=== PATIENT | male | born 1955 | race Caucasian/White ===

== ENCOUNTER 2017-08-11 15:19 | Emergency (ER) | payer MEDICARE, OTHER ==
[~2017-08-11] VITALS: Ht 188 cm; Wt 125.0 kg
[~2017-08-11 15:19] MED LIST: BISA10SU8 PR; CLIN150 PO; CLON.1 PO; FERR324T4 PO; FLEEENE3 PR; FURO1TAB93 PO; HYDRA50 PO; ISOS60TA PO; LANTUS2P SQ; LANTUSP SQ; LISI10 PO; MAGN1SOL2 PO; MAGN30S PO; MELA3TAB PO; METO25 PO; NEPHTAB3 PO; NIFE90 PO; NOVOLOGP2 SQ; PERC5TAB12 PO; PHEN100 PO; PREG300 PO; SPIR25 PO; ZOLP10TA3 PO; [UNRECOGNIZED DRUG - CODE] PO
[2017-08-11 15:22] VITALS: BP 186/89; PULSE 112; RESP 20; O2SAT 97
[2017-08-11] MEDS ORDERED: SODIUM CHLORIDE 0.9% FLUSH 10 ML FLUSH IVF PRN (15:30)
[2017-08-11] MEDS ORDERED: ASPIRIN 81 MG CHEW TAB PO ONE (15:30)
[2017-08-11 15:42] VITALS: O2SAT 100
--- NOTE | 2017-08-11 15:42 | PD ---
HPI Chief Complaint: Chest Pain Time Seen by Provider: 15:24 Travel History International Travel<30 days: No Contact w/Intl Traveler<30days: No Traveled to known affect area: No History of Present Illness HPI Patient is a 62-year-old male presents emergency department with chest pain a bandlike presentation over his inferior most chest and superiormost abdomen on and off for the past week. Patient was just released from [facility] approximately 6 days ago after having a stress test. 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 Denies any shortness of breath nausea vomiting or diarrhea. He is a dialysis patient has been compliant with his dialysis and is due for dialysis tomorrow morning. States the pain is cramping , location as above, contacts as above, duration as above PFSH Past Medical History Anemia: Yes Arthritis: Yes Autoimmune Disease: No Blood Disorders: No Anxiety: Yes Depression: Yes Heart Rhythm Problems: No Cancer: No Cardiovascular Problems: Yes High Cholesterol: No Chemotherapy: No Chest Pain: No Congestive Heart Failure: No Diabetes: Yes Patient Takes Glucophage: No Dialysis: Yes (tues, th, sat) Diminished Hearing: No Endocrine: Yes Gastrointestinal Disorders: Yes GERD: Yes Genitourinary: No Hepatitis: Yes Hiatal Hernia: No Hypertension: Yes Immune Disorder: No Kidney Stones: Yes Musculoskeletal: Yes Neurologic: Yes ("ALTERED MENTAL STATUS"/ACUTE ENCEPHALOPATHY) Psychiatric: No Reproductive: No Respiratory: No Myocardial Infarction: No Radiation Therapy: No Renal Failure: Yes (STAGE 3 KIDNEY FAILURE) Thyroid Disease: No Ulcer: No Tetanus Vaccination: < 5 Years Influenza Vaccination: Yes Past Surgical History Abdominal Surgery: No AICD: No Appendectomy: No Arteriovenous Shunt: No Body Medical Devices: vas cath right chest Cardiac Surgery: No Cholecystectomy: Yes Ear Surgery: No Endocrine Surgery: No Eye Surgery: No Genitourinary Surgery: No Gynecologic Surgery: No Insulin Pump: No Joint Replacement: Yes (LEFT KNEE AND HIP) Neurologic Surgery: No Oral Surgery: No Pacemaker: No Thoracic Surgery: No Other Surgery: Yes Social History Alcohol Use: No Tobacco Use: No ( ) Substance Use: Yes (pt admits to meth) Allergies-Medications (Allergen,Severity, Reaction): Coded Allergies: *MDRO Multi-Drug Resistant Organism (Verified Allergy, Unknown, 01/14/15) 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 Reported Meds & Prescriptions Reported Meds & Active Scripts Active Reported Santyl Topical (Collagenase) 250 Unit/Gm Oint 1 Applic TOPICAL DAILY Catapres (Clonidine) 0.2 Mg Tab 0.2 Mg PO TID PRN Plavix (Clopidogrel Bisulfate) 75 Mg Tab 75 Mg PO DAILY Gabapentin 300 Mg Cap 300 Mg PO BID Dilantin (Phenytoin Extended) 100 Mg Cap 100 Mg PO TID Calcium Acetate (Phosphate Binder) 667 Mg Cap 1,334 Mg PO TID WITH MEALS Lasix (Furosemide) 40 Mg Tab 40 Mg PO DAILY Lipitor (Atorvastatin Calcium) 20 Mg Tab 20 Mg PO HS Metoprolol Succinate ER 24 HR (Metoprolol Succinate) 50 Mg Tab 50 Mg PO DAILY Lantus Inj (Insulin Glargine) 100 Unit/Ml Inj 34 Units SQ DAILY Review of Systems Except as stated in HPI: all other systems reviewed are Neg Physical Exam Narrative GENERAL: Well-developed morbidly obese male in no obvious distress. SKIN: Focused skin assessment warm/dry. HEAD: Atraumatic. Normocephalic. EYES: Pupils equal and round. No scleral icterus. No injection or drainage. ENT: No nasal bleeding or discharge. Mucous membranes pink and moist. NECK: Trachea midline. No JVD. CARDIOVASCULAR: Regular rate and rhythm. No murmur appreciated. 2+ bilateral equal pulses in all 4 extremities per RESPIRATORY: No accessory muscle use. Clear to auscultation. Breath sounds equal bilaterally. GASTROINTESTINAL: Abdomen soft, non-tender, nondistended. Hepatic and splenic margins not palpable. MUSCULOSKELETAL: No obvious deformities. No clubbing. No cyanosis. No edema. NEUROLOGICAL: Awake and alert. No obvious cranial nerve deficits. Motor grossly within normal limits. Normal speech. PSYCHIATRIC: Appropriate mood and affect; insight and judgment normal. Data Data Last Documented VS Vital Signs Date Time Temp Pulse Resp B/P (MAP) Pulse Ox O2 Delivery O2 Flow Rate FiO2 08/11/17 17:55 75 16 137/55 (82) 97 Nasal Cannula 2.00 Orders Orders Ckmb (Isoenzyme) Profile (08/11/17 15:29) Complete Blood Count With Diff (08/11/17 15:29) Comprehensive Metabolic Panel (08/11/17 15:29) Magnesium (Mg) (08/11/17 15:29) Prothrombin Time / Inr (Pt) (08/11/17 15:29) Act Partial Throm Time (Ptt) (08/11/17 15:29) Troponin I (08/11/17 15:29) Chest, Single Ap (08/11/17 15:29) Ecg Monitoring (08/11/17 15:29) Iv Access Insert/Monitor (08/11/17 15:29) Oximetry (08/11/17 15:29) Oxygen Administration (08/11/17 15:29) Aspirin Chew (Aspirin Chew) (08/11/17 15:30) Sodium Chloride 0.9% Flush (Ns Flush) (08/11/17 15:30) Nitroglycerin Sl (Nitrostat Sl) (08/11/17 16:15) Morphine Inj (Morphine Inj) (08/11/17 17:00) Us Abdomen Gallbladder (08/11/17 ) Electrocardiogram (08/11/17 15:28) Acetamin-Hydrocod 325-5 Mg ([place] 5-325 (08/11/17 19:15) Ed Discharge Order (08/11/17 19:13) Labs Laboratory Tests Test 08/11/17 15:35 White Blood Count 7.2 TH/MM3 Red Blood Count 3.23 MIL/MM3 Hemoglobin 10.1 GM/DL Hematocrit 30.2 % Mean Corpuscular Volume 93.7 FL Mean Corpuscular Hemoglobin 31.2 PG Mean Corpuscular Hemoglobin Concent 33.3 % Red Cell Distribution Width 15.6 % Platelet Count 176 TH/MM3 Mean Platelet Volume 7.8 FL Neutrophils (%) (Auto) 79.6 % Lymphocytes (%) (Auto) 11.1 % Monocytes (%) (Auto) 6.7 % Eosinophils (%) (Auto) 2.1 % Basophils (%) (Auto) 0.5 % Neutrophils # (Auto) 5.7 TH/MM3 Lymphocytes # (Auto) 0.8 TH/MM3 Monocytes # (Auto) 0.5 TH/MM3 Eosinophils # (Auto) 0.2 TH/MM3 Basophils # (Auto) 0.0 TH/MM3 CBC Comment DIFF FINAL Differential Comment Prothrombin Time 11.0 SEC Prothromb Time International Ratio 1.1 RATIO Activated Partial Thromboplast Time 26.9 SEC Blood Urea Nitrogen 41 MG/DL Creatinine 3.40 MG/DL Random Glucose 268 MG/DL Total Protein 7.3 GM/DL Albumin 3.5 GM/DL Calcium Level 8.0 MG/DL Magnesium Level 2.1 MG/DL Alkaline Phosphatase 180 U/L Aspartate Amino Transf (AST/SGOT) 60 U/L Alanine Aminotransferase (ALT/SGPT) 80 U/L Total Bilirubin 0.4 MG/DL Sodium Level 139 MEQ/L Potassium Level 4.3 MEQ/L Chloride Level 104 MEQ/L Carbon Dioxide Level 26.6 MEQ/L Anion Gap 8 MEQ/L Estimat Glomerular Filtration Rate 18 ML/MIN Total Creatine Kinase 62 U/L Troponin I LESS THAN 0.02 NG/ML MDM Medical Decision Making Medical Screen Exam Complete: Yes Emergency Medical Condition: Yes Differential Diagnosis Chest pain, ACS seems unlikely, OH unlikely, pink otitis, gastritis, gastroenteritis Narrative Course Patient fairly atypical chest pain, workup in the emergency department negative , he called nursing staff several times stating he was in severe pain but every time I went to reassess him he was sleeping soundly and appear to be in no obvious distress. Patient discussed with Pam Medina account management assistant to Dr. Ludwig, patient discharged 08/04/17 from [facility]. Discharge summary from Dr. Presley at [facility] had spect scan, echo, mri head all of which were reassuring though the spect scan did show fixed defect. According to discharge summary patient was consulted to cardiology and was cleared for release and was instructed to follow up with Dr. Barrios. He was according to the discharge summary still having pain when he left the hospital. Very polite and pleasant gentleman I have discussed with him the above results and recommendations from Ms. Medina. Discussed that no etiology has been identified for his chest pain but I do not think that admission to the hospital repeat this workup is warranted at this time. He verbalized understanding and agreement. At this time, patient has atypical chest pain, has already had near complete workup and i think that he is stable for outpatient follow up. Pam states that she can get him to see Dr. Ludwig first thing tomorrow and can get him into see Dr. Barrios this week. Diagnosis Primary Impression: Chest pain Disposition: 01 DISCHARGE HOME Condition: Stable Wesley Webster MD Aug 11, 2017 15:42
[2017-08-11 16:04] LABS: AUTOMATED NEUTROPHIL # 5.7 TH/MM3 (1.8-7.7); BASOPHIL % 0.5 % (0.0-2.0); EOSINOPHIL # 0.2 TH/MM3 (0-0.4); EOSINOPHIL % 2.1 % (0.0-4.0); HEMATOCRIT 30.2 % (39.0-51.0); HEMOGLOBIN 10.1 GM/DL (13.0-17.0); LYMPH % 11.1 % (9.0-44.0); LYMPHOCYTE # 0.8 TH/MM3 (1.0-4.8); MEAN CELL VOLUME 93.7 FL (80.0-100.0); MEAN CORPUSCULAR HEMOGLOBIN 31.2 PG (27.0-34.0); MEAN CORPUSCULAR HGB CONC 33.3 % (32.0-36.0); MEAN PLATELET VOLUME 7.8 FL (7.0-11.0); MONO % 6.7 % (0.0-8.0); MONOCYTE # 0.5 TH/MM3 (0-0.9); NEUT % 79.6 % (16.0-70.0); PLATELET COUNT 176 TH/MM3 (150-450); RED BLOOD COUNT 3.23 MIL/MM3 (4.50-5.90); RED CELL DISTRIBUTION WIDTH 15.6 % (11.6-17.2); WHITE BLOOD COUNT 7.2 TH/MM3 (4.0-11.0)
[2017-08-11 16:12] LABS: INTERNATIONAL NORMALIZED RATIO 1.1 RATIO
[2017-08-11] MEDS ORDERED: NITROGLYCERIN 0.4 MG SL 25 TABS/BTL SL ONE (16:15)
[2017-08-11 16:30] LABS: ALBUMIN 3.5 GM/DL (3.4-5.0); ALT (GPT) 80 U/L (12-78); AST (GOT) 60 U/L (15-37); BICARBONATE 26.6 MEQ/L (21.0-32.0); BLOOD UREA NITROGEN 41 MG/DL (7-18); CHLORIDE 104 MEQ/L (98-107); GLOMERULAR FILTRATION RATE 18 ML/MIN (>89); GLUCOSE,RANDOM 268 MG/DL (74-106); MAGNESIUM 2.1 MG/DL (1.5-2.5); SODIUM (NA) 139 MEQ/L (136-145)
[2017-08-11 16:34] LABS: ALKALINE PHOSPHATASE 180 U/L (45-117); TOTAL BILIRUBIN ADULT 0.4 MG/DL (0.2-1.0); TOTAL PROTEIN 7.3 GM/DL (6.4-8.2); TROPONIN I LESS THAN 0.02 NG/ML (0.02-0.05)
--- NOTE | 2017-08-11 16:59 | RADRPT ---
EXAM DATE/TIME: 08/11/2017 16:21 [facility] COMPARISON: CHEST SINGLE AP, January 11, 2015, 10:03. INDICATIONS : Chest pain. MEDICAL HISTORY : none known SURGICAL HISTORY : none known ENCOUNTER: Initial ACUITY: 1 day PAIN SCORE: 10/10 LOCATION: Bilateral chest FINDINGS: Right internal jugular tunneled dialysis catheter has its tip in the superior vena cava. No pneumotho rax is noted. The heart is mildly prominent. Mild central pulmonary vascular congestion is noted. CONCLUSION: Mild cardiomegaly and central pulmonary vascular congestion. Wesley Harris MD on August 11, 2017 at 16:56 Board Certified Radiologist. This report was verified electronically.
[2017-08-11] MEDS ORDERED: MORPHINE SULFATE 2 MG/ML INJ IV PUSH ONE (17:00)
[2017-08-11] MEDS ORDERED: METO1TAB9 PO (17:11)
[2017-08-11] MEDS ORDERED: CALC1CAP PO (17:11)
[2017-08-11] MEDS ORDERED: PLAV75TA29 PO (17:11)
[2017-08-11] MEDS ORDERED: LIPI20TA PO (17:11)
[2017-08-11] MEDS ORDERED: LANTUS2P SQ (17:11)
[2017-08-11] MEDS ORDERED: CLON.2 PO (17:11)
[2017-08-11] MEDS ORDERED: FURO1TAB60 PO (17:11)
[2017-08-11] MEDS ORDERED: DILA100C PO (17:11)
[2017-08-11] MEDS ORDERED: COLL30T TOPICAL (17:11)
[2017-08-11] MEDS ORDERED: GABA300C5 PO (17:11)
[2017-08-11 17:55] VITALS: BP 137/55; PULSE 75; RESP 16; O2SAT 97
--- NOTE | 2017-08-11 18:44 | RADRPT ---
EXAM DATE/TIME: 08/11/2017 17:39 [facility] COMPARISON: No previous studies available for comparison. INDICATIONS : Right upper quadrant pain. MEDICAL HISTORY : Gastroesophageal reflux disease. Renal failure, chronic. Renal calculi. Hypertension. Dialysis. Arthr itis. Diabetes. Depresssion. Anxiety. Substance use. Hepatitis. Blood transfusion. Anemia. MRSA. MDRO . SURGICAL HISTORY : Cholecystectomy. Left hip replacement. Left knee replacement. Back surgery. Bilateral toe amputat ions. ENCOUNTER: Initial ACUITY: 4-6 days PAIN SCORE: 7/10 LOCATION: Right upper quadrant MEASUREMENTS: LIVER: 19.7 cm length COMMON DUCT: 7 mm RIGHT KIDNEY: 12.2 x 6.2 x 5.4 cm FINDINGS: LIVER: There is increased echogenicity throughout the liver. No dilated biliary ducts. The portal system is patent. There is no evidence of ascites. COMMON DUCT: No intraluminal mass or stone visualized. GALLBLADDER: Removed PANCREAS: Nonvisualized RIGHT KIDNEY: No evidence of hydronephrosis, stone, or mass. There is some mild increased echogenicity of the renal parenchyma suggestive of chronic medical renal disease. CONCLUSION: 1. Diffuse fatty infiltration of the liver which appears to be enlarged. 2. No biliary tract obstruction. Gideon Arnold MD on August 11, 2017 at 18:40 Board Certified Radiologist. This report was verified electronically.
[2017-08-11] MEDS ORDERED: ACETAMINOPHEN/HYDROcodone 325 MG/5 MG TAB PO ONE (19:15)
--- NOTE | 2017-08-12 21:15 | EKG ---
Date Performed: 08/11/2017 Time Performed: 15:28:13 PTAGE: 62 years EKG: SINUS TACHYCARDIA NONSPECIFIC ST & T-WAVE ABNORMALITY SINCE PRIOR TRACING THE LATERAL ST CH ANGES ARE NEW FOR ISCHEMIA. ABNORMAL RHYTHM ECG PREVIOUS TRACING : 01/11/2015 17.25 DOCTOR: Jaden Villarreal Interpretating Date/Time 08/12/2017 21:13:40
== END 2017-08-11 20:56 | disposition home or self-care (01) ==
LOC: NEPC 15:19
DX: R07.9 Chest pain, unspecified (principal); R94.31 Abnormal electrocardiogram [ECG] [EKG]; E11.9 Type 2 diabetes mellitus without complications; I10 Essential (primary) hypertension; M19.90 Unspecified osteoarthritis, unspecified site; F32.9 Major depressive disorder, single episode, unspecified; Z99.2 Dependence on renal dialysis; Z79.4 Long term (current) use of insulin
CPT/HCPCS: 71045; 76705; 80053; 82550; 83735; 84484; 85025; 85610; 85730; 93005; 96374; 99285; J2270

== ENCOUNTER 2017-08-16 16:28 | Inpatient (IN) | payer OTHER, MEDICARE ==
[~2017-08-16] VITALS: Ht 188 cm; Wt 130.0 kg
[~2017-08-16 16:28] MED LIST changes: -BISA10SU8 PR; +CALC1CAP PO; -CLIN150 PO; -CLON.1 PO; +CLON.2 PO; +COLL30T TOPICAL; +DILA100C PO; -FERR324T4 PO; -FLEEENE3 PR; +FURO1TAB60 PO; -FURO1TAB93 PO; +GABA300C5 PO; -HYDRA50 PO; -ISOS60TA PO; -LANTUSP SQ; +LIPI20TA PO; -LISI10 PO; -MAGN1SOL2 PO; -MAGN30S PO; -MELA3TAB PO; +METO1TAB9 PO; -METO25 PO; -NEPHTAB3 PO; -NIFE90 PO; -NOVOLOGP2 SQ; -PERC5TAB12 PO; -PHEN100 PO; +PLAV75TA29 PO; -PREG300 PO; -SPIR25 PO; -ZOLP10TA3 PO; -[UNRECOGNIZED DRUG - CODE] PO
--- NOTE | 2017-08-16 16:59 | PD ---
HPI Chief Complaint: Chest Pain Time Seen by Provider: 16:40 Travel History International Travel<30 days: No Contact w/Intl Traveler<30days: No Traveled to known affect area: No History of Present Illness HPI patient is a dialysis patient wed//wednesday and has been compliant. per patient he developed 1 week of edema to bilateral LE. onset of sob, along with substernal to epig region pain, orig 8/10, nonrad, onset last night and intermittent, current pain is 6/10 now.... denies any alleviating/aggravating factors. patient denies any assoc factors such as fever/prod cough/backpain/ abdpain/rash/n/v/d all:denies pmhx: hyperlip, dm, ckd with dialysis pcp is dr brandy okeefe [facility] Past Medical History Anemia: Yes Arthritis: Yes Autoimmune Disease: No Blood Disorders: No Anxiety: Yes Depression: Yes Heart Rhythm Problems: No Cancer: No Cardiovascular Problems: Yes High Cholesterol: No Chemotherapy: No Chest Pain: No Congestive Heart Failure: No Diabetes: Yes Dialysis: Yes (, wed) Diminished Hearing: No Endocrine: Yes Gastrointestinal Disorders: Yes GERD: Yes Genitourinary: No Hepatitis: Yes Hiatal Hernia: No Hypertension: Yes Immune Disorder: No Kidney Stones: Yes Musculoskeletal: Yes Neurologic: Yes ("ALTERED MENTAL STATUS"/ACUTE ENCEPHALOPATHY) Psychiatric: No Reproductive: No Respiratory: No Myocardial Infarction: No Radiation Therapy: No Renal Failure: Yes (STAGE 3 KIDNEY FAILURE) Thyroid Disease: No Ulcer: No Past Surgical History Abdominal Surgery: No AICD: No Appendectomy: No Arteriovenous Shunt: No Body Medical Devices: vas cath right chest Cardiac Surgery: No Cholecystectomy: Yes Ear Surgery: No Endocrine Surgery: No Eye Surgery: No Genitourinary Surgery: No Gynecologic Surgery: No Insulin Pump: No Joint Replacement: Yes (LEFT KNEE AND HIP) Neurologic Surgery: No Oral Surgery: No Pacemaker: No Thoracic Surgery: No Other Surgery: Yes Social History Alcohol Use: No Tobacco Use: No ( ) Substance Use: Yes (pt admits to meth) Allergies-Medications (Allergen,Severity, Reaction): Coded Allergies: *MDRO Multi-Drug Resistant Organism (Verified Allergy, Unknown, 08/16/17) 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 Reported Meds & Prescriptions Reported Meds & Active Scripts Active Reported Santyl Topical (Collagenase) 250 Unit/Gm Oint 1 Applic TOPICAL DAILY Catapres (Clonidine) 0.2 Mg Tab 0.2 Mg PO TID PRN Plavix (Clopidogrel Bisulfate) 75 Mg Tab 75 Mg PO DAILY Gabapentin 300 Mg Cap 300 Mg PO BID Dilantin (Phenytoin Extended) 100 Mg Cap 100 Mg PO TID Calcium Acetate (Phosphate Binder) 667 Mg Cap 1,334 Mg PO TID WITH MEALS Lasix (Furosemide) 40 Mg Tab 40 Mg PO DAILY Lipitor (Atorvastatin Calcium) 20 Mg Tab 20 Mg PO HS Metoprolol Succinate ER 24 HR (Metoprolol Succinate) 50 Mg Tab 50 Mg PO DAILY Lantus Inj (Insulin Glargine) 100 Unit/Ml Inj 34 Units SQ DAILY Review of Systems General / Constitutional: No: Fever Eyes: No: Visual changes HENT: No: Headaches Cardiovascular: Positive: Chest Pain or Discomfort Respiratory: Positive: Shortness of Breath Gastrointestinal: No: Abdominal Pain Genitourinary: No: Dysuria Musculoskeletal: No: Pain Skin: No Rash Neurologic: No: Weakness Psychiatric: No: Depression Endocrine: No: Polydipsia Hematologic/Lymphatic: No: Easy Bruising Physical Exam Narrative GENERAL: SKIN: Warm and dry. HEAD: Atraumatic. Normocephalic. EYES: Pupils equal and round. No scleral icterus. No injection or drainage. ENT: No nasal bleeding or discharge. Mucous membranes pink and moist. NECK: Trachea midline. No JVD. CARDIOVASCULAR: Regular rate and rhythm. patient holding fist over chest "yuan sign" present RESPIRATORY: No accessory muscle use. ronchi scattered but without wheezing. GASTROINTESTINAL: Abdomen soft, non-tender, nondistended. MUSCULOSKELETAL: Extremities without clubbing, cyanosis, or 1+ b LE edema. No obvious deformities. NEUROLOGICAL: Awake and alert. No obvious cranial nerve deficits. Motor grossly within normal limits. Five out of 5 muscle strength in the arms and legs. Normal speech. PSYCHIATRIC: Appropriate mood and affect; insight and judgment normal. Data Data Last Documented VS Vital Signs Date Time Temp Pulse Resp B/P (MAP) Pulse Ox O2 Delivery O2 Flow Rate FiO2 08/16/17 18:05 68 22 183/65 (104) 98 Nasal Cannula 2.00 08/16/17 17:05 98.3 Orders Orders Electrocardiogram (08/16/17 16:50) B-Type Natriuretic Peptide (08/16/17 16:50) Ckmb (Isoenzyme) Profile (08/16/17 16:50) Complete Blood Count With Diff (08/16/17 16:50) Comprehensive Metabolic Panel (08/16/17 16:50) Prothrombin Time / Inr (Pt) (08/16/17 16:50) Act Partial Throm Time (Ptt) (08/16/17 16:50) Troponin I (08/16/17 16:50) Lipase (08/16/17 16:50) Chest, Single Ap (08/16/17 16:50) Ecg Monitoring (08/16/17 16:50) Iv Access Insert/Monitor (08/16/17 16:50) Oximetry (08/16/17 16:50) Aspirin Chew (Aspirin Chew) (08/16/17 17:00) Nitroglycerin 2% Oint (Nitroglycerin 2% (08/16/17 17:00) Sodium Chloride 0.9% Flush (Ns Flush) (08/16/17 17:00) Morphine Inj (Morphine Inj) (08/16/17 17:00) Arterial Blood Gas (Abg) (08/16/17 17:26) Vascular Access Team Consult/P PRN (08/16/17 17:26) Vascular Poc Ultrasound (08/16/17 ) CKMB (08/16/17 17:50) CKMB% (08/16/17 17:50) Admit To Inpatient (08/16/17 ) Vital Signs (Adult) MANI.Q4H (08/16/17 18:54) Truss Maker / Telemetry MANI.Q8H (08/16/17 18:54) Inpatient Certification (08/16/17 ) Atorvastatin (Lipitor) (08/16/17 21:00) Clonidine (Catapres) (08/16/17 19:00) Gabapentin (Neurontin) (08/16/17 21:00) Metoprolol Succinate Er (Toprol Xl) (08/17/17 09:00) Admit Order (Ed Use Only) (08/16/17 18:57) Resp Oxygen Tomasz C Titrat 1-4 L (08/16/17 ) Labs Laboratory Tests Test 08/16/17 17:50 08/16/17 18:09 White Blood Count 11.5 TH/MM3 Red Blood Count 3.40 MIL/MM3 Hemoglobin 10.3 GM/DL Hematocrit 31.3 % Mean Corpuscular Volume 91.8 FL Mean Corpuscular Hemoglobin 30.1 PG Mean Corpuscular Hemoglobin Concent 32.8 % Red Cell Distribution Width 15.2 % Platelet Count 239 TH/MM3 Mean Platelet Volume 7.5 FL Neutrophils (%) (Auto) 78.1 % Lymphocytes (%) (Auto) 9.3 % Monocytes (%) (Auto) 5.8 % Eosinophils (%) (Auto) 3.3 % Basophils (%) (Auto) 3.5 % Neutrophils # (Auto) 8.9 TH/MM3 Lymphocytes # (Auto) 1.1 TH/MM3 Monocytes # (Auto) 0.7 TH/MM3 Eosinophils # (Auto) 0.4 TH/MM3 Basophils # (Auto) 0.4 TH/MM3 CBC Comment DIFF FINAL Differential Comment Prothrombin Time 11.3 SEC Prothromb Time International Ratio 1.1 RATIO Activated Partial Thromboplast Time 25.8 SEC Blood Urea Nitrogen 55 MG/DL Creatinine 4.60 MG/DL Random Glucose 253 MG/DL Total Protein 7.8 GM/DL Albumin 3.9 GM/DL Calcium Level 8.5 MG/DL Alkaline Phosphatase 156 U/L Aspartate Amino Transf (AST/SGOT) 56 U/L Alanine Aminotransferase (ALT/SGPT) 40 U/L Total Bilirubin 0.7 MG/DL Sodium Level 134 MEQ/L Potassium Level 5.1 MEQ/L Chloride Level 101 MEQ/L Carbon Dioxide Level 24.6 MEQ/L Anion Gap 8 MEQ/L Estimat Glomerular Filtration Rate 13 ML/MIN Total Creatine Kinase 125 U/L Creatine Kinase MB 2.2 NG/ML Troponin I 0.08 NG/ML B-Type Natriuretic Peptide 618 PG/ML Lipase 133 U/L Blood Gas Puncture Site RT RADIAL Blood Gas Patient Temperature 98.6 Blood Gas HCO3 23 mmol/L Blood Gas Base Excess -1.7 mmol/L Blood Gas Oxygen Saturation 89 % Arterial Blood pH 7.38 Arterial Blood Partial Pressure CO2 40 mmHG Arterial Blood Partial Pressure O2 64 mmHG Arterial Blood Oxygen Content 13.7 Vol % Arterial Blood Carboxyhemoglobin 2.2 % Arterial Blood Methemoglobin 1.0 % Blood Gas Hemoglobin 10.9 G/DL Oxygen Delivery Device RA Blood Gas Inspired Oxygen 21 % MDM Medical Decision Making Medical Screen Exam Complete: Yes Emergency Medical Condition: Yes Medical Record Reviewed: Yes Interpretation(s) SINUS rhythm, first degree av block, no stemi pattern noted however did note minimal st depression on lateral leads Differential Diagnosis pna v ptx v pulm edema v stemi v nonstemi Narrative Course CXR SHOWS PULM EDEMA, BNP 600, TROP .08, RENAL INSUFF, WILL NEED ADDITIONAL DIALYSIS Critical Care Narrative CRITICAL CARE NOTE: With evaluation of the patient, labs, EKG, receipt of radiologic studies, administration of medications, reevaluation the patient and discussion of the patient with the admitting physicians, the total critical care time was [30] minutes. Time to perform other separately billable procedures was not included in the critical care time. Diagnosis Primary Impression: PULMONARY EDEMA Additional Impression: NONSTEMI Admitting Information Admitting Physician Requests: Johnson Hilario MD Aug 16, 2017 16:59
[2017-08-16] MEDS ORDERED: NITROGLYCERIN 2% OINT 1 GM PACKET TOP ONE (17:00)
[2017-08-16] MEDS ORDERED: SODIUM CHLORIDE 0.9% FLUSH 10 ML FLUSH IVF PRN (17:00)
[2017-08-16] MEDS ORDERED: ASPIRIN 81 MG CHEW TAB PO ONE (17:00)
[2017-08-16] MEDS ORDERED: MORPHINE SULFATE 4 MG/ML INJ IV PUSH ONE (17:00)
[2017-08-16 17:05] VITALS: BP 182/90; PULSE 73; RESP 22; TEMP 98.3; O2SAT 94; O2SAT 97
--- NOTE | 2017-08-16 17:41 | RADRPT ---
EXAM DATE/TIME: 08/16/2017 17:05 [facility] COMPARISON: CHEST SINGLE AP, August 11, 2017, 16:21. INDICATIONS : Chest pain and shortness of breath, bilateral lower extremity swelling. MEDICAL HISTORY : Gastroesophageal reflux disease. Renal failure, chronic. Renal calculi. Hypertension.MRSA MDRO SURGICAL HISTORY : Cholecystectomy. Left hip replacement. Left knee replacement. Back surgery. ENCOUNTER: Initial ACUITY: 2 days PAIN SCORE: 6/10 LOCATION: Bilateral upper chest FINDINGS: A single view of the chest demonstrates increasing interstitial prominence with possible developing s mall effusions. Heart size is borderline prominent. Right IJ dialysis type catheter with the tip proj ecting over the central venous system. Degenerative spurring of the dorsal spine.. CONCLUSION: 1. Worsening interstitial prominence with possible developing small pleural effusions characteristic of some degree of vascular congestion or volume overload. 2. Stable borderline prominent heart size. 3. Stable position of right IJ dialysis type catheter. Bennett Magallanes MD on August 16, 2017 at 17:36 Board Certified Radiologist. This report was verified electronically.
[2017-08-16 18:01] LABS: AUTOMATED NEUTROPHIL # 8.9 TH/MM3 (1.8-7.7); BASOPHIL # 0.4 TH/MM3 (0-0.2); BASOPHIL % 3.5 % (0.0-2.0); EOSINOPHIL # 0.4 TH/MM3 (0-0.4); EOSINOPHIL % 3.3 % (0.0-4.0); HEMATOCRIT 31.3 % (39.0-51.0); HEMOGLOBIN 10.3 GM/DL (13.0-17.0); LYMPH % 9.3 % (9.0-44.0); LYMPHOCYTE # 1.1 TH/MM3 (1.0-4.8); MEAN CELL VOLUME 91.8 FL (80.0-100.0); MEAN CORPUSCULAR HEMOGLOBIN 30.1 PG (27.0-34.0); MEAN CORPUSCULAR HGB CONC 32.8 % (32.0-36.0); MEAN PLATELET VOLUME 7.5 FL (7.0-11.0); MONO % 5.8 % (0.0-8.0); MONOCYTE # 0.7 TH/MM3 (0-0.9); NEUT % 78.1 % (16.0-70.0); PLATELET COUNT 239 TH/MM3 (150-450); RED CELL DISTRIBUTION WIDTH 15.2 % (11.6-17.2); WHITE BLOOD COUNT 11.5 TH/MM3 (4.0-11.0)
[2017-08-16 18:05] VITALS: BP 183/65; PULSE 68; RESP 22; O2SAT 98
[2017-08-16 18:10] LABS: CHLORIDE 101 MEQ/L (98-107); SODIUM (NA) 134 MEQ/L (136-145)
[2017-08-16 18:13] LABS: ALBUMIN 3.9 GM/DL (3.4-5.0); BICARBONATE 24.6 MEQ/L (21.0-32.0); CALCIUM 8.5 MG/DL (8.5-10.1); GLUCOSE,RANDOM 253 MG/DL (74-106)
[2017-08-16 18:14] LABS: BLOOD UREA NITROGEN 55 MG/DL (7-18)
[2017-08-16 18:15] LABS: INTERNATIONAL NORMALIZED RATIO 1.1 RATIO; PROTHROMBIN TIME - PATIENT 11.3 SEC (9.8-11.6)
[2017-08-16 18:16] LABS: ALT (GPT) 40 U/L (12-78); AST (GOT) 56 U/L (15-37)
[2017-08-16 18:17] LABS: GLOMERULAR FILTRATION RATE 13 ML/MIN (>89)
[2017-08-16 18:18] LABS: TOTAL BILIRUBIN ADULT 0.7 MG/DL (0.2-1.0); TOTAL PROTEIN 7.8 GM/DL (6.4-8.2)
[2017-08-16 18:19] LABS: ALKALINE PHOSPHATASE 156 U/L (45-117)
[2017-08-16 18:21] LABS: TROPONIN I 0.08 NG/ML (0.02-0.05)
[2017-08-16] MEDS ORDERED: cloNIDine HCL 0.2 MG TAB PO PRN (19:00)
[2017-08-16 19:14] VITALS: BP 161/61; PULSE 67; RESP 18; O2SAT 100
[2017-08-16 20:18] VITALS: BP 158/52; PULSE 65; RESP 18; O2SAT 98
[2017-08-16 21:25] VITALS: BP 153/79; PULSE 64; RESP 22; TEMP 97.6; O2SAT 99
[2017-08-16] MEDS ORDERED: NITROGLYCERIN 0.4 MG SL 25 TABS/BTL SL PRN (21:30)
[2017-08-16] MEDS ORDERED: FUROSEMIDE 40 MG/4 ML VIAL IV PUSH ONE (21:30)
[2017-08-16] MEDS: ATORVASTATIN 20 MG TAB PO SCH (21:38)
[2017-08-16] MEDS: GABAPENTIN 300 MG CAP PO SCH (21:38)
[2017-08-16 23:46] VITALS: BP 144/59; PULSE 62; RESP 15; TEMP 97.7; O2SAT 98
[2017-08-17] VITALS (26 sets, daily range): BP systolic 117–189; BP diastolic 59–88; PULSE 56–89; RESP 13–30; TEMP 97.2–97.9; O2SAT 95–100
[2017-08-17] MEDS ORDERED: DEXTROSE 50% IN WATER 50 ML VIAL(D50) IV PUSH PRN (07:45)
[2017-08-17] MEDS ORDERED: GLUCAGON 1 MG/ML VIAL OTHER PRN (07:45)
[2017-08-17] MEDS ORDERED: NITROGLYCERIN 2% OINT 1 GM PACKET TOPICAL SCH (08:30)
[2017-08-17 08:32] LABS: AUTOMATED NEUTROPHIL # 7.9 TH/MM3 (1.8-7.7); BASOPHIL % 0.2 % (0.0-2.0); EOSINOPHIL # 0.4 TH/MM3 (0-0.4); EOSINOPHIL % 3.7 % (0.0-4.0); HEMOGLOBIN 9.9 GM/DL (13.0-17.0); LYMPH % 10.5 % (9.0-44.0); LYMPHOCYTE # 1.1 TH/MM3 (1.0-4.8); MEAN CELL VOLUME 93.6 FL (80.0-100.0); MEAN CORPUSCULAR HGB CONC 34.2 % (32.0-36.0); MEAN PLATELET VOLUME 7.4 FL (7.0-11.0); MONO % 6.5 % (0.0-8.0); MONOCYTE # 0.7 TH/MM3 (0-0.9); NEUT % 79.1 % (16.0-70.0); PLATELET COUNT 179 TH/MM3 (150-450); RED CELL DISTRIBUTION WIDTH 15.8 % (11.6-17.2); WHITE BLOOD COUNT 10.1 TH/MM3 (4.0-11.0)
[2017-08-17 08:39] LABS: CHLORIDE 102 MEQ/L (98-107); SODIUM (NA) 136 MEQ/L (136-145)
[2017-08-17 08:44] LABS: ALBUMIN 3.8 GM/DL (3.4-5.0); BICARBONATE 25.9 MEQ/L (21.0-32.0); BLOOD UREA NITROGEN 64 MG/DL (7-18); CALCIUM 8.5 MG/DL (8.5-10.1); GLUCOSE,RANDOM 254 MG/DL (74-106)
--- NOTE | 2017-08-17 08:45 | HHI.HP ---
[facility] Bridger Ludwig MD Admission Diagnosis PULM EDEMA, NONSTEMI Diagnoses: (1) ESRD (end stage renal disease) on dialysis (2) Fluid overload (3) Diabetes (4) Hyperlipidemia (5) Chest pain (6) Elevated troponin I level Chief Complaint: Chest pain Travel History International Travel<30 Days: No Contact w/Intl Traveler <30 Da: No Traveled to Known Affected Are: No History of Present Illness Patient is 62-year-old male with history of end-stage renal disease on hemodialysis who presented to the emergency department with complaint of chest pain that started Wednesday night. He states that it has been constant since then. It is currently 10/10. Pain is described as sharp and in the epigastric and substernal regions. The pain radiates to his back. It is associated with dyspnea. It is slightly worse with taking deep breaths or coughing. No change in the pain with eating or activity. He states that he is scheduled to see a welfare case worker in the office next week, but has not seen a welfare case worker previously. Review of Systems Constitutional: COMPLAINS OF: Chills, DENIES: Fever, Night Sweats Eyes: DENIES: Blurred vision, Vision loss Ears, nose, mouth, throat: DENIES: Hearing loss Respiratory: COMPLAINS OF: Shortness of breath, DENIES: Cough, Wheezing, Sputum production Cardiovascular: COMPLAINS OF: Chest pain, DENIES: Palpitations, Dyspnea on Exertion, Lower Extremity Edema Gastrointestinal: COMPLAINS OF: Nausea, DENIES: Abdominal pain, Constipation, Diarrhea, Vomiting Genitourinary: DENIES: Urinary frequency, Urinary incontinence, Urgency, Hematuria, Dysuria, Nocturia Musculoskeletal: DENIES: Joint pain, Muscle aches Integumentary: DENIES: Pruritus, Rash Hematologic/lymphatic: DENIES: Bruising Neurologic: DENIES: Headache Past Family Social History Past Medical History End-stage renal disease on hemodialysis Wednesday//Wednesday Hyperlipidemia Diabetes mellitus Hypertension GERD Seizure disorder Past Surgical History Vas-Cath, right chest Cholecystectomy Left knee and hip surgery Reported Medications Santyl Topical (Collagenase) 250 Unit/Gm Oint 1 Applic TOPICAL DAILY Catapres (Clonidine) 0.2 Mg Tab 0.2 Mg PO TID PRN Plavix (Clopidogrel Bisulfate) 75 Mg Tab 75 Mg PO DAILY Gabapentin 300 Mg Cap 300 Mg PO BID Dilantin (Phenytoin Extended) 100 Mg Cap 100 Mg PO TID Calcium Acetate (Phosphate Binder) 667 Mg Cap 1,334 Mg PO TID WITH MEALS Lasix (Furosemide) 40 Mg Tab 40 Mg PO DAILY Lipitor (Atorvastatin Calcium) 20 Mg Tab 20 Mg PO HS Metoprolol Succinate ER 24 HR (Metoprolol Succinate) 50 Mg Tab 50 Mg PO DAILY Lantus Inj (Insulin Glargine) 100 Unit/Ml Inj 34 Units SQ DAILY Allergies: Coded Allergies: *MDRO Multi-Drug Resistant Organism (Verified Allergy, Unknown, 08/16/17) 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 Family History Diabetes mellitus Social History Denies alcohol, tobacco, or illicit drug use. Physical Exam Vital Signs Vital Signs Date Time Temp Pulse Resp B/P (MAP) Pulse Ox O2 Delivery O2 Flow Rate FiO2 08/17/17 04:00 58 08/17/17 03:35 97.9 58 13 152/73 (99) 98 08/17/17 00:00 62 08/16/17 23:46 97.7 62 15 144/59 (87) 98 08/16/17 21:25 64 08/16/17 21:25 97.6 64 22 153/79 (103) 99 08/16/17 21:20 67 18 100 Nasal Cannula 2.00 08/16/17 20:18 65 18 158/52 (87) 98 Nasal Cannula 2.00 08/16/17 19:14 67 18 161/61 (94) 100 Nasal Cannula 2.00 08/16/17 18:05 68 22 183/65 (104) 98 Nasal Cannula 2.00 08/16/17 17:05 73 22 96 Nasal Cannula 2.00 08/16/17 17:05 98.3 73 22 182/90 (120) 94 08/16/17 17:05 97 Nasal Cannula 2.00 Physical Exam GENERAL: Well-nourished, well-developed male in no acute distress. HEENT: Normocephalic, atraumatic. Pupils equal, round and reactive. Extraocular movements intact. No scleral icterus. No injection or drainage. Oropharynx is clear. Mucous membranes are moist. CARDIOVASCULAR: Regular rate and rhythm without murmurs, gallops, or rubs. RESPIRATORY: Bibasilar crackles. Breathing is non-labored. GASTROINTESTINAL: Abdomen soft, non-tender, nondistended. EXTREMITIES: 1+ bilateral lower extremity edema. No calf tenderness. Lower extremity wounds bandaged. Erythema both lower legs. PSYCH: Alert and oriented x 3. Laboratory Laboratory Tests Test 08/16/17 17:50 08/16/17 18:09 White Blood Count 11.5 Red Blood Count 3.40 Hemoglobin 10.3 Hematocrit 31.3 Mean Corpuscular Volume 91.8 Mean Corpuscular Hemoglobin 30.1 Mean Corpuscular Hemoglobin Concent 32.8 Red Cell Distribution Width 15.2 Platelet Count 239 Mean Platelet Volume 7.5 Neutrophils (%) (Auto) 78.1 Lymphocytes (%) (Auto) 9.3 Monocytes (%) (Auto) 5.8 Eosinophils (%) (Auto) 3.3 Basophils (%) (Auto) 3.5 Neutrophils # (Auto) 8.9 Lymphocytes # (Auto) 1.1 Monocytes # (Auto) 0.7 Eosinophils # (Auto) 0.4 Basophils # (Auto) 0.4 CBC Comment DIFF FINAL Differential Comment Prothrombin Time 11.3 Prothromb Time International Ratio 1.1 Activated Partial Thromboplast Time 25.8 Blood Urea Nitrogen 55 Creatinine 4.60 Random Glucose 253 Total Protein 7.8 Albumin 3.9 Calcium Level 8.5 Alkaline Phosphatase 156 Aspartate Amino Transf (AST/SGOT) 56 Alanine Aminotransferase (ALT/SGPT) 40 Total Bilirubin 0.7 Sodium Level 134 Potassium Level 5.1 Chloride Level 101 Carbon Dioxide Level 24.6 Anion Gap 8 Estimat Glomerular Filtration Rate 13 Total Creatine Kinase 125 Creatine Kinase MB 2.2 Troponin I 0.08 B-Type Natriuretic Peptide 618 Lipase 133 Blood Gas Puncture Site RT RADIAL Blood Gas Patient Temperature 98.6 Blood Gas HCO3 23 Blood Gas Base Excess -1.7 Blood Gas Oxygen Saturation 89 Arterial Blood pH 7.38 Arterial Blood Partial Pressure CO2 40 Arterial Blood Partial Pressure O2 64 Arterial Blood Oxygen Content 13.7 Arterial Blood Carboxyhemoglobin 2.2 Arterial Blood Methemoglobin 1.0 Blood Gas Hemoglobin 10.9 Oxygen Delivery Device RA Blood Gas Inspired Oxygen 21 Result Diagram: 08/16/17174908/16/171749 Imaging Last Impressions Chest X-Ray 08/16/17 165 Signed Impressions: Service Date/Time: Wednesday, August 16, 2017 17:05 - CONCLUSION: 1. Worsening interstitial prominence with possible developing small pleural effusions characteristic of some degree of vascular congestion or volume overload. 2. Stable borderline prominent heart size. 3. Stable position of right IJ dialysis type catheter. MD Dilip Matias VTE Risk Assessment Dilip VTE Risk Assessment: Mod/High Risk (score >= 2) Caprini Risk Assessment Model Point Value = 1 Point Value = 2 Point Value = 3 Point Value = 5 Age 41-60 Minor surgery BMI > 25 kg/m2 Swollen legs Varicose veins or History of unexplained or recurrent spontaneous Oral contraceptives or hormone replacement Sepsis (< 1 month) Serious lung disease, including pneumonia (< 1 month) Abnormal pulmonary function Acute myocardial infarction Congestive heart failure (< 1 month) History of inflammatory bowel disease Medical patient at bed rest Age 61-74 Arthroscopic surgery Major open surgery (> 45 min) Laparoscopic surgery (> 45 min) Malignancy Confined to bed (> 72 hours) Immobilizing plaster cast Central venous access Age >= 75 History of VTE Family history of VTE Factor V Leiden Prothrombin [id number] Lupus anticoagulant Anticardiolipin antibodies Elevated serum homocysteine Heparin-induced thrombocytopenia Other congenital or acquired thrombophilia Stroke (< 1 month) Elective arthroplasty Hip, pelvis, or leg fracture Acute spinal cord injury (< 1 month) Prophylaxis Regimen Total Risk Factor Score Risk Level Prophylaxis Regimen 0-1 Low Early ambulation 2 Moderate Order ONE of the following: *Sequential Compression Device (SCD) *Heparin 5000 units SQ BID 3-4 Higher Order ONE of the following medications: *Heparin 5000 units SQ TID *Enoxaparin/Lovenox 40 mg SQ daily (WT < 150 kg, CrCl > 30 mL/min) *Enoxaparin/Lovenox 30 mg SQ daily (WT < 150 kg, CrCl > 10-29 mL/min) *Enoxaparin/Lovenox 30 mg SQ BID (WT < 150 kg, CrCl > 30 mL/min) AND/OR *Sequential Compression Device (SCD) 5 or more Highest Order ONE of the following medications: *Heparin 5000 units SQ TID (Preferred with Epidurals) *Enoxaparin/Lovenox 40 mg SQ daily (WT < 150 kg, CrCl > 30 mL/min) *Enoxaparin/Lovenox 30 mg SQ daily (WT < 150 kg, CrCl > 10-29 mL/min) *Enoxaparin/Lovenox 30 mg SQ BID (WT < 150 kg, CrCl > 30 mL/min) AND *Sequential Compression Device (SCD) Assessment and Plan Assessment and Plan 1. Chest pain: Patient reporting 10/10 sharp substernal/midepigastric chest pain that radiates to the back. Initial troponin is negative. Check serial cardiac enzymes and EKGs. Will consult cardiology. The patient was scheduled to establish with Dr. Villarreal next week. Monitor on telemetry. Continue Nitropaste. Morphine for pain. Continue aspirin. 2. Diabetes mellitus: Continue Levemir. Monitor Accu-Cheks and cover with sliding scale insulin. Diabetic diet. 3. End-stage renal disease on hemodialysis: Nephrology consulted. Patient has hemodialysis Wednesday//Wednesday. 4. Fluid overload: Possibly secondary to renal failure versus congestive heart failure. 2D echocardiogram ordered. Patient will need dialysis today. Continue supplemental oxygen. 5. Hypertension: Continue Toprol-XL. Clonidine as needed. 6. Seizure disorder: Continue Dilantin, gabapentin. 7. DVT prophylaxis: Heparin. Code Status Full code Walter Peterson MD Aug 17, 2017 08:45
[2017-08-17 08:47] LABS: ALT (GPT) 33 U/L (12-78); AST (GOT) 18 U/L (15-37); GLOMERULAR FILTRATION RATE 12 ML/MIN (>89)
[2017-08-17 08:49] LABS: TOTAL BILIRUBIN ADULT 0.7 MG/DL (0.2-1.0); TOTAL PROTEIN 7.7 GM/DL (6.4-8.2)
[2017-08-17 08:50] LABS: ALKALINE PHOSPHATASE 153 U/L (45-117)
[2017-08-17 08:52] LABS: TROPONIN I 0.06 NG/ML (0.02-0.05)
[2017-08-17] MEDS: COLLAGENASE OINT 30 GM TUBE TOPICAL SCH (09:00)
[2017-08-17] MEDS ORDERED: FUROSEMIDE 40 MG TAB PO SCH (09:00)
[2017-08-17] MEDS: MORPHINE SULFATE 2 MG/ML INJ IV PUSH PRN ×4 (09:31→22:39)
[2017-08-17] MEDS: CLOPIDOGREL 75 MG TAB PO SCH (09:32)
[2017-08-17] MEDS: GABAPENTIN 300 MG CAP PO SCH ×2 (09:32→21:36)
[2017-08-17] MEDS: METOPROLOL SUCCINATE 50 MG EXTENDED RELEASE TAB PO SCH (09:33)
[2017-08-17] MEDS: HEPARIN SODIUM - SQ 10,000 UNITS/ML VIAL SQ SCH ×2 (09:33→21:35)
[2017-08-17] MEDS: PANTOPRAZOLE SOD 40 MG DELAYED RELEASE TAB PO SCH (09:33)
[2017-08-17] MEDS: CALCIUM ACETATE 667 MG CAP PO SCH ×3 (09:33→18:15)
[2017-08-17] MEDS: PHENYTOIN SODIUM 100 MG CAP PO SCH ×3 (09:36→18:16)
[2017-08-17] MEDS: INSULIN ASPART SUPPLEMENTAL SCALE SQ SCH ×4 (09:58→21:35)
[2017-08-17] MEDS: INSULIN DETEMIR 100 UNITS/ML VIAL SQ SCH (09:58)
[2017-08-17 10:41] LABS: CHOLESTEROL 73 MG/DL (120-200)
[2017-08-17 10:48] LABS: CHOLESTEROL/ HDL RATIO 2.66 RATIO; HDL CHOLESTEROL 27.4 MG/DL (40.0-60.0); LDL CHOLESTEROL 30 MG/DL (0-99); TRIGLYCERIDES 79 MG/DL (42-150)
--- NOTE | 2017-08-17 10:56 | ECHRPT ---
Indication: Heart failure, unspecified CONCLUSIONS Normal left ventricular size. Wall thickness is normal. The left ventricular systolic function is hyperdynamic with an estimated ejection fraction greater t ferrell 80%. Normal wall motion. The right ventricle is mildly dilated. The right ventricular systoilc function is moderately decreased. Trace mitral valve regurgitation. There is mild tricuspid regurgitation. The estimated pulmonary arterial pressure is 63 mmHg. BP: / HR: Rhythm: Sinus MEASUREMENTS (Male / Female) Normal Values Technical Quality:Fair 2D ECHO LV Diastolic Diameter PLAX 5.4 cm 4.2 - 5.9 / 3.9 - 5.3 cm LV Systolic Diameter PLAX 4.5 cm IVS Diastolic Thickness 1.2 cm 0.6 - 1.0 / 0.6 - 0.9 cm LVPW Diastolic Thickness 1.2 cm 0.6 - 1.0 / 0.6 - 0.9 cm LV Relative Wall Thickness 0.4 LVOT Diameter 2.7 cm M-MODE Aortic Root Diameter MM 3.3 cm LA Systolic Diameter MM 5.9 cm LA Ao Ratio MM 1.8 AV Cusp Separation MM 2.4 cm DOPPLER AV Peak Velocity 111.0 cm/s AV Peak Gradient 4.9 mmHg LVOT Peak Velocity 96.7 cm/s LVOT Peak Gradient 3.7 mmHg AV Area Cont Eq pk 5.0 cm MR Peak Velocity 446.0 cm/s MR Peak Gradient 79.6 mmHg Mitral E Point Velocity 103.0 cm/s Mitral A Point Velocity 36.0 cm/s Mitral E to A Ratio 2.9 LV E' Lateral Velocity 8.0 cm/s Mitral E to LV E' Lateral Ratio 12.9 LV E' Septal Velocity 5.5 cm/s Mitral E to LV E' Septal Ratio 18.9 TR Peak Velocity 365.0 cm/s TR Peak Gradient 53.3 mmHg Right Atrial Pressure 10.0 mmHg Pulmonary Artery Systolic Pressu 63.3 mmHg Right Ventricular Systolic Press 63.3 mmHg PV Peak Velocity 88.2 cm/s PV Peak Gradient 3.1 mmHg FINDINGS LEFT VENTRICLE Normal left ventricular size. Wall thickness is normal. The left ventricular systolic function is hyperdynamic with an estimated ejection fraction greater t ferrell 80%. Normal wall motion. RIGHT VENTRICLE The right ventricle is mildly dilated. The right ventricular systoilc function is moderately decreased. LEFT ATRIUM The left atrial size is upper normal. RIGHT ATRIUM The right atrial size is normal. ATRIAL SEPTUM Normal atrial septal thickness without atrial level shunting by limited color doppler interrogation. AORTA The aortic root and proximal ascending aorta are normal in size on limited imaging. MITRAL VALVE Trace mitral valve regurgitation. AORTIC VALVE Trileaflet aortic valve. No aortic valve stenosis or regurgitation. TRICUSPID VALVE There is mild tricuspid regurgitation. The estimated pulmonary arterial pressure is 63 mmHg. PULMONARY VALVE No pulmonary valve regurgitation or stenosis. VESSELS The inferior vena cava is normal in size. PERICARDIUM No pericardial effusion. Jose Cardoso MD (Electronically Signed) Final Date:17 August 2017 10:55 Amended: 17 August 2017 11:14
--- NOTE | 2017-08-17 12:45 | MB ---
cc: YAZAN HARRIS DATE OF CONSULTATION 08/17/2017 REASON FOR CONSULTATION Abnormal troponin level, congestive heart failure, chest pain. HISTORY OF PRESENT ILLNESS The patient is a 62-year-old white male with a history of multiple medical problems including end-stage renal disease, diabetes, hepatitis C, seizure disorder, hypertension who presented to the hospital with a two-day history of increasing shortness of breath. The patient states for the past couple days he has had progressively worsening dyspnea to the point of being short of breath walking across the room. In the last several days, he has had increased pedal edema as well. In the last two days, he has had a "sharp" constant left parasternal chest pain which does increase slightly with deep inspiration. He reports compliance with his medications and a no added salt diet. He denies paroxysmal nocturnal dyspnea, palpitations, lightheadedness, syncope, near-syncope, fevers. PAST MEDICAL HISTORY 1. Hypertension 2. Diabetes complicated by neuropathy, gastroparesis, recurrent foot ulcers. 3. End-stage renal disease on dialysis since May,. 4. Hepatitis C 5. Gastroesophageal reflux disease 6. History of nephrolithiasis. 7. Pancreatitis 2006. 8. Seizure disorder 9. Transient ischemic attack in 2017. PAST SURGICAL HISTORY 1. Lumbar back surgery (diskectomy). 2. History of a number of toe amputations bilaterally. 3. Cholecystectomy 4. Left total hip arthroplasty 01/30/2005. 5. Left total knee arthroplasty 08/21/2005. MEDICATIONS His cardiac medications at home: 1. Metoprolol succinate 50 mg daily 2. Lipitor 20 mg q.h.s. 3. Furosemide 40 mg daily 4. Plavix 75 mg daily 5. Catapres 0.2 mg t.i.d. p.r.n. ALLERGIES NO KNOWN DRUG ALLERGIES. FAMILY HISTORY There is no significant family history of early myocardial infarction. SOCIAL HISTORY The patient denies alcohol or tobacco abuse. REVIEW OF SYSTEMS As in the history of present illness, otherwise negative or noncontributory. He also denies headache, abdominal pain, melena, dyspepsia, bright red blood per rectum. PHYSICAL EXAM VITAL SIGNS: Blood pressure 172/72 with a pulse of 64, respirations 20. GENERAL: He is a well-developed, well-nourished white male in no acute distress. HEENT: Jugular venous pressure is normal. Carotid pulses are 2+ bilaterally and without bruits. CHEST: Examination of the chest reveals diminished breath sounds at the bases. CARDIAC: On cardiac examination, he has a regular rhythm and rate without S3-S4 or murmur. ABDOMEN: On abdominal examination, he has a soft, nontender abdomen. Bowel sounds are present. There is no definite hepatosplenomegaly. EXTREMITIES: Examination of the extremities reveals no clubbing or cyanosis. There is 1+ pretibial edema bilaterally. Chest x-ray shows increased interstitial markings with small bilateral pleural effusions. EKG shows normal sinus rhythm, normal EKG. LABORATORY DATA Includes WBC 10.1, hemoglobin 9.9, platelets 179. Potassium 4.6, BUN 64, creatinine 5.0, troponin 0.08, CK 125, total cholesterol 73, LDL 30, HDL 27, triglycerides 79. IMPRESSION Acute systolic congestive heart failure, atypical chest pain, minimally abnormal troponin levels in this 62-year-old white male with a history of multiple medical problem multiple medical problems including diabetes, end-stage renal disease, hepatitis C, seizure disorder, status post a number of toe amputations primarily for infection. Recent symptoms and chest x-ray findings are consistent with mild congestive heart failure. The precipitating factor is not entirely clear. His echo today is suboptimal, although suggests mildly reduced left ventricular systolic function with ejection fraction estimated at 45% due to global hypokinesis. No severe valvular abnormalities are noted. His chest pain in the last two days is extremely atypical for myocardial ischemia or infarct. Despite constant chest pain for the last 48 hours, CK levels are negative for myocardial infarction. His EKG is normal. He does have a number of risk factors for coronary disease. RECOMMENDATIONS 1. Optimize his medical regimen for congestive heart failure; continue his beta carrie and add an MARIBETH inhibitor. 2. Recommend changing his furosemide to IV administration for now. 3. Check a Lexiscan nuclear stress test to evaluate his atypical chest pains. 4. Better blood pressure control; would make the clonidine a scheduled drug and not p.r.n. 5. Recommend daily aspirin. MD ANTOINE Monroe/ARSLAN /12:08 PM /12:21 PM ISSAC
[2017-08-17] MEDS: ENALAPRIL MALEATE 10 MG TAB PO SCH (13:52)
[2017-08-17] MEDS ORDERED: SODIUM CHLOR 0.9% 1000 ML INJ 1,000 ML IV PRN (14:19)
[2017-08-17] MEDS ORDERED: SODIUM CHLOR 0.9% 1000 ML INJ 1,000 ML OTHER PRN (14:19)
[2017-08-17] MEDS ORDERED: NITROGLYCERIN 0.4 MG SL 25 TABS/BTL SL PRN (14:30)
[2017-08-17] MEDS ORDERED: SODIUM CHLORIDE 0.9% FLUSH 10 ML FLUSH IV FLUSH PRN (14:30)
[2017-08-17] MEDS ORDERED: diphenhydrAMINE HCL 25 MG CAP PO PRN (14:30)
[2017-08-17] MEDS ORDERED: cloNIDine HCL 0.1 MG TAB PO PRN (14:30)
[2017-08-17] MEDS ORDERED: ACETAMINOPHEN 325 MG TAB PO PRN (14:30)
[2017-08-17] MEDS ORDERED: HEPARIN SODIUM - IV 10,000 UNITS/10 ML VIAL IV FLUSH PRN (14:30)
[2017-08-17] MEDS ORDERED: ALBUMIN 25% INJ 100 ML IV PRN (14:30)
[2017-08-17] MEDS ORDERED: ONDANSETRON HCL 4 MG/2 ML VIAL IV PUSH PRN (14:30)
[2017-08-17] MEDS ORDERED: GELATIN 12 MM/7 MM FOAM TOP PRN (14:30)
[2017-08-17] MEDS ORDERED: MANNITOL 12.5 GM/50 ML VIAL IV PRN (14:30)
--- NOTE | 2017-08-17 17:33 | MB ---
cc: FLOYD BARNETT MD DATE OF CONSULTATION 08/17/17 REASON FOR CONSULTATION End-stage renal disease on hemodialysis. HISTORY OF PRESENT ILLNESS This is a very pleasant 62-year-old male known to me from before with history of hypertension, diabetes mellitus, hyperlipidemia, gastroesophageal reflux disease, seizure disorder, end-stage renal disease on hemodialysis three times per week, history of chronic anemia who presented to the hospital with complaint of shortness of breath and chest pain. I was called to see the patient for the management of dialysis. The patient has been on hemodialysis Wednesday, and Wednesday. He had his last dialysis done on Wednesday and he was supposed to go for dialysis yesterday. In the morning, he started having retrosternal chest pain which was continuous, sharp and going towards the epigastrium associated with some shortness of breath. He did not have any nausea or vomiting. The pain was increasing when he was taking deep breaths on coughing. There is no history of fever. No abdominal pain, except the pain in the epigastrium as described, and there is no history of diarrhea. PAST MEDICAL HISTORY 1. Hypertension, 2. Diabetes mellitus, 3. Chronic anemia, 4. Hyperlipidemia, 5. Gastroesophageal reflux disease 6. Seizure disorder 7. End-stage renal disease on hemodialysis. PAST SURGICAL HISTORY 1. Cholecystectomy, 2. Left knee and hip surgery, 3. History of Perma-Cath placement and removal 4. AV fistula surgery. REVIEW OF SYSTEMS The patient denies any history of fever. No sore throat. He has generalized weakness, feeling tired, has shortness of breath more on exertion and has retrosternal chest pain. The pain is continuous and increased with taking a deep breath and coughing. There is no history of the sputum in the cough. He has mild dry cough and pain also is in the epigastric area. There is no history of diarrhea. No nausea or vomiting. The last hemodialysis was done on Wednesday. SOCIAL HISTORY The patient is single. He lives with his mother. There is no history of smoking or alcoholism. FAMILY HISTORY Noncontributory. ALLERGIES NO KNOWN DRUG ALLERGIES. MEDICATIONS Currently 1. Lasix 40 mg IV b.i.d. 2. Neurontin 300 mg b.i.d. 3. Toprol 50 mg once a day. 4. Protonix 40 mg daily. 5. Plavix 75 mg daily. 6. Levemir 34 units subcu daily. 7. Vasotec 10 mg once a day. 8. Lipitor 20 mg q.h.s. 9. Heparin 5000 units subcu 12-hour. 10. Clonidine 0.2 mg q.12 h. 11. Insulin aspart sliding scale. 12. PhosLo 1334 mg t.i.d. 13. Dilantin 100 mg t.i.d. 14. Nitroglycerin sublingual p.r.n. 15. Morphine p.r.n. PHYSICAL EXAMINATION GENERAL: The patient is awake, alert. He is not in acute distress. He is still having this chest pain, which is mainly in the retrosternal area. VITAL SIGNS: His last blood pressure is 152/73, temperature is 97.2, oxygen saturation is 99-100%. HEENT: Pupils are mid constricted. Nonicteric sclerae, conjunctivae pale. NECK: Supple. JVD is not elevated. LUNGS: The patient has bilateral good air entry with some basilar rales and scattered wheezing. HEART: S1, S2, regular rhythm. ABDOMEN: Soft, lax. There is no tenderness, is distended. He has mild tenderness in the upper sternal area, but there is no swelling or redness. EXTREMITIES: He has 1+ edema, more in the left leg. LABORATORY DATA WBC count is 10.1, hemoglobin 9.9, platelet count 179. Sodium 136, potassium 4.6, chloride 102, bicarb 25.9, BUN 64, creatinine 5.0. Calcium 8.5, AST, ALT normal. Trop I 0.06, BNP is 599. Albumin is 3.8. Total protein 7.7, cholesterol 73, LDL is 30, INR is 1.1. Phenytoin level was 0.8. IMAGING STUDIES The patient had a chest x-ray done which shows increased vascular marking and some pulmonary congestion with possibility of some pleural thickening, borderline prominent on the heart size. ASSESSMENT/PLAN 1. Chest pain and shortness of breath, rule out cardiac ischemia. 2. Congestive heart failure, fluid overload status. 3. Hypertension, uncontrolled. 4. End-stage renal disease on hemodialysis. 5. Anemia. 6. History of seizure disorder 7. Diabetes mellitus The patient has some fluid overload status in the chest x-ray and he has edema in the legs. We will try to remove more fluid with the dialysis. He needs to have fluid and salt restriction. This was discussed with the patient. The patient was seen by cardiology and the decision was to optimize his medication for his congestive heart failure. Troponin level is not increasing. The way the pain is, it is most likely musculoskeletal. He was admitted at [facility] and he had a cardia workup done there including a stress test and, as far as I recall, it was negative. Thank you for the consultation. I already arranged for dialysis. He will be dialyzing today later in the evening. MD MARIANA Fernandez/ /4:17 PM /5:06 PM
[2017-08-17] MEDS: FUROSEMIDE 40 MG/4 ML VIAL IV PUSH SCH (18:15)
--- NOTE | 2017-08-17 18:21 | EKG ---
Date Performed: 08/16/2017 Time Performed: 16:37:19 PTAGE: 62 years EKG: Sinus rhythm WITH FIRST DEGREE AV BLOCK MINIMAL ST DEPRESSION When compared to previous tracing, sinus rate is sl ower. ABNORMAL ECG PREVIOUS TRACING : 08/11/2017 15.28 DOCTOR: Jaden Villarreal Interpretating Date/Time 08/17/2017 18:20:24
--- NOTE | 2017-08-17 18:21 | EKG ---
Date Performed: 08/17/2017 Time Performed: 08:43:00 PTAGE: 62 years EKG: Sinus rhythm WITH FIRST DEGREE AV BLOCK MODERATE ST DEPRESSION PROLONGED QT INTERVAL Since previous tracing, no s ignificant change noted ABNORMAL ECG PREVIOUS TRACING : 08/16/2017 16.37 DOCTOR: Jaden Villarreal Interpretating Date/Time 08/17/2017 18:20:33
[2017-08-17] MEDS: GENTAMICIN SULFATE 20 MG/2 ML VIAL OTHER PRN (20:43)
[2017-08-17] MEDS: HEPARIN SODIUM - IV 10,000 UNITS/10 ML VIAL PRN (20:43)
[2017-08-17] MEDS: EPOETIN ALFA 10,000 UNITS/ML VIAL IV PUSH PRN (20:44)
[2017-08-17] MEDS: ATORVASTATIN 20 MG TAB PO SCH (21:36)
[2017-08-17] MEDS: cloNIDine HCL 0.2 MG TAB PO SCH (21:36)
[2017-08-18] VITALS (13 sets, daily range): BP systolic 107–135; BP diastolic 52–69; PULSE 54–62; RESP 12–30; TEMP 97.5–97.8; O2SAT 99–100
[2017-08-18] MEDS: MORPHINE SULFATE 2 MG/ML INJ IV PUSH PRN ×5 (02:24→19:57)
[2017-08-18 08:34] LABS: AUTOMATED NEUTROPHIL # 5.7 TH/MM3 (1.8-7.7); BASOPHIL % 0.6 % (0.0-2.0); EOSINOPHIL # 0.3 TH/MM3 (0-0.4); EOSINOPHIL % 3.9 % (0.0-4.0); HEMATOCRIT 26.3 % (39.0-51.0); LYMPH % 16.7 % (9.0-44.0); LYMPHOCYTE # 1.3 TH/MM3 (1.0-4.8); MEAN CELL VOLUME 92.5 FL (80.0-100.0); MEAN CORPUSCULAR HEMOGLOBIN 31.5 PG (27.0-34.0); MEAN PLATELET VOLUME 7.8 FL (7.0-11.0); MONO % 8.3 % (0.0-8.0); MONOCYTE # 0.7 TH/MM3 (0-0.9); NEUT % 70.5 % (16.0-70.0); PLATELET COUNT 131 TH/MM3 (150-450); RED BLOOD COUNT 2.85 MIL/MM3 (4.50-5.90); RED CELL DISTRIBUTION WIDTH 15.9 % (11.6-17.2)
[2017-08-18 08:40] LABS: CALCIUM 7.9 MG/DL (8.5-10.1)
[2017-08-18] MEDS: INSULIN DETEMIR 100 UNITS/ML VIAL SQ SCH (08:40)
[2017-08-18] MEDS: FUROSEMIDE 40 MG/4 ML VIAL IV PUSH SCH ×2 (08:40→18:15)
[2017-08-18] MEDS: HEPARIN SODIUM - SQ 10,000 UNITS/ML VIAL SQ SCH ×2 (08:41→21:44)
[2017-08-18] MEDS: cloNIDine HCL 0.2 MG TAB PO SCH ×2 (08:41→21:43)
[2017-08-18] MEDS: GABAPENTIN 300 MG CAP PO SCH ×2 (08:41→21:43)
[2017-08-18] MEDS: CALCIUM ACETATE 667 MG CAP PO SCH ×3 (08:41→18:15)
[2017-08-18] MEDS: METOPROLOL SUCCINATE 50 MG EXTENDED RELEASE TAB PO SCH (08:42)
[2017-08-18] MEDS: CLOPIDOGREL 75 MG TAB PO SCH (08:42)
[2017-08-18] MEDS: ENALAPRIL MALEATE 10 MG TAB PO SCH (08:42)
[2017-08-18] MEDS: PANTOPRAZOLE SOD 40 MG DELAYED RELEASE TAB PO SCH (08:42)
[2017-08-18] MEDS: PHENYTOIN SODIUM 100 MG CAP PO SCH ×3 (08:42→18:15)
[2017-08-18] MEDS: COLLAGENASE OINT 30 GM TUBE TOPICAL SCH (08:43)
[2017-08-18 08:44] LABS: CREATININE 4.8 MG/DL (0.60-1.30)
[2017-08-18] MEDS ORDERED: REGADENOSON INJ 0.4 MG/5 ML SYR IV ONE (09:11)
--- NOTE | 2017-08-18 09:28 | HHI.PR ---
Subjective Remarks Patient seen and examined today for follow-up on fluid overload, possible underlying congestive heart failure, possible non-ST elevated myocardial infarction. Patient indicates that his respiratory status has not improved despite 6 L of fluid taken off of him during dialysis yesterday. Patient not indicate any chest discomfort at this time. Vital signs are stable, afebrile. Objective Vitals Vital Signs Date Time Temp Pulse Resp B/P (MAP) Pulse Ox O2 Delivery O2 Flow Rate FiO2 08/18/17 08:20 100 Nasal Cannula 2.00 08/18/17 06:22 18 08/18/17 04:05 97.8 56 12 123/58 (79) 100 08/18/17 04:00 56 08/18/17 02:32 58 17 108/62 (77) 99 08/18/17 00:41 62 16 135/63 (87) 100 08/18/17 00:00 59 08/17/17 22:21 60 22 117/59 (78) 100 08/17/17 22:00 58 15 147/67 (93) 100 08/17/17 21:00 58 17 156/73 (100) 100 08/17/17 20:45 58 15 151/66 (94) 100 08/17/17 20:30 58 13 160/70 (100) 100 08/17/17 20:15 58 13 144/66 (92) 100 08/17/17 20:00 58 15 148/72 (97) 100 08/17/17 20:00 56 08/17/17 19:45 62 20 161/87 (111) 97 08/17/17 19:40 100 Nasal Cannula 2.00 08/17/17 19:30 58 13 160/77 (104) 100 08/17/17 19:15 58 14 148/72 (97) 100 08/17/17 19:00 56 13 159/79 (105) 100 08/17/17 17:27 100 Nasal Cannula 2.00 08/17/17 16:04 60 14 100 08/17/17 16:00 79 08/17/17 15:02 60 14 152/73 (99) 99 08/17/17 15:02 60 14 152/73 (99) 99 08/17/17 12:02 62 20 158/74 (102) 08/17/17 12:00 89 08/17/17 10:17 21 08/17/17 10:16 64 24 172/72 (105) 08/17/17 10:14 68 30 174/88 (116) 08/17/17 09:59 62 23 184/88 (120) I/O 08/17/17 08/17/17 08/17/17 08/18/17 08/18/17 08/18/17 07:00 15:00 23:00 07:00 15:00 23:00 Intake Total 400 ml 100 ml 0 ml Output Total 150 ml 320 ml 6000 ml Balance -150 ml 80 ml -5900 ml 0 ml Intake Oral 400 ml 100 ml 0 ml Output Urine Total 150 ml 320 ml Hemodialysis 6000 ml Result Diagram: 08/18/1773908/18/1740 Objective Remarks GENERAL: Well-developed, well-nourished, in no acute distress. alert and orientated HEENT: Head is normocephalic without any lesions or masses noted. Facial features are symmetric. Eyes: Extraocular muscles are intact. Conjunctivae were clear. NECK: Supple without any masses. Trachea midline no deviation. No JVD, right permacath noted CARDIAC: Regular rhythm, regular rate. S1/S2 are heard. No murmurs gallops or rubs. LUNGS: Clear to auscultation bilaterally. No wheeze, rhonchi or rales. No use of accessory muscles on inspiration or expiration. ABDOMEN: Soft, nontender. Nondistended. Bowel sounds heard in all 4 quadrants. No organomegaly or masses. Negative rebound, negative guarding EXTREMITIES: No edema, pulses are equal bilaterally. No cyanosis or clubbing. Mild erythema noted in the right lower extremity NEUROLOGY: Mood and affect appear appropriate. Cranial nerves II through XII grossly intact. Moving all extremities, speech is clear Urinary Catheter: No Vascular Central Line Catheter: No A/P Assessment and Plan Chest pain, atypical with elevated troponin I Equivocal troponin elevation which remained flat. Unlikely significant. Could be secondary to renal failure Cardiology consulted and made recommendations It has been indicated that could be musculoskeletal in nature Awaiting completion of myocardial perfusion study to rule out any underlying ischemia Maximize medical treatment: Patient is on metoprolol, Nitropaste, MARIBETH inhibitor, morphine, statin, oxygen Fluid overload, etiologies would include congestive heart failure, renal failure , outpatient noncompliance he Echocardiogram ejection fraction greater than 80%, hyperdynamic systolic function, PA peak pressure 63mmhg Patient with appropriate management with beta carrie, MARIBETH inhibitor, diuretic Monitor strict input and output Patient has 6 L of fluid taken off during dialysis yesterday Cardiology recommending maximizing medical management Nephrology indicating patient needs to year to stricter fluid intake and salt intake End-stage renal disease on hemodialysis Patient gets dialysis Wednesday//Wednesday Nephrology consulted for management Diabetes Continue Levemir Accu-Cheks with sliding scale insulin Diabetic diet Hypertension Home medications were continued Blood pressure stable this time History of seizures Dilantin continued DVT prevention subcutaneous heparin Walter Cook Aug 18, 2017 09:28
[2017-08-18 10:26] LABS: HEPATITIS A AB IGM NEGATIVE (NEGATIVE); HEPATITIS B CORE AB IGM NEGATIVE (NEGATIVE); HEPATITIS B SURFACE ANTIGEN NEGATIVE (NEGATIVE); HEPATITIS C AB IgG NEGATIVE (NEGATIVE)
[2017-08-18] MEDS: INSULIN ASPART SUPPLEMENTAL SCALE SQ SCH ×4 (11:03→21:52)
--- NOTE | 2017-08-18 12:56 | PD.CARD.PN ---
Subjective Subjective Remarks Still w/ atypical chest pain, subjective slurred speech, LE edema Objective Medications Current Medications Medications (Trade) Dose Ordered Sig/[place] Route Start Time Stop Time Status Last Admin (NS Flush) 2 ml UNSCH PRN IVF 08/16/17 17:00 (Lipitor) 20 mg HS PO 08/16/17 21:00 08/17/17 21:36 (Neurontin) 300 mg BID PO 08/16/17 21:00 08/18/17 08:41 (Toprol Xl) 50 mg DAILY PO 08/17/17 09:00 08/18/17 08:42 (Nitrostat Sl) 0.4 mg Q5M PRN SL 08/16/17 21:30 08/17/17 10:12 (D50w (Vial) Inj) 50 ml UNSCH PRN IV PUSH 08/17/17 07:45 (Glucagon Inj) 1 mg UNSCH PRN OTHER 08/17/17 07:45 (NovoLOG SUPPLEMENTAL SCALE) 1 ACHS SLIDING SCALE SQ 08/17/17 08:00 08/18/17 12:30 (Morphine Inj) 2 mg Q4H PRN IV PUSH 08/17/17 08:30 08/18/17 10:57 (Protonix) 40 mg DAILY PO 08/17/17 09:00 08/18/17 08:42 (Phoslo) 1,334 mg TID PO 08/17/17 09:00 08/18/17 12:31 (Plavix) 75 mg DAILY PO 08/17/17 09:00 08/18/17 08:42 (Santyl Oint) 1 applic DAILY TOPICAL 08/17/17 09:00 08/18/17 08:43 (Levemir Inj) 34 units DAILY SQ 08/17/17 09:00 08/18/17 08:40 (Dilantin) 100 mg TID PO 08/17/17 09:00 08/18/17 12:31 (Heparin Inj) 5,000 units Q12HR SQ 08/17/17 09:00 08/18/17 08:41 (Lasix Inj) 40 mg BID@,18 IV PUSH 08/17/17 18:00 08/18/17 08:40 (Vasotec) 10 mg DAILY PO 08/17/17 12:30 08/18/17 08:42 (Catapres) 0.2 mg Q12HR PO 08/17/17 21:00 08/18/17 08:41 Sodium Chloride 1,000 ml @ 0 mls/hr Q0M PRN OTHER 08/17/17 14:19 (Heparin Inj) 8,000 units UNSCH PRN IV FLUSH 08/17/17 14:30 Sodium Chloride 1,000 ml @ 200 mls/hr Q5H PRN IV 08/17/17 14:19 Sodium Chloride 1,000 ml @ 0 mls/hr Q0M PRN OTHER 08/17/17 14:19 (Mannitol Inj) 12.5 gm UNSCH PRN IV 08/17/17 14:30 Albumin Human 100 ml @ 60 mls/hr UNSCH PRN IV 08/17/17 14:30 (NS Flush) 5 ml UNSCH PRN IV FLUSH 08/17/17 14:30 (Heparin Inj) UNSCH PRN .XX 08/17/17 14:30 08/17/17 20:43 (Gentamicin Inj) 20 mg UNSCH PRN OTHER 08/17/17 14:30 08/17/17 20:43 (Zofran Inj) 4 mg UNSCH PRN IV PUSH 08/17/17 14:30 (Tylenol) 650 mg UNSCH PRN PO 08/17/17 14:30 (Benadryl) 25 mg UNSCH PRN PO 08/17/17 14:30 (Nitrostat Sl) 0.4 mg UNSCH PRN SL 08/17/17 14:30 (Catapres) 0.1 mg UNSCH PRN PO 08/17/17 14:30 (Epogen Inj) 6,000 units UNSCH PRN IV PUSH 08/17/17 14:30 08/17/17 20:44 (Gelfoam 12 Mm/7 Mm Top) 1 foam UNSCH PRN TOP 08/17/17 14:30 Vital Signs / I&O Vital Signs Date Time Temp Pulse Resp B/P (MAP) Pulse Ox O2 Delivery O2 Flow Rate FiO2 08/18/17 08:20 100 Nasal Cannula 2.00 08/18/17 06:22 18 08/18/17 04:05 97.8 56 12 123/58 (79) 100 08/18/17 04:00 56 08/18/17 02:32 58 17 108/62 (77) 99 08/18/17 00:41 62 16 135/63 (87) 100 08/18/17 00:00 59 08/17/17 22:21 60 22 117/59 (78) 100 08/17/17 22:00 58 15 147/67 (93) 100 08/17/17 21:00 58 17 156/73 (100) 100 08/17/17 20:45 58 15 151/66 (94) 100 08/17/17 20:30 58 13 160/70 (100) 100 08/17/17 20:15 58 13 144/66 (92) 100 08/17/17 20:00 58 15 148/72 (97) 100 08/17/17 20:00 56 08/17/17 19:45 62 20 161/87 (111) 97 08/17/17 19:40 100 Nasal Cannula 2.00 08/17/17 19:30 58 13 160/77 (104) 100 08/17/17 19:15 58 14 148/72 (97) 100 08/17/17 19:00 56 13 159/79 (105) 100 08/17/17 17:27 100 Nasal Cannula 2.00 08/17/17 16:04 60 14 100 08/17/17 16:00 79 08/17/17 15:02 60 14 152/73 (99) 99 08/17/17 15:02 60 14 152/73 (99) 99 I/O 08/17/17 08/17/17 08/17/17 08/18/17 08/18/17 08/18/17 07:00 15:00 23:00 07:00 15:00 23:00 Intake Total 400 ml 100 ml 0 ml Output Total 150 ml 320 ml 6000 ml Balance -150 ml 80 ml -5900 ml 0 ml Intake Oral 400 ml 100 ml 0 ml Output Urine Total 150 ml 320 ml Hemodialysis 6000 ml Physical Exam GENERAL: This is a well-nourished, well-developed patient, in no apparent distress. CARDIOVASCULAR: Regular rate and rhythm without murmurs, gallops, or rubs. RESPIRATORY: Clear to auscultation. Breath sounds equal bilaterally. No wheezes , rales, or rhonchi. GASTROINTESTINAL: Abdomen soft, non-tender, nondistended. Normal active bowel sounds MUSCULOSKELETAL: 1+ edema NEURO: Alert & Oriented x4 to person, place, time, situation. Moves all ext x4 Laboratory Laboratory Tests Test 08/17/17 19:00 08/18/17 07:40 Hepatitis A IgM Antibody NEGATIVE Hepatitis B Surface Antigen NEGATIVE Hepatitis B Core IgM Antibody NEGATIVE Hepatitis C Antibody NEGATIVE White Blood Count 8.0 TH/MM3 Red Blood Count 2.85 MIL/MM3 Hemoglobin 9.0 GM/DL Hematocrit 26.3 % Mean Corpuscular Volume 92.5 FL Mean Corpuscular Hemoglobin 31.5 PG Mean Corpuscular Hemoglobin Concent 34.0 % Red Cell Distribution Width 15.9 % Platelet Count 131 TH/MM3 Mean Platelet Volume 7.8 FL Neutrophils (%) (Auto) 70.5 % Lymphocytes (%) (Auto) 16.7 % Monocytes (%) (Auto) 8.3 % Eosinophils (%) (Auto) 3.9 % Basophils (%) (Auto) 0.6 % Neutrophils # (Auto) 5.7 TH/MM3 Lymphocytes # (Auto) 1.3 TH/MM3 Monocytes # (Auto) 0.7 TH/MM3 Eosinophils # (Auto) 0.3 TH/MM3 Basophils # (Auto) 0.0 TH/MM3 CBC Comment DIFF FINAL Differential Comment Blood Urea Nitrogen 61 MG/DL Creatinine 4.80 MG/DL Random Glucose 233 MG/DL Calcium Level 7.9 MG/DL Sodium Level 138 MEQ/L Potassium Level 4.3 MEQ/L Chloride Level 101 MEQ/L Carbon Dioxide Level 29.0 MEQ/L Anion Gap 8 MEQ/L Estimat Glomerular Filtration Rate 12 ML/MIN Imaging Last Impressions Chest X-Ray 08/16/17 1650 Signed Impressions: Service Date/Time: Wednesday, August 16, 2017 17:05 - CONCLUSION: 1. Worsening interstitial prominence with possible developing small pleural effusions characteristic of some degree of vascular congestion or volume overload. 2. Stable borderline prominent heart size. 3. Stable position of right IJ dialysis type catheter. Bennett Magallanes MD Assessment and Plan Problem List: (1) Fluid overload ICD Codes: E87.70 - Fluid overload, unspecified Plan: On IV lasix, also on HD (2) Back pain, chronic ICD Codes: G89.29 - Other chronic pain; M54.9 - Back pain, chronic Status: Acute (3) ESRD (end stage renal disease) on dialysis ICD Codes: N18.6 - End stage renal disease; Z99.2 - Dependence on renal dialysis (4) Elevated troponin I level ICD Codes: R74.8 - Abnormal levels of other serum enzymes Plan: nonspecific, for nuc stress (5) Atypical chest pain ICD Codes: R07.89 - Other chest pain Plan: for nuclear stress Assessment and Plan Slurred speech; will defer to medical team as to whether neurology or neuroimaging required. Jaden Villarreal MD Aug 18, 2017 12:55
--- NOTE | 2017-08-18 21:27 | HHI.NPPN ---
Subjective History of Present Illness 62-year-old male known to me from before with history of hypertension, diabetes mellitus, hyperlipidemia, gastroesophageal reflux disease, seizure disorder, end-stage renal disease on hemodialysis three times per week, history of chronic anemia who presented to the hospital with complaint of shortness of breath and chest pain. I was called to see the patient for the management of dialysis. Additional Remarks Patient seen in the afternoon, breathing is better, still has chest pain, no nausea. Objective Data Data 08/18/17 08/19/17 19:00 07:00 Intake Total 480 ml Output Total 150 ml Balance 330 ml Intake Oral 480 ml Output Urine Total 150 ml # Bowel Movements 0 Vital Signs Date Time Temp Pulse Resp B/P (MAP) Pulse Ox O2 Delivery O2 Flow Rate FiO2 08/18/17 20:31 100 Nasal Cannula 2.00 08/18/17 20:00 97.7 54 13 119/55 (76) 100 08/18/17 16:00 54 08/18/17 16:00 97.5 58 30 120/60 (80) 100 08/18/17 12:00 97.8 56 17 107/52 (70) 99 08/18/17 12:00 58 08/18/17 08:20 100 Nasal Cannula 2.00 08/18/17 08:00 56 18 127/69 (88) 100 08/18/17 08:00 54 08/18/17 06:22 18 08/18/17 04:05 97.8 56 12 123/58 (79) 100 08/18/17 04:00 56 08/18/17 02:32 58 17 108/62 (77) 99 08/18/17 00:41 62 16 135/63 (87) 100 08/18/17 00:00 59 08/17/17 22:21 60 22 117/59 (78) 100 08/17/17 22:00 58 15 147/67 (93) 100 -: 08/18/17 0740 08/18/17 0740 Physical Exam General Appearance: No Acute Distress, Comfortable Eyes Eye Exam: Pupils Equal Throat Throat Exam: Oral Mucosa [place] & Moist Pulmonary Resp Exam: Breath Sounds Equal, No Distress, Rhonchi, Decreased Bases Cardiology CV Exam: Regular, Normal Sinus Rhythm Gastrointestinal/Abdomen GI Exam: Soft, Non-Tender, Bowel Sounds Present Extremeties Extremities Exam: Moderate Edema Neurologic Neuro Exam: Alert, Awake, Oriented Psychiatric Psych Exam: Appropriate Responses Assessment/Plan Assessment Summary: Anemia of CKD, Fluid/Volume Overload, Hypertension, End Stage Renal Disease Problem List: (1) Anemia ICD Codes: D64.9 - Anemia Status: Acute (2) Anxiety ICD Codes: F41.9 - Anxiety Status: Acute (3) Diabetes ICD Codes: E11.9 - Diabetes Status: Chronic (4) Elevated troponin I level ICD Codes: R74.8 - Abnormal levels of other serum enzymes (5) Atypical chest pain ICD Codes: R07.89 - Other chest pain (6) ESRD (end stage renal disease) on dialysis ICD Codes: N18.6 - End stage renal disease; Z99.2 - Dependence on renal dialysis Plan Patient with End stage renal disease. Was admitted with SOB and chest pain. Patient is feeling better after the Dialysis. Most likely has atypical chest pain, Cardiology following. Epogen with HD. HD again in AM, he is on HD , TTS. Check Po4 level in AM. Caroline Alvarado MD Aug 18, 2017 21:27
[2017-08-18] MEDS: ATORVASTATIN 20 MG TAB PO SCH (21:43)
[2017-08-19] VITALS (10 sets, daily range): BP systolic 107–159; BP diastolic 55–71; PULSE 52–63; RESP 9–20; TEMP 97.2–98; O2SAT 94–100
[2017-08-19] MEDS: MORPHINE SULFATE 2 MG/ML INJ IV PUSH PRN ×6 (00:38→22:34)
[2017-08-19] MEDS: CLOPIDOGREL 75 MG TAB PO SCH (08:11)
[2017-08-19] MEDS: PHENYTOIN SODIUM 100 MG CAP PO SCH ×3 (08:11→17:49)
[2017-08-19] MEDS: GABAPENTIN 300 MG CAP PO SCH ×2 (08:12→21:32)
[2017-08-19] MEDS: COLLAGENASE OINT 30 GM TUBE TOPICAL SCH (08:12)
[2017-08-19] MEDS: CALCIUM ACETATE 667 MG CAP PO SCH ×3 (08:12→17:49)
[2017-08-19] MEDS: FUROSEMIDE 40 MG/4 ML VIAL IV PUSH SCH ×2 (08:12→17:49)
[2017-08-19] MEDS: HEPARIN SODIUM - SQ 10,000 UNITS/ML VIAL SQ SCH ×2 (08:12→21:31)
[2017-08-19] MEDS: PANTOPRAZOLE SOD 40 MG DELAYED RELEASE TAB PO SCH (08:12)
[2017-08-19] MEDS: ENALAPRIL MALEATE 10 MG TAB PO SCH (08:28)
[2017-08-19] MEDS: cloNIDine HCL 0.2 MG TAB PO SCH ×2 (08:28→21:31)
[2017-08-19] MEDS: METOPROLOL SUCCINATE 50 MG EXTENDED RELEASE TAB PO SCH (08:29)
[2017-08-19] MEDS: INSULIN ASPART SUPPLEMENTAL SCALE SQ SCH ×4 (08:41→22:34)
[2017-08-19] MEDS: INSULIN DETEMIR 100 UNITS/ML VIAL SQ SCH (08:41)
--- NOTE | 2017-08-19 09:14 | HHI.PR ---
Subjective Remarks Patient seen and examined today for follow-up on fluid overload, chest pain. Patient resting comfortably in bed. Denies any new complaints. Awaiting completion of stress test area patient is to have dialysis today. I discussed with the patient his fluid intake which he indicates that he drinks 5-6 bottles of water daily. I instructed him that that is too much fluid for him to be drinking on a daily basis. He should limit himself to at the most 3 bottles of water daily Objective Vitals Vital Signs Date Time Temp Pulse Resp B/P (MAP) Pulse Ox O2 Delivery O2 Flow Rate FiO2 08/19/17 08:46 25 08/19/17 08:00 54 18 120/59 (79) 08/19/17 08:00 52 08/19/17 07:14 97.2 52 13 109/55 (73) 08/19/17 07:00 52 9 08/19/17 04:36 53 08/19/17 04:00 97.6 54 16 107/55 (72) 98 08/19/17 00:00 98.0 56 16 120/59 (79) 98 08/19/17 00:00 54 08/18/17 22:00 56 08/18/17 21:40 97.8 54 25 112/56 (74) 100 08/18/17 20:31 100 Nasal Cannula 2.00 08/18/17 20:00 56 08/18/17 20:00 97.7 54 13 119/55 (76) 100 08/18/17 16:00 54 08/18/17 16:00 97.5 58 30 120/60 (80) 100 08/18/17 12:00 97.8 56 17 107/52 (70) 99 08/18/17 12:00 58 I/O 08/18/17 08/18/17 08/18/17 08/19/17 08/19/17 08/19/17 07:00 15:00 23:00 07:00 15:00 23:00 Intake Total 0 ml 480 ml 320 ml Output Total 150 ml 0 ml Balance 0 ml 330 ml 320 ml Intake Oral 0 ml 480 ml 320 ml Output Urine Total 150 ml 0 ml # Bowel Movements 0 0 Result Diagram: 08/18/1773908/18/1740 Objective Remarks GENERAL: Well-developed, well-nourished, in no acute distress. alert and orientated HEENT: Head is normocephalic without any lesions or masses noted. Facial features are symmetric. Eyes: Extraocular muscles are intact. Conjunctivae were clear. NECK: Supple without any masses. Trachea midline no deviation. No JVD, right permacath noted CARDIAC: Regular rhythm, regular rate. S1/S2 are heard. No murmurs gallops or rubs. LUNGS: Clear to auscultation bilaterally. No wheeze, rhonchi or rales. No use of accessory muscles on inspiration or expiration. ABDOMEN: Soft, nontender. Nondistended. Bowel sounds heard in all 4 quadrants. No organomegaly or masses. Negative rebound, negative guarding EXTREMITIES: No edema, pulses are equal bilaterally. No cyanosis or clubbing. Mild erythema noted in the right lower extremity NEUROLOGY: Mood and affect appear appropriate. Cranial nerves II through XII grossly intact. Moving all extremities, speech is clear Urinary Catheter: No Vascular Central Line Catheter: No A/P Assessment and Plan Chest pain, atypical with elevated troponin I Equivocal troponin elevation which remained flat. Unlikely significant. Could be secondary to renal failure Cardiology consulted and made recommendations It has been indicated that could be musculoskeletal in nature Myocardial perfusion study was performed which does indicate findings consistent with ischemia in the mid to apical inferior lateral wall, ejection fraction 42%, with high risk Maximize medical treatment: Patient is on metoprolol, Nitropaste, MARIBETH inhibitor, morphine, statin, oxygen Cardiology is transferring patient to the main to perform cardiac cath Fluid overload, etiologies would include congestive heart failure, renal failure , outpatient noncompliance he Echocardiogram ejection fraction greater than 80%, hyperdynamic systolic function, PA peak pressure 63mmhg Patient with appropriate management with beta carrie, MARIBETH inhibitor, diuretic Monitor strict input and output Patient has 6 L of fluid taken off during dialysis Cardiology recommending maximizing medical management Nephrology indicating patient needs to year to stricter fluid intake and salt intake Discussed with the patient his fluid intake should be at the most 3 bottles of water daily End-stage renal disease on hemodialysis Patient gets dialysis Wednesday//Wednesday Nephrology consulted for management Diabetes Continue Levemir Accu-Cheks with sliding scale insulin Diabetic diet Hypertension Home medications were continued Blood pressure stable this time History of seizures Dilantin continued DVT prevention subcutaneous heparin Discharge Planning Discharge home with home health care once cleared by cardiology Walter Cook Aug 19, 2017 09:14
--- NOTE | 2017-08-19 11:47 | HHI.NPPN ---
Subjective History of Present Illness 62-year-old male known to me from before with history of hypertension, diabetes mellitus, hyperlipidemia, gastroesophageal reflux disease, seizure disorder, end-stage renal disease on hemodialysis three times per week, history of chronic anemia who presented to the hospital with complaint of shortness of breath and chest pain. I was called to see the patient for the management of dialysis. Additional Remarks Patient is alert,breathing is better, still has chest pain and back pain. Objective Data Data Vital Signs Date Time Temp Pulse Resp B/P (MAP) Pulse Ox O2 Delivery O2 Flow Rate FiO2 08/19/17 08:46 25 08/19/17 08:00 96 Nasal Cannula 2.00 08/19/17 08:00 54 18 120/59 (79) 08/19/17 08:00 52 08/19/17 07:14 97.2 52 13 109/55 (73) 08/19/17 07:00 52 9 08/19/17 04:36 53 08/19/17 04:00 97.6 54 16 107/55 (72) 98 08/19/17 00:00 98.0 56 16 120/59 (79) 98 08/19/17 00:00 54 08/18/17 22:00 56 08/18/17 21:40 97.8 54 25 112/56 (74) 100 08/18/17 20:31 100 Nasal Cannula 2.00 08/18/17 20:00 56 08/18/17 20:00 97.7 54 13 119/55 (76) 100 08/18/17 16:00 54 08/18/17 16:00 97.5 58 30 120/60 (80) 100 08/18/17 12:00 97.8 56 17 107/52 (70) 99 08/18/17 12:00 58 -: 08/18/17 0740 08/18/17 0740 Physical Exam General Appearance: No Acute Distress, Comfortable Eyes Eye Exam: Pupils Equal Throat Throat Exam: Oral Mucosa [place] & Moist Pulmonary Resp Exam: Breath Sounds Equal, No Distress, Rhonchi, Decreased Bases Cardiology CV Exam: Regular, Normal Sinus Rhythm Gastrointestinal/Abdomen GI Exam: Soft, Non-Tender, Bowel Sounds Present Extremeties Extremities Exam: Moderate Edema Neurologic Neuro Exam: Alert, Awake, Oriented Psychiatric Psych Exam: Appropriate Responses Assessment/Plan Assessment Summary: Anemia of CKD, Fluid/Volume Overload, Hypertension, End Stage Renal Disease Problem List: (1) Anemia ICD Codes: D64.9 - Anemia Status: Acute (2) Anxiety ICD Codes: F41.9 - Anxiety Status: Acute (3) Diabetes ICD Codes: E11.9 - Diabetes Status: Chronic (4) Elevated troponin I level ICD Codes: R74.8 - Abnormal levels of other serum enzymes (5) Atypical chest pain ICD Codes: R07.89 - Other chest pain (6) ESRD (end stage renal disease) on dialysis ICD Codes: N18.6 - End stage renal disease; Z99.2 - Dependence on renal dialysis Plan Patient with End stage renal disease. Was admitted with SOB and chest pain. Patient is feeling better after the Dialysis. Most likely has atypical chest pain, Cardiology following. Epogen with HD. HD today, Po4 is 6.0, on Phoslo. Caroline Alvarado MD Aug 19, 2017 11:47
--- NOTE | 2017-08-19 12:07 | PD.CARD.PN ---
Subjective Subjective Remarks Still w/ continuous atypical chest pain, though he appears quite comfortable Objective Medications Current Medications Medications (Trade) Dose Ordered Sig/[place] Route Start Time Stop Time Status Last Admin (NS Flush) 2 ml UNSCH PRN IVF 08/16/17 17:00 08/19/17 00:38 (Lipitor) 20 mg HS PO 08/16/17 21:00 08/18/17 21:43 (Neurontin) 300 mg BID PO 08/16/17 21:00 08/19/17 08:12 (Toprol Xl) 50 mg DAILY PO 08/17/17 09:00 08/18/17 08:42 (Nitrostat Sl) 0.4 mg Q5M PRN SL 08/16/17 21:30 08/17/17 10:12 (D50w (Vial) Inj) 50 ml UNSCH PRN IV PUSH 08/17/17 07:45 (Glucagon Inj) 1 mg UNSCH PRN OTHER 08/17/17 07:45 (NovoLOG SUPPLEMENTAL SCALE) 1 ACHS SLIDING SCALE SQ 08/17/17 08:00 08/19/17 08:41 (Morphine Inj) 2 mg Q4H PRN IV PUSH 08/17/17 08:30 08/19/17 08:41 (Protonix) 40 mg DAILY PO 08/17/17 09:00 08/19/17 08:12 (Phoslo) 1,334 mg TID PO 08/17/17 09:00 08/19/17 08:12 (Plavix) 75 mg DAILY PO 08/17/17 09:00 08/19/17 08:11 (Santyl Oint) 1 applic DAILY TOPICAL 08/17/17 09:00 08/19/17 08:12 (Levemir Inj) 34 units DAILY SQ 08/17/17 09:00 08/19/17 08:41 (Dilantin) 100 mg TID PO 08/17/17 09:00 08/19/17 08:11 (Heparin Inj) 5,000 units Q12HR SQ 08/17/17 09:00 08/19/17 08:12 (Lasix Inj) 40 mg BID@18 IV PUSH 08/17/17 18:00 08/19/17 08:12 (Vasotec) 10 mg DAILY PO 08/17/17 12:30 08/18/17 08:42 (Catapres) 0.2 mg Q12HR PO 08/17/17 21:00 08/18/17 21:43 Sodium Chloride 1,000 ml @ 0 mls/hr Q0M PRN OTHER 08/17/17 14:19 (Heparin Inj) 8,000 units UNSCH PRN IV FLUSH 08/17/17 14:30 Sodium Chloride 1,000 ml @ 200 mls/hr Q5H PRN IV 08/17/17 14:19 Sodium Chloride 1,000 ml @ 0 mls/hr Q0M PRN OTHER 08/17/17 14:19 (Mannitol Inj) 12.5 gm UNSCH PRN IV 08/17/17 14:30 Albumin Human 100 ml @ 60 mls/hr UNSCH PRN IV 08/17/17 14:30 (NS Flush) 5 ml UNSCH PRN IV FLUSH 08/17/17 14:30 (Heparin Inj) UNSCH PRN .XX 08/17/17 14:30 08/17/17 20:43 (Gentamicin Inj) 20 mg UNSCH PRN OTHER 08/17/17 14:30 08/17/17 20:43 (Zofran Inj) 4 mg UNSCH PRN IV PUSH 08/17/17 14:30 (Tylenol) 650 mg UNSCH PRN PO 08/17/17 14:30 (Benadryl) 25 mg UNSCH PRN PO 08/17/17 14:30 (Nitrostat Sl) 0.4 mg UNSCH PRN SL 08/17/17 14:30 (Catapres) 0.1 mg UNSCH PRN PO 08/17/17 14:30 (Epogen Inj) 6,000 units UNSCH PRN IV PUSH 08/17/17 14:30 08/17/17 20:44 (Gelfoam 12 Mm/7 Mm Top) 1 foam UNSCH PRN TOP 08/17/17 14:30 Vital Signs / I&O Vital Signs Date Time Temp Pulse Resp B/P (MAP) Pulse Ox O2 Delivery O2 Flow Rate FiO2 08/19/17 08:46 25 08/19/17 08:00 96 Nasal Cannula 2.00 08/19/17 08:00 54 18 120/59 (79) 08/19/17 08:00 52 08/19/17 07:14 97.2 52 13 109/55 (73) 08/19/17 07:00 52 9 08/19/17 04:36 53 08/19/17 04:00 97.6 54 16 107/55 (72) 98 08/19/17 00:00 98.0 56 16 120/59 (79) 98 08/19/17 00:00 54 08/18/17 22:00 56 08/18/17 21:40 97.8 54 25 112/56 (74) 100 08/18/17 20:31 100 Nasal Cannula 2.00 08/18/17 20:00 56 08/18/17 20:00 97.7 54 13 119/55 (76) 100 08/18/17 16:00 54 08/18/17 16:00 97.5 58 30 120/60 (80) 100 I/O 08/18/17 08/18/17 08/18/17 08/19/17 08/19/17 08/19/17 07:00 15:00 23:00 07:00 15:00 23:00 Intake Total 0 ml 480 ml 320 ml Output Total 150 ml 0 ml Balance 0 ml 330 ml 320 ml Intake Oral 0 ml 480 ml 320 ml Output Urine Total 150 ml 0 ml # Bowel Movements 0 0 Physical Exam GENERAL: This is a well-nourished, well-developed patient, in no apparent distress. CARDIOVASCULAR: Regular rate and rhythm without murmurs, gallops, or rubs. RESPIRATORY: Clear to auscultation. Breath sounds equal bilaterally. No wheezes , rales, or rhonchi. GASTROINTESTINAL: Abdomen soft, non-tender, nondistended. Normal active bowel sounds MUSCULOSKELETAL: 1+ edema NEURO: Alert & Oriented x4 to person, place, time, situation. Moves all ext x4 Laboratory Laboratory Tests Test 08/19/17 04:25 Phosphorus Level 6.0 MG/DL Imaging Last Impressions Chest X-Ray 08/16/17 1650 Signed Impressions: Service Date/Time: Wednesday, August 16, 2017 17:05 - CONCLUSION: 1. Worsening interstitial prominence with possible developing small pleural effusions characteristic of some degree of vascular congestion or volume overload. 2. Stable borderline prominent heart size. 3. Stable position of right IJ dialysis type catheter. Bennett Magallanes MD Assessment and Plan Problem List: (1) Fluid overload ICD Codes: E87.70 - Fluid overload, unspecified Plan: On IV lasix, also on HD; will defer diuretic mgt to nephrology (2) Back pain, chronic ICD Codes: G89.29 - Other chronic pain; M54.9 - Back pain, chronic Status: Acute (3) ESRD (end stage renal disease) on dialysis ICD Codes: N18.6 - End stage renal disease; Z99.2 - Dependence on renal dialysis (4) Elevated troponin I level ICD Codes: R74.8 - Abnormal levels of other serum enzymes Plan: nonspecific (5) Atypical chest pain ICD Codes: R07.89 - Other chest pain Plan: stress results pending Jaden Villarreal MD Aug 19, 2017 12:07
--- NOTE | 2017-08-19 12:09 | RADRPT ---
EXAM DATE/TIME: 08/18/2017 09:32 [facility] COMPARISON: MYOCARDIAL PERF PHARM SPECT, GATED W/EF, January 12, 2014, 10:49. INDICATIONS : Mid chest pain radiating to the back for four days. Angina. DOSE: 30.2 mCi Tc99m Myoview at stress. 30.1 mCi Tc99m Myoview at rest. 0.4 mg Lexiscan STRESS SYMPTOMS: Shortness of breath. EJECTION FRACTION: 42% MEDICAL HISTORY : Gastroesophageal reflux disease. Renal disease, end stage. Diabetes mellitus type 2. SURGICAL HISTORY : Cholecystectomy. ENCOUNTER: Initial ACUITY: 4 - 6 days PAIN SCALE: 10/10 LOCATION: Midsternal chest TECHNIQUE: The patient underwent pharmacologic stress with infusion of prescribed dose. Continuous ECG tracing was monitored during stress. Gated SPECT imaging was performed after stress and conventional SPECT i maging was performed at rest. The examination was performed on a SPECT/CT scanner, both attenuation and non-corrected datasets were reviewed. FINDINGS: DISTRIBUTION: The maximum perfused segment at stress is in the septal wall. PERFUSION STUDY: Stress-induced perfusion defect in the mid to apical lateral inferior wall. Fixed perfusion defect in the inferior lateral wall near the base. GATED STUDY: There is decreased wall motion in the inferior wall near the base. CONCLUSION: 1. Findings consistent with ischemia in the [id number] inferior lateral wall. 2. Findings consistent with prior infarct in the inferior lateral wall near the base. 3. Global hypokinesia with focal wall motion abnormality in the inferior wall near the base and anter ior wall near the apex. EF of 42%. RISK CATEGORY: High (>3% Annual Mortality Rate) Carlos Victoria MD on August 19, 2017 at 12:00 Board Certified Radiologist. This report was verified electronically.
--- NOTE | 2017-08-19 14:30 | HHI.FF ---
Face to Face Verification Diagnosis: (1) Physical deconditioning (2) Diabetes (3) ESRD (end stage renal disease) on dialysis (4) Fluid overload Physical Therapy Order: Evaluate and Treat, Improve ambulation, Strength and gait training Home Health Nursing Order: Medical education Signs/symptoms of disease process CHF education Nursing assessment with vital signs I have seen patient Bautista Fonseca III on 08/19/17. My clinical findings support the need for the requested home health care services because: Ltd mobility - disease progression Deconditioned w/ increased weakness I certify that my clinical findings support that this patient is homebound because: Unsteady gait/balance Walter Cook Aug 19, 2017 14:30
[2017-08-19] MEDS ORDERED: MIDAZOLAM HCL 2 MG/2 ML VIAL IV PUSH SCH (15:30)
[2017-08-19] MEDS ORDERED: diphenhydrAMINE HCL 50 MG CAP PO SCH (15:30)
[2017-08-19] MEDS ORDERED: DIAZEPAM 10 MG TAB PO SCH (15:30)
[2017-08-19] MEDS: EPOETIN ALFA 10,000 UNITS/ML VIAL IV PUSH PRN (16:45)
[2017-08-19] MEDS: GENTAMICIN SULFATE 20 MG/2 ML VIAL OTHER PRN (17:00)
[2017-08-19] MEDS: HEPARIN SODIUM - IV 10,000 UNITS/10 ML VIAL PRN (17:00)
[2017-08-19] MEDS: SODIUM CHLOR 0.9% 1000 ML INJ 1,000 ML OTHER PRN (17:00)
[2017-08-19] MEDS: ATORVASTATIN 20 MG TAB PO SCH (21:32)
[2017-08-20] VITALS (10 sets, daily range): BP systolic 115–148; BP diastolic 55–77; PULSE 54–70; RESP 16–22; TEMP 96.9–98.7; O2SAT 91–99
[2017-08-20] MEDS: MORPHINE SULFATE 2 MG/ML INJ IV PUSH PRN ×4 (02:40→21:01)
[2017-08-20] MEDS: INSULIN ASPART SUPPLEMENTAL SCALE SQ SCH ×4 (08:00→21:00)
[2017-08-20] MEDS: INSULIN DETEMIR 100 UNITS/ML VIAL SQ SCH (09:00)
[2017-08-20] MEDS: FUROSEMIDE 40 MG/4 ML VIAL IV PUSH SCH ×2 (09:18→20:55)
[2017-08-20] MEDS: HEPARIN SODIUM - SQ 10,000 UNITS/ML VIAL SQ SCH ×2 (09:19→21:00)
[2017-08-20] MEDS: GABAPENTIN 300 MG CAP PO SCH ×2 (09:19→21:00)
[2017-08-20] MEDS: cloNIDine HCL 0.2 MG TAB PO SCH ×2 (09:19→21:00)
[2017-08-20] MEDS: ENALAPRIL MALEATE 10 MG TAB PO SCH (09:19)
[2017-08-20] MEDS: PHENYTOIN SODIUM 100 MG CAP PO SCH ×3 (09:19→20:55)
[2017-08-20] MEDS: CALCIUM ACETATE 667 MG CAP PO SCH ×3 (09:19→20:58)
[2017-08-20] MEDS: PANTOPRAZOLE SOD 40 MG DELAYED RELEASE TAB PO SCH (09:19)
[2017-08-20] MEDS: METOPROLOL SUCCINATE 50 MG EXTENDED RELEASE TAB PO SCH (09:19)
[2017-08-20] MEDS: CLOPIDOGREL 75 MG TAB PO SCH (09:19)
[2017-08-20] MEDS: COLLAGENASE OINT 30 GM TUBE TOPICAL SCH (09:20)
--- NOTE | 2017-08-20 11:19 | HHI.PR ---
Subjective Remarks Patient seen and examined today for follow-up on shortness of breath, fluid overload, chest pain. Patient is lying in bed comfortably. Denies drainage any active chest pain this time. I did review results of the nuclear stress test with the patient. We are still awaiting transportation to the main hospital for cardiac catheterization today. Patient did have dialysis again yesterday with another 6 L removed. Objective Vitals Vital Signs Date Time Temp Pulse Resp B/P (MAP) Pulse Ox O2 Delivery O2 Flow Rate FiO2 08/20/17 09:00 18 08/20/17 08:00 96.9 63 20 139/69 (92) 96 08/20/17 04:00 97.7 70 18 148/77 (100) 99 08/20/17 00:00 97.7 70 18 148/77 (100) 99 08/19/17 20:02 100 21 08/19/17 20:00 97.9 63 17 159/71 (100) 100 08/19/17 17:30 97.7 56 20 141/61 (87) 97 08/19/17 11:50 97.6 61 20 119/64 (82) 94 I/O 08/19/17 08/19/17 08/19/17 08/20/17 08/20/17 08/20/17 07:00 15:00 23:00 07:00 15:00 23:00 Intake Total 320 ml 120 ml Output Total 0 ml 650 ml Balance 320 ml 120 ml -650 ml Intake Oral 320 ml 120 ml Output Urine Total 0 ml 650 ml # Voids 25 # Bowel Movements 0 0 Result Diagram: 08/18/17 0740 08/18/17 0740 Objective Remarks GENERAL: Well-developed, well-nourished, in no acute distress. alert and orientated HEENT: Head is normocephalic without any lesions or masses noted. Facial features are symmetric. Eyes: Extraocular muscles are intact. Conjunctivae were clear. NECK: Supple without any masses. Trachea midline no deviation. No JVD, right permacath noted CARDIAC: Regular rhythm, regular rate. S1/S2 are heard. No murmurs gallops or rubs. LUNGS: Clear to auscultation bilaterally. No wheeze, rhonchi or rales. No use of accessory muscles on inspiration or expiration. ABDOMEN: Soft, nontender. Nondistended. Bowel sounds heard in all 4 quadrants. No organomegaly or masses. Negative rebound, negative guarding EXTREMITIES: No edema, pulses are equal bilaterally. No cyanosis or clubbing. Mild erythema noted in the right lower extremity NEUROLOGY: Mood and affect appear appropriate. Cranial nerves II through XII grossly intact. Moving all extremities, speech is clear Urinary Catheter: No Vascular Central Line Catheter: No A/P Assessment and Plan Chest pain, atypical with elevated troponin I Equivocal troponin elevation which remained flat. Unlikely significant. Could be secondary to renal failure Cardiology consulted and made recommendations It has been indicated that could be musculoskeletal in nature Myocardial perfusion study was performed which does indicate findings consistent with ischemia in the mid to apical inferior lateral wall, ejection fraction 42%, with high risk Maximize medical treatment: Patient is on metoprolol, Nitropaste, MARIBETH inhibitor, morphine, statin, oxygen Cardiology transferred the patient to the main for cardiac catheterization today Fluid overload, etiologies would include congestive heart failure, renal failure , outpatient noncompliance he Echocardiogram ejection fraction greater than 80%, hyperdynamic systolic function, PA peak pressure 63mmhg Patient with appropriate management with beta carrie, MARIBETH inhibitor, diuretic Monitor strict input and output Patient has 6 L of fluid taken off during dialysis Cardiology recommending maximizing medical management Nephrology indicating patient needs to year to stricter fluid intake and salt intake Discussed with the patient his fluid intake should be at the most 3 bottles of water daily End-stage renal disease on hemodialysis Patient gets dialysis Wednesday//Wednesday Nephrology consulted for management Diabetes Continue Levemir Accu-Cheks with sliding scale insulin Diabetic diet Hypertension Home medications were continued Blood pressure stable this time History of seizures Dilantin continued DVT prevention subcutaneous heparin Discharge Planning Discharge home with home health care once cleared by cardiology Walter Cook Aug 20, 2017 11:19
--- NOTE | 2017-08-20 15:36 | HHI.NPPN ---
Subjective History of Present Illness 62-year-old male known to me from before with history of hypertension, diabetes mellitus, hyperlipidemia, gastroesophageal reflux disease, seizure disorder, end-stage renal disease on hemodialysis three times per week, history of chronic anemia who presented to the hospital with complaint of shortness of breath and chest pain. I was called to see the patient for the management of dialysis. Additional Remarks Patient is alert,reports SOB, chest pain and back pain. Plans for heart cath today (Christa Velasquez) Review of Systems Respiratory Lungs: SOB (Christa Velasquez) Cardiovascular Cardiac: Chest Pain (Christa Velasquez) Objective Data Data Vital Signs Date Time Temp Pulse Resp B/P (MAP) Pulse Ox O2 Delivery O2 Flow Rate FiO2 08/20/17 15:12 98.0 64 22 115/59 (77) 97 08/20/17 15:01 21 08/20/17 12:29 98.0 60 18 98 08/20/17 09:00 18 08/20/17 08:00 96.9 63 20 139/69 (92) 96 08/20/17 04:00 97.7 70 18 148/77 (100) 99 08/20/17 00:00 97.7 70 18 148/77 (100) 99 08/19/17 20:02 100 21 08/19/17 20:00 97.9 63 17 159/71 (100) 100 08/19/17 17:30 97.7 56 20 141/61 (87) 97 (Christa Velasquez) -: 08/18/17 0740 08/18/17 0740 Imaging Last Impressions Myocardial Perfusion Scan Nuc Med 08/18/17 0000 Signed Impressions: Service Date/Time: Friday, August 18, 2017 09:32 - CONCLUSION: 1. Findings consistent with ischemia in the [id number] inferior lateral wall. 2. Findings consistent with prior infarct in the inferior lateral wall near the base. 3. Global hypokinesia with focal wall motion abnormality in the inferior wall near the base and anterior wall near the apex. EF of 42%%. RISK CATEGORY : High (>3%% Annual Mortality Rate) Carlos Victoria MD Chest X-Ray 08/16/17 1650 Signed Impressions: Service Date/Time: Wednesday, August 16, 2017 17:05 - CONCLUSION: 1. Worsening interstitial prominence with possible developing small pleural effusions characteristic of some degree of vascular congestion or volume overload. 2. Stable borderline prominent heart size. 3. Stable position of right IJ dialysis type catheter. Bennett Magallanes MD (Christa Velasquez) Physical Exam General Appearance: No Acute Distress, Comfortable (Christa Velasquez) Eyes Eye Exam: Pupils Equal (Christa Velasquez) Throat Throat Exam: Oral Mucosa Tobin & Moist (Christa Velasquez) Pulmonary Resp Exam: Breath Sounds Equal, No Distress, Decreased Bases (Christa Velasquez) Cardiology CV Exam: Regular, Normal Sinus Rhythm (Christa Velasquez) Gastrointestinal/Abdomen GI Exam: Soft, Non-Tender, Bowel Sounds Present (Christa Velasquez) Extremeties Extremities Exam: Moderate Edema (Christa Velasquez) Neurologic Neuro Exam: Alert, Awake, Oriented (Christa Velasquez) Psychiatric Psych Exam: Appropriate Responses (Christa Velasquez) Assessment/Plan Assessment Summary: Anemia of CKD, Fluid/Volume Overload, Hypertension, End Stage Renal Disease Problem List: (1) Anemia ICD Codes: D64.9 - Anemia Status: Acute (2) Anxiety ICD Codes: F41.9 - Anxiety Status: Acute (3) Diabetes ICD Codes: E11.9 - Diabetes Status: Chronic (4) Elevated troponin I level ICD Codes: R74.8 - Abnormal levels of other serum enzymes (5) Atypical chest pain ICD Codes: R07.89 - Other chest pain (6) ESRD (end stage renal disease) on dialysis ICD Codes: N18.6 - End stage renal disease; Z99.2 - Dependence on renal dialysis Plan Patient with End stage renal disease. Was admitted with SOB and chest pain. Stress test with ischemia noted Continues to have SOB, CP which radiates to back. Epogen with HD. HD yesterday with 6 liters removed Plans for heart cath today (Christa Velasquez) Plan Patient was seen prior to Cardiac Cath. HD will be in AM. (Caroline Alvarado MD) Christa Velasquez Aug 20, 2017 15:36 Caroline Alvarado MD Aug 20, 2017 20:42
[2017-08-20] MEDS ORDERED: MIDAZOLAM HCL 2 MG/2 ML VIAL ONE (17:13)
[2017-08-20] MEDS ORDERED: STERILE WATER FOR INJECTION 10 ML VIAL ONE (17:37)
[2017-08-20] MEDS ORDERED: BIVALIRUDIN 250 MG VIAL ONE (17:37)
[2017-08-20] MEDS ORDERED: TICAGRELOR 90 MG TAB PO ONE (18:16)
[2017-08-20] MEDS ORDERED: SODIUM CHLORIDE 0.9% FLUSH 10 ML FLUSH IV FLUSH PRN (18:45)
[2017-08-20] MEDS ORDERED: MISC INFORMATION XX ONE (18:45)
--- NOTE | 2017-08-20 18:46 | CATHPROC ---
[facility] HIS Report Study Information Study Number Admission Scheduled Start Study Start [id number] 08/16/2017 08/19/2017 Aug 20 2017 4:48PM Referring Institution Admit Source Facility Department 1 Other [facility] - Manager Flight Physician and Clinical Staff Initial MD Rizo, Ganga Professor Computer Science Starr Dumont,HAMIDA Other cathlab, cathlab Recorder Cyn Diaz,FULL STACK PYTHON DEVELOPER TECH2 Scrub Bettina Horta,RT(R) Procedures Performed Procedure Location (Site) Vessel Name Coronary Angiograms LCA Left Coronary Coronary Angiograms RCA Right Coronary Drug Eluting Inflatio LAD Mid Left Coronary Drug Eluting Inflatio OM1 Mid CIRC Drug Eluting Inflatio RCA Prox Right Coronary LV Gram-hand inj. LV LV Ventricle PTCA OM1 Mid CIRC Wire insertion Fem Art (right) Femoral Art Equipment Time Microfiche Duplicator Description Size Mfg Part Number Used/Scraped WIRE, BALANCE MIDDLEWEIGHT [id number] 17:40 [employer] 190CM Used 190CM *[id number] WIRE, BALANCE MIDDLEWEIGHT [id number] 18:11 [employer] 190CM Used 190CM *[id number] TRANSDUCER, TRUWAVE [id number] 16:57 GRAHAM FARIA * Used W/STOCKCOCK *[id number] 534-676T *[id number] 534-620T *[id number] 534-622T *[id number] [phone] *[id number] PIGTAIL ANG. 145 INFINITI 534-652S CATHETER *[id number] [phone] *[id number] 18:24 DAIG/[employer]. [employer] ANGIOSEAL, FR6 VIP FR 6 Used *[id number] 16:57 MEDLINE INDUSTRIES PACK, CCL CUSTOM * Used *[id number] 16:57 MEDLINE PACER PEN, SKIN DUAL W/ RULER * Used *[id number] 17:46 MEDTRONIC BALLOON, 2.0 X 20MM EUPHORA 20MM Used *9008935 [id number] 17:55 MEDTRONIC BALLOON, 2.5 X 20MM EUPHORA 20MM Used *[id number] 17:52 MEDTRONIC STENT, 2.5 26MM RENE 2.5 26MM Used *[id number] 18:12 MEDTRONIC STENT, 3.5 15MM RENE 3.5 15MM Used *[id number] [id number] 18:07 MEDTRONIC STENT, 3.5 18MM RENE 3.5 18MM Used *[id number] 17:48 [employer] 30 JAGRUTI INDEFLATOR Used *[id number] 16:57 Scayl MEDICAL SHEATH, FR6.5 PRELUDE 11CM FR 6.5 038ACT Used *8932901 [id number] 16:57 [employer] WIRE, 3MMJ .035 180CM 180CM Used *[id number] 16:57 NAMIC MANIFOLD, 4 PORT * Used *[id number] 16:57 NYCOMED OMNIPAQUE, 350 MG, 100ML 100ML [id number] Used [id number] 16:57 [employer]AY[employer]OR [employer],WARM AIR CCL * Used *[id number] Equipment Model, Serial, Lot Number and Expiration Data Description Model Number Serial Number Lot Number Expiration Date ANGIOSEAL, FR6 VIP [id number] 05-04-2018 [id number] STENT, 2.5 26MM RENE [id number] 03-31-2019 0X STENT, 3.5 15MM RENE [id number] 04-27-2019 STENT, 3.5 18MM RENE [id number] 01-06-2017 History: Current Medications Medication Dosage/Unit Route Frequency Last Date/Time Taken CLONIDINE PLAVIX LASIX LIPITOR History: Allergies Allergy Reaction *MDRO Multi-Drug Resistant Organism History: Risk Factors Family History of Hypertension Dyslipidemia Previous LA Previous Heart Failure Premature CAD Yes Yes No No No Prior Valve Prior PCI Prior CABG Surgery No No No Cerebrovascular Peripheral Artery Chronic Lung On Dialysis Diabetes Diabetes Therapy Disease Disease Disease No Yes No No Yes Insulin History: Symptoms/Diagnosis Selection Items Chest pain History: Stress Tests Stress or Imaging Studies Performed Yes Standard Exercise Stress Test No Stress Echo No Stress Test SPECT No Stress Test CMR Stress Test CMR Result Stress Test CMR Ischemia Risk/Extent Yes Positive Intermediate Cardiac CTA Coronary Calcium Score No No History: Other Disease Selection Items Gerd HTN Labs Hgb (g/dl) Hct (%) RBC (MIL/MM3) WBC (l/cumm) Platelets (thousands) 11.60-17.00 35.00-51.00 4.00-5.90 4.00-11.00 150.00-450.00 9.0 26.3 2.8 8 131 Glucose (mg/dl) BUN (mg/dl) Creatinine (mg/dl) BUN:Creatinine (1:x) 74.00-106.00 7.00-18.00 0.50-1.30 10.00-20.00 233 61 4.8 12.7 Na (meq/l) K (meq/l) Cl (meq/l) CO2 (mmol/L) Ca (mg/dl) 136.00-145.00 3.50-5.10 98.00-107.00 21.00-32.00 8.50-10.10 138 4.3 101 29 7.9 Troponin I (ng/ml) CPK (u/l) CPK-MB (ng/ML) 0.02-0.05 26.00-308.00 0.50-3.60 0.06 51 Not Drawn Medication Medication Total Dose (Bolus/Oral) Medication Total Dosage/Unit 1% XYLOCAINE 20 mL BRILINTA 180 mg HEPARIN 7000 units NTG (IC) 200 mcg VERSED 2 mg Medications (Bolus/Oral) Medication Time Given Dosage/Unit Administered By Reason VERSED 08/20/2017 5:21:21 PM 1 mg Starr Dumont Patient arrived on 1 mg VERSED given by Starr Dumont RN in Right Forearm via Peripheral IV. Ordere d by Ganga Rizo. 1% XYLOCAINE 08/20/2017 5:26:43 PM 20 mL Ganga Rizo Patient arrived on 20 mL 1% XYLOCAINE given by Ganga Rizo in Right Groin via Subcutaneous. Ordered by Ganga Rizo. HEPARIN 08/20/2017 5:40:10 PM 7000 units Starr Dumont Patient arrived on 7000 units HEPARIN given by Starr Dumont RN in Right Forearm via Peripheral IV. Ordered by Ganga Rizo. VERSED 08/20/2017 5:41:17 PM 1 mg Starr Dumont Patient arrived on 1 mg VERSED given by Starr Dumont, HAMIDA in Right Forearm via Peripheral IV. Ordere d by Ganga Rizo. NTG (IC) 08/20/2017 5:52:23 PM 200 mcg Ganga Rizo Patient arrived on 200 mcg NTG (IC) given by Ganga Rizo in Right Groin via Intra-coronary. Ordered by Ganga Rizo. BRILINTA 08/20/2017 6:29:30 PM 180 mg Ganga Rizo Patient arrived on 180 mg BRILINTA given by Ganga Rizo via Oral. Ordered by Ganga Rizo. Medication (Drip) Medication Time Given Dosage/Unit Concentration/Unit Diluent (ml) Solution IV Solutions 08/20/2017 4:57:47 PM 0 mL (IV) 500 NaCl .9 Patient arrived on IV Solutions given by Ganga Rizo in Right Forearm via Peripheral IV. Pump/Drip Flow = 20 ml/hr using NaCl .9. Ordered by Ganga Rizo. Initial Case Assessment Cardiovascular HR NIBP 58 193/30 Edema Present Skin color Skin None Normal Warm Dry Circulatory - Right Pulses Dorsalis Pedis Femoral 1 1 Scale (0,1,2,3,4,d) Circulatory - Left Pulses Dorsalis Pedis Femoral 1 1 Scale (0,1,2,3,4,d) Neurological State Oriented to time-place- Alert Moves all extremities person Respiration - General Respiration Rate SpO2 (%) (B/min) 12 98 Final Case Assessment Cardiovascular HR NIBP 57 180/45 Edema Present Skin color Skin None Normal Warm Dry Circulatory - Right Pulses Dorsalis Pedis Femoral 1 1 Scale (0,1,2,3,4,d) Circulatory - Left Pulses Dorsalis Pedis Femoral 1 1 Scale (0,1,2,3,4,d) Neurological State Oriented to time-place- Alert Moves all extremities person Respiration - General Respiration Rate SpO2 (%) (B/min) 15 96 Chronological Log Time Study Chronological Log 16:47:59 Patient arrived via Bed. 16:47:59 Patient Name, D.O.B, / Armband Verified By R.N. 16:48:00 Consent signed by the physician and the patient and verified by the Manager Flight staff. 16:48:01 Pre-op and post- op instructions given; patient acknowledges understanding of instructions. Verbal Stimulation=~VERBAL~ Physical Stimulation=~PHYSICAL~ Airway=~AIRWAY~ Respiration=~RESPIR ATION~ 16:48:01 TOTAL=~TOTAL~. (0=absent, 1=limited, 2=present) Vitals capture started with the following parameters, Patient=Adult, Interval=5 min, Initial Pr voikys=554 mmHg, 16:57:34 Deflation Rate=5 mmHg, Cuff placed on Left Arm 16:57:37 Patient has been NPO for More than 6Hrs. 16:57:38 Skin Breakdown- 16:57:39 Patient Warmer Placed on the Table. 16:57:40 Pura Prominences Protected 16:57:44 A # 20 IV was noted in the Forearm (right). Grade = 0 Patient arrived on IV Solutions given by Ganga Rizo in Right Forearm via Peripheral IV. Pump /Drip Flow = 20 ml/hr 16:57:47 using NaCl .9. Ordered by Ganga Rizo. 16:58:14 History and physical on the chart or being dictated. Assessment: Initial Case, HR=58 BPM, LFDO=082/30 mmhg, Edema=None, Color=Normal, Skin = Warm, D ry Right Pulses: Shabbir Ped=1, Femoral=1 16:58:16 Left Pulses: Shabbir Ped=1, Femoral=1 Neurological: State=Alert, Ox3, DE DIOS Respiration: Resp=12 B/min, SpO2=98 % 16:58:18 Reference ECG taken 16:59:07 HR=58 bpm, GUYH=536/41 mmhg, SpO2=97.0 %, Resp=11 B/min, Pain=10, Zakiya=10, Ravi=2 17:04:29 HR=57 bpm, MKFJ=505/40 mmhg, SpO2=96.0 %, Resp=14 B/min, Pain=10, Zakiya=10, Ravi=2 17:05:38 Bilateral groins prepped with 2% chlorhexidine, and draped after a 3 minute waiting time. 17:09:19 HR=56 bpm, TVOG=648/30 mmhg, SpO2=98.0 %, Resp=12 B/min, Pain=10, Zakiya=10, Ravi=2 17:10:01 Pressure channel 1 zeroed. 17:14:29 HR=56 bpm, LEYI=045/38 mmhg, SpO2=97.0 %, Resp=16 B/min, Pain=10, Zakiya=10, Ravi=2 17:18:30 HR=56 bpm, ATVC=189/43 mmhg, SpO2=98 %, Resp=17 B/min, Pain=10, Zakiya=10, Ravi=2 Patient arrived on 1 mg VERSED given by HesStarr alvares RN in Right Forearm via Peripheral IV. Ordered by Darrius, 17:21: Ganga. Time Out. Correct patient, correct procedure, correct physician, power injector not loaded with contrast with surgical 17:: team present. Time Out Concurred by MD and individual staff in procedure. 17:21:50 Case Start 17:24:06 HR=56 bpm, MGVT=512/40 mmhg, SpO2=98.0 %, Resp=16 B/min, Pain=10, Zakiya=10, Ravi=2 Patient arrived on 20 mL 1% XYLOCAINE given by Ganga Rizo in Right Groin via Subcutaneous. O rdered by Darrius, 17:26:43 Ganga. 17:26:52 Access site was Right Femoral Artery. A JL 5.0 INFINITI CATHETER FR 6 was advanced over a wire. OMNIPAQUE, 350 MG, 100ML 100ML was us ed for 17:27:19 injections. Recorded Pressure: Ao, HR=55, Condition=Condition 1 17:28:46 (Aorta) Ao 123/48/75 17:29:26 HR=55 bpm, SCHS=600/37 mmhg, SpO2=95.0 %, Resp=14 B/min, Pain=10, Zakiya=10, Ravi=2 17:29:38 The LCA was injected and visualized at various angles. OMNIPAQUE, 350 MG, 100ML 100ML used . 17:31:03 Catheter was removed A 3DRC INFINITI CATHETER FR 6 was advanced over a wire. OMNIPAQUE, 350 MG, 100ML 100ML was used for 17:31:05 injections. 17:32:47 The RCA was injected and visualized at various angles. OMNIPAQUE, 350 MG, 100ML 100ML used . 17:33:31 Catheter was removed 17:34:08 HR=56 bpm, ZRSL=612/35 mmhg, SpO2=96.0 %, Resp=11 B/min, Pain=10, Zakiya=10, Ravi=2 17:39:24 HR=56 bpm, SUSJ=379/35 mmhg, SpO2=96.0 %, Resp=15 B/min, Pain=10, Zakiya=10, Ravi=2 Patient arrived on 7000 units HEPARIN given by Starr Dumont RN in Right Forearm via Peripher al IV. Ordered by 17:40:10 Ganga Rizo. Patient arrived on 1 mg VERSED given by Starr Dumont, HAMIDA in Right Forearm via Peripheral IV. Ordered by Darrius, 17:41:17 Ganga. A XB 4.5 GUIDE CATHETER FR 6 was advanced over a wire. OMNIPAQUE, 350 MG, 100ML 100ML was used for 17:41:26 injections. 17:44:17 HR=56 bpm, PAWP=675/37 mmhg, SpO2=93 %, Resp=13 B/min, Pain=10, Zakiya=10, Ravi=2 17:44:53 A WIRE, BALANCE MIDDLEWEIGHT 190CM 190CM was inserted via Fem Art (right). 17:46:13 Interventional wire has crossed the lesion 17:46:52 Activated Clotting Time Drawn A BALLOON, 2.0 X 20MM EUPHORA 20MM was inserted over WIRE, BALANCE MIDDLEWEIGHT 190CM 190CM via the 17:47:13 OM1 Mid. A BALLOON, 2.0 X 20MM EUPHORA 20MM over a WIRE, BALANCE MIDDLEWEIGHT 190CM 190CM in the OM1 Mid was 17:48:10 inflated using a 30 JAGRUTI INDEFLATOR at 14 jagruti for 30 sec. 17:48:29 HR=55 bpm, INMX=812/41 mmhg, SpO2=92.0 %, Resp=10 B/min, Pain=10, Zakiya=10, Ravi=2 A BALLOON, 2.0 X 20MM EUPHORA 20MM over a WIRE, BALANCE MIDDLEWEIGHT 190CM 190CM in the OM1 Mid was 17:48:53 inflated using a 30 JAGRUTI INDEFLATOR at 14 jagruti for 30 sec. A BALLOON, 2.0 X 20MM EUPHORA 20MM over a WIRE, BALANCE MIDDLEWEIGHT 190CM 190CM in the OM1 Mid was 17:49:32 inflated using a 30 JAGRUTI INDEFLATOR at 14 jagruti for 19 sec. 17:51:02 Balloon Removed. Patient arrived on 200 mcg NTG (IC) given by Ganga Rizo in Right Groin via Intra-coronary. O rdered by Darrius, 17:52:23 Ganga. 17:53:08 ACT (Normal Range 90-180) = 262 A STENT, 2.5 26MM RENE 2.5 26MM was advanced through a XB 4.5 GUIDE CATHETER FR 6 over a WIRE, BALANCE 17:53:27 MIDDLEWEIGHT 190CM 190CM. 17:53:30 HR=56 bpm, XRMZ=904/39 mmhg, SpO2=94.0 %, Resp=10 B/min, Pain=10, Zakiya=10, Ravi=2 17:54:50 Stent not deployed. Stent removed and intact. A BALLOON, 2.5 X 20MM EUPHORA 20MM was inserted over WIRE, BALANCE MIDDLEWEIGHT 190CM 190CM via the 17:55:01 OM1 Mid. A BALLOON, 2.5 X 20MM EUPHORA 20MM over a WIRE, BALANCE MIDDLEWEIGHT 190CM 190CM in the OM1 Mid was 17:56:05 inflated using a 30 JAGRUTI INDEFLATOR at 14 jagruti for 20 sec. A BALLOON, 2.5 X 20MM EUPHORA 20MM over a WIRE, BALANCE MIDDLEWEIGHT 190CM 190CM in the OM1 Mid was 17:56:53 inflated using a 30 JAGRUTI INDEFLATOR at 14 jagruti for 22 sec. 17:57:50 Balloon Removed. 17:58:21 HR=57 bpm, NUSP=932/49 mmhg, SpO2=95.0 %, Resp=10 B/min, Pain=10, Zakiya=10, Ravi=2 A STENT, 2.5 26MM RENE 2.5 26MM was advanced through a XB 4.5 GUIDE CATHETER FR 6 over a WIRE, BALANCE 17:59:09 MIDDLEWEIGHT 190CM 190CM. A STENT, 2.5 26MM RENE 2.5 26MM was deployed using a 30 JAGRUTI INDEFLATOR at 16 atmospheres for 30 seconds in 18:00:20 the OM1 Mid. 18:01:24 Delivery device removed 18:03:24 HR=60 bpm, OXNO=846/51 mmhg, SpO2=95.0 %, Resp=10 B/min, Pain=10, Zakiya=10, Ravi=2 18:03:52 Wire removed 18:03:54 A WIRE, BALANCE MIDDLEWEIGHT 190CM 190CM was inserted via Fem Art (right). PLACED IN LAD 18:06:30 Interventional wire has crossed the lesion A STENT, 3.5 18MM RENE 3.5 18MM was advanced through a XB 4.5 GUIDE CATHETER FR 6 over a WIRE, BALANCE 18:07:55 MIDDLEWEIGHT 190CM 190CM. A STENT, 3.5 18MM RENE 3.5 18MM was deployed using a 30 JAGRUTI INDEFLATOR at 16 atmospheres for 18 seconds in 18:08:28 the LAD Mid. 18:09:04 HR=60 bpm, ZCKQ=595/39 mmhg, SpO2=97.0 %, Resp=10 B/min, Pain=10, Zakiya=10, Ravi=2 18:10:23 Delivery device removed 18:10:52 Wire removed 18:11:24 Catheter was removed A JR 4.0 GUIDE CATHETER FR 6 was advanced over a wire. OMNIPAQUE, 350 MG, 100ML 100ML was used for 18:11:30 injections. 18:14:17 A WIRE, BALANCE MIDDLEWEIGHT 190CM 190CM was inserted via Fem Art (right). 18:14:19 HR=62 bpm, BMGT=049/51 mmhg, SpO2=97.0 %, Resp=9 B/min, Pain=10, Zakiya=10, Ravi=2 A STENT, 3.5 15MM RENE 3.5 15MM was advanced through a JR 4.0 GUIDE CATHETER FR 6 over a WIRE, BALANCE 18:15:59 MIDDLEWEIGHT 190CM 190CM. A STENT, 3.5 15MM RENE 3.5 15MM was deployed using a 30 JAGRUTI INDEFLATOR at 18 atmospheres for 30 seconds in 18:16:48 the RCA Prox. 18:17:44 Delivery device removed 18:18:35 HR=60 bpm, WUBG=087/39 mmhg, SpO2=98.0 %, Resp=15 B/min, Pain=10, Zakiya=10, Ravi=2 18:19:14 Wire removed 18:19:23 Catheter was removed A PIGTAIL ANG. 145 INFINITI CATHETER FR 6 was advanced over a wire. OMNIPAQUE, 350 MG, 100ML 10 0ML was 18:19:34 used for injections. 18:20:47 The LV was manually injected with 10 cc's and visualized. OMNIPAQUE, 350 MG, 100ML 100ML us ed. Recorded Pressure: LV, HR=60, Condition=Condition 1 18:21:16 (Left Ventricle) LV 141/16/26 Recorded Pressure: LV, Ao, HR=60, Condition=Condition 1 18:21:27 (Left Ventricle) LV 145/18/29, (Aorta) Ao 143/55/89 18:22:00 Catheter was removed 18:22:57 An injection in the Fem Art (right) was made through the SHEATH, FR6.5 PRELUDE 11CM FR 6.5 . 18:23:32 HR=60 bpm, KMOJ=663/46 mmhg, SpO2=95.0 %, Resp=15 B/min, Pain=10, Zakiya=10, Ravi=2 18:27:34 ANGIOSEAL, FR6 VIP FR 6 placement in the Fem Art (right) 18:27:43 Case End 18:27:46 Sterile dressing applied to site 18:27:47 No case complications noted. 18:27:48 Cine recording checked. 18:29:14 HR=59 bpm, UBWN=123/39 mmhg, SpO2=97.0 %, Resp=10 B/min, Pain=10, Zakiya=10, Ravi=2 18:29:30 Patient arrived on 180 mg BRILINTA given by Ganga Rizo via Oral. Ordered by Osorio Rizo. 18:34:30 HR=57 bpm, PDHB=181/45 mmhg, SpO2=96.0 %, Resp=15 B/min, Pain=10, Zakiya=10, Ravi=2 Assessment: Final Case, HR=57 BPM, SHRW=497/45 mmhg, Edema=None, Color=Normal, Skin = Warm, Dr y Right Pulses: Shabbir Ped=1, Femoral=1 18:34:50 Left Pulses: Shabbir Ped=1, Femoral=1 Neurological: State=Alert, Ox3, DE DIOS Respiration: Resp=15 B/min, SpO2=96 % 18:36:55 Vitals capture stopped. 18:36:59 Patient moved to [facility] End Study - Contrast Media Used In Study Contrast Total Opened (mL) Total Used (mL) Total Wasted (mL) Omnipaque 150 150 0 End Study - Maximum Contrast Load Max Contrast Load (mL) 139.7 End Study - Radiation Exposure Fluoro Time (minutes) 13.7 End Study - Patient Disposition Complications Transferred To Interventional Outcome No Telemetry Bed successful
--- NOTE | 2017-08-20 19:43 | MA ---
cc: KAREN VERDE M.D. DATE: 08/20/2017. PROCEDURE PERFORMED: Left heart catheterization, left ventriculography, coronary angiography, balloon angioplasty and stenting of the major obtuse marginal branch of the left circumflex artery, direct stenting of the left anterior descending coronary artery, direct stenting of the proximal right coronary artery, right femoral angiography with Angio-Seal placement. DESCRIPTION OF THE PROCEDURE IN DETAIL: The patient was brought to cardiac catheterization laboratory in a fasting state. The right groin was prepped and draped in sterile fashion. Using 1% lidocaine for local anesthesia, a 6-Luxembourgish sheath was inserted into the right femoral artery. Next, coronary angiography was completed using a left 5 Sindi for the left coronary artery and a 3DRC for the right coronary artery. I opted to proceed with intervention after discussing the case with Dr. Cheema. the patient is felt to be very high risk for bypass and had very stentable lesions. Intravenous heparin was administered with therapeutic ACT achieved. We started with a 6-Luxembourgish XB 4.5 guiding catheter. I wired the circumflex marginal branch with a BMW wire. I predilated it with a 2.0 mm balloon. The stent would not cross. I predilated it again with 2.5 mm balloon. I then stented it with a 2.5 mm x 26 mm long Jose stent at 16 atmospheres. Outstanding angiographic result was achieved. I then directed the wire down the LAD and I direct stented the LAD with a 3.5 x 18-mm Goldsmith stent at 16 atmospheres with an excellent angiographic result. I then removed the guiding catheter. I used a JR-4 guiding catheter and wired the right coronary artery and drug stented the proximal right coronary artery with a 3.5 x 15 mm Goldsmith stent at 18 atmospheres. An outstanding angiographic result was achieved. I then prepped the right groin as sterilely as I could with new sterile gloves, new sterile towels and Chloraprep. The right groin was then sealed with an Angio-Seal device without complication. The patient tolerated the procedure well. Total contrast load was 150 cc. Total fluids is 400 cc. FINDINGS: 1. HEMODYNAMICS: Left ventricular pressure was 145/18 with an end diastolic pressure of 29. Aortic pressure was 143/55 with a mean of 89. There was no gradient during pullback from the left ventricle to the aorta. 2. LEFT VENTRICULOGRAPHY: Left ventriculography was somewhat under-opacified. SPECT apical hypokinesis and diaphragmatic hypokinesis. Estimated ejection fraction of 40%. This is different I noted than the echocardiogram. 3. CORONARY ANGIOGRAPHY: The left main coronary artery has irregularities only. The left anterior descending artery has 75% stenosis just past the first septal and first diagonal branch. The first diagonal branch has severe disease in multiple spots 70% severity. The remainder of the left anterior descending has only irregularities. The circumflex artery is totally occluded distally. The major obtuse marginal branch has a 95% long stenosis, tortuous on a curve. The right coronary artery is dominant and has a 75% ulcerated proximal stenosis and 30% mid stenosis. The right coronary artery is dominant. 4. RESULTS OF STENTING: Following stenting of all three lesions, all three lesions were reduced 0 to -10% without evidence of thrombus or dissection. CONCLUSIONS: 1. At least mildly impaired left ventricular function. 2. Severe multivessel disease. 3. Complete revascularization following stenting of the mid left anterior descending, major obtuse marginal branch and proximal right coronary artery. 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 PLAN: 1. The patient has been loaded with Brilinta. 2. The procedure was done with Heparin. 3. The patient will continue on an 81 milligram aspirin and Brilinta. MD DARRELL Torres/NICKI /6:37 PM /7:28 PM
[2017-08-20] MEDS ORDERED: HEPARIN SODIUM - IV 10,000 UNITS/10 ML VIAL ONE (20:31)
[2017-08-20] MEDS: ATORVASTATIN 20 MG TAB PO SCH (21:00)
[2017-08-20] MEDS: SODIUM CHLORIDE 0.9% FLUSH 10 ML FLUSH IV FLUSH SCH (21:00)
[2017-08-21] VITALS (16 sets, daily range): BP systolic 108–159; BP diastolic 41–68; PULSE 54–76; RESP 16–20; TEMP 98.2–98.8; O2SAT 96–100
[2017-08-21 06:44] LABS: AUTOMATED NEUTROPHIL # 4.6 TH/MM3 (1.8-7.7); BASOPHIL % 0.6 % (0.0-2.0); EOSINOPHIL # 0.2 TH/MM3 (0-0.4); HEMATOCRIT 30.1 % (39.0-51.0); HEMOGLOBIN 10.1 GM/DL (13.0-17.0); LYMPH % 13.1 % (9.0-44.0); LYMPHOCYTE # 0.8 TH/MM3 (1.0-4.8); MEAN CELL VOLUME 94.2 FL (80.0-100.0); MEAN CORPUSCULAR HEMOGLOBIN 31.7 PG (27.0-34.0); MEAN CORPUSCULAR HGB CONC 33.6 % (32.0-36.0); MEAN PLATELET VOLUME 8.3 FL (7.0-11.0); MONO % 10.8 % (0.0-8.0); MONOCYTE # 0.7 TH/MM3 (0-0.9); NEUT % 72.5 % (16.0-70.0); PLATELET COUNT 153 TH/MM3 (150-450); RED CELL DISTRIBUTION WIDTH 16.1 % (11.6-17.2); WHITE BLOOD COUNT 6.4 TH/MM3 (4.0-11.0)
[2017-08-21 07:06] LABS: BICARBONATE 28.9 MEQ/L (21.0-32.0); CALCIUM 8.7 MG/DL (8.5-10.1); CREATININE 5.19 MG/DL (0.60-1.30)
[2017-08-21] MEDS: COLLAGENASE OINT 30 GM TUBE TOPICAL SCH (09:00)
[2017-08-21] MEDS: PHENYTOIN SODIUM 100 MG CAP PO SCH ×3 (10:06→21:44)
[2017-08-21] MEDS: TICAGRELOR 90 MG TAB PO SCH ×2 (10:06→21:44)
[2017-08-21] MEDS: PANTOPRAZOLE SOD 40 MG DELAYED RELEASE TAB PO SCH (10:06)
[2017-08-21] MEDS: INSULIN DETEMIR 100 UNITS/ML VIAL SQ SCH (10:06)
[2017-08-21] MEDS: METOPROLOL SUCCINATE 50 MG EXTENDED RELEASE TAB PO SCH (10:06)
[2017-08-21] MEDS: ASPIRIN 81 MG CHEW TAB PO SCH (10:07)
[2017-08-21] MEDS: CLOPIDOGREL 75 MG TAB PO SCH (10:07)
[2017-08-21] MEDS: GABAPENTIN 300 MG CAP PO SCH ×2 (10:07→21:44)
[2017-08-21] MEDS: CALCIUM ACETATE 667 MG CAP PO SCH ×3 (10:07→21:44)
[2017-08-21] MEDS: FUROSEMIDE 40 MG/4 ML VIAL IV PUSH SCH ×2 (10:08→21:45)
[2017-08-21] MEDS: ENALAPRIL MALEATE 10 MG TAB PO SCH (10:08)
[2017-08-21] MEDS: HEPARIN SODIUM - SQ 10,000 UNITS/ML VIAL SQ SCH ×2 (10:08→21:46)
[2017-08-21] MEDS: INSULIN ASPART SUPPLEMENTAL SCALE SQ SCH ×3 (10:09→23:52)
[2017-08-21] MEDS: MORPHINE SULFATE 2 MG/ML INJ IV PUSH PRN ×4 (10:09→21:54)
[2017-08-21] MEDS: cloNIDine HCL 0.2 MG TAB PO SCH ×2 (10:14→21:44)
[2017-08-21] MEDS: SODIUM CHLORIDE 0.9% FLUSH 10 ML FLUSH IV FLUSH SCH ×2 (10:15→21:00)
[2017-08-21] MEDS ORDERED: ASPI81 PO (11:21)
[2017-08-21] MEDS ORDERED: ENAL10TA PO (11:21)
[2017-08-21] MEDS ORDERED: BRIL90TA PO (11:21)
--- NOTE | 2017-08-21 12:23 | PD.CARD.PN ---
Subjective Subjective Remarks sharp pleuritic SSCP unchanged Objective Medications Current Medications Medications (Trade) Dose Ordered Sig/[place] Route Start Time Stop Time Status Last Admin (NS Flush) 2 ml UNSCH PRN IVF 08/16/17 17:00 08/19/17 00:38 (Lipitor) 20 mg HS PO 08/16/17 21:00 08/19/17 21:32 (Neurontin) 300 mg BID PO 08/16/17 21:00 08/21/17 10:07 (Toprol Xl) 50 mg DAILY PO 08/17/17 09:00 08/21/17 10:06 (Nitrostat Sl) 0.4 mg Q5M PRN SL 08/16/17 21:30 08/17/17 10:12 (D50w (Vial) Inj) 50 ml UNSCH PRN IV PUSH 08/17/17 07:45 (Glucagon Inj) 1 mg UNSCH PRN OTHER 08/17/17 07:45 (NovoLOG SUPPLEMENTAL SCALE) 1 ACHS SLIDING SCALE SQ 08/17/17 08:00 08/21/17 10:09 (Morphine Inj) 2 mg Q4H PRN IV PUSH 08/17/17 08:30 08/21/17 10:09 (Protonix) 40 mg DAILY PO 08/17/17 09:00 08/21/17 10:06 (Phoslo) 1,334 mg TID PO 08/17/17 09:00 08/21/17 10:07 (Santyl Oint) 1 applic DAILY TOPICAL 08/17/17 09:00 08/20/17 09:20 (Levemir Inj) 34 units DAILY SQ 08/17/17 09:00 08/21/17 10:06 (Dilantin) 100 mg TID PO 08/17/17 09:00 08/21/17 10:06 (Heparin Inj) 5,000 units Q12HR SQ 08/17/17 09:00 08/21/17 10:08 (Lasix Inj) 40 mg BID@ IV PUSH 08/17/17 18:00 08/21/17 10:08 (Vasotec) 10 mg DAILY PO 08/17/17 12:30 08/21/17 10:08 (Catapres) 0.2 mg Q12HR PO 08/17/17 21:00 08/21/17 10:14 Sodium Chloride 1,000 ml @ 0 mls/hr Q0M PRN OTHER 08/17/17 14:19 (Heparin Inj) 8,000 units UNSCH PRN IV FLUSH 08/17/17 14:30 Sodium Chloride 1,000 ml @ 200 mls/hr Q5H PRN IV 08/17/17 14:19 Sodium Chloride 1,000 ml @ 0 mls/hr Q0M PRN OTHER 08/17/17 14:19 (Mannitol Inj) 12.5 gm UNSCH PRN IV 08/17/17 14:30 Albumin Human 100 ml @ 60 mls/hr UNSCH PRN IV 08/17/17 14:30 (NS Flush) 5 ml UNSCH PRN IV FLUSH 08/17/17 14:30 (Heparin Inj) UNSCH PRN .XX 08/17/17 14:30 08/17/17 20:43 (Gentamicin Inj) 20 mg UNSCH PRN OTHER 08/17/17 14:30 08/17/17 20:43 (Zofran Inj) 4 mg UNSCH PRN IV PUSH 08/17/17 14:30 (Tylenol) 650 mg UNSCH PRN PO 08/17/17 14:30 (Benadryl) 25 mg UNSCH PRN PO 08/17/17 14:30 (Nitrostat Sl) 0.4 mg UNSCH PRN SL 08/17/17 14:30 (Catapres) 0.1 mg UNSCH PRN PO 08/17/17 14:30 (Epogen Inj) 6,000 units UNSCH PRN IV PUSH 08/17/17 14:30 08/17/17 20:44 (Gelfoam 12 Mm/7 Mm Top) 1 foam UNSCH PRN TOP 08/17/17 14:30 (Benadryl) 50 mg BRAZER PRODUCTION LINE PO 08/19/17 15:30 08/23/17 15:29 (Valium) 10 mg BRAZER PRODUCTION LINE PO 08/19/17 15:30 08/23/17 15:29 08/20/17 15:16 (Versed Inj) 1 mg BRAZER PRODUCTION LINE IV PUSH 08/19/17 15:30 08/23/17 15:29 (NS Flush) 2 ml UNSCH PRN IV FLUSH 08/20/17 18:45 (NS Flush) 2 ml BID IV FLUSH 08/20/17 21:00 08/21/17 10:15 (Aspirin Chew) 81 mg DAILY PO 08/21/17 09:00 08/21/17 10:07 (Brilinta) 90 mg BID PO 08/21/17 09:00 08/21/17 10:06 Vital Signs / I&O Vital Signs Date Time Temp Pulse Resp B/P (MAP) Pulse Ox O2 Delivery O2 Flow Rate FiO2 08/21/17 08:00 98.8 64 20 136/41 (72) 100 08/21/17 03:00 98.7 55 16 152/51 (84) 100 08/21/17 02:00 56 08/21/17 01:00 54 08/21/17 00:00 56 08/20/17 23:00 54 08/20/17 23:00 98.7 55 16 137/55 (82) 99 08/20/17 22:00 54 08/20/17 21:00 54 08/20/17 20:00 62 08/20/17 20:00 98.7 57 16 144/57 (86) 91 08/20/17 19:00 58 08/20/17 15:12 98.0 64 22 115/59 (77) 97 08/20/17 15:01 21 08/20/17 12:29 98.0 60 18 98 I/O 08/20/17 08/20/17 08/20/17 08/21/17 08/21/17 08/21/17 07:00 15:00 23:00 07:00 15:00 23:00 Intake Total 240 ml Output Total 650 ml 325 ml Balance -650 ml -85 ml Intake Oral 240 ml Output Urine Total 650 ml 325 ml Physical Exam Obese, alert, NAD Chest CTA CV S1S2 RRR right groin OK Ext: no significant edema Laboratory Laboratory Tests Test 08/21/17 04:53 White Blood Count 6.4 TH/MM3 Red Blood Count 3.20 MIL/MM3 Hemoglobin 10.1 GM/DL Hematocrit 30.1 % Mean Corpuscular Volume 94.2 FL Mean Corpuscular Hemoglobin 31.7 PG Mean Corpuscular Hemoglobin Concent 33.6 % Red Cell Distribution Width 16.1 % Platelet Count 153 TH/MM3 Mean Platelet Volume 8.3 FL Neutrophils (%) (Auto) 72.5 % Lymphocytes (%) (Auto) 13.1 % Monocytes (%) (Auto) 10.8 % Eosinophils (%) (Auto) 3.0 % Basophils (%) (Auto) 0.6 % Neutrophils # (Auto) 4.6 TH/MM3 Lymphocytes # (Auto) 0.8 TH/MM3 Monocytes # (Auto) 0.7 TH/MM3 Eosinophils # (Auto) 0.2 TH/MM3 Basophils # (Auto) 0.0 TH/MM3 CBC Comment DIFF FINAL Differential Comment Blood Urea Nitrogen 64 MG/DL Creatinine 5.19 MG/DL Random Glucose 164 MG/DL Calcium Level 8.7 MG/DL Sodium Level 138 MEQ/L Potassium Level 4.7 MEQ/L Chloride Level 99 MEQ/L Carbon Dioxide Level 28.9 MEQ/L Anion Gap 10 MEQ/L Estimat Glomerular Filtration Rate 11 ML/MIN Total Creatine Kinase 40 U/L Assessment and Plan Problem List: (1) ESRD (end stage renal disease) on dialysis ICD Codes: N18.6 - End stage renal disease; Z99.2 - Dependence on renal dialysis (2) Elevated troponin I level ICD Codes: R74.8 - Abnormal levels of other serum enzymes (3) Stented coronary artery ICD Codes: Z95.5 - Presence of coronary angioplasty implant and graft (4) Pleuritic chest pain ICD Codes: R07.81 - Pleurodynia Plan: Etiology unclear. Check venous doppler. Consider chest CTA. Consider short course steroids. (5) 3-vessel coronary artery disease ICD Codes: I25.10 - Atherosclerotic heart disease of [place] coronary artery without angina pectoris Plan: s/p 3V stent. LCX occluded distally. Diagonal diseased. Everything else revascularized. Ganga Rizo MD Aug 21, 2017 12:23
--- NOTE | 2017-08-21 13:36 | EKG ---
Date Performed: 08/20/2017 Time Performed: 20:20:04 PTAGE: 62 years EKG: Sinus rhythm with first degree AV block, consider ectopic atrial rhythm Prolonged QT interval Abnormal ECG PREVIOUS TRACING : 08/17/2017 08.43 DOCTOR: Zana Reed Interpretating Date/Time 08/21/2017 13:35:34
--- NOTE | 2017-08-21 13:38 | EKG ---
Date Performed: 08/21/2017 Time Performed: 06:06:46 PTAGE: 62 years EKG: Sinus rhythm with first degree AV block, consider ectopic atrial rhythm Prolonged QT interval Abnormal ECG PREVIOUS TRACING : 08/20/2017 20.20 DOCTOR: Zana Reed Interpretating Date/Time 08/21/2017 13:36:47
--- NOTE | 2017-08-21 16:16 | HHI.NPPN ---
Subjective History of Present Illness 62-year-old male known to me from before with history of hypertension, diabetes mellitus, hyperlipidemia, gastroesophageal reflux disease, seizure disorder, end-stage renal disease on hemodialysis three times per week, history of chronic anemia who presented to the hospital with complaint of shortness of breath and chest pain. I was called to see the patient for the management of dialysis. Additional Remarks Patient is alert, doing okay Review of Systems Respiratory Lungs: SOB Cardiovascular Cardiac: Chest Pain Objective Data Data Vital Signs Date Time Temp Pulse Resp B/P (MAP) Pulse Ox O2 Delivery O2 Flow Rate FiO2 08/21/17 14:03 98.2 66 16 147/68 (94) 100 08/21/17 08:00 98.8 64 20 136/41 (72) 100 08/21/17 03:00 98.7 55 16 152/51 (84) 100 08/21/17 02:00 56 08/21/17 01:00 54 08/21/17 00:00 56 08/20/17 23:00 54 08/20/17 23:00 98.7 55 16 137/55 (82) 99 08/20/17 22:00 54 08/20/17 21:00 54 08/20/17 20:00 62 08/20/17 20:00 98.7 57 16 144/57 (86) 91 08/20/17 19:00 58 -: 08/21/17 0453 08/21/17 0453 Physical Exam General Appearance: No Acute Distress, Comfortable Eyes Eye Exam: Pupils Equal Throat Throat Exam: Oral Mucosa [place] & Moist Pulmonary Resp Exam: Breath Sounds Equal, No Distress, Decreased Bases Cardiology CV Exam: Regular, Normal Sinus Rhythm Gastrointestinal/Abdomen GI Exam: Soft, Non-Tender, Bowel Sounds Present Extremeties Extremities Exam: Moderate Edema Neurologic Neuro Exam: Alert, Awake, Oriented Psychiatric Psych Exam: Appropriate Responses Assessment/Plan Assessment Summary: Anemia of CKD, Fluid/Volume Overload, Hypertension, End Stage Renal Disease Problem List: (1) Anemia ICD Codes: D64.9 - Anemia Status: Acute (2) Anxiety ICD Codes: F41.9 - Anxiety Status: Acute (3) Diabetes ICD Codes: E11.9 - Diabetes Status: Chronic (4) Elevated troponin I level ICD Codes: R74.8 - Abnormal levels of other serum enzymes (5) Atypical chest pain ICD Codes: R07.89 - Other chest pain (6) ESRD (end stage renal disease) on dialysis ICD Codes: N18.6 - End stage renal disease; Z99.2 - Dependence on renal dialysis Plan Patient has ESRD and going for hemodialysis today He is on Wednesday, and Wednesday schedule His heart catheterization showed multivessel disease with left anterior descending stent, obtuse marginal and proximal right coronary artery disease was treated Continue to monitor he is on anticoagulation aspirin and Brilinta 1820 pm seen at HD tolerating it well 6 L UF Adamaris Chacon MD Aug 21, 2017 16:16
--- NOTE | 2017-08-21 16:53 | HHI.PR ---
Objective Vitals Vital Signs Date Time Temp Pulse Resp B/P (MAP) Pulse Ox O2 Delivery O2 Flow Rate FiO2 08/21/17 14:03 98.2 66 16 147/68 (94) 100 08/21/17 08:00 98.8 64 20 136/41 (72) 100 08/21/17 03:00 98.7 55 16 152/51 (84) 100 08/21/17 02:00 56 08/21/17 01:00 54 08/21/17 00:00 56 08/20/17 23:00 54 08/20/17 23:00 98.7 55 16 137/55 (82) 99 08/20/17 22:00 54 08/20/17 21:00 54 08/20/17 20:00 62 08/20/17 20:00 98.7 57 16 144/57 (86) 91 08/20/17 19:00 58 I/O 08/20/17 08/20/17 08/20/17 08/21/17 08/21/17 08/21/17 07:00 15:00 23:00 07:00 15:00 23:00 Intake Total 240 ml Output Total 650 ml 325 ml Balance -650 ml -85 ml Intake Oral 240 ml Output Urine Total 650 ml 325 ml Result Diagram: 08/21/17 0453 08/21/17 0453 A/P Problem List: (1) ESRD (end stage renal disease) on dialysis ICD Code: N18.6 - End stage renal disease; Z99.2 - Dependence on renal dialysis (2) Fluid overload ICD Code: E87.70 - Fluid overload, unspecified (3) Diabetes ICD Code: E11.9 - Diabetes Status: Chronic (4) Hyperlipidemia ICD Code: E78.5 - Hyperlipidemia Status: Chronic (5) Chest pain ICD Code: R07.9 - Chest pain Status: Acute (6) Elevated troponin I level ICD Code: R74.8 - Abnormal levels of other serum enzymes Christ Delgado MD Aug 21, 2017 16:53
--- NOTE | 2017-08-21 18:17 | RADRPT ---
EXAM DATE/TIME: 08/21/2017 15:18 [facility] COMPARISON: No previous studies available for comparison. INDICATIONS : Bilateral arm pain. MEDICAL HISTORY : Hypertension. Gastroesophageal reflux disease. Renal calculi. Renal failure, stage 3. Dialysis. Arthr itis. Hepatitis. Anemia. MRSA. SURGICAL HISTORY : Left hip surgery. Left knee surgery. Back surgery. Bilateral toes amputated. ENCOUNTER: Initial ACUITY: 1 day PAIN SCORE: 0/10 LOCATION: Bilateral arms. FINDINGS: RIGHT UPPER EXTREMITY: There are abnormal intraluminal echoes within the cephalic vein in the proximal and mid aspects. This vessel demonstrates lack of normal blood flow and compression. The remaining veins of the right uppe r extremity are patent including the internal jugular vein.. LEFT UPPER EXTREMITY: There is occlusive thrombus within the distal aspect of the left basilic vein. The remaining veins of the left upper extremity are patent including the left internal jugular vein. Limited evaluation of the left fistula was performed and it demonstrates blood flow. CONCLUSION: 1. There is thrombus within the mid and proximal aspect of the right cephalic vein. 2. There is occlusive thrombus within the distal left basilic vein. Bautista Hernandez MD on August 21, 2017 at 18:13 Board Certified Radiologist. This report was verified electronically.
[2017-08-21] MEDS: HEPARIN SODIUM - IV 10,000 UNITS/10 ML VIAL PRN (19:17)
[2017-08-21] MEDS: EPOETIN ALFA 10,000 UNITS/ML VIAL IV PUSH PRN (19:17)
[2017-08-21] MEDS: SODIUM CHLOR 0.9% 1000 ML INJ 1,000 ML OTHER PRN (19:17)
[2017-08-21] MEDS: ATORVASTATIN 20 MG TAB PO SCH (21:43)
[2017-08-22] VITALS (26 sets, daily range): BP systolic 128–145; BP diastolic 56–70; PULSE 58–70; RESP 16–18; TEMP 97.5–98.6; O2SAT 96–100
[2017-08-22] MEDS: MORPHINE SULFATE 2 MG/ML INJ IV PUSH PRN ×5 (03:58→22:02)
[2017-08-22] MEDS: ENALAPRIL MALEATE 10 MG TAB PO SCH (08:10)
[2017-08-22] MEDS: cloNIDine HCL 0.2 MG TAB PO SCH ×2 (08:10→20:26)
[2017-08-22] MEDS: PHENYTOIN SODIUM 100 MG CAP PO SCH ×3 (08:10→17:20)
[2017-08-22] MEDS: GABAPENTIN 300 MG CAP PO SCH ×2 (08:10→20:26)
[2017-08-22] MEDS: TICAGRELOR 90 MG TAB PO SCH ×2 (08:11→20:26)
[2017-08-22] MEDS: METOPROLOL SUCCINATE 50 MG EXTENDED RELEASE TAB PO SCH (08:11)
[2017-08-22] MEDS: CALCIUM ACETATE 667 MG CAP PO SCH ×3 (08:11→17:20)
[2017-08-22] MEDS: PANTOPRAZOLE SOD 40 MG DELAYED RELEASE TAB PO SCH (08:11)
[2017-08-22] MEDS: ASPIRIN 81 MG CHEW TAB PO SCH (08:11)
[2017-08-22] MEDS: HEPARIN SODIUM - SQ 10,000 UNITS/ML VIAL SQ SCH ×2 (08:12→20:27)
[2017-08-22] MEDS: FUROSEMIDE 40 MG/4 ML VIAL IV PUSH SCH ×2 (08:12→17:21)
[2017-08-22] MEDS: SODIUM CHLORIDE 0.9% FLUSH 10 ML FLUSH IV FLUSH SCH ×2 (08:13→20:27)
[2017-08-22] MEDS: COLLAGENASE OINT 30 GM TUBE TOPICAL SCH (08:13)
[2017-08-22] MEDS: INSULIN ASPART SUPPLEMENTAL SCALE SQ SCH ×4 (08:13→20:44)
[2017-08-22] MEDS: INSULIN DETEMIR 100 UNITS/ML VIAL SQ SCH (08:13)
--- NOTE | 2017-08-22 11:54 | PD.CARD.PN ---
Subjective Subjective Remarks sharp pleuritic SSCP unchanged Objective Medications Current Medications Medications (Trade) Dose Ordered Sig/[place] Route Start Time Stop Time Status Last Admin (NS Flush) 2 ml UNSCH PRN IVF 08/16/17 17:00 08/19/17 00:38 (Lipitor) 20 mg HS PO 08/16/17 21:00 08/21/17 21:43 (Neurontin) 300 mg BID PO 08/16/17 21:00 08/22/17 08:10 (Toprol Xl) 50 mg DAILY PO 08/17/17 09:00 08/22/17 08:11 (Nitrostat Sl) 0.4 mg Q5M PRN SL 08/16/17 21:30 08/17/17 10:12 (D50w (Vial) Inj) 50 ml UNSCH PRN IV PUSH 08/17/17 07:45 (Glucagon Inj) 1 mg UNSCH PRN OTHER 08/17/17 07:45 (NovoLOG SUPPLEMENTAL SCALE) 1 ACHS SLIDING SCALE SQ 08/17/17 08:00 08/22/17 11:34 (Morphine Inj) 2 mg Q4H PRN IV PUSH 08/17/17 08:30 08/22/17 09:11 (Protonix) 40 mg DAILY PO 08/17/17 09:00 08/22/17 08:11 (Phoslo) 1,334 mg TID PO 08/17/17 09:00 08/22/17 11:33 (Santyl Oint) 1 applic DAILY TOPICAL 08/17/17 09:00 08/22/17 08:13 (Levemir Inj) 34 units DAILY SQ 08/17/17 09:00 08/22/17 08:13 (Dilantin) 100 mg TID PO 08/17/17 09:00 08/22/17 11:33 (Heparin Inj) 5,000 units Q12HR SQ 08/17/17 09:00 08/22/17 08:12 (Lasix Inj) 40 mg BID@ IV PUSH 08/17/17 18:00 08/22/17 08:12 (Vasotec) 10 mg DAILY PO 08/17/17 12:30 08/22/17 08:10 (Catapres) 0.2 mg Q12HR PO 08/17/17 21:00 08/22/17 08:10 Sodium Chloride 1,000 ml @ 0 mls/hr Q0M PRN OTHER 08/17/17 14:19 08/21/17 19:17 (Heparin Inj) 8,000 units UNSCH PRN IV FLUSH 08/17/17 14:30 Sodium Chloride 1,000 ml @ 200 mls/hr Q5H PRN IV 08/17/17 14:19 Sodium Chloride 1,000 ml @ 0 mls/hr Q0M PRN OTHER 08/17/17 14:19 (Mannitol Inj) 12.5 gm UNSCH PRN IV 08/17/17 14:30 Albumin Human 100 ml @ 60 mls/hr UNSCH PRN IV 08/17/17 14:30 (NS Flush) 5 ml UNSCH PRN IV FLUSH 08/17/17 14:30 (Heparin Inj) UNSCH PRN .XX 08/17/17 14:30 08/21/17 19:17 (Gentamicin Inj) 20 mg UNSCH PRN OTHER 08/17/17 14:30 08/19/17 17:00 (Zofran Inj) 4 mg UNSCH PRN IV PUSH 08/17/17 14:30 (Tylenol) 650 mg UNSCH PRN PO 08/17/17 14:30 (Benadryl) 25 mg UNSCH PRN PO 08/17/17 14:30 (Nitrostat Sl) 0.4 mg UNSCH PRN SL 08/17/17 14:30 (Catapres) 0.1 mg UNSCH PRN PO 08/17/17 14:30 (Epogen Inj) 6,000 units UNSCH PRN IV PUSH 08/17/17 14:30 08/21/17 19:17 (Gelfoam 12 Mm/7 Mm Top) 1 foam UNSCH PRN TOP 08/17/17 14:30 (Benadryl) 50 mg VENEER LAYER PO 08/19/17 15:30 08/23/17 15:29 (Valium) 10 mg VENEER LAYER PO 08/19/17 15:30 08/23/17 15:29 08/20/17 15:16 (Versed Inj) 1 mg VENEER LAYER IV PUSH 08/19/17 15:30 08/23/17 15:29 (NS Flush) 2 ml UNSCH PRN IV FLUSH 08/20/17 18:45 (NS Flush) 2 ml BID IV FLUSH 08/20/17 21:00 08/22/17 08:13 (Aspirin Chew) 81 mg DAILY PO 08/21/17 09:00 08/22/17 08:11 (Brilinta) 90 mg BID PO 08/21/17 09:00 08/22/17 08:11 Vital Signs / I&O Vital Signs Date Time Temp Pulse Resp B/P (MAP) Pulse Ox O2 Delivery O2 Flow Rate FiO2 08/22/17 09:58 20 08/22/17 09:00 66 08/22/17 08:00 66 08/22/17 08:00 98.6 67 16 130/65 (86) 98 08/22/17 07:00 66 08/22/17 06:00 64 08/22/17 05:00 66 08/22/17 04:01 70 18 129/62 (84) 97 08/22/17 04:00 66 08/22/17 03:00 66 08/22/17 02:00 66 08/22/17 01:00 66 08/22/17 00:00 68 08/21/17 23:55 98.6 70 16 159/68 (98) 96 08/21/17 23:00 68 08/21/17 22:00 76 08/21/17 21:32 21 08/21/17 21:00 64 08/21/17 20:15 67 08/21/17 20:15 67 16 108/46 (66) 96 08/21/17 14:03 98.2 66 16 147/68 (94) 100 08/21/17 14:00 62 08/21/17 13:00 74 I/O 08/21/17 08/21/17 08/21/17 08/22/17 08/22/17 08/22/17 07:00 15:00 23:00 07:00 15:00 23:00 Intake Total 240 ml 740 ml 400 ml Output Total 325 ml 6740 ml 300 ml Balance -85 ml -6000 ml 100 ml Intake Oral 240 ml 740 ml 400 ml Output Urine Total 325 ml 740 ml 300 ml Hemodialysis 6000 ml # Bowel Movements 0 Physical Exam Obese, alert, NAD Chest CTA Slight tenderness left lower chest CV S1S2 RRR right groin OK Ext: no significant edema Assessment and Plan Problem List: (1) ESRD (end stage renal disease) on dialysis ICD Codes: N18.6 - End stage renal disease; Z99.2 - Dependence on renal dialysis (2) Elevated troponin I level ICD Codes: R74.8 - Abnormal levels of other serum enzymes (3) Stented coronary artery ICD Codes: Z95.5 - Presence of coronary angioplasty implant and graft (4) Pleuritic chest pain ICD Codes: R07.81 - Pleurodynia Plan: Check Pulmonary CTA (5) 3-vessel coronary artery disease ICD Codes: I25.10 - Atherosclerotic heart disease of [place] coronary artery without angina pectoris Assessment and Plan If CTA positive add Eliquis 10 bid x 7d, then 5 bid and DC ASA. If CTA negative , consider short course of steroids. From cardiac perspective not much else to do. I will be OOT this week. Please call [facility] if cardiology questions. Ganga Rizo MD Aug 22, 2017 11:54
--- NOTE | 2017-08-22 13:38 | HHI.NPPN ---
Subjective History of Present Illness 62-year-old male known to me from before with history of hypertension, diabetes mellitus, hyperlipidemia, gastroesophageal reflux disease, seizure disorder, end-stage renal disease on hemodialysis three times per week, history of chronic anemia who presented to the hospital with complaint of shortness of breath and chest pain. I was called to see the patient for the management of dialysis. Additional Remarks Patient is alert, has CP Review of Systems Respiratory Lungs: SOB Cardiovascular Cardiac: Chest Pain Objective Data Data Vital Signs Date Time Temp Pulse Resp B/P (MAP) Pulse Ox O2 Delivery O2 Flow Rate FiO2 08/22/17 11:00 61 08/22/17 11:00 97.5 64 16 128/56 (80) 96 08/22/17 10:00 61 08/22/17 09:58 20 08/22/17 09:00 66 08/22/17 08:00 66 08/22/17 08:00 98.6 67 16 130/65 (86) 98 08/22/17 07:00 66 08/22/17 06:00 64 08/22/17 05:00 66 08/22/17 04:01 70 18 129/62 (84) 97 08/22/17 04:00 66 08/22/17 03:00 66 08/22/17 02:00 66 08/22/17 01:00 66 08/22/17 00:00 68 08/21/17 23:55 98.6 70 16 159/68 (98) 96 08/21/17 23:00 68 08/21/17 22:00 76 08/21/17 21:32 21 08/21/17 21:00 64 08/21/17 20:15 67 08/21/17 20:15 67 16 108/46 (66) 96 08/21/17 14:03 98.2 66 16 147/68 (94) 100 08/21/17 14:00 62 -: 08/21/17 0453 08/21/17 0453 Physical Exam General Appearance: No Acute Distress, Comfortable Eyes Eye Exam: Pupils Equal Throat Throat Exam: Oral Mucosa [place] & Moist Pulmonary Resp Exam: Breath Sounds Equal, No Distress, Decreased Bases Cardiology CV Exam: Regular, Normal Sinus Rhythm Gastrointestinal/Abdomen GI Exam: Soft, Non-Tender, Bowel Sounds Present Extremeties Extremities Exam: Moderate Edema Neurologic Neuro Exam: Alert, Awake, Oriented Psychiatric Psych Exam: Appropriate Responses Assessment/Plan Assessment Summary: Anemia of CKD, Fluid/Volume Overload, Hypertension, End Stage Renal Disease Problem List: (1) Anemia ICD Codes: D64.9 - Anemia Status: Acute (2) Anxiety ICD Codes: F41.9 - Anxiety Status: Acute (3) Diabetes ICD Codes: E11.9 - Diabetes Status: Chronic (4) Elevated troponin I level ICD Codes: R74.8 - Abnormal levels of other serum enzymes (5) Atypical chest pain ICD Codes: R07.89 - Other chest pain (6) ESRD (end stage renal disease) on dialysis ICD Codes: N18.6 - End stage renal disease; Z99.2 - Dependence on renal dialysis Plan Patient has ESRD on hemodialysis He is on Wednesday, and Wednesday schedule His heart catheterization showed multivessel disease with left anterior descending stent, obtuse marginal and proximal right coronary artery disease was treated Continue to monitor he is on anticoagulation aspirin and Brilinta HD tolerating yesterday 6 L UF CP CTA Chest ordered to r/o PE Need HD tomorrow left message Dr. Alvarado to follow Adamaris Chacon MD Aug 22, 2017 13:38
[2017-08-22] MEDS ORDERED: KETOROLAC TROMETHAMINE 30 MG/ML (IVP) VIAL IV PUSH ONE (14:30)
[2017-08-22] MEDS ORDERED: methylPREDNISolone SOD SUCC 125 MG/2 ML VIAL IV PUSH ONE (15:00)
[2017-08-22] MEDS ORDERED: IOHEXOL 350 MG/ML 10 ML VIAL (for RAD DIAG) IVCONTRAST ONE (15:42)
--- NOTE | 2017-08-22 15:49 | RADRPT ---
EXAM DATE/TIME: 08/22/2017 15:25 [facility] COMPARISON: No previous studies available for comparison. INDICATIONS : Substernal chest pain for one week. IV CONTRAST: 66 cc Omnipaque 350 (iohexol) IV RADIATION DOSE: 22.97 CTDIvol (mGy) ; Patient body habitus MEDICAL HISTORY : diabetes, hypertension SURGICAL HISTORY : Cholecystectomy. ENCOUNTER: Initial ACUITY: 1 week PAIN SCALE: 6/10 LOCATION: substernal chest TECHNIQUE: Volumetric scanning of the chest was performed using a pulmonary embolism protocol MIP images were re constructed. Using automated exposure control and adjustment of the mA and/or kV according to patien t size, radiation dose was kept as low as reasonably achievable to obtain optimal diagnostic quality images. DICOM format image data is available electronically for review and comparison. Follow-up recommendations for detected pulmonary nodules are based at a minimum on nodule size and pa tient risk factors according to Fleischner Society Guidelines. FINDINGS: PULMONARY ARTERIES: No filling defects are seen in the pulmonary arteries through the segmental level. LUNGS: There is no consolidation or pneumothorax . No concerning pulmonary nodule is visualized. Mild bibas ilar passive atelectasis PLEURAE: Moderate sized bilateral pleural effusions MEDIASTINUM: There is good visualization of the great vessels of the middle mediastinum. No evidence of mediastin al or hilar adenopathy/mass. MUSCULOSKELETAL: Within normal limits for patient age. MISCELLANEOUS: The visualized upper abdominal organs demonstrate no acute abnormality. CONCLUSION: Moderate-sized bilateral pleural effusions. No evidence of pulmonary embolism. Bryan Flaherty MD on August 22, 2017 at 15:47 Board Certified Radiologist. This report was verified electronically.
[2017-08-22] MEDS: ATORVASTATIN 20 MG TAB PO SCH (20:26)
--- NOTE | 2017-08-22 23:50 | HHI.PR ---
Objective Vitals Vital Signs Date Time Temp Pulse Resp B/P (MAP) Pulse Ox O2 Delivery O2 Flow Rate FiO2 08/22/17 18:15 20 08/22/17 18:00 60 08/22/17 17:00 58 08/22/17 16:00 67 08/22/17 15:00 59 08/22/17 15:00 98.0 62 18 133/60 (84) 99 08/22/17 14:00 58 08/22/17 13:00 64 08/22/17 12:00 62 08/22/17 11:00 61 08/22/17 11:00 97.5 64 16 128/56 (80) 96 08/22/17 10:00 61 08/22/17 09:00 66 08/22/17 08:00 66 08/22/17 08:00 98.6 67 16 130/65 (86) 98 08/22/17 07:00 66 08/22/17 06:00 64 08/22/17 05:00 66 08/22/17 04:01 70 18 129/62 (84) 97 08/22/17 04:00 66 08/22/17 03:00 66 08/22/17 02:00 66 08/22/17 01:00 66 08/22/17 00:00 68 08/21/17 23:55 98.6 70 16 159/68 (98) 96 I/O 08/22/17 08/22/17 08/22/17 08/23/17 08/23/17 08/23/17 07:00 15:00 23:00 07:00 15:00 23:00 Intake Total 400 ml 600 ml Output Total 300 ml 540 ml Balance 100 ml 60 ml Intake Oral 400 ml 600 ml Output Urine Total 300 ml 540 ml # Bowel Movements 0 Result Diagram: 08/21/17 0453 08/21/17 0453 A/P Problem List: (1) ESRD (end stage renal disease) on dialysis ICD Code: N18.6 - End stage renal disease; Z99.2 - Dependence on renal dialysis (2) Fluid overload ICD Code: E87.70 - Fluid overload, unspecified (3) Diabetes ICD Code: E11.9 - Diabetes Status: Chronic (4) Hyperlipidemia ICD Code: E78.5 - Hyperlipidemia Status: Chronic (5) Chest pain ICD Code: R07.9 - Chest pain Status: Acute (6) Elevated troponin I level ICD Code: R74.8 - Abnormal levels of other serum enzymes Christ Delgado MD Aug 22, 2017 23:50
[2017-08-23] VITALS (18 sets, daily range): BP systolic 127–175; BP diastolic 56–89; PULSE 61–78; RESP 16–18; TEMP 97.6–98.4; O2SAT 92–100
[2017-08-23] MEDS: MORPHINE SULFATE 2 MG/ML INJ IV PUSH PRN ×4 (03:35→17:55)
[2017-08-23] MEDS ORDERED: IOHEXOL 350 MG/ML 50 ML BTL (for Cath Lab) OTHER ONE (07:31)
[2017-08-23] MEDS ORDERED: IOHEXOL 350 MG/ML 100 ML BTL (for Cath Lab) OTHER ONE (07:31)
--- NOTE | 2017-08-23 08:09 | PD.CARD.PN ---
Subjective Subjective Remarks sharp pleuritic SSCP unchanged Objective Medications Current Medications Medications (Trade) Dose Ordered Sig/[place] Route Start Time Stop Time Status Last Admin (NS Flush) 2 ml UNSCH PRN IVF 08/16/17 17:00 08/19/17 00:38 (Lipitor) 20 mg HS PO 08/16/17 21:00 08/22/17 20:26 (Neurontin) 300 mg BID PO 08/16/17 21:00 08/22/17 20:26 (Toprol Xl) 50 mg DAILY PO 08/17/17 09:00 08/22/17 08:11 (Nitrostat Sl) 0.4 mg Q5M PRN SL 08/16/17 21:30 08/17/17 10:12 (D50w (Vial) Inj) 50 ml UNSCH PRN IV PUSH 08/17/17 07:45 (Glucagon Inj) 1 mg UNSCH PRN OTHER 08/17/17 07:45 (NovoLOG SUPPLEMENTAL SCALE) 1 ACHS SLIDING SCALE SQ 08/17/17 08:00 08/22/17 20:44 (Morphine Inj) 2 mg Q4H PRN IV PUSH 08/17/17 08:30 08/23/17 03:35 (Protonix) 40 mg DAILY PO 08/17/17 09:00 08/22/17 08:11 (Phoslo) 1,334 mg TID PO 08/17/17 09:00 08/22/17 17:20 (Santyl Oint) 1 applic DAILY TOPICAL 08/17/17 09:00 08/22/17 08:13 (Levemir Inj) 34 units DAILY SQ 08/17/17 09:00 08/22/17 08:13 (Dilantin) 100 mg TID PO 08/17/17 09:00 08/22/17 17:20 (Heparin Inj) 5,000 units Q12HR SQ 08/17/17 09:00 08/22/17 20:27 (Lasix Inj) 40 mg BID@ IV PUSH 08/17/17 18:00 08/22/17 17:21 (Vasotec) 10 mg DAILY PO 08/17/17 12:30 08/22/17 08:10 (Catapres) 0.2 mg Q12HR PO 08/17/17 21:00 08/22/17 20:26 Sodium Chloride 1,000 ml @ 0 mls/hr Q0M PRN OTHER 08/17/17 14:19 08/21/17 19:17 (Heparin Inj) 8,000 units UNSCH PRN IV FLUSH 08/17/17 14:30 Sodium Chloride 1,000 ml @ 200 mls/hr Q5H PRN IV 08/17/17 14:19 Sodium Chloride 1,000 ml @ 0 mls/hr Q0M PRN OTHER 08/17/17 14:19 (Mannitol Inj) 12.5 gm UNSCH PRN IV 08/17/17 14:30 Albumin Human 100 ml @ 60 mls/hr UNSCH PRN IV 08/17/17 14:30 (NS Flush) 5 ml UNSCH PRN IV FLUSH 08/17/17 14:30 (Heparin Inj) UNSCH PRN .XX 08/17/17 14:30 08/21/17 19:17 (Gentamicin Inj) 20 mg UNSCH PRN OTHER 08/17/17 14:30 08/19/17 17:00 (Zofran Inj) 4 mg UNSCH PRN IV PUSH 08/17/17 14:30 (Tylenol) 650 mg UNSCH PRN PO 08/17/17 14:30 (Benadryl) 25 mg UNSCH PRN PO 08/17/17 14:30 (Nitrostat Sl) 0.4 mg UNSCH PRN SL 08/17/17 14:30 (Catapres) 0.1 mg UNSCH PRN PO 08/17/17 14:30 (Epogen Inj) 6,000 units UNSCH PRN IV PUSH 08/17/17 14:30 08/21/17 19:17 (Gelfoam 12 Mm/7 Mm Top) 1 foam UNSCH PRN TOP 08/17/17 14:30 (Benadryl) 50 mg SQUEEGEER AND FORMER PO 08/19/17 15:30 08/23/17 15:29 (Valium) 10 mg SQUEEGEER AND FORMER PO 08/19/17 15:30 08/23/17 15:29 08/20/17 15:16 (Versed Inj) 1 mg SQUEEGEER AND FORMER IV PUSH 08/19/17 15:30 08/23/17 15:29 (NS Flush) 2 ml UNSCH PRN IV FLUSH 08/20/17 18:45 (NS Flush) 2 ml BID IV FLUSH 08/20/17 21:00 08/22/17 20:27 (Aspirin Chew) 81 mg DAILY PO 08/21/17 09:00 08/22/17 08:11 (Brilinta) 90 mg BID PO 08/21/17 09:00 08/22/17 20:26 Vital Signs / I&O Vital Signs Date Time Temp Pulse Resp B/P (MAP) Pulse Ox O2 Delivery O2 Flow Rate FiO2 08/23/17 05:00 74 08/23/17 04:00 98.0 78 16 172/89 (116) 98 08/23/17 04:00 77 08/23/17 03:00 76 08/23/17 02:00 74 08/23/17 01:00 68 08/23/17 00:00 69 08/23/17 00:00 98.4 68 18 175/88 (117) 100 08/22/17 23:00 64 08/22/17 22:00 60 08/22/17 21:00 61 08/22/17 20:20 98.5 63 18 145/70 (95) 100 08/22/17 20:00 62 08/22/17 19:00 60 08/22/17 18:15 20 08/22/17 18:00 60 08/22/17 17:00 58 08/22/17 16:00 67 08/22/17 15:00 59 08/22/17 15:00 98.0 62 18 133/60 (84) 99 08/22/17 14:00 58 08/22/17 13:00 64 08/22/17 12:00 62 08/22/17 11:00 61 08/22/17 11:00 97.5 64 16 128/56 (80) 96 08/22/17 10:00 61 08/22/17 09:00 66 I/O 08/22/17 08/22/17 08/22/17 08/23/17 08/23/17 08/23/17 06:59 14:59 22:59 06:59 14:59 22:59 Intake Total 400 ml 600 ml 240 ml Output Total 300 ml 540 ml 200 ml Balance 100 ml 60 ml 40 ml Intake Oral 400 ml 600 ml 240 ml Output Urine Total 300 ml 540 ml 200 ml # Bowel Movements 0 Physical Exam Obese, alert, NAD Chest CTA Slight tenderness left lower chest CV S1S2 RRR right groin OK Ext: no significant edema Imaging Last [address] Angiography 08/22/17 0000 Signed Impressions: Service Date/Time: Tuesday, August 22, 2017 15:25 - CONCLUSION: Moderate-sized bilateral pleural effusions. No evidence of pulmonary embolism. Bryan Flaherty MD Assessment and Plan Problem List: (1) ESRD (end stage renal disease) on dialysis ICD Codes: N18.6 - End stage renal disease; Z99.2 - Dependence on renal dialysis (2) Elevated troponin I level ICD Codes: R74.8 - Abnormal levels of other serum enzymes (3) Stented coronary artery ICD Codes: Z95.5 - Presence of coronary angioplasty implant and graft (4) Pleuritic chest pain ICD Codes: R07.81 - Pleurodynia Plan: Most likely musculoskeletal/ costochondritis. Unsafe to add NSAIDS due to conflict with ASA/Brilinta for his stents. Steroids OK. (5) 3-vessel coronary artery disease ICD Codes: I25.10 - Atherosclerotic heart disease of [place] coronary artery without angina pectoris (6) Pleural effusion due to congestive heart failure ICD Codes: I50.9 - Heart failure, unspecified Plan: Needs more aggressive dialysis. Assessment and Plan OK with me to DC after dialysis but dialysis team needs to take more fluid off ( see above). Cont. ASA and Brilinta. F/u with Dr. Porras. Ganga Rizo MD Aug 23, 2017 08:09
[2017-08-23] MEDS: INSULIN ASPART SUPPLEMENTAL SCALE SQ SCH ×3 (09:16→17:45)
[2017-08-23] MEDS: SODIUM CHLORIDE 0.9% FLUSH 10 ML FLUSH IV FLUSH SCH (09:16)
[2017-08-23] MEDS: PANTOPRAZOLE SOD 40 MG DELAYED RELEASE TAB PO SCH (09:17)
[2017-08-23] MEDS: ENALAPRIL MALEATE 10 MG TAB PO SCH (09:17)
[2017-08-23] MEDS: FUROSEMIDE 40 MG/4 ML VIAL IV PUSH SCH ×2 (09:17→17:55)
[2017-08-23] MEDS: METOPROLOL SUCCINATE 50 MG EXTENDED RELEASE TAB PO SCH (09:17)
[2017-08-23] MEDS: PHENYTOIN SODIUM 100 MG CAP PO SCH ×3 (09:17→17:54)
[2017-08-23] MEDS: TICAGRELOR 90 MG TAB PO SCH (09:17)
[2017-08-23] MEDS: ASPIRIN 81 MG CHEW TAB PO SCH (09:18)
[2017-08-23] MEDS: CALCIUM ACETATE 667 MG CAP PO SCH ×3 (09:18→17:54)
[2017-08-23] MEDS: GABAPENTIN 300 MG CAP PO SCH (09:18)
[2017-08-23] MEDS: HEPARIN SODIUM - SQ 10,000 UNITS/ML VIAL SQ SCH (09:18)
[2017-08-23] MEDS: cloNIDine HCL 0.2 MG TAB PO SCH (09:18)
[2017-08-23] MEDS ORDERED: PRED5PAK PO (09:18)
[2017-08-23] MEDS: COLLAGENASE OINT 30 GM TUBE TOPICAL SCH (09:19)
[2017-08-23] MEDS: INSULIN DETEMIR 100 UNITS/ML VIAL SQ SCH (09:19)
--- NOTE | 2017-08-23 14:47 | HHI.NPPN ---
Subjective History of Present Illness 62-year-old male known to me from before with history of hypertension, diabetes mellitus, hyperlipidemia, gastroesophageal reflux disease, seizure disorder, end-stage renal disease on hemodialysis three times per week, history of chronic anemia who presented to the hospital with complaint of shortness of breath and chest pain. I was called to see the patient for the management of dialysis. Additional Remarks Patient is alert, seen in AM, now has no chest pain. Review of Systems Respiratory Lungs: SOB Cardiovascular Cardiac: Chest Pain Objective Data Data Vital Signs Date Time Temp Pulse Resp B/P (MAP) Pulse Ox O2 Delivery O2 Flow Rate FiO2 08/23/17 13:42 18 08/23/17 12:45 97.6 66 18 127/65 (85) 99 08/23/17 12:00 66 08/23/17 11:00 66 08/23/17 10:00 68 08/23/17 09:47 92 21 08/23/17 09:10 98.2 72 18 141/78 (99) 99 08/23/17 09:00 71 08/23/17 08:00 68 08/23/17 07:00 65 08/23/17 05:00 74 08/23/17 04:00 98.0 78 16 172/89 (116) 98 08/23/17 04:00 77 08/23/17 03:00 76 08/23/17 02:00 74 08/23/17 01:00 68 08/23/17 00:00 69 08/23/17 00:00 98.4 68 18 175/88 (117) 100 08/22/17 23:00 64 08/22/17 22:00 60 08/22/17 21:00 61 08/22/17 20:20 98.5 63 18 145/70 (95) 100 08/22/17 20:00 62 08/22/17 19:00 60 08/22/17 18:00 60 08/22/17 17:00 58 08/22/17 16:00 67 08/22/17 15:00 59 08/22/17 15:00 98.0 62 18 133/60 (84) 99 -: 08/21/17 0453 08/21/17 0453 Physical Exam General Appearance: No Acute Distress, Comfortable Eyes Eye Exam: Pupils Equal Throat Throat Exam: Oral Mucosa [place] & Moist Pulmonary Resp Exam: Breath Sounds Equal, No Distress, Decreased Bases Cardiology CV Exam: Regular, Normal Sinus Rhythm Gastrointestinal/Abdomen GI Exam: Soft, Non-Tender, Bowel Sounds Present Extremeties Extremities Exam: Moderate Edema Neurologic Neuro Exam: Alert, Awake, Oriented Psychiatric Psych Exam: Appropriate Responses Assessment/Plan Assessment Summary: Anemia of CKD, Fluid/Volume Overload, Hypertension, End Stage Renal Disease Problem List: (1) Anemia ICD Codes: D64.9 - Anemia Status: Acute (2) Anxiety ICD Codes: F41.9 - Anxiety Status: Acute (3) Diabetes ICD Codes: E11.9 - Diabetes Status: Chronic (4) Elevated troponin I level ICD Codes: R74.8 - Abnormal levels of other serum enzymes (5) Atypical chest pain ICD Codes: R07.89 - Other chest pain (6) ESRD (end stage renal disease) on dialysis ICD Codes: N18.6 - End stage renal disease; Z99.2 - Dependence on renal dialysis Plan Patient has ESRD on hemodialysis He is on Wednesday, and Wednesday schedule His heart catheterization showed multivessel disease with left anterior descending stent, obtuse marginal and proximal right coronary artery disease was treated Continue to monitor he is on anticoagulation aspirin and Brilinta CTA was done, noted. HD today as got contrast. If D/C to get next HD on . Told to watch fluid and salt intake. Patient want to go home. Caroline Alvarado MD Aug 23, 2017 14:47
== END 2017-08-23 19:05 | disposition home health service (06) | DRG 248 ==
LOC: PHED 16:28 → PHEDA 18:59 → PHICU 21:13 → PH3A 08-19 09:34 → HCIS 08-20 12:18
PROVIDERS: ADMIT Hospitalist; ATTEND Hospitalist
PROC: 5A1D70Z Performance of Urinary Filtration, Intermittent, Less than 6 Hours Per Day (ICD-10-PCS; 2017-08-17)
PROC: 4A023N7 Measurement of Cardiac Sampling and Pressure, Left Heart, Percutaneous Approach (ICD-10-PCS; 2017-08-20)
PROC: B2151ZZ Fluoroscopy of Left Heart using Low Osmolar Contrast (ICD-10-PCS; 2017-08-20)
PROC: B2111ZZ Fluoroscopy of Multiple Coronary Arteries using Low Osmolar Contrast (ICD-10-PCS; 2017-08-20)
PROC: B41F1ZZ Fluoroscopy of Right Lower Extremity Arteries using Low Osmolar Contrast (ICD-10-PCS; 2017-08-20)
PROC: 02723FZ Dilation of Coronary Artery, Three Arteries with Three Intraluminal Devices, Percutaneous Approach (ICD-10-PCS; principal; 2017-08-20 15:00)
DX: I13.2 Hypertensive heart and chronic kidney disease with heart failure and with stage 5 chronic kidney disease, or end stage renal disease (principal); I50.21 Acute systolic (congestive) heart failure; N18.6 End stage renal disease; E11.22 Type 2 diabetes mellitus with diabetic chronic kidney disease; K31.84 Gastroparesis; E11.43 Type 2 diabetes mellitus with diabetic autonomic (poly)neuropathy; I25.82 Chronic total occlusion of coronary artery; Z96.642 Presence of left artificial hip joint; Z96.652 Presence of left artificial knee joint; D63.1 Anemia in chronic kidney disease; E78.5 Hyperlipidemia, unspecified; F41.9 Anxiety disorder, unspecified; F32.9 Major depressive disorder, single episode, unspecified; G89.29 Other chronic pain; M19.90 Unspecified osteoarthritis, unspecified site; K21.9 Gastro-esophageal reflux disease without esophagitis; G40.909 Epilepsy, unspecified, not intractable, without status epilepticus; B19.20 Unspecified viral hepatitis C without hepatic coma; M54.9 Dorsalgia, unspecified; M94.0 Chondrocostal junction syndrome [Tietze]; I25.10 Atherosclerotic heart disease of native coronary artery without angina pectoris; Z79.4 Long term (current) use of insulin; Z86.73 Personal history of transient ischemic attack (TIA), and cerebral infarction without residual deficits; Z99.2 Dependence on renal dialysis
CPT/HCPCS: 36600; 71045; 71275; 76937; 78452; 80048; 80053; 80061; 80074; 80185; 82550; 82552; 82805; 82948; 83690; 83880; 84100; 84484; 85002; 85025; 85610; 85730; 90935; 92928; 92929; 93005; 93017; 93306; 93458; 93970; 96374; 96375; A9502; C1725; C1760; C1769; C1874; C1887; C1893; G0269; J0583; J1580; J1644; J1815; J1940; J2250; J2270; J2405; J2785; J2930; J3010; J7030; Q4081; Q9967

== ENCOUNTER 2017-11-03 14:12 | Inpatient (IN) | payer OTHER, MEDICARE ==
[2017-11-03] VITALS (8 sets, daily range): BP systolic 158–218; BP diastolic 54–84; PULSE 58–65; RESP 16–20; TEMP 96.5–97.6; O2SAT 98–99
[~2017-11-03] VITALS: Ht 188 cm; Wt 127.4 kg
[~2017-11-03 14:12] MED LIST changes: +ASPI81 PO; +BRIL90TA PO; +ENAL10TA PO; -PLAV75TA29 PO; +PRED5PAK PO
[2017-11-03] MEDS ORDERED: CALCIUM GLUCONATE 10% 1 GM/10 ML VIAL SLOW IVP ONE (14:45)
[2017-11-03] MEDS ORDERED: RESP: ALBUTEROL 2.5 MG/3 ML NEB (SCH) INH ONE (14:45)
[2017-11-03] MEDS ORDERED: MORPHINE SULFATE 4 MG/ML INJ IV PUSH ONE (14:45)
[2017-11-03] MEDS ORDERED: SODIUM POLYSTYRENE SULFONATE SUSP 15 GM/60 ML CUP PO ONE ×2 (14:45→17:00)
--- NOTE | 2017-11-03 14:48 | PD ---
HPI Chief Complaint: Respiratory Symptoms Time Seen by Provider: 14:44 Travel History International Travel<30 days: No Contact w/Intl Traveler<30days: No Traveled to known affect area: No History of Present Illness HPI 62-year-old male complains of shortness of breath and chest pain. The patient is end-stage renal disease on dialysis Wednesday. He reports at the dialysis center they were unable to access his left AV fistula and he was told to return on . Overnight the patient became increasingly short of breath until today. It is continuous and moderately severe. The patient also reports left upper extremity swelling. Patient describes a pressure-like sensation about the chest. PFSH Past Medical History Anemia: Yes Arthritis: Yes Autoimmune Disease: No Blood Disorders: No Anxiety: Yes Depression: Yes Heart Rhythm Problems: No Cancer: No Cardiovascular Problems: Yes (STENTS) High Cholesterol: No Chemotherapy: No Chest Pain: No Congestive Heart Failure: No Diabetes: Yes (TYPE 2) Dialysis: Yes (, wed) Diminished Hearing: No Endocrine: Yes Gastrointestinal Disorders: Yes GERD: Yes Genitourinary: No Hepatitis: Yes Hiatal Hernia: No Hypertension: Yes Immune Disorder: No Kidney Stones: Yes Musculoskeletal: Yes Neurologic: Yes ("ALTERED MENTAL STATUS"/ACUTE ENCEPHALOPATHY) Psychiatric: No Reproductive: No Respiratory: No Myocardial Infarction: No Radiation Therapy: No Renal Failure: Yes (STAGE 3 KIDNEY FAILURE) Thyroid Disease: No Ulcer: No Past Surgical History Abdominal Surgery: No AICD: No Appendectomy: No Arteriovenous Shunt: No Body Medical Devices: vas cath right chest Cardiac Surgery: No Cholecystectomy: Yes Ear Surgery: No Endocrine Surgery: No Eye Surgery: No Genitourinary Surgery: No Gynecologic Surgery: No Insulin Pump: No Joint Replacement: Yes (LEFT KNEE AND HIP) Neurologic Surgery: No Oral Surgery: No Pacemaker: No Thoracic Surgery: No Other Surgery: Yes Social History Alcohol Use: No Tobacco Use: No ( ) Substance Use: Yes (Meth) Allergies-Medications (Allergen,Severity, Reaction): Coded Allergies: *MDRO Multi-Drug Resistant Organism (Verified Allergy, Unknown, 11/03/17) 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 Reported Meds & Prescriptions Reported Meds & Active Scripts Active Tgt Aspirin (Aspirin) 81 Mg Chw 81 Mg PO DAILY Enalapril (Enalapril Maleate) 10 Mg Tab 10 Mg PO DAILY Brilinta (Ticagrelor) 90 Mg Tab 90 Mg PO BID Reported Santyl Topical (Collagenase) 250 Unit/Gm Oint 1 Applic TOPICAL DAILY Catapres (Clonidine) 0.2 Mg Tab 0.2 Mg PO TID PRN Gabapentin 300 Mg Cap 300 Mg PO BID Dilantin (Phenytoin Extended) 100 Mg Cap 100 Mg PO TID Calcium Acetate (Phosphate Binder) 667 Mg Cap 1,334 Mg PO TID WITH MEALS Lasix (Furosemide) 40 Mg Tab 40 Mg PO DAILY Lipitor (Atorvastatin Calcium) 20 Mg Tab 20 Mg PO HS Metoprolol Succinate ER 24 HR (Metoprolol Succinate) 50 Mg Tab 50 Mg PO DAILY Lantus Inj (Insulin Glargine) 100 Unit/Ml Inj 34 Units SQ DAILY Review of Systems Except as stated in HPI: all other systems reviewed are Neg General / Constitutional: No: Fever Physical Exam Narrative GENERAL: 52-year-old male well-nourished well-developed no acute distress Vital Signs Date Time Temp Pulse Resp B/P (MAP) Pulse Ox O2 Delivery O2 Flow Rate FiO2 11/03/17 14:15 97.6 65 18 218/84 (128) 99 SKIN: Warm and dry. HEAD: Atraumatic. Normocephalic. EYES: Pupils equal and round. No scleral icterus. No injection or drainage. ENT: No nasal bleeding or discharge. Mucous membranes pink and moist. NECK: Trachea midline. No JVD. CARDIOVASCULAR: Heart rate is about 65. Regular rhythm. RESPIRATORY: Breath sounds are intact bilaterally. GASTROINTESTINAL: Abdomen soft, non-tender, nondistended. Hepatic and splenic margins not palpable. MUSCULOSKELETAL: Swelling of the LUE noted. NEUROLOGICAL: Awake and alert. No obvious cranial nerve deficits. Motor grossly within normal limits. Five out of 5 muscle strength in the arms and legs. Normal speech. PSYCHIATRIC: Appropriate mood and affect; insight and judgment normal. Data Data Last Documented VS Vital Signs Date Time Temp Pulse Resp B/P (MAP) Pulse Ox O2 Delivery O2 Flow Rate FiO2 11/03/17 14:15 97.6 65 18 218/84 (128) 99 Orders Orders Electrocardiogram (11/03/17 14:18) Electrocardiogram (11/03/17 14:44) Complete Blood Count With Diff (11/03/17 14:44) Comprehensive Metabolic Panel (11/03/17 14:44) Magnesium (Mg) (11/03/17 14:44) Potassium, Serum (K) (11/03/17 17:44) Iv Access Insert/Monitor (11/03/17 14:44) Ecg Monitoring (11/03/17 14:44) Oximetry (11/03/17 14:44) Chest, Single Ap (11/03/17 14:44) Oxygen Administration (11/03/17 14:44) Calcium Gluconate Inj (Calcium Gluconate (11/03/17 14:45) Sodium Polysty Sulfate Liq (Kayexalate L (11/03/17 14:45) Albuterol Neb (Albuterol Neb) (11/03/17 14:45) Morphine Inj (Morphine Inj) (11/03/17 14:45) MDM Medical Decision Making Medical Screen Exam Complete: Yes Emergency Medical Condition: Yes Medical Record Reviewed: Yes Differential Diagnosis hyperk, volume overload, pna Narrative Course Pt seen at 240pm by undersigned. Work up started. Calcium gluconate, Kayexylate and albuterol started. D/w oncoming provider at 3:00pm. Erickson Amaya MD November 03, 2017 14:48
--- NOTE | 2017-11-03 15:42 | PD ---
HPI Chief Complaint: Respiratory Symptoms Time Seen by Provider: 15:33 Travel History International Travel<30 days: No Contact w/Intl Traveler<30days: No Traveled to known affect area: No History of Present Illness HPI 62-year-old male complains of chest pain, shortness of breath swelling of the left arm weakness and numbness of the left arm. Patient has history of end- stage renal disease on dialysis. Patient has dialysis Wednesday and Wednesday weekly. 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 Patient states that he had left arm AV fistula done about 6 months ago. Patient also has Vas-Cath right upper chest for the past 6 months. Vas-Cath was removed 5 days ago. Patient has dialysis on a left AV fistula for the past 2 weeks. Patient states that the dialysis was done partially from the left arm yesterday because of the difficulty in access and was bleeding. Patient states that he has increasing pain swelling and numbness and weakness of left arm since then. Patient states that he started having left-sided aching pain chest pain and shortness of breath since yesterday also. Patient denies any coughing congestion fever chills. Patient has history of hypertension, diabetes, hyperlipidemia, CAD status post stent placement and seizure. Patient also has history of chronic anemia. Patient was admitted to [facility] August 2017 for chest pain. Cardiology consultation obtained and patient had a cardiac cath with multiple vessel stenting however patient continued to have chest pain. Patient is on aspirin 81 mg daily and Brilinta. PFSH Past Medical History Anemia: Yes Arthritis: Yes Autoimmune Disease: No Blood Disorders: No Anxiety: Yes Depression: Yes Heart Rhythm Problems: No Cancer: No Cardiovascular Problems: Yes (STENTS) High Cholesterol: No Chemotherapy: No Chest Pain: No Congestive Heart Failure: No Diabetes: Yes (TYPE 2) Patient Takes Glucophage: No Dialysis: Yes (, , wed) Diminished Hearing: No Endocrine: Yes Gastrointestinal Disorders: Yes GERD: Yes Genitourinary: No Hepatitis: Yes Hiatal Hernia: No Hypertension: Yes Immune Disorder: No Kidney Stones: Yes Musculoskeletal: Yes Neurologic: Yes ("ALTERED MENTAL STATUS"/ACUTE ENCEPHALOPATHY) Psychiatric: No Reproductive: No Respiratory: No Myocardial Infarction: No Radiation Therapy: No Renal Failure: Yes (STAGE 3 KIDNEY FAILURE) Thyroid Disease: No Ulcer: No Tetanus Vaccination: < 5 Years Influenza Vaccination: Yes Past Surgical History Abdominal Surgery: No AICD: No Appendectomy: No Arteriovenous Shunt: No Body Medical Devices: vas cath right chest Cardiac Surgery: No Cholecystectomy: Yes Ear Surgery: No Endocrine Surgery: No Eye Surgery: No Genitourinary Surgery: No Gynecologic Surgery: No Insulin Pump: No Joint Replacement: Yes (LEFT KNEE AND HIP) Neurologic Surgery: No Oral Surgery: No Pacemaker: No Thoracic Surgery: No Other Surgery: Yes Social History Alcohol Use: No Tobacco Use: Yes (chews every once in awhile ) Substance Use: No (HX of Meth) Allergies-Medications (Allergen,Severity, Reaction): Coded Allergies: *MDRO Multi-Drug Resistant Organism (Verified Allergy, Unknown, 11/03/17) 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 Reported Meds & Prescriptions Reported Meds & Active Scripts Active Tgt Aspirin (Aspirin) 81 Mg Chw 81 Mg PO DAILY Enalapril (Enalapril Maleate) 10 Mg Tab 10 Mg PO DAILY Brilinta (Ticagrelor) 90 Mg Tab 90 Mg PO BID Reported Santyl Topical (Collagenase) 250 Unit/Gm Oint 1 Applic TOPICAL DAILY Catapres (Clonidine) 0.2 Mg Tab 0.2 Mg PO TID PRN Gabapentin 300 Mg Cap 300 Mg PO BID Dilantin (Phenytoin Extended) 100 Mg Cap 100 Mg PO TID Calcium Acetate (Phosphate Binder) 667 Mg Cap 1,334 Mg PO TID WITH MEALS Lasix (Furosemide) 40 Mg Tab 40 Mg PO DAILY Lipitor (Atorvastatin Calcium) 20 Mg Tab 20 Mg PO HS Metoprolol Succinate ER 24 HR (Metoprolol Succinate) 50 Mg Tab 50 Mg PO DAILY Lantus Inj (Insulin Glargine) 100 Unit/Ml Inj 34 Units SQ DAILY Physical Exam Narrative GENERAL: Well-nourished, well-developed patient. SKIN: Focused skin assessment warm/dry. HEAD: Normocephalic. EYES: No scleral icterus. No injection or drainage. NECK: Supple, trachea midline. No JVD or lymphadenopathy. CARDIOVASCULAR: Regular rate and rhythm without murmurs, gallops, or rubs. RESPIRATORY: Breath sounds equal bilaterally. No accessory muscle use. Breath sounds clear after the treatment. GASTROINTESTINAL: Abdomen soft, non-tender, nondistended. MUSCULOSKELETAL: Patient has diffuse soft tissues tenderness left arm. Patient has mild thrills over the fistula area. Mild decrease in light touch sensation and mild weakness on left forearm. Good capillary refill. BACK: Nontender without obvious deformity. No CVA tenderness. Neurologic exam normal. Data Data Last Documented VS Vital Signs Date Time Temp Pulse Resp B/P (MAP) Pulse Ox O2 Delivery O2 Flow Rate FiO2 11/03/17 17:15 16 11/03/17 16:49 62 158/76 (103) 99 Room Air 11/03/17 14:15 97.6 Orders Orders Electrocardiogram (11/03/17 14:44) Complete Blood Count With Diff (11/03/17 14:44) Comprehensive Metabolic Panel (11/03/17 14:44) Magnesium (Mg) (11/03/17 14:44) Potassium, Serum (K) (11/03/17 17:44) Iv Access Insert/Monitor (11/03/17 14:44) Ecg Monitoring (11/03/17 14:44) Oximetry (11/03/17 14:44) Chest, Single Ap (11/03/17 14:44) Oxygen Administration (11/03/17 14:44) Calcium Gluconate Inj (Calcium Gluconate (11/03/17 14:45) Sodium Polysty Sulfate Liq (Kayexalate L (11/03/17 14:45) Albuterol Neb (Albuterol Neb) (11/03/17 14:45) Morphine Inj (Morphine Inj) (11/03/17 14:45) Creatine Kinase (Cpk) (11/03/17 15:22) Troponin I (11/03/17 15:22) Prothrombin Time / Inr (Pt) (11/03/17 15:22) Act Partial Throm Time (Ptt) (11/03/17 15:22) Phosphorus (Po4) (11/03/17 15:22) Us Arm Venous Doppler (11/03/17 15:22) Phenytoin (Dilantin) (11/03/17 15:39) Vascular Access Team Consult/P PRN (11/03/17 15:43) Vascular Poc Ultrasound (11/03/17 ) Acetamin-Hydrocod 325-5 Mg ([place] 5-325 (11/03/17 16:00) Sodium Bicarbonate 8.4% Inj (Sodium Bica (11/03/17 17:00) Sodium Polysty Sulfate Liq (Kayexalate L (11/03/17 17:00) Blood Flow Rate (11/03/17 16:48) Dialysate Flow Rate (11/03/17 16:48) Dialyzer (11/03/17 16:48) Concentrate (11/03/17 16:48) Acid Concentrate (11/03/17 16:48) Length Of Dialysis (11/03/17 16:48) Frequency Of Dialysis (11/03/17 16:48) Dialysis Obtain (11/03/17 16:48) Needle Size (11/03/17 16:48) Dialysis Schedule (11/03/17 16:48) Resp Oxygen Tomasz C Titrat 1-4 L (11/03/17 ) Dialysis Weight (11/03/17 16:48) ^ Obtain As Needed (11/03/17 16:48) Sodium Chlor 0.9% 1000 Ml Inj (Ns 1000 M (11/03/17 16:48) Heparin Inj (Heparin Inj) (11/03/17 17:00) Sodium Chlor 0.9% 1000 Ml Inj (Ns 1000 M (11/03/17 16:48) Sodium Chlor 0.9% 1000 Ml Inj (Ns 1000 M (11/03/17 16:48) Mannitol Inj (Mannitol Inj) (11/03/17 17:00) Albumin 25% Inj (Albumin 25% Inj) (11/03/17 17:00) Sodium Chloride 0.9% Flush (Ns Flush) (11/03/17 17:00) Heparin Inj (Heparin Inj) (11/03/17 17:00) Gentamicin Inj (Gentamicin Inj) (11/03/17 17:00) Ondansetron Inj (Zofran Inj) (11/03/17 17:00) Acetaminophen (Tylenol) (11/03/17 17:00) Diphenhydramine (Benadryl) (11/03/17 17:00) Nitroglycerin Sl (Nitrostat Sl) (11/03/17 17:00) Clonidine (Catapres) (11/03/17 17:00) Epoetin Stefano Inj (Epogen Inj) (11/03/17 17:00) Gelatin 12 Mm/7 Mm Top (Gelfoam 12 Mm/7 (11/03/17 17:00) Consult Nephrology (11/03/17 ) (Hub Use Only)Inp Phy Cons/Ref (11/03/17 ) Admit To Inpatient (11/03/17 ) Vital Signs (Adult) Q4H (11/03/17 18:24) Activity Bed Rest (11/03/17 18:24) Sodium Chloride 0.9% Flush (Ns Flush) (11/03/17 18:30) Sodium Chloride 0.9% Flush (Ns Flush) (11/03/17 21:00) Acetaminophen (Tylenol) (11/03/17 18:30) Ondansetron Inj (Zofran Inj) (11/03/17 18:30) Basic Metabolic Panel (Bmp) (11/04/17 06:00) Complete Blood Count With Diff (11/04/17 06:00) Zolpidem (Ambien) (11/03/17 18:30) Naloxone Inj (Narcan Inj) (11/03/17 18:30) Bisacodyl Supp (Dulcolax Supp) (11/03/17 18:30) Admit Order (Ed Use Only) (11/03/17 18:25) Labs Laboratory Tests Test 11/03/17 15:50 White Blood Count 11.7 TH/MM3 Red Blood Count 3.12 MIL/MM3 Hemoglobin 9.9 GM/DL Hematocrit 28.3 % Mean Corpuscular Volume 90.8 FL Mean Corpuscular Hemoglobin 31.8 PG Mean Corpuscular Hemoglobin Concent 35.1 % Red Cell Distribution Width 15.2 % Platelet Count 171 TH/MM3 Mean Platelet Volume 7.8 FL Neutrophils (%) (Auto) 75.3 % Lymphocytes (%) (Auto) 9.9 % Monocytes (%) (Auto) 7.5 % Eosinophils (%) (Auto) 3.6 % Basophils (%) (Auto) 3.7 % Neutrophils # (Auto) 8.8 TH/MM3 Lymphocytes # (Auto) 1.2 TH/MM3 Monocytes # (Auto) 0.9 TH/MM3 Eosinophils # (Auto) 0.4 TH/MM3 Basophils # (Auto) 0.4 TH/MM3 CBC Comment DIFF FINAL Differential Comment Prothrombin Time 10.5 SEC Prothromb Time International Ratio 1.0 RATIO Activated Partial Thromboplast Time 25.9 SEC Blood Urea Nitrogen 69 MG/DL Creatinine 4.80 MG/DL Random Glucose 114 MG/DL Total Protein 7.2 GM/DL Albumin 3.5 GM/DL Calcium Level 8.6 MG/DL Magnesium Level 2.2 MG/DL Alkaline Phosphatase 155 U/L Aspartate Amino Transf (AST/SGOT) 18 U/L Alanine Aminotransferase (ALT/SGPT) 30 U/L Total Bilirubin 0.7 MG/DL Sodium Level 136 MEQ/L Potassium Level 5.8 MEQ/L Chloride Level 107 MEQ/L Carbon Dioxide Level 20.5 MEQ/L Anion Gap 9 MEQ/L Estimat Glomerular Filtration Rate 12 ML/MIN Phosphorus Level 4.8 MG/DL Total Creatine Kinase 79 U/L Troponin I LESS THAN 0.02 NG/ML Phenytoin (Dilantin) Level 2.4 MCG/ML MDM Medical Decision Making Medical Screen Exam Complete: Yes Emergency Medical Condition: Yes Differential Diagnosis Differential diagnosis including electrolyte abnormality, angina, NC, PE, pneumothorax. Narrative Course 62-year-old male with shortness of breath and chest pain. Patient has history of end-stage renal disease on dialysis. Dr. Alvarado, came to see the patient in the ED and will correct the hyperkalemia and arrange for dialysis. Diagnosis Primary Impression: Chest pain Qualified Codes: R07.9 - Chest pain, unspecified Additional Impressions: Hyperkalemia End stage renal disease on dialysis Admitting Information Admitting Physician Requests: Admit Pradeep Ventura MD November 03, 2017 15:42
--- NOTE | 2017-11-03 15:50 | RADRPT ---
EXAM DATE/TIME: 11/03/2017 15:19 [facility] COMPARISON: CHEST SINGLE AP, August 16, 2017, 17:05. INDICATIONS : Chest pain, shortness of breath MEDICAL HISTORY : Gastroesophageal reflux disease. Renal failure, chronic. Renal calculi. Hypertension.MRSA MDRO SURGICAL HISTORY : Cholecystectomy. Left hip replacement. Left knee replacement. ENCOUNTER: Initial ACUITY: 1 day PAIN SCORE: 8/10 LOCATION: Bilateral chest FINDINGS: A single view of the chest demonstrates the lungs to be symmetrically aerated without evidence of mas s, infiltrate or effusion. The cardiomediastinal contours are unremarkable. Multiple old healed left -sided rib fractures. CONCLUSION: No acute pulmonary infiltrates. Gideon Arnold MD on November 03, 2017 at 15:48 Board Certified Radiologist. This report was verified electronically.
[2017-11-03 15:59] LABS: AUTOMATED NEUTROPHIL # 8.8 TH/MM3 (1.8-7.7); BASOPHIL # 0.4 TH/MM3 (0-0.2); BASOPHIL % 3.7 % (0.0-2.0); EOSINOPHIL # 0.4 TH/MM3 (0-0.4); EOSINOPHIL % 3.6 % (0.0-4.0); HEMATOCRIT 28.3 % (39.0-51.0); HEMOGLOBIN 9.9 GM/DL (13.0-17.0); LYMPH % 9.9 % (9.0-44.0); LYMPHOCYTE # 1.2 TH/MM3 (1.0-4.8); MEAN CELL VOLUME 90.8 FL (80.0-100.0); MEAN CORPUSCULAR HEMOGLOBIN 31.8 PG (27.0-34.0); MEAN CORPUSCULAR HGB CONC 35.1 % (32.0-36.0); MEAN PLATELET VOLUME 7.8 FL (7.0-11.0); MONO % 7.5 % (0.0-8.0); MONOCYTE # 0.9 TH/MM3 (0-0.9); NEUT % 75.3 % (16.0-70.0); PLATELET COUNT 171 TH/MM3 (150-450); RED BLOOD COUNT 3.12 MIL/MM3 (4.50-5.90); RED CELL DISTRIBUTION WIDTH 15.2 % (11.6-17.2); WHITE BLOOD COUNT 11.7 TH/MM3 (4.0-11.0)
[2017-11-03] MEDS ORDERED: ACETAMINOPHEN/HYDROcodone 325 MG/5 MG TAB PO ONE (16:00)
[2017-11-03 16:08] LABS: CHLORIDE 107 MEQ/L (98-107); SODIUM (NA) 136 MEQ/L (136-145)
[2017-11-03 16:12] LABS: CALCIUM 8.6 MG/DL (8.5-10.1)
[2017-11-03 16:13] LABS: ALBUMIN 3.5 GM/DL (3.4-5.0); BICARBONATE 20.5 MEQ/L (21.0-32.0); BLOOD UREA NITROGEN 69 MG/DL (7-18); GLUCOSE,RANDOM 114 MG/DL (74-106); MAGNESIUM 2.2 MG/DL (1.5-2.5)
[2017-11-03 16:15] LABS: PHOSPHORUS 4.8 MG/DL (2.5-4.9)
[2017-11-03 16:16] LABS: ALT (GPT) 30 U/L (12-78); AST (GOT) 18 U/L (15-37); GLOMERULAR FILTRATION RATE 12 ML/MIN (>89)
[2017-11-03 16:17] LABS: TOTAL BILIRUBIN ADULT 0.7 MG/DL (0.2-1.0)
[2017-11-03 16:18] LABS: TOTAL PROTEIN 7.2 GM/DL (6.4-8.2)
[2017-11-03 16:19] LABS: ALKALINE PHOSPHATASE 155 U/L (45-117); TROPONIN I LESS THAN 0.02 NG/ML (0.02-0.05)
[2017-11-03 16:22] LABS: PROTHROMBIN TIME - PATIENT 10.5 SEC (9.8-11.6)
[2017-11-03] MEDS ORDERED: SODIUM CHLOR 0.9% 1000 ML INJ 1,000 ML IV PRN (16:48)
[2017-11-03] MEDS ORDERED: SODIUM CHLOR 0.9% 1000 ML INJ 1,000 ML OTHER PRN ×2 (16:48)
[2017-11-03] MEDS ORDERED: ALBUMIN 25% INJ 100 ML IV PRN (17:00)
[2017-11-03] MEDS ORDERED: cloNIDine HCL 0.1 MG TAB PO PRN (17:00)
[2017-11-03] MEDS ORDERED: NITROGLYCERIN 0.4 MG SL 25 TABS/BTL SL PRN (17:00)
[2017-11-03] MEDS ORDERED: SODIUM BICARBONATE 8.4% INJ 50 MEQ/50 ML SYR IV PUSH ONE (17:00)
[2017-11-03] MEDS ORDERED: diphenhydrAMINE HCL 25 MG CAP PO PRN (17:00)
[2017-11-03] MEDS ORDERED: ONDANSETRON HCL 4 MG/2 ML VIAL IV PUSH PRN (17:00)
[2017-11-03] MEDS ORDERED: ACETAMINOPHEN 325 MG TAB PO PRN ×2 (17:00→18:30)
[2017-11-03] MEDS ORDERED: MANNITOL 12.5 GM/50 ML VIAL IV PRN (17:00)
[2017-11-03] MEDS ORDERED: HEPARIN SODIUM - IV 10,000 UNITS/10 ML VIAL IV FLUSH PRN (17:00)
[2017-11-03] MEDS ORDERED: SODIUM CHLORIDE 0.9% FLUSH 10 ML FLUSH IV FLUSH PRN ×2 (17:00→18:30)
[2017-11-03] MEDS ORDERED: GELATIN 12 MM/7 MM FOAM TOP PRN (17:00)
--- NOTE | 2017-11-03 17:46 | RADRPT ---
EXAM DATE/TIME: 11/03/2017 16:07 [facility] COMPARISON: US ARM BILATERAL VENOUS DOPPLER, August 21, 2017, 15:18. INDICATIONS : Left arm swelling. MEDICAL HISTORY : Gastroesophageal reflux disease. Renal failure, chronic. Renal calculi. Hypertension. Dialysis. Arthr itis. Diabetes. Depresssion. Anxiety. Substance use. Hepatitis. Blood transfusion. Anemia. MRSA. Ant icoagulant therapy, Heparin. SURGICAL HISTORY : AVF, left arm. Cholecystectomy. Left hip replacement. Left knee replacement. Back surgery. Bilateral toe amputations. ENCOUNTER: Subsequent ACUITY: 2 day PAIN SCORE: 9/10 LOCATION: Left arm. FINDINGS: Previous examination demonstrated occlusive thrombus in the basilic vein. On the current exam, occlus danial thrombus is seen in the mid to peripheral basilic vein. There is spontaneous flow documented in t he brachial, basilic, cephalic, axillary, and subclavian veins. The vessels are compressible and aug mentation response is documented. No filling defects are seen. The flow is phasic with respiration. Direction of flow in the jugular vein is caudal. CONCLUSION: 1. Carlos Victoria MD on November 03, 2017 at 17:19 Board Certified Radiologist. This report was verified electronically.
--- NOTE | 2017-11-03 18:02 | PD.CONS ---
[facility] Service Nephrology Consult Requested By Reason for Consult End stage renal disease on hemodialysis Primary Care Physician Bridger Ludwig MD History of Present Illness Patient is a 62-year-old male with history of hypertension, diabetes mellitus, hyperlipidemia, gastroesophageal reflux disease, seizure disorder, end-stage renal disease on hemodialysis three times per week, history of chronic anemia, and coronary artery disease with stent placement. . Presented to the hospital with complaint of shortness of breath, chest pain, and pain at AVF site. Nephrology was consulted for management of hemodialysis. Patients normal hemodialysis days are Wednesday, and Wednesday. He had his last dialysis done on Wednesday. He went to dialysis yesterday and was not able to get dialysis secondary to unsuccessful cannulation and hematoma formation. Perma cath was removed 5 days ago. Ultrasound done of left arm and results are pending. Patient was found to be hyperkalemic with a potassium level of 5.8, Kayexalate, sodium bicarbonate, and calcium gluconate ordered. (Christa Velasquez) Review of Systems Respiratory: COMPLAINS OF: Shortness of breath, DENIES: Cough, Sputum production Cardiovascular: COMPLAINS OF: Chest pain, Lower Extremity Edema Gastrointestinal: DENIES: Constipation, Nausea, Vomiting Genitourinary: DENIES: Urinary frequency, Urgency, Hematuria, Dysuria ( Christa Velasquez) Past Family Social History Allergies: Coded Allergies: *MDRO Multi-Drug Resistant Organism (Verified Allergy, Unknown, 11/03/17) 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 Past Medical History 1. Hypertension 2. Diabetes mellitus 3. Chronic anemia 4. Hyperlipidemia 5. Gastroesophageal reflux disease 6. Seizure disorder 7. End-stage renal disease on hemodialysis 8. Coronary artery disease Past Surgical History 1. Cholecystectomy, 2. Left knee and hip surgery, 3. History of Perma-Cath placement and removal 4. AV fistula surgery. 5. Stent placement Active Ordered Medications Current Medications Medications (Trade) Dose Ordered Sig/Madina Route Start Time Stop Time Status Last Admin Sodium Chloride 1,000 ml @ 0 mls/hr Q0M PRN OTHER 11/03/17 16:48 (Heparin Inj) 8,000 units UNSCH PRN IV FLUSH 11/03/17 17:00 Sodium Chloride 1,000 ml @ 200 mls/hr Q5H PRN IV 11/03/17 16:48 Sodium Chloride 1,000 ml @ 0 mls/hr Q0M PRN OTHER 11/03/17 16:48 (Mannitol Inj) 12.5 gm UNSCH PRN IV 11/03/17 17:00 Albumin Human 100 ml @ 60 mls/hr UNSCH PRN IV 11/03/17 17:00 (NS Flush) 5 ml UNSCH PRN IV FLUSH 11/03/17 17:00 (Heparin Inj) UNSCH PRN .XX 11/03/17 17:00 (Gentamicin Inj) 20 mg UNSCH PRN OTHER 11/03/17 17:00 (Zofran Inj) 4 mg UNSCH PRN IV PUSH 11/03/17 17:00 (Tylenol) 650 mg UNSCH PRN PO 11/03/17 17:00 (Benadryl) 25 mg UNSCH PRN PO 11/03/17 17:00 (Nitrostat Sl) 0.4 mg UNSCH PRN SL 11/03/17 17:00 (Catapres) 0.1 mg UNSCH PRN PO 11/03/17 17:00 (Epogen Inj) 6,000 units UNSCH PRN IV PUSH 11/03/17 17:00 (Gelfoam 12 Mm/7 Mm Top) 1 foam UNSCH PRN TOP 11/03/17 17:00 Social History Denies alcohol use Uses chews (Christa Velasquez) Physical Exam Vital Signs Vital Signs Date Time Temp Pulse Resp B/P (MAP) Pulse Ox O2 Delivery O2 Flow Rate FiO2 11/03/17 17:15 16 11/03/17 16:49 62 16 158/76 (103) 99 Room Air 11/03/17 16:38 99 Room Air 11/03/17 16:38 18 99 Room Air 11/03/17 15:00 18 99 Room Air 11/03/17 14:15 97.6 65 18 218/84 (128) 99 Physical Exam GENERAL: Alert and oriented SKIN: Warm and dry. Left arm with AVF swelling noted HEAD: Normocephalic. EYES: No scleral icterus. No injection or drainage. NECK: Supple, trachea midline. No JVD or lymphadenopathy. CARDIOVASCULAR: Regular rate and rhythm without murmurs, gallops, or rubs. RESPIRATORY: Breath sounds equal bilaterally. No accessory muscle use. GASTROINTESTINAL: Abdomen soft, non-tender, nondistended. MUSCULOSKELETAL: No cyanosis, or edema. BACK: Nontender without obvious deformity. No CVA tenderness. Laboratory Laboratory Tests Test 11/03/17 15:50 White Blood Count 11.7 Red Blood Count 3.12 Hemoglobin 9.9 Hematocrit 28.3 Mean Corpuscular Volume 90.8 Mean Corpuscular Hemoglobin 31.8 Mean Corpuscular Hemoglobin Concent 35.1 Red Cell Distribution Width 15.2 Platelet Count 171 Mean Platelet Volume 7.8 Neutrophils (%) (Auto) 75.3 Lymphocytes (%) (Auto) 9.9 Monocytes (%) (Auto) 7.5 Eosinophils (%) (Auto) 3.6 Basophils (%) (Auto) 3.7 Neutrophils # (Auto) 8.8 Lymphocytes # (Auto) 1.2 Monocytes # (Auto) 0.9 Eosinophils # (Auto) 0.4 Basophils # (Auto) 0.4 CBC Comment DIFF FINAL Differential Comment Prothrombin Time 10.5 Prothromb Time International Ratio 1.0 Activated Partial Thromboplast Time 25.9 Blood Urea Nitrogen 69 Creatinine 4.80 Random Glucose 114 Total Protein 7.2 Albumin 3.5 Calcium Level 8.6 Magnesium Level 2.2 Alkaline Phosphatase 155 Aspartate Amino Transf (AST/SGOT) 18 Alanine Aminotransferase (ALT/SGPT) 30 Total Bilirubin 0.7 Sodium Level 136 Potassium Level 5.8 Chloride Level 107 Carbon Dioxide Level 20.5 Anion Gap 9 Estimat Glomerular Filtration Rate 12 Phosphorus Level 4.8 Total Creatine Kinase 79 Troponin I LESS THAN 0.02 Phenytoin (Dilantin) Level 2.4 (Christa Velasquez) Result Diagram: 11/03/17 1550 11/03/17 1550 Imaging Last Impressions Chest X-Ray 11/03/17 1444 Signed Impressions: Service Date/Time: Friday, November 03, 2017 15:19 - CONCLUSION: No acute pulmonary infiltrates. Gideon Arnold MD (Christa Velasquez) Assessment and Plan Problem List: (1) ESRD (end stage renal disease) on dialysis ICD Codes: N18.6 - End stage renal disease; Z99.2 - Dependence on renal dialysis Plan: End stage renal disease dialysis on Wednesday, ,and Wednesday. Left arm AVF with hematoma present. Plan Epogen with dialysis Continue PhosLo with meals Hyperkalemia treated with Kayexalate, sodium bicarbonate, and calcium gluconate. Dialysis planned for tomorrow orders placed will use AVF fistula as long as patent. (2) Diabetes ICD Codes: E11.9 - Diabetes Status: Chronic Plan: Maintain blood sugar between 140mg/dl to 180 mg/dl (3) Hypertension ICD Codes: I10 - Essential (primary) hypertension Plan: Continue home medications (Christa Velasquez) Problem List: (1) ESRD (end stage renal disease) on dialysis ICD Codes: N18.6 - End stage renal disease; Z99.2 - Dependence on renal dialysis Plan: End stage renal disease dialysis on Wednesday, ,and Wednesday. Left arm AVF with hematoma present. Plan Epogen with dialysis Continue PhosLo with meals Hyperkalemia treated with Kayexalate, sodium bicarbonate, and calcium gluconate. Dialysis planned for tomorrow orders placed will use AVF fistula as long as patent. Patient seen and examined, agree with above. Has left arm edema and mild pain at AVF site. Develop hematoma yesterday. K is 5.8, given Kayexalate, and IV NaHco3. O2 sat. 99% on room air. HD tomorrow, to give time for arm swelling to decrease. (2) Diabetes ICD Codes: E11.9 - Diabetes Status: Chronic Plan: Maintain blood sugar between 140mg/dl to 180 mg/dl (3) Hypertension ICD Codes: I10 - Essential (primary) hypertension Plan: Continue home medications (Caroline Alvarado MD) Christa Velasquez November 03, 2017 18:02 Caroline Alvarado MD November 03, 2017 18:40
[2017-11-03] MEDS ORDERED: ONDANSETRON HCL 4 MG/2 ML VIAL IVP PRN (18:30)
[2017-11-03] MEDS ORDERED: BISACODYL 10 MG SUPP RECTAL PRN (18:30)
[2017-11-03] MEDS ORDERED: GLUCAGON 1 MG/ML VIAL OTHER PRN (18:30)
[2017-11-03] MEDS ORDERED: DEXTROSE 50% IN WATER 50 ML VIAL(D50) IV PUSH PRN (18:30)
[2017-11-03] MEDS ORDERED: cloNIDine HCL 0.2 MG TAB PO PRN (18:30)
[2017-11-03] MEDS ORDERED: NALOXONE HCL 0.4 MG/ML AMP IV PUSH PRN (18:30)
[2017-11-03] MEDS: INSULIN ASPART SUPPLEMENTAL SCALE SQ SCH (21:00)
[2017-11-03] MEDS: SODIUM CHLORIDE 0.9% FLUSH 10 ML FLUSH IV FLUSH SCH (22:09)
[2017-11-03] MEDS: ATORVASTATIN 20 MG TAB PO SCH (22:10)
[2017-11-03] MEDS: ZOLPIDEM TARTRATE 5 MG TAB PO PRN (22:20)
[2017-11-03] MEDS: TICAGRELOR 90 MG TAB PO SCH (22:29)
[2017-11-03] MEDS: MORPHINE SULFATE 4 MG/ML INJ IV PRN (23:04)
[2017-11-04] VITALS (9 sets, daily range): BP systolic 126–163; BP diastolic 53–80; PULSE 55–75; RESP 18–20; TEMP 96–97.9; O2SAT 95–99
[2017-11-04] MEDS: MORPHINE SULFATE 4 MG/ML INJ IV PRN ×5 (02:08→17:00)
[2017-11-04] MEDS: INSULIN ASPART SUPPLEMENTAL SCALE SQ SCH ×4 (07:39→21:31)
[2017-11-04] MEDS: METOPROLOL SUCCINATE 50 MG EXTENDED RELEASE TAB PO SCH (08:37)
[2017-11-04] MEDS: ENALAPRIL MALEATE 10 MG TAB PO SCH (08:38)
[2017-11-04] MEDS: INSULIN DETEMIR 100 UNITS/ML VIAL SQ SCH (08:38)
--- NOTE | 2017-11-04 08:54 | HHI.HP ---
[facility] Service [facility] Primary Care Physician Bridger Ludwig MD Admission Diagnosis Chest pain. Hyperkalemia. End-stage renal disease on dialysis. Diagnoses: Chief Complaint: Left upper arm weakness and numbness Shortness of breath Chest pain Travel History International Travel<30 Days: No Contact w/Intl Traveler <30 Da: No Traveled to Known Affected Are: No History of Present Illness This is a pleasant 62-year-old male patient with a known medical history of end- stage renal disease, CAD with cardiac stents, diabetes and hypertension who presented to the ED with complaints of left upper arm weakness and numbness as well as shortness of breath and associated chest pain. Patient states that while at rest on Wednesday night he developed a midsternal chest pressure that was characterized as tight and rated 9 out of 10 on pain scale, patient states the pain has been constant in nature worse with deep breathing. Denies any associated nausea, vomiting, diaphoresis. Does not know of any alleviating factors. Patient also noticed left upper arm swelling on Wednesday after dialysis. Supposedly dialysis was again able to access left upper arm AV fistula and subsequently patient noticed swelling. Patient did have an upper right chest Vas-Cath this was removed 5 days ago. Patient follows with Dr. Alvarado in the outpatient setting. Denies any recent illness including fever, chills, cough, abdominal pain, nausea, vomiting, diarrhea or dysuria. Patient was admitted to the hospital in August of this year for chest pain, underwent a cardiac catheterization with multiple vessel stenting. Patient is on Brilinta and aspirin. Follows with Dr. Mahoney in the outpatient setting. Patient had AV fistula done roughly 7 months ago at [facility]. Review of Systems Constitutional: DENIES: Fatigue, Fever, Chills Eyes: DENIES: Blurred vision, Diplopia Respiratory: DENIES: Sputum production, Shortness of breath Cardiovascular: COMPLAINS OF: Chest pain, DENIES: Palpitations Gastrointestinal: DENIES: Abdominal pain, Black stools, Bloody stools, Constipation, Diarrhea, Nausea, Vomiting Musculoskeletal: DENIES: Joint pain Hematologic/lymphatic: DENIES: Bruising Psychiatric: DENIES: Anxiety Except as stated in HPI: all other systems reviewed are Neg Past Family Social History Past Medical History CAD with history of cardiac stents Anxiety depression Arthritis Hypertension Type 2 diabetes End-stage renal disease on dialysis Wednesday, , Wednesday GERD Past Surgical History Left upper arm AV fistula placement 7 months ago Multiple amputation of his toes Left knee and hip replacement Cholecystectomy Reported Medications Active Tgt Aspirin (Aspirin) 81 Mg Chw 81 Mg PO DAILY Enalapril (Enalapril Maleate) 10 Mg Tab 10 Mg PO DAILY Brilinta (Ticagrelor) 90 Mg Tab 90 Mg PO BID Reported Santyl Topical (Collagenase) 250 Unit/Gm Oint 1 Applic TOPICAL DAILY Catapres (Clonidine) 0.2 Mg Tab 0.2 Mg PO TID PRN Gabapentin 300 Mg Cap 300 Mg PO BID Dilantin (Phenytoin Extended) 100 Mg Cap 100 Mg PO TID Calcium Acetate (Phosphate Binder) 667 Mg Cap 1,334 Mg PO TID WITH MEALS Lasix (Furosemide) 40 Mg Tab 40 Mg PO DAILY Lipitor (Atorvastatin Calcium) 20 Mg Tab 20 Mg PO HS Metoprolol Succinate ER 24 HR (Metoprolol Succinate) 50 Mg Tab 50 Mg PO DAILY Lantus Inj (Insulin Glargine) 100 Unit/Ml Inj 34 Units SQ DAILY Allergies: Coded Allergies: *MDRO Multi-Drug Resistant Organism (Verified Allergy, Unknown, 11/03/17) 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 Active Ordered Medications Current Medications Medications (Trade) Dose Ordered Sig/Madina Route Start Time Stop Time Status Last Admin Sodium Chloride 1,000 ml @ 0 mls/hr Q0M PRN OTHER 11/03/17 16:48 (Heparin Inj) 8,000 units UNSCH PRN IV FLUSH 11/03/17 17:00 Sodium Chloride 1,000 ml @ 200 mls/hr Q5H PRN IV 11/03/17 16:48 Sodium Chloride 1,000 ml @ 0 mls/hr Q0M PRN OTHER 11/03/17 16:48 (Mannitol Inj) 12.5 gm UNSCH PRN IV 11/03/17 17:00 Albumin Human 100 ml @ 60 mls/hr UNSCH PRN IV 11/03/17 17:00 (NS Flush) 5 ml UNSCH PRN IV FLUSH 11/03/17 17:00 (Heparin Inj) UNSCH PRN .XX 11/03/17 17:00 11/04/17 13:38 (Gentamicin Inj) 20 mg UNSCH PRN OTHER 11/03/17 17:00 11/04/17 13:39 (Zofran Inj) 4 mg UNSCH PRN IV PUSH 11/03/17 17:00 (Tylenol) 650 mg UNSCH PRN PO 11/03/17 17:00 (Benadryl) 25 mg UNSCH PRN PO 11/03/17 17:00 (Nitrostat Sl) 0.4 mg UNSCH PRN SL 11/03/17 17:00 (Catapres) 0.1 mg UNSCH PRN PO 11/03/17 17:00 (Epogen Inj) 6,000 units UNSCH PRN IV PUSH 11/03/17 17:00 11/04/17 13:38 (Gelfoam 12 Mm/7 Mm Top) 1 foam UNSCH PRN TOP 11/03/17 17:00 (NS Flush) 2 ml UNSCH PRN IV FLUSH 11/03/17 18:30 (NS Flush) 2 ml BID IV FLUSH 11/03/17 21:00 11/04/17 08:57 (Tylenol) 650 mg Q4H PRN PO 11/03/17 18:30 (Zofran Inj) 4 mg Q6H PRN IVP 11/03/17 18:30 (Ambien) 5 mg HS PRN PO 11/03/17 18:30 11/03/17 22:20 (Narcan Inj) 0.4 mg UNSCH PRN IV PUSH 11/03/17 18:30 (Dulcolax Supp) 10 mg DAILY PRN RECTAL 11/03/17 18:30 (D50w (Vial) Inj) 50 ml UNSCH PRN IV PUSH 11/03/17 18:30 (Glucagon Inj) 1 mg UNSCH PRN OTHER 11/03/17 18:30 (NovoLOG SUPPLEMENTAL SCALE) 1 ACHS SLIDING SCALE SQ 11/03/17 21:00 (Lipitor) 20 mg HS PO 11/03/17 21:00 11/03/17 22:10 (Catapres) 0.2 mg TID PRN PO 11/03/17 18:30 11/03/17 22:20 (Vasotec) 10 mg DAILY PO 11/04/17 09:00 (Lasix) 40 mg DAILY PO 11/04/17 09:00 11/04/17 09:00 (Levemir Inj) 34 units DAILY SQ 11/04/17 09:00 (Toprol Xl) 50 mg DAILY PO 11/04/17 09:00 (Dilantin) 100 mg TID PO 11/04/17 09:00 11/04/17 09:00 (Brilinta) 90 mg BID PO 11/03/17 21:00 Future Hold 11/04/17 09:01 (Morphine Inj) 2 mg Q3H PRN IV 11/03/17 23:00 11/04/17 12:07 (NS Flush) UNSCH PRN IV FLUSH 11/04/17 12:00 (Heparin Inj) UNSCH PRN IV FLUSH 11/04/17 12:00 Family History Denies any significant family medical history Social History Denies any tobacco abuse. Denies any alcohol or illicit drug use. Physical Exam Vital Signs Vital Signs Date Time Temp Pulse Resp B/P (MAP) Pulse Ox O2 Delivery O2 Flow Rate FiO2 11/04/17 08:00 96.4 56 20 144/64 (90) 99 11/04/17 04:00 96.4 55 20 134/59 (84) 98 11/04/17 00:00 97.9 56 18 150/66 (94) 95 11/03/17 23:32 58 11/03/17 22:00 96.5 63 20 184/70 (108) 99 11/03/17 21:11 60 18 178/61 (100) 99 11/03/17 19:00 62 18 98 Room Air 11/03/17 19:00 62 18 171/54 (93) 98 Room Air 11/03/17 19:00 18 11/03/17 17:15 16 11/03/17 16:49 62 16 158/76 (103) 99 Room Air 11/03/17 16:38 99 Room Air 11/03/17 16:38 18 99 Room Air 11/03/17 15:00 18 99 Room Air 11/03/17 14:15 97.6 65 18 218/84 (128) 99 Physical Exam GENERAL: Well-developed, well-nourished obese male patient in NAD. SKIN: Warm and dry. No rash. Significant left upper arm swelling and tightness. HEAD: Normocephalic. Atraumatic. EYES: Pupils equal and round. No scleral icterus. No injection or drainage. ENT: No nasal bleeding or discharge. Mucous membranes pink and moist. NECK: Supple. Trachea midline. CARDIOVASCULAR: Regular rate and rhythm. S1, S2 noted. No murmur appreciated. RESPIRATORY: No accessory muscle use. Clear to auscultation. Breath sounds equal bilaterally. GASTROINTESTINAL: Abdomen soft, non-tender, nondistended. Normoactive bowel sounds x4. MUSCULOSKELETAL: Right hand contractures as well as right elbow contractures. Extremities without clubbing, cyanosis, or edema. NEUROLOGICAL: Awake and alert. No obvious cranial nerve deficits. Motor grossly within normal limits. 5/5 muscle strength in bilateral upper and lower extremities. Normal speech. PSYCHIATRIC: Appropriate mood and affect; insight and judgment normal. Laboratory Laboratory Tests Test 11/03/17 15:50 White Blood Count 11.7 Red Blood Count 3.12 Hemoglobin 9.9 Hematocrit 28.3 Mean Corpuscular Volume 90.8 Mean Corpuscular Hemoglobin 31.8 Mean Corpuscular Hemoglobin Concent 35.1 Red Cell Distribution Width 15.2 Platelet Count 171 Mean Platelet Volume 7.8 Neutrophils (%) (Auto) 75.3 Lymphocytes (%) (Auto) 9.9 Monocytes (%) (Auto) 7.5 Eosinophils (%) (Auto) 3.6 Basophils (%) (Auto) 3.7 Neutrophils # (Auto) 8.8 Lymphocytes # (Auto) 1.2 Monocytes # (Auto) 0.9 Eosinophils # (Auto) 0.4 Basophils # (Auto) 0.4 CBC Comment DIFF FINAL Differential Comment Prothrombin Time 10.5 Prothromb Time International Ratio 1.0 Activated Partial Thromboplast Time 25.9 Blood Urea Nitrogen 69 Creatinine 4.80 Random Glucose 114 Total Protein 7.2 Albumin 3.5 Calcium Level 8.6 Magnesium Level 2.2 Alkaline Phosphatase 155 Aspartate Amino Transf (AST/SGOT) 18 Alanine Aminotransferase (ALT/SGPT) 30 Total Bilirubin 0.7 Sodium Level 136 Potassium Level 5.8 Chloride Level 107 Carbon Dioxide Level 20.5 Anion Gap 9 Estimat Glomerular Filtration Rate 12 Phosphorus Level 4.8 Total Creatine Kinase 79 Troponin I LESS THAN 0.02 Phenytoin (Dilantin) Level 2.4 Result Diagram: 11/03/17 1550 11/03/17 1550 Imaging Last Impressions Catheter Placement X-Ray 11/04/17 0000 Signed Impressions: Service Date/Time: November 11:29 - CONCLUSION: Uncomplicated 14 [place] Vas-Cath placement for hemodialysis as above. Erickson Alexander MD Upper Extremity Ultrasound 11/03/17 1522 Signed Impressions: Service Date/Time: Friday, November 03, 2017 16:07 - CONCLUSION: 1. Carlos Victoria MD Chest X-Ray 11/03/17 1444 Signed Impressions: Service Date/Time: Friday, November 03, 2017 15:19 - CONCLUSION: No acute pulmonary infiltrates. Gideon Anrold MD Septic Shock Reassessment Septic shock perfusion: reassessment completed Caprini VTE Risk Assessment Caprini VTE Risk Assessment: Mod/High Risk (score >= 2) Caprini Risk Assessment Model Point Value = 1 Point Value = 2 Point Value = 3 Point Value = 5 Age 41-60 Minor surgery BMI > 25 kg/m2 Swollen legs Varicose veins or History of unexplained or recurrent spontaneous Oral contraceptives or hormone replacement Sepsis (< 1 month) Serious lung disease, including pneumonia (< 1 month) Abnormal pulmonary function Acute myocardial infarction Congestive heart failure (< 1 month) History of inflammatory bowel disease Medical patient at bed rest Age 61-74 Arthroscopic surgery Major open surgery (> 45 min) Laparoscopic surgery (> 45 min) Malignancy Confined to bed (> 72 hours) Immobilizing plaster cast Central venous access Age >= 75 History of VTE Family history of VTE Factor V Leiden Prothrombin [id number] Lupus anticoagulant Anticardiolipin antibodies Elevated serum homocysteine Heparin-induced thrombocytopenia Other congenital or acquired thrombophilia Stroke (< 1 month) Elective arthroplasty Hip, pelvis, or leg fracture Acute spinal cord injury (< 1 month) Prophylaxis Regimen Total Risk Factor Score Risk Level Prophylaxis Regimen 0-1 Low Early ambulation 2 Moderate Order ONE of the following: *Sequential Compression Device (SCD) *Heparin 5000 units SQ BID 3-4 Higher Order ONE of the following medications: *Heparin 5000 units SQ TID *Enoxaparin/Lovenox 40 mg SQ daily (WT < 150 kg, CrCl > 30 mL/min) *Enoxaparin/Lovenox 30 mg SQ daily (WT < 150 kg, CrCl > 10-29 mL/min) *Enoxaparin/Lovenox 30 mg SQ BID (WT < 150 kg, CrCl > 30 mL/min) AND/OR *Sequential Compression Device (SCD) 5 or more Highest Order ONE of the following medications: *Heparin 5000 units SQ TID (Preferred with Epidurals) *Enoxaparin/Lovenox 40 mg SQ daily (WT < 150 kg, CrCl > 30 mL/min) *Enoxaparin/Lovenox 30 mg SQ daily (WT < 150 kg, CrCl > 10-29 mL/min) *Enoxaparin/Lovenox 30 mg SQ BID (WT < 150 kg, CrCl > 30 mL/min) AND *Sequential Compression Device (SCD) Assessment and Plan Problem List: (1) Chest pain ICD Code: R07.9 - Chest pain Status: Acute Plan: Patient underwent cardiac cath August 2017. Had stent placement at that time. On Brilinta and aspirin. Presents with chest pain. Initial troponin flat. Unable to draw any further labs due to lack of access. A Vas- Cath has been placed. EKGs are performed, reviewed showing no ST changes. Will resume home statin, beta-carrie, clonidine and Vasotec. Consult placed to cardiology, Dr. Mahoney, appreciate input recommendations. Plan for vast cath placement, Brilinta on hold, heparin started. Assist with anticoagulation recommendations. Patient now with left upper extremity occlusive thrombus in the basilic vein. (2) DVT (deep venous thrombosis) ICD Code: I82.409 - Acute embolism and thrombosis of unspecified deep veins of unspecified lower extremity Plan: Patient presented with significant left upper extremity swelling and tightness. A left upper extremity ultrasound was done showing an occlusive thrombus in the basilic vein. Occlusive thrombus is seen in the mid to peripheral basilic vein. Patient is on Brilinta and aspirin at home. Will hold Brilinta for plan for PermCath. Placed on heparin. Cardiology recommendations appreciated. (3) End stage renal disease on dialysis ICD Code: N18.6 - End stage renal disease; Z99.2 - Dependence on renal dialysis Status: Acute Plan: Consult placed to nephrology, appreciate input recommendations. Vas- Cath placed today. Dialysis today, Wednesday and Danette. Monitor BMP. (4) Hyperkalemia ICD Code: E87.5 - Hyperkalemia; Z99.2 - Dependence on renal dialysis Status: Acute Plan: Suspect secondary to end-stage renal disease. Will perform HD today. Follow labs in a.m. (5) Hypertension ICD Code: I10 - Essential (primary) hypertension Plan: Restart home medications. Follow BP trend. (6) Diabetes ICD Code: E11.9 - Diabetes Status: Chronic Plan: Accu-Chek before meals at bedtime, sliding scale, cover as needed. Follow blood sugar trends. Physician Certification 2 Midnight Certification Type: Admission for Inpatient Services Order for Inpatient Services The services are ordered in accordance with Medicare regulations or non- Medicare payer requirements, as applicable. In the case of services not specified as inpatient-only, they are appropriately provided as inpatient services in accordance with the 2-midnight benchmark. Estimated LOS (days): 3 3 days is the estimated time the patient will need to remain in the hospital, assuming treatment plan goals are met and no additional complications. Post-Hospital Plan: Not yet determined Problem Qualifiers (1) Chest pain: Qualified Codes: R07.9 - Chest pain, unspecified (2) Diabetes: Johanny Verma November 04, 2017 08:54
[2017-11-04] MEDS: SODIUM CHLORIDE 0.9% FLUSH 10 ML FLUSH IV FLUSH SCH ×2 (08:57→20:05)
[2017-11-04] MEDS: PHENYTOIN SODIUM 100 MG CAP PO SCH ×3 (09:00→17:03)
[2017-11-04] MEDS: FUROSEMIDE 40 MG TAB PO SCH (09:00)
[2017-11-04] MEDS: TICAGRELOR 90 MG TAB PO SCH ×2 (09:01→21:00)
--- NOTE | 2017-11-04 11:49 | PD.RAD ---
Post Procedure Progress Note Pre Procedure Diagnosis: (1) ESRD (end stage renal disease) on dialysis Post Procedure Diagnosis: (1) ESRD (end stage renal disease) on dialysis Procedure Date: November 04, 2017 Supervising Radiologist: Erickson Alexander Estimated blood loss: 3cc Anesthesia: Local Plan of Activity Patient to Unit: Nursing Unit Patient Condition: Fair Additional Comments: Right IJ vascath placed without difficulty. Catheter in good position OK for use See PACS Report for procedural detail/treatment Erickson Alexander MD November 04, 2017 11:49
[2017-11-04] MEDS ORDERED: HEPARIN SODIUM - IV 10,000 UNITS/10 ML VIAL IV ONE (11:50)
[2017-11-04] MEDS ORDERED: HEPARIN SODIUM - IV 2,000 UNITS/2 ML VIAL IV FLUSH PRN (12:00)
[2017-11-04] MEDS ORDERED: SODIUM CHLORIDE 0.9% FLUSH 10 ML FLUSH IV FLUSH PRN (12:00)
--- NOTE | 2017-11-04 12:10 | HHI.NPPN ---
Subjective General Problems: Anemia, Edema, Heart Disease, Hypertension Renal Failure: End Stage Renal Disease History of Present Illness 62-year-old male with history of hypertension, diabetes mellitus, hyperlipidemia , gastroesophageal reflux disease, seizure disorder, end-stage renal disease on hemodialysis three times per week, history of chronic anemia,and coronary artery disease with stent placement. . Presented to the hospital with complaint of shortness of breath, chest pain, and pain at AVF site. Nephrology was consulted for management of hemodialysis. Patients normal hemodialysis days are Wednesday, and Wednesday. Objective Data Data Vital Signs Date Time Temp Pulse Resp B/P (MAP) Pulse Ox O2 Delivery O2 Flow Rate FiO2 11/04/17 09:02 16 11/04/17 08:00 96.4 56 20 144/64 (90) 99 11/04/17 04:00 96.4 55 20 134/59 (84) 98 11/04/17 00:00 97.9 56 18 150/66 (94) 95 11/03/17 23:32 58 11/03/17 22:00 96.5 63 20 184/70 (108) 99 11/03/17 21:11 60 18 178/61 (100) 99 11/03/17 19:00 62 18 98 Room Air 11/03/17 19:00 62 18 171/54 (93) 98 Room Air 11/03/17 19:00 18 11/03/17 17:15 16 11/03/17 16:49 62 16 158/76 (103) 99 Room Air 11/03/17 16:38 99 Room Air 11/03/17 16:38 18 99 Room Air 11/03/17 15:00 18 99 Room Air 11/03/17 14:15 97.6 65 18 218/84 (128) 99 -: 11/03/17 1550 11/03/17 1550 Physical Exam General Appearance: No Acute Distress, Comfortable Eyes Eye Exam: Pupils Equal Throat Throat Exam: Oral Mucosa [place] & Moist Pulmonary Resp Exam: Breath Sounds Equal, No Distress, Rhonchi, Decreased Bases, Diminished Breath Sounds Cardiology CV Exam: Regular, Normal Sinus Rhythm Gastrointestinal/Abdomen GI Exam: Soft, Non-Tender, Bowel Sounds Present Extremeties Extremities Exam: Trace Edema Extremeties Remarks Left arm is swollen, with Bruit at AVF site. Neurologic Neuro Exam: Alert, Awake, Oriented Psychiatric Psych Exam: Appropriate Responses Assessment/Plan Problem List: (1) ESRD (end stage renal disease) on dialysis ICD Codes: N18.6 - End stage renal disease; Z99.2 - Dependence on renal dialysis Plan: End stage renal disease dialysis on Wednesday, ,and Wednesday. Left arm AVF with hematoma present. Plan Epogen with dialysis Continue PhosLo with meals Hyperkalemia treated with Kayexalate, sodium bicarbonate, and calcium gluconate. Has left arm edema and mild pain at AVF site. Develop hematoma and edema. AVF cannot be used. Got VasCath, PermCath was not done as he was on Ticagrelor. HD today, remove fluid as tolerated. (2) Diabetes ICD Codes: E11.9 - Diabetes Status: Chronic Plan: Maintain blood sugar between 140mg/dl to 180 mg/dl (3) Hypertension ICD Codes: I10 - Essential (primary) hypertension Plan: Continue home medications Problem Qualifiers (1) Diabetes: Caroline Alvarado MD November 04, 2017 12:10
--- NOTE | 2017-11-04 12:17 | RADRPT ---
EXAM DATE/TIME: 11/04/2017 11:29 [place] COMPARISON: No previous studies available for comparison. INDICATIONS : Patient with history of end-stage renal disease in need of non tunnelled dialysis catheter placement. MEDICAL HISTORY : Diabetes, HTN, HLD, GERD, CAD, Seizures, Chronic anemia, MRSA SURGICAL HISTORY : Left arm AV fistula, Cholecystectomy, Dialysis catheter placement, Coronary stent ENCOUNTER: Initial ACUITY: 1 day PAIN SCORE: 0/10 FLUORO TIME: 1.1 minutes IMAGE SERIES: 1 ACCESS: Right internal jugular vein DEVICE(S): 1.) 14 Albanian dual lumen 20 cm Schon catheter PROCEDURE : 1. Ultrasound guided venipuncture. 2. Fluoroscopic guidance. 3. Central line placement. The risks, benefits and alternatives to the procedure were explained and verbal and written consent w as obtained. The site was prepped in sterile fashion. Full sterile technique was used, including ca p, mask, sterile gloves and gown and a large sterile sheet. Hand hygiene and 2% chlorhexidine prep w as utilized per protocol for cutaneous antisepsis with appropriate dry time for site. Sterile gel an d sterile probe cover were utilized for ultrasound guidance. The skin and subcutaneous tissues were infiltrated with local anesthetic solution. A suitable site a katia the right internal jugular vein was selected with ultrasound and fluoroscopic guidance. A small incision was made. The vein was accessed under direct ultrasound visualization using the micropunct ure technique. The micropuncture set was exchanged for a 0.035 wire. The tract was dilated. The ca theter was advanced into position under direct fluoroscopic visualization. The catheter was fixed in place with suture and a sterile dressing was applied. The patient tolerated the procedure well and there were no complications. CONCLUSION: Uncomplicated 14 Albanian Vas-Cath placement for hemodialysis as above. Erickson Alexander MD on November 04, 2017 at 12:15 Board Certified Radiologist. This report was verified electronically.
[2017-11-04] MEDS: EPOETIN ALFA 10,000 UNITS/ML VIAL IV PUSH PRN (13:38)
[2017-11-04] MEDS: HEPARIN SODIUM - IV 10,000 UNITS/10 ML VIAL PRN (13:38)
[2017-11-04] MEDS: GENTAMICIN SULFATE 20 MG/2 ML VIAL OTHER PRN (13:39)
--- NOTE | 2017-11-04 14:28 | EKG ---
Date Performed: 11/03/2017 Time Performed: 14:21:48 PTAGE: 62 years EKG: Sinus rhythm WITH FIRST DEGREE AV BLOCK MINIMAL ST DEPRESSION ABNORMAL ECG Since the PREVIOUS TRACING , no significant change noted PREVIOUS TRACIN08/21/2017 06.06 DOCTOR: Jackie Cadena Interpretating Date/Time 11/04/2017 14:21:42
--- NOTE | 2017-11-04 14:28 | EKG ---
Date Performed: 11/04/2017 Time Performed: 09:20:42 PTAGE: 62 years EKG: SINUS BRADYCARDIA MODERATE ST DEPRESSION PROLONGED QT INTERVAL ABNORMAL ECG Since the PREVIOUS TRACING , no significant change noted PREVIOUS TRACIN11/03/2017 14.21 DOCTOR: Jackie Cadena Interpretating Date/Time 11/04/2017 14:21:34
[2017-11-04] MEDS: ATORVASTATIN 20 MG TAB PO SCH (21:20)
[2017-11-04] MEDS: HEPARIN SODIUM - SQ 10,000 UNITS/ML VIAL SQ SCH (21:25)
--- NOTE | 2017-11-04 23:30 | MB ---
cc: Sunil Amaya Vincent G DO DATE: 11/04/2017 REASON FOR CONSULTATION: Help with antiplatelet medications. HISTORY OF PRESENT ILLNESS: Bautista Fonseac is a 62-year-old male who sees my partner, Dr. Villarreal, in the office and presented to [facility] Emergency Room due to left arm weakness, numbness and chest pain. The patient states that 2 days ago, he started having chest pain which felt like tightness around the center of his chest. He states that it was constant and seemed to be worse with deep breathing. He has had this chest pain before, but cannot relate to what brought it on previously. He has also noticed some left upper arm swelling after dialysis. Apparently while at dialysis, he had difficulty with obtaining access. On arrival yesterday, they were unable to access his AV fistula, so apparently a Vas-Cath was placed. Originally a Permacath her was felt needed to be placed, but he would have to be off if his Brilinta for 5 days before that could be done. In seeing him, he is currently hemodynamically stable without chest pain or shortness of breath. He has had this before, but is unsure what it is related to. He normally does dialysis Wednesday, and Wednesday and his last dialysis was done Wednesday. Apparently, they attempted to do dialysis Wednesday, but they were unsuccessful with cannulating his AV fistula and a hematoma formed. He previously had a Permacath, but this was removed 5 days ago. Since he was admitted, a vas-cath had been placed. Originally they wanted to place a Permacath, but were unable to as he was on Brilinta. I was asked to see the patient due to his chest pain as well as help with what to do antiplatelet schilling for the patient. PAST MEDICAL HISTORY: 1. Coronary artery disease. 2. Anxiety/depression. 3. Arthritis. 4. Hypertension. 5. Type 2 diabetes mellitus. 6. End-stage renal disease on hemodialysis Wednesday, , Wednesday. 7. Gastroesophageal reflux disease. PAST SURGICAL HISTORY: 1. Cardiac catheterization (08/20/17). Left main mild luminal irregularities. LAD 75% stenosis past the first septal and first diagonal branch. First diagonal has multiple spots of 70% disease. Left circumflex is totally occluded distally. The major obtuse marginal has a 95% long stenosis. RCA is dominant with a 75% ulcerated proximal stenosis and a 30% mid stenosis. He underwent multivessel stenting as it was felt that the patient was too high risk for bypass. The obtuse marginal was stented with a Montgomery drug-eluting stent (2.5 x 26). The LAD was stented with an Jose drug-eluting stent (3.5 x 18). The RCA was stented with an Montgomery drug-eluting stent (3.5 x 15). 2. Left upper arm AV fistula placement 7 months ago. 3. Multiple amputations of his toes. 4. Left knee and hip replacement. 5. Cholecystectomy. ALLERGIES: NO KNOWN DRUG ALLERGIES. MEDICATIONS: 1. Brilinta 90 mg b.i.d. 2. Lipitor 20 mg every night. 3. Catapres 0.2 mg t.i.d. as needed for hypertension. 4. Toprol-XL 50 mg daily. 5. Enalapril 10 mg daily. 6. Aspirin 81 mg daily. 7. Dilantin 100 mg t.i.d. 8. Gabapentin 300 mg b.i.d. 9. Calcium acetate 1334 mg t.i.d. 10. Lasix 40 mg daily. 11. Lantus 34 units daily. FAMILY HISTORY: Denies premature coronary artery disease or sudden cardiac within the family. SOCIAL HISTORY: Denies tobacco, alcohol or drug abuse. REVIEW OF SYSTEMS: Fourteen systems were reviewed including osteopathic. Pertinent positives and negatives as above, otherwise negative. PHYSICAL EXAMINATION: VITAL SIGNS: Temperature 96.9, heart rate 67, blood pressure 128/53, respirations 18, pulse oximetry 96% on room air. GENERAL: The patient appears well in no acute distress, alert, awake and oriented x3. HEENT: Extraocular muscles intact. Mucous membranes moist. NECK: Supple. No JVD at 45 degrees. No carotid bruits heard bilaterally. Carotid upstroke is brisk in nature. HEART: Regular rate and rhythm. Positive first and second heart sounds with no known murmurs, gallops or rubs. LUNGS: Clear to auscultation bilaterally. No wheezes, rales or rhonchi. ABDOMEN: Soft, nontender, nondistended. No organomegaly noted. EXTREMITIES: Lower extremities show no clubbing or cyanosis. Left upper arm AV fistula with mild thrill. Left upper arm somewhat more swollen than the right upper arm. NEUROLOGIC: No focal deficits. SKIN: Warm, dry and intact. OSTEOPATHIC: No kyphoscoliosis, lordosis or paraspinal tender points. LABORATORY DATA: Hemoglobin 9.9, hematocrit 28.3, platelets 171. Potassium 5.8, BUN 69, creatinine 4.80. Troponin less than 0.02. CARDIOLOGY STUDIES: Electrocardiogram (11/03/2017 at 1421): Sinus rhythm with first degree AV block, nonspecific ST-T wave changes, no significant change from previous EKG. IMPRESSION: 1. Atypical chest pain. 2. Coronary artery disease with a history of multivessel coronary artery stenting (10/2017). 3. End-stage renal disease on hemodialysis Wednesday, , Wednesday with a vas-cath placed. 4. Hyperkalemia. 5. Hypertension. 6. Diabetes mellitus. RECOMMENDATIONS: 1. Mr. Fonseca attempted to have dialysis on Wednesday, but was unable to due to inability to access his AV fistula. He has since had a vas-cath placed. 2. As far as his antiplatelets go for consideration of a Permacath, as he had recent high-risk multivessel stenting in August he cannot stop his aspirin or Brilinta therapy. If Permacath needs to be placed this will have to be done while continuing his aspirin and Brilinta therapy. Overall, the risk of stopping this could lead to multivessel occlusion. 3. As far as his chest pain goes, it is very atypical. It does not appear that he has had chest pain since dialysis and it may be that he missed dialysis and was in a fluid overload state with an elevated left ventricular end diastolic pressure causing his chest pain. This can continue to be followed and, if concern, would consider repeat stress testing. 4. He will be seen as needed. If there are any questions, please do not hesitate to call. DO TISHA ShafferP/ , 10:50 PM , 11:29 PM
[2017-11-05] VITALS (9 sets, daily range): BP systolic 137–190; BP diastolic 62–74; PULSE 69–81; RESP 20; TEMP 96.9–98.8; O2SAT 20–97
[2017-11-05] MEDS: MORPHINE SULFATE 4 MG/ML INJ IV PRN ×5 (06:08→20:38)
[2017-11-05] MEDS: INSULIN ASPART SUPPLEMENTAL SCALE SQ SCH ×4 (07:49→21:00)
[2017-11-05] MEDS: SODIUM CHLORIDE 0.9% FLUSH 10 ML FLUSH IV FLUSH SCH ×2 (09:06→19:45)
[2017-11-05] MEDS: TICAGRELOR 90 MG TAB PO SCH ×2 (09:07→20:37)
[2017-11-05] MEDS: ENALAPRIL MALEATE 10 MG TAB PO SCH (09:07)
[2017-11-05] MEDS: PHENYTOIN SODIUM 100 MG CAP PO SCH ×3 (09:07→17:00)
[2017-11-05] MEDS: FUROSEMIDE 40 MG TAB PO SCH (09:07)
[2017-11-05] MEDS: METOPROLOL SUCCINATE 50 MG EXTENDED RELEASE TAB PO SCH (09:07)
[2017-11-05] MEDS: HEPARIN SODIUM - SQ 10,000 UNITS/ML VIAL SQ SCH ×2 (09:08→21:00)
[2017-11-05] MEDS: INSULIN DETEMIR 100 UNITS/ML VIAL SQ SCH (09:23)
--- NOTE | 2017-11-05 11:20 | HHI.PR ---
Subjective Remarks Follow-up end-stage renal disease, chest pain. Patient seen and examined, lying in bed with complaints of generalized weakness and pain. Patient underwent hemodialysis yesterday, tolerated well with right subclavian Vas-Cath placement. Eating well, no abdominal pain, nausea or vomiting. Spoke to Dr. Alvarado, about risk of stopping Brilinta and Aspirin if permcath placement needed. Cardiology following, ACS ruled out. Objective Vitals Vital Signs Date Time Temp Pulse Resp B/P (MAP) Pulse Ox O2 Delivery O2 Flow Rate FiO2 11/05/17 09:22 16 11/05/17 08:00 96.9 74 20 165/71 (102) 96 11/05/17 04:29 74 11/05/17 00:00 98.8 73 20 154/69 (97) 93 11/04/17 20:20 96 21 11/04/17 20:00 97.1 75 18 163/80 (107) 96 11/04/17 16:00 96.9 67 18 128/53 (78) 96 11/04/17 15:20 63 11/04/17 12:00 96.0 61 20 126/54 (78) 98 I/O 11/04/17 11/04/17 11/04/17 11/05/17 11/05/17 11/05/17 07:00 15:00 23:00 07:00 15:00 23:00 Intake Total 240 ml 480 ml 0 ml 120 ml Output Total 650 ml 4400 ml Balance -410 ml -3920 ml 0 ml 120 ml Intake Oral 240 ml 480 ml 0 ml 120 ml Output Urine Total 650 ml 400 ml Hemodialysis 4000 ml # Voids 1 2 # Bowel Movements 0 0 Result Diagram: 11/03/17 1550 11/03/17 1550 Imaging Last Impressions Catheter Placement X-Ray 11/04/17 0000 Signed Impressions: Service Date/Time: November 11:29 - CONCLUSION: Uncomplicated 14 Spanish Vas-Cath placement for hemodialysis as above. Erickson Alexander MD Upper Extremity Ultrasound 11/03/17 1522 Signed Impressions: Service Date/Time: Friday, November 03, 2017 16:07 - CONCLUSION: 1. Carlos Victoria MD Chest X-Ray 11/03/17 1444 Signed Impressions: Service Date/Time: Friday, November 03, 2017 15:19 - CONCLUSION: No acute pulmonary infiltrates. Gideon Arnold MD Objective Remarks GENERAL: Well-developed, well-nourished obese male patient in NAD. SKIN: Warm and dry. No rash. Significant left upper arm swelling and tightness. HEAD: Normocephalic. Atraumatic. EYES: Pupils equal and round. No scleral icterus. No injection or drainage. ENT: No nasal bleeding or discharge. Mucous membranes pink and moist. NECK: Supple. Trachea midline. CARDIOVASCULAR: Regular rate and rhythm. S1, S2 noted. No murmur appreciated. RESPIRATORY: No accessory muscle use. Clear to auscultation. Breath sounds equal bilaterally. GASTROINTESTINAL: Abdomen soft, non-tender, nondistended. Normoactive bowel sounds x4. MUSCULOSKELETAL: Right hand contractures as well as right elbow contractures. Extremities without clubbing, cyanosis, or edema. NEUROLOGICAL: Awake and alert. No obvious cranial nerve deficits. Motor grossly within normal limits. 5/5 muscle strength in bilateral upper and lower extremities. Normal speech. PSYCHIATRIC: Appropriate mood and affect; insight and judgment normal. A/P Problem List: (1) Chest pain ICD Code: R07.9 - Chest pain Status: Acute Plan: Patient underwent cardiac cath August 2017. Had stent placement at that time. On Brilinta and aspirin. Presents with chest pain. Troponin trend flat. A Vas-Cath has been placed. EKGs are performed, reviewed showing no ST changes. Will resume home statin, beta-carrie, clonidine and Vasotec and aspirin and Brilinta. Consult placed to cardiology, appreciate input recommendations regarding anticoagulation. Patient risk for stopping Brilinta and aspirin is significant due to recent stent placement. Nephrology updated. (2) DVT (deep venous thrombosis) ICD Code: I82.409 - Acute embolism and thrombosis of unspecified deep veins of unspecified lower extremity Plan: Patient presented with significant left upper extremity swelling and tightness. A left upper extremity ultrasound was done showing an occlusive thrombus in the basilic vein. Occlusive thrombus is seen in the mid to peripheral basilic vein. Patient is on Brilinta and aspirin at home. Continue. Cardiology following (3) End stage renal disease on dialysis ICD Code: N18.6 - End stage renal disease; Z99.2 - Dependence on renal dialysis Status: Acute Plan: Consult placed to nephrology, appreciate input recommendations. Vas- Cath placed. Dialysis today, Wednesday and Wednesday. Monitor BMP. (4) Hyperkalemia ICD Code: E87.5 - Hyperkalemia; Z99.2 - Dependence on renal dialysis Status: Acute Plan: Suspect secondary to end-stage renal disease. HD , , Wed. (5) Hypertension ICD Code: I10 - Essential (primary) hypertension Plan: Restart home medications. Follow BP trend. Clonidine available PRN. (6) Diabetes ICD Code: E11.9 - Diabetes Status: Chronic Plan: Accu-Chek before meals at bedtime, sliding scale, cover as needed. Follow blood sugar trends. Continue home Levemir. Problem Qualifiers (1) Chest pain: Qualified Codes: R07.9 - Chest pain, unspecified (2) Diabetes: Johanny Verma November 05, 2017 11:20
--- NOTE | 2017-11-05 12:20 | HHI.NPPN ---
Subjective General Problems: Anemia, Edema, Heart Disease, Hypertension Renal Failure: End Stage Renal Disease History of Present Illness 62-year-old male with history of hypertension, diabetes mellitus, hyperlipidemia , gastroesophageal reflux disease, seizure disorder, end-stage renal disease on hemodialysis three times per week, history of chronic anemia,and coronary artery disease with stent placement. . Presented to the hospital with complaint of shortness of breath, chest pain, and pain at AVF site. Nephrology was consulted for management of hemodialysis. Patients normal hemodialysis days are Wednesday, and Wednesday. Additional Remarks Patient is alert, no SOB, has mild pain in left arm. Objective Data Data 11/05/17 11/06/17 19:00 07:00 Intake Total 120 ml Balance 120 ml Intake Oral 120 ml Vital Signs Date Time Temp Pulse Resp B/P (MAP) Pulse Ox O2 Delivery O2 Flow Rate FiO2 11/05/17 09:22 16 11/05/17 08:00 96.9 74 20 165/71 (102) 96 11/05/17 04:29 74 11/05/17 00:00 98.8 73 20 154/69 (97) 93 11/04/17 20:20 96 21 11/04/17 20:00 97.1 75 18 163/80 (107) 96 11/04/17 16:00 96.9 67 18 128/53 (78) 96 11/04/17 15:20 61 -: 11/03/17 1550 11/03/17 1550 Physical Exam General Appearance: No Acute Distress, Comfortable Eyes Eye Exam: Pupils Equal Throat Throat Exam: Oral Mucosa [place] & Moist Pulmonary Resp Exam: Breath Sounds Equal, No Distress, Rhonchi, Decreased Bases, Diminished Breath Sounds Cardiology CV Exam: Regular, Normal Sinus Rhythm Gastrointestinal/Abdomen GI Exam: Soft, Non-Tender, Bowel Sounds Present Extremeties Extremities Exam: Trace Edema Extremeties Remarks Left arm is swollen, with Bruit at AVF site. Neurologic Neuro Exam: Alert, Awake, Oriented Psychiatric Psych Exam: Appropriate Responses Assessment/Plan Problem List: (1) ESRD (end stage renal disease) on dialysis ICD Codes: N18.6 - End stage renal disease; Z99.2 - Dependence on renal dialysis Plan: End stage renal disease dialysis on Wednesday, ,and Wednesday. Left arm AVF with hematoma present. Plan Epogen with dialysis Continue PhosLo with meals Hyperkalemia treated with Kayexalate, sodium bicarbonate, and calcium gluconate. Has left arm edema and mild pain at AVF site. Develop hematoma and edema. AVF cannot be used. Got VasCath, PermCath was not done as he was on Ticagrelor and ASA. HD done yesterday, I spoke to Vascular center, Dr. Zavala, he can do PermCath on Wednesday. Patient can be discharged tomorrow after HD and removal of Vascath. Also I will ask Dr. Zavala to also look into AVF and see if has central venous stenosis. (2) Diabetes ICD Codes: E11.9 - Diabetes Status: Chronic Plan: Maintain blood sugar between 140mg/dl to 180 mg/dl (3) Hypertension ICD Codes: I10 - Essential (primary) hypertension Plan: Continue home medications Problem Qualifiers (1) Diabetes: Caroline Alvarado MD November 05, 2017 12:19
[2017-11-05] MEDS: ASPIRIN 81 MG CHEW TAB PO SCH (12:22)
[2017-11-05 14:48] LABS: AUTOMATED NEUTROPHIL # 5.3 TH/MM3 (1.8-7.7); BASOPHIL % 0.5 % (0.0-2.0); EOSINOPHIL # 0.2 TH/MM3 (0-0.4); EOSINOPHIL % 2.9 % (0.0-4.0); HEMATOCRIT 27.4 % (39.0-51.0); HEMOGLOBIN 9.4 GM/DL (13.0-17.0); LYMPH % 9.6 % (9.0-44.0); LYMPHOCYTE # 0.7 TH/MM3 (1.0-4.8); MEAN CELL VOLUME 90.9 FL (80.0-100.0); MEAN CORPUSCULAR HEMOGLOBIN 31.3 PG (27.0-34.0); MEAN CORPUSCULAR HGB CONC 34.4 % (32.0-36.0); MEAN PLATELET VOLUME 8.3 FL (7.0-11.0); MONO % 9.5 % (0.0-8.0); MONOCYTE # 0.7 TH/MM3 (0-0.9); NEUT % 77.5 % (16.0-70.0); PLATELET COUNT 145 TH/MM3 (150-450); RED BLOOD COUNT 3.01 MIL/MM3 (4.50-5.90); RED CELL DISTRIBUTION WIDTH 15.8 % (11.6-17.2); WHITE BLOOD COUNT 6.9 TH/MM3 (4.0-11.0)
[2017-11-05 15:15] LABS: BLOOD UREA NITROGEN 52 MG/DL (7-18); CALCIUM 7.6 MG/DL (8.5-10.1); CHLORIDE 103 MEQ/L (98-107); GLOMERULAR FILTRATION RATE 14 ML/MIN (>89); GLUCOSE,RANDOM 219 MG/DL (74-106); SODIUM (NA) 137 MEQ/L (136-145); TROPONIN I LESS THAN 0.02 NG/ML (0.02-0.05)
[2017-11-05] MEDS: ATORVASTATIN 20 MG TAB PO SCH (20:37)
[2017-11-06] VITALS: BP 140/62; PULSE 72; RESP 20; TEMP 97.8; O2SAT 95
[2017-11-06] MEDS: ZOLPIDEM TARTRATE 5 MG TAB PO PRN (00:11)
[2017-11-06] MEDS: MORPHINE SULFATE 4 MG/ML INJ IV PRN ×3 (00:11→11:08)
[2017-11-06] MEDS: EPOETIN ALFA 10,000 UNITS/ML VIAL IV PUSH PRN (07:53)
[2017-11-06] MEDS: GENTAMICIN SULFATE 20 MG/2 ML VIAL OTHER PRN (07:53)
[2017-11-06] MEDS: HEPARIN SODIUM - IV 10,000 UNITS/10 ML VIAL PRN (07:53)
[2017-11-06] MEDS: INSULIN ASPART SUPPLEMENTAL SCALE SQ SCH ×2 (08:00→11:07)
[2017-11-06] MEDS: SODIUM CHLORIDE 0.9% FLUSH 10 ML FLUSH IV FLUSH SCH (09:00)
--- NOTE | 2017-11-06 10:11 | HHI.FF ---
Face to Face Verification Diagnosis: (1) Chest pain (2) End stage renal disease on dialysis (3) Hypertension (4) Diabetes Physical Therapy Order: Evaluate and Treat, Improve ambulation, Strength and gait training Home Health Nursing Order: Medical education Diabetic education Medication education-adverse effect Wound care and dressing changes Nursing assessment with vital signs Instructions: WOUND CARE ORDERS: PLEASE PLACE TELFA ON LEFT HEEL ULCER, PLANTAR ASPECT OF FOOT ULCER AND POSTERIOR LEFT CALF. ONCE HOME, RESUME HOME HEALTH CARE WOUND ORDERS PER NURSING. I have seen patient Bautista Fonseca, III on 11/06/17. My clinical findings support the need for the requested home health care services because: Patient has SOB Deconditioned w/ increased weakness Limited ability to care for self I certify that my clinical findings support that this patient is homebound because: Unsteady gait/balance Johanny Verma November 06, 2017 10:11
[2017-11-06] MEDS: PHENYTOIN SODIUM 100 MG CAP PO SCH ×2 (11:05→13:00)
[2017-11-06] MEDS: ENALAPRIL MALEATE 10 MG TAB PO SCH (11:05)
[2017-11-06] MEDS: METOPROLOL SUCCINATE 50 MG EXTENDED RELEASE TAB PO SCH (11:06)
[2017-11-06] MEDS: FUROSEMIDE 40 MG TAB PO SCH (11:06)
[2017-11-06] MEDS: TICAGRELOR 90 MG TAB PO SCH (11:06)
[2017-11-06] MEDS: ASPIRIN 81 MG CHEW TAB PO SCH (11:06)
[2017-11-06] MEDS: INSULIN DETEMIR 100 UNITS/ML VIAL SQ SCH (11:07)
[2017-11-06] MEDS: HEPARIN SODIUM - SQ 10,000 UNITS/ML VIAL SQ SCH (11:07)
[2017-11-06 12:00] VITALS: BP 148/59; PULSE 80; RESP 16; TEMP 98.1; O2SAT 97
[2017-11-06 12:49] VITALS: RESP 18
--- NOTE | 2017-11-06 13:31 | HHI.DS ---
Discharge Summary Admission Date November 03, 2017 at 18:27 Discharge Date: November 06, 2017 Admitting Diagnosis Chest pain. Hyperkalemia. End-stage renal disease on dialysis. (1) Chest pain ICD Code: R07.9 - Chest pain Status: Acute (2) DVT (deep venous thrombosis) ICD Code: I82.409 - Acute embolism and thrombosis of unspecified deep veins of unspecified lower extremity (3) End stage renal disease on dialysis ICD Code: N18.6 - End stage renal disease; Z99.2 - Dependence on renal dialysis Status: Acute (4) Hyperkalemia ICD Code: E87.5 - Hyperkalemia; Z99.2 - Dependence on renal dialysis Status: Acute (5) Hypertension ICD Code: I10 - Essential (primary) hypertension (6) Diabetes ICD Code: E11.9 - Diabetes Status: Chronic Procedures Vas cath placement 11/04/17. Removed on 11/06/17 prior to DC. Please see below. Brief History - From Admission This is a pleasant 62-year-old male patient with a known medical history of end- stage renal disease, CAD with cardiac stents, diabetes and hypertension who presented to the ED with complaints of left upper arm weakness and numbness as well as shortness of breath and associated chest pain. Patient states that while at rest on Wednesday night he developed a midsternal chest pressure that was characterized as tight and rated 9 out of 10 on pain scale, patient states the pain has been constant in nature worse with deep breathing. Denies any associated nausea, vomiting, diaphoresis. Does not know of any alleviating factors. Patient also noticed left upper arm swelling on Wednesday after dialysis. Supposedly dialysis was again able to access left upper arm AV fistula and subsequently patient noticed swelling. Patient did have an upper right chest Vas-Cath this was removed 5 days ago. Patient follows with Dr. Alvarado in the outpatient setting. Denies any recent illness including fever, chills, cough, abdominal pain, nausea, vomiting, diarrhea or dysuria. Patient was admitted to the hospital in August of this year for chest pain, underwent a cardiac catheterization with multiple vessel stenting. Patient is on Brilinta and aspirin. Follows with Dr. Mahoney in the outpatient setting. Patient had AV fistula done roughly 7 months ago at [facility]. CBC/BMP: 11/05/17 1420 11/05/17 1420 Significant Findings Laboratory Tests Test 11/03/17 15:50 11/05/17 01:15 11/05/17 14:20 White Blood Count 11.7 TH/MM3 (4.0-11.0) Red Blood Count 3.12 MIL/MM3 (4.50-5.90) 3.01 MIL/MM3 (4.50-5.90) Hemoglobin 9.9 GM/DL (13.0-17.0) 9.4 GM/DL (13.0-17.0) Hematocrit 28.3 % (39.0-51.0) 27.4 % (39.0-51.0) Neutrophils (%) (Auto) 75.3 % (16.0-70.0) 77.5 % (16.0-70.0) Basophils (%) (Auto) 3.7 % (0.0-2.0) Neutrophils # (Auto) 8.8 TH/MM3 (1.8-7.7) Basophils # (Auto) 0.4 TH/MM3 (0-0.2) Blood Urea Nitrogen 69 MG/DL (7-18) 52 MG/DL (7-18) Creatinine 4.80 MG/DL (0.60-1.30) 4.40 MG/DL (0.60-1.30) Random Glucose 114 MG/DL (74-106) 219 MG/DL (74-106) Alkaline Phosphatase 155 U/L (45-117) Potassium Level 5.8 MEQ/L (3.5-5.1) Carbon Dioxide Level 20.5 MEQ/L (21.0-32.0) Estimat Glomerular Filtration Rate 12 ML/MIN (>89) 14 ML/MIN (>89) Troponin I LESS THAN 0.02 NG/ML LESS THAN 0.02 NG/ML LESS THAN 0.02 NG/ML Phenytoin (Dilantin) Level 2.4 MCG/ML (10.0-20.0) Platelet Count 145 TH/MM3 (150-450) Monocytes (%) (Auto) 9.5 % (0.0-8.0) Lymphocytes # (Auto) 0.7 TH/MM3 (1.0-4.8) Calcium Level 7.6 MG/DL (8.5-10.1) Imaging Last Impressions Catheter Placement X-Ray 11/04/17 0000 Signed Impressions: Service Date/Time: November 11:29 - CONCLUSION: Uncomplicated 14 [facility] Vas-Cath placement for hemodialysis as above. Erickson Alexander MD Upper Extremity Ultrasound 11/03/17 1522 Signed Impressions: Service Date/Time: Friday, November 03, 2017 16:07 - CONCLUSION: 1. Carlos Victoria MD Chest X-Ray 11/03/17 1444 Signed Impressions: Service Date/Time: Friday, November 03, 2017 15:19 - CONCLUSION: No acute pulmonary infiltrates. Gideon Arnold MD PE at Discharge GENERAL: Well-developed, well-nourished obese male patient in [facility]. SKIN: Warm and dry. No rash. Significant left upper arm swelling and tightness. HEAD: Normocephalic. Atraumatic. EYES: Pupils equal and round. No scleral icterus. No injection or drainage. ENT: No nasal bleeding or discharge. Mucous membranes pink and moist. NECK: Supple. Trachea midline. CARDIOVASCULAR: Regular rate and rhythm. S1, S2 noted. No murmur appreciated. RESPIRATORY: No accessory muscle use. Clear to auscultation. Breath sounds equal bilaterally. GASTROINTESTINAL: Abdomen soft, non-tender, nondistended. Normoactive bowel sounds x4. MUSCULOSKELETAL: Right hand contractures as well as right elbow contractures. Extremities without clubbing, cyanosis, or edema. NEUROLOGICAL: Awake and alert. No obvious cranial nerve deficits. Motor grossly within normal limits. 5/5 muscle strength in bilateral upper and lower extremities. Normal speech. PSYCHIATRIC: Appropriate mood and affect; insight and judgment normal. Pt update on day of discharge Follow-up end-stage renal disease, chest pain. Patient seen and examined, lying in bed during dialysis. Doing well. Much improved. Participated with PT. Recs for continued [facility] PT and nursing. Afebrile. Eating well, denies any ab pain , n/v or diarrhea. Hospital Course Patient underwent cardiac cath August 2017. Had stent placement at that time. On Brilinta and aspirin. Presents with chest pain. Troponin trend flat. A Vas-Cath has been placed. EKGs are performed, reviewed showing no ST changes. Will resume home statin, beta-carrie, clonidine and Vasotec and aspirin and Brilinta. Consult placed to cardiology, appreciate input recommendations regarding anticoagulation. Patient risk for stopping Brilinta and aspirin is significant due to recent stent placement. Patient presented with significant left upper extremity swelling and tightness. A left upper extremity ultrasound was done showing an occlusive thrombus in the basilic vein. Occlusive thrombus is seen in the mid to peripheral basilic vein. Patient is on Brilinta and aspirin at home. Vas-Cath placed. Dialysis done and today (Wednesday). Plan to follow-up in vascular clinic on Wednesday to follow with nephrology and obtain dialysis. Resume home health care PT and wound care. Pt Condition on Discharge: Stable Discharge Disposition: Disch w/ Home Health Serv Discharge Time: > 30 minutes Discharge Instructions DIET: Follow Instructions for: Heart Healthy Diet, Renal Failure Diet Speech Therapy-Diet Recommends: Regular Activities you can perform: Regular-No Restrictions Follow up Referrals: Nephrology - 2-3 Days PCP Follow-up - 1 Week Continued Medications: Aspirin (Tgt Aspirin) 81 Mg Chw 81 MG PO DAILY for ,, #30 EA Atorvastatin (Lipitor) 20 Mg Tab 20 MG PO HS for Cholesterol Management, #30 TAB 0 Refills Calcium Acetate (Phosphate Binder) (Calcium Acetate (Phosphate Binder)) 667 Mg Cap 1334 MG PO TID for Hyperphosphatemia, #180 CAP 0 Refills WITH MEALS Clonidine (Catapres) 0.2 Mg Tab 0.2 MG PO TID PRN for IF SBP > 160, #60 TAB 0 Refills Collagenase Topical (Santyl Topical) 250 Unit/Gm Oint 1 APPLIC TOPICAL DAILY for Wound Management, #15 GM 0 Refills Enalapril (Enalapril) 10 Mg Tab 10 MG PO DAILY for htn, #30 TAB Furosemide (Lasix) 40 Mg Tab 40 MG PO DAILY, #30 TAB 0 Refills Gabapentin (Gabapentin) 300 Mg Cap 300 MG PO BID, #60 CAP 0 Refills Insulin Glargine Inj (Lantus Inj) 100 Unit/Ml Inj 34 UNITS SQ DAILY Metoprolol Succinate ER 24 HR (Metoprolol Succinate ER 24 HR) 50 Mg Tab 50 MG PO DAILY, #30 TAB 0 Refills Phenytoin Extended (Dilantin) 100 Mg Cap 100 MG PO TID for Control Seizures, #90 CAP 0 Refills Ticagrelor (Brilinta) 90 Mg Tab 90 MG PO BID for anti plt, #60 TAB Johanny eVrma November 06, 2017 13:31
== END 2017-11-06 15:55 | disposition home health service (06) | DRG 314 ==
LOC: PHED 14:12 → PHEDA 18:27 → PH3A 21:18
PROVIDERS: ADMIT Hospitalist; ATTEND Hospitalist
PROC: 5A1D70Z Performance of Urinary Filtration, Intermittent, Less than 6 Hours Per Day (ICD-10-PCS; principal; 2017-11-04)
PROC: 05HM33Z Insertion of Infusion Device into Right Internal Jugular Vein, Percutaneous Approach (ICD-10-PCS; 2017-11-04)
PROC: B513ZZA Fluoroscopy of Right Jugular Veins, Guidance (ICD-10-PCS; 2017-11-04)
DX: T82.898A Other specified complication of vascular prosthetic devices, implants and grafts, initial encounter (principal); N18.6 End stage renal disease; E11.22 Type 2 diabetes mellitus with diabetic chronic kidney disease; I82.622 Acute embolism and thrombosis of deep veins of left upper extremity; I12.0 Hypertensive chronic kidney disease with stage 5 chronic kidney disease or end stage renal disease; R07.9 Chest pain, unspecified; I25.10 Atherosclerotic heart disease of native coronary artery without angina pectoris; E87.5 Hyperkalemia; F32.9 Major depressive disorder, single episode, unspecified; K21.9 Gastro-esophageal reflux disease without esophagitis; D64.9 Anemia, unspecified; G40.909 Epilepsy, unspecified, not intractable, without status epilepticus; F41.9 Anxiety disorder, unspecified; M19.90 Unspecified osteoarthritis, unspecified site; Z96.652 Presence of left artificial knee joint; Z95.5 Presence of coronary angioplasty implant and graft; Z96.642 Presence of left artificial hip joint; Z89.429 Acquired absence of other toe(s), unspecified side; Z79.82 Long term (current) use of aspirin; Z79.899 Other long term (current) drug therapy; Z99.2 Dependence on renal dialysis
CPT/HCPCS: 36556; 71045; 76937; 77001; 80048; 80053; 80185; 82550; 82948; 83735; 84100; 84484; 85025; 85610; 85730; 90935; 93005; 93971; 94664; 96374; 96375; C1752; J0610; J1580; J1644; J1815; J2270; J7613; Q4081

== ENCOUNTER 2018-02-20 19:29 | Inpatient (IN) ==
[2018-02-20] MEDS ORDERED: Sodium Chlor 0.9% Inj 500 ML IV.SIG ONE (19:43)
[2018-02-20] MEDS ORDERED: DOPamine Inj 800 MG in Sodium Chlor 0.9% Inj 500 ML IV.CONT PRN (20:02)
[2018-02-20 20:12] LABS: ABG Base Excess -1.5 mmol/L (-2-2); ABG PCO2 40 mmHg (38-42); ABG PO2 73 mmHg (61-120)
--- NOTE | 2018-02-20 20:13 | ED ---
HPI General Chief Complaint: Chest Pain Stated Complaint: Cardiac Time Seen by Provider: 02/20/18 20:04 Source: patient and EMS Mode of arrival: EMS Limitations: no limitations History of Present Illness HPI narrative: 62-year-old male with known coronary vessel disease cardiac catheterization with stent placement as recently as August 2017 and known chronic renal failure with AV fistula graft left upper extremity and hemodialysis Tuesdays and Saturdays presents to the emergency department by EMS transport from home due to 10/10 left-sided chest pain all day. Prior to arrival to EMS mother noted that patient appeared pale clammy and weak upon EMS arrival patient was pale clammy hypotensive and markedly bradycardic with a reported heart rate of 30 and a systolic blood pressure of 60 mmHg. Patient was immediately placed on monitor and found to be in a narrow complex bradycardic rhythm that appeared junctional in nature patient reportedly received atropine without response pacemaker placement without response and was placed on dopamine infusion up to 10 mics with good blood pressure response and good heart rate response. Patient was given a 500 cc bolus of normal saline as well and did not receive any aspirin or nitroglycerin in route to the hospital. Upon arrival to the emergency department GCS is 15 patient rates pain 10/10 in intensity and states it has not changed all day. No report of shortness of breath nausea or vomiting or referred pain. Patient also has history of seizure disorder. Patient also has history of hypertension and diabetes. Patient does take Brilinta and aspirin daily. Patient was hospitalized November 2017 with hyperkalemia and chest pain but no evidence of an [place] at that time. Patient was treated for non-ST elevation [place] August 2017. Patient's promotions specialist is Dr. Mahoney. Patient has been seen in the past by Dr. Rizo. complaint: chest pain Complete Quality Measures for STEMI Alert Patients STEMI Alert: Yes Onset (ago): hour(s) Time: 20:02 Duration: constant Onset: during rest Pain location: left chest Severity: severe Severity scale (1-10): 10 Quality: aching Pain radiation: none Relieving factors: nothing Exacerbating factors: nothing Context: other (none) Associated symptoms: nausea, diaphoresis and other (weakness) Treatments prior to arrival chest pain: oxygen and other (pacemaker; atropine; dopamine; IV fluids) Related Data Home Medications Medication Instructions Recorded Confirmed aspirin 81 mg PO DAILY 02/20/18 02/20/18 enalapril maleate 5 mg PO DAILY 02/20/18 02/20/18 gabapentin 300 mg PO BID 02/20/18 02/20/18 lisinopril 10 mg PO DAILY 02/20/18 02/20/18 metoclopramide HCl 5 mg PO TID 02/20/18 02/20/18 metoprolol tartrate 50 mg PO BID 02/20/18 02/20/18 phenytoin sodium extended 200 mg PO BID 02/20/18 02/20/18 [Phenytek] ticagrelor [Brilinta] 60 mg PO BID 02/20/18 02/20/18 Allergies Allergy/AdvReac Type Severity Reaction Status Date / Time *MDRO Multi-Drug Resistant AdvReac Intermediate Abdominal Uncoded 02/20/18 19:35 Organism Pain Review of Systems ROS: all other systems reviewed are negative PMFSH History History Provided By: Patient (mi, cad, crf, dm, hhtn, sz; cath stent x 3 ) Social History Social History Substance History: No History of Abuse Second Hand Smoke Exposure: No Smoking Status: Never smoker How Often Do You Have a Drink Containing Alcohol: Never Recent Travel in [place] within the Last 8 Weeks: No Recent Out of Country Travel within the Last 8 Weeks: No Immunization History Tetanus Immunization: >5 Years Hx Influenza Vaccine This Season: Yes Exam Narrative Exam Narrative: GENERAL: Well-nourished, well-developed patient. GCS 15; no acute respiratory distress SKIN: Focused skin assessment warm/dry. [place] and dry HEAD: Normocephalic. EYES: No scleral icterus. No injection or drainage. NECK: Supple, trachea midline. No JVD or lymphadenopathy. CARDIOVASCULAR: Regular rate and rhythm without murmurs, gallops, or rubs. RESPIRATORY: Breath sounds equal bilaterally. No accessory muscle use. GASTROINTESTINAL: Abdomen soft, non-tender, nondistended. MUSCULOSKELETAL: No cyanosis, or edema. Left upper extremity AV fistula with positive thrill BACK: Nontender without obvious deformity. No CVA tenderness. Course Reevaluation(s) Reevaluation #1: @ 20:32 Dr Rizo ath the bedside Consultations Consultation #1: 19:54stat call placed to patient's promotions specialist DR Mcgill ---discussed with Dr Rizo Time: 19:54 Initial Documented Vital Signs Temperature 98.3 F 02/20/18 19:35 Pulse Rate 109 H 02/20/18 19:35 Respiratory Rate 16 02/20/18 19:35 Blood Pressure 221/95 H 02/20/18 19:35 Last Documented Vital Signs Temperature 98.2 F 02/21/18 03:00 Pulse Rate 61 02/21/18 03:00 Respiratory Rate 18 02/21/18 03:00 Blood Pressure 123/45 L 02/21/18 03:00 Pulse Oximetry 97 02/21/18 03:00 Critical Care Time Critical Care Time: Yes Total Critical Care Time: 30 Attestation: Aggregate critical care time was 30 minutes. Time to perform other separately billable procedures was not included in the critical care time. My time did not include minutes spent treating any other patients simultaneously or on activities that did not directly contribute to the patient's treatment. The services I provided to this patient were to treat and/or prevent clinically significant deterioration that could result in: Cardiogenic shock, cardiac arrest, I provided critical care services requiring my management, as noted below: Chart data review, documentation time, medication orders and management, vital sign assessments/reviewing monitor data, ordering and reviewing lab tests, ordering and interpreting/reviewing x-rays and diagnostic studies, care of the patient and discussion of the patient with the admitting physicians. Medical Decision Making MDM Narrative Medical decision making narrative: 62-year-old male with known cardiac disease and cardiac stents hypertension diabetes and regular failure presents after 1 day of 10/10 chest pain left-sided nonradiating became markedly weak with hypotension pallor bradycardia and diaphoresis just prior to arrival to the emergency department that responded to dopamine infusion but was refractory to atropine fluid and pacemaker. Patient here is found to be in a junctional tachycardia with rate of 110 ST elevation 1 mm in lead III but no sequential ST elevation but ST segment depression subendocardial he anterolaterally. Patient does not appear to have peaked T waves i-STAT has been ordered to evaluate for potassium is no wide complexes noted and was not noted on EMS EKG either. Patient is given aspirin 162 mg by mouth and in view of stable blood pressure a one-time sublingual nitroglycerin for complaint of 10/10 chest pain. Stat call placed to Dr. Mahoney service and patient discussed with Dr. Rizo covering for Dr. Mahoney EKG imaging was sent to Dr. Rizo to review with patient information protected. Dr. Rizo has called back and request patient to be sent to the [employer] as a STEMI alert. STEMI alert called at 20:02 I-STAT resulted potassium is 5.5 unlikely the source of patient's marked bradycardia concerning for acute coronary occlusive injury. Patient is being continued on dopamine infusion for maintenance of blood pressure and heart rate with good palpable pulses and patient. Medical Screen Exam Complete: Yes Emergency Medical Condition: Yes Differential Diagnosis Differential Diagnosis: Arrhythmia hyperkalemia ACS myocardial infarction Medical Records Medical records reviewed: Yes I reviewed the patient's medical records. Lab Data Lab results narrative: I-STAT remarkable for potassium of 5.5 sodium of 135 BUN and creatinine 46/5.8 respectively glucose is 224 hemoglobin 11.6% Result diagrams: 02/20/18 19:55 02/20/18 22:55 Lab Results 02/20/18 02/20/18 02/20/18 Range/Units 19:50 19:55 19:55 WBC (4.0-11.0) th/mm3 RBC (4.50-5.90) mil/mm3 Hgb (13.0-17.0) gm/dL POC Hgb (Calc) 11.6 L (13.0-17.0) g/dL Hct (39.0-51.0) % POC Hct 34.0 L (39-51.0) % MCV (80.0-100.0) fL MCH (27.0-34.0) pg MCHC (32.0-36.0) % RDW (11.6-17.2) % Plt Count (150-450) th/mm3 MPV (7.0-11.0) fL Neut % (Auto) (16.0-70.0) % Lymph % (Auto) (9.0-44.0) % [place] % (Auto) (0.0-8.0) % Eos % (Auto) (0.0-4.0) % Baso % (Auto) (0.0-2.0) % Neut # (Auto) (1.8-7.7) th/mm3 Lymph # (Auto) (1.0-4.8) th/mm3 [place] # (Auto) (0.0-0.9) th/mm3 Eos # (Auto) (0.0-0.4) th/mm3 Baso # (Auto) (0.0-0.2) th/mm3 WBC Differential Differential Comment PT (9.8-11.6) sec INR Ratio APTT (24.3-30.1) sec Puncture Site Right brachial Patient Temperature 98.6 O2 Saturation 92 (90-100) % ABG pH 7.38 (7.380-7.420) ABG pCO2 40 (38-42) mmHg ABG pO2 73 (61-120) mmHg ABG HCO3 23 (22-26) mmol/L ABG O2 Content 13.9 (12.0-20.0) Vol % ABG Base Excess -1.5 (-2-2) mmol/L ABG Methemoglobin 1.2 (0-2) % Hemoglobin 10.8 L (12.0-16.0) G/DL Carboxyhemoglobin 1.6 (0-4) % O2 Delivery Device Nasal cannula Liter Flow 2.00 L/M Inspired O2 21 % Critical Value No POC Sodium 135 L (137-144) mmol/L Sodium (136-145) meq/L POC Potassium 5.5 H (3.6-5.0) mmol/L Potassium (3.5-5.1) meq/L POC Chloride 100 L (102-111) mmol/L Chloride (98-107) meq/L Carbon Dioxide (21.0-32.0) meq/L Anion Gap (5-15) meq/L POC BUN 46 H (5-21) mg/dL BUN (7-18) mg/dL Creatinine (0.60-1.30) mg/dL POC Creatinine 5.8 H (0.6-1.3) mg/dL Estimated GFR (>89) mL/min POC Glucose 224 H (68-110) mg/dL Random Glucose (74-106) mg/dL Calcium (8.5-10.1) mg/dL Magnesium (1.5-2.5) mg/dL Total Creatine Kinase (39-308) U/L Troponin I (0.02-0.05) ng/mL B-Natriuretic Peptide 190 H (0-100) pg/mL 02/20/18 02/20/18 02/20/18 Range/Units 19:55 19:55 19:55 WBC 8.6 (4.0-11.0) th/mm3 RBC 3.60 L (4.50-5.90) mil/mm3 Hgb 12.0 L (13.0-17.0) gm/dL POC Hgb (Calc) (13.0-17.0) g/dL Hct 35.9 L (39.0-51.0) % POC Hct (39-51.0) % MCV 99.7 (80.0-100.0) fL MCH 33.4 (27.0-34.0) pg MCHC 33.5 (32.0-36.0) % RDW 14.9 (11.6-17.2) % Plt Count 120 L (150-450) th/mm3 MPV 8.4 (7.0-11.0) fL Neut % (Auto) 73.8 H (16.0-70.0) % Lymph % (Auto) 13.2 (9.0-44.0) % [place] % (Auto) 8.6 H (0.0-8.0) % Eos % (Auto) 3.5 (0.0-4.0) % Baso % (Auto) 0.9 (0.0-2.0) % Neut # (Auto) 6.3 (1.8-7.7) th/mm3 Lymph # (Auto) 1.1 (1.0-4.8) th/mm3 [place] # (Auto) 0.7 (0.0-0.9) th/mm3 Eos # (Auto) 0.3 (0.0-0.4) th/mm3 Baso # (Auto) 0.1 (0.0-0.2) th/mm3 WBC Differential . Differential Comment Auto diff final PT 10.0 (9.8-11.6) sec INR 1.0 Ratio APTT 27.2 (24.3-30.1) sec Puncture Site Patient Temperature O2 Saturation (90-100) % ABG pH (7.380-7.420) ABG pCO2 (38-42) mmHg ABG pO2 (61-120) mmHg ABG HCO3 (22-26) mmol/L ABG O2 Content (12.0-20.0) Vol % ABG Base Excess (-2-2) mmol/L ABG Methemoglobin (0-2) % Hemoglobin (12.0-16.0) G/DL Carboxyhemoglobin (0-4) % O2 Delivery Device Liter Flow L/M Inspired O2 % Critical Value POC Sodium (137-144) mmol/L Sodium 135 L (136-145) meq/L POC Potassium (3.6-5.0) mmol/L Potassium 5.5 H (3.5-5.1) meq/L POC Chloride (102-111) mmol/L Chloride 100 (98-107) meq/L Carbon Dioxide 22.5 (21.0-32.0) meq/L Anion Gap 13 (5-15) meq/L POC BUN (5-21) mg/dL BUN 47 H (7-18) mg/dL Creatinine 5.77 H (0.60-1.30) mg/dL POC Creatinine (0.6-1.3) mg/dL Estimated GFR 10 L (>89) mL/min POC Glucose (68-110) mg/dL Random Glucose 215 H (74-106) mg/dL Calcium 8.4 L (8.5-10.1) mg/dL Magnesium 2.3 (1.5-2.5) mg/dL Total Creatine Kinase 90 (39-308) U/L Troponin I Less than 0.02 L (0.02-0.05) ng/mL B-Natriuretic Peptide (0-100) pg/mL 02/20/18 02/20/18 02/20/18 Range/Units 22:55 23:04 23:06 WBC (4.0-11.0) th/mm3 RBC (4.50-5.90) mil/mm3 Hgb (13.0-17.0) gm/dL POC Hgb (Calc) (13.0-17.0) g/dL Hct (39.0-51.0) % POC Hct (39-51.0) % MCV (80.0-100.0) fL MCH (27.0-34.0) pg MCHC (32.0-36.0) % RDW (11.6-17.2) % Plt Count (150-450) th/mm3 MPV (7.0-11.0) fL Neut % (Auto) (16.0-70.0) % Lymph % (Auto) (9.0-44.0) % [place] % (Auto) (0.0-8.0) % Eos % (Auto) (0.0-4.0) % Baso % (Auto) (0.0-2.0) % Neut # (Auto) (1.8-7.7) th/mm3 Lymph # (Auto) (1.0-4.8) th/mm3 [place] # (Auto) (0.0-0.9) th/mm3 Eos # (Auto) (0.0-0.4) th/mm3 Baso # (Auto) (0.0-0.2) th/mm3 WBC Differential Differential Comment PT (9.8-11.6) sec INR Ratio APTT (24.3-30.1) sec Puncture Site Patient Temperature O2 Saturation (90-100) % ABG pH (7.380-7.420) ABG pCO2 (38-42) mmHg ABG pO2 (61-120) mmHg ABG HCO3 (22-26) mmol/L ABG O2 Content (12.0-20.0) Vol % ABG Base Excess (-2-2) mmol/L ABG Methemoglobin (0-2) % Hemoglobin (12.0-16.0) G/DL Carboxyhemoglobin (0-4) % O2 Delivery Device Liter Flow L/M Inspired O2 % Critical Value POC Sodium (137-144) mmol/L Sodium (136-145) meq/L POC Potassium (3.6-5.0) mmol/L Potassium 4.9 (3.5-5.1) meq/L POC Chloride (102-111) mmol/L Chloride (98-107) meq/L Carbon Dioxide (21.0-32.0) meq/L Anion Gap (5-15) meq/L POC BUN (5-21) mg/dL BUN (7-18) mg/dL Creatinine (0.60-1.30) mg/dL POC Creatinine (0.6-1.3) mg/dL Estimated GFR (>89) mL/min POC Glucose 411 H 203 H (68-110) mg/dL Random Glucose (74-106) mg/dL Calcium 9.6 D (8.5-10.1) mg/dL Magnesium 2.2 (1.5-2.5) mg/dL Total Creatine Kinase (39-308) U/L Troponin I 0.66 H* (0.02-0.05) ng/mL B-Natriuretic Peptide (0-100) pg/mL Imaging Data Radiologist's impression: Chest X-Ray 02/20/18 19:41 CONCLUSION: Engorged and indistinct central bronchopulmonary markings suggests pulmonary venous hypertension and/or pulmonary edema. Cardiomegaly. ECG Data EKG Prior to Arrival: Yes Attestation: I personally reviewed and interpreted this ECG as follows: Prior ECG tracings: available for review Interpretation: EKG: Junctional tachycardia with isolated lead III ST elevation 1 mm and subendocardial anterolateral changes noted no peak T waves. Discharge Plan Discharge Disposition Patient Disposition: 30 Still Patient Discharge Condition Condition: Fair Discharge Details Diagnosis: ST elevation (STEMI) myocardial infarction, Unstable angina pectoris Physicians Team ED Provider: Lynda Elmore Primary Care Provider: UNKNOWN, Attending Provider: Zaina Jacobson Other Providers: Lorne Pradhan ; Eduar Sandhu ; Ganga Rizo Discharge Interventions Interventions: ED Discharge Assessment Last Done: 02/20/18 20:56 Vital Signs Last Done: 02/20/18 19:42 Status ED Status: Left Department Discharge Information Discharge Date/Time: 02/20/18 20:58
[2018-02-20 20:19] LABS: Activated Partial Thrombo Time 27.2 sec (24.3-30.1)
--- NOTE | 2018-02-20 20:19 | XR ---
EXAM DATE: 02/20/2018 8:07 PM EDT AGE/SEX: 62 years / Male INDICATIONS: Chest pain. Stemi alert. CLINICAL DATA: This is the patient's initial encounter. Patient reports that signs and symptoms have been present for 1 day and indicates a pain score of Nonresponsive. MEDICAL/SURGICAL HISTORY: . diabetes, hypertension . Cholecystectomy COMPARISON: [facility], CHEST SINGLE AP, 11/03/2017. . FINDINGS: There is indistinctness and fullness of the central bronchopulmonary markings bilaterally suggesting pulmonary venous hypertension. The heart is enlarged. Both hemidiaphragms are well delineated. Healed fractures of the lateral fifth through seventh ribs. CONCLUSION: Engorged and indistinct central bronchopulmonary markings suggests pulmonary venous hypertension and/ or pulmonary edema. Cardiomegaly. Electronically signed by: Les Kimball MD 02/20/2018 8:18 PM EDT
[2018-02-20] MEDS ORDERED: Nitroglycerin Drip Premix 50 MG/250 ML BOTTLE IV.CONT PRN ×2 (20:22→20:33)
[2018-02-20] MEDS ORDERED: Heparin 10,000 UNITS/10 ML Vial (for IV use) IV.PUSH STA (20:29)
[2018-02-20 20:36] LABS: Anion Gap 13 meq/L (5-15); Blood Urea Nitrogen 47 mg/dL (7-18); Calcium 8.4 mg/dL (8.5-10.1); Carbon Dioxide 22.5 meq/L (21.0-32.0); Chloride 100 meq/L (98-107); Glomerular Filtration Rate 10 mL/min (>89); Glucose,Random 215 mg/dL (74-106); Magnesium 2.3 mg/dL (1.5-2.5); Potassium 5.5 meq/L (3.5-5.1); Sodium 135 meq/L (136-145)
[2018-02-20] MEDS ORDERED: Heparin/NS PF Inj 500 ML ONE (20:38)
[2018-02-20 20:42] LABS: Creatine Kinase 90 U/L (39-308)
[2018-02-20 21:16] LABS: Baso # (Auto) 0.1 th/mm3 (0.0-0.2); Baso % (Auto) 0.9 % (0.0-2.0); Eos # (Auto) 0.3 th/mm3 (0.0-0.4); Eos % (Auto) 3.5 % (0.0-4.0); Hematocrit 35.9 % (39.0-51.0); Lymph # (Auto) 1.1 th/mm3 (1.0-4.8); Lymph % (Auto) 13.2 % (9.0-44.0); Mean Corpuscular HGB Conc 33.5 % (32.0-36.0); Mean Corpuscular Hemoglobin 33.4 pg (27.0-34.0); Mean Corpuscular Volume 99.7 fL (80.0-100.0); Mean Platelet Volume 8.4 fL (7.0-11.0); Mono # (Auto) 0.7 th/mm3 (0.0-0.9); Mono % (Auto) 8.6 % (0.0-8.0); Neut # (Auto) 6.3 th/mm3 (1.8-7.7); Neut % (Auto) 73.8 % (16.0-70.0); Platelet Count 120 th/mm3 (150-450); Red Cell Distribution Width 14.9 % (11.6-17.2); White Blood Count 8.6 th/mm3 (4.0-11.0)
[2018-02-20] MEDS ORDERED: Heparin 10,000 UNITS/10 ML Vial (for IV use) IV.PUSH SCH (21:21)
[2018-02-20] MEDS ORDERED: Morphine Inj 4 MG/ML Vial IV.PUSH PRN (22:05)
[2018-02-20] MEDS ORDERED: Misc Info for Pharmacy OTHER STA (22:05)
[2018-02-20] MEDS ORDERED: Acetaminophen 325 MG Tablet PO PRN (22:05)
--- NOTE | 2018-02-20 22:05 | CATHPROC ---
[facility] HIS Report Study Information Study Number Admission Scheduled Start Study Start [id number] Feb 20 2018 8:35PM 02/20/2018 Feb 20 2018 8:44PM [place] Service Cardiac Catheterization Admit Source Facility Department Emergency department [facility] Apprentice Physician and Clinical Staff Initial Ganga Mason Pants Presser Margarita Claudio,HAMIDA/ELOINA Pants Presser Starr Dumont RN Recorder Bettina Horta,RT(R) Scrub [place], María,PROJECT COACH TECH2 Procedures Performed Procedure Location (Site) Vessel Name Coronary Angiograms LCA Left Coronary Coronary Angiograms RCA Right Coronary Drug Eluting Inflatio OM1 Prox CIRC L Heart Cath PTCA OM1 Prox CIRC Wire insertion Fem Art (right) Femoral Art Equipment Time Wood Ski Maker Description Size Mfg Part Number Used/Scraped WIRE, BALANCE MIDDLEWEIGHT [id number] 21:14 [employer] 190CM Used 190CM *[id number] TRANSDUCER, TRUWAVE [id number] 20:46 GRAHAM FARIA * Used W/STOCKCOCK *[id number] *[id number] *[id number] *[id number] 20:46 Spinal Simplicity BLANKET,WARM AIR CCL * Used *[id number] 20:46 Spinal Simplicity PACK, CCL CUSTOM * Used *[id number] 20:46 [email or web address] PACER PEN, SKIN DUAL W/ RULER * Used *[id number] 21:20 [employer] BALLOON, 2.5 X 12MM EUPHORA 12MM Used *[id number] 21:25 [employer] STENT, 2.75 15MM RENE 2.75 15MM Used *[id number] 21:23 [email or web address] MEDICAL 30 JAGRUTI INDEFLATOR Used *[id number] 20:46 [email or web address] MEDICAL SHEATH, FR6.5 PRELUDE 11CM FR 6.5 038ACT Used *[id number] 20:46 [employer] WIRE, 3MMJ .035 180CM 180CM Used *[id number] 20:46 NAMIC MANIFOLD, 4 PORT * Used *[id number] 20:46 [employer]ED OMNIPAQUE, 350 MG, 150ML 150ML [id number] Used Equipment Model, Serial, Lot Number and Expiration Data Description Model Number Serial Number Lot Number Expiration Date STENT, 2.75 15MM RENE [id number] 06-22-2019 History: Current Medications Medication Dosage/Unit Route Frequency Last Date/Time Taken CLONIDINE LASIX LIPITOR LISINOPRIL ASA BRILINTA History: Allergies Allergy Reaction *MDRO Multi-Drug Resistant Organism History: Risk Factors Family History of Hypertension Dyslipidemia Previous [place] Previous Heart Failure Premature CAD Yes Yes No No No Prior Valve Prior PCI Prior PCIDate Prior CABG Surgery No Yes 08/20/2017 No Cerebrovascular Peripheral Artery Chronic Lung On Dialysis Diabetes Diabetes Therapy Disease Disease Disease No Yes No No Yes Insulin History: Symptoms/Diagnosis Selection Items Chest pain History: Stress Tests Stress or Imaging Studies Performed Yes Standard Exercise Stress Test No Stress Echo No Stress Test SPECT No Stress Test CMR No Cardiac CTA Coronary Calcium Score No No History: Other Disease Selection Items Gerd HTN Labs Hgb (g/dl) Hct (%) 11.60-17.00 35.00-51.00 12.0 35.9 Glucose (mg/dl) BUN (mg/dl) Creatinine (mg/dl) BUN:Creatinine (1:x) 74.00-106.00 7.00-18.00 0.50-1.30 10.00-20.00 215 46 5.7 8.1 Na (meq/l) K (meq/l) 136.00-145.00 3.50-5.10 135 5.5 INR (PTT:PT) 0.90-1.10 1 Troponin I (ng/ml) CPK (u/l) CPK-MB (ng/ML) 0.02-0.05 26.00-308.00 0.50-3.60 0.02 90 Not Drawn Medication Medication Total Dose (Bolus/Oral) Medication Total Dosage/Unit 1% XYLOCAINE 20 mL BRILINTA 180 mg HEPARIN 2000 units VERSED 2 mg Medications (Bolus/Oral) Medication Time Given Dosage/Unit Administered By Reason 1% XYLOCAINE 02/20/2018 9:01:12 PM 20 mL Ganga Rizo 20 mL 1% XYLOCAINE given in lab by Ganga Rizo in Right Groin via Subcutaneous. VERSED 02/20/2018 9:01:23 PM 1 mg Starr Dumont 1 mg VERSED given in lab by Starr Dumont, RN in Right Forearm via Peripheral IV. Ordered by Ganga Rizo. VERSED 02/20/2018 9:13:19 PM 1 mg Starr Dumont 1 mg VERSED given in lab by Starr Dumont RN in Right Forearm via Peripheral IV. Ordered by Ganga iRzo. HEPARIN 02/20/2018 9:21:11 PM 2000 units Starr Dumont 2000 units HEPARIN given in lab by Starr Dumont RN in Right Forearm via Peripheral IV. Ordered by Ganga Rizo. BRILINTA 02/20/2018 10:02:06 PM 180 mg Starr Dumont 180 mg BRILINTA given in lab by Starr Dumont RN via Oral. Ordered by Ganga Rizo. Medication (Drip) Medication Time Given Dosage/Unit Concentration/Unit Diluent (ml) Solution DOPAMINE DRIP 02/20/2018 9:34:04 PM 3 mcg/kg/min 800 g 500 STOPPED 3 mcg/kg/min DOPAMINE DRIP STOPPED given in lab by Starr Dumont RN in Right Forearm via Peripheral IV. Pump/Drip Flow = 0.01 ml/hr using [Solution Name] with a concentration of 800 g in 500 ml. Ordered by Ganga Rizo. DOPAMINE HCL 02/20/2018 8:53:27 PM 6 mcg/kg/min 800 mg 500 D5W Patient arrived on 6 mcg/kg/min DOPAMINE HCL in Right Forearm via Peripheral IV. Pump/Drip Flow = 28. 64 ml/hr using D5W with a concentration of 800 mg in 500 ml. IV Solutions 02/20/2018 8:53:27 PM 50 mL (IV) NaCl .9 IV Solutions given in lab by Starr Dumont RN in Right Forearm via Peripheral IV. Pump/Drip Flow us ing NaCl .9. NITROGLYCERIN DRIP 02/20/2018 8:53:26 PM 5 mcg/min 50 mg 250 D5W Patient arrived on 5 mcg/min NITROGLYCERIN DRIP in Right Forearm via Peripheral IV. Pump/Drip Flow = 1.5 ml/hr using D5W with a concentration of 50 mg in 250 ml. NITROGLYCERN DRIP 02/20/2018 9:46:39 PM 5 mcg/min g 0 STOPPED 5 mcg/min NITROGLYCERN DRIP STOPPED given in lab by Starr Dumont RN in Right Forearm via Periphera l IV. Pump/Drip Flow = 0 ml/hr using [Solution Name]. Ordered by Ganga Rizo. Initial Case Assessment Cardiovascular Chest Pain 10 Edema Present Skin color Mild Normal Circulatory - Right Pulses Dorsalis Pedis Femoral 1 1 Scale (0,1,2,3,4,d) Circulatory - Left Pulses Dorsalis Pedis Femoral 1 1 Scale (0,1,2,3,4,d) Neurological State Oriented to time-place- Alert Moves all extremities person Chronological Log Time Study Chronological Log 20:38:11 ED notified screedman/laborer staff ready for pt 20:40:57 MD arrived. 20:46:35 Patient arrived via Bed. 20:46:37 Patient Name, D.O.B, / Armband Verified By R.N. 20:47:21 7000 UNITS HERPARIN GIVEN IN ED 20:52:45 Presedation assessment performed by [place] Apprentice RN. 20:53:18 Patient has been NPO for More than 6Hrs. 20:53:19 Skin Breakdown- bilateral groin open skin abrasions 20:53:20 Patient Warmer Placed on the Table. 20:53:21 Disposable Defibrillator Pads Placed On Patient. 20:53:22 Pura Prominences Protected 20:53:23 A # 20 IV was noted in the Forearm (right). Grade = 0 Patient arrived on 5 mcg/min NITROGLYCERIN DRIP in Right Forearm via Peripheral IV. Pump/Drip Flow = 1.5 ml/hr 20:53:26 using D5W with a concentration of 50 mg in 250 ml. 20:53:27 IV Solutions given in lab by Starr Dumont, HAMIDA in Right Forearm via Peripheral IV. Pump/D rip Flow using NaCl .9. Patient arrived on 6 mcg/kg/min DOPAMINE HCL in Right Forearm via Peripheral IV. Pump/Drip Boni w = 28.64 ml/hr 20:53:27 using D5W with a concentration of 800 mg in 500 ml. 20:53:28 History and physical on the chart or being dictated. Assessment: Initial Case, Chest Pain=10, Edema=Mild, Color=Normal Right Pulses: Shabbir Ped=1, Femoral=1 20:53:29 Left Pulses: Shabbir Ped=1, Femoral=1 Neurological: State=Alert, Ox3, DE DIOS Vitals capture started with the following parameters, Patient=Adult, Interval=5 min, Initial P mfqbkjz=753 mmHg, 20:54:08 Deflation Rate=5 mmHg, Cuff placed on Left Leg 20:54:53 SB=562 bpm, QRCZ=941/58 mmhg, SpO2=97.0 % 20:56:48 Bilateral groins prepped with 2% chlorhexidine, and draped after a 3 minute waiting time. 20:57:46 Reference ECG taken Time Out. Correct patient, correct procedure, correct physician, labs, allergies, and equipment verified with screedman/laborer 20:59:40 team present. Fire risk assesment completed (see hard stop sheet for coding). Time Out Conc urred by MD and individual staff in procedure. 20:59:56 HR=95 bpm, XMLJ=676/50 mmhg, SpO2=97.0 % 21:00:47 Case Start 21:01:12 20 mL 1% XYLOCAINE given in lab by Ganga Rizo in Right Groin via Subcutaneous. 21:01:23 1 mg VERSED given in lab by Starr Dumont RN in Right Forearm via Peripheral IV. Ordered by Ganga Rizo. 21:02:13 Pressure channel 1 zeroed. 21:03:24 Access site was Right Femoral Artery. 21:03:40 A SHEATH, FR6.5 PRELUDE 11CM FR 6.5 was advanced into the Fem Art (right) using the Percuta neous technique. 21:05:27 JO=554 bpm, HHLF=322/59 mmhg, SpO2=97.0 % A 3DRC INFINITI CATHETER FR 5 was advanced over a wire. OMNIPAQUE, 350 MG, 150ML 150ML was used for 21:05:44 injections. 21:07:32 The RCA was injected and visualized at various angles. OMNIPAQUE, 350 MG, 150ML 150ML used . Recorded Pressure: Ao, AY=761, Condition=Condition 1 21:07:33 (Aorta) Ao 173/77/122 21:08:24 Catheter was removed A JL 5.0 INFINITI CATHETER FR 6 was advanced over a wire. OMNIPAQUE, 350 MG, 150ML 150ML was us ed for :08:46 injections. 21:09:56 SH=192 bpm, XKSA=912/60 mmhg, SpO2=98.0 % 21:10:48 The LCA was injected and visualized at various angles. OMNIPAQUE, 350 MG, 150ML 150ML used . 21:13:19 1 mg VERSED given in lab by Starr Dumont, HAMIDA in Right Forearm via Peripheral IV. Ordered by Ganga Rizo. ::57 Catheter was removed Dopamine reduced to 3 mcg/kg/min DOPAMINE HCL in Right Forearm via Peripheral IV. Pump/Drip Boni w = 14.32 ml/hr 21:14:29 using D5W with a concentration of 800 mg in 500 ml. ::57 NH=559 bpm, WREZ=138/56 mmhg, SpO2=98.0 % A XB 4.5 GUIDE CATHETER FR 6 was advanced over a wire. OMNIPAQUE, 350 MG, 150ML 150ML was used for :15:16 injections. 21:18:17 Activated Clotting Time Drawn 21:18:48 A WIRE, BALANCE MIDDLEWEIGHT 190CM 190CM was inserted via Fem Art (right). 21:18:57 ACT (Normal Range 90-180) = 248 21:19:58 HR=98 bpm, RMRB=862/48 mmhg, SpO2=97.0 % 21:20:44 Interventional wire has crossed the lesion 21:21:11 2000 units HEPARIN given in lab by Starr Dumont, HAMIDA in Right Forearm via Peripheral IV. O rdered by Ganga Rizo. A BALLOON, 2.5 X 12MM EUPHORA 12MM was inserted over WIRE, BALANCE MIDDLEWEIGHT 190CM 190CM via the 21:22:00 Fem Art (right). A BALLOON, 2.5 X 12MM EUPHORA 12MM over a WIRE, BALANCE MIDDLEWEIGHT 190CM 190CM in the OM1 Pro x was 21:22:43 inflated using a 30 JAGRUTI INDEFLATOR at 8 jagruti for 24 sec. 21:24:25 Balloon Removed. 21:24:55 HR=96 bpm, ECOY=313/49 mmhg, SpO2=98.0 % A STENT, 2.75 15MM RENE 2.75 15MM was advanced through a XB 4.5 GUIDE CATHETER FR 6 over a WIRE , BALANCE :26:30 MIDDLEWEIGHT 190CM 190CM. A STENT, 2.75 15MM RENE 2.75 15MM was deployed using a 30 JAGRUTI INDEFLATOR at 10 atmospheres for 40 seconds 21::47 in the OM1 Prox. :29:12 Re-inflated the stent balloon in the OM1 Prox to 14 JAGRUTI for 14 seconds. 21:29:54 HR=94 bpm, NIBP=93/37 mmhg, SpO2=99.0 % 21:31:12 Delivery device removed 3 mcg/kg/min DOPAMINE DRIP STOPPED given in lab by Starr Dumont RN in Right Forearm via Winifred pheral IV. 21:34:04 Pump/Drip Flow = 0.01 ml/hr using [Solution Name] with a concentration of 800 g in 500 ml. Ordered by Ganga Rizo. 21:35:18 HR=93 bpm, TWZP=281/49 mmhg, BzT2=867.0 % 21:36:02 Catheter was removed 21:36:03 Wire removed 21:36:19 An injection in the Fem Art (right) was made through the SHEATH, FR6.5 PRELUDE 11CM FR 6.5. 21:37:51 Case End (Physician broke scrub) 21:39:56 HR=85 bpm, BPDV=511/36 mmhg, SpO2=99.0 % 21:44:51 HR=81 bpm, MEIS=166/31 mmhg, SpO2=99.0 % 5 mcg/min NITROGLYCERN DRIP STOPPED given in lab by Starr Dumont RN in Right Forearm via Per ipheral IV. 21:46:39 Pump/Drip Flow = 0 ml/hr using [Solution Name]. Ordered by Ganga Rizo. 21:48:08 In the Fem Art (right) the SHEATH, FR6.5 PRELUDE 11CM FR 6.[address] by Ganga Rizo. 21:48:11 Sterile dressing applied to site 21:48:13 No case complications noted. 21:48:16 Cine recording checked. 21:48:19 Bedside Report will be given. 21:48:20 Implantable Device card placed in patient's chart. 21:48:21 Report called to floor. 21:48:24 A Left Heart Cath was performed. 21:49:48 HR=78 bpm, YPXW=916/31 mmhg, ZcS2=305.0 % 21:54:49 HR=77 bpm, KOIV=077/32 mmhg, SpO2=99.0 % 22:01:56 Vitals capture stopped. 22:02:06 180 mg BRILINTA given in lab by Starr Dumont RN via Oral. Ordered by Ganga Rizo. 22:05:25 [facility] - Contrast Media Used In Study Contrast Total Opened (mL) Total Used (mL) Total Wasted (mL) Omnipaque 150 100 50 End Study - Maximum Contrast Load Max Contrast Load (mL) 111.6 End Study - Radiation Exposure Fluoro Time (minutes) 8.7 End Study - Patient Disposition Complications Transferred To Interventional Outcome No Critical Care Bed successful
[2018-02-20] MEDS ORDERED: Morphine Sulfate Inj 8 MG/ML Vial ONE (22:07)
--- NOTE | 2018-02-20 22:23 | MH ---
cc: Ganga Rizo MD DATE OF ADMISSION: 02/20/2018 ADMISSION DIAGNOSES: 1. Unstable angina. 2. Bradycardia. 3. End-stage renal disease, on dialysis. 4. Hypertension. 5. Diabetes. CHIEF COMPLAINT: Chest pain. HISTORY OF PRESENT ILLNESS: Bautista Fonseca is a 62-year-old man with known coronary artery disease. He had 3-vessel disease when I catheterized him on 08/20/2017. He had 3-vessel stenting of the LAD, circumflex marginal and right coronary artery. The distal circumflex artery was occluded at that time. The patient says he has had chest pain all day today then this evening, he had near syncope. He was found to have severe hypertension and bradycardia. He did not respond to atropine but responded to dopamine. He was brought in having 10/10 chest pain and he was in sinus rhythm with the dopamine. He was brought emergently to the dental laboratory manager and underwent stenting of the obtuse marginal branch. At the time of this dictation, his circumflex has been stented. PAST MEDICAL HISTORY: Includes seizure disorder, gastroesophageal reflux disease, anxiety, depression, hepatitis C, pancreatitis, previous MRSA, previous stroke, diabetes, end-stage renal disease, on dialysis, hypertension, hyperlipidemia, previous loop recorder, history of medication compliance issues. MEDICATIONS: Include aspirin, Brilinta 90 b.i.d., clonidine 0.2 t.i.d., Lasix 20 mg, metoprolol succinate 50 b.i.d. He is also on a bunch of noncardiac medications. Please see medication reconciliation sheet. PAST SURGICAL HISTORY: Includes his stent procedures. He has had multiple toes amputated, cholecystectomy, left knee and hip surgery, lumbar surgery. He underwent a peripheral arterial procedure from the right groin by Dr. Hdz less than a week ago. REVIEW OF SYSTEMS: Negative for any bleeding. Remaining review of systems negative. PHYSICAL EXAMINATION: GENERAL: Obese white male in mild distress. VITAL SIGNS: Charted. HEENT: Unremarkable. NECK: Supple. CHEST: Clear to auscultation. CARDIOVASCULAR: S1, S2. Regular rate and rhythm. Soft systolic murmur. ABDOMEN: Soft. EXTREMITIES: Diminished pedal pulses. Right groin has a strong pulse. Left groin has a weak pulse. There is about a 1 cm open wound from the previous vascular procedure he had done, but no obvious sign of infection. DIAGNOSTIC DATA: EKG shows sinus rhythm with subtle inferior changes. EVAC showed bradycardia. LABORATORY DATA: Charted. Potassium is 5.5. IMPRESSION: Acute coronary syndrome, bradycardia, mild hyperkalemia. PLAN: The patient underwent a repeat catheterization and was found to have restenosis in the proximal portion of the obtuse marginal branch. This was stented with an excellent angiographic result. There was diffuse disease distal to the stent but stable. The patient will continue on aspirin and Brilinta. Dopamine has been turned off. He is being admitted to the ICU for overnight observation. Sheath will be pulled manually. Procedure was done with heparin. MD DARRELL Torres/dorothy , 09:59 PM , 10:07 PM
[2018-02-20] MEDS ORDERED: Atropine Inj 1 MG/ML Vial IV.PUSH SCH (22:45)
[2018-02-20] MEDS ORDERED: Calcium Chloride Inj 1 GM/10 ML Syringe IV.PUSH SCH (22:45)
[2018-02-20] MEDS ORDERED: Calcium Chloride Inj 1 GM/10 ML Syringe ONE (22:49)
[2018-02-20] MEDS ORDERED: Sodium Bicarbonate 8.4% Inj 50 MEQ/50 ML Syringe ONE (22:49)
[2018-02-20] MEDS ORDERED: Atropine Inj 1 MG/10 ML Syringe ONE (22:49)
[2018-02-20] MEDS ORDERED: DOPamine 800 MG/500 ML Premix 800 MG/500 ML PLAST..BAG IV.CONT PRN (23:05)
--- NOTE | 2018-02-20 23:12 | MA ---
cc: Ganga Rizo MD DATE: 02/20/2018 PROCEDURE PERFORMED: Coronary angiography, balloon angioplasty and stenting of the proximal portion of the obtuse marginal branch of the left circumflex coronary artery. DESCRIPTION OF PROCEDURE: The patient was brought to the cardiac catheterization lab under emergency conditions. Using 1% lidocaine for local anesthesia, I accessed the right femoral artery. My access point was slightly superomedially to the previous access wound from the procedure down last week. Access was obtained with 1 stick. Next, coronary angiography was completed using a 3DRC and a left 5 Sindi. The stents in the LAD and right coronary artery looked fine. The stent in the obtuse marginal branch was severely restenosed proximally. I decided to go after this using XB 45 guiding catheter. I wired it with a BMW wire. I predilated it with a 2.5 mm balloon and then stented it with a 2.75 x 15 mm Resolute On-X stent at 10 atmospheres and then I withdrew the balloon more proximally and reinflated it to 14 atmospheres. Angiography now demonstrated complete resolution of the stenosis that was in the very proximal portion of this branch. Note that bradycardia was reproduced during balloon inflation, suggesting that this may have been the cause of his bradycardia. Dopamine and nitroglycerin were turned off at the end of the procedure. He still had chest pain. This is somewhat difficult to interpret in this complex gentleman. The films were carefully studied and I did not think any further revascularization was needed. The procedure was done with heparin. At the end of procedure, I obtained an angiogram via the sheath. The sheath was somewhat close to the femoral artery bifurcation. Plus, I was worried about sterility due to the open wound that was present from the procedure Dr. Hdz did within the past week, so I opted to have the sheath pulled manually later. FINDINGS: 1. HEMODYNAMICS: Aortic pressure was 173/77 with a mean of 122. 2. CORONARY ANGIOGRAPHY: The left main coronary artery is large and normal. It bifurcates into the LAD and circumflex vessels. The LAD has a widely patent stent just past the diagonal branch. There are 20% irregularities distally. The major diagonal branch has about to 60% to 70% proximal and mid disease, stable from the previous procedure. Circumflex artery has an eccentric 35% proximal stenosis. The major obtuse marginal branch has proximal restenosis on a curve at about 90% severity. The rest of the marginal branch is somewhat diffusely diseased. There is an atrial branch given off just past the obtuse marginal branch and the distal circumflex artery is totally occluded with faint collaterals. The right coronary artery is dominant. The proximal stent from August is widely patent. There is an area about 30% mid disease, which is stable from his procedure in August. 3. RESULTS OF STENTING: Following stenting of the proximal obtuse marginal branch, 0% residual stenosis had been achieved with normal MAYNOR 3 flow. PLAN: The patient will continue on aspirin and Brilinta. He is being admitted to the ICU. I am going to leave him beta blockers because of the bradycardia. He will need to undergo dialysis to help bring the potassium down. We will consult nephrology. I anticipate a hospital stay of a couple of days. MD DARRELL Torres/dorothy , 10:02 PM , 10:10 PM
[2018-02-21 00:01] LABS: Calcium 9.6 mg/dL (8.5-10.1); Magnesium 2.2 mg/dL (1.5-2.5); Potassium 4.9 meq/L (3.5-5.1)
[2018-02-21 00:12] LABS: Troponin I 0.66 ng/mL (0.02-0.05)
[2018-02-21 07:53] LABS: Calcium 8.1 mg/dL (8.5-10.1); Carbon Dioxide 26.7 meq/L (21.0-32.0); Potassium 5.4 meq/L (3.5-5.1)
--- NOTE | 2018-02-21 07:59 | P.CON ---
History of Present Illness Service: [facility] Hospitalist service Consult date: 02/21/18 Requesting Physician: Ganga Rizo Reason for Consult: Medical management Primary Care Provider: Dr. Bridger Ludwig Chief Complaint: Chest pain History of Present Illness: Patient is a very pleasant 62-year-old male with history of CAD status post cardiac cath and stent placement August 2017, end-stage renal disease on hemodialysis Saturdays, seizure disorder, hypertension, history of previous CVA baseline is still ambulatory with a walker still independent with ADLs who was admitted in February 20 presenting with chest pain with a near syncopal episode. Patient states that this happened at home while in the chair. [facility] was called and patient was brought in here and noted to be bradycardic. On initial evaluation was hypertensive, with hyperkalemia. Troponin from 0.2 up to 0.66. K level 5.5 Patient received calcium gluconate bicarb. Patient underwent cardiac cath and obtuse marginal branch was stented. Patient was noted to be also bradycardic. Postprocedure was started on dopamine drip. Patient currently seen in CVICU, postprocedure was noted to be hypotensive with a heart rate 60s-currently on dopamine drip at 5 mcg/kg/min. Patient appears comfortable with no complaints of chest pains or shortness of breath. Initial twelve-lead EKG shows sinus rhythm with mild ST elevation in lead III and aVF. Repeat 12-lead EKG shows this morning shows sinus rhythm with same mild ST elevation in 3 aVF with some septal ST depression in V4 to V6. Patient states diabetes type 2 insulin requiring patient. Patient has no hypoglycemic awareness. Has not had any hypoglycemic episodes. History of seizure disorder last seizure disorder episode was about 10 years ago. [facility] - History History Provided By: Patient (mi, cad, crf, dm, hhtn, sz; cath stent x 3) - Medical / Surgical Hx Neg / Unobtainable Medical Problems Denied: Yes - Medical History Medical History: Medical History (Last Reviewed 02/21/18 @ 07:58 by Zaina Jacobson MD) Neuropathy (Acute) AV fistula (Acute) Diabetes End stage renal disease History of amputation of great toe of both feet Seizure - Surgical History Surgical History: Surgical History (Last Updated 02/21/18 @ 07:58 by Zaina Jacobson MD) Knee joint replacement status (Acute) H/O heart artery stent History of cholecystectomy - Tobacco History Second Hand Smoke Exposure: No Smoking Status: Never smoker - Alcohol History How Often Do You Have a Drink Containing Alcohol: Never - Substance Use History Substance History: No History of Abuse - Travel History Recent Travel in the [place] Within the Last 8 Weeks: No Recent Travel Out of the Country Within the Last 8 Weeks: No - Immunization History Tetanus Immunization: >5 Years Hx Influenza Vaccine This Season: Yes Medications and Allergies Active Medications: Active Medications Acetaminophen (Tylenol) 325 mg PO Q4H PRN PRN Reason: PAIN SCALE 1 TO 2 Amlodipine Besylate (Norvasc) 5 mg PO DAILY SKIP Aspirin (Aspirin Chew) 81 mg PO DAILY SKIP Dopamine HCl/Dextrose (Dopamine 800 Mg/500 Ml Premix) 800 mg in 500 mls @ 47.627 mls/hr IV.CONT TITRATE PRN; Protocol PRN Reason: Per Protocol Last Admin: 02/21/18 04:09 Dose: 4 mcg/kg/min, 19.05 mls/hr Morphine Sulfate (Morphine Inj) 3 mg IV.PUSH Q30M PRN PRN Reason: BREAKTHROUGH PAIN Oxycodone/Acetaminophen (Percocet 10/325 Mg) 1 tab PO Q4H PRN PRN Reason: PAIN SCALE 6 TO 10 Sodium Chloride (Ns Flush) 2 ml IV.FLUSH UNSCH PRN PRN Reason: FLUSH AFTER USING IV ACCESS Last Admin: 02/20/18 20:01 Dose: 2 ml Sodium Chloride (Ns Flush) 2 ml IV.FLUSH BID SKIP Sodium Chloride (Ns Flush) 2 ml IV.FLUSH PRN PRN PRN Reason: FLUSH AFTER USING IV ACCESS Terbutaline Sulfate (Brethine Inj) 1 mg SQ ONCE PRN PRN Reason: Extravasation Ticagrelor (Brilinta) 90 mg PO BID SKIP Allergies Allergy/AdvReac Type Severity Reaction Status Date / Time *MDRO Multi-Drug Resistant AdvReac Intermediate Abdominal Uncoded 02/20/18 19:35 Organism Pain Home Medications Medication Instructions Recorded Confirmed Type aspirin 81 mg PO DAILY 02/20/18 02/20/18 History enalapril maleate 5 mg PO DAILY 02/20/18 02/20/18 History gabapentin 300 mg PO BID 02/20/18 02/20/18 History lisinopril 10 mg PO DAILY 02/20/18 02/20/18 History metoclopramide HCl 5 mg PO TID 02/20/18 02/20/18 History metoprolol tartrate 50 mg PO BID 02/20/18 02/20/18 History phenytoin sodium extended 200 mg PO BID 02/20/18 02/20/18 History [Phenytek] ticagrelor [Brilinta] 60 mg PO BID 02/20/18 02/20/18 History Physical Exam Vital signs: Vital Signs 02/20/18 19:35 02/20/18 19:40 02/20/18 19:42 Temperature 98.3 F 98.2 F Pulse Rate 109 H 101 H Respiratory Rate 16 16 Blood Pressure 221/95 H 221/95 H Blood Pressure [Right Arm] 109/55 L Pulse Oximetry 02/20/18 19:51 02/20/18 19:56 02/20/18 19:57 Temperature Pulse Rate 76 75 Respiratory Rate 16 Blood Pressure 167/74 H Blood Pressure [Right Arm] Pulse Oximetry 97 97 02/20/18 20:23 02/20/18 22:20 02/20/18 22:30 Temperature 98.0 F Pulse Rate 106 H 68 Respiratory Rate 16 16 Blood Pressure 217/97 H 114/39 L Blood Pressure [Right Arm] Pulse Oximetry 2 L 95 99 02/20/18 22:45 02/20/18 23:00 02/20/18 23:30 Temperature Pulse Rate 35 L 113 H 100 H Respiratory Rate Blood Pressure 78/25 L 228/71 H 189/96 H Blood Pressure [Right Arm] Pulse Oximetry 99 02/21/18 00:00 02/21/18 00:31 02/21/18 00:32 Temperature Pulse Rate 67 Respiratory Rate Blood Pressure 97/36 L 139/50 L 135/45 L Blood Pressure [Right Arm] Pulse Oximetry 02/21/18 03:00 02/21/18 07:15 02/21/18 07:18 Temperature 98.2 F Pulse Rate 61 65 64 Respiratory Rate 18 Blood Pressure 120/39 L 134/41 L 130/42 L Blood Pressure [Right Arm] Pulse Oximetry 97 02/21/18 07:21 02/21/18 07:24 02/21/18 07:28 Temperature Pulse Rate 61 62 62 Respiratory Rate Blood Pressure 130/37 L 135/38 L 125/39 L Blood Pressure [Right Arm] Pulse Oximetry 02/21/18 07:37 Temperature Pulse Rate Respiratory Rate Blood Pressure Blood Pressure [Right Arm] Pulse Oximetry 98 Intake & Output 02/20/18 02/21/18 02/21/18 18:59 06:59 18:59 Output Total 0 / 0 Balance 0 / 0 Weight 130 kg Output: Urine 0 / 0 Narrative: Awake alert not in acute distress Anicteric Neck supple no nuchal rigidity Chest lungs no rales no wheezes Regular rhythm Abdomen is soft good bowel sounds Right groin cardiac cath sheath just pulled no bleeding Lower extremity no edema Left foot amputated second to fourth toe with left heel ulcer stage II with mild erythema Right foot post amputation of all toes except the fourth toe Moves all extremities spontaneously Assessment and Plan - Plan 62-year-old male presenting with chest pain Acute coronary syndrome status post emergent cardiac cath with stenting of left OM History of hypertension Hypotension, bradycardia-on presentation Patient continued on aspirin Brilinta amlodipine 5 mg daily- with hold parameters -As outpatient was on clonidine 0.2 mg 3 times daily, Lopressor 50 twice daily. - DC -No beta-carrie/clonidine because of bradycardia -Continue on dopamine drip and wean off hopefully after dialysis initiated -Cardiology following -Echo ordered - check lipid panel, baseline liver function tets - start statin- Lipitor 20 mg hs End-stage renal disease on hemodialysis hyperkalemia -on presentation. -Received calcium gluconate and bicarb. -Nephrology consulted for hemodialysis arrangement -Hold MARIBETH inhibitors for now History of seizure disorder last seizure episode was 10 years ago Diabetic neuropathy -Continue on phenytoin, gabapentin. Diabetes type 2 insulin requiring. - Per patient he is on Lantus 34 units every morning - We will check a hemoglobin A1c -Sliding scale regular insulin for now. Left heel wound - We will consult wound care team -
[2018-02-21] MEDS ORDERED: Dextrose 50% in Water 50 ML Vial IV.PUSH PRN (08:12)
[2018-02-21] MEDS: Gabapentin 300 MG Capsule PO SCH ×2 (08:46→20:38)
[2018-02-21] MEDS: Phenytoin Sodium 100 MG Capsule PO SCH ×2 (08:47→20:38)
[2018-02-21] MEDS: amLODIPine 5 MG Tablet PO SCH (10:13)
[2018-02-21 10:14] LABS: Albumin 3.4 g/dL (3.4-5.0)
[2018-02-21 10:15] LABS: Total Protein 6.9 g/dL (6.4-8.2)
[2018-02-21] MEDS ORDERED: Albumin Human 25% Inj 100 ML IV.SIG PRN (10:37)
[2018-02-21] MEDS ORDERED: Sod Chloride 0.9% Inj 1,000 ML IV.CONT PRN (10:37)
[2018-02-21] MEDS ORDERED: Acetaminophen 325 MG Tablet PO PRN (10:37)
[2018-02-21] MEDS ORDERED: Sod Chloride 0.9% Inj 1,000 ML OTHER PRN ×2 (10:37)
[2018-02-21] MEDS ORDERED: Heparin 10,000 UNITS/10 ML Vial (for IV use) OTHER PRN ×2 (10:37)
[2018-02-21] MEDS ORDERED: Gelatin 12 MM/7 MM Topical Foam TOPICAL PRN (10:37)
--- NOTE | 2018-02-21 10:37 | P.CONNP ---
<Christa Velasquez - Last Filed: 02/21/18 15:07> History of Present Illness Service: Nephrology Consult date: 02/21/18 Requesting Physician: Ganga Rizo Reason for Consult: End stage renal disease on hemodialysis Primary Care Provider: UNKNOWN Chief Complaint: Chest pain History of Present Illness: Patient is a 62-year-old male with past medical history of seizure disorder, gastroesophageal reflux disease, anxiety, depression, pancreatitis, previous MRSA, previous stroke, diabetes, hypertension, hyperlipidemia, and end stage renal disease renal failure with AV fistula graft left upper extremity and hemodialysis Tuesdays and Saturdays. Presented to emergency department with chest pain has known coronary artery disease and had 3-vessel diseased catheterized him on 08/20/2017. Diagnosed with non ST DE and s/p stent. Chest pain free now. Nephrology is consulted for management of end stage renal disease. Last hemodialysis was done on Wednesday. Regular scheduled days are Wednesday, , and Wednesday. Review of Systems Cardiovascular: Denies chest pain, Denies shortness of breath Respiratory: Denies chest congestion, Denies cough, Denies wheezing Gastrointestinal: Denies abdominal pain, Denies loose stools, Denies nausea, Denies vomiting PMFSH - History History Provided By: Patient (mi, cad, crf, dm, hhtn, sz; cath stent x 3) - Medical / Surgical Hx Neg / Unobtainable Medical Problems Denied: Yes - Medical History Medical History: Medical History (Last Reviewed 02/21/18 @ 07:58 by Zaina Jacobson MD) Neuropathy (Acute) AV fistula (Acute) Diabetes End stage renal disease History of amputation of great toe of both feet Seizure - Surgical History Surgical History: Surgical History (Last Updated 02/21/18 @ 07:58 by Zaina Jacobson MD) Knee joint replacement status (Acute) H/O heart artery stent History of cholecystectomy - Tobacco History Second Hand Smoke Exposure: No Smoking Status: Never smoker - Alcohol History How Often Do You Have a Drink Containing Alcohol: Never - Substance Use History Substance History: No History of Abuse - Travel History Recent Travel in the [place] Within the Last 8 Weeks: No Recent Travel Out of the Country Within the Last 8 Weeks: No - Immunization History Tetanus Immunization: >5 Years Hx Influenza Vaccine This Season: Yes Medications and Allergies Allergies Allergy/AdvReac Type Severity Reaction Status Date / Time *MDRO Multi-Drug Resistant AdvReac Intermediate Abdominal Uncoded 03/15/18 13:05 Organism Pain Home Medications Medication Instructions Recorded Confirmed Type aspirin 81 mg PO DAILY 02/20/18 03/15/18 History enalapril maleate 5 mg PO DAILY 02/20/18 03/15/18 History gabapentin 300 mg PO BID 02/20/18 03/15/18 History lisinopril 10 mg PO DAILY 02/20/18 03/15/18 History metoclopramide HCl 5 mg PO TID 02/20/18 03/15/18 History phenytoin sodium extended 200 mg PO BID 02/20/18 03/15/18 History [Phenytek] insulin detemir U-100 [Levemir 34 units SUB-Q DAILY 03/15/18 03/15/18 History U-100 Insulin] Active Medications: Active Medications Acetaminophen (Tylenol) 325 mg PO Q4H PRN PRN Reason: PAIN SCALE 1 TO 2 Amlodipine Besylate (Norvasc) 5 mg PO DAILY [facility] Last Admin: 02/21/18 10:13 Dose: Not Given Aspirin (Aspirin Chew) 81 mg PO DAILY [facility] Last Admin: 02/21/18 08:46 Dose: 81 mg Atorvastatin Calcium (Lipitor) 20 mg PO HS [facility] Dextrose (D50w Vial) 50 ml IV.PUSH UNSCH PRN PRN Reason: PER HYPOGLYCEMIA PROTOCOL Gabapentin (Neurontin) 300 mg PO BID [facility] Last Admin: 02/21/18 08:46 Dose: 300 mg Glucagon (Glucagon Inj) 1 mg OTHER PRN PRN PRN Reason: for Hypoglycemia Protocol Dopamine HCl/Dextrose (Dopamine 800 Mg/500 Ml Premix) 800 mg in 500 mls @ 47.627 mls/hr IV.CONT TITRATE PRN; Protocol PRN Reason: Per Protocol Last Admin: 02/21/18 04:09 Dose: 4 mcg/kg/min, 19.05 mls/hr Insulin Aspart (Novolog Insulin Correctional Sugar Inj) 0 unit SQ ACHS AND 3AM SKIP; Protocol Morphine Sulfate (Morphine Inj) 3 mg IV.PUSH Q30M PRN PRN Reason: BREAKTHROUGH PAIN Oxycodone/Acetaminophen (Percocet 10/325 Mg) 1 tab PO Q4H PRN PRN Reason: PAIN SCALE 6 TO 10 Phenytoin Sodium (Dilantin) 200 mg PO BID [facility] Last Admin: 02/21/18 08:47 Dose: 200 mg Sodium Chloride (Ns Flush) 2 ml IV.FLUSH UNSCH PRN PRN Reason: FLUSH AFTER USING IV ACCESS Last Admin: 02/20/18 20:01 Dose: 2 ml Sodium Chloride (Ns Flush) 2 ml IV.FLUSH BID [facility] Last Admin: 02/21/18 08:47 Dose: 2 ml Sodium Chloride (Ns Flush) 2 ml IV.FLUSH PRN PRN PRN Reason: FLUSH AFTER USING IV ACCESS Terbutaline Sulfate (Brethine Inj) 1 mg SQ ONCE PRN PRN Reason: Extravasation Ticagrelor (Brilinta) 90 mg PO BID [facility] Last Admin: 02/21/18 08:46 Dose: 90 mg Exam Vital signs: Vital Signs 02/20/18 19:35 02/20/18 19:40 02/20/18 19:42 Temperature 98.3 F 98.2 F Pulse Rate 109 H 101 H Respiratory Rate 16 16 Blood Pressure 221/95 H 221/95 H Blood Pressure [Right Arm] 109/55 L Pulse Oximetry 02/20/18 19:51 02/20/18 19:56 02/20/18 19:57 Temperature Pulse Rate 76 75 Respiratory Rate 16 Blood Pressure 167/74 H Blood Pressure [Right Arm] Pulse Oximetry 97 97 02/20/18 20:23 02/20/18 22:20 02/20/18 22:30 Temperature 98.0 F Pulse Rate 106 H 68 Respiratory Rate 16 16 Blood Pressure 217/97 H 114/39 L Blood Pressure [Right Arm] Pulse Oximetry 2 L 95 99 02/20/18 22:45 02/20/18 23:00 02/20/18 23:30 Temperature Pulse Rate 35 L 113 H 100 H Respiratory Rate Blood Pressure 78/25 L 228/71 H 189/96 H Blood Pressure [Right Arm] Pulse Oximetry 99 02/21/18 00:00 02/21/18 00:31 02/21/18 00:32 Temperature Pulse Rate 67 Respiratory Rate Blood Pressure 97/36 L 139/50 L 135/45 L Blood Pressure [Right Arm] Pulse Oximetry 02/21/18 03:00 02/21/18 07:00 02/21/18 07:15 Temperature 98.2 F 99 F Pulse Rate 61 62 65 Respiratory Rate 18 18 Blood Pressure 120/39 L 125/39 L 134/41 L Blood Pressure [Right Arm] Pulse Oximetry 97 97 02/21/18 07:18 02/21/18 07:21 02/21/18 07:24 Temperature Pulse Rate 64 61 62 Respiratory Rate Blood Pressure 130/42 L 130/37 L 135/38 L Blood Pressure [Right Arm] Pulse Oximetry 02/21/18 07:28 02/21/18 07:36 02/21/18 07:37 Temperature Pulse Rate 62 Respiratory Rate Blood Pressure 125/39 L 125/35 L Blood Pressure [Right Arm] Pulse Oximetry 98 02/21/18 07:45 02/21/18 08:00 02/21/18 08:15 Temperature Pulse Rate Respiratory Rate Blood Pressure 129/37 L 141/42 H 120/37 L Blood Pressure [Right Arm] Pulse Oximetry 02/21/18 08:30 02/21/18 08:45 02/21/18 09:00 Temperature Pulse Rate Respiratory Rate Blood Pressure 128/41 L 116/41 L 120/37 L Blood Pressure [Right Arm] Pulse Oximetry Intake & Output 02/20/18 02/21/18 02/21/18 18:59 06:59 18:59 Output Total 0 / 0 Balance 0 / 0 Weight 130 kg Output: Urine 0 / 0 Narrative: GENERAL: Well-nourished, well-developed patient. SKIN: Focused skin assessment warm/dry. [place] and dry. Drg on left foot HEAD: Normocephalic. EYES: No scleral icterus. No injection or drainage. NECK: Supple, trachea midline. No JVD or lymphadenopathy. CARDIOVASCULAR: Regular rate and rhythm without murmurs, gallops, or rubs. RESPIRATORY: Breath sounds equal bilaterally. No accessory muscle use. GASTROINTESTINAL: Abdomen soft, non-tender, nondistended. MUSCULOSKELETAL: No cyanosis, or edema. Left upper extremity AV fistula with positive thrill BACK: Nontender without obvious deformity. No CVA tenderness. Results - Lab Results 02/20/18 19:55 02/21/18 06:26 Most recent lab results ABG pH 7.38 (7.380-7.420) 02/20/18 19:50 ABG pCO2 40 mmHg (38-42) 02/20/18 19:50 ABG pO2 73 mmHg (61-120) 02/20/18 19:50 ABG HCO3 23 mmol/L (22-26) 02/20/18 19:50 Calcium 8.1 mg/dL (8.5-10.1) L D 02/21/18 06:26 Magnesium 2.2 mg/dL (1.5-2.5) 02/20/18 22:55 Assessment and Plan - Assessment (1) ESRD (end stage renal disease) Code(s): N18.6 - End stage renal disease Status: Acute Plan: End stage renal days with regular scheduled dialysis on Wednesday, , and Wednesday Last hemodialysis on Wednesday. Plan Avoid Gadolinium. Renal diet Monitor labs including phosphorus intermittently. Hyperkalemia with potassium level of 5.4 bedside hemodialysis planned for today Will repeat hemodialysis tomorrow to put back on scheduled days (2) Non-STEMI (non-ST elevated myocardial infarction) Code(s): I21.4 - Non-ST elevation (NSTEMI) myocardial infarction Status: Acute Plan: S/p cardiac cath with stent placement 02/20 (3) Bradycardia Code(s): R00.1 - Bradycardia, unspecified Status: Acute Plan: Possible Pacemaker tomorrow <Janina Rich - Last Filed: 04/28/18 17:19> History of Present Illness Primary Care Provider: UNKNOWN [facility] - Medical History Medical History: Medical History (Last Reviewed 02/21/18 @ 07:58 by Zaina Jacobson MD) Neuropathy (Acute) AV fistula (Acute) Diabetes End stage renal disease History of amputation of great toe of both feet Seizure - Surgical History Surgical History: Surgical History (Last Updated 02/21/18 @ 07:58 by Zaina Jacobson MD) Knee joint replacement status (Acute) H/O heart artery stent History of cholecystectomy Results - Lab Results 02/21/18 14:15 02/22/18 04:06 Most recent lab results ABG pH 7.38 (7.380-7.420) 02/20/18 19:50 ABG pCO2 40 mmHg (38-42) 02/20/18 19:50 ABG pO2 73 mmHg (61-120) 02/20/18 19:50 ABG HCO3 23 mmol/L (22-26) 02/20/18 19:50 Calcium 8.0 mg/dL (8.5-10.1) L 02/22/18 04:06 Phosphorus 4.8 mg/dL (2.5-4.9) 02/22/18 04:06 Magnesium 2.2 mg/dL (1.5-2.5) 02/20/18 22:55 Assessment and Plan - Assessment (1) ESRD (end stage renal disease) Code(s): N18.6 - End stage renal disease Status: Acute (2) Non-STEMI (non-ST elevated myocardial infarction) Code(s): I21.4 - Non-ST elevation (NSTEMI) myocardial infarction Status: Acute (3) Bradycardia Code(s): R00.1 - Bradycardia, unspecified Status: Acute (4) Anemia Code(s): D64.9 - Anemia, unspecified Status: Acute - Attending Attestation Pt seen with AGR[employer] ESTATE AGENT, agree with the A[employer] ESTATE AGENT assessment and plan
[2018-02-21] MEDS: Insulin NovoLOG Aspart Correctional Sugar Inj SQ SCH ×4 (11:15→20:38)
--- NOTE | 2018-02-21 11:45 | ECHRPT ---
Indication: CHEST PAIN CONCLUSIONS The left ventricular systolic function is low normal with an estimated ejection fraction in the rang e of 50- 55%. Normal left ventricular size. Mild concentric left ventricular hypertrophy. No regional wall motion abnormalities are present. There is mild tricuspid valve regurgitation. The estimated pulmonary arterial pressure is 53 mmHg. BP: / HR: Rhythm: Sinus Technical Quality:Fair FINDINGS LEFT VENTRICLE The left ventricular systolic function is low normal with an estimated ejection fraction in the rang e of 50- 55%. Normal left ventricular size. Mild concentric left ventricular hypertrophy. No regional wall motion abnormalities are present. RIGHT VENTRICLE Normal right ventricular size and systolic function. LEFT ATRIUM The left atrial size is normal. RIGHT ATRIUM The right atrial size is normal. ATRIAL SEPTUM Normal atrial septal thickness without atrial level shunting by limited color doppler interrogation. AORTA The aortic root and proximal ascending aorta are normal in size on limited imaging. MITRAL VALVE Structurally normal mitral valve. No mitral valve stenosis or regurgitation. AORTIC VALVE Trileaflet aortic valve. No aortic valve stenosis or regurgitation. TRICUSPID VALVE Structurally normal tricuspid valve. There is mild tricuspid valve regurgitation. The estimated pulmonary arterial pressure is 53 mmHg. PULMONARY VALVE The pulmonary valve is not well visualized. VESSELS The inferior vena cava is normal in size. PERICARDIUM No pericardial effusion. Henrry Gamez MD, FACC (Electronically Signed) Final Date:21 February 2018 11:42
--- NOTE | 2018-02-21 12:19 | P.PNCA ---
Subjective Interval history: No chest pain. No complaints Physical Exam Vital signs: Vital Signs 02/20/18 19:35 02/20/18 19:40 02/20/18 19:42 Temperature 98.3 F 98.2 F Pulse Rate 109 H 101 H Respiratory Rate 16 16 Blood Pressure 221/95 H 221/95 H Blood Pressure [Right Arm] 109/55 L Pulse Oximetry 02/20/18 19:51 02/20/18 19:56 02/20/18 19:57 Temperature Pulse Rate 76 75 Respiratory Rate 16 Blood Pressure 167/74 H Blood Pressure [Right Arm] Pulse Oximetry 97 97 02/20/18 20:23 02/20/18 22:20 02/20/18 22:30 Temperature 98.0 F Pulse Rate 106 H 68 Respiratory Rate 16 16 Blood Pressure 217/97 H 114/39 L Blood Pressure [Right Arm] Pulse Oximetry 2 L 95 99 02/20/18 22:45 02/20/18 23:00 02/20/18 23:30 Temperature Pulse Rate 35 L 113 H 100 H Respiratory Rate Blood Pressure 78/25 L 228/71 H 189/96 H Blood Pressure [Right Arm] Pulse Oximetry 99 02/21/18 00:00 02/21/18 00:31 02/21/18 00:32 Temperature Pulse Rate 67 Respiratory Rate Blood Pressure 97/36 L 139/50 L 135/45 L Blood Pressure [Right Arm] Pulse Oximetry 02/21/18 03:00 02/21/18 07:00 02/21/18 07:15 Temperature 98.2 F 99 F Pulse Rate 61 62 65 Respiratory Rate 18 18 Blood Pressure 120/39 L 125/39 L 134/41 L Blood Pressure [Right Arm] Pulse Oximetry 97 97 02/21/18 07:18 02/21/18 07:21 02/21/18 07:24 Temperature Pulse Rate 64 61 62 Respiratory Rate Blood Pressure 130/42 L 130/37 L 135/38 L Blood Pressure [Right Arm] Pulse Oximetry 02/21/18 07:28 02/21/18 07:36 02/21/18 07:37 Temperature Pulse Rate 62 Respiratory Rate Blood Pressure 125/39 L 125/35 L Blood Pressure [Right Arm] Pulse Oximetry 98 02/21/18 07:45 02/21/18 08:00 02/21/18 08:15 Temperature Pulse Rate Respiratory Rate Blood Pressure 129/37 L 141/42 H 120/37 L Blood Pressure [Right Arm] Pulse Oximetry 02/21/18 08:30 02/21/18 08:45 02/21/18 09:00 Temperature Pulse Rate Respiratory Rate Blood Pressure 128/41 L 116/41 L 120/37 L Blood Pressure [Right Arm] Pulse Oximetry Intake & Output 02/20/18 02/21/18 02/21/18 18:59 06:59 18:59 Output Total 0 / 0 Balance 0 / 0 Weight 130 kg Output: Urine 0 / 0 Narrative: Awake Chest clear anteriorly CV S1 S2 RRR, no S3 Abd soft Sheath pulled from RFA. He has a 1cm open superficial wound from Dr. Luigi Hdz's puncture - I wasn't sure if slightly infected so I chose not to use a closure on my separate puncture site no edema. Tel junctional. K+ 5.4 - hoping he will be dialyzed today. If remain dopamine dependent off beta carrie and with with normalization of K+ I plan PPM tomorrow Assessment and Plan - Assessment (1) Non-STEMI (non-ST elevated myocardial infarction) Code(s): I21.4 - Non-ST elevation (NSTEMI) myocardial infarction Status: Acute (2) CAD (coronary artery disease) Code(s): I25.10 - Atherosclerotic heart disease of [place] coronary artery without angina pectoris Status: Acute (3) Junctional bradycardia Code(s): R00.1 - Bradycardia, unspecified Status: Acute (4) ESRD (end stage renal disease) Code(s): N18.6 - End stage renal disease Status: Acute (5) Bradycardia Code(s): R00.1 - Bradycardia, unspecified Status: Acute (6) Stented coronary artery Code(s): Z95.5 - Presence of coronary angioplasty implant and graft Status: Acute - Plan Cont ASA and Brilinta for OM stent. Possible pacer tomorrow.
[2018-02-21] MEDS: oxyCODONE/Acetaminophen 10/325 Tablet PO PRN ×3 (13:44→23:34)
[2018-02-21] MEDS ORDERED: Iohexol 350 MG/ML 100 ML Vial (for Cath Lab) IVCONTRAST ONE (13:48)
[2018-02-21 15:21] LABS: Hematocrit 31.1 % (39.0-51.0); Hemoglobin 10.5 gm/dL (13.0-17.0); Mean Corpuscular HGB Conc 33.6 % (32.0-36.0); Mean Corpuscular Hemoglobin 33.6 pg (27.0-34.0); Mean Platelet Volume 7.7 fL (7.0-11.0); Platelet Count 162 th/mm3 (150-450); Red Blood Count 3.12 mil/mm3 (4.50-5.90); Red Cell Distribution Width 14.4 % (11.6-17.2); White Blood Count 11.8 th/mm3 (4.0-11.0)
[2018-02-21 17:01] LABS: Hemoglobin A1c 7.1 % (4.3-6.0)
--- NOTE | 2018-02-21 18:58 | P.PNWCN ---
Wound Care Nurse Consult Description: Received wound management consult of L heel from Doctor Jacobson Communicated with: HAMIDA Dunlap and Doctor Jacobson Recommendation: Please cleanse wounds to L plantar surface of foot and L heel with normal saline or wound cleanser and pat dry. Apply optifoam basic over wounds to L heel and L plantar foot. Secure dressing with rolled gauze and tape. Change dressing every 3 days or PRN if saturated or dislodged. Wound/Pressure Injury - Wound Left Heel Wound Staging: Stage III Wound Assessment: Ongoing Wound Type: Pressure Injury Is This a Chronic Wound: Yes Requested from Provider a Wound Care Consult: Yes (Wound care saw patient today) Length: 3 (~3cm) Width: 2 (~2cm) Depth: 0.1 (~0.1) Wound Bed Appearance: [place], Red Wound Bed Appearance: Wound bed presents with ~40% red non-granulation tissue and ~60% pink tissue Surrounding Tissue Appearance: [place] Surrounding Tissue Temperature: Warm Drainage Description: Serosanguinous Drainage Amount: Minimal Drainage Odor: No Odor Dressing Status: Changed Cleansing Solution: Saline Primary Dressing: ABD pad Cover Dressing: Gauze Roll/Wrap Tape Type: Paper Wound Dressing Change Date: 02/21/18 Wound Margin Description: well defined Left plantar foot Wound Assessment: Ongoing Wound Type: Traumatic Amputation (Diabetic foot ulcer) Is This a Chronic Wound: Yes Requested from Provider a Wound Care Consult: Yes (Wound care saw patient today) Length: 2 (~2cm) Width: 2 (~2cm) Depth: 0.1 (~0.1cm) Wound Bed Appearance: Red Wound Bed Appearance: Wound bed presents with ~100% red nongranular tissue Surrounding Tissue Appearance: [place] Surrounding Tissue Temperature: Warm Drainage Amount: Minimal Drainage Odor: No Odor Dressing Status: Changed Cleansing Solution: Saline Primary Dressing: telfa Cover Dressing: Gauze Roll/Wrap Tape Type: Paper Wound Dressing Change Date: 02/21/18 Wound Margin Description: Wound margins are well defined - Additional Information Patient seen on for evaluation of wound to L heel. Isabel is laying in bed upon food writer's arrival. Patient has a history of diabetes and has had wounds on his L foot for a while. Patient has a history of L toe amputations with only the L great toe and L fifth toe still remaining. Patient sees a oncology nurse navigator outpatient and has home care changing dressings are L foot every other day. Patient is unable to remember dressings used on his foot or home healthcare name. Dressing on L foot is dislodged.Removed the dressing of rolled gauze, xeroform, and ABD pads in place to reveal wound to L heel. Wound is deeper than partial thickness skin loss and appears pressure related. Wound is a stage 3, descriptions and measurements are noted above. L plantar surface of the foot presents with diabetic foot ulcer. Wound presents with a round shape and even well defined wound margins. Wound measurements and descriptions are also noted above. Cleansed open wounds to L foot with normal saline and patted dry. Applied abd pad to L heel and telfa to L plantar foot wound and secured dressings with rolled gauze and tape. RN to apply dressings as recommended when supplies arrive.
[2018-02-21 19:12] LABS: Hepatitits B Surface Antigen Nonreactive (Nonreactive)
[2018-02-21 19:44] LABS: Hepatitis A IgM Antibody Nonreactive (Nonreactive)
[2018-02-21] MEDS ORDERED: Chlorhexidine Gluconate 2% 1 Pack (2 Cloths) TOPICAL SCH (21:30)
[2018-02-21] MEDS ORDERED: Mupirocin 2% Nasal Oint Topical Syringe EACH NARE SCH (21:30)
[2018-02-21] MEDS ORDERED: ceFAZolin 2 GM Premix Inj 2 GM/100 ML BAG IV.SIG SCH (22:00)
[2018-02-21] MEDS ORDERED: Vancomycin Inj 1,000 MG in Sodium Chlor 0.9% Inj 250 ML IV.SIG SCH (22:00)
[2018-02-22] MEDS: Insulin NovoLOG Aspart Correctional Sugar Inj SQ SCH ×5 (04:00→20:54)
[2018-02-22 04:53] LABS: Albumin 3.3 g/dL (3.4-5.0); Carbon Dioxide 26.6 meq/L (21.0-32.0); Phosphorus 4.8 mg/dL (2.5-4.9); Potassium 4.8 meq/L (3.5-5.1)
[2018-02-22 04:55] LABS: Chol/HDL Ratio 3.07 Ratio; HDL Cholesterol 28.9 mg/dL (40.0-60.0)
[2018-02-22] MEDS ORDERED: Sugammadex Inj 200 MG/2 ML Vial IV.PUSH ONE (07:21)
[2018-02-22] MEDS ORDERED: Ketamine Inj 500 MG/10 ML Vial ONE (07:21)
[2018-02-22] MEDS ORDERED: Famotidine PF Inj 20 MG/2 ML Vial ONE (07:21)
--- NOTE | 2018-02-22 08:07 | P.PN ---
Subjective Interval history: seen in PACU post PM placement= tolerated procedure well telemetry in SR no complains BPs good off dopamine drip Physical Exam Vital signs: Vital Signs 02/21/18 08:15 02/21/18 08:30 02/21/18 08:45 Temperature Pulse Rate Respiratory Rate Blood Pressure 120/37 L 128/41 L 116/41 L Pulse Oximetry 02/21/18 09:00 02/21/18 09:30 02/21/18 10:00 Temperature Pulse Rate Respiratory Rate Blood Pressure 120/37 L 123/37 L 113/36 L Pulse Oximetry 97 02/21/18 10:30 02/21/18 11:00 02/21/18 15:00 Temperature 99 F 99 F Pulse Rate 77 77 Respiratory Rate 18 18 Blood Pressure 117/39 L 120/34 L 120/34 L Pulse Oximetry 97 96 02/21/18 16:00 02/21/18 19:00 02/21/18 21:45 Temperature 98.3 F Pulse Rate 73 Respiratory Rate 18 18 Blood Pressure 159/52 H Pulse Oximetry 95 96 02/21/18 23:00 02/22/18 03:00 02/22/18 07:00 Temperature 98.0 F 98.0 F Pulse Rate 64 65 65 Respiratory Rate 16 16 Blood Pressure 150/43 H 122/51 L 148/50 H Pulse Oximetry 97 97 Intake & Output 02/21/18 02/22/18 02/22/18 18:59 06:59 18:59 Intake Total 480 / 480 700 / 700 Output Total 25 / 25 350 / 350 Balance 455 / 455 350 / 350 Weight 128 kg Intake: Oral 480 / 480 700 / 700 Output: Urine 25 / 25 350 / 350 Other: Date of Last Bowel Movement 02/20/18 Narrative: Awake alert not in acute distress Anicteric Neck supple no nuchal rigidity, post procedure dressings in place Chest lungs no rales no wheezes Regular rhythm Abdomen is soft good bowel sounds Right groin cardiac cath sheath just pulled no bleeding Lower extremity no edema Left foot amputated second to fourth toe with left heel ulcer stage II with mild erythema Right foot post amputation of all toes except the fourth toe Moves all extremities spontaneously Results - Labs CBC & Chem 7: 02/21/18 14:15 02/22/18 04:06 Laboratory Results - last 24 hr 02/21/18 02/21/18 02/21/18 06:26 06:26 09:30 WBC RBC Hgb Hct MCV MCH MCHC RDW Plt Count MPV Sodium Potassium Chloride Carbon Dioxide Anion Gap BUN Creatinine Estimated GFR POC Glucose 154 H Random Glucose Hemoglobin A1c Calcium Phosphorus Total Bilirubin 0.5 Direct Bilirubin 0.1 Indirect Bilirubin 0.4 AST 31 ALT 29 Alkaline Phosphatase 130 H Total Creatine Kinase 127 Total Protein 6.9 Albumin 3.4 Triglycerides Cholesterol LDL Cholesterol, Calc HDL Cholesterol Cholesterol/HDL Ratio Hepatitis A IgM Ab Hep Bs Antigen Hep B Core IgM Ab Hep C IgG Ab 02/21/18 02/21/18 02/21/18 12:52 14:15 14:15 WBC 11.8 H RBC 3.12 L Hgb 10.5 L Hct 31.1 L MCV 100.0 MCH 33.6 MCHC 33.6 RDW 14.4 Plt Count 162 D MPV 7.7 Sodium Potassium Chloride Carbon Dioxide Anion Gap BUN Creatinine Estimated GFR POC Glucose 189 H Random Glucose Hemoglobin A1c 7.1 H Calcium Phosphorus Total Bilirubin Direct Bilirubin Indirect Bilirubin AST ALT Alkaline Phosphatase Total Creatine Kinase Total Protein Albumin Triglycerides Cholesterol LDL Cholesterol, Calc HDL Cholesterol Cholesterol/HDL Ratio Hepatitis A IgM Ab Hep Bs Antigen Hep B Core IgM Ab Hep C IgG Ab 02/21/18 02/21/18 02/21/18 14:15 17:08 20:35 WBC RBC Hgb Hct MCV MCH MCHC RDW Plt Count MPV Sodium Potassium Chloride Carbon Dioxide Anion Gap BUN Creatinine Estimated GFR POC Glucose 158 H 224 H Random Glucose Hemoglobin A1c Calcium Phosphorus Total Bilirubin Direct Bilirubin Indirect Bilirubin AST ALT Alkaline Phosphatase Total Creatine Kinase Total Protein Albumin Triglycerides Cholesterol LDL Cholesterol, Calc HDL Cholesterol Cholesterol/HDL Ratio Hepatitis A IgM Ab Nonreactive Hep Bs Antigen Nonreactive Hep B Core IgM Ab Nonreactive Hep C IgG Ab Nonreactive 02/22/18 02/22/18 02/22/18 03:58 04:06 07:54 WBC RBC Hgb Hct MCV MCH MCHC RDW Plt Count MPV Sodium 136 Potassium 4.8 Chloride 101 Carbon Dioxide 26.6 Anion Gap 8 BUN 47 H Creatinine 5.74 H Estimated GFR 10 L POC Glucose 156 H 159 H Random Glucose 144 H Hemoglobin A1c Calcium 8.0 L Phosphorus 4.8 Total Bilirubin Direct Bilirubin Indirect Bilirubin AST ALT Alkaline Phosphatase Total Creatine Kinase Total Protein Albumin 3.3 L Triglycerides 168 H Cholesterol 89 L LDL Cholesterol, Calc 27 HDL Cholesterol 28.9 L Cholesterol/HDL Ratio 3.07 Hepatitis A IgM Ab Hep Bs Antigen Hep B Core IgM Ab Hep C IgG Ab Assessment and Plan - Plan 62-year-old male presenting with chest pain Acute coronary syndrome status post emergent cardiac cath with stenting of left OM History of hypertension Hypotension, bradycardia-on presentation S/P PM placement- today 02/22 Patient continued on aspirin Brilinta -As outpatient was on clonidine 0.2 mg 3 times daily, Lopressor 50 twice daily. - DC -No beta-carrie/clonidine because of bradycardia - On amlodipine 5 mg dialy - OFF dopamine drip - after PM was placed- good BPs -Cardiology following - start statin- Lipitor 20 mg hs End-stage renal disease on hemodialysis - for hemodailysis today hyperkalemia -improved on presentation. -Received calcium gluconate and bicarb. -Nephrology ff -Hold MARIBETH inhibitors for now History of seizure disorder last seizure episode was 10 years ago Diabetic neuropathy -Continue on phenytoin, gabapentin. Diabetes type 2 insulin requiring. - Per patient he is on Lantus 34 units every morning - We will check a hemoglobin A1c-7.1 - blood sugars- 160-170s - continue on Sliding scale regular insulin for now. Left heel wound - wound care team ff - cleanse wounds to L plantar surface of foot and L heel with normal saline or wound cleanser and pat dry. Apply optifoam basic over wounds to L heel and L plantar foot. Secure dressing with rolled gauze and tape. Change dressing every 3 days or PRN if saturated or dislodged. -
--- NOTE | 2018-02-22 10:38 | CATHPROC ---
[employer] HIS Report Study Information Study Number Admission Scheduled Start Study Start [id number] 02/20/2018 02/22/2018 Feb 22 2018 6:56AM Referring Institution Admit Source Facility Department 1 Other [facility] Physician and Clinical Staff Initial Ganga Mason Arborist Climber Maya Petersen,RT(R) TECH2 Arborist Climber Cyn Diaz,PROSTHETIC TECHNICIAN TECH2 Other Anesthesia, NOTE SPECIALIST Recorder Miryam Bacon,HAMIDA Scrub Sheila Maldonado RCIS Procedures Performed Procedure Location (Site) Vessel Name Lead Insertion Venogram Subclav. Vein (Rt) Subclavian Vein Equipment Time Mixer Lever Operator Description Size Mfg Part Number Used/Scraped INTRODUCER SET, [id number] 08:49 [employer] FR 5 Used MICROPUNCTURE *[id number] INTRODUCER SET, [id number] 08:49 [employer] FR 5 Used MICROPUNCTURE *[id number] 07:01 Contrib BLANKET,WARM AIR CCL * Used *[id number] 07:01 Contrib SUTURE, STRIP PLUS 1/2" * Used *[id number] 07:01 MEDLINE PACER ADHESIVE, MASTISOL 2/3CC 2/3CC 0523-48 Used 07:01 MEDLINE PACER BHATT, LIMB * 2530 *[id number] Used [id number] 07:01 MEDLINE PACER PACK, PACER CUSTOM * Used *[id number] 07:01 MEDLINE PACER PEN, SKIN DUAL W/ RULER * Used *[id number] 08:02 [employer] PACER SAFE SHEATH, FR7, 13CM FR 7 [id number] Used 08:02 [employer] MEDICAL PACER SAFE SHEATH, FR7, 13CM FR 7 [id number] Used 08:04 Needle Sponge Count 2 22 Used 08:03 Needle Sponge Count 30 1 Used 08:03 Needle Sponge Count 5 5 Used 09:42 Needle Sponge Count 6 6 Used 08:39 [employer] OMNIPAQUE, 300 MG, 50ML 50ML [id number] Used [id number] *[id number] SUTURE, 2-0 VICRYL [SH] ([id number]) SUTURE, 3-0 VICRYL [SH] ([id number]) SUTURE, 4-0 MONOCRYL [PS2] ([id number]) [facility] PAD, ELECTROSURGICAL 07:01 * [id number] *[id number] Used SURGICAL GROUNDING ORANGE LEAD, CAPSURE FIX NOVUS, 4076-45CM 09:10 [employer] 45CM Used 45CM *[id number] LEAD, CAPSURE FIX NOVUS, 4076-52CM 08:57 [employer] 52CM Used 52CM *[id number] 09:15 [employer] PACEMAKER, HUI XT DR MOSLEY-DDDR [id number] Used [id number] 07:01 [facility] ADRIENNE. / * Used *32909 Equipment Model, Serial, Lot Number and Expiration Data Description Model Number Serial Number Lot Number Expiration Date LEAD, CAPSURE FIX NOVUS, 45CM 4076 [id number] 01-19-2020 LEAD, CAPSURE FIX NOVUS, 52CM 4076 [id number] 01-19-2020 PACEMAKER, HUI XT [id number] 07-18-2019 History: Allergies Allergy Reaction *MDRO Multi-Drug Resistant Abdominal Pain Organism History: Risk Factors Hypertension Dyslipidemia Yes Yes Cerebrovascular Diabetes Disease Labs Hgb (g/dl) Hct (%) RBC (MIL/MM3) WBC (l/cumm) Platelets (thousands) 11.60-17.00 35.00-51.00 4.00-5.90 4.00-11.00 150.00-450.00 10.0 31 3.1 11.8 162 Glucose (mg/dl) BUN (mg/dl) Creatinine (mg/dl) BUN:Creatinine (1:x) 74.00-106.00 7.00-18.00 0.50-1.30 10.00-20.00 144 47 5.7 8.2 Na (meq/l) K (meq/l) 136.00-145.00 3.50-5.10 136 4.8 INR (PTT:PT) 0.90-1.10 1 Medication Medication Total Dose (Bolus/Oral) Medication Total Dosage/Unit 2% XYLOCAINE 150 mL Medications (Bolus/Oral) Medication Time Given Dosage/Unit Administered By Reason 2% XYLOCAINE 02/22/2018 8:37:59 AM 50 mL Anesthesia, NOTE SPECIALIST 50 mL 2% XYLOCAINE given in lab by Anesthesia, NOTE SPECIALIST in Right upper chest via Subcutaneous. Ordered by Ganga Rizo. 2% XYLOCAINE 02/22/2018 8:42:39 AM 50 mL Ganga Rizo 50 mL 2% XYLOCAINE given in lab by Anesthesia, NOTE SPECIALIST in Right upper via Subcutaneous. Ordered by Ganga Medrano. 2% XYLOCAINE 02/22/2018 10:13:00 AM 50 mL Ganga Rizo 50 mL 2% XYLOCAINE given in lab by Ganga Rizo in Left chest via Subcutaneous. Medication (Drip) Medication Time Given Dosage/Unit Concentration/Unit Diluent (ml) Solution ANCEF 02/22/2018 8:33:08 AM 2 g 2 g ANCEF given in lab by Anesthesia, NOTE SPECIALIST via Peripheral IV. Ordered by Ganga Rizo. Reason: As pe r physicians verbal order. DOPAMINE HCL 02/22/2018 7:25:57 AM 3 mcg/kg/min 800 mg 500 D5W Patient arrived on 3 mcg/kg/min DOPAMINE HCL in Right Forearm via Peripheral IV. Pump/Drip Flow = 14. 4 ml/hr using D5W with a concentration of 800 mg in 500 ml. VANCOMYCIN DRIP 02/22/2018 8:15:34 AM 1 g 1 g VANCOMYCIN DRIP given in lab by Anesthesia, NOTE SPECIALIST via Peripheral IV. Ordered by Ganga Rizo. Belinda son: As per physicians verbal order. Chronological Log Time Study Chronological Log 7:25:43 Patient arrived via Bed. 7:25:44 Patient Name, D.O.B, / Armband Verified By R.N. 7:25:45 Consent signed by the physician and the patient and verified by the [facility] staff. 7:25:48 Pre-op and post- op instructions given; patient acknowledges understanding of instructions. 7:25:50 Disposable Defibrillator Pads Placed On Patient. 7:25:55 Verbal Stimulation=2 Physical Stimulation=2 Airway=2 Respiration=2 TOTAL=8. (0=absent, 1=li mited, 2=present) Patient arrived on 3 mcg/kg/min DOPAMINE HCL in Right Forearm via Peripheral IV. Pump/Drip Boni w = 14.4 ml/hr using 7:25:57 D5W with a concentration of 800 mg in 500 ml. 7:26:02 Patient Warmer Placed on the Table. 7:26:38 Pura Prominences Protected 7:38:33 MD arrived. 7:40:41 Anesthesia at bedside. Assumes care of patient. 7:54:16 BGM 156 7:57:55 Patient has been NPO for More than 6Hrs. 7:58:01 Skin Breakdown- Multiple. See nurses notes in main chart 7:58:43 A # 20 IV was noted in the Forearm (right). Grade = 0 Dopamine infusing 7:58:44 A # 20 IV was noted in the Wrist (right). Grade = 0 site leaks anesthesia not using this si te. 7:58:46 History and physical on the chart. 7:58:54 Table restraints applied according to hospital policy 7:58:57 2% CHLORHEXIDINE GLUCONATE WASH AND NASAL SWIPE DONE PRIOR TO PROCEDURE. 7:58:59 Bovie ground pad applied to: right thigh 7:59:18 Upper Chest Prepped Times Two. 8:00:13 Anesthesia trying to get 2nd iv site. 1 g VANCOMYCIN DRIP given in lab by Anesthesia, NOTE SPECIALIST via Peripheral IV. Ordered by Osorio Rizo. Reason: As per 8:15:34 physicians verbal order. 8:21:41 A # 22 IV was noted in the Forearm (right). Grade = 0 initiated by SANA covarrubias good blood retur n. 8:24:07 Reference ECG taken 2 g ANCEF given in lab by Anesthesia, NOTE SPECIALIST via Peripheral IV. Ordered by Ganga Rizo. Reason: As per physicians 8:33:08 verbal order. Time Out. Correct patient, procedure, procedure equipment, site and side verified with physicia n present. Time 8:37:22 concurred by MD, individual staff and NOTE SPECIALIST. Time Out #2 - Consents verified, patient in correct position, all results are labled and displa yed, safety precautions 8:37:23 taken, antibiotics administered. Time out concurred by MD, individual staff and NOTE SPECIALIST in procedu re 8:37:56 Case Start 50 mL 2% XYLOCAINE given in lab by Anesthesia, NOTE SPECIALIST in Right upper chest via Subcutaneous. Orde red by Darrius, 8:37:59 Ganga. 8:38:57 The Subclav. Vein (Rt) was manually injected with 10 cc's of contrast. OMNIPAQUE, 300 MG, 50 ML 50ML used. 8:42:39 50 mL 2% XYLOCAINE given in lab by Anesthesia, NOTE SPECIALIST in Right upper via Subcutaneous. Ordered by Ganga Rizo. 8:44:00 Surgical Incision Made. 8:45:58 Vascular access was obtained in the Subclav. Vein (Rt). 8:46:08 Wire inserted 8:46:13 Vascular access was obtained in the Subclav. Vein (Lft. 8:46:20 Wire inserted A INTRODUCER SET, MICROPUNCTURE FR 5 was advanced into the Subclav. Vein (Rt) using the Modifie d Seldinger 8:54:56 technique. A INTRODUCER SET, MICROPUNCTURE FR 5 was advanced into the Subclav. Vein (Rt) using the Modifie d Seldinger 8:55:15 technique. 8:55:24 A pocket was created at the R Upper Chest. A SAFE SHEATH, FR7, 13CM FR 7 was exchanged in the Subclav. Vein (Rt). This was necessary in or mike for catheter 8:56:00 support. A SAFE SHEATH, FR7, 13CM FR 7 was exchanged in the Subclav. Vein (Rt). This was necessary in or mike for catheter 8:56:25 support. 8:58:00 A LEAD, CAPSURE FIX NOVUS, 52CM 52CM was inserted and positioned in the RV. 9:02:36 Lead placement verified under fluoroscopy 9:07:48 The RV lead impedance and threshold being tested. 9:09:32 The RV lead was sutured to the fascia. 9:09:42 A LEAD, CAPSURE FIX NOVUS, 45CM 45CM was inserted and positioned in the RA. 9:10:12 Lead placement verified under fluoroscopy 9:12:51 The Atrial lead impedance and threshold is being tested. 9:15:46 The Atrial lead was sutured to the fascia. 9:22:56 A PACEMAKER, HUI XT DR QAE-DDDR was connected and placed in the pocket. 9:25:12 Pocket flushed with antibiotic solution Second Sponge And Instrument Count Done by Ganga Rizo. 9:41:23 Hypo's: 6, Sponges: 40, Bovie/scratch: 2 Sutures: 5~, Blades: 2, Instruments: ~INSTRU~, Syveck Patches: ~SYVECK PATCH~ 9:52:38 Implant Procedure was performed. 9:52:43 A PPM Implant . (Dual) 9:55:57 PACU called. Spoke to Maya 9:57:01 Bedside Report will be given. 10:00:20 The pocket was closed. The Final Sponge And Instrument Count Done by Ganga Rizo. 10:03:24 Hypo's: 6, Sponges: 40 sponges, Bovie/scratch: 2 Sutures: 5, Blades: 2, Instruments: 27, Syveck Patches: 0 10:03:59 Steri-strips and a sterile dressing applied to site. 10:08:43 Left Upper Chest Reprepped Times Two. 10:13:00 50 mL 2% XYLOCAINE given in lab by Ganga Rizo in Left chest via Subcutaneous. 10:15:36 Incision made to loop site. Loop recorder removed. 10:15:36 Loop Recorder Removed. 10:23:45 The loop removal surgical incision was closed. 10:29:20 Case End (Physician broke scrub) 10:31:03 Steri-strips and a sterile dressing applied to site. The Final Sponge And Instrument Count Done by Sheila Maldonado RCIS. 10:31:06 Hypo's: 6, Sponges: 40, Bovie/scratch: 2 Sutures: 6, Blades: 2, Instruments: 27, Syveck Patches: ~SYVECK PATCH~ 10:33:02 Bedside Report will be given. 10:33:03 Implant Procedure was performed. 10:33:11 A PPM Implant . (Dual) 10:34:10 LMA REMOVED 10:36:10 PACU called. 10:36:24 Sterile dressing applied to site 10:36:26 No case complications noted. 10:36:28 Cine recording checked. 10:38:05 Implantable Device card placed in patient's chart. 10:38:57 A sling was placed on the affected arm. 10:39:10 [facility] Study - Contrast Media Used In Study Contrast Total Opened (mL) Total Used (mL) Total Wasted (mL) Omnipaque 0 0 0 End Study - Maximum Contrast Load Max Contrast Load (mL) 112.3 End Study - Radiation Exposure Fluoro Time (minutes) 8.8 End Study - Patient Disposition Complications Transferred To Telemetry Bed
[2018-02-22] MEDS ORDERED: fentaNYL Citrate Inj 100 MCG/2 ML Ampul ONE (11:08)
--- NOTE | 2018-02-22 11:24 | MP ---
cc: Ganga Rizo MD DATE OF OPERATION: 02/22/2018 ADDENDUM: The pacemaker is a Medtronic model Cherelle XT TR MRI, model W1DRO1, serial number [id number]. It is programmed AAIR at a rate of 60-130. The atrial lead is a Medtronic 4076, length 45 cm, serial number [id number], with a P-wave of 1.2 millivolts, a threshold of 1.3 volts, impedance of 644 ohms. Ventricular lead is a Medtronic 4076, length 52 cm, serial number [id number], with an R-wave of 9.9 millivolts and a threshold of 0.8 volts. The loop recorder that was removed was a LINQ, model [id number] that was implanted 04/22/2017. MD DARRELL Torres/bs , 10:36 AM , 10:42 AM
[2018-02-22] MEDS: amLODIPine 5 MG Tablet PO SCH (11:41)
[2018-02-22] MEDS: Phenytoin Sodium 100 MG Capsule PO SCH ×2 (11:42→20:43)
[2018-02-22] MEDS: Gabapentin 300 MG Capsule PO SCH ×2 (11:42→20:43)
--- NOTE | 2018-02-22 11:42 | XR ---
EXAM DATE: 02/22/2018 11:34 AM EDT AGE/SEX: 62 years / Male INDICATIONS: Post pacemaker. Evaluate for pneumothorax. CLINICAL DATA: This is the patient's initial encounter. Patient reports that signs and symptoms have been present for 1 day and indicates a pain score of 3/10. MEDICAL/SURGICAL HISTORY: . Diabetes. Hypertension. Cholecystectomy . COMPARISON: [facility] [place], CHEST 1V SINGLE AP, 02/20/2018. . FINDINGS: A pacing implement is present with control pack over the right upper chest. There is no evidence of p neumothorax or other complication of placement. There is slight atelectasis in the left lung base. Misty ngs otherwise clear. Cardiac contours are satisfactory for technique and projection. CONCLUSION: Satisfactory pacer placement. No pneumothorax. Electronically signed by: Bautista Calloway MD 02/22/2018 11:40 AM EDT
[2018-02-22] MEDS ORDERED: Lidocaine PF 1% Inj 5 ML Syringe INFILTRATN ONE (12:00)
[2018-02-22] MEDS ORDERED: Phenylephrine/NS 1000 MCG/10ML Syringe IV.PUSH ONE (12:00)
--- NOTE | 2018-02-22 12:32 | MP ---
cc: Ganga Rizo MD DATE OF OPERATION: 02/22/2018 PREOPERATIVE DIAGNOSIS: Symptomatic bradycardia. POSTOPERATIVE DIAGNOSIS: Symptomatic bradycardia. PROCEDURE PERFORMED: Insertion of dual-chamber rate-responsive pacemaker via the right subclavian approach, removal of insertable loop recorder from the left chest. DESCRIPTION OF PROCEDURE: The patient was brought to the cardiac catheterization lab in the fasting state after informed consent was obtained for the above procedures. He received 1 gram of vancomycin and 2 grams of Ancef for preoperative antibiotics. The upper chest was prepped and draped in sterile fashion. Using 1% lidocaine for local anesthesia, an incision was made parallel to and below the right clavicle. I chose a spot lateral to the previous vascath entry to minimize the risk of infection. Using blunt and sharp dissection a pocket was fashioned above the pectoralis muscle. Contrast administration lit up the subclavian vein. I easily punctured it with a micropuncture set and placed 2 guidewires into the SVC. Over the first guidewire, a 7-Luxembourger peel-away sheath was introduced; using appropriate stylets the ventricular lead was inserted and screwed into the right ventricle near the apex. Good sensing and pacing thresholds were achieved. Over the second guidewire, a 7-Luxembourger peel-away sheath was introduced and through this, the atrial lead was screwed into the right atrial appendage with good sensing and pacing thresholds. Both leads were then secured to underlying fascia using three 2-0 silk sutures for each Silastic cuff. The leads were then connected to the pacemaker generator, which was positioned in the floor of the pocket with leads coiled behind it. The wound was irrigated with antibiotic solution and then closed in layers using interrupted 2-0 Vicryl sutures for the deep fascial layers, interrupted 3-0 Vicryl sutures for the subcutaneous layers, followed by running 4-0 Monocryl stitch and then Steri-Strips and a 4 x 4 dressing. The upper chest was then reprepped and using a 1% lidocaine a very small incision was placed over the end of the loop recorder and the loop recorder was then removed from its pocket. I then closed that wound with 4-0 Vicryl in a running subcuticular stitch. There were no complications. ESTIMATED BLOOD LOSS: Total blood loss for the procedure was about 200 mL. The patient's blood pressure was somewhat low at the end of the case, this may be from the anesthesia. Low-dose dopamine is on board currently. Hopefully that can be weaned off. MD DARRELL Torres/josephine/aliyah , 10:31 AM , 10:38 AM
[2018-02-22] MEDS: oxyCODONE/Acetaminophen 10/325 Tablet PO PRN ×2 (15:47→20:43)
--- NOTE | 2018-02-22 15:54 | P.PNNP ---
Subjective Interval history: S/p pacemaker placement today. Hemodialysis completes. Reports increased at pacemaker site. Denies any shortness of breath. <Christa Velasquez - Last Filed: 02/22/18 15:47> Physical Exam Vital signs: Vital Signs 02/21/18 16:00 02/21/18 19:00 02/21/18 21:45 Temperature 98.3 F Pulse Rate 73 Respiratory Rate 18 18 Blood Pressure 159/52 H Pulse Oximetry 95 96 02/21/18 23:00 02/22/18 03:00 02/22/18 07:00 Temperature 98.0 F 98.0 F Pulse Rate 64 65 65 Respiratory Rate 16 16 Blood Pressure 150/43 H 122/51 L 148/50 H Pulse Oximetry 97 97 02/22/18 10:58 02/22/18 11:00 02/22/18 11:15 Temperature 98.0 F Pulse Rate 73 75 73 Respiratory Rate 20 18 18 Blood Pressure 114/51 L 104/46 L 116/46 L Pulse Oximetry 100 99 02/22/18 11:30 02/22/18 11:45 02/22/18 15:23 Temperature 97.6 F Pulse Rate 72 70 81 Respiratory Rate 18 15 20 Blood Pressure 126/55 L 109/45 L 114/48 L Pulse Oximetry 96 99 99 Intake & Output 02/21/18 02/22/18 02/22/18 18:59 06:59 18:59 Intake Total 480 / 480 700 / 700 Output Total 2525 / 2525 350 / 350 1500 / 1500 Balance -2045 / -2045 350 / 350 -1500 / -1500 Weight 128 kg Intake: Oral 480 / 480 700 / 700 Output: Urine 25 / 25 350 / 350 Hemodialysis Amount 2500 / 2500 1500 / 1500 Other: Date of Last Bowel Movement 02/20/18 02/21/18 Narrative: GENERAL: Well-nourished, well-developed patient. SKIN: warm and dry. NECK: Supple, trachea midline. No JVD or lymphadenopathy. CARDIOVASCULAR: Regular rate and rhythm without murmurs, gallops, or rubs. Pacemaker left chest wall with dressing on. RESPIRATORY: Breath sounds equal bilaterally. No accessory muscle use. GASTROINTESTINAL: Abdomen soft, non-tender, nondistended. MUSCULOSKELETAL: No cyanosis, or edema. Left upper extremity AV fistula with positive thrill BACK: Nontender without obvious deformity. No CVA tenderness. <Christa Velasquez - Last Filed: 02/22/18 15:47> Vital signs: Vital Signs 02/22/18 15:23 02/22/18 16:00 02/22/18 17:00 Temperature 97.6 F Pulse Rate 81 78 81 Respiratory Rate 20 Blood Pressure 114/48 L Pulse Oximetry 99 02/22/18 18:00 02/22/18 19:00 02/22/18 20:00 Temperature 97.3 F L Pulse Rate 81 75 76 Respiratory Rate 18 Blood Pressure 156/64 H Pulse Oximetry 100 02/22/18 21:00 02/22/18 22:00 02/22/18 23:00 Temperature Pulse Rate 74 70 67 Respiratory Rate Blood Pressure Pulse Oximetry 02/23/18 00:00 02/23/18 00:03 02/23/18 00:06 Temperature 97.8 F Pulse Rate 69 68 Respiratory Rate 16 18 Blood Pressure 143/51 H Pulse Oximetry 99 99 02/23/18 01:41 02/23/18 03:00 02/23/18 04:00 Temperature Pulse Rate 69 68 65 Respiratory Rate Blood Pressure Pulse Oximetry 02/23/18 04:01 02/23/18 04:02 02/23/18 04:10 Temperature 98.1 F Pulse Rate 68 Respiratory Rate 18 16 Blood Pressure 143/51 H Pulse Oximetry 96 98 02/23/18 05:00 02/23/18 06:00 02/23/18 07:00 Temperature 97.7 F Pulse Rate 67 69 69 Respiratory Rate 16 Blood Pressure 135/34 L Pulse Oximetry 02/23/18 11:46 Temperature Pulse Rate Respiratory Rate Blood Pressure Pulse Oximetry 97 Intake & Output 02/22/18 02/23/18 02/23/18 18:59 06:59 18:59 Intake Total 480 / 480 330 / 330 Output Total 1500 / 1500 150 / 150 Balance -1020 / -1020 180 / 180 Weight 132 kg Intake: Oral 480 / 480 330 / 330 Output: Urine 150 / 150 Hemodialysis Amount 1500 / 1500 Other: Date of Last Bowel Movement 02/21/18 # Bowel Movements 0 <Janina Rich - Last Filed: 02/23/18 11:54> Assessment and Plan - Assessment (1) ESRD (end stage renal disease) Code(s): N18.6 - End stage renal disease Status: Acute Plan: End stage renal days with regular scheduled dialysis on Wednesday, , and Wednesday Plan Avoid Gadolinium. Renal diet Monitor labs including phosphorus intermittently. Hemodialysis today tolerated well with removal of 1.5 liters (2) Non-STEMI (non-ST elevated myocardial infarction) Code(s): I21.4 - Non-ST elevation (NSTEMI) myocardial infarction Status: Acute Plan: S/p cardiac cath with stent placement 02/20 S/p Pacemaker placement 02/22 (3) Bradycardia Code(s): R00.1 - Bradycardia, unspecified Status: Acute Plan: S/P pacemaker (4) Anemia Code(s): D64.9 - Anemia, unspecified Status: Acute Plan: HGB 10.5 Continue Epogen with dialysis <Christa Velasquez - Last Filed: 02/22/18 15:47> - Attending Attestation Patient seen and examined; agree with the plan and recommendations of the reaming machine operator for plastic <Janina Rich - Last Filed: 02/23/18 11:54>
--- NOTE | 2018-02-22 16:21 | ECG ---
Date Performed: 02/20/2018 Time Performed: 19:34:45 PTAGE: 62 years EKG: PROBABLE SINUS TACHYCARDIA WITH FIRST DEGREE AV BLOCK SUBTLE INFERIOR ST ELEVATION, PARTICU LARLY LEAD III BUT ALSO IN LEAD AVF WITH PRECORDIAL ST DEPRESSION. CONSIDER ACUTE INFERIOR [place] Clinica l correlation is required BORDERLINE RIGHT AXIS DEVIATION NONSPECIFIC ST & T-WAVE ABNORMALITY ABNORMA L RHYTHM ECG NO PREVIOUS TRACING DOCTOR: Jaden Villarreal Interpretating Date/Time 02/22/2018 16:20:47
--- NOTE | 2018-02-22 16:23 | ECG ---
Date Performed: 02/20/2018 Time Performed: 22:30:54 PTAGE: 62 years EKG: Sinus rhythm with 1st degree A-V block Lateral ST-T changes are nonspecific Compared to previous tracing, sinus r ate is slower. Minimal inferior ST elevation still appreciated. Previously seen reciprocal changes jenkins ve improved Abnormal ECG PREVIOUS TRACING : 02/20/2018 19.34 DOCTOR: Jaden Villarreal Interpretating Date/Time 02/22/2018 16:21:35
--- NOTE | 2018-02-22 16:24 | ECG ---
Date Performed: 02/21/2018 Time Performed: 05:35:22 PTAGE: 62 years EKG: Probable accelerated junctional rhythm. Lateral ST-T changes are nonspecific Compared to pr evious tracing, P waves are no longer appreciated consistently. Previously seen inferior ST elevation s have resolved. Abnormal ECG PREVIOUS TRACING : 02/20/2018 22.30 DOCTOR: Jaden Villarreal Interpretating Date/Time 02/22/2018 16:22:12
[2018-02-23] MEDS: oxyCODONE/Acetaminophen 10/325 Tablet PO PRN ×3 (03:40→16:31)
[2018-02-23] MEDS: Insulin NovoLOG Aspart Correctional Sugar Inj SQ SCH ×4 (03:40→17:22)
--- NOTE | 2018-02-23 08:34 | P.PNNP ---
Subjective Interval history: No acute events overnight. Denies any shortness of breath. Reports pain a pacemaker site and that he did not sleep last night. <Christa Velasquez - Last Filed: 02/23/18 08:32> Physical Exam Vital signs: Vital Signs 02/22/18 10:58 02/22/18 11:00 02/22/18 11:15 Temperature 98.0 F Pulse Rate 73 75 73 Respiratory Rate 20 18 18 Blood Pressure 114/51 L 104/46 L 116/46 L Pulse Oximetry 100 99 02/22/18 11:30 02/22/18 11:45 02/22/18 15:23 Temperature 97.6 F Pulse Rate 72 70 81 Respiratory Rate 18 15 20 Blood Pressure 126/55 L 109/45 L 114/48 L Pulse Oximetry 96 99 99 02/22/18 16:00 02/22/18 17:00 02/22/18 18:00 Temperature Pulse Rate 78 81 81 Respiratory Rate Blood Pressure Pulse Oximetry 02/22/18 19:00 02/22/18 20:00 02/22/18 21:00 Temperature 97.3 F L Pulse Rate 75 76 74 Respiratory Rate 18 Blood Pressure 156/64 H Pulse Oximetry 100 02/22/18 22:00 02/22/18 23:00 02/23/18 00:00 Temperature Pulse Rate 70 67 69 Respiratory Rate 16 Blood Pressure Pulse Oximetry 02/23/18 00:03 02/23/18 00:06 02/23/18 01:41 Temperature 97.8 F Pulse Rate 68 69 Respiratory Rate 18 Blood Pressure 143/51 H Pulse Oximetry 99 99 02/23/18 03:00 02/23/18 04:00 02/23/18 04:01 Temperature Pulse Rate 68 65 Respiratory Rate Blood Pressure Pulse Oximetry 96 02/23/18 04:02 02/23/18 04:10 02/23/18 05:00 Temperature 98.1 F Pulse Rate 68 67 Respiratory Rate 18 16 Blood Pressure 143/51 H Pulse Oximetry 98 02/23/18 06:00 Temperature Pulse Rate 69 Respiratory Rate Blood Pressure Pulse Oximetry Intake & Output 02/22/18 02/23/18 02/23/18 18:59 06:59 18:59 Intake Total 480 / 480 330 / 330 Output Total 1500 / 1500 150 / 150 Balance -1020 / -1020 180 / 180 Weight 132 kg Intake: Oral 480 / 480 330 / 330 Output: Urine 150 / 150 Hemodialysis Amount 1500 / 1500 Other: Date of Last Bowel Movement 02/21/18 # Bowel Movements 0 Narrative: GENERAL: Well-nourished, well-developed patient. SKIN: warm and dry. NECK: Supple, trachea midline. No JVD or lymphadenopathy. CARDIOVASCULAR: Regular rate and rhythm without murmurs, gallops, or rubs. Pacemaker left chest wall with dressing on. RESPIRATORY: Breath sounds equal bilaterally. No accessory muscle use. GASTROINTESTINAL: Abdomen soft, non-tender, nondistended. MUSCULOSKELETAL: No cyanosis, or edema. Left upper extremity AV fistula with positive thrill BACK: Nontender without obvious deformity. No CVA tenderness. <Christa Velasquez - Last Filed: 02/23/18 08:32> Vital signs: Vital Signs 02/22/18 15:23 02/22/18 16:00 02/22/18 17:00 Temperature 97.6 F Pulse Rate 81 78 81 Respiratory Rate 20 Blood Pressure 114/48 L Pulse Oximetry 99 02/22/18 18:00 02/22/18 19:00 02/22/18 20:00 Temperature 97.3 F L Pulse Rate 81 75 76 Respiratory Rate 18 Blood Pressure 156/64 H Pulse Oximetry 100 02/22/18 21:00 02/22/18 22:00 02/22/18 23:00 Temperature Pulse Rate 74 70 67 Respiratory Rate Blood Pressure Pulse Oximetry 02/23/18 00:00 02/23/18 00:03 02/23/18 00:06 Temperature 97.8 F Pulse Rate 69 68 Respiratory Rate 16 18 Blood Pressure 143/51 H Pulse Oximetry 99 99 02/23/18 01:41 02/23/18 03:00 02/23/18 04:00 Temperature Pulse Rate 69 68 65 Respiratory Rate Blood Pressure Pulse Oximetry 02/23/18 04:01 02/23/18 04:02 02/23/18 04:10 Temperature 98.1 F Pulse Rate 68 Respiratory Rate 18 16 Blood Pressure 143/51 H Pulse Oximetry 96 98 02/23/18 05:00 02/23/18 06:00 02/23/18 07:00 Temperature 97.7 F Pulse Rate 67 69 69 Respiratory Rate 16 Blood Pressure 135/34 L Pulse Oximetry 02/23/18 11:46 Temperature Pulse Rate Respiratory Rate Blood Pressure Pulse Oximetry 97 Intake & Output 02/22/18 02/23/18 02/23/18 18:59 06:59 18:59 Intake Total 480 / 480 330 / 330 Output Total 1500 / 1500 150 / 150 Balance -1020 / -1020 180 / 180 Weight 132 kg Intake: Oral 480 / 480 330 / 330 Output: Urine 150 / 150 Hemodialysis Amount 1500 / 1500 Other: Date of Last Bowel Movement 02/21/18 # Bowel Movements 0 <Janina Rich - Last Filed: 02/23/18 11:55> Assessment and Plan - Assessment (1) ESRD (end stage renal disease) Code(s): N18.6 - End stage renal disease Status: Acute Plan: End stage renal days with regular scheduled dialysis on Wednesday, , and Wednesday Plan Avoid Gadolinium. Renal diet Monitor labs including phosphorus intermittently. Hemodialysis yesterday with removal of 1.5 liters Hemodialysis tomorrow (2) Non-STEMI (non-ST elevated myocardial infarction) Code(s): I21.4 - Non-ST elevation (NSTEMI) myocardial infarction Status: Acute Plan: S/p cardiac cath with stent placement 02/20 S/p Pacemaker placement 02/22 (3) Bradycardia Code(s): R00.1 - Bradycardia, unspecified Status: Acute Plan: S/P pacemaker (4) Anemia Code(s): D64.9 - Anemia, unspecified Status: Acute Plan: HGB stable Continue Epogen with dialysis <Christa Velasquez - Last Filed: 02/23/18 08:32> - Attending Attestation Patient seen and examined; agree with the plan and recommendations of the remelt furnace expediter <Janina Rich S - Last Filed: 02/23/18 11:55>
[2018-02-23] MEDS: Phenytoin Sodium 100 MG Capsule PO SCH ×2 (10:09→21:18)
[2018-02-23] MEDS: amLODIPine 5 MG Tablet PO SCH (10:09)
[2018-02-23] MEDS: Gabapentin 300 MG Capsule PO SCH (10:09)
--- NOTE | 2018-02-23 16:51 | P.PNIM ---
Subjective Interval history: Patient reports he is feeling okay. No new issues today. Physical Exam Vital signs: Vital Signs 02/22/18 17:00 02/22/18 18:00 02/22/18 19:00 Temperature 97.3 F L Pulse Rate 81 81 75 Respiratory Rate 18 Blood Pressure 156/64 H Pulse Oximetry 100 02/22/18 20:00 02/22/18 21:00 02/22/18 22:00 Temperature Pulse Rate 76 74 70 Respiratory Rate Blood Pressure Pulse Oximetry 02/22/18 23:00 02/23/18 00:00 02/23/18 00:03 Temperature Pulse Rate 67 69 Respiratory Rate 16 Blood Pressure Pulse Oximetry 99 02/23/18 00:06 02/23/18 01:41 02/23/18 03:00 Temperature 97.8 F Pulse Rate 68 69 68 Respiratory Rate 18 Blood Pressure 143/51 H Pulse Oximetry 99 02/23/18 04:00 02/23/18 04:01 02/23/18 04:02 Temperature 98.1 F Pulse Rate 65 68 Respiratory Rate 18 Blood Pressure 143/51 H Pulse Oximetry 96 98 02/23/18 04:10 02/23/18 05:00 02/23/18 06:00 Temperature Pulse Rate 67 69 Respiratory Rate 16 Blood Pressure Pulse Oximetry 02/23/18 07:00 02/23/18 08:00 02/23/18 09:00 Temperature 97.7 F Pulse Rate 64 66 66 Respiratory Rate 16 Blood Pressure 135/34 L Pulse Oximetry 02/23/18 10:00 02/23/18 11:00 02/23/18 11:46 Temperature Pulse Rate 74 73 Respiratory Rate Blood Pressure Pulse Oximetry 97 02/23/18 12:00 02/23/18 13:00 02/23/18 14:00 Temperature Pulse Rate 68 70 72 Respiratory Rate Blood Pressure Pulse Oximetry Intake & Output 02/22/18 02/23/18 02/23/18 18:59 06:59 18:59 Intake Total 480 / 480 330 / 330 Output Total 1500 / 1500 150 / 150 Balance -1020 / -1020 180 / 180 Weight 132 kg Intake: Oral 480 / 480 330 / 330 Output: Urine 150 / 150 Hemodialysis Amount 1500 / 1500 Other: Date of Last Bowel Movement 02/21/18 # Bowel Movements 0 Narrative: GENERAL: Well-nourished, well-developed patient. SKIN: warm and dry. NECK: Supple, trachea midline. No JVD or lymphadenopathy. CARDIOVASCULAR: Regular rate and rhythm without murmurs, gallops, or rubs. Left chest dressing is clean and intact. RESPIRATORY: Breath sounds equal bilaterally. No accessory muscle use. GASTROINTESTINAL: Abdomen soft, non-tender, nondistended. MUSCULOSKELETAL: No cyanosis, or edema. BACK: Nontender without obvious deformity. No CVA tenderness. Results - Labs CBC & Chem 7: 02/21/18 14:15 02/22/18 04:06 Laboratory Results - last 24 hr 02/22/18 02/22/18 02/23/18 17:08 20:41 03:30 POC Glucose 206 H 293 H 196 H 02/23/18 02/23/18 02/23/18 08:32 12:25 16:35 POC Glucose 187 H 223 H 261 H Assessment and Plan - Plan 62-year-old male presenting with chest pain Acute coronary syndrome status post emergent cardiac cath with stenting of left OM History of hypertension Hypotension, bradycardia-on presentation S/P PM placement- today 02/22 Patient continued on aspirin Brilinta -As outpatient was on clonidine 0.2 mg 3 times daily, Lopressor 50 twice daily. - DCed -No beta-carrie/clonidine because of bradycardia - On amlodipine 5 mg dialy - OFF dopamine drip - after PM was placed- good BPs -Cardiology following - start statin- Lipitor 20 mg hs End-stage renal disease on hemodialysis -nephrology following hyperkalemia -improved on presentation. -Received calcium gluconate and bicarb. History of seizure disorder last seizure episode was 10 years ago Diabetic neuropathy -Continue on phenytoin, gabapentin. Diabetes type 2 insulin requiring. - Per patient he is on Lantus 34 units every morning - continue on Sliding scale regular insulin for now. Left heel wound - wound care team ff - cleanse wounds to L plantar surface. Need outpatient follow up with Podiatry. Discharge Planning: Can DC once cleared by Cardiology
--- NOTE | 2018-02-23 18:12 | P.DS ---
Date of admission: 02/20/18 20:35 Primary care physician: UNKNOWN Brief History from admission: 62 Y/O male who presented with chest pain. Found to be severely hypertensive and bradycardic. Patient was emergently taken for heart cath and stent placement. DS: Diagnosis - Discharge Diagnosis (1) Non-STEMI (non-ST elevated myocardial infarction) Status: Acute (2) Bradycardia Status: Acute (3) CAD (coronary artery disease) Status: Acute (4) ESRD (end stage renal disease) Status: Acute (5) Junctional bradycardia Status: Acute (6) Neuropathy Status: Acute DS: Medications - Discharge Medications Prescriptions: amlodipine [Norvasc] 5 mg PO DAILY #30 tab atorvastatin 20 mg PO HS #30 tab ticagrelor [Brilinta] 90 mg PO BID #60 tab DS: Summary Hospital Course: 62-year-old male presenting with chest pain. Treatment course detailed below: Acute coronary syndrome status post emergent cardiac cath with stenting of left OM History of hypertension Hypotension, bradycardia-on presentation Patient continued on aspirin, Brilinta S/P PM placement- 02/22 - On amlodipine 5 mg daily. Lipitor 20 mg hs - S/P dopamine drip - after PM was placed- good BPs -Cardiology followed the patient - MARIBETH-I held due to kidney disease End-stage renal disease on hemodialysis -nephrology followed the patient hyperkalemia -resolved -Received calcium gluconate and bicarb. History of seizure disorder last seizure episode was 10 years ago Diabetic neuropathy -Continue on phenytoin, gabapentin. Diabetes type 2 insulin requiring. - Continue home dose insulin on discharge Left heel wound - wound care team followed the patient - cleanse wounds to L plantar surface. Recommend outpatient follow up with Podiatry. - Time Spent with Patient Total time spent providing and/or coordinating discharge services: Less than 30 minutes - Quality: VTE Deep Vein Thrombosis/Pulmonary Embolism Present on Admission: No Exam Vital signs: Vital Signs 02/22/18 19:00 02/22/18 20:00 02/22/18 21:00 Temperature 97.3 F L Pulse Rate 75 76 74 Respiratory Rate 18 Blood Pressure 156/64 H Pulse Oximetry 100 02/22/18 22:00 02/22/18 23:00 02/23/18 00:00 Temperature Pulse Rate 70 67 69 Respiratory Rate 16 Blood Pressure Pulse Oximetry 02/23/18 00:03 02/23/18 00:06 02/23/18 01:41 Temperature 97.8 F Pulse Rate 68 69 Respiratory Rate 18 Blood Pressure 143/51 H Pulse Oximetry 99 99 02/23/18 03:00 02/23/18 04:00 02/23/18 04:01 Temperature Pulse Rate 68 65 Respiratory Rate Blood Pressure Pulse Oximetry 96 02/23/18 04:02 02/23/18 04:10 02/23/18 05:00 Temperature 98.1 F Pulse Rate 68 67 Respiratory Rate 18 16 Blood Pressure 143/51 H Pulse Oximetry 98 02/23/18 06:00 02/23/18 07:00 02/23/18 08:00 Temperature 97.7 F Pulse Rate 69 64 66 Respiratory Rate 16 Blood Pressure 135/34 L Pulse Oximetry 02/23/18 09:00 02/23/18 10:00 02/23/18 11:00 Temperature Pulse Rate 66 74 73 Respiratory Rate Blood Pressure Pulse Oximetry 02/23/18 11:46 02/23/18 12:00 02/23/18 13:00 Temperature Pulse Rate 68 70 Respiratory Rate Blood Pressure Pulse Oximetry 97 02/23/18 14:00 Temperature Pulse Rate 72 Respiratory Rate Blood Pressure Pulse Oximetry Intake & Output 02/22/18 02/23/18 02/23/18 18:59 06:59 18:59 Intake Total 480 / 480 330 / 330 960 / 960 Output Total 1500 / 1500 150 / 150 0 / 0 Balance -1020 / -1020 180 / 180 960 / 960 Weight 132 kg Intake: Oral 480 / 480 330 / 330 960 / 960 Output: Urine 150 / 150 0 / 0 Hemodialysis Amount 1500 / 1500 Other: Date of Last Bowel Movement 02/21/18 # Bowel Movements 0 Narrative: GENERAL: This is a well-nourished, well-developed patient, in no apparent distress. CARDIOVASCULAR: Regular rate and rhythm without murmurs, gallops, or rubs. RESPIRATORY: Clear to auscultation. Breath sounds equal bilaterally. No wheezes , rales, or rhonchi. GASTROINTESTINAL: Abdomen soft, non-tender, nondistended. Normal active bowel sounds MUSCULOSKELETAL: Extremities without clubbing, cyanosis, or edema. NEURO: Alert & Oriented x4 to person, place, time, situation. Moves all ext x4 Results Procedures completed during hospitalization: Heart cath with stent placement. Pacemaker placement Labs on day of discharge: Labs from last 24 hours 02/23/18 02/23/18 02/23/18 16:35 12:25 08:32 POC Glucose 261 H 223 H 187 H 02/23/18 02/22/18 03:30 20:41 POC Glucose 196 H 293 H - Impressions ITS Impressions Chest X-Ray 02/22/18 00:00 CONCLUSION: Satisfactory pacer placement. No pneumothorax. Discharge Plan - Discharge Disposition Patient Disposition: 01 Discharge Home - Discharge Condition Condition: Fair - Discharge Order Discharge Orders: Discharge Order (Routine); Ordered 02/23/18 Ordered By: Judith Verma - Physicians Team Primary Care Provider: UNKNOWN, Attending Provider: Judith Verma Other Providers: Humana,Humana ; Ganga Rizo MD ; Eduar Sandhu MD
--- NOTE | 2018-02-23 18:20 | P.PNCA ---
Subjective Interval history: Follow up for Dr. Rizo Mild pain at pacemaker site, no other complaints Physical Exam Vital signs: Vital Signs 02/22/18 19:00 02/22/18 20:00 02/22/18 21:00 Temperature 97.3 F L Pulse Rate 75 76 74 Respiratory Rate 18 Blood Pressure 156/64 H Pulse Oximetry 100 02/22/18 22:00 02/22/18 23:00 02/23/18 00:00 Temperature Pulse Rate 70 67 69 Respiratory Rate 16 Blood Pressure Pulse Oximetry 02/23/18 00:03 02/23/18 00:06 02/23/18 01:41 Temperature 97.8 F Pulse Rate 68 69 Respiratory Rate 18 Blood Pressure 143/51 H Pulse Oximetry 99 99 02/23/18 03:00 02/23/18 04:00 02/23/18 04:01 Temperature Pulse Rate 68 65 Respiratory Rate Blood Pressure Pulse Oximetry 96 02/23/18 04:02 02/23/18 04:10 02/23/18 05:00 Temperature 98.1 F Pulse Rate 68 67 Respiratory Rate 18 16 Blood Pressure 143/51 H Pulse Oximetry 98 02/23/18 06:00 02/23/18 07:00 02/23/18 08:00 Temperature 97.7 F Pulse Rate 69 64 66 Respiratory Rate 16 Blood Pressure 135/34 L Pulse Oximetry 02/23/18 09:00 02/23/18 10:00 02/23/18 11:00 Temperature Pulse Rate 66 74 73 Respiratory Rate Blood Pressure Pulse Oximetry 02/23/18 11:46 02/23/18 12:00 02/23/18 13:00 Temperature Pulse Rate 68 70 Respiratory Rate Blood Pressure Pulse Oximetry 97 02/23/18 14:00 Temperature Pulse Rate 72 Respiratory Rate Blood Pressure Pulse Oximetry Intake & Output 02/22/18 02/23/18 02/23/18 18:59 06:59 18:59 Intake Total 480 / 480 330 / 330 960 / 960 Output Total 1500 / 1500 150 / 150 0 / 0 Balance -1020 / -1020 180 / 180 960 / 960 Weight 132 kg Intake: Oral 480 / 480 330 / 330 960 / 960 Output: Urine 150 / 150 0 / 0 Hemodialysis Amount 1500 / 1500 Other: Date of Last Bowel Movement 02/21/18 # Bowel Movements 0 Narrative: GENERAL: Well-nourished, well-developed patient. SKIN: warm and dry. NECK: Supple, trachea midline. No JVD or lymphadenopathy. CARDIOVASCULAR: Regular rate and rhythm without murmurs, gallops, or rubs. PPM site clean/dry. Loop recorder removal site clean/dry. RESPIRATORY: Breath sounds equal bilaterally. No accessory muscle use. GASTROINTESTINAL: Abdomen soft, non-tender, nondistended. MUSCULOSKELETAL: No cyanosis, or edema. BACK: Nontender without obvious deformity. No CVA tenderness. Assessment and Plan - Assessment (1) Non-STEMI (non-ST elevated myocardial infarction) Code(s): I21.4 - Non-ST elevation (NSTEMI) myocardial infarction Status: Acute (2) CAD (coronary artery disease) Code(s): I25.10 - Atherosclerotic heart disease of [place] coronary artery without angina pectoris Status: Acute (3) Junctional bradycardia Code(s): R00.1 - Bradycardia, unspecified Status: Acute (4) ESRD (end stage renal disease) Code(s): N18.6 - End stage renal disease Status: Acute (5) Bradycardia Code(s): R00.1 - Bradycardia, unspecified Status: Acute (6) Stented coronary artery Code(s): Z95.5 - Presence of coronary angioplasty implant and graft Status: Acute - Plan 1) [place]/NSTEMI s/p DEVIN to OM 2) Significant bradycardia requiring PPM placement 3) PPM site with no problems Will need wound check in 1 week 4) ASA/Brilinta/Statin BB held to keep from 100% RV pacing MARIBETH-I held due to kidney disease Can be reevaluated by nephrology outpatient 5) Cardiovascularly stable for discharge today Follow up with Dr. Rizo
== END 2018-02-23 21:40 | disposition home or self-care (01) ==
LOC: NEPC 19:29 → NEDA 20:35 → HCVI 22:24 → HCIS 02-22 07:30
PROVIDERS: ADMIT Family Medicine; ATTEND Family Medicine
PROC: [UNRECOGNIZED PROCEDURE] (2018-02-22 07:30)

== ENCOUNTER 2018-05-21 00:15 | Inpatient (IN) ==
[2018-05-21] MEDS ORDERED: Morphine Inj 4 MG/ML Vial IV.PUSH ONE ×2 (00:28→01:35)
--- NOTE | 2018-05-21 00:55 | XR ---
EXAM DATE: 05/21/2018 12:52 AM EST AGE/SEX: 63 years / Male INDICATIONS: Chest pain. CLINICAL DATA: This is the patient's initial encounter. Patient reports that signs and symptoms have been present for 1 day and indicates a pain score of 9/10. MEDICAL/SURGICAL HISTORY: Diabetes mellitus type II. Hypertension. Cholecystectomy. Total kne e replacement, left. Multiple toe amputations, bilaterally. Left hip replacement. COMPARISON: [facility] [place] 1[place] SING[place] AP, 02/22/2018. . FINDINGS: A single AP view of the chest demonstrates the lungs to be symmetrically aerated without evidence of mass, infiltrate or effusion. The cardiomediastinal contours are unremarkable. Osseous structures a re intact. The right hemidiaphragm is elevated. Bipolar right subclavian pacer. Numerous healed left -sided rib fractures CONCLUSION: Small lung volumes with an elevated right hemidiaphragm. Right subclavian bipolar pacer Electronically signed by: Bryan Flaherty MD 05/21/2018 12:54 AM EST
[2018-05-21 01:27] LABS: Baso % (Auto) 0.5 % (0.0-2.0); Eos # (Auto) 0.1 th/mm3 (0.0-0.4); Eos % (Auto) 2.1 % (0.0-4.0); Hematocrit 26.7 % (39.0-51.0); Hemoglobin 9.2 gm/dL (13.0-17.0); Lymph # (Auto) 0.6 th/mm3 (1.0-4.8); Lymph % (Auto) 8.8 % (9.0-44.0); Mean Corpuscular HGB Conc 34.6 % (32.0-36.0); Mean Corpuscular Hemoglobin 33.7 pg (27.0-34.0); Mean Corpuscular Volume 97.4 fL (80.0-100.0); Mean Platelet Volume 7.8 fL (7.0-11.0); Mono # (Auto) 0.8 th/mm3 (0.0-0.9); Mono % (Auto) 11.9 % (0.0-8.0); Neut # (Auto) 5.1 th/mm3 (1.8-7.7); Neut % (Auto) 76.7 % (16.0-70.0); Platelet Count 154 th/mm3 (150-450); Red Blood Count 2.74 mil/mm3 (4.50-5.90); Red Cell Distribution Width 14.6 % (11.6-17.2); White Blood Count 6.7 th/mm3 (4.0-11.0)
[2018-05-21 01:49] LABS: Alanine Aminotransferase 37 U/L (12-78); Anion Gap 8 meq/L (5-15); Aspartate Aminotransferase 28 U/L (15-37); Blood Urea Nitrogen 44 mg/dL (7-18); Calcium 7.8 mg/dL (8.5-10.1); Carbon Dioxide 25.5 meq/L (21.0-32.0); Chloride 101 meq/L (98-107); Glomerular Filtration Rate 13 mL/min (>89); Glucose,Random 124 mg/dL (74-106); Lipase 176 U/L (73-393); Potassium 5.4 meq/L (3.5-5.1); Sodium 134 meq/L (136-145)
[2018-05-21 01:53] LABS: Alkaline Phosphatase 160 U/L (45-117); Total Protein 7.5 g/dL (6.4-8.2)
--- NOTE | 2018-05-21 02:23 | ED ---
HPI General Chief complaint: Chest Pain Stated complaint: Medical,Evac Time Seen by Provider: 05/21/18 00:28 Source: patient Mode of arrival: ambulatory Limitations: no limitations History of Present Illness HPI narrative: This is a 63-year-old male with a history of end-stage renal disease, diabetes, and coronary artery disease having last had a stent placed in February of this year who presents to the emergency department with chest discomfort that is been intermittent over the past several days and constant over the past hour and a half in the center of his chest, feeling like someone is stabbing him, radiating to the left arm associated with some nausea. He says this feels similar to when he has had heart attacks in the past. He follows with Dr. Mahoney. He reports that they have been having trouble getting fluid off of him in dialysis and his weight has been increasing. He denies any new or asymmetric leg swelling. He received aspirin with EMS and nitroglycerin which did not improve his symptoms. Related Data Home Medications Medication Instructions Recorded Confirmed aspirin 81 mg PO DAILY 02/20/18 05/21/18 enalapril maleate 5 mg PO DAILY 02/20/18 05/21/18 gabapentin 300 mg PO BID 02/20/18 05/21/18 lisinopril 10 mg PO DAILY 02/20/18 05/21/18 metoclopramide HCl 5 mg PO TID 02/20/18 05/21/18 phenytoin sodium extended 200 mg PO BID 02/20/18 05/21/18 [Phenytek] insulin detemir U-100 [Levemir 34 units SUB-Q DAILY 03/15/18 05/21/18 U-100 Insulin] Previous Rx's Medication Instructions Recorded amlodipine [Norvasc] 5 mg PO DAILY #30 tab 02/23/18 atorvastatin 20 mg PO HS #30 tab 02/23/18 ticagrelor [Brilinta] 90 mg PO BID #60 tab 02/23/18 methocarbamol [Robaxin] 500 mg PO QID #12 tab 03/15/18 Allergies Allergy/AdvReac Type Severity Reaction Status Date / Time *MDRO Multi-Drug Resistant AdvReac Intermediate Abdominal Uncoded 05/21/18 00:22 Organism Pain Review of Systems ROS: all other systems reviewed are negative [facility] Medical History Medical History Neuropathy (Acute) AV fistula (Acute) Coronary artery disease (Acute) Diabetes (Acute) End stage renal disease (Acute) History of amputation of great toe of both feet (Acute) Seizure (Acute) Surgical History Surgical History Knee joint replacement status (Acute) History of cholecystectomy (Acute) Social History Social History Substance History: No History of Abuse Second Hand Smoke Exposure: No Smoking Status: Never smoker How Often Do You Have a Drink Containing Alcohol: Never Recent Travel in [facility] within the Last 8 Weeks: No Recent Out of Country Travel within the Last 8 Weeks: No Immunization History Tetanus Immunization: <5 Years Exam Narrative Exam Narrative: GENERAL:Chronically ill appearing, no acute distress SKIN: 2 cm ulceration on the base of the left foot, skin break down on the anterior foot, ulcerations of left 2nd and third toes with clear discharge HEAD: Atraumatic. Normocephalic. EYES: Pupils equal and round. No injection or drainage. ENT: Moist mucous membranes NECK: Trachea midline. CARDIOVASCULAR: Regular rate and rhythm. No murmur appreciated. 2+ bilateral lower extremity edema RESPIRATORY: Clear to auscultation. Breath sounds equal bilaterally. GASTROINTESTINAL: Abdomen soft, non-tender, nondistended. MUSCULOSKELETAL: No obvious deformities. NEUROLOGICAL: Awake and alert. No obvious cranial nerve deficits. Moving all extremities. PSYCHIATRIC: Appropriate mood and affect; insight and judgment normal. Course Initial Documented Vital Signs Temperature 98.6 F 05/21/18 00:18 Pulse Rate 82 05/21/18 00:18 Respiratory Rate 16 05/21/18 00:18 Blood Pressure 130/59 L 05/21/18 00:18 Pulse Oximetry 96 05/21/18 00:18 Last Documented Vital Signs Temperature 98.6 F 05/21/18 00:18 Pulse Rate 77 05/21/18 02:00 Respiratory Rate 21 05/21/18 02:00 Blood Pressure 136/63 05/21/18 02:00 Pulse Oximetry 99 05/21/18 02:00 Medical Decision Making MDM Narrative Medical decision making narrative: This is a 63-year-old male who presents to the emergency department with a discrete episode of chest pain that started this evening. The patient has a significant history of coronary artery disease and had a stent placed most recently in February of this year. EKG demonstrates some mild ST elevation in lead III alone with some ST depression in the lateral leads. This is similar to his EKG from February though lateral ST depressions is improved. Vital signs are reassuring with no hypoxia to suggest pulmonary embolism. Labs demonstrate a normal troponin. I think patient requires observation for serial cardiac enzymes and evaluation by cardiology. I do not suspect pulmonary embolism at this time given his clinical symptoms and appearance. He also requires dialysis tomorrow and has some poorly healing wounds on his feet so he was admitted to the hospitalist service. Medical Screen Exam Complete: Yes Emergency Medical Condition: Yes Differential Diagnosis Differential Diagnosis: Angina, nSTEMI, STEMI, pulmonary embolism, congestive heart failure, volume overload Medical Records Medical records reviewed: Yes I reviewed the patient's medical records. Patient had a stent performed in February of this year Lab Data Lab results reviewed: Yes I reviewed the patient's lab results. Result diagrams: 05/21/18 01:05 05/21/18 01:05 Lab Results 05/21/18 05/21/18 05/21/18 Range/Units 01:05 01:05 01:05 WBC 6.7 (4.0-11.0) th/mm3 RBC 2.74 L (4.50-5.90) mil/mm3 Hgb 9.2 L (13.0-17.0) gm/dL Hct 26.7 L (39.0-51.0) % MCV 97.4 (80.0-100.0) fL MCH 33.7 (27.0-34.0) pg MCHC 34.6 (32.0-36.0) % RDW 14.6 (11.6-17.2) % Plt Count 154 (150-450) th/mm3 MPV 7.8 (7.0-11.0) fL Neut % (Auto) 76.7 H (16.0-70.0) % Lymph % (Auto) 8.8 L (9.0-44.0) % [place] % (Auto) 11.9 H (0.0-8.0) % Eos % (Auto) 2.1 (0.0-4.0) % Baso % (Auto) 0.5 (0.0-2.0) % Neut # (Auto) 5.1 (1.8-7.7) th/mm3 Lymph # (Auto) 0.6 L (1.0-4.8) th/mm3 [place] # (Auto) 0.8 (0.0-0.9) th/mm3 Eos # (Auto) 0.1 (0.0-0.4) th/mm3 Baso # (Auto) 0.0 (0.0-0.2) th/mm3 WBC Differential . Differential Comment Auto diff final Sodium 134 L (136-145) meq/L Potassium 5.4 H (3.5-5.1) meq/L Chloride 101 (98-107) meq/L Carbon Dioxide 25.5 (21.0-32.0) meq/L Anion Gap 8 (5-15) meq/L BUN 44 H (7-18) mg/dL Creatinine 4.50 H (0.60-1.30) mg/dL Estimated GFR 13 L (>89) mL/min Random Glucose 124 H (74-106) mg/dL Calcium 7.8 L (8.5-10.1) mg/dL Total Bilirubin 0.4 (0.2-1.0) mg/dL AST 28 (15-37) U/L ALT 37 (12-78) U/L Alkaline Phosphatase 160 H (45-117) U/L Troponin I Less than 0.02 L (0.02-0.05) ng/mL B-Natriuretic Peptide 254 H (0-100) pg/mL Total Protein 7.5 (6.4-8.2) g/dL Albumin 3.0 L (3.4-5.0) g/dL Lipase 176 (73-393) U/L Imaging Data Radiologist's impression: Chest X-Ray 05/21/18 00:28 CONCLUSION: Small lung volumes with an elevated right hemidiaphragm. Right subclavian bipolar pacer ECG Data EKG Prior to Arrival: Yes Attestation: I personally reviewed and interpreted this ECG as follows: Prior ECG tracings: available for review Interpretation: Normal sinus rhythm, mild ST elevation in lead III isolated, ST depression in the lateral leads improved from EKG in February, QTC is 427 Discharge Plan Discharge Disposition Patient Disposition: 30 Still Patient Discharge Condition Condition: Stable Discharge Details Diagnosis: Chest pain Physicians Team ED Provider: Tika Moreno Primary Care Provider: Primary Care Physici,No Rxs /Orders / Referrals /Forms Prescriptions: No Action enalapril maleate 5 mg Tablet 5 mg PO DAILY RF: 0 phenytoin sodium extended [Phenytek] 200 mg Capsule 200 mg PO BID RF: 0 lisinopril 10 mg Tablet 10 mg PO DAILY RF: 0 gabapentin 300 mg Capsule 300 mg PO BID RF: 0 aspirin 81 mg Tablet,Chewable 81 mg PO DAILY RF: 0 metoclopramide HCl 10 mg Tablet 5 mg PO TID RF: 0 atorvastatin 20 mg Tablet 20 mg PO HS Qty: 30 RF: 0 amlodipine [Norvasc] 5 mg Tablet 5 mg PO DAILY Qty: 30 RF: 0 ticagrelor [Brilinta] 90 mg Tablet 90 mg PO BID Qty: 60 RF: 0 insulin detemir U-100 [Levemir U-100 Insulin] 100 unit/mL Solution 34 units Sub-Q DAILY RF: 0 methocarbamol [Robaxin] 500 mg tablet 500 mg PO QID Qty: 12 RF: 0 Discharge Instructions Patient Printed Instructions: Chest Pain (ED) Discharge Interventions Interventions: Vital Signs Last Done: 05/21/18 01:00 Status ED Status: With Doctor
[2018-05-21] MEDS ORDERED: Bisacodyl 10 MG Supp RECTAL PRN (02:32)
[2018-05-21] MEDS ORDERED: Acetaminophen 325 MG Tablet PO PRN ×2 (02:32→10:10)
[2018-05-21] MEDS ORDERED: Dextrose 50% in Water 50 ML Vial IV.PUSH PRN (02:32)
[2018-05-21] MEDS: Morphine Sulfate Inj 2 MG/ML Vial IV.PUSH PRN ×2 (03:12→06:54)
--- NOTE | 2018-05-21 03:19 | P.HPIM ---
History of Present Illness Primary Care Physician: No Primary Care Physician History of Present Illness: This is a 63-year-old male with a PMH of HTN, Hyperlipidemia, ESRD on HD T// and CAD s/p Stent who was brought to the ER by EMS for c/o chest pain. Recent admit 02/20-02/23/18 for NSTEMI w/ hypotension and bradycardia, taken emergently to Cath s/p Stent to Left OM and d/c'd on ASA/Brilinta, also underwent Pacemaker Placement 02/22/18 and following w/ Dr. Villarreal. Per patient, had sudden onset of stabbing chest pain earlier tonight, pain is severe, 04/13, w/ radiation to LUE, associated w/ SOB and diaphoresis. S/p ASA and NTG by EMS w/ no improvement. On arrival, BP 137/61, HR 80, O2 sat 99% on 2L NC, Afebrile. CBC essentially unremarkable. Chemistry at baseline. Troponin negative. BNP 254. CXR with elevated right hemidiaphragm, right subclavian bipolar pacer. - Diagnosis (1) Chest pain (2) ESRD (end stage renal disease) on dialysis (3) DM (diabetes mellitus) Review of Systems PAST FAMILY HISTORY: Reviewed. No h/o DM or CAD All other systems reviewed negative except as stated in HPI PMFSH - History History Provided By: Patient - Medical History Medical History: Medical History (Last Updated 05/21/18 @ 02:25 by Tika Moreno MD) Neuropathy (Acute) AV fistula (Acute) Coronary artery disease Diabetes End stage renal disease History of amputation of great toe of both feet Seizure - Surgical History Surgical History: Surgical History (Last Updated 05/21/18 @ 02:23 by Tika Moreno MD) Knee joint replacement status (Acute) History of cholecystectomy - Tobacco History Second Hand Smoke Exposure: No Smoking Status: Never smoker - Alcohol History How Often Do You Have a Drink Containing Alcohol: Never - Substance Use History Substance History: No History of Abuse - Travel History Recent Travel in the [place] Within the Last 8 Weeks: No Recent Travel Out of the Country Within the Last 8 Weeks: No - Immunization History Tetanus Immunization: <5 Years Medications and Allergies Active Medications: Active Medications Acetaminophen (Tylenol) 650 mg PO Q4H PRN PRN Reason: Temp > 100.4 Hydrocodone Bitart/Acetaminophen ([place] 5/325) 1 tab PO Q4H PRN PRN Reason: PAIN SCALE 3 TO 5 Al Hydroxide/Mg Hydroxide (Milk Of Magnesia Liq) 30 ml PO Q12H PRN PRN Reason: Mild Constipation Amlodipine Besylate (Norvasc) 5 mg PO DAILY [facility] Aspirin (Aspirin Chew) 81 mg PO DAILY [facility] Atorvastatin Calcium (Lipitor) 20 mg PO HS [facility] Bisacodyl (Dulcolax Supp) 10 mg RECTAL DAILY PRN PRN Reason: SEVERE CONSITIPATION Dextrose (D50w Vial) 50 ml IV.PUSH UNSCH PRN PRN Reason: PER HYPOGLYCEMIA PROTOCOL Enalapril Maleate (Vasotec) 5 mg PO DAILY [facility] Gabapentin (Neurontin) 300 mg PO BID [facility] Glucagon (Glucagon Inj) 1 mg OTHER PRN PRN PRN Reason: for Hypoglycemia Protocol Insulin Aspart (Novolog Insulin [employer] Sugar Inj) 0 unit SQ ACHS SKIP; Protocol Lactulose (Lactulose Liq) 30 ml PO DAILY PRN PRN Reason: SEVERE CONSITIPATION Methocarbamol (Robaxin) 500 mg PO QID [facility] Morphine Sulfate (Morphine Inj) 2 mg IV.PUSH Q3H PRN PRN Reason: PAIN 6-10 Ondansetron HCl (Zofran Inj) 4 mg IV.PUSH Q6H PRN PRN Reason: NAUSEA OR VOMITING Phenytoin Sodium (Dilantin) 200 mg PO BID [facility] Senna/Docusate Sodium (Winifred-Colace) 1 tab PO BID [facility] Sennosides (Senokot) 17.2 mg PO Q12H PRN PRN Reason: Moderate Constipation Sodium Chloride (Ns Flush) 2 ml IV.FLUSH BID [facility] Sodium Chloride (Ns Flush) 2 ml IV.FLUSH PRN PRN PRN Reason: FLUSH AFTER USING IV ACCESS Ticagrelor (Brilinta) 90 mg PO BID [facility] Allergies Allergy/AdvReac Type Severity Reaction Status Date / Time *MDRO Multi-Drug Resistant AdvReac Intermediate Abdominal Uncoded 05/21/18 00:22 Organism Pain Home Medications Medication Instructions Recorded Confirmed Type aspirin 81 mg PO DAILY 02/20/18 05/21/18 History enalapril maleate 5 mg PO DAILY 02/20/18 05/21/18 History gabapentin 300 mg PO BID 02/20/18 05/21/18 History lisinopril 10 mg PO DAILY 02/20/18 05/21/18 History metoclopramide HCl 5 mg PO TID 02/20/18 05/21/18 History phenytoin sodium extended 200 mg PO BID 02/20/18 05/21/18 History [Phenytek] insulin detemir U-100 [Levemir 34 units SUB-Q DAILY 03/15/18 05/21/18 History U-100 Insulin] Exam Vital signs: Vital Signs 05/21/18 00:18 05/21/18 00:28 05/21/18 00:33 Temperature 98.6 F Pulse Rate 82 81 Respiratory Rate 16 Blood Pressure 130/59 L Pulse Oximetry 96 96 05/21/18 01:00 05/21/18 01:35 05/21/18 02:00 Temperature Pulse Rate 80 77 Respiratory Rate 24 17 21 Blood Pressure 137/61 136/63 Pulse Oximetry 99 99 Intake & Output 05/20/18 05/20/18 05/21/18 06:59 18:59 06:59 Weight 129.727 kg Narrative: PE: GENERAL: Middle-aged white male in no acute distress. SKIN: Focused skin assessment warm and dry. HEENT: PERRLA, EOMI. No scleral icterus or conjunctival pallor. No lid lag or facial droop. CARDIOVASCULAR: Regular rate and rhythm. No obvious murmurs to auscultation. No chest tenderness to palpation. RESPIRATORY: No obvious rhonchi or wheezing. Clear to auscultation. Breath sounds equal bilaterally. GASTROINTESTINAL: Abdomen soft, non-tender, nondistended. BS normal. MUSCULOSKELETAL: Extremities without clubbing, cyanosis. 2+ edema. No obvious deformities. Chronic left foot ulcerations. NEUROLOGICAL: Awake, alert and oriented x4. No focal neurologic deficits. Moving both upper and lower extremities spontaneously. PSYCHIATRIC: Appropriate mood and affect. Insight and judgment normal. Results - Labs CBC & Chem 7: 05/21/18 01:05 05/21/18 01:05 Labs: Short CBC 05/21/18 Range/Units 01:05 WBC 6.7 (4.0-11.0) th/mm3 Hgb 9.2 L (13.0-17.0) gm/dL Hct 26.7 L (39.0-51.0) % Plt Count 154 (150-450) th/mm3 [facility] 05/21/18 01:05 Sodium 134 L Potassium 5.4 H Chloride 101 Carbon Dioxide 25.5 BUN 44 H Creatinine 4.50 H Calcium 7.8 L Cardiac Enzymes 05/21/18 Range/Units 01:05 Troponin I Less than 0.02 L (0.02-0.05) ng/mL Liver Function 05/21/18 Range/Units 01:05 Total Bilirubin 0.4 (0.2-1.0) mg/dL AST 28 (15-37) U/L ALT 37 (12-78) U/L Alkaline Phosphatase 160 H (45-117) U/L Albumin 3.0 L (3.4-5.0) g/dL - Imaging Impressions Chest X-Ray 05/21/18 00:28 CONCLUSION: Small lung volumes with an elevated right hemidiaphragm. Right subclavian bipolar pacer Caprini VTE Risk Assessment Caprini VTE Risk Assessment: No/Low Risk (score <= 1) Caprini Risk Assessment Model: Point Value = 1 Point Value = 2 Point Value = 3 Point Value = 5 Age 41-60 Minor surgery BMI > 25 kg/m2 Swollen legs Varicose veins or History of unexplained or recurrent spontaneous Oral contraceptives or hormone replacement Sepsis (< 1 month) Serious lung disease, including pneumonia (< 1 month) Abnormal pulmonary function Acute myocardial infarction Congestive heart failure (< 1 month) History of inflammatory bowel disease Medical patient at bed rest Age 61-74 Arthroscopic surgery Major open surgery (> 45 min) Laparoscopic surgery (> 45 min) Malignancy Confined to bed (> 72 hours) Immobilizing plaster cast Central venous access Age >= 75 History of VTE Family history of VTE Factor V Leiden Prothrombin [id number] Lupus anticoagulant Anticardiolipin antibodies Elevated serum homocysteine Heparin-induced thrombocytopenia Other congenital or acquired thrombophilia Stroke (< 1 month) Elective arthroplasty Hip, pelvis, or leg fracture Acute spinal cord injury (< 1 month) Prophylaxis Regimen: Total Risk Factor Score Risk Level Prophylaxis Regimen 0-1 Low Early ambulation 2 Moderate Order ONE of the following: *Sequential Compression Device (SCD) *Heparin 5000 units SQ BID 3-4 Higher Order ONE of the following medications: *Heparin 5000 units SQ TID *Enoxaparin/Lovenox 40 mg SQ daily (WT < 150 kg, CrCl > 30 mL/min) *Enoxaparin/Lovenox 30 mg SQ daily (WT < 150 kg, CrCl > 10-29 mL/min) *Enoxaparin/Lovenox 30 mg SQ BID (WT < 150 kg, CrCl > 30 mL/min) AND/OR *Sequential Compression Device (SCD) 5 or more Highest Order ONE of the following medications: *Heparin 5000 units SQ TID (Preferred with Epidurals) *Enoxaparin/Lovenox 40 mg SQ daily (WT < 150 kg, CrCl > 30 mL/min) *Enoxaparin/Lovenox 30 mg SQ daily (WT < 150 kg, CrCl > 10-29 mL/min) *Enoxaparin/Lovenox 30 mg SQ BID (WT < 150 kg, CrCl > 30 mL/min) AND *Sequential Compression Device (SCD) Assessment and Plan - Assessment (1) Chest pain Code(s): R07.9 - Chest pain, unspecified Status: Acute (2) ESRD (end stage renal disease) on dialysis Code(s): N18.6 - End stage renal disease; Z99.2 - Dependence on renal dialysis Status: Acute (3) DM (diabetes mellitus) Code(s): E11.9 - Type 2 diabetes mellitus without complications Status: Acute - Plan A/P: 1. Chest Pain: h/o NSTEMI w/ emergent Cath 02/20 s/p Stent to Left OM, on ASA/ Brilinta, initial trop negative, EKG w/ no acute findings. Admit to Observation , Telemetry, check serial cardiac enzymes to eval for ischemia, CXR w/ no acute findings, images reviewed. Follows w/ Dr. Villarreal, will consult for further eval/intervention. Morphine prn, no improvement after NTG. Resume home ASA, Brilinta and Statin. 2. ESRD on HD: //, follows w/ Dr. Alvarado, will consult to resume HD as scheduled. 3. DM: Sliding scale w/ Accu-Checks 4. DVT Prophylaxis: SCD/Teds 5. Social work for d/c planning as needed 6. Case discussed w/ ER physician at length, labs/records/imaging reviewed by me (1) Chest pain Qualifiers: Chest pain type: other chest pain Qualified Code(s): R07.89 - Other chest pain; R07.8 - Other chest pain
[2018-05-21] MEDS: Senna/Docusate Sodium 8.6/50 MG Tablet PO SCH ×2 (08:42→21:28)
[2018-05-21] MEDS: Gabapentin 300 MG Capsule PO SCH ×2 (08:43→21:28)
[2018-05-21] MEDS: Phenytoin Sodium 100 MG Capsule PO SCH ×2 (08:43→21:28)
[2018-05-21] MEDS: Sodium Chloride 0.9% 2 ML Flush BID IV.FLUSH SCH ×2 (08:43→21:27)
[2018-05-21] MEDS: amLODIPine 5 MG Tablet PO SCH (08:43)
[2018-05-21] MEDS: Methocarbamol 500 MG Tablet PO SCH ×4 (08:43→21:28)
[2018-05-21] MEDS: Insulin NovoLOG Aspart Correctional Sugar Inj SQ SCH ×4 (08:56→21:27)
[2018-05-21] MEDS ORDERED: Lisinopril 10 MG Tablet PO SCH (09:00)
--- NOTE | 2018-05-21 09:20 | P.PN ---
Subjective Interval history: Follow-up chest pain. Called earlier by RN stating patient was having chest pain. Patient is not a good historian, appears to be delirious with a temperature of over 101. He is oriented to person. States he had chest pain earlier but not now. Denies neck pain, shortness of breath, cough, UTI symptoms and diarrhea. EKG sinus rhythm without ST elevation. Discussed with cardiology and nephrology Physical Exam Vital signs: Vital Signs 05/21/18 00:18 05/21/18 00:28 05/21/18 00:33 Temperature 98.6 F Pulse Rate 82 81 Respiratory Rate 16 Blood Pressure 130/59 L Pulse Oximetry 96 96 05/21/18 01:00 05/21/18 01:35 05/21/18 02:00 Temperature Pulse Rate 80 77 Respiratory Rate 24 17 21 Blood Pressure 137/61 136/63 Pulse Oximetry 99 99 05/21/18 04:00 05/21/18 07:36 05/21/18 07:54 Temperature 98.4 F 101.8 F H Pulse Rate 88 87 98 H Respiratory Rate 18 20 Blood Pressure 175/78 H 167/79 H Pulse Oximetry 99 98 05/21/18 08:22 Temperature Pulse Rate Respiratory Rate Blood Pressure Pulse Oximetry 98 Intake & Output 05/20/18 05/21/18 05/21/18 18:59 06:59 18:59 Intake Total 120 / 120 Balance 120 / 120 Weight 129.727 kg Intake: Oral 120 / 120 Other: # Voids 0 Narrative: GENERAL: Middle-aged white male in no acute distress. SKIN: Focused skin assessment warm and dry. Slight erythema over AV fistula CARDIOVASCULAR: Regular rate and rhythm. No obvious murmurs to auscultation. No chest tenderness to palpation. RESPIRATORY: No obvious rhonchi or wheezing. Clear to auscultation. Breath sounds equal bilaterally. GASTROINTESTINAL: Abdomen soft, slightly tender epigastric, nondistended. BS normal. MUSCULOSKELETAL: Extremities without clubbing, cyanosis. 2+ edema. No obvious deformities. Superficial wounds anterior leg, anterior left foot, left proximal plantar and left heel, right second and third toes. Amputated left second third and fourth toes and right fourth and fifth. Partially amputated right first toe NEUROLOGICAL: Lethargic oriented to person following simple commands. No focal neurologic deficits. Moving both upper and lower extremities spontaneously. PSYCHIATRIC: Appropriate mood and affect. Insight and judgment normal. Results - Labs CBC & Chem 7: 05/21/18 01:05 05/21/18 01:05 Laboratory Results - last 24 hr 05/21/18 05/21/18 05/21/18 01:05 01:05 01:05 WBC 6.7 RBC 2.74 L Hgb 9.2 L Hct 26.7 L MCV 97.4 MCH 33.7 MCHC 34.6 RDW 14.6 Plt Count 154 MPV 7.8 Neut % (Auto) 76.7 H Lymph % (Auto) 8.8 L [place] % (Auto) 11.9 H Eos % (Auto) 2.1 Baso % (Auto) 0.5 Neut # (Auto) 5.1 Lymph # (Auto) 0.6 L [place] # (Auto) 0.8 Eos # (Auto) 0.1 Baso # (Auto) 0.0 WBC Differential . Differential Comment Auto diff final Sodium 134 L Potassium 5.4 H Chloride 101 Carbon Dioxide 25.5 Anion Gap 8 BUN 44 H Creatinine 4.50 H Estimated GFR 13 L POC Glucose Random Glucose 124 H Calcium 7.8 L Total Bilirubin 0.4 AST 28 ALT 37 Alkaline Phosphatase 160 H Troponin I Less than 0.02 L B-Natriuretic Peptide 254 H Total Protein 7.5 Albumin 3.0 L Lipase 176 05/21/18 08:37 WBC RBC Hgb Hct MCV MCH MCHC RDW Plt Count MPV Neut % (Auto) Lymph % (Auto) [place] % (Auto) Eos % (Auto) Baso % (Auto) Neut # (Auto) Lymph # (Auto) [place] # (Auto) Eos # (Auto) Baso # (Auto) WBC Differential Differential Comment Sodium Potassium Chloride Carbon Dioxide Anion Gap BUN Creatinine Estimated GFR POC Glucose 166 H Random Glucose Calcium Total Bilirubin AST ALT Alkaline Phosphatase Troponin I B-Natriuretic Peptide Total Protein Albumin Lipase - Imaging Impressions Chest X-Ray 05/21/18 00:28 CONCLUSION: Small lung volumes with an elevated right hemidiaphragm. Right subclavian bipolar pacer Assessment and Plan - Assessment (1) Chest pain Code(s): R07.9 - Chest pain, unspecified Status: Acute (2) ESRD (end stage renal disease) on dialysis Code(s): N18.6 - End stage renal disease; Z99.2 - Dependence on renal dialysis Status: Acute (3) DM (diabetes mellitus) Code(s): E11.9 - Type 2 diabetes mellitus without complications Status: Acute - Plan 1. Chest Pain: h/o NSTEMI w/ emergent Cath 02/20 s/p Stent to Left OM, on ASA/ Brilinta, initial trop negative, EKG w/ no acute findings. Continue to trend cardiac enzymes, telemetry, antiplatelets and add beta-carrie and Nitropaste. He is also on statin. Further management per Dr. Villarreal. Follow-up CTA 2. Sepsis likely from cellulitis over AV fistula. Stat blood culture, UA and start IV vancomycin and Zosyn 3. ESRD on HD: //, follows w/ Dr. Alvarado, will consult to resume HD as scheduled. 4. DM: Sliding scale w/ Accu-Checks 5. DVT Prophylaxis: SCD/Teds Discharge Planning: Consult case management (1) Chest pain Qualifiers: Chest pain type: other chest pain Qualified Code(s): R07.89 - Other chest pain; R07.8 - Other chest pain
[2018-05-21] MEDS ORDERED: Vancomycin Consult Pharmacy OTHER ONE (09:33)
[2018-05-21] MEDS ORDERED: Sod Chloride 0.9% Inj 1,000 ML IV.CONT PRN (10:10)
[2018-05-21] MEDS ORDERED: Gelatin 12 MM/7 MM Topical Foam TOPICAL PRN (10:10)
[2018-05-21] MEDS ORDERED: Albumin Human 25% Inj 100 ML IV.SIG PRN (10:10)
[2018-05-21] MEDS ORDERED: Sod Chloride 0.9% Inj 1,000 ML OTHER PRN ×2 (10:10)
[2018-05-21] MEDS ORDERED: Heparin 10,000 UNITS/10 ML Vial (for IV use) OTHER PRN ×2 (10:10)
--- NOTE | 2018-05-21 10:11 | P.CONNP ---
<Christa Velasquez - Last Filed: 05/21/18 10:16> History of Present Illness Service: Nephrology Consult date: 05/21/18 Reason for Consult: End Stage Renal Disease on Hemodialysis Primary Care Provider: No Primary Care Physician Chief Complaint: Chest Pain History of Present Illness: Patient is a 62-year-old male with past medical history of seizure disorder, gastroesophageal reflux disease, anxiety, depression, pancreatitis, previous MRSA, previous stroke, diabetes, hypertension, hyperlipidemia, and end stage renal disease renal failure with AV fistula graft left upper extremity and hemodialysis Tuesdays and Saturdays. Presented to emergency department with chest pain. Nephrology is consulted for management of end stage renal disease. Last hemodialysis was done on . Regular scheduled days are Wednesday, , and Wednesday. Denies any shortness of breath, chest pain, nausea, or vomiting. Reports some abdominal discomfort. Noted to be febrile. PMFSH - History History Provided By: Patient - Medical History Medical History: Medical History (Last Updated 05/21/18 @ 02:25 by Tika Moreno MD) Neuropathy (Acute) AV fistula (Acute) Coronary artery disease Diabetes End stage renal disease History of amputation of great toe of both feet Seizure - Surgical History Surgical History: Surgical History (Last Updated 05/21/18 @ 02:23 by Tika Moreno MD) Knee joint replacement status (Acute) History of cholecystectomy - Tobacco History Second Hand Smoke Exposure: Yes Tobacco Use In Past 30 Days: No Smoking Status: Never smoker - Alcohol History How Often Do You Have a Drink Containing Alcohol: Never - Substance Use History Substance History: No History of Abuse - Travel History Recent Travel in the [place] Within the Last 8 Weeks: No Recent Travel Out of the Country Within the Last 8 Weeks: No - Immunization History Tetanus Immunization: <5 Years Medications and Allergies Allergies Allergy/AdvReac Type Severity Reaction Status Date / Time *MDRO Multi-Drug Resistant AdvReac Intermediate Abdominal Uncoded 05/21/18 00:22 Organism Pain Home Medications Medication Instructions Recorded Confirmed Type aspirin 81 mg PO DAILY 02/20/18 05/21/18 History enalapril maleate 5 mg PO DAILY 02/20/18 05/21/18 History gabapentin 300 mg PO BID 02/20/18 05/21/18 History lisinopril 10 mg PO DAILY 02/20/18 05/21/18 History metoclopramide HCl 5 mg PO TID 02/20/18 05/21/18 History phenytoin sodium extended 200 mg PO BID 02/20/18 05/21/18 History [Phenytek] insulin detemir U-100 [Levemir 34 units SUB-Q DAILY 03/15/18 05/21/18 History U-100 Insulin] Active Medications: Active Medications Acetaminophen (Tylenol) 650 mg PO Q4H PRN PRN Reason: Temp > 100.4 Last Admin: 05/21/18 08:42 Dose: 650 mg Hydrocodone Bitart/Acetaminophen ([place] 5/325) 1 tab PO Q4H PRN PRN Reason: PAIN SCALE 3 TO 5 Amlodipine Besylate (Norvasc) 5 mg PO DAILY [facility] Last Admin: 05/21/18 08:43 Dose: 5 mg Aspirin (Aspirin Chew) 81 mg PO DAILY [facility] Last Admin: 05/21/18 08:43 Dose: 81 mg Atorvastatin Calcium (Lipitor) 20 mg PO HS [facility] Bisacodyl (Dulcolax Supp) 10 mg RECTAL DAILY PRN PRN Reason: SEVERE CONSITIPATION Dextrose (D50w Vial) 50 ml IV.PUSH UNSCH PRN PRN Reason: PER HYPOGLYCEMIA PROTOCOL Gabapentin (Neurontin) 300 mg PO BID [facility] Last Admin: 05/21/18 08:43 Dose: 300 mg Glucagon (Glucagon Inj) 1 mg OTHER PRN PRN PRN Reason: for Hypoglycemia Protocol Piperacillin/Tazobactam/Dextrose (Zosyn 3.375 Gm Premix) 50 mls @ 100 mls/hr IV.SIG Q6H [facility] Insulin Aspart (Novolog Insulin Correctional Sugar Inj) 0 unit SQ ACHS [facility]; Protocol Last Admin: 05/21/18 08:56 Dose: Not Given Lactulose (Lactulose Liq) 30 ml PO DAILY PRN PRN Reason: SEVERE CONSITIPATION Methocarbamol (Robaxin) 500 mg PO QID [facility] Last Admin: 05/21/18 08:43 Dose: 500 mg Metoprolol Tartrate (Lopressor) 25 mg PO BID [facility] Morphine Sulfate (Morphine Inj) 2 mg IV.PUSH Q3H PRN PRN Reason: PAIN 6-10 Last Admin: 05/21/18 06:54 Dose: 2 mg Nitroglycerin (Nitro-Bid 2% Oint) 1 inch TOPICAL Q6HR [facility] Last Admin: 05/21/18 08:54 Dose: 1 inch Ondansetron HCl (Zofran Inj) 4 mg IV.PUSH Q6H PRN PRN Reason: NAUSEA OR VOMITING Pharmacy Profile Note (Vancomycin Consult Pharmacy) 1 each OTHER UNSCH ONE Stop: 05/21/18 09:34 Phenytoin Sodium (Dilantin) 200 mg PO BID [facility] Last Admin: 05/21/18 08:43 Dose: 200 mg Senna/Docusate Sodium (Winifred-Colace) 1 tab PO BID [facility] Last Admin: 05/21/18 08:42 Dose: 1 tab Sennosides (Senokot) 17.2 mg PO Q12H PRN PRN Reason: Moderate Constipation Sodium Chloride (Ns Flush) 2 ml IV.FLUSH BID [facility] Last Admin: 05/21/18 08:43 Dose: 2 ml Sodium Chloride (Ns Flush) 2 ml IV.FLUSH PRN PRN PRN Reason: FLUSH AFTER USING IV ACCESS Ticagrelor (Brilinta) 90 mg PO BID [facility] Last Admin: 05/21/18 08:43 Dose: 90 mg Exam Vital signs: Vital Signs 05/21/18 00:18 05/21/18 00:28 05/21/18 00:33 Temperature 98.6 F Pulse Rate 82 81 Respiratory Rate 16 Blood Pressure 130/59 L Pulse Oximetry 96 96 05/21/18 01:00 05/21/18 01:35 05/21/18 02:00 Temperature Pulse Rate 80 77 Respiratory Rate 24 17 21 Blood Pressure 137/61 136/63 Pulse Oximetry 99 99 05/21/18 04:00 05/21/18 07:36 05/21/18 07:54 Temperature 98.4 F 101.8 F H Pulse Rate 88 87 98 H Respiratory Rate 18 20 Blood Pressure 175/78 H 167/79 H Pulse Oximetry 99 98 05/21/18 08:22 Temperature Pulse Rate Respiratory Rate Blood Pressure Pulse Oximetry 98 Intake & Output 05/20/18 05/21/18 05/21/18 18:59 06:59 18:59 Intake Total 120 / 120 Balance 120 / 120 Weight 129.727 kg Intake: Oral 120 / 120 Other: # Voids 0 Narrative: GENERAL: Awake and alert. Flat affect. SKIN: Warm and dry. NECK: Supple, trachea midline. No JVD. CARDIOVASCULAR: Regular rate and rhythm without murmurs, gallops, or rubs. Left arm AVF with positive thrill and bruit. Some erythema noted. RESPIRATORY: Breath sounds equal bilaterally. No accessory muscle use. GASTROINTESTINAL: Abdomen soft, Positive bowel sounds. Reports some abdominal pain wit palpation. MUSCULOSKELETAL: No cyanosis, or edema. Bilateral lower extremity redness. Multiple toe amputations. Wound on bottom of left foot, chronic. BACK: Nontender without obvious deformity. No CVA tenderness. Results - Lab Results 05/21/18 01:05 05/21/18 01:05 Most recent lab results Calcium 7.8 mg/dL (8.5-10.1) L 05/21/18 01:05 Assessment and Plan - Assessment (1) ESRD (end stage renal disease) on dialysis Code(s): N18.6 - End stage renal disease; Z99.2 - Dependence on renal dialysis Status: Acute Plan: End stage renal disease. Last hemodialysis was done on , regular scheduled days are Wednesday, , and Wednesday. Left arm AVF with positive thrill and bruit. Some erythema noted. Blood cultures have been ordered. Avoid IVF administration and gadolinium. Hemodialysis planned for today, will remove fluid as tolerated. (2) Chest pain Code(s): R07.9 - Chest pain, unspecified Status: Acute Plan: Trending troponin Cardiology consulted. (3) DM (diabetes mellitus) Code(s): E11.9 - Type 2 diabetes mellitus without complications Status: Acute Plan: Recommend to maintain blood sugars between 140 mg/dl to 180 mg/dl while hospitalized. (4) Anemia Code(s): D64.9 - Anemia, unspecified Status: Acute Plan: Epogen ordered with dialysis. (5) Sepsis Code(s): A41.9 - Sepsis, unspecified organism Status: Acute Plan: Blood cultures and UA ordered Antibiotics, renal dose as appropriate Will change Vancomycin to with dialysis. <Moni Alvarado - Last Filed: 05/22/18 11:33> History of Present Illness Primary Care Provider: No Primary Care Physician [facility] - Medical History Medical History: Medical History (Last Updated 05/21/18 @ 02:25 by Tika Moreno MD) Neuropathy (Acute) AV fistula (Acute) Coronary artery disease Diabetes End stage renal disease History of amputation of great toe of both feet Seizure - Surgical History Surgical History: Surgical History (Last Updated 05/21/18 @ 02:23 by Tika Moreno MD) Knee joint replacement status (Acute) History of cholecystectomy Medications and Allergies Active Medications: Active Medications Acetaminophen (Tylenol) 650 mg PO Q4H PRN PRN Reason: Temp > 100.4 Last Admin: 05/21/18 08:42 Dose: 650 mg Acetaminophen (Tylenol) 650 mg PO UNSCH PRN PRN Reason: SEE LABEL COMMENTS Hydrocodone Bitart/Acetaminophen ([place] 5/325) 1 tab PO Q4H PRN PRN Reason: PAIN SCALE 3 TO 5 Last Admin: 05/22/18 05:05 Dose: 1 tab Amlodipine Besylate (Norvasc) 5 mg PO DAILY [facility] Last Admin: 05/22/18 08:17 Dose: 5 mg Aspirin (Aspirin Chew) 81 mg PO DAILY [facility] Last Admin: 05/22/18 08:17 Dose: 81 mg Atorvastatin Calcium (Lipitor) 20 mg PO HS [facility] Last Admin: 05/21/18 21:28 Dose: 20 mg Bisacodyl (Dulcolax Supp) 10 mg RECTAL DAILY PRN PRN Reason: SEVERE CONSITIPATION Chlorhexidine Gluconate (Chlorhexidine 2% Cloth) 3 pack TOPICAL DAILY@0400 [facility] Stop: 05/27/18 03:59 Last Admin: 05/22/18 04:00 Dose: 3 pack Chlorhexidine Gluconate (Chlorhexidine 2% Cloth) 3 pack TOPICAL DAILY@0400 PRN PRN Reason: Extra cloth needed Stop: 05/27/18 03:59 Clonidine HCl (Catapres) 0.1 mg PO UNSCH PRN PRN Reason: SEE LABEL COMMENTS Dextrose (D50w Vial) 50 ml IV.PUSH UNSCH PRN PRN Reason: PER HYPOGLYCEMIA PROTOCOL Diphenhydramine HCl (Benadryl) 25 mg PO UNSCH PRN PRN Reason: SEE LABEL COMMENTS Epoetin Stefano (Epogen Inj) 6,000 unit IV.PUSH UNSCH PRN PRN Reason: SEE LABEL COMMENTS Last Admin: 05/21/18 20:35 Dose: 6,000 unit Gabapentin (Neurontin) 300 mg PO BID [facility] Last Admin: 05/22/18 08:17 Dose: 300 mg Gelatin (Gelfoam 12 Mm/7 Mm Topical) 1 foam TOPICAL PRN PRN PRN Reason: help stop bleeding from site Gentamicin Sulfate (Gentamicin Inj) 20 mg OTHER WITH DIALYSIS PRN PRN Reason: Dwell Gentamycin Lock Glucagon (Glucagon Inj) 1 mg OTHER PRN PRN PRN Reason: for Hypoglycemia Protocol Heparin Sodium (Porcine) (Heparin Inj) 8,000 units OTHER WITH DIALYSIS PRN PRN Reason: for machine prime Heparin Sodium (Porcine) (Heparin Inj) 1,000 units OTHER WITH DIALYSIS PRN PRN Reason: Dwell Heparin to Fill Catheter Hydralazine HCl (Apresoline Inj) 20 mg IV.PUSH Q4H PRN PRN Reason: SBP> OR = 180, DBP> OR = 100 Last Admin: 05/22/18 00:41 Dose: 20 mg Piperacillin/Tazobactam/Dextrose (Zosyn 2.25 Gm Premix) 50 mls @ 100 mls/hr IV.SIG Q12H [facility] Last Infusion: 05/22/18 00:00 Dose: Infused Albumin Human (Flexbumin 25% Inj) 100 mls @ 60 mls/hr IV.SIG WITH DIALYSIS PRN PRN Reason: hypotension / volume replace Sodium Chloride (Ns Inj) 1,000 mls @ 0 mls/hr OTHER .Q0M PRN PRN Reason: for prime and rinse back Sodium Chloride (Ns Inj) 1,000 mls @ 200 mls/hr OTHER .Q5H PRN PRN Reason: for dialyzer flush PRN Sodium Chloride (Ns Inj) 1,000 mls @ 0 mls/hr IV.CONT .Q0M PRN PRN Reason: hypotension / volume replace Acetaminophen (Ofirmev Inj) 1,000 mg in 100 mls @ 300 mls/hr IV.SIG Q6H PRN PRN Reason: FEVER Last Infusion: 05/21/18 17:00 Dose: Infused Insulin Aspart (Novolog Insulin Correctional Sugar Inj) 0 unit SQ ACHS [facility]; Protocol Last Admin: 05/22/18 08:18 Dose: Not Given Labetalol HCl (Trandate Inj) 10 mg IV.PUSH Q4H PRN PRN Reason: SBP>180, DBP>100, HR>65 Lactulose (Lactulose Liq) 30 ml PO DAILY PRN PRN Reason: SEVERE CONSITIPATION Mannitol (Mannitol Inj) 12.5 gm IV.PUSH UNSCH PRN PRN Reason: hypotension / volume replace Methocarbamol (Robaxin) 500 mg PO QID [facility] Last Admin: 05/22/18 08:19 Dose: Not Given Metoprolol Tartrate (Lopressor) 25 mg PO BID [facility] Last Admin: 05/22/18 08:18 Dose: 25 mg Morphine Sulfate (Morphine Inj) 2 mg IV.PUSH Q3H PRN PRN Reason: PAIN 6-10 Last Admin: 05/22/18 10:19 Dose: 2 mg Nitroglycerin (Nitro-Bid 2% Oint) 1 inch TOPICAL Q6HR [facility] Last Admin: 05/22/18 06:04 Dose: 1 inch Nitroglycerin (Nitrostat Sl) 0.4 mg SL Q5M PRN PRN Reason: CHEST PAIN Ondansetron HCl (Zofran Inj) 4 mg IV.PUSH Q6H PRN PRN Reason: NAUSEA OR VOMITING Ondansetron HCl (Zofran Inj) 4 mg IV.PUSH UNSCH PRN PRN Reason: NAUSEA OR VOMITING Pharmacy Profile Note (Vancomycin Consult Pharmacy) 1 each OTHER UNSCH PRN PRN Reason: PHARMACY TO DOSE Phenytoin Sodium (Dilantin) 200 mg PO BID [facility] Last Admin: 05/22/18 08:18 Dose: 200 mg Senna/Docusate Sodium (Winifred-Colace) 1 tab PO BID [facility] Last Admin: 05/22/18 08:18 Dose: 1 tab Sennosides (Senokot) 17.2 mg PO Q12H PRN PRN Reason: Moderate Constipation Sodium Chloride (Ns Flush) 2 ml IV.FLUSH BID [facility] Last Admin: 05/22/18 08:18 Dose: 2 ml Sodium Chloride (Ns Flush) 2 ml IV.FLUSH PRN PRN PRN Reason: FLUSH AFTER USING IV ACCESS Sodium Chloride (Ns Flush) 5 ml IV.FLUSH PRN PRN PRN Reason: flush each lumen during HD Ticagrelor (Brilinta) 90 mg PO BID [facility] Last Admin: 05/22/18 08:17 Dose: 90 mg Exam Vital signs: Vital Signs 05/21/18 12:00 05/21/18 15:05 05/21/18 15:17 Temperature 100.8 F H 102.5 F H Pulse Rate 90 140 H Respiratory Rate 19 30 H Blood Pressure 162/80 H 200/80 H Pulse Oximetry 98 98 11/17/18 16:00 05/21/18 17:22 05/21/18 17:30 Temperature 104.4 F H Pulse Rate 104 H 78 75 Respiratory Rate 37 H 26 H 26 H Blood Pressure 211/82 H 152/59 H Pulse Oximetry 98 100 100 05/21/18 17:45 05/21/18 18:00 05/21/18 18:15 Temperature Pulse Rate 68 64 62 Respiratory Rate 25 H 22 23 Blood Pressure 132/56 L 102/51 L 116/55 L Pulse Oximetry 100 100 100 05/21/18 18:30 05/21/18 18:45 05/21/18 19:00 Temperature Pulse Rate 60 59 L 67 Respiratory Rate 21 28 H 18 Blood Pressure 112/53 L 108/52 L 111/54 L Pulse Oximetry 100 100 100 05/21/18 19:15 05/21/18 19:30 05/21/18 19:45 Temperature Pulse Rate 70 78 92 H Respiratory Rate 16 19 24 Blood Pressure 111/56 L 152/100 H 131/61 Pulse Oximetry 100 85 L 100 05/21/18 20:00 05/21/18 20:05 05/21/18 20:15 Temperature Pulse Rate 89 90 Respiratory Rate 17 18 Blood Pressure 129/60 145/64 H Pulse Oximetry 100 100 100 05/21/18 20:30 05/21/18 20:45 05/21/18 21:00 Temperature Pulse Rate 88 91 H 89 Respiratory Rate 17 18 18 Blood Pressure 123/50 L 140/65 154/65 H Pulse Oximetry 100 100 100 05/21/18 21:15 05/21/18 21:30 05/21/18 21:45 Temperature Pulse Rate 91 H 86 89 Respiratory Rate 19 15 17 Blood Pressure 169/69 H 146/61 H 144/65 H Pulse Oximetry 100 100 100 05/21/18 22:00 05/21/18 22:30 05/21/18 22:45 Temperature Pulse Rate 86 86 89 Respiratory Rate 16 20 20 Blood Pressure 172/68 H 143/63 H 164/67 H Pulse Oximetry 100 100 100 05/21/18 22:52 05/21/18 23:00 05/21/18 23:15 Temperature 100.5 F H Pulse Rate 92 H 91 H 89 Respiratory Rate 24 19 Blood Pressure 148/65 H 162/67 H Pulse Oximetry 100 100 05/21/18 23:30 05/21/18 23:45 05/22/18 00:00 Temperature 100.9 F H Pulse Rate 88 88 82 Respiratory Rate 21 22 22 Blood Pressure 161/67 H 160/69 H 161/68 H Pulse Oximetry 100 100 100 05/22/18 00:15 05/22/18 00:31 05/22/18 00:45 Temperature 100.1 F H Pulse Rate 83 80 76 Respiratory Rate 22 18 17 Blood Pressure 161/65 H 203/77 H 212/81 H Pulse Oximetry 100 100 100 05/22/18 00:55 05/22/18 01:00 05/22/18 01:15 Temperature Pulse Rate 78 80 90 Respiratory Rate 17 23 25 H Blood Pressure 167/71 H 149/64 H 147/66 H Pulse Oximetry 100 100 99 05/22/18 01:31 05/22/18 01:55 05/22/18 02:00 Temperature Pulse Rate 90 80 80 Respiratory Rate 22 17 17 Blood Pressure 169/70 H 170/70 H 172/66 H Pulse Oximetry 99 100 100 05/22/18 02:15 05/22/18 02:30 05/22/18 02:45 Temperature Pulse Rate 80 78 83 Respiratory Rate 18 14 23 Blood Pressure 171/73 H 156/68 H 170/70 H Pulse Oximetry 100 100 99 05/22/18 03:00 05/22/18 03:15 05/22/18 03:30 Temperature Pulse Rate 79 79 78 Respiratory Rate 16 15 15 Blood Pressure 177/72 H 179/77 H 174/74 H Pulse Oximetry 100 100 100 05/22/18 03:45 05/22/18 04:00 05/22/18 04:11 Temperature 97.6 F Pulse Rate 77 79 79 Respiratory Rate 14 19 23 Blood Pressure 182/72 H 174/70 H 150/67 H Pulse Oximetry 100 100 05/22/18 04:35 05/22/18 04:45 05/22/18 05:00 Temperature Pulse Rate 78 79 79 Respiratory Rate 18 17 20 Blood Pressure 184/74 H 179/76 H 173/67 H Pulse Oximetry 100 100 100 05/22/18 05:15 05/22/18 05:30 05/22/18 05:45 Temperature Pulse Rate 75 75 74 Respiratory Rate 11 L 13 13 Blood Pressure 178/72 H 177/66 H 162/69 H Pulse Oximetry 100 100 100 05/22/18 06:00 05/22/18 06:15 05/22/18 06:30 Temperature Pulse Rate 74 72 74 Respiratory Rate 14 14 13 Blood Pressure 136/63 132/60 140/63 Pulse Oximetry 100 100 100 05/22/18 06:45 05/22/18 06:55 05/22/18 07:00 Temperature Pulse Rate 75 74 75 Respiratory Rate 20 14 Blood Pressure 146/61 H 145/61 H Pulse Oximetry 100 100 05/22/18 07:15 05/22/18 07:30 05/22/18 07:45 Temperature Pulse Rate 76 75 76 Respiratory Rate 15 16 24 Blood Pressure 156/65 H 153/67 H 148/64 H Pulse Oximetry 99 100 99 05/22/18 08:00 05/22/18 08:15 05/22/18 08:30 Temperature 97.5 F L Pulse Rate 76 77 75 Respiratory Rate 21 14 15 Blood Pressure 145/60 H 153/63 H 143/63 H Pulse Oximetry 99 99 99 05/22/18 08:45 05/22/18 09:00 05/22/18 09:15 Temperature Pulse Rate 75 76 73 Respiratory Rate 13 8 L 13 Blood Pressure 144/60 H 142/61 H 135/63 Pulse Oximetry 100 100 99 05/22/18 09:30 05/22/18 09:45 05/22/18 09:56 Temperature Pulse Rate 67 65 64 Respiratory Rate 10 L 20 15 Blood Pressure 134/60 129/60 125/57 L Pulse Oximetry 100 99 99 05/22/18 10:00 Temperature Pulse Rate 64 Respiratory Rate 13 Blood Pressure 123/56 L Pulse Oximetry 100 Intake & Output 05/21/18 05/22/18 05/22/18 18:59 06:59 18:59 Intake Total 905 / 905 50 / 50 Output Total 3500 / 3500 Balance 905 / 905 -3450 / -3450 Weight 132.5 kg Intake: IV 785 / 785 50 / 50 Ofirmev Inj 1,000 mg In 100 ml 100 / 100 @ 300 mls/hr IV.SIG Q6H PRN Rx# :[id number] Calcium Gluconate Inj 1 GM In 110 / 110 D5W Inj 100 ML @ 110 mls/hr IV. SIG ONCE ONE Rx#:[id number] Zosyn 2.25 GM Premix 50 ML @ 50 / 50 50 / 50 100 mls/hr IV.SIG Q12H SKIP Rx#: [id number] Vancomycin Inj 2,500 MG In NS 525 / 525 Inj 500 ML @ 250 mls/hr IV.SIG WITH DIALYSIS ONE Rx#:[id number] Oral 120 / 120 0 / 0 Output: Hemodialysis Amount 3500 / 3500 Other: # Voids 0 Date of Last Bowel Movement 05/20/18 05/20/18 05/20/18 # Incontinent Bowel Movements 0 Results - Lab Results 05/22/18 05:09 05/22/18 05:09 Most recent lab results ABG pH 7.44 (7.380-7.420) H 05/21/18 15:40 ABG pCO2 28 mmHg (38-42) L 05/21/18 15:40 ABG pO2 68 mmHG (61-120) 05/21/18 15:40 ABG HCO3 19 mmol/L (22-26) L 05/21/18 15:40 Calcium 7.6 mg/dL (8.5-10.1) L 05/22/18 05:09 Phosphorus 5.0 mg/dL (2.5-4.9) H D 05/22/18 05:09 Magnesium 2.0 mg/dL (1.5-2.5) 05/22/18 05:09 Assessment and Plan - Assessment (1) ESRD (end stage renal disease) on dialysis Code(s): N18.6 - End stage renal disease; Z99.2 - Dependence on renal dialysis Status: Acute Plan: Patient seen and examined, agree with above. Patient with end stage renal disease on HD TTS. Now admitted with SOB and confusion. Going for CTA. Blood cultures done and started antibiotics. Possible sepsis. HD will be done after the CTA. (2) Chest pain Code(s): R07.9 - Chest pain, unspecified Status: Acute (3) DM (diabetes mellitus) Code(s): E11.9 - Type 2 diabetes mellitus without complications Status: Chronic (4) Anemia Code(s): D64.9 - Anemia, unspecified Status: Acute (5) Sepsis Code(s): A41.9 - Sepsis, unspecified organism Status: Acute
--- NOTE | 2018-05-21 10:39 | MB ---
cc: Jaden Villarreal MD DATE: 05/21/2018 REASON FOR CONSULTATION: Chest pain. HISTORY OF PRESENT ILLNESS: The patient is a 63-year-old gentleman who has a history of coronary artery disease with a relatively recent stent to the left obtuse marginal [place] of this year. He also has a history of end-stage renal disease, who apparently complained of sharp, stabbing chest pain 04/13. The patient is currently quite altered and is unable to provide any significant history. He will admit to pain, but seems to be pain all over. Everywhere I touch him, he does admit to pain. He is visibly having rigors and his last temperature was over 101. Again, he is basically unable to provide any history at this time, so history is obtained from the chart. PAST MEDICAL HISTORY: Hypertension, hyperlipidemia, coronary artery disease, presumptive seizure disorder (on Dilantin). CURRENT MEDICATIONS: 1. Norvasc 5 mg daily. 2. Lipitor 20 mg at bedtime. 3. Vasotec 5 mg daily. 4. Lactulose. 5. Dilantin. ALLERGIES: NO KNOWN DRUG ALLERGIES. PHYSICAL EXAMINATION: VITAL SIGNS: Temperature 101.8, pulse 98, respiratory rate 20, BP 167/79, saturating 98 on 2 liters. GENERAL: Obtunded gentleman who basically can give no history. NECK: No JVD. LUNGS: Clear to auscultation bilaterally. CARDIOVASCULAR: Regular rate and rhythm. No significant murmurs appreciated. ABDOMEN: His abdomen has some tenderness to deep palpation both in the left and right lower quadrants. EXTREMITIES: No edema. LABORATORY DATA: White count 6.7, hematocrit 26.7, platelets 154, sodium 134, potassium 5.4, chloride of 101, bicarbonate 25.5, BUN 44, creatinine 4.5. Troponin is negative. BNP is 254. EKG showed sinus rhythm without any acute ST or T-wave changes. IMPRESSION: Questionable chest pain. The patient's history is extremely difficult. There are reports in the chart he complained of chest pain. I do not get that. From currently at best I can get some vague total body pain. He has visible rigors and his temperature is over 101. PLAN: I have asked the medical team to workup his fever and he will require blood cultures and swab to rule out flu. He may require further imaging. I initially put in for a CT scan to exclude pulmonary embolus, though this seems less likely now that he has a fever and is rigoring. I will defer to the primary medical team whether to continue this test or order alternate imaging. If troponins continue to be negative with this very vague presentation of a normal EKG, I would not immediately jumped to a cardiac etiology of his current presentation. Thank you again for the opportunity to participate in this patient's care. MD LILI Cottrell/sandi , 09:14 AM , 09:21 AM
[2018-05-21] MEDS ORDERED: Vancomycin Consult Pharmacy OTHER PRN (10:41)
[2018-05-21] MEDS ORDERED: Vancomycin Inj 1,000 MG in Sodium Chlor 0.9% Inj 250 ML IV.SIG SCH (11:00)
[2018-05-21 11:13] LABS: Amorphous Sediment,Urine Rare /hpf; Bacteria,Urine Rare /hpf; Bilirubin,Urine Negative (Negative); Clarity,Urine Hazy (Clear); Color,Urine Yellow (Yellw/Straw); Glucose,Urine (UA) 50 mg/dL (Negative); Leukocyte Esterase,Urine Negative (Negative); Mucus,Urine Few /lpf (Occasional); Nitrite,Urine Negative (Negative); Specific Gravity,Urine 1.016 (1.002-1.035)
[2018-05-21] MEDS: Metoprolol Tartrate 25 MG Tablet PO SCH ×2 (12:17→21:28)
--- NOTE | 2018-05-21 13:50 | CT ---
EXAM DATE: 05/21/2018 1:42 PM EST AGE/SEX: 63 years / Male INDICATIONS: Chest pain. CLINICAL DATA: This is the patient's initial encounter. Patient reports that signs and symptoms have been present for 1 day and indicates a pain score of 7/10. MEDICAL/SURGICAL HISTORY: Cardiovascular disease. Diabetes. Renal disease, end stage. Cholecystec paige. RADIATION DOSE: 10.99 CTDI (mGy) COMPARISON: [facility] [place], CT PULMONARY ANGIOGRAM, 08/22/2017. . TECHNIQUE: Volumetric scanning was performed using a multi-row detector CT scanner during bolus infu helen of 75 ml Omnipaque 350 (iohexol) nonionic water-soluble contrast as a single exam dose. The alexander a was post processed with a variety of visualization algorithms including full volume maximum intensi ty projection and sliding thin slab reformation. Using automated exposure control and adjustment of t he mA and/or kV according to patient size, radiation dose was kept as low as reasonably achievable to obtain optimal diagnostic quality images. DICOM format image data is available electronically for r eview and comparison. FINDINGS: Pulmonary Arteries: No filling defects are seen in the pulmonary arteries out to the subsegmental ve ssels. The left and right pulmonary arteries are normal in diameter. Lung: Minimal scattered ground-glass densities are noted consistent with minimal pulmonary vascular congestion versus atelectatic changes. Effusion: Tiny bilateral pleural effusions are noted. Mediastinum: No evidence of mediastinal or hilar adenopathy. Coronary artery calcifications are note d. Other: The axilla is unremarkable. Splenomegaly is noted. Pneumobilia is noted. 13 mm right thyroid lobe nodule is noted. Degenerative changes are noted throughout the thoracic spine. CONCLUSION: 1. No evidence of pulmonary embolism. 2. Minimal scattered ground-glass densities are noted consistent with minimal pulmonary vascular con gestion versus atelectatic changes. 3. Coronary artery calcifications. 4. Tiny bilateral pleural effusions. 5. Splenomegaly. 6. Pneumobilia. 7. 13 mm right thyroid lobe nodule. 8. Degenerative changes throughout the thoracic spine. Electronically signed by: Wesley Harris MD 05/21/2018 1:49 PM EST
[2018-05-21] MEDS ORDERED: Vancomycin Inj 2,500 MG in Sodium Chlor 0.9% Inj 500 ML IV.SIG ONE (14:00)
[2018-05-21] MEDS: Piperacil/Tazo 2.25 GM Premix 50 ML IV.SIG SCH ×2 (14:03→23:50)
--- NOTE | 2018-05-21 14:16 | ECG ---
Date Performed: 05/21/2018 Time Performed: 00:18:06 PTAGE: 63 years EKG: Minor Nonspecific ST wave changes Borderline first degree AV block INTERPRETATION BASED ON A DEFAULT AGE OF 40 YEARS PREVIOUS TRACING : 05/21/2018 00.16 Compared to previous tracing, previous tracing showed accelerated junctional rhythm while this tracing shows sinus with borderline first degree AV block. DOCTOR: Crow Villar Interpretating Date/Time 05/21/2018 14:15:14
--- NOTE | 2018-05-21 14:20 | ECG ---
Date Performed: 05/21/2018 Time Performed: 09:21:37 PTAGE: 63 years EKG: Minore Nonspecific ST -wave change Vertical QRS axis INTERPRETATION BASED ON A DEFAULT AGE OF 40 YEARS PREVIOUS TRACING : 05/21/2018 00.18 Compared to previous tracing, MD interval is shorter. Otherwise no signiafcant serial change DOCTOR: Crow Villar Interpretating Date/Time 05/21/2018 14:19:13
[2018-05-21] MEDS ORDERED: Labetalol HCl Inj 100 MG/20 ML Vial IV.PUSH STA (15:10)
[2018-05-21] MEDS ORDERED: Metoprolol Inj 5 MG/5 ML Vial ONE (15:29)
[2018-05-21] MEDS ORDERED: Calcium Gluconate Inj 1 GM in Dextrose 5% in Water Inj 100 ML IV.SIG ONE ×2 (15:47)
[2018-05-21 15:50] LABS: ABG Base Excess -4.7 mmol/L (-2-2); ABG PCO2 28 mmHg (38-42); ABG PO2 68 mmHG (61-120)
[2018-05-21] MEDS ORDERED: Labetalol HCl Inj 100 MG/20 ML Vial IV.PUSH PRN (15:53)
[2018-05-21 16:00] LABS: Baso % (Auto) 0.4 % (0.0-2.0); Eos % (Auto) 0.1 % (0.0-4.0); Hematocrit 29.4 % (39.0-51.0); Lymph # (Auto) 0.1 th/mm3 (1.0-4.8); Lymph % (Auto) 1.7 % (9.0-44.0); Mean Corpuscular HGB Conc 33.9 % (32.0-36.0); Mean Corpuscular Hemoglobin 33.4 pg (27.0-34.0); Mean Corpuscular Volume 98.5 fL (80.0-100.0); Mean Platelet Volume 7.4 fL (7.0-11.0); Mono # (Auto) 0.6 th/mm3 (0.0-0.9); Mono % (Auto) 6.7 % (0.0-8.0); Neut # (Auto) 7.6 th/mm3 (1.8-7.7); Neut % (Auto) 91.1 % (16.0-70.0); Platelet Count 140 th/mm3 (150-450); Red Blood Count 2.98 mil/mm3 (4.50-5.90); Red Cell Distribution Width 14.7 % (11.6-17.2); White Blood Count 8.3 th/mm3 (4.0-11.0)
--- NOTE | 2018-05-21 16:00 | P.CONCC ---
History of Present Illness Service: [facility] Consult date: 05/21/18 Requesting Physician: James Gonzalez Reason for Consult: Sepsis Primary Care Provider: No Primary Care Physician Chief Complaint: Chest Pain History of Present Illness: 63yM transferred to [facility] from [facility] service for sepsis. The patient presented to the ED via EMS yesterday for chest pain which he described as intermittent "discomfort", radiating to his left arm, similar to anginal-type pain he had in the past. The patient was admitted to [facility] service overnight for further evaluation of his chest pain, has had negative trop x 3, but again reported chest pain this morning around 8 AM. He had a CTA chest which was negative for PE. Throughout the course of the day, he has been noted to be confused, febrile to 103F, and developed redness and warmth to his left arm overlying the AVF. He is scheduled for HD today. On arrival to [facility], the patient was sleepy but arousable to loud voice/ tactile stimuli, is unable to provide any meaningful contribution to HPI during my exam. The patient was last admitted in February for chest pain and underwent PCI with stent to proximal obtuse marginal (maintained on chronic Brillinta/ aspirin) as well as dual chamber right-sided PPM for symptomatic bradycardia. Research Rn Spec is Dr. Rizo. He additionally has a PMH of ESRD on HD , last dialyzed 2 days ago, receives HD via LUE AV fistula. Review of Systems unobtainable due to mental status PMFSH - History History Provided By: Patient - Medical History Medical History: Medical History (Last Reviewed 05/21/18 @ 16:12 by Mariah Villanueva DO) Neuropathy (Acute) AV fistula (Chronic) Coronary artery disease Diabetes End stage renal disease History of amputation of great toe of both feet Seizure - Surgical History Surgical History: Surgical History (Last Reviewed 05/21/18 @ 16:12 by Mariah Villanueva DO) Knee joint replacement status (Acute) History of cholecystectomy - Tobacco History Second Hand Smoke Exposure: Yes Tobacco Use In Past 30 Days: No Smoking Status: Never smoker - Alcohol History How Often Do You Have a Drink Containing Alcohol: Never - Substance Use History Substance History: No History of Abuse - Travel History Recent Travel in the [place] Within the Last 8 Weeks: No Recent Travel Out of the Country Within the Last 8 Weeks: No - Immunization History Tetanus Immunization: <5 Years Medications and Allergies Active Medications: Active Medications Acetaminophen (Tylenol) 650 mg PO Q4H PRN PRN Reason: Temp > 100.4 Last Admin: 05/21/18 08:42 Dose: 650 mg Acetaminophen (Tylenol) 650 mg PO UNSCH PRN PRN Reason: SEE LABEL COMMENTS Hydrocodone Bitart/Acetaminophen (Coram 5/325) 1 tab PO Q4H PRN PRN Reason: PAIN SCALE 3 TO 5 Amlodipine Besylate (Norvasc) 5 mg PO DAILY [facility] Last Admin: 05/21/18 08:43 Dose: 5 mg Aspirin (Aspirin Chew) 81 mg PO DAILY [facility] Last Admin: 05/21/18 08:43 Dose: 81 mg Atorvastatin Calcium (Lipitor) 20 mg PO [facility] Bisacodyl (Dulcolax Supp) 10 mg RECTAL DAILY PRN PRN Reason: SEVERE CONSITIPATION Chlorhexidine Gluconate (Chlorhexidine 2% Cloth) 3 pack TOPICAL DAILY@0400 SKIP Stop: 05/27/18 03:59 Chlorhexidine Gluconate (Chlorhexidine 2% Cloth) 3 pack TOPICAL DAILY@0400 PRN PRN Reason: Extra cloth needed Stop: 05/27/18 03:59 Clonidine HCl (Catapres) 0.1 mg PO UNSCH PRN PRN Reason: SEE LABEL COMMENTS Dextrose (D50w Vial) 50 ml IV.PUSH UNSCH PRN PRN Reason: PER HYPOGLYCEMIA PROTOCOL Diphenhydramine HCl (Benadryl) 25 mg PO UNSCH PRN PRN Reason: SEE LABEL COMMENTS Epoetin Stefano (Epogen Inj) 6,000 unit IV.PUSH UNSCH PRN PRN Reason: SEE LABEL COMMENTS Gabapentin (Neurontin) 300 mg PO BID [facility] Last Admin: 05/21/18 08:43 Dose: 300 mg Gelatin (Gelfoam 12 Mm/7 Mm Topical) 1 foam TOPICAL PRN PRN PRN Reason: help stop bleeding from site Gentamicin Sulfate (Gentamicin Inj) 20 mg OTHER WITH DIALYSIS PRN PRN Reason: Dwell Gentamycin Lock Glucagon (Glucagon Inj) 1 mg OTHER PRN PRN PRN Reason: for Hypoglycemia Protocol Heparin Sodium (Porcine) (Heparin Inj) 8,000 units OTHER WITH DIALYSIS PRN PRN Reason: for machine prime Heparin Sodium (Porcine) (Heparin Inj) 1,000 units OTHER WITH DIALYSIS PRN PRN Reason: Dwell Heparin to Fill Catheter Hydralazine HCl (Apresoline Inj) 20 mg IV.PUSH Q4H PRN PRN Reason: SBP> OR = 180, DBP> OR = 100 Piperacillin/Tazobactam/Dextrose (Zosyn 2.25 Gm Premix) 50 mls @ 100 mls/hr IV.SIG Q12H [facility] Last Admin: 05/21/18 14:03 Dose: 100 mls/hr Albumin Human (Flexbumin 25% Inj) 100 mls @ 60 mls/hr IV.SIG WITH DIALYSIS PRN PRN Reason: hypotension / volume replace Sodium Chloride (Ns Inj) 1,000 mls @ 0 mls/hr OTHER .Q0M PRN PRN Reason: for prime and rinse back Sodium Chloride (Ns Inj) 1,000 mls @ 200 mls/hr OTHER .Q5H PRN PRN Reason: for dialyzer flush PRN Sodium Chloride (Ns Inj) 1,000 mls @ 0 mls/hr IV.CONT .Q0M PRN PRN Reason: hypotension / volume replace Vancomycin HCl 2,500 mg/ (Sodium Chloride) 525 mls @ 250 mls/hr IV.SIG WITH DIALYSIS ONE Stop: 05/21/18 16:05 Acetaminophen (Ofirmev Inj) 1,000 mg in 100 mls @ 300 mls/hr IV.SIG Q6H PRN PRN Reason: FEVER Calcium Gluconate 1 gm/ (Dextrose) 110 mls @ 110 mls/hr IV.SIG ONCE ONE Stop: 05/21/18 16:46 Insulin Aspart (Novolog Insulin Correctional Sugar Inj) 0 unit SQ ACHS [facility]; Protocol Last Admin: 05/21/18 12:09 Dose: Not Given Labetalol HCl (Trandate Inj) 10 mg IV.PUSH Q4H PRN PRN Reason: SBP>180, DBP>100, HR>65 Lactulose (Lactulose Liq) 30 ml PO DAILY PRN PRN Reason: SEVERE CONSITIPATION Mannitol (Mannitol Inj) 12.5 gm IV.PUSH UNSCH PRN PRN Reason: hypotension / volume replace Methocarbamol (Robaxin) 500 mg PO QID [facility] Last Admin: 05/21/18 14:26 Dose: Not Given Metoprolol Tartrate (Lopressor) 25 mg PO BID [facility] Last Admin: 05/21/18 12:17 Dose: 25 mg Morphine Sulfate (Morphine Inj) 2 mg IV.PUSH Q3H PRN PRN Reason: PAIN 6-10 Last Admin: 05/21/18 06:54 Dose: 2 mg Nitroglycerin (Nitro-Bid 2% Oint) 1 inch TOPICAL Q6HR [facility] Last Admin: 05/21/18 14:17 Dose: 1 inch Nitroglycerin (Nitrostat Sl) 0.4 mg SL Q5M PRN PRN Reason: CHEST PAIN Ondansetron HCl (Zofran Inj) 4 mg IV.PUSH Q6H PRN PRN Reason: NAUSEA OR VOMITING Ondansetron HCl (Zofran Inj) 4 mg IV.PUSH UNSCH PRN PRN Reason: NAUSEA OR VOMITING Pharmacy Profile Note (Vancomycin Consult Pharmacy) 1 each OTHER UNSCH PRN PRN Reason: PHARMACY TO DOSE Phenytoin Sodium (Dilantin) 200 mg PO BID [facility] Last Admin: 05/21/18 08:43 Dose: 200 mg Senna/Docusate Sodium (Winifred-Colace) 1 tab PO BID [facility] Last Admin: 05/21/18 08:42 Dose: 1 tab Sennosides (Senokot) 17.2 mg PO Q12H PRN PRN Reason: Moderate Constipation Sodium Chloride (Ns Flush) 2 ml IV.FLUSH BID [facility] Last Admin: 05/21/18 08:43 Dose: 2 ml Sodium Chloride (Ns Flush) 2 ml IV.FLUSH PRN PRN PRN Reason: FLUSH AFTER USING IV ACCESS Sodium Chloride (Ns Flush) 5 ml IV.FLUSH PRN PRN PRN Reason: flush each lumen during HD Ticagrelor (Brilinta) 90 mg PO BID [facility] Last Admin: 05/21/18 08:43 Dose: 90 mg Allergies Allergy/AdvReac Type Severity Reaction Status Date / Time *MDRO Multi-Drug Resistant AdvReac Intermediate Abdominal Uncoded 05/21/18 00:22 Organism Pain Home Medications Medication Instructions Recorded Confirmed Type aspirin 81 mg PO DAILY 02/20/18 05/21/18 History enalapril maleate 5 mg PO DAILY 02/20/18 05/21/18 History gabapentin 300 mg PO BID 02/20/18 05/21/18 History lisinopril 10 mg PO DAILY 02/20/18 05/21/18 History metoclopramide HCl 5 mg PO TID 02/20/18 05/21/18 History phenytoin sodium extended 200 mg PO BID 02/20/18 05/21/18 History [Phenytek] insulin detemir U-100 [Levemir 34 units SUB-Q DAILY 03/15/18 05/21/18 History U-100 Insulin] Physical Exam Vital signs: Vital Signs 05/21/18 00:18 05/21/18 00:28 05/21/18 00:33 Temperature 98.6 F Pulse Rate 82 81 Respiratory Rate 16 Blood Pressure 130/59 L Pulse Oximetry 96 96 05/21/18 01:00 05/21/18 01:35 05/21/18 02:00 Temperature Pulse Rate 80 77 Respiratory Rate 24 17 21 Blood Pressure 137/61 136/63 Pulse Oximetry 99 99 05/21/18 04:00 05/21/18 07:36 05/21/18 07:54 Temperature 98.4 F 101.8 F H Pulse Rate 88 87 98 H Respiratory Rate 18 20 Blood Pressure 175/78 H 167/79 H Pulse Oximetry 99 98 05/21/18 08:22 05/21/18 12:00 05/21/18 15:05 Temperature 100.8 F H Pulse Rate 90 Respiratory Rate 19 Blood Pressure 162/80 H Pulse Oximetry 98 98 98 05/21/18 15:17 Temperature 102.5 F H Pulse Rate 140 H Respiratory Rate 30 H Blood Pressure 200/80 H Pulse Oximetry Intake & Output 05/20/18 05/21/18 05/21/18 18:59 06:59 18:59 Intake Total 120 / 120 Balance 120 / 120 Weight 129.727 kg Intake: Oral 120 / 120 Other: # Voids 0 Narrative: GEN: Chronically ill-appearing, sleepy but arousable, appears uncomfortable HEENT: NCAT, PERRL NECK: Trachea midline CARDIO: Rapid, irregular PULM: Diminished breath sounds at bases bilaterally ABD/GI: Obese, soft, non-tender in all quadrants EXT/MSK: AVF in LUE with palpable bruit, (+) thrill, surrounding erythema and warmth, blanchable, no blisters or crepitus, minimal tenderness. Multiple previous toe amputations. Multiple scaling crusting chronic-appearing sores to bilateral lower legs. Trace peripheral edema. SKIN: As noted above NEURO: Sleepy but arousable to loud voice/ tactile stimulation. Can tell me his name but does not answer other questions. Follows some commands. Protecting airway. GCS 13 ([id number]) PSYCH: No agitation Septic Shock Reassessment Septic shock perfusion: reassessment completed Assessment and Plan - Problem List (1) Hyperkalemia Code(s): E87.5 - Hyperkalemia Status: Acute (2) Encephalopathy acute Code(s): G93.40 - Encephalopathy, unspecified Status: Acute (3) DM (diabetes mellitus) Code(s): E11.9 - Type 2 diabetes mellitus without complications Status: Chronic (4) Chest pain Code(s): R07.9 - Chest pain, unspecified Status: Acute (5) Sepsis Code(s): A41.9 - Sepsis, unspecified organism Status: Acute (6) CAD (coronary artery disease) Code(s): I25.10 - Atherosclerotic heart disease of [place] coronary artery without angina pectoris Status: Chronic (7) AV fistula Code(s): I77.0 - Arteriovenous fistula, acquired Status: Chronic - Assessment and Plan Plan: 63yM with history of ESRD on HD, CAD s/p recent stents, bradycardia s/p AICD, now with sepsis and concern for cellulitis/ AVF infection NEURO: -Frequent neuro checks -CTH when stable for transport -Delirium precautions CARDIO: -Trop negative x 3 -Patient arrived to [facility] in A fib with RVR, HR slowed to 90s after 1 dose of cardizem -CTA chest showed no PE -BP control- continue home meds but hold MARIBETH-I -Continue Brilinta and ASA, continue statin RESP: -Protecting airway, supplemental O2 PRN -ABG on 2L NC- 7.44/28/68/19/-4.7 F/E/N: -Renal/ cardiac/ diabetic diet if mental status improves, otherwise NPO -Patient found to have severe hyperkalemia, treated medically (calcium, bicarb, insulin/ glucose, kayexelate) and case discussed with Dr. Alvarado. Patient to receive HD HERBER ID: -Concern for possible AVF infection vs cellulitis adjacent to AVF; will obtain duplex to assess for vegetation/ abscess -Patient on renally dosed vanco/ zosyn, hutton-cultures sent and pending -No pneumonia seen on CXR or CT scan, no UTI noted on UA -Flu swab pending -Lower suspicion for STRIP WINDER infection but will reassess mental status after dialysis/ fever control -Lactic acid 1.6 PROPHY: -SCDs, Brilinta -No indication for PPI at this point but will start tomorrow if still not eating / encephalopathic OVERALL: This patient has altered mental status, hyperkalemia, and sepsis. He is at high risk for decompensation and requires ICU level of care. Counseling/ Coordination of Care: This patient is critically ill with impairment of one or more vital organ systems with a high probability of imminent or life-threatening deterioration. High-complexity medical decision making was required to support vital organ function and/ or prevent deterioration in the patient's condition. Total critical care time spent is 60 minutes giving full attention to this patient. This includes examining the patient, gathering history from someone other than the patient (i.e. chart review), discussing the patient's care with other providers, ordering and interpreting radiologic studies, ordering and interpreting laboratory values, managing life-threatening hyperkalemia, and documentation. Amount of time is separate from teaching, counseling the patient and/or family, and exclusive of procedures. Code Status: Full Discussed Condition With: Dr. Alvarado (nephrology)
[2018-05-21] MEDS: hydrALAZINE HCl Inj 20 MG/ML Vial IV.PUSH PRN (16:04)
[2018-05-21 16:13] LABS: Albumin 3.1 g/dL (3.4-5.0); Anion Gap 11 meq/L (5-15); Aspartate Aminotransferase 53 U/L (15-37); Blood Urea Nitrogen 54 mg/dL (7-18); Calcium 7.6 mg/dL (8.5-10.1); Chloride 98 meq/L (98-107); Glomerular Filtration Rate 11 mL/min (>89); Glucose,Random 195 mg/dL (74-106); Magnesium 1.9 mg/dL (1.5-2.5); Sodium 130 meq/L (136-145)
[2018-05-21 16:16] LABS: Potassium 7.2 meq/L (3.5-5.1)
[2018-05-21 16:23] LABS: Alanine Aminotransferase 44 U/L (12-78); Alkaline Phosphatase 174 U/L (45-117); Phosphorus 3.5 mg/dL (2.5-4.9); Total Protein 7.8 g/dL (6.4-8.2)
[2018-05-21] MEDS ORDERED: Sodium Polystyrene Sulfonate Powder 15 GM Bottle NG/OG ONE (16:45)
[2018-05-21] MEDS: Sodium Polystyrene Sulfonate/Sorbitol Liq 15 GM/60 ML UDC NG/OG ONE ×2 (17:13→17:14)
--- NOTE | 2018-05-21 17:46 | US ---
EXAM DATE: 05/21/2018 5:37 PM EST AGE/SEX: 63 years / Male INDICATIONS: Left arm swelling. CLINICAL DATA: This is the patient's subsequent encounter. Patient reports that signs and symptoms h ave been present for 1 day and indicates a pain score of Nonresponsive. MEDICAL/SURGICAL HISTORY: Diabetes. Seizures. End stage renal disease. Neuropathy. AV fistula. CAD. Cholecystectomy. Bilateral knee joint replacements. COMPARISON: [facility], US ARM LEFT VENOUS DOPPLER, 11/03/2017. . FINDINGS: The vessels are compressible and augmentation response is documented. No filling defects a re seen. The flow is phasic with respiration. The basilic vein is not well visualized due to the kevin ent's body habitus and position. The A-V graft is patent and demonstrates flow. Small amount of fluid surrounds the region of the distal graft. Other: None. CONCLUSION: 1. No evidence of deep venous thrombosis. 2. A-V graft is patent and demonstrates flow. The amount of fluid surrounds the region of the distal graft Electronically signed by: Wesley Harris MD 05/21/2018 5:44 PM EST
[2018-05-21 19:34] LABS: Hepatitits B Surface Antigen Nonreactive (Nonreactive)
[2018-05-21 19:53] LABS: Hepatitis A IgM Antibody Nonreactive (Nonreactive)
[2018-05-22] MEDS: Morphine Sulfate Inj 2 MG/ML Vial IV.PUSH PRN ×5 (00:40→21:27)
[2018-05-22] MEDS: hydrALAZINE HCl Inj 20 MG/ML Vial IV.PUSH PRN (00:41)
[2018-05-22] MEDS ORDERED: Chlorhexidine Gluconate 2% 1 Pack (2 Cloths) TOPICAL PRN (04:00)
[2018-05-22] MEDS: Chlorhexidine Gluconate 2% 1 Pack (2 Cloths) TOPICAL SCH (04:00)
[2018-05-22 05:59] LABS: Baso % (Auto) 0.1 % (0.0-2.0); Hematocrit 29.4 % (39.0-51.0); Lymph # (Auto) 0.1 th/mm3 (1.0-4.8); Mean Corpuscular HGB Conc 34.1 % (32.0-36.0); Mean Corpuscular Hemoglobin 33.2 pg (27.0-34.0); Mean Corpuscular Volume 97.3 fL (80.0-100.0); Mono # (Auto) 0.6 th/mm3 (0.0-0.9); Mono % (Auto) 8.9 % (0.0-8.0); Neut # (Auto) 6.5 th/mm3 (1.8-7.7); Platelet Count 134 th/mm3 (150-450); Red Blood Count 3.02 mil/mm3 (4.50-5.90); Red Cell Distribution Width 14.7 % (11.6-17.2); White Blood Count 7.3 th/mm3 (4.0-11.0)
[2018-05-22 06:17] LABS: Alanine Aminotransferase 82 U/L (12-78); Albumin 2.9 g/dL (3.4-5.0); Alkaline Phosphatase 159 U/L (45-117); Anion Gap 11 meq/L (5-15); Aspartate Aminotransferase 153 U/L (15-37); Blood Urea Nitrogen 45 mg/dL (7-18); Calcium 7.6 mg/dL (8.5-10.1); Chloride 97 meq/L (98-107); Glomerular Filtration Rate 14 mL/min (>89); Glucose,Random 157 mg/dL (74-106); Potassium 4.5 meq/L (3.5-5.1); Sodium 135 meq/L (136-145); Total Protein 7.5 g/dL (6.4-8.2)
--- NOTE | 2018-05-22 07:06 | P.PNCC ---
Subjective Subjective Remarks/Hospital Course: 63yM transferred to [facility] from [facility] service for sepsis. The patient presented to the ED via EMS yesterday for chest pain which he described as intermittent "discomfort", radiating to his left arm, similar to anginal-type pain he had in the past. The patient was admitted to [facility] service overnight for further evaluation of his chest pain, has had negative trop x 3, but again reported chest pain this morning around 8 AM. He had a CTA chest which was negative for PE. Throughout the course of the day, he has been noted to be confused, febrile to 103F, and developed redness and warmth to his left arm overlying the AVF. He is scheduled for HD today. On arrival to [facility], the patient was sleepy but arousable to loud voice/ tactile stimuli, is unable to provide any meaningful contribution to HPI during my exam. The patient was last admitted in February for chest pain and underwent PCI with stent to proximal obtuse marginal (maintained on chronic Brillinta/ aspirin) as well as dual chamber right-sided PPM for symptomatic bradycardia. Product Development Specialist is Dr. Rizo. He additionally has a PMH of ESRD on HD , last dialyzed 2 days ago, receives HD via LUE AV graft. 05/22: Patient dialyzed yesterday evening for potassium of 7.2, 3500 cc removed. Fever curve improved overnight. US duplex of LUE shows small fluid collections around distal end of graft. Aerobic and anaerobic blood cultures positive x 2 for GPCs in pairs and clusters. Mental status is much improved this morning as compared to yesterday. Objective Vital Signs / I&O: Vital Signs 05/21/18 07:36 05/21/18 07:54 05/21/18 08:22 Temperature 101.8 F H Pulse Rate 87 98 H Respiratory Rate 20 Blood Pressure 167/79 H Pulse Oximetry 98 98 05/21/18 12:00 05/21/18 15:05 05/21/18 15:17 Temperature 100.8 F H 102.5 F H Pulse Rate 90 140 H Respiratory Rate 19 30 H Blood Pressure 162/80 H 200/80 H Pulse Oximetry 98 98 05/21/18 16:00 05/21/18 17:22 05/21/18 17:30 Temperature 104.4 F H Pulse Rate 104 H 78 75 Respiratory Rate 37 H 26 H 26 H Blood Pressure 211/82 H 152/59 H Pulse Oximetry 98 100 100 05/21/18 17:45 05/21/18 18:00 05/21/18 18:15 Temperature Pulse Rate 68 64 62 Respiratory Rate 25 H 22 23 Blood Pressure 132/56 L 102/51 L 116/55 L Pulse Oximetry 100 100 100 05/21/18 18:30 05/21/18 18:45 05/21/18 19:00 Temperature Pulse Rate 60 59 L 67 Respiratory Rate 21 28 H 18 Blood Pressure 112/53 L 108/52 L 111/54 L Pulse Oximetry 100 100 100 05/21/18 19:15 05/21/18 19:30 05/21/18 19:45 Temperature Pulse Rate 70 78 92 H Respiratory Rate 16 19 24 Blood Pressure 111/56 L 152/100 H 131/61 Pulse Oximetry 100 85 L 100 05/21/18 20:00 05/21/18 20:05 05/21/18 20:15 Temperature Pulse Rate 89 90 Respiratory Rate 17 18 Blood Pressure 129/60 145/64 H Pulse Oximetry 100 100 100 05/21/18 20:30 05/21/18 20:45 05/21/18 21:00 Temperature Pulse Rate 88 91 H 89 Respiratory Rate 17 18 18 Blood Pressure 123/50 L 140/65 154/65 H Pulse Oximetry 100 100 100 05/21/18 21:15 05/21/18 21:30 05/21/18 21:45 Temperature Pulse Rate 91 H 86 89 Respiratory Rate 19 15 17 Blood Pressure 169/69 H 146/61 H 144/65 H Pulse Oximetry 100 100 100 05/21/18 22:00 05/21/18 22:30 05/21/18 22:45 Temperature Pulse Rate 86 86 89 Respiratory Rate 16 20 20 Blood Pressure 172/68 H 143/63 H 164/67 H Pulse Oximetry 100 100 100 05/21/18 22:52 05/21/18 23:00 05/21/18 23:15 Temperature 100.5 F H Pulse Rate 92 H 91 H 89 Respiratory Rate 24 19 Blood Pressure 148/65 H 162/67 H Pulse Oximetry 100 100 05/21/18 23:30 05/21/18 23:45 05/22/18 00:00 Temperature 100.9 F H Pulse Rate 88 88 82 Respiratory Rate 21 22 22 Blood Pressure 161/67 H 160/69 H 161/68 H Pulse Oximetry 100 100 100 05/22/18 00:15 05/22/18 00:31 05/22/18 00:45 Temperature 100.1 F H Pulse Rate 83 80 76 Respiratory Rate 22 18 17 Blood Pressure 161/65 H 203/77 H 212/81 H Pulse Oximetry 100 100 100 05/22/18 00:55 05/22/18 01:00 05/22/18 01:15 Temperature Pulse Rate 78 80 90 Respiratory Rate 17 23 25 H Blood Pressure 167/71 H 149/64 H 147/66 H Pulse Oximetry 100 100 99 05/22/18 01:31 05/22/18 01:55 05/22/18 02:00 Temperature Pulse Rate 90 80 80 Respiratory Rate 22 17 17 Blood Pressure 169/70 H 170/70 H 172/66 H Pulse Oximetry 99 100 100 05/22/18 02:15 05/22/18 02:30 05/22/18 02:45 Temperature Pulse Rate 80 78 83 Respiratory Rate 18 14 23 Blood Pressure 171/73 H 156/68 H 170/70 H Pulse Oximetry 100 100 99 05/22/18 03:00 05/22/18 03:15 05/22/18 03:30 Temperature Pulse Rate 79 79 78 Respiratory Rate 16 15 15 Blood Pressure 177/72 H 179/77 H 174/74 H Pulse Oximetry 100 100 100 05/22/18 03:45 05/22/18 04:00 05/22/18 04:11 Temperature 97.6 F Pulse Rate 77 79 79 Respiratory Rate 14 19 23 Blood Pressure 182/72 H 174/70 H 150/67 H Pulse Oximetry 100 100 05/22/18 04:35 05/22/18 04:45 05/22/18 05:00 Temperature Pulse Rate 78 79 79 Respiratory Rate 18 17 20 Blood Pressure 184/74 H 179/76 H 173/67 H Pulse Oximetry 100 100 100 05/22/18 05:15 05/22/18 05:30 05/22/18 05:45 Temperature Pulse Rate 75 75 74 Respiratory Rate 11 L 13 13 Blood Pressure 178/72 H 177/66 H 162/69 H Pulse Oximetry 100 100 100 05/22/18 06:00 05/22/18 06:55 Temperature Pulse Rate 74 74 Respiratory Rate 14 Blood Pressure 136/63 Pulse Oximetry 100 Intake & Output 05/21/18 05/22/18 05/22/18 18:59 06:59 18:59 Intake Total 905 / 905 50 / 50 Output Total 3500 / 3500 Balance 905 / 905 -3450 / -3450 Weight 132.5 kg Intake: IV 785 / 785 50 / 50 Ofirmev Inj 1,000 mg In 100 ml 100 / 100 @ 300 mls/hr IV.SIG Q6H PRN Rx# :[id number] Calcium Gluconate Inj 1 GM In 110 / 110 D5W Inj 100 ML @ 110 mls/hr IV. SIG ONCE ONE Rx#:[id number] Zosyn 2.25 GM Premix 50 ML @ 50 / 50 50 / 50 100 mls/hr IV.SIG Q12H SKIP Rx#: [id number] Vancomycin Inj 2,500 MG In NS 525 / 525 Inj 500 ML @ 250 mls/hr IV.SIG WITH DIALYSIS ONE Rx#:[id number] Oral 120 / 120 0 / 0 Output: Hemodialysis Amount 3500 / 3500 Other: # Voids 0 Date of Last Bowel Movement 05/20/18 05/20/18 # Incontinent Bowel Movements 0 Result Diagrams: 05/22/18 05:09 05/22/18 05:09 Objective Remarks: GEN: Awake and alert, no disutress HEENT: NCAT, PERRL, NGT in place NECK: Trachea midline CARDIO: Regular rate and rhythm in 70s PULM: Clear to auscultation bilaterally ABD/GI: Obese, soft, non-tender in all quadrants EXT/MSK: AVF in LUE with palpable bruit, (+) thrill,no surrounding erythema or warmth today, no blisters or crepitus, non-tender. Multiple previous toe amputations. Multiple scaling crusting chronic-appearing sores to bilateral lower legs. Trace peripheral edema. SKIN: As noted above NEURO: AA&Ox3, answers all questions appropriately, moves all extremities, no neuro deficits PSYCH: Calm, appropriate affect Assessment and Plan - Problem List (1) Hyperkalemia Code(s): E87.5 - Hyperkalemia Status: Acute (2) Encephalopathy acute Code(s): G93.40 - Encephalopathy, unspecified Status: Acute (3) DM (diabetes mellitus) Code(s): E11.9 - Type 2 diabetes mellitus without complications Status: Chronic (4) Chest pain Code(s): R07.9 - Chest pain, unspecified Status: Acute (5) Sepsis Code(s): A41.9 - Sepsis, unspecified organism Status: Acute (6) CAD (coronary artery disease) Code(s): I25.10 - Atherosclerotic heart disease of [place] coronary artery without angina pectoris Status: Chronic (7) AV fistula Code(s): I77.0 - Arteriovenous fistula, acquired Status: Chronic (8) Gram-positive bacteremia Code(s): R78.81 - Bacteremia Status: Acute - Assessment and Plan Plan: 63yM with history of ESRD on HD, CAD s/p recent stents, bradycardia s/p AICD, now with sepsis and concern for cellulitis/ AVG infection NEURO: -Mental status at baseline, no deficits -Delirium precautions CARDIO: -Trop 0.11 yesterday evening, drawn following HD, otherwise hemodynamically stable -CTA chest showed no PE -BP control- continue home meds but hold MARIBETH-I -Continue Brilinta and ASA, continue statin RESP: -Incentive spirometer F/E/N: -Renal/ cardiac/ diabetic diet -D/C NGT -Resume normal HD schedule ID: -Concern for possible AVG infection vs cellulitis adjacent to AVG; duplex US shows small fluid collection at distal end of AVG, vascular consult appreciated * Dr. Maynard recommends podiatry consult as well -Patient on renally dosed vanco/ zosyn, hutton-cultures sent and pending -No pneumonia seen on CXR or CT scan, no UTI noted on UA -Flu swab pending -Gram positive cocci in 4/4 blood cultures, resend cultures today, will consult ID -Fever curve improved overnight PROPHY: -SCDs, Brilinta -No indication for PPI OVERALL: This patient has sepsis and bacteremia, resolving AMS, multiple comorbidities. He remains at high risk for decompensation and requires ICU level of care. Level 2 follow up To help prompt me to consider important information that might be impacting today's encounter and assessment, information from prior notes written by myself or my colleagues may have been "brought forward" into today's note. My signature on this note, however, is an attestation that I personally performed the exam, history, and/or decision-making noted today, and, unless otherwise indicated, the interactions with patient, family, and staff as well as the review of records all occurred today. I also attest that the listed assessment and stated plan reflect my best clinical judgment today based on the combination of historical information, prior notes, and today's exam/ interactions. Code Status: Full
[2018-05-22] MEDS: amLODIPine 5 MG Tablet PO SCH (08:17)
[2018-05-22] MEDS: Gabapentin 300 MG Capsule PO SCH ×2 (08:17→21:21)
[2018-05-22] MEDS: Senna/Docusate Sodium 8.6/50 MG Tablet PO SCH ×2 (08:18→21:22)
[2018-05-22] MEDS: Phenytoin Sodium 100 MG Capsule PO SCH ×2 (08:18→21:21)
[2018-05-22] MEDS: Metoprolol Tartrate 25 MG Tablet PO SCH ×2 (08:18→21:21)
[2018-05-22] MEDS: Sodium Chloride 0.9% 2 ML Flush BID IV.FLUSH SCH ×2 (08:18→21:22)
[2018-05-22] MEDS: Insulin NovoLOG Aspart Correctional Sugar Inj SQ SCH ×4 (08:18→21:00)
[2018-05-22] MEDS: Methocarbamol 500 MG Tablet PO SCH ×4 (08:19→22:59)
--- NOTE | 2018-05-22 09:50 | P.PNCA ---
Subjective Interval history: Pt had high fevers, moved to ICU, he says he feels poorly but no cardiac complaints at this time Medications and Allergies Active Medications: Active Medications Acetaminophen (Tylenol) 650 mg PO Q4H PRN PRN Reason: Temp > 100.4 Last Admin: 05/21/18 08:42 Dose: 650 mg Acetaminophen (Tylenol) 650 mg PO UNSCH PRN PRN Reason: SEE LABEL COMMENTS Hydrocodone Bitart/Acetaminophen ([place] 5/325) 1 tab PO Q4H PRN PRN Reason: PAIN SCALE 3 TO 5 Last Admin: 05/22/18 05:05 Dose: 1 tab Amlodipine Besylate (Norvasc) 5 mg PO DAILY [facility] Last Admin: 05/22/18 08:17 Dose: 5 mg Aspirin (Aspirin Chew) 81 mg PO DAILY [facility] Last Admin: 05/22/18 08:17 Dose: 81 mg Atorvastatin Calcium (Lipitor) 20 mg PO HS [facility] Last Admin: 05/21/18 21:28 Dose: 20 mg Bisacodyl (Dulcolax Supp) 10 mg RECTAL DAILY PRN PRN Reason: SEVERE CONSITIPATION Chlorhexidine Gluconate (Chlorhexidine 2% Cloth) 3 pack TOPICAL DAILY@0400 [facility] Stop: 05/27/18 03:59 Last Admin: 05/22/18 04:00 Dose: 3 pack Chlorhexidine Gluconate (Chlorhexidine 2% Cloth) 3 pack TOPICAL DAILY@0400 PRN PRN Reason: Extra cloth needed Stop: 05/27/18 03:59 Clonidine HCl (Catapres) 0.1 mg PO UNSCH PRN PRN Reason: SEE LABEL COMMENTS Dextrose (D50w Vial) 50 ml IV.PUSH UNSCH PRN PRN Reason: PER HYPOGLYCEMIA PROTOCOL Diphenhydramine HCl (Benadryl) 25 mg PO UNSCH PRN PRN Reason: SEE LABEL COMMENTS Epoetin Stefano (Epogen Inj) 6,000 unit IV.PUSH UNSCH PRN PRN Reason: SEE LABEL COMMENTS Last Admin: 05/21/18 20:35 Dose: 6,000 unit Gabapentin (Neurontin) 300 mg PO BID [facility] Last Admin: 05/22/18 08:17 Dose: 300 mg Gelatin (Gelfoam 12 Mm/7 Mm Topical) 1 foam TOPICAL PRN PRN PRN Reason: help stop bleeding from site Gentamicin Sulfate (Gentamicin Inj) 20 mg OTHER WITH DIALYSIS PRN PRN Reason: Dwell Gentamycin Lock Glucagon (Glucagon Inj) 1 mg OTHER PRN PRN PRN Reason: for Hypoglycemia Protocol Heparin Sodium (Porcine) (Heparin Inj) 8,000 units OTHER WITH DIALYSIS PRN PRN Reason: for machine prime Heparin Sodium (Porcine) (Heparin Inj) 1,000 units OTHER WITH DIALYSIS PRN PRN Reason: Dwell Heparin to Fill Catheter Hydralazine HCl (Apresoline Inj) 20 mg IV.PUSH Q4H PRN PRN Reason: SBP> OR = 180, DBP> OR = 100 Last Admin: 05/22/18 00:41 Dose: 20 mg Piperacillin/Tazobactam/Dextrose (Zosyn 2.25 Gm Premix) 50 mls @ 100 mls/hr IV.SIG Q12H SKIP Last Infusion: 05/22/18 00:00 Dose: Infused Albumin Human (Flexbumin 25% Inj) 100 mls @ 60 mls/hr IV.SIG WITH DIALYSIS PRN PRN Reason: hypotension / volume replace Sodium Chloride (Ns Inj) 1,000 mls @ 0 mls/hr OTHER .Q0M PRN PRN Reason: for prime and rinse back Sodium Chloride (Ns Inj) 1,000 mls @ 200 mls/hr OTHER .Q5H PRN PRN Reason: for dialyzer flush PRN Sodium Chloride (Ns Inj) 1,000 mls @ 0 mls/hr IV.CONT .Q0M PRN PRN Reason: hypotension / volume replace Acetaminophen (Ofirmev Inj) 1,000 mg in 100 mls @ 300 mls/hr IV.SIG Q6H PRN PRN Reason: FEVER Last Infusion: 05/21/18 17:00 Dose: Infused Insulin Aspart (Novolog Insulin [place] Sugar Inj) 0 unit SQ ACHS [facility]; Protocol Last Admin: 05/22/18 08:18 Dose: Not Given Labetalol HCl (Trandate Inj) 10 mg IV.PUSH Q4H PRN PRN Reason: SBP>180, DBP>100, HR>65 Lactulose (Lactulose Liq) 30 ml PO DAILY PRN PRN Reason: SEVERE CONSITIPATION Mannitol (Mannitol Inj) 12.5 gm IV.PUSH UNSCH PRN PRN Reason: hypotension / volume replace Methocarbamol (Robaxin) 500 mg PO QID [facility] Last Admin: 05/22/18 08:19 Dose: Not Given Metoprolol Tartrate (Lopressor) 25 mg PO BID [facility] Last Admin: 05/22/18 08:18 Dose: 25 mg Morphine Sulfate (Morphine Inj) 2 mg IV.PUSH Q3H PRN PRN Reason: PAIN 6-10 Last Admin: 05/22/18 05:04 Dose: 2 mg Nitroglycerin (Nitro-Bid 2% Oint) 1 inch TOPICAL Q6HR [facility] Last Admin: 05/22/18 06:04 Dose: 1 inch Nitroglycerin (Nitrostat Sl) 0.4 mg SL Q5M PRN PRN Reason: CHEST PAIN Ondansetron HCl (Zofran Inj) 4 mg IV.PUSH Q6H PRN PRN Reason: NAUSEA OR VOMITING Ondansetron HCl (Zofran Inj) 4 mg IV.PUSH UNSCH PRN PRN Reason: NAUSEA OR VOMITING Pharmacy Profile Note (Vancomycin Consult Pharmacy) 1 each OTHER UNSCH PRN PRN Reason: PHARMACY TO DOSE Phenytoin Sodium (Dilantin) 200 mg PO BID [facility] Last Admin: 05/22/18 08:18 Dose: 200 mg Senna/Docusate Sodium (Winifred-Colace) 1 tab PO BID [facility] Last Admin: 05/22/18 08:18 Dose: 1 tab Sennosides (Senokot) 17.2 mg PO Q12H PRN PRN Reason: Moderate Constipation Sodium Chloride (Ns Flush) 2 ml IV.FLUSH BID [facility] Last Admin: 05/22/18 08:18 Dose: 2 ml Sodium Chloride (Ns Flush) 2 ml IV.FLUSH PRN PRN PRN Reason: FLUSH AFTER USING IV ACCESS Sodium Chloride (Ns Flush) 5 ml IV.FLUSH PRN PRN PRN Reason: flush each lumen during HD Ticagrelor (Brilinta) 90 mg PO BID [facility] Last Admin: 05/22/18 08:17 Dose: 90 mg Allergies Allergy/AdvReac Type Severity Reaction Status Date / Time *MDRO Multi-Drug Resistant AdvReac Intermediate Abdominal Uncoded 05/21/18 00:22 Organism Pain Home Medications Medication Instructions Recorded Confirmed Type aspirin 81 mg PO DAILY 02/20/18 05/21/18 History enalapril maleate 5 mg PO DAILY 02/20/18 05/21/18 History gabapentin 300 mg PO BID 02/20/18 05/21/18 History lisinopril 10 mg PO DAILY 02/20/18 05/21/18 History metoclopramide HCl 5 mg PO TID 02/20/18 05/21/18 History phenytoin sodium extended 200 mg PO BID 02/20/18 05/21/18 History [Phenytek] insulin detemir U-100 [Levemir 34 units SUB-Q DAILY 03/15/18 05/21/18 History U-100 Insulin] Physical Exam Vital signs: Vital Signs 05/21/18 12:00 05/21/18 15:05 05/21/18 15:17 Temperature 100.8 F H 102.5 F H Pulse Rate 90 140 H Respiratory Rate 19 30 H Blood Pressure 162/80 H 200/80 H Pulse Oximetry 98 98 05/21/18 16:00 05/21/18 17:22 05/21/18 17:30 Temperature 104.4 F H Pulse Rate 104 H 78 75 Respiratory Rate 37 H 26 H 26 H Blood Pressure 211/82 H 152/59 H Pulse Oximetry 98 100 100 05/21/18 17:45 05/21/18 18:00 05/21/18 18:15 Temperature Pulse Rate 68 64 62 Respiratory Rate 25 H 22 23 Blood Pressure 132/56 L 102/51 L 116/55 L Pulse Oximetry 100 100 100 05/21/18 18:30 05/21/18 18:45 05/21/18 19:00 Temperature Pulse Rate 60 59 L 67 Respiratory Rate 21 28 H 18 Blood Pressure 112/53 L 108/52 L 111/54 L Pulse Oximetry 100 100 100 05/21/18 19:15 05/21/18 19:30 05/21/18 19:45 Temperature Pulse Rate 70 78 92 H Respiratory Rate 16 19 24 Blood Pressure 111/56 L 152/100 H 131/61 Pulse Oximetry 100 85 L 100 05/21/18 20:00 05/21/18 20:05 05/21/18 20:15 Temperature Pulse Rate 89 90 Respiratory Rate 17 18 Blood Pressure 129/60 145/64 H Pulse Oximetry 100 100 100 05/21/18 20:30 05/21/18 20:45 05/21/18 21:00 Temperature Pulse Rate 88 91 H 89 Respiratory Rate 17 18 18 Blood Pressure 123/50 L 140/65 154/65 H Pulse Oximetry 100 100 100 05/21/18 21:15 05/21/18 21:30 05/21/18 21:45 Temperature Pulse Rate 91 H 86 89 Respiratory Rate 19 15 17 Blood Pressure 169/69 H 146/61 H 144/65 H Pulse Oximetry 100 100 100 05/21/18 22:00 05/21/18 22:30 05/21/18 22:45 Temperature Pulse Rate 86 86 89 Respiratory Rate 16 20 20 Blood Pressure 172/68 H 143/63 H 164/67 H Pulse Oximetry 100 100 100 05/21/18 22:52 05/21/18 23:00 05/21/18 23:15 Temperature 100.5 F H Pulse Rate 92 H 91 H 89 Respiratory Rate 24 19 Blood Pressure 148/65 H 162/67 H Pulse Oximetry 100 100 05/21/18 23:30 05/21/18 23:45 05/22/18 00:00 Temperature 100.9 F H Pulse Rate 88 88 82 Respiratory Rate 21 22 22 Blood Pressure 161/67 H 160/69 H 161/68 H Pulse Oximetry 100 100 100 05/22/18 00:15 05/22/18 00:31 05/22/18 00:45 Temperature 100.1 F H Pulse Rate 83 80 76 Respiratory Rate 22 18 17 Blood Pressure 161/65 H 203/77 H 212/81 H Pulse Oximetry 100 100 100 05/22/18 00:55 05/22/18 01:00 05/22/18 01:15 Temperature Pulse Rate 78 80 90 Respiratory Rate 17 23 25 H Blood Pressure 167/71 H 149/64 H 147/66 H Pulse Oximetry 100 100 99 05/22/18 01:31 05/22/18 01:55 05/22/18 02:00 Temperature Pulse Rate 90 80 80 Respiratory Rate 22 17 17 Blood Pressure 169/70 H 170/70 H 172/66 H Pulse Oximetry 99 100 100 05/22/18 02:15 05/22/18 02:30 05/22/18 02:45 Temperature Pulse Rate 80 78 83 Respiratory Rate 18 14 23 Blood Pressure 171/73 H 156/68 H 170/70 H Pulse Oximetry 100 100 99 05/22/18 03:00 05/22/18 03:15 05/22/18 03:30 Temperature Pulse Rate 79 79 78 Respiratory Rate 16 15 15 Blood Pressure 177/72 H 179/77 H 174/74 H Pulse Oximetry 100 100 100 05/22/18 03:45 05/22/18 04:00 05/22/18 04:11 Temperature 97.6 F Pulse Rate 77 79 79 Respiratory Rate 14 19 23 Blood Pressure 182/72 H 174/70 H 150/67 H Pulse Oximetry 100 100 05/22/18 04:35 05/22/18 04:45 05/22/18 05:00 Temperature Pulse Rate 78 79 79 Respiratory Rate 18 17 20 Blood Pressure 184/74 H 179/76 H 173/67 H Pulse Oximetry 100 100 100 05/22/18 05:15 05/22/18 05:30 05/22/18 05:45 Temperature Pulse Rate 75 75 74 Respiratory Rate 11 L 13 13 Blood Pressure 178/72 H 177/66 H 162/69 H Pulse Oximetry 100 100 100 05/22/18 06:00 05/22/18 06:15 05/22/18 06:30 Temperature Pulse Rate 74 72 74 Respiratory Rate 14 14 13 Blood Pressure 136/63 132/60 140/63 Pulse Oximetry 100 100 100 05/22/18 06:45 05/22/18 06:55 05/22/18 07:00 Temperature Pulse Rate 75 74 75 Respiratory Rate 20 14 Blood Pressure 146/61 H 145/61 H Pulse Oximetry 100 100 05/22/18 07:15 05/22/18 07:30 05/22/18 07:45 Temperature Pulse Rate 76 75 76 Respiratory Rate 15 16 24 Blood Pressure 156/65 H 153/67 H 148/64 H Pulse Oximetry 99 100 99 05/22/18 08:00 05/22/18 08:15 05/22/18 08:30 Temperature 97.5 F L Pulse Rate 76 77 75 Respiratory Rate 21 14 15 Blood Pressure 145/60 H 153/63 H 143/63 H Pulse Oximetry 99 99 99 05/22/18 08:45 05/22/18 09:00 05/22/18 09:15 Temperature Pulse Rate 75 76 73 Respiratory Rate 13 8 L 13 Blood Pressure 144/60 H 142/61 H 135/63 Pulse Oximetry 100 100 99 Intake & Output 05/21/18 05/22/18 05/22/18 18:59 06:59 18:59 Intake Total 905 / 905 50 / 50 Output Total 3500 / 3500 Balance 905 / 905 -3450 / -3450 Weight 132.5 kg Intake: IV 785 / 785 50 / 50 Ofirmev Inj 1,000 mg In 100 ml 100 / 100 @ 300 mls/hr IV.SIG Q6H PRN Rx# :[id number] Calcium Gluconate Inj 1 GM In 110 / 110 D5W Inj 100 ML @ 110 mls/hr IV. SIG ONCE ONE Rx#:[id number] Zosyn 2.25 GM Premix 50 ML @ 50 / 50 50 / 50 100 mls/hr IV.SIG Q12H SKIP Rx#: [id number] Vancomycin Inj 2,500 MG In NS 525 / 525 Inj 500 ML @ 250 mls/hr IV.SIG WITH DIALYSIS ONE Rx#:[id number] Oral 120 / 120 0 / 0 Output: Hemodialysis Amount 3500 / 3500 Other: # Voids 0 Date of Last Bowel Movement 05/20/18 05/20/18 05/20/18 # Incontinent Bowel Movements 0 - Constitutional no acute distress - Routine HEENT Exam Head: Present: normocephalic Eye: Present: EOMI ENT: Present: mucous membranes moist - Routine Neck Exam Present: supple. Absent: JVD - Routine Respiratory Exam Present: CTA bilaterally - Routine Cardiovascular Exam Present: RRR - Routine Extremities Exam Absent: edema Results 05/22/18 05:09 05/22/18 05:09 Cardiac Enzymes 05/21/18 05/21/18 05/21/18 Range/Units 01:05 01:05 09:50 AST 28 (15-37) U/L Troponin I Less than 0.02 L Less than 0.02 L (0.02-0.05) ng/mL B-Natriuretic Peptide 254 H (0-100) pg/mL 05/21/18 05/21/18 05/21/18 Range/Units 14:51 15:41 20:44 AST 53 H (15-37) U/L Troponin I Less than 0.02 L 0.11 H (0.02-0.05) ng/mL B-Natriuretic Peptide (0-100) pg/mL 05/22/18 Range/Units 05:09 AST 153 H (15-37) U/L Troponin I (0.02-0.05) ng/mL B-Natriuretic Peptide (0-100) pg/mL Coagulation 05/21/18 Range/Units 01:05 B-Natriuretic Peptide 254 H (0-100) pg/mL CBC 05/21/18 05/21/18 05/22/18 Range/Units 01:05 15:41 05:09 WBC 6.7 8.3 7.3 (4.0-11.0) th/mm3 RBC 2.74 L 2.98 L 3.02 L (4.50-5.90) mil/mm3 Hgb 9.2 L 10.0 L 10.0 L (13.0-17.0) gm/dL Hct 26.7 L 29.4 L 29.4 L (39.0-51.0) % Plt Count 154 140 L 134 L (150-450) th/mm3 Neut # (Auto) 5.1 7.6 6.5 (1.8-7.7) th/mm3 Lymph # (Auto) 0.6 L 0.1 L 0.1 L (1.0-4.8) th/mm3 [place] # (Auto) 0.8 0.6 0.6 (0.0-0.9) th/mm3 Eos # (Auto) 0.1 0.0 0.0 (0.0-0.4) th/mm3 Baso # (Auto) 0.0 0.0 0.0 (0.0-0.2) th/mm3 Comprehensive Metabolic Panel 05/21/18 05/21/18 05/22/18 Range/Units 01:05 15:41 05:09 Sodium 134 L 130 L 135 L (136-145) meq/L Potassium 5.4 H 7.2 H* D 4.5 D (3.5-5.1) meq/L Chloride 101 98 97 L (98-107) meq/L Carbon Dioxide 25.5 21.0 27.0 (21.0-32.0) meq/L BUN 44 H 54 H 45 H (7-18) mg/dL Creatinine 4.50 H 5.15 H 4.38 H (0.60-1.30) mg/dL Calcium 7.8 L 7.6 L 7.6 L (8.5-10.1) mg/dL AST 28 53 H 153 H (15-37) U/L ALT 37 44 82 H (12-78) U/L Alkaline Phosphatase 160 H 174 H 159 H (45-117) U/L Total Protein 7.5 7.8 7.5 (6.4-8.2) g/dL Albumin 3.0 L 3.1 L 2.9 L (3.4-5.0) g/dL Intake and Output 05/21/18 05/22/18 05/22/18 22:59 06:59 14:59 Intake Total 735 / 735 50 / 50 Output Total 3500 / 3500 Balance -2765 / -2765 50 / 50 Intake: IV 735 / 735 50 / 50 Ofirmev Inj 1,000 mg In 100 ml 100 / 100 @ 300 mls/hr IV.SIG Q6H PRN Rx# :[id number] Calcium Gluconate Inj 1 GM In 110 / 110 D5W Inj 100 ML @ 110 mls/hr IV. SIG ONCE ONE Rx#:[id number] Zosyn 2.25 GM Premix 50 ML @ 50 / 50 100 mls/hr IV.SIG Q12H SKIP Rx#: [id number] Vancomycin Inj 2,500 MG In NS 525 / 525 Inj 500 ML @ 250 mls/hr IV.SIG WITH DIALYSIS ONE Rx#:[id number] Oral 0 / 0 Output: Hemodialysis Amount 3500 / 3500 Other: # Voids 0 Date of Last Bowel Movement 05/20/18 05/20/18 05/20/18 # Incontinent Bowel Movements 0 Weight 132.5 kg - Imaging and Cardiology Imaging: Impressions Chest CTA 05/21/18 00:00 CONCLUSION: 1. No evidence of pulmonary embolism. 2. Minimal scattered ground-glass densities are noted consistent with minimal pulmonary vascular congestion versus atelectatic changes. 3. Coronary artery calcifications. 4. Tiny bilateral pleural effusions. 5. Splenomegaly. 6. Pneumobilia. 7. 13 mm right thyroid lobe nodule. 8. Degenerative changes throughout the thoracic spine. Chest X-Ray 05/21/18 00:28 CONCLUSION: Small lung volumes with an elevated right hemidiaphragm. Right subclavian bipolar pacer Venous Doppler Study 05/21/18 15:48 CONCLUSION: 1. No evidence of deep venous thrombosis. 2. A-V graft is patent and demonstrates flow. The amount of fluid surrounds the region of the distal graft Assessment and Plan - Assessment (1) Fever Code(s): R50.9 - Fever, unspecified Status: Acute Plan: flu pending, thus far no source - Plan chest pain; vague part of essentially total body pain, worse abdm; trop increased slightly in ESRD so very nonspecific; given fevers and no clear cardiac sx would continue medical mgt for now (1) Fever Qualifiers: Fever type: unspecified Qualified Code(s): R50.9 - Fever, unspecified
--- NOTE | 2018-05-22 10:12 | P.CONVS ---
History of Present Illness Service: Vascular surgery Consult date: 05/22/18 Requesting Physician: Mariah Villanueva Reason for Consult: possible infected access Primary Care Provider: No Primary Care Physician Chief Complaint: Chest Pain History of Present Illness: 63 yo male who said he got dizzy and was admitted, initial to medical service but then transferred to ICU for sepsis. He is markedly febrile and blood cultures from yesterday show GPC. Has a L UE AVG placed 6m ago by outside vascular surgeon. The patient notes that his HD center has difficulty finding it but otherwise no hand troubles. No drainage from access. By review of the EMR, the access site was cellulitic on arrival. A duplex shows some fluid around distal AVG. Of note, he says he walks. Review of Systems Constitutional: Reports fever(s) Cardiovascular: Reports chest pain, Reports lightheadedness Gastrointestinal: Denies abdominal pain Musculoskeletal: Reports joint pain PMFSH - History History Provided By: Patient - Medical History Medical History: Medical History (Last Reviewed 05/22/18 @ 10:07 by Wesley Maynard MD) Neuropathy (Acute) AV fistula (Chronic) Coronary artery disease Diabetes End stage renal disease History of amputation of great toe of both feet Seizure - Surgical History Surgical History: Surgical History (Last Reviewed 05/22/18 @ 10:08 by Wesley Maynard MD) Knee joint replacement status (Acute) History of cholecystectomy - Tobacco History Second Hand Smoke Exposure: Yes Tobacco Use In Past 30 Days: No Smoking Status: Never smoker - Alcohol History How Often Do You Have a Drink Containing Alcohol: Never - Substance Use History Substance History: No History of Abuse - Travel History Recent Travel in the [place] Within the Last 8 Weeks: No Recent Travel Out of the Country Within the Last 8 Weeks: No - Immunization History Tetanus Immunization: <5 Years Medications and Allergies Active Medications: Active Medications Acetaminophen (Tylenol) 650 mg PO Q4H PRN PRN Reason: Temp > 100.4 Last Admin: 05/21/18 08:42 Dose: 650 mg Acetaminophen (Tylenol) 650 mg PO UNSCH PRN PRN Reason: SEE LABEL COMMENTS Hydrocodone Bitart/Acetaminophen ([place] 5/325) 1 tab PO Q4H PRN PRN Reason: PAIN SCALE 3 TO 5 Last Admin: 05/22/18 05:05 Dose: 1 tab Amlodipine Besylate (Norvasc) 5 mg PO DAILY SKIP Last Admin: 05/22/18 08:17 Dose: 5 mg Aspirin (Aspirin Chew) 81 mg PO DAILY [facility] Last Admin: 05/22/18 08:17 Dose: 81 mg Atorvastatin Calcium (Lipitor) 20 mg PO HS [facility] Last Admin: 05/21/18 21:28 Dose: 20 mg Bisacodyl (Dulcolax Supp) 10 mg RECTAL DAILY PRN PRN Reason: SEVERE CONSITIPATION Chlorhexidine Gluconate (Chlorhexidine 2% Cloth) 3 pack TOPICAL DAILY@0400 [facility] Stop: 05/27/18 03:59 Last Admin: 05/22/18 04:00 Dose: 3 pack Chlorhexidine Gluconate (Chlorhexidine 2% Cloth) 3 pack TOPICAL DAILY@0400 PRN PRN Reason: Extra cloth needed Stop: 05/27/18 03:59 Clonidine HCl (Catapres) 0.1 mg PO UNSCH PRN PRN Reason: SEE LABEL COMMENTS Dextrose (D50w Vial) 50 ml IV.PUSH UNSCH PRN PRN Reason: PER HYPOGLYCEMIA PROTOCOL Diphenhydramine HCl (Benadryl) 25 mg PO UNSCH PRN PRN Reason: SEE LABEL COMMENTS Epoetin Stefano (Epogen Inj) 6,000 unit IV.PUSH UNSCH PRN PRN Reason: SEE LABEL COMMENTS Last Admin: 05/21/18 20:35 Dose: 6,000 unit Gabapentin (Neurontin) 300 mg PO BID [facility] Last Admin: 05/22/18 08:17 Dose: 300 mg Gelatin (Gelfoam 12 Mm/7 Mm Topical) 1 foam TOPICAL PRN PRN PRN Reason: help stop bleeding from site Gentamicin Sulfate (Gentamicin Inj) 20 mg OTHER WITH DIALYSIS PRN PRN Reason: Dwell Gentamycin Lock Glucagon (Glucagon Inj) 1 mg OTHER PRN PRN PRN Reason: for Hypoglycemia Protocol Heparin Sodium (Porcine) (Heparin Inj) 8,000 units OTHER WITH DIALYSIS PRN PRN Reason: for machine prime Heparin Sodium (Porcine) (Heparin Inj) 1,000 units OTHER WITH DIALYSIS PRN PRN Reason: Dwell Heparin to Fill Catheter Hydralazine HCl (Apresoline Inj) 20 mg IV.PUSH Q4H PRN PRN Reason: SBP> OR = 180, DBP> OR = 100 Last Admin: 05/22/18 00:41 Dose: 20 mg Piperacillin/Tazobactam/Dextrose (Zosyn 2.25 Gm Premix) 50 mls @ 100 mls/hr IV.SIG Q12H [facility] Last Infusion: 05/22/18 00:00 Dose: Infused Albumin Human (Flexbumin 25% Inj) 100 mls @ 60 mls/hr IV.SIG WITH DIALYSIS PRN PRN Reason: hypotension / volume replace Sodium Chloride (Ns Inj) 1,000 mls @ 0 mls/hr OTHER .Q0M PRN PRN Reason: for prime and rinse back Sodium Chloride (Ns Inj) 1,000 mls @ 200 mls/hr OTHER .Q5H PRN PRN Reason: for dialyzer flush PRN Sodium Chloride (Ns Inj) 1,000 mls @ 0 mls/hr IV.CONT .Q0M PRN PRN Reason: hypotension / volume replace Acetaminophen (Ofirmev Inj) 1,000 mg in 100 mls @ 300 mls/hr IV.SIG Q6H PRN PRN Reason: FEVER Last Infusion: 05/21/18 17:00 Dose: Infused Insulin Aspart (Novolog Insulin Correctional Sugar Inj) 0 unit SQ ACHS [facility]; Protocol Last Admin: 05/22/18 08:18 Dose: Not Given Labetalol HCl (Trandate Inj) 10 mg IV.PUSH Q4H PRN PRN Reason: SBP>180, DBP>100, HR>65 Lactulose (Lactulose Liq) 30 ml PO DAILY PRN PRN Reason: SEVERE CONSITIPATION Mannitol (Mannitol Inj) 12.5 gm IV.PUSH UNSCH PRN PRN Reason: hypotension / volume replace Methocarbamol (Robaxin) 500 mg PO QID [facility] Last Admin: 05/22/18 08:19 Dose: Not Given Metoprolol Tartrate (Lopressor) 25 mg PO BID [facility] Last Admin: 05/22/18 08:18 Dose: 25 mg Morphine Sulfate (Morphine Inj) 2 mg IV.PUSH Q3H PRN PRN Reason: PAIN 6-10 Last Admin: 05/22/18 05:04 Dose: 2 mg Nitroglycerin (Nitro-Bid 2% Oint) 1 inch TOPICAL Q6HR [facility] Last Admin: 05/22/18 06:04 Dose: 1 inch Nitroglycerin (Nitrostat Sl) 0.4 mg SL Q5M PRN PRN Reason: CHEST PAIN Ondansetron HCl (Zofran Inj) 4 mg IV.PUSH Q6H PRN PRN Reason: NAUSEA OR VOMITING Ondansetron HCl (Zofran Inj) 4 mg IV.PUSH UNSCH PRN PRN Reason: NAUSEA OR VOMITING Pharmacy Profile Note (Vancomycin Consult Pharmacy) 1 each OTHER UNSCH PRN PRN Reason: PHARMACY TO DOSE Phenytoin Sodium (Dilantin) 200 mg PO BID [facility] Last Admin: 05/22/18 08:18 Dose: 200 mg Senna/Docusate Sodium (Winifred-Colace) 1 tab PO BID [facility] Last Admin: 05/22/18 08:18 Dose: 1 tab Sennosides (Senokot) 17.2 mg PO Q12H PRN PRN Reason: Moderate Constipation Sodium Chloride (Ns Flush) 2 ml IV.FLUSH BID [facility] Last Admin: 05/22/18 08:18 Dose: 2 ml Sodium Chloride (Ns Flush) 2 ml IV.FLUSH PRN PRN PRN Reason: FLUSH AFTER USING IV ACCESS Sodium Chloride (Ns Flush) 5 ml IV.FLUSH PRN PRN PRN Reason: flush each lumen during HD Ticagrelor (Brilinta) 90 mg PO BID [facility] Last Admin: 05/22/18 08:17 Dose: 90 mg Allergies Allergy/AdvReac Type Severity Reaction Status Date / Time *MDRO Multi-Drug Resistant AdvReac Intermediate Abdominal Uncoded 05/21/18 00:22 Organism Pain Home Medications Medication Instructions Recorded Confirmed Type aspirin 81 mg PO DAILY 02/20/18 05/21/18 History enalapril maleate 5 mg PO DAILY 02/20/18 05/21/18 History gabapentin 300 mg PO BID 02/20/18 05/21/18 History lisinopril 10 mg PO DAILY 02/20/18 05/21/18 History metoclopramide HCl 5 mg PO TID 02/20/18 05/21/18 History phenytoin sodium extended 200 mg PO BID 02/20/18 05/21/18 History [Phenytek] insulin detemir U-100 [Levemir 34 units SUB-Q DAILY 03/15/18 05/21/18 History U-100 Insulin] Physical Exam Vital Signs / I&O: Vital Signs 05/21/18 12:00 05/21/18 15:05 11/17/18 15:17 Temperature 100.8 F H 102.5 F H Pulse Rate 90 140 H Respiratory Rate 19 30 H Blood Pressure 162/80 H 200/80 H Pulse Oximetry 98 98 05/21/18 16:00 05/21/18 17:22 05/21/18 17:30 Temperature 104.4 F H Pulse Rate 104 H 78 75 Respiratory Rate 37 H 26 H 26 H Blood Pressure 211/82 H 152/59 H Pulse Oximetry 98 100 100 05/21/18 17:45 05/21/18 18:00 05/21/18 18:15 Temperature Pulse Rate 68 64 62 Respiratory Rate 25 H 22 23 Blood Pressure 132/56 L 102/51 L 116/55 L Pulse Oximetry 100 100 100 05/21/18 18:30 05/21/18 18:45 05/21/18 19:00 Temperature Pulse Rate 60 59 L 67 Respiratory Rate 21 28 H 18 Blood Pressure 112/53 L 108/52 L 111/54 L Pulse Oximetry 100 100 100 05/21/18 19:15 05/21/18 19:30 05/21/18 19:45 Temperature Pulse Rate 70 78 92 H Respiratory Rate 16 19 24 Blood Pressure 111/56 L 152/100 H 131/61 Pulse Oximetry 100 85 L 100 05/21/18 20:00 05/21/18 20:05 05/21/18 20:15 Temperature Pulse Rate 89 90 Respiratory Rate 17 18 Blood Pressure 129/60 145/64 H Pulse Oximetry 100 100 100 05/21/18 20:30 05/21/18 20:45 05/21/18 21:00 Temperature Pulse Rate 88 91 H 89 Respiratory Rate 17 18 18 Blood Pressure 123/50 L 140/65 154/65 H Pulse Oximetry 100 100 100 05/21/18 21:15 05/21/18 21:30 05/21/18 21:45 Temperature Pulse Rate 91 H 86 89 Respiratory Rate 19 15 17 Blood Pressure 169/69 H 146/61 H 144/65 H Pulse Oximetry 100 100 100 05/21/18 22:00 05/21/18 22:30 05/21/18 22:45 Temperature Pulse Rate 86 86 89 Respiratory Rate 16 20 20 Blood Pressure 172/68 H 143/63 H 164/67 H Pulse Oximetry 100 100 100 05/21/18 22:52 05/21/18 23:00 05/21/18 23:15 Temperature 100.5 F H Pulse Rate 92 H 91 H 89 Respiratory Rate 24 19 Blood Pressure 148/65 H 162/67 H Pulse Oximetry 100 100 05/21/18 23:30 05/21/18 23:45 05/22/18 00:00 Temperature 100.9 F H Pulse Rate 88 88 82 Respiratory Rate 21 22 22 Blood Pressure 161/67 H 160/69 H 161/68 H Pulse Oximetry 100 100 100 05/22/18 00:15 05/22/18 00:31 05/22/18 00:45 Temperature 100.1 F H Pulse Rate 83 80 76 Respiratory Rate 22 18 17 Blood Pressure 161/65 H 203/77 H 212/81 H Pulse Oximetry 100 100 100 05/22/18 00:55 05/22/18 01:00 05/22/18 01:15 Temperature Pulse Rate 78 80 90 Respiratory Rate 17 23 25 H Blood Pressure 167/71 H 149/64 H 147/66 H Pulse Oximetry 100 100 99 05/22/18 01:31 05/22/18 01:55 05/22/18 02:00 Temperature Pulse Rate 90 80 80 Respiratory Rate 22 17 17 Blood Pressure 169/70 H 170/70 H 172/66 H Pulse Oximetry 99 100 100 05/22/18 02:15 05/22/18 02:30 05/22/18 02:45 Temperature Pulse Rate 80 78 83 Respiratory Rate 18 14 23 Blood Pressure 171/73 H 156/68 H 170/70 H Pulse Oximetry 100 100 99 05/22/18 03:00 05/22/18 03:15 05/22/18 03:30 Temperature Pulse Rate 79 79 78 Respiratory Rate 16 15 15 Blood Pressure 177/72 H 179/77 H 174/74 H Pulse Oximetry 100 100 100 05/22/18 03:45 05/22/18 04:00 05/22/18 04:11 Temperature 97.6 F Pulse Rate 77 79 79 Respiratory Rate 14 19 23 Blood Pressure 182/72 H 174/70 H 150/67 H Pulse Oximetry 100 100 05/22/18 04:35 05/22/18 04:45 05/22/18 05:00 Temperature Pulse Rate 78 79 79 Respiratory Rate 18 17 20 Blood Pressure 184/74 H 179/76 H 173/67 H Pulse Oximetry 100 100 100 05/22/18 05:15 05/22/18 05:30 05/22/18 05:45 Temperature Pulse Rate 75 75 74 Respiratory Rate 11 L 13 13 Blood Pressure 178/72 H 177/66 H 162/69 H Pulse Oximetry 100 100 100 05/22/18 06:00 05/22/18 06:15 05/22/18 06:30 Temperature Pulse Rate 74 72 74 Respiratory Rate 14 14 13 Blood Pressure 136/63 132/60 140/63 Pulse Oximetry 100 100 100 05/22/18 06:45 05/22/18 06:55 05/22/18 07:00 Temperature Pulse Rate 75 74 75 Respiratory Rate 20 14 Blood Pressure 146/61 H 145/61 H Pulse Oximetry 100 100 05/22/18 07:15 05/22/18 07:30 05/22/18 07:45 Temperature Pulse Rate 76 75 76 Respiratory Rate 15 16 24 Blood Pressure 156/65 H 153/67 H 148/64 H Pulse Oximetry 99 100 99 05/22/18 08:00 05/22/18 08:15 05/22/18 08:30 Temperature 97.5 F L Pulse Rate 76 77 75 Respiratory Rate 21 14 15 Blood Pressure 145/60 H 153/63 H 143/63 H Pulse Oximetry 99 99 99 05/22/18 08:45 05/22/18 09:00 05/22/18 09:15 Temperature Pulse Rate 75 76 73 Respiratory Rate 13 8 L 13 Blood Pressure 144/60 H 142/61 H 135/63 Pulse Oximetry 100 100 99 05/22/18 10:00 Temperature Pulse Rate 64 Respiratory Rate Blood Pressure Pulse Oximetry Intake & Output 05/21/18 05/22/18 05/22/18 18:59 06:59 18:59 Intake Total 905 / 905 50 / 50 Output Total 3500 / 3500 Balance 905 / 905 -3450 / -3450 Weight 132.5 kg Intake: IV 785 / 785 50 / 50 Ofirmev Inj 1,000 mg In 100 ml 100 / 100 @ 300 mls/hr IV.SIG Q6H PRN Rx# :[id number] Calcium Gluconate Inj 1 GM In 110 / 110 D5W Inj 100 ML @ 110 mls/hr IV. SIG ONCE ONE Rx#:[id number] Zosyn 2.25 GM Premix 50 ML @ 50 / 50 50 / 50 100 mls/hr IV.SIG Q12H SKIP Rx#: [id number] Vancomycin Inj 2,500 MG In NS 525 / 525 Inj 500 ML @ 250 mls/hr IV.SIG WITH DIALYSIS ONE Rx#:[id number] Oral 120 / 120 0 / 0 Output: Hemodialysis Amount 3500 / 3500 Other: # Voids 0 Date of Last Bowel Movement 05/20/18 05/20/18 05/20/18 # Incontinent Bowel Movements 0 Neuro: somewhat blunted affect but no acute distress HEENT: Anicteric Neck: no JVD Heart: reg rate, rhythm Lungs: clear B Vascular: L UE without erythema. + thrill. nonpalpable pedal pulses and multiple toe ulcerations. Also has heel wound LEFT heel Laboratory Results - last 24 hr 05/21/18 05/21/18 05/21/18 09:50 09:50 09:51 WBC RBC Hgb Hct MCV MCH MCHC RDW Plt Count MPV Neut % (Auto) Lymph % (Auto) [place] % (Auto) Eos % (Auto) Baso % (Auto) Neut # (Auto) Lymph # (Auto) [place] # (Auto) Eos # (Auto) Baso # (Auto) WBC Differential Differential Comment Puncture Site Patient Temperature O2 Saturation ABG pH ABG pCO2 ABG pO2 ABG HCO3 ABG O2 Content ABG Base Excess ABG Methemoglobin [place] Test Hemoglobin Carboxyhemoglobin O2 Delivery Device Liter Flow Critical Value Sodium Potassium Chloride Carbon Dioxide Anion Gap BUN Creatinine Estimated GFR POC Glucose Random Glucose Lactic Acid Calcium Phosphorus Magnesium Total Bilirubin AST ALT Alkaline Phosphatase Ammonia Troponin I Less than 0.02 L Total Protein Albumin Lipase 99 TSH Urine Color Yellow Urine Clarity Hazy H Urine pH 5.0 Ur Specific [place] 1.016 Urine Protein 500 or greater Urine Glucose (UA) 50 Urine Ketones Negative Urine Occult Blood Small H Urine Nitrate Negative Urine Bilirubin Negative Urine Urobilinogen Less than 2 Ur Leukocyte Esterase Negative Urine RBC 2 Urine WBC 2 Amorphous Sediment Rare H Urine Bacteria Rare H Urine Mucus Few H Micro UA Comment Cath-culture ind Ur Microscopic Review Not Reportable Urine Culture Comments Cath-cult indicated Nasal Screen MRSA (PCR) Hepatitis A IgM Ab Hep Bs Antigen Hep B Core IgM Ab Hep C IgG Ab 05/21/18 05/21/18 05/21/18 12:07 14:51 15:21 WBC RBC Hgb Hct MCV MCH MCHC RDW Plt Count MPV Neut % (Auto) Lymph % (Auto) [place] % (Auto) Eos % (Auto) Baso % (Auto) Neut # (Auto) Lymph # (Auto) [place] # (Auto) Eos # (Auto) Baso # (Auto) WBC Differential Differential Comment Puncture Site Patient Temperature O2 Saturation ABG pH ABG pCO2 ABG pO2 ABG HCO3 ABG O2 Content ABG Base Excess ABG Methemoglobin [place] Test Hemoglobin Carboxyhemoglobin O2 Delivery Device Liter Flow Critical Value Sodium Potassium Chloride Carbon Dioxide Anion Gap BUN Creatinine Estimated GFR POC Glucose 133 H 206 H Random Glucose Lactic Acid Calcium Phosphorus Magnesium Total Bilirubin AST ALT Alkaline Phosphatase Ammonia Troponin I Less than 0.02 L Total Protein Albumin Lipase TSH Urine Color Urine Clarity Urine pH Ur Specific [place] Urine Protein Urine Glucose (UA) Urine Ketones Urine Occult Blood Urine Nitrate Urine Bilirubin Urine Urobilinogen Ur Leukocyte Esterase Urine RBC Urine WBC Amorphous Sediment Urine Bacteria Urine Mucus Micro UA Comment Ur Microscopic Review Urine Culture Comments Nasal Screen MRSA (PCR) Hepatitis A IgM Ab Hep Bs Antigen Hep B Core IgM Ab Hep C IgG Ab 05/21/18 05/21/18 05/21/18 15:40 15:41 15:41 WBC RBC Hgb Hct MCV MCH MCHC RDW Plt Count MPV Neut % (Auto) Lymph % (Auto) [place] % (Auto) Eos % (Auto) Baso % (Auto) Neut # (Auto) Lymph # (Auto) [place] # (Auto) Eos # (Auto) Baso # (Auto) WBC Differential Differential Comment Puncture Site Right radial Patient Temperature 98.6 O2 Saturation 91 ABG pH 7.44 H ABG pCO2 28 L ABG pO2 68 ABG HCO3 19 L ABG O2 Content 13.0 ABG Base Excess -4.7 L ABG Methemoglobin 1.3 [place] Test Present Hemoglobin 10.1 L Carboxyhemoglobin 0.3 O2 Delivery Device Nasal cannula Liter Flow 2.00 Critical Value No Sodium Potassium Chloride Carbon Dioxide Anion Gap BUN Creatinine Estimated GFR POC Glucose Random Glucose Lactic Acid Calcium Phosphorus Magnesium Total Bilirubin AST ALT Alkaline Phosphatase Ammonia 28 Troponin I Total Protein Albumin Lipase TSH Urine Color Urine Clarity Urine pH Ur Specific [place] Urine Protein Urine Glucose (UA) Urine Ketones Urine Occult Blood Urine Nitrate Urine Bilirubin Urine Urobilinogen Ur Leukocyte Esterase Urine RBC Urine WBC Amorphous Sediment Urine Bacteria Urine Mucus Micro UA Comment Ur Microscopic Review Urine Culture Comments Nasal Screen MRSA (PCR) Hepatitis A IgM Ab Nonreactive Hep Bs Antigen Nonreactive Hep B Core IgM Ab Nonreactive Hep C IgG Ab Nonreactive 05/21/18 05/21/18 05/21/18 15:41 15:41 15:41 WBC 8.3 RBC 2.98 L Hgb 10.0 L Hct 29.4 L MCV 98.5 MCH 33.4 MCHC 33.9 RDW 14.7 Plt Count 140 L MPV 7.4 Neut % (Auto) 91.1 H Lymph % (Auto) 1.7 L [place] % (Auto) 6.7 Eos % (Auto) 0.1 Baso % (Auto) 0.4 Neut # (Auto) 7.6 Lymph # (Auto) 0.1 L [place] # (Auto) 0.6 Eos # (Auto) 0.0 Baso # (Auto) 0.0 WBC Differential . Differential Comment Auto diff final Puncture Site Patient Temperature O2 Saturation ABG pH ABG pCO2 ABG pO2 ABG HCO3 ABG O2 Content ABG Base Excess ABG Methemoglobin [place] Test Hemoglobin Carboxyhemoglobin O2 Delivery Device Liter Flow Critical Value Sodium 130 L Potassium 7.2 H* D Chloride 98 Carbon Dioxide 21.0 Anion Gap 11 BUN 54 H Creatinine 5.15 H Estimated GFR 11 L POC Glucose Random Glucose 195 H Lactic Acid 1.6 Calcium 7.6 L Phosphorus 3.5 Magnesium 1.9 Total Bilirubin 0.7 AST 53 H ALT 44 Alkaline Phosphatase 174 H Ammonia Troponin I Total Protein 7.8 Albumin 3.1 L Lipase TSH 2.040 Urine Color Urine Clarity Urine pH Ur Specific [place] Urine Protein Urine Glucose (UA) Urine Ketones Urine Occult Blood Urine Nitrate Urine Bilirubin Urine Urobilinogen Ur Leukocyte Esterase Urine RBC Urine WBC Amorphous Sediment Urine Bacteria Urine Mucus Micro UA Comment Ur Microscopic Review Urine Culture Comments Nasal Screen MRSA (PCR) Hepatitis A IgM Ab Hep Bs Antigen Hep B Core IgM Ab Hep C IgG Ab 05/21/18 05/21/18 05/21/18 15:41 19:53 20:44 WBC RBC Hgb Hct MCV MCH MCHC RDW Plt Count MPV Neut % (Auto) Lymph % (Auto) [place] % (Auto) Eos % (Auto) Baso % (Auto) Neut # (Auto) Lymph # (Auto) [place] # (Auto) Eos # (Auto) Baso # (Auto) WBC Differential Differential Comment Puncture Site Patient Temperature O2 Saturation ABG pH ABG pCO2 ABG pO2 ABG HCO3 ABG O2 Content ABG Base Excess ABG Methemoglobin [place] Test Hemoglobin Carboxyhemoglobin O2 Delivery Device Liter Flow Critical Value Sodium Potassium Chloride Carbon Dioxide Anion Gap BUN Creatinine Estimated GFR POC Glucose 255 H Random Glucose Lactic Acid Calcium Phosphorus Magnesium Total Bilirubin AST ALT Alkaline Phosphatase Ammonia Troponin I 0.11 H Total Protein Albumin Lipase TSH Urine Color Urine Clarity Urine pH Ur Specific [place] Urine Protein Urine Glucose (UA) Urine Ketones Urine Occult Blood Urine Nitrate Urine Bilirubin Urine Urobilinogen Ur Leukocyte Esterase Urine RBC Urine WBC Amorphous Sediment Urine Bacteria Urine Mucus Micro UA Comment Ur Microscopic Review Urine Culture Comments Nasal Screen MRSA (PCR) Mrsa detected Hepatitis A IgM Ab Hep Bs Antigen Hep B Core IgM Ab Hep C IgG Ab 05/21/18 05/22/18 05/22/18 23:37 05:09 05:09 WBC 7.3 RBC 3.02 L Hgb 10.0 L Hct 29.4 L MCV 97.3 MCH 33.2 MCHC 34.1 RDW 14.7 Plt Count 134 L MPV 8.0 Neut % (Auto) 89.0 H Lymph % (Auto) 2.0 L [place] % (Auto) 8.9 H Eos % (Auto) 0.0 Baso % (Auto) 0.1 Neut # (Auto) 6.5 Lymph # (Auto) 0.1 L [place] # (Auto) 0.6 Eos # (Auto) 0.0 Baso # (Auto) 0.0 WBC Differential . Differential Comment Auto diff final Puncture Site Patient Temperature O2 Saturation ABG pH ABG pCO2 ABG pO2 ABG HCO3 ABG O2 Content ABG Base Excess ABG Methemoglobin [place] Test Hemoglobin Carboxyhemoglobin O2 Delivery Device Liter Flow Critical Value Sodium 135 L Potassium 4.5 D Chloride 97 L Carbon Dioxide 27.0 Anion Gap 11 BUN 45 H Creatinine 4.38 H Estimated GFR 14 L POC Glucose 186 H Random Glucose 157 H Lactic Acid Calcium 7.6 L Phosphorus 5.0 H D Magnesium 2.0 Total Bilirubin 0.8 AST 153 H ALT 82 H Alkaline Phosphatase 159 H Ammonia Troponin I Total Protein 7.5 Albumin 2.9 L Lipase TSH Urine Color Urine Clarity Urine pH Ur Specific [place] Urine Protein Urine Glucose (UA) Urine Ketones Urine Occult Blood Urine Nitrate Urine Bilirubin Urine Urobilinogen Ur Leukocyte Esterase Urine RBC Urine WBC Amorphous Sediment Urine Bacteria Urine Mucus Micro UA Comment Ur Microscopic Review Urine Culture Comments Nasal Screen MRSA (PCR) Hepatitis A IgM Ab Hep Bs Antigen Hep B Core IgM Ab Hep C IgG Ab 05/22/18 08:14 WBC RBC Hgb Hct MCV MCH MCHC RDW Plt Count MPV Neut % (Auto) Lymph % (Auto) [place] % (Auto) Eos % (Auto) Baso % (Auto) Neut # (Auto) Lymph # (Auto) [place] # (Auto) Eos # (Auto) Baso # (Auto) WBC Differential Differential Comment Puncture Site Patient Temperature O2 Saturation ABG pH ABG pCO2 ABG pO2 ABG HCO3 ABG O2 Content ABG Base Excess ABG Methemoglobin [place] Test Hemoglobin Carboxyhemoglobin O2 Delivery Device Liter Flow Critical Value Sodium Potassium Chloride Carbon Dioxide Anion Gap BUN Creatinine Estimated GFR POC Glucose 190 H Random Glucose Lactic Acid Calcium Phosphorus Magnesium Total Bilirubin AST ALT Alkaline Phosphatase Ammonia Troponin I Total Protein Albumin Lipase TSH Urine Color Urine Clarity Urine pH Ur Specific [place] Urine Protein Urine Glucose (UA) Urine Ketones Urine Occult Blood Urine Nitrate Urine Bilirubin Urine Urobilinogen Ur Leukocyte Esterase Urine RBC Urine WBC Amorphous Sediment Urine Bacteria Urine Mucus Micro UA Comment Ur Microscopic Review Urine Culture Comments Nasal Screen MRSA (PCR) Hepatitis A IgM Ab Hep Bs Antigen Hep B Core IgM Ab Hep C IgG Ab Microbiology 05/21/18 09:56 Aerobic Blood Culture - Preliminary Blood - Peripheral gram positive cocci Anaerobic Blood Culture - Preliminary gram positive cocci 05/21/18 09:56 Aerobic Blood Culture - Preliminary Blood - Peripheral gram positive cocci Anaerobic Blood Culture - Preliminary gram positive cocci Impressions Chest CTA 05/21/18 00:00 CONCLUSION: 1. No evidence of pulmonary embolism. 2. Minimal scattered ground-glass densities are noted consistent with minimal pulmonary vascular congestion versus atelectatic changes. 3. Coronary artery calcifications. 4. Tiny bilateral pleural effusions. 5. Splenomegaly. 6. Pneumobilia. 7. 13 mm right thyroid lobe nodule. 8. Degenerative changes throughout the thoracic spine. Chest X-Ray 05/21/18 00:28 CONCLUSION: Small lung volumes with an elevated right hemidiaphragm. Right subclavian bipolar pacer Venous Doppler Study 05/21/18 15:48 CONCLUSION: 1. No evidence of deep venous thrombosis. 2. A-V graft is patent and demonstrates flow. The amount of fluid surrounds the region of the distal graft Assessment and Plan - Assessment (1) Fever Code(s): R50.9 - Fever, unspecified Status: Acute - Plan 63 yo male with fever and now bacteremia. Has L UE AVG. Clinically, it looks ok and I am underwhelmed by the small fluid on the duplex. However given the bacteremia, this may need to be excised. He also has cellulitis around B toe and heel ulcers and I don't feel pedal pulses 1. ABIs - ordered 2. Rec podiatry consult 3. Broad antibiotics as you are doing 4. B UE vein survey for possible autogenous access if AVG needs excision 5. I'd like to talk with family to get a better sense of his functional status at home 6. Will follow Wesley Maynard MD FACS FSVS RPVI [employer] [facility] - Heart and Vascular Surgery at [facility] [phone] (1) Fever Qualifiers: Fever type: unspecified Qualified Code(s): R50.9 - Fever, unspecified
--- NOTE | 2018-05-22 11:39 | P.PNNP ---
Subjective Interval history: Patient is more alert, now with NGT, no SOB, not in distress. Physical Exam Vital signs: Vital Signs 05/21/18 12:00 05/21/18 15:05 05/21/18 15:17 Temperature 100.8 F H 102.5 F H Pulse Rate 90 140 H Respiratory Rate 19 30 H Blood Pressure 162/80 H 200/80 H Pulse Oximetry 98 98 05/21/18 16:00 05/21/18 17:22 05/21/18 17:30 Temperature 104.4 F H Pulse Rate 104 H 78 75 Respiratory Rate 37 H 26 H 26 H Blood Pressure 211/82 H 152/59 H Pulse Oximetry 98 100 100 05/21/18 17:45 05/21/18 18:00 05/21/18 18:15 Temperature Pulse Rate 68 64 62 Respiratory Rate 25 H 22 23 Blood Pressure 132/56 L 102/51 L 116/55 L Pulse Oximetry 100 100 100 05/21/18 18:30 05/21/18 18:45 05/21/18 19:00 Temperature Pulse Rate 60 59 L 67 Respiratory Rate 21 28 H 18 Blood Pressure 112/53 L 108/52 L 111/54 L Pulse Oximetry 100 100 100 05/21/18 19:15 18 19:30 05/21/18 19:45 Temperature Pulse Rate 70 78 92 H Respiratory Rate 16 19 24 Blood Pressure 111/56 L 152/100 H 131/61 Pulse Oximetry 100 85 L 100 05/21/18 20:00 05/21/18 20:05 05/21/18 20:15 Temperature Pulse Rate 89 90 Respiratory Rate 17 18 Blood Pressure 129/60 145/64 H Pulse Oximetry 100 100 100 05/21/18 20:30 05/21/18 20:45 05/21/18 21:00 Temperature Pulse Rate 88 91 H 89 Respiratory Rate 17 18 18 Blood Pressure 123/50 L 140/65 154/65 H Pulse Oximetry 100 100 100 05/21/18 21:15 05/21/18 21:30 05/21/18 21:45 Temperature Pulse Rate 91 H 86 89 Respiratory Rate 19 15 17 Blood Pressure 169/69 H 146/61 H 144/65 H Pulse Oximetry 100 100 100 05/21/18 22:00 05/21/18 22:30 05/21/18 22:45 Temperature Pulse Rate 86 86 89 Respiratory Rate 16 20 20 Blood Pressure 172/68 H 143/63 H 164/67 H Pulse Oximetry 100 100 100 05/21/18 22:52 05/21/18 23:00 05/21/18 23:15 Temperature 100.5 F H Pulse Rate 92 H 91 H 89 Respiratory Rate 24 19 Blood Pressure 148/65 H 162/67 H Pulse Oximetry 100 100 05/21/18 23:30 05/21/18 23:45 05/22/18 00:00 Temperature 100.9 F H Pulse Rate 88 88 82 Respiratory Rate 21 22 22 Blood Pressure 161/67 H 160/69 H 161/68 H Pulse Oximetry 100 100 100 05/22/18 00:15 05/22/18 00:31 05/22/18 00:45 Temperature 100.1 F H Pulse Rate 83 80 76 Respiratory Rate 22 18 17 Blood Pressure 161/65 H 203/77 H 212/81 H Pulse Oximetry 100 100 100 05/22/18 00:55 05/22/18 01:00 05/22/18 01:15 Temperature Pulse Rate 78 80 90 Respiratory Rate 17 23 25 H Blood Pressure 167/71 H 149/64 H 147/66 H Pulse Oximetry 100 100 99 05/22/18 01:31 05/22/18 01:55 05/22/18 02:00 Temperature Pulse Rate 90 80 80 Respiratory Rate 22 17 17 Blood Pressure 169/70 H 170/70 H 172/66 H Pulse Oximetry 99 100 100 05/22/18 02:15 05/22/18 02:30 05/22/18 02:45 Temperature Pulse Rate 80 78 83 Respiratory Rate 18 14 23 Blood Pressure 171/73 H 156/68 H 170/70 H Pulse Oximetry 100 100 99 05/22/18 03:00 05/22/18 03:15 05/22/18 03:30 Temperature Pulse Rate 79 79 78 Respiratory Rate 16 15 15 Blood Pressure 177/72 H 179/77 H 174/74 H Pulse Oximetry 100 100 100 05/22/18 03:45 05/22/18 04:00 05/22/18 04:11 Temperature 97.6 F Pulse Rate 77 79 79 Respiratory Rate 14 19 23 Blood Pressure 182/72 H 174/70 H 150/67 H Pulse Oximetry 100 100 05/22/18 04:35 05/22/18 04:45 05/22/18 05:00 Temperature Pulse Rate 78 79 79 Respiratory Rate 18 17 20 Blood Pressure 184/74 H 179/76 H 173/67 H Pulse Oximetry 100 100 100 05/22/18 05:15 05/22/18 05:30 05/22/18 05:45 Temperature Pulse Rate 75 75 74 Respiratory Rate 11 L 13 13 Blood Pressure 178/72 H 177/66 H 162/69 H Pulse Oximetry 100 100 100 05/22/18 06:00 05/22/18 06:15 05/22/18 06:30 Temperature Pulse Rate 74 72 74 Respiratory Rate 14 14 13 Blood Pressure 136/63 132/60 140/63 Pulse Oximetry 100 100 100 05/22/18 06:45 05/22/18 06:55 05/22/18 07:00 Temperature Pulse Rate 75 74 75 Respiratory Rate 20 14 Blood Pressure 146/61 H 145/61 H Pulse Oximetry 100 100 05/22/18 07:15 05/22/18 07:30 05/22/18 07:45 Temperature Pulse Rate 76 75 76 Respiratory Rate 15 16 24 Blood Pressure 156/65 H 153/67 H 148/64 H Pulse Oximetry 99 100 99 05/22/18 08:00 05/22/18 08:15 05/22/18 08:30 Temperature 97.5 F L Pulse Rate 76 77 75 Respiratory Rate 21 14 15 Blood Pressure 145/60 H 153/63 H 143/63 H Pulse Oximetry 99 99 99 05/22/18 08:45 05/22/18 09:00 05/22/18 09:15 Temperature Pulse Rate 75 76 73 Respiratory Rate 13 8 L 13 Blood Pressure 144/60 H 142/61 H 135/63 Pulse Oximetry 100 100 99 05/22/18 09:30 05/22/18 09:45 05/22/18 09:56 Temperature Pulse Rate 67 65 64 Respiratory Rate 10 L 20 15 Blood Pressure 134/60 129/60 125/57 L Pulse Oximetry 100 99 99 05/22/18 10:00 Temperature Pulse Rate 64 Respiratory Rate 13 Blood Pressure 123/56 L Pulse Oximetry 100 Intake & Output 05/21/18 05/22/18 05/22/18 18:59 06:59 18:59 Intake Total 905 / 905 50 / 50 Output Total 3500 / 3500 Balance 905 / 905 -3450 / -3450 Weight 132.5 kg Intake: IV 785 / 785 50 / 50 Ofirmev Inj 1,000 mg In 100 ml 100 / 100 @ 300 mls/hr IV.SIG Q6H PRN Rx# :[id number] Calcium Gluconate Inj 1 GM In 110 / 110 D5W Inj 100 ML @ 110 mls/hr IV. SIG ONCE ONE Rx#:[id number] Zosyn 2.25 GM Premix 50 ML @ 50 / 50 50 / 50 100 mls/hr IV.SIG Q12H SKIP Rx#: [id number] Vancomycin Inj 2,500 MG In NS 525 / 525 Inj 500 ML @ 250 mls/hr IV.SIG WITH DIALYSIS ONE Rx#:[id number] Oral 120 / 120 0 / 0 Output: Hemodialysis Amount 3500 / 3500 Other: # Voids 0 Date of Last Bowel Movement 05/20/18 05/20/18 05/20/18 # Incontinent Bowel Movements 0 Narrative: GEN: Chronically ill-appearing, awake now, not in distress. HEENT: NCAT, PERRL NECK: Trachea midline CARDIO: Rapid, irregular PULM: Diminished breath sounds at bases bilaterally ABD/GI: Obese, soft, non-tender in all quadrants EXT/MSK: AVF in LUE with palpable bruit, (+) thrill, surrounding erythema and warmth, blanchable, no blisters or crepitus, minimal tenderness. Multiple previous toe amputations. Multiple scaling crusting chronic-appearing sores to bilateral lower legs. Trace peripheral edema. SKIN: As noted above NEURO: Alert, oriented times 2, not in distress. PSYCH: No agitation Assessment and Plan - Assessment (1) ESRD (end stage renal disease) on dialysis Code(s): N18.6 - End stage renal disease; Z99.2 - Dependence on renal dialysis Status: Acute Plan: Patient with end stage renal disease on HD TTS. Now admitted with SOB and confusion. Chest CTA was negative for PE. Blood cultures done and started antibiotics. Has sepsis, blood culture growing Gram Positive. On Zosyn and Vanco. with HD. Follow the sensitivity. HD was done yesterday, has very high K. Now K is better, continue HD TTS and as needed. (2) Chest pain Code(s): R07.9 - Chest pain, unspecified Status: Acute Plan: Trending troponin Cardiology consulted. (3) DM (diabetes mellitus) Code(s): E11.9 - Type 2 diabetes mellitus without complications Status: Chronic Plan: Recommend to maintain blood sugars between 140 mg/dl to 180 mg/dl while hospitalized. (4) Anemia Code(s): D64.9 - Anemia, unspecified Status: Acute Plan: Epogen ordered with dialysis. (5) Sepsis Code(s): A41.9 - Sepsis, unspecified organism Status: Acute Plan: Blood cultures and UA ordered Antibiotics, renal dose as appropriate Will change Vancomycin to with dialysis.
--- NOTE | 2018-05-22 12:41 | ECHRPT ---
EXAM DATE: 05/22/2018 12:20 PM EST AGE/SEX: 63 years / Male INDICATIONS: toe ulcerations, claudication CLINICAL DATA: This is the patient's initial encounter. Patient reports that signs and symptoms have been present for 3 weeks and indicates a pain score of 1/10. MEDICAL/SURGICAL HISTORY: . AV fistula, coronary artery disease, diabetes, ESRD, amputation of great toe R, neuropathy, seizure . cholecystectomy, knee joint replacement, toe amputations COMPARISON: No prior exams available for comparison. TECHNIQUE: Four-cuff ankle and brachial pressures were obtained. Pulse cuff waveform tracings of the ankles were recorded, and ankle-brachial indices were calculated. PRESSURES (mmHg): Brachial (arm) : RIGHT: 131, LEFT: no bp Ankle : RIGHT: 73, LEFT: >230 CNO CAN : RIGHT: 0.56, LEFT: CNO TBI : RIGHT: N/A, LEFT: 0.37 FINDINGS: Pulsed-Cuff Waveform: There are good upstroke and a dicrotic downstroke of the tracings. Other: None. CONCLUSION: 1. There is significant decrease in the ankle-brachial index on the right suggesting severe peripher al vascular disease. The left ankle-brachial index could not be obtained, but the toe brachial index on the left is significantly decreased suggesting severe peripheral vascular disease on the left also . Electronically signed by: Wesley Harris MD 05/22/2018 12:39 PM EST
[2018-05-22] MEDS: Piperacil/Tazo 2.25 GM Premix 50 ML IV.SIG SCH (12:53)
--- NOTE | 2018-05-22 14:37 | CT ---
EXAM DATE: 05/22/2018 2:34 PM EST AGE/SEX: 63 years / Male INDICATIONS: Altered mental status. CLINICAL DATA: This is the patient's initial encounter. Patient reports that signs and symptoms have been present for 1 day and indicates a pain score of Nonresponsive. MEDICAL/SURGICAL HISTORY: Non-responsive. Non-responsive. RADIATION DOSE: 49.90 CTDI (mGy) [place] [facility] [place] [facility] [place]. . TECHNIQUE: CT of the head without contrast. Using automated exposure control and adjustment of the mA and/or kV according to patient size, radiation dose was kept as low as reasonably achievable to ob tain optimal diagnostic quality images. DICOM format image data is available electronically for revi ew and comparison. FINDINGS: Cerebrum: The ventricles are normal for age. No evidence of midline shift, mass lesion, hemorrhage or acute infarction. No extraaxial fluid collections are seen. Posterior Fossa: The cerebellum and brainstem are intact. The 4th ventricle is midline. The cerebe llopontine angle is unremarkable. Extracranial: The visualized portion of the orbits is intact. Skull: The calvaria is intact. No evidence of skull fracture. CONCLUSION: 1. Negative CT Head non contrast. . Electronically signed by: Wesley Harris MD 05/22/2018 2:36 PM EST
--- NOTE | 2018-05-22 14:58 | P.CONID ---
History of Present Illness Service: Infectious disease Consult date: 05/22/18 Requesting Physician: Mariah Villanueva Reason for Consult: Evaluate patient with bacteremia Primary Care Provider: No Primary Care Physician Chief Complaint: Chest Pain History of Present Illness: Patient seen and examined. Records reviewed. Patient is a 63-year-old male, brought into the hospital complaining of chest pain. Patient has known coronary artery disease. He had prior stenting of his coronaries I believe back in August of this year. In February he was readmitted and had an [place], and at that time he had bradycardia and he underwent placement of a pacemaker. Patient on this admission started having fevers and he was encephalopathic. There was some notation that he had some redness on his left upper extremity where he has his AV graft. Patient stated he had the AV graft put in about 6 months ago and the dialysis unit started using it about 4 months ago. Patient was also noted to have multiple wounds in the right foot as well as in the left foot. He stated he was hospitalized at [facility] last April and had surgery on his toes. He could not really tell me which of the toes he had surgery on. I spoke with microbiology in [facility], and there was a toe culture that grew Morganella morganii acne. It was resistant to ampicillin, Unasyn, cefazolin, and intermediate to gentamicin. Patient was apparently given some oral antibiotic but he could not remember what it was. He was last seen by his forestry engineer about a week ago and as far as he knows there was no problem with it. Patient states that he ambulates without any problem at home. Blood cultures done on this admission is now reported as growing possible MRSA. He had imaging study of the AV graft and there is a small fluid close to the AV graft. Patient currently is awake and alert and oriented. He is not short of breath, and currently no chest pain. Patient states he has neuropathy and does not really feel any pain in both feet. Infectious disease consultation has been requested to assist with evaluation and treatment of patient with positive blood culture. Review of Systems Constitutional: Reports chills, Reports fever(s), Denies headache(s) Eyes: Denies discharge, Denies dry eyes Ears, Nose, Mouth, and Throat: Denies difficulty swallowing, Denies ear pain, Denies nasal discharge, Denies neck pain, Denies sore throat Cardiovascular: Reports chest pain, Denies shortness of breath Respiratory: Denies chest congestion, Denies cough, Denies shortness of breath Gastrointestinal: Denies abdominal pain, Denies loose stools, Denies nausea, Denies pain with swallowing, Denies vomiting Genitourinary: Denies difficulty urinating, Denies painful urination Skin/Breast: Reports wounds Neurologic: Reports tingling/numbness/burning sensations Psychiatric: Reports confusion PMFSH - History History Provided By: Patient - Medical History Medical History: Medical History (Last Reviewed 05/22/18 @ 10:07 by Wesley Maynard MD) Neuropathy (Acute) AV fistula (Chronic) Coronary artery disease Diabetes End stage renal disease History of amputation of great toe of both feet Seizure - Surgical History Surgical History: Surgical History (Last Reviewed 05/22/18 @ 10:08 by Wesley Maynard MD) Knee joint replacement status (Acute) History of cholecystectomy - Tobacco History Second Hand Smoke Exposure: Yes Tobacco Use In Past 30 Days: No Smoking Status: Never smoker - Alcohol History How Often Do You Have a Drink Containing Alcohol: Never - Substance Use History Substance History: No History of Abuse - Travel History Recent Travel in the [place] Within the Last 8 Weeks: No Recent Travel Out of the Country Within the Last 8 Weeks: No - Immunization History Tetanus Immunization: <5 Years Medications and Allergies Active Medications: Active Medications Acetaminophen (Tylenol) 650 mg PO Q4H PRN PRN Reason: Temp > 100.4 Last Admin: 05/21/18 08:42 Dose: 650 mg Acetaminophen (Tylenol) 650 mg PO UNSCH PRN PRN Reason: SEE LABEL COMMENTS Hydrocodone Bitart/Acetaminophen ([place]illan 5/325) 1 tab PO Q4H PRN PRN Reason: PAIN SCALE 3 TO 5 Last Admin: 05/22/18 05:05 Dose: 1 tab Amlodipine Besylate (Norvasc) 5 mg PO DAILY [facility] Last Admin: 05/22/18 08:17 Dose: 5 mg Aspirin (Aspirin Chew) 81 mg PO DAILY [facility] Last Admin: 05/22/18 08:17 Dose: 81 mg Atorvastatin Calcium (Lipitor) 20 mg PO HS [facility] Last Admin: 05/21/18 21:28 Dose: 20 mg Bisacodyl (Dulcolax Supp) 10 mg RECTAL DAILY PRN PRN Reason: SEVERE CONSITIPATION Chlorhexidine Gluconate (Chlorhexidine 2% Cloth) 3 pack TOPICAL DAILY@0400 [facility] Stop: 05/27/18 03:59 Last Admin: 05/22/18 04:00 Dose: 3 pack Chlorhexidine Gluconate (Chlorhexidine 2% Cloth) 3 pack TOPICAL DAILY@0400 PRN PRN Reason: Extra cloth needed Stop: 05/27/18 03:59 Clonidine HCl (Catapres) 0.1 mg PO UNSCH PRN PRN Reason: SEE LABEL COMMENTS Dextrose (D50w Vial) 50 ml IV.PUSH UNSCH PRN PRN Reason: PER HYPOGLYCEMIA PROTOCOL Diphenhydramine HCl (Benadryl) 25 mg PO UNSCH PRN PRN Reason: SEE LABEL COMMENTS Epoetin Stefano (Epogen Inj) 6,000 unit IV.PUSH UNSCH PRN PRN Reason: SEE LABEL COMMENTS Last Admin: 05/21/18 20:35 Dose: 6,000 unit Gabapentin (Neurontin) 300 mg PO BID [facility] Last Admin: 05/22/18 08:17 Dose: 300 mg Gelatin (Gelfoam 12 Mm/7 Mm Topical) 1 foam TOPICAL PRN PRN PRN Reason: help stop bleeding from site Gentamicin Sulfate (Gentamicin Inj) 20 mg OTHER WITH DIALYSIS PRN PRN Reason: Dwell Gentamycin Lock Glucagon (Glucagon Inj) 1 mg OTHER PRN PRN PRN Reason: for Hypoglycemia Protocol Heparin Sodium (Porcine) (Heparin Inj) 8,000 units OTHER WITH DIALYSIS PRN PRN Reason: for machine prime Heparin Sodium (Porcine) (Heparin Inj) 1,000 units OTHER WITH DIALYSIS PRN PRN Reason: Dwell Heparin to Fill Catheter Hydralazine HCl (Apresoline Inj) 20 mg IV.PUSH Q4H PRN PRN Reason: SBP> OR = 180, DBP> OR = 100 Last Admin: 05/22/18 00:41 Dose: 20 mg Piperacillin/Tazobactam/Dextrose (Zosyn 2.25 Gm Premix) 50 mls @ 100 mls/hr IV.SIG Q12H [facility] Last Admin: 05/22/18 12:53 Dose: 100 mls/hr Albumin Human (Flexbumin 25% Inj) 100 mls @ 60 mls/hr IV.SIG WITH DIALYSIS PRN PRN Reason: hypotension / volume replace Sodium Chloride (Ns Inj) 1,000 mls @ 0 mls/hr OTHER .Q0M PRN PRN Reason: for prime and rinse back Sodium Chloride (Ns Inj) 1,000 mls @ 200 mls/hr OTHER .Q5H PRN PRN Reason: for dialyzer flush PRN Sodium Chloride (Ns Inj) 1,000 mls @ 0 mls/hr IV.CONT .Q0M PRN PRN Reason: hypotension / volume replace Acetaminophen (Ofirmev Inj) 1,000 mg in 100 mls @ 300 mls/hr IV.SIG Q6H PRN PRN Reason: FEVER Last Infusion: 05/21/18 17:00 Dose: Infused Vancomycin HCl 1,000 mg/ (Sodium Chloride) 250 mls @ 250 mls/hr IV.SIG WITH DIALYSIS SKIP Insulin Aspart (Novolog Insulin Correctional Sugar Inj) 0 unit SQ ACHS [facility]; Protocol Last Admin: 05/22/18 12:53 Dose: 3 unit Labetalol HCl (Trandate Inj) 10 mg IV.PUSH Q4H PRN PRN Reason: SBP>180, DBP>100, HR>65 Lactulose (Lactulose Liq) 30 ml PO DAILY PRN PRN Reason: SEVERE CONSITIPATION Mannitol (Mannitol Inj) 12.5 gm IV.PUSH UNSCH PRN PRN Reason: hypotension / volume replace Methocarbamol (Robaxin) 500 mg PO QID [facility] Last Admin: 05/22/18 12:53 Dose: 500 mg Metoprolol Tartrate (Lopressor) 25 mg PO BID [facility] Last Admin: 05/22/18 08:18 Dose: 25 mg Morphine Sulfate (Morphine Inj) 2 mg IV.PUSH Q3H PRN PRN Reason: PAIN 6-10 Last Admin: 05/22/18 10:19 Dose: 2 mg Nitroglycerin (Nitro-Bid 2% Oint) 1 inch TOPICAL Q6HR [facility] Last Admin: 05/22/18 12:53 Dose: 1 inch Nitroglycerin (Nitrostat Sl) 0.4 mg SL Q5M PRN PRN Reason: CHEST PAIN Ondansetron HCl (Zofran Inj) 4 mg IV.PUSH Q6H PRN PRN Reason: NAUSEA OR VOMITING Ondansetron HCl (Zofran Inj) 4 mg IV.PUSH UNSCH PRN PRN Reason: NAUSEA OR VOMITING Pharmacy Profile Note (Vancomycin Consult Pharmacy) 1 each OTHER UNSCH PRN PRN Reason: PHARMACY TO DOSE Phenytoin Sodium (Dilantin) 200 mg PO BID [facility] Last Admin: 05/22/18 08:18 Dose: 200 mg Senna/Docusate Sodium (Winifred-Colace) 1 tab PO BID [facility] Last Admin: 05/22/18 08:18 Dose: 1 tab Sennosides (Senokot) 17.2 mg PO Q12H PRN PRN Reason: Moderate Constipation Sodium Chloride (Ns Flush) 2 ml IV.FLUSH BID [facility] Last Admin: 05/22/18 08:18 Dose: 2 ml Sodium Chloride (Ns Flush) 2 ml IV.FLUSH PRN PRN PRN Reason: FLUSH AFTER USING IV ACCESS Sodium Chloride (Ns Flush) 5 ml IV.FLUSH PRN PRN PRN Reason: flush each lumen during HD Ticagrelor (Brilinta) 90 mg PO BID [facility] Last Admin: 05/22/18 08:17 Dose: 90 mg Allergies Allergy/AdvReac Type Severity Reaction Status Date / Time *MDRO Multi-Drug Resistant AdvReac Intermediate Abdominal Uncoded 05/21/18 00:22 Organism Pain Home Medications Medication Instructions Recorded Confirmed Type aspirin 81 mg PO DAILY 02/20/18 05/21/18 History enalapril maleate 5 mg PO DAILY 02/20/18 05/21/18 History gabapentin 300 mg PO BID 02/20/18 05/21/18 History lisinopril 10 mg PO DAILY 02/20/18 05/21/18 History metoclopramide HCl 5 mg PO TID 02/20/18 05/21/18 History phenytoin sodium extended 200 mg PO BID 02/20/18 05/21/18 History [Phenytek] insulin detemir U-100 [Levemir 34 units SUB-Q DAILY 03/15/18 05/21/18 History U-100 Insulin] Exam Vital signs: Vital Signs 05/21/18 15:05 05/21/18 15:17 05/21/18 16:00 Temperature 102.5 F H 104.4 F H Pulse Rate 140 H 104 H Respiratory Rate 30 H 37 H Blood Pressure 200/80 H 211/82 H Pulse Oximetry 98 98 05/21/18 17:22 05/21/18 17:30 05/21/18 17:45 Temperature Pulse Rate 78 75 68 Respiratory Rate 26 H 26 H 25 H Blood Pressure 152/59 H 132/56 L Pulse Oximetry 100 100 100 05/21/18 18:00 05/21/18 18:15 05/21/18 18:30 Temperature Pulse Rate 64 62 60 Respiratory Rate 22 23 21 Blood Pressure 102/51 L 116/55 L 112/53 L Pulse Oximetry 100 100 100 05/21/18 18:45 05/21/18 19:00 05/21/18 19:15 Temperature Pulse Rate 59 L 67 70 Respiratory Rate 28 H 18 16 Blood Pressure 108/52 L 111/54 L 111/56 L Pulse Oximetry 100 100 100 05/21/18 19:30 05/21/18 19:45 05/21/18 20:00 Temperature Pulse Rate 78 92 H 89 Respiratory Rate 19 24 17 Blood Pressure 152/100 H 131/61 129/60 Pulse Oximetry 85 L 100 100 05/21/18 20:05 05/21/18 20:15 05/21/18 20:30 Temperature Pulse Rate 90 88 Respiratory Rate 18 17 Blood Pressure 145/64 H 123/50 L Pulse Oximetry 100 100 100 05/21/18 20:45 05/21/18 21:00 05/21/18 21:15 Temperature Pulse Rate 91 H 89 91 H Respiratory Rate 18 18 19 Blood Pressure 140/65 154/65 H 169/69 H Pulse Oximetry 100 100 100 05/21/18 21:30 05/21/18 21:45 05/21/18 22:00 Temperature Pulse Rate 86 89 86 Respiratory Rate 15 17 16 Blood Pressure 146/61 H 144/65 H 172/68 H Pulse Oximetry 100 100 100 05/21/18 22:30 05/21/18 22:45 05/21/18 22:52 Temperature Pulse Rate 86 89 92 H Respiratory Rate 20 20 Blood Pressure 143/63 H 164/67 H Pulse Oximetry 100 100 05/21/18 23:00 05/21/18 23:15 05/21/18 23:30 Temperature 100.5 F H Pulse Rate 91 H 89 88 Respiratory Rate 24 19 21 Blood Pressure 148/65 H 162/67 H 161/67 H Pulse Oximetry 100 100 100 05/21/18 23:45 05/22/18 00:00 05/22/18 00:15 Temperature 100.9 F H Pulse Rate 88 82 83 Respiratory Rate 22 22 22 Blood Pressure 160/69 H 161/68 H 161/65 H Pulse Oximetry 100 100 100 05/22/18 00:31 05/22/18 00:45 05/22/18 00:55 Temperature 100.1 F H Pulse Rate 80 76 78 Respiratory Rate 18 17 17 Blood Pressure 203/77 H 212/81 H 167/71 H Pulse Oximetry 100 100 100 05/22/18 01:00 05/22/18 01:15 05/22/18 01:31 Temperature Pulse Rate 80 90 90 Respiratory Rate 23 25 H 22 Blood Pressure 149/64 H 147/66 H 169/70 H Pulse Oximetry 100 99 99 05/22/18 01:55 05/22/18 02:00 05/22/18 02:15 Temperature Pulse Rate 80 80 80 Respiratory Rate 17 17 18 Blood Pressure 170/70 H 172/66 H 171/73 H Pulse Oximetry 100 100 100 05/22/18 02:30 05/22/18 02:45 05/22/18 03:00 Temperature Pulse Rate 78 83 79 Respiratory Rate 14 23 16 Blood Pressure 156/68 H 170/70 H 177/72 H Pulse Oximetry 100 99 100 05/22/18 03:15 05/22/18 03:30 05/22/18 03:45 Temperature Pulse Rate 79 78 77 Respiratory Rate 15 15 14 Blood Pressure 179/77 H 174/74 H 182/72 H Pulse Oximetry 100 100 100 05/22/18 04:00 05/22/18 04:11 05/22/18 04:35 Temperature 97.6 F Pulse Rate 79 79 78 Respiratory Rate 19 23 18 Blood Pressure 174/70 H 150/67 H 184/74 H Pulse Oximetry 100 100 05/22/18 04:45 05/22/18 05:00 05/22/18 05:15 Temperature Pulse Rate 79 79 75 Respiratory Rate 17 20 11 L Blood Pressure 179/76 H 173/67 H 178/72 H Pulse Oximetry 100 100 100 05/22/18 05:30 05/22/18 05:45 05/22/18 06:00 Temperature Pulse Rate 75 74 74 Respiratory Rate 13 13 14 Blood Pressure 177/66 H 162/69 H 136/63 Pulse Oximetry 100 100 100 05/22/18 06:15 05/22/18 06:30 05/22/18 06:45 Temperature Pulse Rate 72 74 75 Respiratory Rate 14 13 20 Blood Pressure 132/60 140/63 146/61 H Pulse Oximetry 100 100 100 05/22/18 06:55 05/22/18 07:00 05/22/18 07:15 Temperature Pulse Rate 74 75 76 Respiratory Rate 14 15 Blood Pressure 145/61 H 156/65 H Pulse Oximetry 100 99 05/22/18 07:30 05/22/18 07:45 05/22/18 08:00 Temperature 97.5 F L Pulse Rate 75 76 76 Respiratory Rate 16 24 21 Blood Pressure 153/67 H 148/64 H 145/60 H Pulse Oximetry 100 99 99 05/22/18 08:15 05/22/18 08:30 05/22/18 08:45 Temperature Pulse Rate 77 75 75 Respiratory Rate 14 15 13 Blood Pressure 153/63 H 143/63 H 144/60 H Pulse Oximetry 99 99 100 05/22/18 09:00 05/22/18 09:15 05/22/18 09:30 Temperature Pulse Rate 76 73 67 Respiratory Rate 8 L 13 10 L Blood Pressure 142/61 H 135/63 134/60 Pulse Oximetry 100 99 100 05/22/18 09:45 05/22/18 09:56 05/22/18 10:00 Temperature Pulse Rate 65 64 64 Respiratory Rate 20 15 13 Blood Pressure 129/60 125/57 L 123/56 L Pulse Oximetry 99 99 100 05/22/18 10:30 05/22/18 11:00 05/22/18 11:37 Temperature Pulse Rate 62 64 69 Respiratory Rate 14 0 L 15 Blood Pressure 118/56 L 118/53 L Pulse Oximetry 100 98 98 05/22/18 12:00 05/22/18 12:01 05/22/18 12:30 Temperature 98.6 F Pulse Rate 70 70 69 Respiratory Rate 12 14 11 L Blood Pressure 131/55 L 131/55 L 127/57 L Pulse Oximetry 99 99 99 05/22/18 13:00 05/22/18 13:30 05/22/18 14:00 Temperature Pulse Rate 75 68 63 Respiratory Rate 12 21 25 H Blood Pressure 124/59 L 125/61 116/54 L Pulse Oximetry 100 96 100 Intake & Output 05/21/18 05/22/18 05/22/18 18:59 06:59 18:59 Intake Total 905 / 905 50 / 50 Output Total 3500 / 3500 Balance 905 / 905 -3450 / -3450 Weight 132.5 kg Intake: IV 785 / 785 50 / 50 Ofirmev Inj 1,000 mg In 100 ml 100 / 100 @ 300 mls/hr IV.SIG Q6H PRN Rx# :[id number] Calcium Gluconate Inj 1 GM In 110 / 110 D5W Inj 100 ML @ 110 mls/hr IV. SIG ONCE ONE Rx#:[id number] Zosyn 2.25 GM Premix 50 ML @ 50 / 50 50 / 50 100 mls/hr IV.SIG Q12H SKIP Rx#: [id number] Vancomycin Inj 2,500 MG In NS 525 / 525 Inj 500 ML @ 250 mls/hr IV.SIG WITH DIALYSIS ONE Rx#:[id number] Oral 120 / 120 0 / 0 Output: Hemodialysis Amount 3500 / 3500 Other: # Voids 0 Date of Last Bowel Movement 05/20/18 05/20/18 05/20/18 # Incontinent Bowel Movements 0 Narrative: Physical examination GENERAL: Patient is an obese, well-developed male, awake and alert, not in respiratory distress. Oriented to time, place and person SKIN: Cool and dry. No generalized rash, no ecchymoses and no evidence of embolic lesions. Has multiple dry wounds in both LE HEAD: Atraumatic. Normocephalic. No temporal wasting, or tenderness. EYES: [place] conjunctiva. No petechia or hemorrhage. Pupils equal, round and reactive to light. Extraocular movements full and intact. No scleral icterus. No injection or drainage. EARS, NOSE AND THROAT: Nose without bleeding or purulent nasal discharge. No sinus tenderness. Mucous membranes pink and moist. No oral lesions noted. No exudate. No oral thrush. NECK: Trachea midline. Supple and not tender, no meningeal signs CARDIOVASCULAR: Regular rate and rhythm. No murmurs, rubs or gallops heard. Pacer in R upper chest has well healed incision, not red, not swollen, not tender RESPIRATORY: Clear to auscultation. Breath sounds equal bilaterally. No rales , wheezing or rhonchi ABDOMEN: Soft, globular, non-tender, nondistended. Bowel sounds present and normoactive. No guarding. No rebound. EXTREMITIES: No clubbing, cyanosis. Skin tight in both LE. Has multiple dry wounds on both legs, no evidence of infection. L foot - S/P amp 2-4 toes, there is a dry ulcer plantar aspect over 2nd and 3rd MT, and there is a wet L heel ulcer. R foot he has dry wounds over the remaining 2nd and 3rd toes, ? partial amputation. it also looks like he had ray resection of 5th MT and there is a dry scab or ulcer present, some mild erythema on dorsum of that R foot. Healed partial amp of his R big toe. No calf tenderness. Tight skin on both feet, cool, no pulses appreciated. He has AVG in LUE and does not look infected on exam NEUROLOGICAL: Awake and alert. Cranial nerves grossly intact. Motor grossly within normal limits. PSYCHIATRIC: Normal affect, calm and cooperative. LINE: No evidence of infection Results - Labs CBC & Chem 7: 05/22/18 05:09 05/22/18 05:09 Labs: Laboratory Results - last 24 hr 05/21/18 05/21/18 05/21/18 14:51 15:21 15:40 WBC RBC Hgb Hct MCV MCH MCHC RDW Plt Count MPV Neut % (Auto) Lymph % (Auto) [place] % (Auto) Eos % (Auto) Baso % (Auto) Neut # (Auto) Lymph # (Auto) [place] # (Auto) Eos # (Auto) Baso # (Auto) WBC Differential Differential Comment Puncture Site Right radial Patient Temperature 98.6 O2 Saturation 91 ABG pH 7.44 H ABG pCO2 28 L ABG pO2 68 ABG HCO3 19 L ABG O2 Content 13.0 ABG Base Excess -4.7 L ABG Methemoglobin 1.3 Juancarlos Test Present Hemoglobin 10.1 L Carboxyhemoglobin 0.3 O2 Delivery Device Nasal cannula Liter Flow 2.00 Critical Value No Sodium Potassium Chloride Carbon Dioxide Anion Gap BUN Creatinine Estimated GFR POC Glucose 206 H Random Glucose Lactic Acid Calcium Phosphorus Magnesium Total Bilirubin AST ALT Alkaline Phosphatase Ammonia Troponin I Less than 0.02 L Total Protein Albumin TSH Nasal Screen MRSA (PCR) Hepatitis A IgM Ab Hep Bs Antigen Hep B Core IgM Ab Hep C IgG Ab 05/21/18 05/21/18 05/21/18 15:41 15:41 15:41 WBC 8.3 RBC 2.98 L Hgb 10.0 L Hct 29.4 L MCV 98.5 MCH 33.4 MCHC 33.9 RDW 14.7 Plt Count 140 L MPV 7.4 Neut % (Auto) 91.1 H Lymph % (Auto) 1.7 L [place] % (Auto) 6.7 Eos % (Auto) 0.1 Baso % (Auto) 0.4 Neut # (Auto) 7.6 Lymph # (Auto) 0.1 L [place] # (Auto) 0.6 Eos # (Auto) 0.0 Baso # (Auto) 0.0 WBC Differential . Differential Comment Auto diff final Puncture Site Patient Temperature O2 Saturation ABG pH ABG pCO2 ABG pO2 ABG HCO3 ABG O2 Content ABG Base Excess ABG Methemoglobin Juancarlos Test Hemoglobin Carboxyhemoglobin O2 Delivery Device Liter Flow Critical Value Sodium Potassium Chloride Carbon Dioxide Anion Gap BUN Creatinine Estimated GFR POC Glucose Random Glucose Lactic Acid Calcium Phosphorus Magnesium Total Bilirubin AST ALT Alkaline Phosphatase Ammonia 28 Troponin I Total Protein Albumin TSH Nasal Screen MRSA (PCR) Hepatitis A IgM Ab Nonreactive Hep Bs Antigen Nonreactive Hep B Core IgM Ab Nonreactive Hep C IgG Ab Nonreactive 05/21/18 05/21/18 05/21/18 15:41 15:41 15:41 WBC RBC Hgb Hct MCV MCH MCHC RDW Plt Count MPV Neut % (Auto) Lymph % (Auto) [place] % (Auto) Eos % (Auto) Baso % (Auto) Neut # (Auto) Lymph # (Auto) [place] # (Auto) Eos # (Auto) Baso # (Auto) WBC Differential Differential Comment Puncture Site Patient Temperature O2 Saturation ABG pH ABG pCO2 ABG pO2 ABG HCO3 ABG O2 Content ABG Base Excess ABG Methemoglobin Juancarlos Test Hemoglobin Carboxyhemoglobin O2 Delivery Device Liter Flow Critical Value Sodium 130 L Potassium 7.2 H* D Chloride 98 Carbon Dioxide 21.0 Anion Gap 11 BUN 54 H Creatinine 5.15 H Estimated GFR 11 L POC Glucose Random Glucose 195 H Lactic Acid 1.6 Calcium 7.6 L Phosphorus 3.5 Magnesium 1.9 Total Bilirubin 0.7 AST 53 H ALT 44 Alkaline Phosphatase 174 H Ammonia Troponin I Total Protein 7.8 Albumin 3.1 L TSH 2.040 Nasal Screen MRSA (PCR) Mrsa detected Hepatitis A IgM Ab Hep Bs Antigen Hep B Core IgM Ab Hep C IgG Ab 05/21/18 05/21/18 05/21/18 19:53 20:44 23:37 WBC RBC Hgb Hct MCV MCH MCHC RDW Plt Count MPV Neut % (Auto) Lymph % (Auto) [place] % (Auto) Eos % (Auto) Baso % (Auto) Neut # (Auto) Lymph # (Auto) [place] # (Auto) Eos # (Auto) Baso # (Auto) WBC Differential Differential Comment Puncture Site Patient Temperature O2 Saturation ABG pH ABG pCO2 ABG pO2 ABG HCO3 ABG O2 Content ABG Base Excess ABG Methemoglobin Juancarlos Test Hemoglobin Carboxyhemoglobin O2 Delivery Device Liter Flow Critical Value Sodium Potassium Chloride Carbon Dioxide Anion Gap BUN Creatinine Estimated GFR POC Glucose 255 H 186 H Random Glucose Lactic Acid Calcium Phosphorus Magnesium Total Bilirubin AST ALT Alkaline Phosphatase Ammonia Troponin I 0.11 H Total Protein Albumin TSH Nasal Screen MRSA (PCR) Hepatitis A IgM Ab Hep Bs Antigen Hep B Core IgM Ab Hep C IgG Ab 05/22/18 05/22/18 05/22/18 05:09 05:09 08:14 WBC 7.3 RBC 3.02 L Hgb 10.0 L Hct 29.4 L MCV 97.3 MCH 33.2 MCHC 34.1 RDW 14.7 Plt Count 134 L MPV 8.0 Neut % (Auto) 89.0 H Lymph % (Auto) 2.0 L [place] % (Auto) 8.9 H Eos % (Auto) 0.0 Baso % (Auto) 0.1 Neut # (Auto) 6.5 Lymph # (Auto) 0.1 L [place] # (Auto) 0.6 Eos # (Auto) 0.0 Baso # (Auto) 0.0 WBC Differential . Differential Comment Auto diff final Puncture Site Patient Temperature O2 Saturation ABG pH ABG pCO2 ABG pO2 ABG HCO3 ABG O2 Content ABG Base Excess ABG Methemoglobin Juancarlos Test Hemoglobin Carboxyhemoglobin O2 Delivery Device Liter Flow Critical Value Sodium 135 L Potassium 4.5 D Chloride 97 L Carbon Dioxide 27.0 Anion Gap 11 BUN 45 H Creatinine 4.38 H Estimated GFR 14 L POC Glucose 190 H Random Glucose 157 H Lactic Acid Calcium 7.6 L Phosphorus 5.0 H D Magnesium 2.0 Total Bilirubin 0.8 AST 153 H ALT 82 H Alkaline Phosphatase 159 H Ammonia Troponin I Total Protein 7.5 Albumin 2.9 L TSH Nasal Screen MRSA (PCR) Hepatitis A IgM Ab Hep Bs Antigen Hep B Core IgM Ab Hep C IgG Ab 05/22/18 12:52 WBC RBC Hgb Hct MCV MCH MCHC RDW Plt Count MPV Neut % (Auto) Lymph % (Auto) [place] % (Auto) Eos % (Auto) Baso % (Auto) Neut # (Auto) Lymph # (Auto) [place] # (Auto) Eos # (Auto) Baso # (Auto) WBC Differential Differential Comment Puncture Site Patient Temperature O2 Saturation ABG pH ABG pCO2 ABG pO2 ABG HCO3 ABG O2 Content ABG Base Excess ABG Methemoglobin Juancarlos Test Hemoglobin Carboxyhemoglobin O2 Delivery Device Liter Flow Critical Value Sodium Potassium Chloride Carbon Dioxide Anion Gap BUN Creatinine Estimated GFR POC Glucose 200 H Random Glucose Lactic Acid Calcium Phosphorus Magnesium Total Bilirubin AST ALT Alkaline Phosphatase Ammonia Troponin I Total Protein Albumin TSH Nasal Screen MRSA (PCR) Hepatitis A IgM Ab Hep Bs Antigen Hep B Core IgM Ab Hep C IgG Ab - Imaging Impressions Venous Doppler Study 05/21/18 15:48 CONCLUSION: 1. No evidence of deep venous thrombosis. 2. A-V graft is patent and demonstrates flow. The amount of fluid surrounds the region of the distal graft Extremity Arterial Study 05/22/18 00:00 CONCLUSION: 1. There is significant decrease in the ankle-brachial index on the right suggesting severe peripheral vascular disease. The left ankle-brachial index could not be obtained, but the toe brachial index on the left is significantly decreased suggesting severe peripheral vascular disease on the left also. Head CT 05/22/18 00:00 CONCLUSION: 1. Negative CT Head non contrast. . Assessment and Plan - Plan Impression MRSA sepsis, source? - has pacer recently placed, site looks ok - has LUE AVG, looks ok; not sure significance of fluid seen on doppler, ?early infection; per report had redness on admission - has multiple wounds both feet - ?endocarditis ESRD on HD Encephalopathy due to sepsis, better Prob with PVD Recommendation IV Vancomycin - gets with HD - check level in AM Repeat BC to document clearing Continue GNR coverage for the feet ulcers - get records from [facility] - podiatry evaluation PVD work-up Follow temps Echo Follow C/S May need ANANT Monitor progress I will follow along with you Thank you for this consultation
--- NOTE | 2018-05-22 15:25 | ECG ---
Date Performed: 05/21/2018 Time Performed: 15:11:00 PTAGE: 63 years EKG: Underlying Rhythm appears to be Atrial fibrillation With rapid ventricular response There i s wide complex tachycardia which has extreme right axis deviation with Right bundle branch block kennedy jake. This is most likely supraventricular due to the irregularity of the rate. Diffuse Nonspecific ST -T wave changes PREVIOUS TRACING :05/21/2018 @0921 Compared to previous tracing, there is a rhythm change from Sinus rhythm to probable atrial fibrillation and a wide QRS complex with right bundle. Right axis deviation is ne w. Clinical correlation is recommended DOCTOR: Crow Villar Interpretating Date/Time 05/22/2018 15:24:17
--- NOTE | 2018-05-22 15:27 | ECG ---
Date Performed: 05/21/2018 Time Performed: 15:37:06 PTAGE: 63 years EKG: Atrial fibrillation wit controlled ventricular response Intraventricular conduction disturb ance Nonspecific T-wave change Abnormal ECG PREVIOUS TRACING :05/21/2018 215.11 Compared to previous tracing,QRS complexes not as wide and the rate has slowed. ST-T changes somewhat improved. Clinical correlation is recommended DOCTOR: Crow Villar Interpretating Date/Time 05/22/2018 15:26:31
--- NOTE | 2018-05-22 18:40 | US ---
EXAM DATE: 05/22/2018 6:36 PM EST AGE/SEX: 63 years / Male INDICATIONS: Preop surgery. CLINICAL DATA: This is the patient's initial encounter. Patient reports that signs and symptoms have been present for 1 day and indicates a pain score of 0/10. MEDICAL/SURGICAL HISTORY: Diabetes. Renal disease, end stage. Coronary artery disease. Neuropa thy. Seizures. Cholecystectomy. AV fistula. Amputation of toe. Knee replacement. COMPARISON: No prior exams available for comparison. TECHNIQUE: Venous ultrasound of both lower extremities was performed from the inguinal ligament to t he proximal calf. Real-time, color Doppler and spectral tracing, compression and augmentation techni ques were used. FINDINGS: Right Leg: Normal compression of the deep venous system from the inguinal region to the proximal alejandrina f. No echogenic clot is seen. Normal response of the venous system to augmentation and respiration. Left Leg: Normal compression of the deep venous system from the inguinal region to the proximal calf . No echogenic clot is seen. Normal response of the venous system to augmentation and respiration. Other: None. CONCLUSION: 1. The study is negative for bilateral lower extremity deep venous thrombosis. Electronically signed by: Les Kimball MD 05/22/2018 6:39 PM EST
--- NOTE | 2018-05-22 18:42 | US ---
EXAM DATE: 05/22/2018 6:38 PM EST AGE/SEX: 63 years / Male INDICATIONS: Preop surgery. CLINICAL DATA: This is the patient's initial encounter. Patient reports that signs and symptoms have been present for 1 day and indicates a pain score of 0/10. MEDICAL/SURGICAL HISTORY: Diabetes. Renal disease, end stage. Coronary artery disease. Neuropa thy. Seizures. Cholecystectomy. AV fistula. Amputation of toe. Knee replacement. COMPARISON: [facility] – [place], [place] VENOUS DOPPLER LEG BI, 05/22/2018. . MEASUREMENTS: RIGHT THIGH: Proximal:__5 mm Mid:__ 3 mm Distal:__3 mm LEFT THIGH: Proximal:__8 mm Mid:__3 mm Distal:__3 mm RIGHT CALF: Proximal:__2 mm Mid:__Non-visualized Distal:__Non-visualized LEFT CALF: Proximal:__3 mm Mid:__3 mm Distal:__3 mm FINDINGS: The venous system of the lower extremities are patent by color Doppler imaging. Measurements of the leg veins (in mm) are listed above. CONCLUSION: 1. Saphenous vein mapping/measurements as described above. Electronically signed by: Wesley Harris MD 05/22/2018 6:41 PM EST
[2018-05-23] MEDS: Piperacil/Tazo 2.25 GM Premix 50 ML IV.SIG SCH ×3 (00:58→23:26)
[2018-05-23] MEDS: Morphine Sulfate Inj 2 MG/ML Vial IV.PUSH PRN ×5 (01:00→20:37)
[2018-05-23] MEDS: Chlorhexidine Gluconate 2% 1 Pack (2 Cloths) TOPICAL SCH (07:17)
--- NOTE | 2018-05-23 08:12 | P.PN ---
Subjective Interval history: Pt feels about the same, no specific sx but generally feeling poor Physical Exam Vital signs: Vital Signs 05/22/18 08:15 05/22/18 08:30 05/22/18 08:45 Temperature Pulse Rate 77 75 75 Respiratory Rate 14 15 13 Blood Pressure 153/63 H 143/63 H 144/60 H Pulse Oximetry 99 99 100 05/22/18 09:00 05/22/18 09:15 05/22/18 09:30 Temperature Pulse Rate 76 73 67 Respiratory Rate 8 L 13 10 L Blood Pressure 142/61 H 135/63 134/60 Pulse Oximetry 100 99 100 05/22/18 09:45 05/22/18 09:56 05/22/18 10:00 Temperature Pulse Rate 65 64 64 Respiratory Rate 20 15 13 Blood Pressure 129/60 125/57 L 123/56 L Pulse Oximetry 99 99 100 05/22/18 10:30 05/22/18 11:00 05/22/18 11:37 Temperature Pulse Rate 62 64 69 Respiratory Rate 14 0 L 15 Blood Pressure 118/56 L 118/53 L Pulse Oximetry 100 98 98 05/22/18 12:00 05/22/18 12:01 05/22/18 12:30 Temperature 98.6 F Pulse Rate 70 70 69 Respiratory Rate 12 14 11 L Blood Pressure 131/55 L 131/55 L 127/57 L Pulse Oximetry 99 99 99 05/22/18 13:00 05/22/18 13:30 05/22/18 14:00 Temperature Pulse Rate 75 68 63 Respiratory Rate 12 21 25 H Blood Pressure 124/59 L 125/61 116/54 L Pulse Oximetry 100 96 100 05/22/18 14:30 05/22/18 15:00 05/22/18 15:30 Temperature Pulse Rate 66 64 69 Respiratory Rate 23 12 11 L Blood Pressure 111/53 L 121/58 L 127/60 Pulse Oximetry 100 100 100 05/22/18 16:00 05/22/18 16:30 05/22/18 17:00 Temperature 98.4 F Pulse Rate 68 69 74 Respiratory Rate 12 15 12 Blood Pressure 133/62 127/58 L 125/60 Pulse Oximetry 100 100 100 05/22/18 17:30 05/22/18 18:00 05/22/18 18:30 Temperature Pulse Rate 72 65 85 Respiratory Rate 12 13 16 Blood Pressure 125/60 117/56 L 128/61 Pulse Oximetry 100 100 100 05/22/18 19:00 05/22/18 19:30 05/22/18 20:00 Temperature Pulse Rate 81 78 79 Respiratory Rate 21 23 21 Blood Pressure 142/63 H 140/65 142/61 H Pulse Oximetry 100 100 100 05/22/18 20:30 05/22/18 21:00 05/22/18 21:30 Temperature Pulse Rate 79 80 80 Respiratory Rate 16 14 14 Blood Pressure 142/63 H 152/69 H 142/64 H Pulse Oximetry 100 97 96 05/22/18 22:00 05/22/18 22:30 05/22/18 23:00 Temperature Pulse Rate 79 79 71 Respiratory Rate 15 24 23 Blood Pressure 137/59 L 133/59 L 127/58 L Pulse Oximetry 100 100 99 05/22/18 23:30 05/23/18 00:00 05/23/18 00:30 Temperature Pulse Rate 75 77 77 Respiratory Rate 25 H 24 14 Blood Pressure 121/56 L 122/56 L 123/59 L Pulse Oximetry 99 99 99 05/23/18 01:00 05/23/18 01:30 05/23/18 02:00 Temperature Pulse Rate 79 78 77 Respiratory Rate 15 14 12 Blood Pressure 122/59 L 132/62 135/60 Pulse Oximetry 99 100 100 05/23/18 02:30 05/23/18 03:00 05/23/18 03:30 Temperature Pulse Rate 75 75 75 Respiratory Rate 14 16 10 L Blood Pressure 129/58 L 120/56 L 119/55 L Pulse Oximetry 100 100 100 05/23/18 04:00 05/23/18 04:30 05/23/18 05:00 Temperature Pulse Rate 75 77 75 Respiratory Rate 9 L 13 13 Blood Pressure 122/56 L 139/62 125/56 L Pulse Oximetry 98 100 99 05/23/18 05:30 05/23/18 06:00 05/23/18 06:15 Temperature Pulse Rate 75 76 79 Respiratory Rate 15 13 19 Blood Pressure 112/54 L 124/52 L 117/56 L Pulse Oximetry 99 05/23/18 06:30 05/23/18 07:00 Temperature Pulse Rate 78 78 Respiratory Rate 17 11 L Blood Pressure 132/56 L 119/53 L Pulse Oximetry Intake & Output 05/22/18 05/23/18 05/23/18 18:59 06:59 18:59 Intake Total 50 / 50 50 / 50 Balance 50 / 50 50 / 50 Weight 134.5 kg Intake: IV 50 / 50 50 / 50 Zosyn 2.25 GM Premix 50 ML @ 50 / 50 50 / 50 100 mls/hr IV.SIG Q12H [facility] Rx#: [id number] Other: Date of Last Bowel Movement 05/20/18 05/20/18 - Constitutional no acute distress - Routine HEENT Exam Head: Present: normocephalic Eye: Present: EOMI ENT: Present: mucous membranes moist - Routine Cardiovascular Exam Present: RRR. Absent: murmur - Routine Extremities Exam Absent: edema Results - Labs CBC & Chem 7: 05/22/18 05:09 05/22/18 05:09 Laboratory Results - last 24 hr 05/22/18 05/22/18 05/22/18 08:14 12:52 17:14 POC Glucose 190 H 200 H 201 H 05/22/18 22:12 POC Glucose 212 H Microbiology 05/21/18 09:56 Blood - Peripheral Aerobic Blood Culture - Preliminary S. aureus MRSA 05/21/18 09:56 Blood - Peripheral Anaerobic Blood Culture - Preliminary gram positive cocci 05/21/18 09:51 Catheterized Urine Urine Culture - Preliminary No growth in 24 hours 05/22/18 09:50 Nasal Wash Influenza Types A,B Antigen - Final Negative for FLU A and B antigen Infection due to influenza A or B cannot be ruled out since the antigen present in the sample may be below the detection limit of the test. 05/21/18 09:56 Blood - Peripheral Aerobic Blood Culture - Preliminary gram positive cocci 05/21/18 09:56 Blood - Peripheral Anaerobic Blood Culture - Preliminary gram positive cocci - Imaging Impressions Extremity Arterial Study 05/22/18 00:00 CONCLUSION: 1. There is significant decrease in the ankle-brachial index on the right suggesting severe peripheral vascular disease. The left ankle-brachial index could not be obtained, but the toe brachial index on the left is significantly decreased suggesting severe peripheral vascular disease on the left also. Head CT 05/22/18 00:00 CONCLUSION: 1. Negative CT Head non contrast. . Lower Extremity Ultrasound 05/22/18 00:00 CONCLUSION: 1. Saphenous vein mapping/measurements as described above. Venous Doppler Study 05/22/18 00:00 CONCLUSION: 1. The study is negative for bilateral lower extremity deep venous thrombosis. Assessment and Plan - Assessment (1) Fever Code(s): R50.9 - Fever, unspecified Status: Acute - Attending Attestation atypical chest pain; seems unlikely to be cardiac, minimal trop elev likely due to sepsis/CKD, medical mgt. MRSA bacteremia; appreciate ID imput, TTE ordered, if no source found could consider ANANT (1) Fever Qualifiers: Fever type: unspecified Qualified Code(s): R50.9 - Fever, unspecified
[2018-05-23] MEDS: Phenytoin Sodium 100 MG Capsule PO SCH ×2 (09:16→20:35)
[2018-05-23] MEDS: Methocarbamol 500 MG Tablet PO SCH ×4 (09:16→20:34)
[2018-05-23] MEDS: Senna/Docusate Sodium 8.6/50 MG Tablet PO SCH ×2 (09:16→20:35)
[2018-05-23] MEDS: Gabapentin 300 MG Capsule PO SCH ×2 (09:16→20:35)
[2018-05-23] MEDS: Metoprolol Tartrate 25 MG Tablet PO SCH ×2 (09:16→20:34)
[2018-05-23] MEDS: amLODIPine 5 MG Tablet PO SCH (09:17)
[2018-05-23] MEDS: Sodium Chloride 0.9% 2 ML Flush BID IV.FLUSH SCH ×2 (09:18→20:54)
--- NOTE | 2018-05-23 09:47 | P.PNNP ---
Subjective Interval history: Low grade temperature last night. Reports that he does not feel well. Denies shortness of breath, nausea, or vomiting. <Christa Velasquez - Last Filed: 05/23/18 14:24> Physical Exam Vital signs: Vital Signs 05/22/18 09:56 05/22/18 10:00 05/22/18 10:30 Temperature Pulse Rate 64 64 62 Respiratory Rate 15 13 14 Blood Pressure 125/57 L 123/56 L 118/56 L Pulse Oximetry 99 100 100 05/22/18 11:00 05/22/18 11:37 05/22/18 12:00 Temperature 98.6 F Pulse Rate 64 69 70 Respiratory Rate 0 L 15 12 Blood Pressure 118/53 L 131/55 L Pulse Oximetry 98 98 99 05/22/18 12:01 05/22/18 12:30 05/22/18 13:00 Temperature Pulse Rate 70 69 75 Respiratory Rate 14 11 L 12 Blood Pressure 131/55 L 127/57 L 124/59 L Pulse Oximetry 99 99 100 05/22/18 13:30 05/22/18 14:00 05/22/18 14:30 Temperature Pulse Rate 68 63 66 Respiratory Rate 21 25 H 23 Blood Pressure 125/61 116/54 L 111/53 L Pulse Oximetry 96 100 100 05/22/18 15:00 05/22/18 15:30 05/22/18 16:00 Temperature 98.4 F Pulse Rate 64 69 68 Respiratory Rate 12 11 L 12 Blood Pressure 121/58 L 127/60 133/62 Pulse Oximetry 100 100 100 05/22/18 16:30 05/22/18 17:00 05/22/18 17:30 Temperature Pulse Rate 69 74 72 Respiratory Rate 15 12 12 Blood Pressure 127/58 L 125/60 125/60 Pulse Oximetry 100 100 100 05/22/18 18:00 05/22/18 18:30 05/22/18 19:00 Temperature Pulse Rate 65 85 81 Respiratory Rate 13 16 21 Blood Pressure 117/56 L 128/61 142/63 H Pulse Oximetry 100 100 100 05/22/18 19:30 05/22/18 20:00 05/22/18 20:30 Temperature Pulse Rate 78 79 79 Respiratory Rate 23 21 16 Blood Pressure 140/65 142/61 H 142/63 H Pulse Oximetry 100 100 100 05/22/18 21:00 05/22/18 21:30 05/22/18 22:00 Temperature Pulse Rate 80 80 79 Respiratory Rate 14 14 15 Blood Pressure 152/69 H 142/64 H 137/59 L Pulse Oximetry 97 96 100 05/22/18 22:30 05/22/18 23:00 05/22/18 23:30 Temperature Pulse Rate 79 71 75 Respiratory Rate 24 23 25 H Blood Pressure 133/59 L 127/58 L 121/56 L Pulse Oximetry 100 99 99 05/23/18 00:00 05/23/18 00:30 05/23/18 01:00 Temperature Pulse Rate 77 77 79 Respiratory Rate 24 14 15 Blood Pressure 122/56 L 123/59 L 122/59 L Pulse Oximetry 99 99 99 05/23/18 01:30 05/23/18 02:00 05/23/18 02:30 Temperature Pulse Rate 78 77 75 Respiratory Rate 14 12 14 Blood Pressure 132/62 135/60 129/58 L Pulse Oximetry 100 100 100 05/23/18 03:00 05/23/18 03:30 05/23/18 04:00 Temperature Pulse Rate 75 75 75 Respiratory Rate 16 10 L 9 L Blood Pressure 120/56 L 119/55 L 122/56 L Pulse Oximetry 100 100 98 05/23/18 04:30 05/23/18 05:00 05/23/18 05:30 Temperature Pulse Rate 77 75 75 Respiratory Rate 13 13 15 Blood Pressure 139/62 125/56 L 112/54 L Pulse Oximetry 100 99 99 05/23/18 06:00 05/23/18 06:15 05/23/18 06:30 Temperature Pulse Rate 76 79 78 Respiratory Rate 13 19 17 Blood Pressure 124/52 L 117/56 L 132/56 L Pulse Oximetry 05/23/18 07:00 05/23/18 08:00 Temperature Pulse Rate 78 Respiratory Rate 11 L Blood Pressure 119/53 L Pulse Oximetry 100 Intake & Output 05/22/18 05/23/18 05/23/18 18:59 06:59 18:59 Intake Total 50 / 50 50 / 50 Balance 50 / 50 50 / 50 Weight 134.5 kg Intake: IV 50 / 50 50 / 50 Zosyn 2.25 GM Premix 50 ML @ 50 / 50 50 / 50 100 mls/hr IV.SIG Q12H [facility] Rx#: [id number] Other: Date of Last Bowel Movement 05/20/18 05/20/18 Narrative: GEN: Chronically ill-appearing, not in distress. CARDIO: Rapid, irregular PULM: Diminished breath sounds at bases bilaterally ABD/GI: Obese, soft, non-tender in all quadrants EXT/MSK: AVF in LUE with palpable bruit, (+) thrill, surrounding erythema and warmth, blanchable, no blisters or crepitus, minimal tenderness. Multiple previous toe amputations. Multiple scaling crusting chronic-appearing sores to bilateral lower legs. Trace peripheral edema. NEURO: Alert, oriented times 2, not in distress. <Christa Velasquez - Last Filed: 05/23/18 14:24> Vital signs: Vital Signs 05/23/18 22:00 05/23/18 23:00 05/23/18 23:30 Temperature 99 F Pulse Rate 87 81 80 Respiratory Rate 14 9 L 13 Blood Pressure 160/59 H 144/63 H 154/63 H Pulse Oximetry 97 98 98 05/24/18 00:00 05/24/18 00:30 05/24/18 01:00 Temperature 99.0 F Pulse Rate 80 79 77 Respiratory Rate 11 L 17 16 Blood Pressure 140/63 147/63 H 142/60 H Pulse Oximetry 99 99 99 05/24/18 01:30 05/24/18 02:00 05/24/18 02:30 Temperature 99.0 F Pulse Rate 88 77 77 Respiratory Rate 19 12 20 Blood Pressure 153/67 H 151/65 H 151/66 H Pulse Oximetry 98 98 98 05/24/18 03:00 05/24/18 03:30 05/24/18 04:00 Temperature 99.0 F Pulse Rate 77 77 78 Respiratory Rate 14 12 13 Blood Pressure 153/68 H 159/67 H 152/67 H Pulse Oximetry 98 98 98 05/24/18 04:30 05/24/18 05:00 05/24/18 06:00 Temperature 99.0 F Pulse Rate 78 78 78 Respiratory Rate 13 22 16 Blood Pressure 149/66 H 153/67 H 147/63 H Pulse Oximetry 98 98 92 L 05/24/18 06:30 05/24/18 07:00 05/24/18 07:30 Temperature Pulse Rate 78 77 78 Respiratory Rate 14 14 15 Blood Pressure 152/65 H 144/63 H 144/63 H Pulse Oximetry 93 L 94 L 100 05/24/18 08:00 05/24/18 08:30 05/24/18 08:45 Temperature 98.9 F Pulse Rate 75 74 77 Respiratory Rate 18 12 17 Blood Pressure 139/58 L 139/61 145/64 H Pulse Oximetry 99 100 100 05/24/18 09:00 05/24/18 09:15 05/24/18 09:30 Temperature Pulse Rate 75 75 74 Respiratory Rate 14 12 12 Blood Pressure 147/61 H 139/60 161/58 H Pulse Oximetry 100 100 100 05/24/18 09:36 05/24/18 09:46 05/24/18 10:00 Temperature Pulse Rate 75 77 Respiratory Rate 14 13 Blood Pressure 151/62 H 159/65 H Pulse Oximetry 99 100 100 05/24/18 10:15 05/24/18 10:30 05/24/18 10:45 Temperature Pulse Rate 77 75 75 Respiratory Rate 12 13 13 Blood Pressure 156/63 H 150/65 H 142/60 H Pulse Oximetry 100 100 100 05/24/18 11:00 05/24/18 11:15 05/24/18 11:30 Temperature 98.7 F Pulse Rate 78 75 74 Respiratory Rate 12 12 13 Blood Pressure 153/58 H 151/66 H 162/70 H Pulse Oximetry 100 100 99 05/24/18 12:00 05/24/18 13:00 05/24/18 14:00 Temperature Pulse Rate 77 75 77 Respiratory Rate 14 13 Blood Pressure 151/65 H 156/65 H Pulse Oximetry 99 99 05/24/18 15:28 05/24/18 15:29 05/24/18 15:30 Temperature Pulse Rate 77 76 75 Respiratory Rate 6 L 7 L Blood Pressure 157/64 H 162/67 H Pulse Oximetry 100 100 100 05/24/18 15:45 05/24/18 16:00 05/24/18 16:30 Temperature Pulse Rate 74 74 71 Respiratory Rate 13 16 10 L Blood Pressure 155/61 H 157/63 H 150/62 H Pulse Oximetry 100 98 100 05/24/18 17:00 05/24/18 17:01 05/24/18 17:30 Temperature Pulse Rate 71 72 70 Respiratory Rate 15 16 14 Blood Pressure 154/64 H 143/63 H Pulse Oximetry 99 100 100 05/24/18 18:00 05/24/18 18:01 Temperature Pulse Rate 71 72 Respiratory Rate 17 16 Blood Pressure 178/76 H Pulse Oximetry 100 99 Intake & Output 05/24/18 05/24/18 05/25/18 06:59 18:59 06:59 Intake Total 200 / 200 580 / 580 Output Total 0 / 0 3000 / 3000 Balance 200 / 200 -2420 / -2420 Weight 134 kg Intake: IV 100 / 100 480 / 480 Calcium Gluconate Inj 2 GM In 120 / 120 D5W Inj 100 ML @ 120 mls/hr IV. SIG ONCE ONE Rx#:[id number] Zosyn 2.25 GM Premix 50 ML @ 100 / 100 100 mls/hr IV.SIG Q12H [facility] Rx#: [id number] Oral 100 / 100 100 / 100 Output: Urine 0 / 0 0 / 0 Stool 0 / 0 0 / 0 Urine/Stool Mix 0 / 0 0 / 0 Hemodialysis Amount 3000 / 3000 Other: Date of Last Bowel Movement 05/20/18 05/24/18 # Bowel Movements 0 0 # Incontinent Bowel Movements 0 0 <Moni Alvarado - Last Filed: 05/24/18 21:34> Assessment and Plan - Assessment (1) ESRD (end stage renal disease) on dialysis Code(s): N18.6 - End stage renal disease; Z99.2 - Dependence on renal dialysis Status: Acute Plan: Patient with end stage renal disease on HD TTS. Epogen with dialysis. Hemodialysis planned for tomorrow. Pt w/ a Left Upper Extremity ArterioVenous Graft given the bacteremia, this may need to be excised (2) DM (diabetes mellitus) Code(s): E11.9 - Type 2 diabetes mellitus without complications Status: Chronic Plan: Recommend to maintain blood sugars between 140 mg/dl to 180 mg/dl while hospitalized. (3) Anemia Code(s): D64.9 - Anemia, unspecified Status: Acute Plan: Epogen ordered with dialysis. (4) Sepsis Code(s): A41.9 - Sepsis, unspecified organism Status: Acute Plan: Blood cultures positive for MRSA. Antibiotics per ID recommendations. <Christa Velasquez - Last Filed: 05/23/18 14:24> - Assessment (1) ESRD (end stage renal disease) on dialysis Code(s): N18.6 - End stage renal disease; Z99.2 - Dependence on renal dialysis Status: Acute Plan: Patient seen and examined, agree with above. Has MRSA Bacteremia, most likely from feet infection. Continue antibiotics. Encephalopathy is much better. HD will be in AM. (2) DM (diabetes mellitus) Code(s): E11.9 - Type 2 diabetes mellitus without complications Status: Chronic (3) Anemia Code(s): D64.9 - Anemia, unspecified Status: Acute (4) Sepsis Code(s): A41.9 - Sepsis, unspecified organism Status: Acute <Moni Alvarado - Last Filed: 05/24/18 21:34>
--- NOTE | 2018-05-23 09:52 | US ---
EXAM DATE: 05/23/2018 9:49 AM EST AGE/SEX: 63 years / Male INDICATIONS: AVF planning. CLINICAL DATA: This is the patient's subsequent encounter. Patient reports that signs and symptoms h ave been present for 1 day and indicates a pain score of 6/10. MEDICAL/SURGICAL HISTORY: . Diabetes. Seizures. End stage renal disease. Neuropathy. . AV fis aleksey. CAD. Cholecystectomy. Bilateral knee joint replacements. [place] [facility] [place]. . FINDINGS: Right Upper Extremity: The vessels are compressible and augmentation response is documented. No fill ing defects are seen. The flow is phasic with respiration. Left Upper Extremity: The vessels are compressible and augmentation response is documented. No filli ng defects are seen. The flow is phasic with respiration. Other: None. CONCLUSION: No evidence of deep venous thrombosis. Electronically signed by: Eugene Hernandez MD 05/23/2018 9:51 AM EST
--- NOTE | 2018-05-23 10:01 | P.PNCC ---
Subjective Subjective Remarks/Hospital Course: 63yM transferred to [facility] from [facility] service for sepsis. The patient presented to the ED via EMS yesterday for chest pain which he described as intermittent "discomfort", radiating to his left arm, similar to anginal-type pain he had in the past. The patient was admitted to [facility] service overnight for further evaluation of his chest pain, has had negative trop x 3, but again reported chest pain this morning around 8 AM. He had a CTA chest which was negative for PE. Throughout the course of the day, he has been noted to be confused, febrile to 103F, and developed redness and warmth to his left arm overlying the AVF. He is scheduled for HD today. On arrival to [facility], the patient was sleepy but arousable to loud voice/ tactile stimuli, is unable to provide any meaningful contribution to HPI during my exam. The patient was last admitted in February for chest pain and underwent PCI with stent to proximal obtuse marginal (maintained on chronic Brillinta/ aspirin) as well as dual chamber right-sided PPM for symptomatic bradycardia. [employer] Feeder is Dr. Rizo. He additionally has a PMH of ESRD on HD , last dialyzed 2 days ago, receives HD via LUE AV graft. 05/22: Patient dialyzed yesterday evening for potassium of 7.2, 3500 cc removed. Fever curve improved overnight. US duplex of LUE shows small fluid collections around distal end of graft. Aerobic and anaerobic blood cultures positive x 2 for GPCs in pairs and clusters. Mental status is much improved this morning as compared to yesterday. 05/23: No overnight events. Patient says "I just don't feel well". MRSA growing in blood cultures. No encephalopathy since admission. Objective Vital Signs / I&O: Vital Signs 05/22/18 10:00 05/22/18 10:30 05/22/18 11:00 Temperature Pulse Rate 64 62 64 Respiratory Rate 13 14 0 L Blood Pressure 123/56 L 118/56 L Pulse Oximetry 100 100 98 05/22/18 11:37 05/22/18 12:00 05/22/18 12:01 Temperature 98.6 F Pulse Rate 69 70 70 Respiratory Rate 15 12 14 Blood Pressure 118/53 L 131/55 L 131/55 L Pulse Oximetry 98 99 99 05/22/18 12:30 05/22/18 13:00 05/22/18 13:30 Temperature Pulse Rate 69 75 68 Respiratory Rate 11 L 12 21 Blood Pressure 127/57 L 124/59 L 125/61 Pulse Oximetry 99 100 96 05/22/18 14:00 05/22/18 14:30 05/22/18 15:00 Temperature Pulse Rate 63 66 64 Respiratory Rate 25 H 23 12 Blood Pressure 116/54 L 111/53 L 121/58 L Pulse Oximetry 100 100 100 05/22/18 15:30 05/22/18 16:00 05/22/18 16:30 Temperature 98.4 F Pulse Rate 69 68 69 Respiratory Rate 11 L 12 15 Blood Pressure 127/60 133/62 127/58 L Pulse Oximetry 100 100 100 05/22/18 17:00 05/22/18 17:30 05/22/18 18:00 Temperature Pulse Rate 74 72 65 Respiratory Rate 12 12 13 Blood Pressure 125/60 125/60 117/56 L Pulse Oximetry 100 100 100 05/22/18 18:30 05/22/18 19:00 05/22/18 19:30 Temperature Pulse Rate 85 81 78 Respiratory Rate 16 21 23 Blood Pressure 128/61 142/63 H 140/65 Pulse Oximetry 100 100 100 05/22/18 20:00 05/22/18 20:30 05/22/18 21:00 Temperature Pulse Rate 79 79 80 Respiratory Rate 21 16 14 Blood Pressure 142/61 H 142/63 H 152/69 H Pulse Oximetry 100 100 97 05/22/18 21:30 05/22/18 22:00 05/22/18 22:30 Temperature Pulse Rate 80 79 79 Respiratory Rate 14 15 24 Blood Pressure 142/64 H 137/59 L 133/59 L Pulse Oximetry 96 100 100 05/22/18 23:00 05/22/18 23:30 05/23/18 00:00 Temperature Pulse Rate 71 75 77 Respiratory Rate 23 25 H 24 Blood Pressure 127/58 L 121/56 L 122/56 L Pulse Oximetry 99 99 99 05/23/18 00:30 05/23/18 01:00 05/23/18 01:30 Temperature Pulse Rate 77 79 78 Respiratory Rate 14 15 14 Blood Pressure 123/59 L 122/59 L 132/62 Pulse Oximetry 99 99 100 05/23/18 02:00 05/23/18 02:30 05/23/18 03:00 Temperature Pulse Rate 77 75 75 Respiratory Rate 12 14 16 Blood Pressure 135/60 129/58 L 120/56 L Pulse Oximetry 100 100 100 05/23/18 03:30 05/23/18 04:00 05/23/18 04:30 Temperature Pulse Rate 75 75 77 Respiratory Rate 10 L 9 L 13 Blood Pressure 119/55 L 122/56 L 139/62 Pulse Oximetry 100 98 100 05/23/18 05:00 05/23/18 05:30 05/23/18 06:00 Temperature Pulse Rate 75 75 76 Respiratory Rate 13 15 13 Blood Pressure 125/56 L 112/54 L 124/52 L Pulse Oximetry 99 99 05/23/18 06:15 05/23/18 06:30 05/23/18 07:00 Temperature Pulse Rate 79 78 78 Respiratory Rate 19 17 11 L Blood Pressure 117/56 L 132/56 L 119/53 L Pulse Oximetry 05/23/18 07:30 05/23/18 08:00 05/23/18 08:30 Temperature Pulse Rate 79 79 79 Respiratory Rate 11 L 16 18 Blood Pressure 119/53 L 109/51 L 109/52 L Pulse Oximetry 100 05/23/18 09:00 05/23/18 09:30 Temperature Pulse Rate 78 79 Respiratory Rate 16 14 Blood Pressure 113/53 L 118/57 L Pulse Oximetry Intake & Output 05/22/18 05/23/18 05/23/18 18:59 06:59 18:59 Intake Total 50 / 50 50 / 50 Balance 50 / 50 50 / 50 Weight 134.5 kg Intake: IV 50 / 50 50 / 50 Zosyn 2.25 GM Premix 50 ML @ 50 / 50 50 / 50 100 mls/hr IV.SIG Q12H [facility] Rx#: [id number] Other: Date of Last Bowel Movement 05/20/18 05/20/18 05/20/18 Result Diagrams: 05/23/18 09:16 05/23/18 09:16 Objective Remarks: GEN: Awake and alert, no distress HEENT: NCAT, PERRL NECK: Trachea midline CARDIO: Regular rate and rhythm in 90s PULM: Clear to auscultation bilaterally ABD/GI: Obese, soft, non-tender in all quadrants EXT/MSK: AVF in LUE with palpable bruit, (+) thrill. Trace peripheral edema. SKIN: Unchanged from previous, no new rashes or lesions NEURO: AA&Ox3, answers all questions appropriately, moves all extremities, no neuro deficits PSYCH: Calm, appropriate affect Assessment and Plan - Problem List (1) Hyperkalemia Code(s): E87.5 - Hyperkalemia Status: Acute (2) Encephalopathy acute Code(s): G93.40 - Encephalopathy, unspecified Status: Acute (3) DM (diabetes mellitus) Code(s): E11.9 - Type 2 diabetes mellitus without complications Status: Chronic (4) Chest pain Code(s): R07.9 - Chest pain, unspecified Status: Acute (5) Sepsis Code(s): A41.9 - Sepsis, unspecified organism Status: Acute (6) CAD (coronary artery disease) Code(s): I25.10 - Atherosclerotic heart disease of [place] coronary artery without angina pectoris Status: Chronic (7) AV fistula Code(s): I77.0 - Arteriovenous fistula, acquired Status: Chronic (8) Gram-positive bacteremia Code(s): R78.81 - Bacteremia Status: Acute - Assessment and Plan Plan: 63yM with history of ESRD on HD, CAD s/p recent stents, bradycardia s/p AICD, now with sepsis and concern for cellulitis/ AVG infection NEURO: -Mental status at baseline, no deficits -Delirium precautions CARDIO: -BP control- continue home meds but hold MARIBETH-I -Continue Brilinta and ASA, continue statin RESP: -Incentive spirometer F/E/N: -Renal/ cardiac/ diabetic diet * Sodium 129, likely hypervolemic hyponatremia -HD tomorrow ID: -Concern for possible AVG infection vs cellulitis adjacent to AVG; duplex US shows small fluid collection at distal end of AVG, vascular recs appreciated * Dr. Maynard recommends podiatry consult as well -Patient on renally dosed vanco/ zosyn, hutton-cultures sent and pending -No pneumonia seen on CXR or CT scan, no UTI noted on UA -Flu swab pending -MRSA bacteremia, ID following, repeat cultures sent yesterday PROPHY: -SCDs, Brilinta -No indication for PPI OVERALL: This patient has sepsis and bacteremia in the setting of multiple comorbidities. He remains at high risk for decompensation and requires ICU level of care. Level 2 follow up To help prompt me to consider important information that might be impacting today's encounter and assessment, information from prior notes written by myself or my colleagues may have been "brought forward" into today's note. My signature on this note, however, is an attestation that I personally performed the exam, history, and/or decision-making noted today, and, unless otherwise indicated, the interactions with patient, family, and staff as well as the review of records all occurred today. I also attest that the listed assessment and stated plan reflect my best clinical judgment today based on the combination of historical information, prior notes, and today's exam/ interactions. Code Status: Full
[2018-05-23 10:43] LABS: Albumin 2.6 g/dL (3.4-5.0); Calcium 6.9 mg/dL (8.5-10.1); Carbon Dioxide 24.3 meq/L (21.0-32.0); Magnesium 2.2 mg/dL (1.5-2.5); Phosphorus 7.2 mg/dL (2.5-4.9); Potassium 4.4 meq/L (3.5-5.1); Total Protein 6.4 g/dL (6.4-8.2); Vancomycin,Random 15.6 Comment
[2018-05-23] MEDS: Insulin NovoLOG Aspart Correctional Sugar Inj SQ SCH ×4 (10:51→20:53)
[2018-05-23 11:02] LABS: Baso % (Auto) 0.5 % (0.0-2.0); Eos # (Auto) 0.1 th/mm3 (0.0-0.4); Eos % (Auto) 1.5 % (0.0-4.0); Hematocrit 28.8 % (39.0-51.0); Lymph # (Auto) 0.5 th/mm3 (1.0-4.8); Lymph % (Auto) 10.5 % (9.0-44.0); Mean Corpuscular HGB Conc 34.6 % (32.0-36.0); Mean Corpuscular Hemoglobin 33.2 pg (27.0-34.0); Mean Corpuscular Volume 95.9 fL (80.0-100.0); Mean Platelet Volume 9.2 fL (7.0-11.0); Mono # (Auto) 1.5 th/mm3 (0.0-0.9); Neut # (Auto) 2.8 th/mm3 (1.8-7.7); Neut % (Auto) 56.5 % (16.0-70.0); Platelet Count 111 th/mm3 (150-450)
--- NOTE | 2018-05-23 11:31 | P.PNID ---
Subjective Remarks: Patient is a 63-year-old male, brought into the hospital complaining of chest pain. Patient has known coronary artery disease. He had prior stenting of his coronaries I believe back in August of this year. In February he was readmitted and had an WI, and at that time he had bradycardia and he underwent placement of a pacemaker. Patient on this admission started having fevers and he was encephalopathic. There was some notation that he had some redness on his left upper extremity where he has his AV graft. Patient stated he had the AV graft put in about 6 months ago and the dialysis unit started using it about 4 months ago. Patient was also noted to have multiple wounds in the right foot as well as in the left foot. He stated he was hospitalized at [facility] last April and had surgery on his toes. He could not really tell me which of the toes he had surgery on. I spoke with microbiology in [facility], and there was a toe culture that grew Morganella morganii acne. It was resistant to ampicillin, Unasyn, cefazolin, and intermediate to gentamicin. Patient was apparently given some oral antibiotic but he could not remember what it was. He was last seen by his spray foam installer about a week ago and as far as he knows there was no problem with it. Patient states that he ambulates without any problem at home. Blood cultures done on this admission is now reported as growing possible MRSA. He had imaging study of the AV graft and there is a small fluid close to the AV graft. Patient currently is awake and alert and oriented. He is not short of breath, and currently no chest pain. Patient states he has neuropathy and does not really feel any pain in both feet. Infectious disease consultation has been requested to assist with evaluation and treatment of patient with positive blood culture. Notes reviewed [facility] with MRSA Feels weak Records from [facility] not available yet Antibiotics: Zosyn Vancomycin Past Medical History: Neuropathy (Acute) AV fistula (Chronic) Coronary artery disease Diabetes End stage renal disease History of amputation of great toe of both feet Seizure Knee joint replacement status (Acute) History of cholecystectomy Allergies/Adverse Reactions: Allergies *MDRO Multi-Drug Resistant Organism Adverse Reaction (Intermediate, Uncoded 00:22) Abdominal Pain 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 Objective Vital Signs 05/22/18 11:37 05/22/18 12:00 05/22/18 12:01 Temperature 98.6 F Pulse Rate 69 70 70 Respiratory Rate 15 12 14 Blood Pressure 118/53 L 131/55 L 131/55 L Pulse Oximetry 98 99 99 05/22/18 12:30 05/22/18 13:00 05/22/18 13:30 Temperature Pulse Rate 69 75 68 Respiratory Rate 11 L 12 21 Blood Pressure 127/57 L 124/59 L 125/61 Pulse Oximetry 99 100 96 05/22/18 14:00 05/22/18 14:30 05/22/18 15:00 Temperature Pulse Rate 63 66 64 Respiratory Rate 25 H 23 12 Blood Pressure 116/54 L 111/53 L 121/58 L Pulse Oximetry 100 100 100 05/22/18 15:30 05/22/18 16:00 05/22/18 16:30 Temperature 98.4 F Pulse Rate 69 68 69 Respiratory Rate 11 L 12 15 Blood Pressure 127/60 133/62 127/58 L Pulse Oximetry 100 100 100 05/22/18 17:00 05/22/18 17:30 05/22/18 18:00 Temperature Pulse Rate 74 72 65 Respiratory Rate 12 12 13 Blood Pressure 125/60 125/60 117/56 L Pulse Oximetry 100 100 100 05/22/18 18:30 05/22/18 19:00 05/22/18 19:30 Temperature Pulse Rate 85 81 78 Respiratory Rate 16 21 23 Blood Pressure 128/61 142/63 H 140/65 Pulse Oximetry 100 100 100 05/22/18 20:00 05/22/18 20:30 05/22/18 21:00 Temperature Pulse Rate 79 79 80 Respiratory Rate 21 16 14 Blood Pressure 142/61 H 142/63 H 152/69 H Pulse Oximetry 100 100 97 05/22/18 21:30 05/22/18 22:00 05/22/18 22:30 Temperature Pulse Rate 80 79 79 Respiratory Rate 14 15 24 Blood Pressure 142/64 H 137/59 L 133/59 L Pulse Oximetry 96 100 100 05/22/18 23:00 18 23:30 05/23/18 00:00 Temperature Pulse Rate 71 75 77 Respiratory Rate 23 25 H 24 Blood Pressure 127/58 L 121/56 L 122/56 L Pulse Oximetry 99 99 99 05/23/18 00:30 05/23/18 01:00 05/23/18 01:30 Temperature Pulse Rate 77 79 78 Respiratory Rate 14 15 14 Blood Pressure 123/59 L 122/59 L 132/62 Pulse Oximetry 99 99 100 05/23/18 02:00 05/23/18 02:30 05/23/18 03:00 Temperature Pulse Rate 77 75 75 Respiratory Rate 12 14 16 Blood Pressure 135/60 129/58 L 120/56 L Pulse Oximetry 100 100 100 05/23/18 03:30 05/23/18 04:00 05/23/18 04:30 Temperature Pulse Rate 75 75 77 Respiratory Rate 10 L 9 L 13 Blood Pressure 119/55 L 122/56 L 139/62 Pulse Oximetry 100 98 100 05/23/18 05:00 05/23/18 05:30 05/23/18 06:00 Temperature Pulse Rate 75 75 76 Respiratory Rate 13 15 13 Blood Pressure 125/56 L 112/54 L 124/52 L Pulse Oximetry 99 99 05/23/18 06:15 05/23/18 06:30 05/23/18 07:00 Temperature Pulse Rate 79 78 78 Respiratory Rate 19 17 11 L Blood Pressure 117/56 L 132/56 L 119/53 L Pulse Oximetry 05/23/18 07:30 05/23/18 08:00 05/23/18 08:30 Temperature Pulse Rate 79 79 79 Respiratory Rate 11 L 16 18 Blood Pressure 119/53 L 109/51 L 109/52 L Pulse Oximetry 100 05/23/18 09:00 05/23/18 09:30 05/23/18 10:51 Temperature Pulse Rate 78 79 Respiratory Rate 16 14 14 Blood Pressure 113/53 L 118/57 L Pulse Oximetry Intake & Output 05/22/18 05/23/18 05/23/18 18:59 06:59 18:59 Intake Total 50 / 50 50 / 50 Balance 50 / 50 50 / 50 Weight 134.5 kg Intake: IV 50 / 50 50 / 50 Zosyn 2.25 GM Premix 50 ML @ 50 / 50 50 / 50 100 mls/hr IV.SIG Q12H [facility] Rx#: [id number] Other: Date of Last Bowel Movement 05/20/18 05/20/18 05/20/18 05/22/18 13:28 Blood - Peripheral Aerobic Blood Culture - Preliminary No growth in 1 day 05/22/18 13:28 Blood - Peripheral Anaerobic Blood Culture - Preliminary No growth in 1 day 05/22/18 13:41 Blood - Peripheral Aerobic Blood Culture - Preliminary No growth in 1 day 05/22/18 13:41 Blood - Peripheral Anaerobic Blood Culture - Preliminary No growth in 1 day 05/21/18 09:51 Catheterized Urine Urine Culture - Final No growth in 48 hours 05/21/18 09:56 Blood - Peripheral Aerobic Blood Culture - Preliminary S. aureus MRSA 05/21/18 09:56 Blood - Peripheral Anaerobic Blood Culture - Preliminary S. aureus MRSA 05/21/18 09:56 Blood - Peripheral Aerobic Blood Culture - Preliminary S. aureus MRSA 05/21/18 09:56 Blood - Peripheral Anaerobic Blood Culture - Preliminary S. aureus MRSA 05/22/18 09:50 Nasal Wash Influenza Types A,B Antigen - Final Negative for FLU A and B antigen Infection due to influenza A or B cannot be ruled out since the antigen present in the sample may be below the detection limit of the test. Lab - Hematology Results 05/21/18 05/22/18 15:41 05:09 WBC 8.3 7.3 RBC 2.98 L 3.02 L Hgb 10.0 L 10.0 L Hct 29.4 L 29.4 L MCV 98.5 97.3 MCH 33.4 33.2 MCHC 33.9 34.1 RDW 14.7 14.7 Plt Count 140 L 134 L MPV 7.4 8.0 Neut % (Auto) 91.1 H 89.0 H Lymph % (Auto) 1.7 L 2.0 L [place] % (Auto) 6.7 8.9 H Eos % (Auto) 0.1 0.0 Baso % (Auto) 0.4 0.1 Neut # (Auto) 7.6 6.5 Lymph # (Auto) 0.1 L 0.1 L [place] # (Auto) 0.6 0.6 Eos # (Auto) 0.0 0.0 Baso # (Auto) 0.0 0.0 WBC Differential . . Differential Comment Auto diff final Auto diff final Lab - Chemistry Results 05/21/18 05/21/18 05/21/18 12:07 14:51 15:21 Sodium Potassium Chloride Carbon Dioxide Anion Gap BUN Creatinine Estimated GFR POC Glucose 133 H 206 H Random Glucose Lactic Acid Calcium Prot Corrected Calcium Phosphorus Magnesium Total Bilirubin AST ALT Alkaline Phosphatase Ammonia Troponin I Less than 0.02 L Total Protein Albumin [facility] 05/21/18 05/21/18 05/21/18 15:41 15:41 15:41 Sodium 130 L Potassium 7.2 H* D Chloride 98 Carbon Dioxide 21.0 Anion Gap 11 BUN 54 H Creatinine 5.15 H Estimated GFR 11 L POC Glucose Random Glucose 195 H Lactic Acid 1.6 Calcium 7.6 L Prot Corrected Calcium Phosphorus 3.5 Magnesium 1.9 Total Bilirubin 0.7 AST 53 H ALT 44 Alkaline Phosphatase 174 H Ammonia 28 Troponin I Total Protein 7.8 Albumin 3.1 L TSH 2.040 05/21/18 05/21/18 05/21/18 19:53 20:44 23:37 Sodium Potassium Chloride Carbon Dioxide Anion Gap BUN Creatinine Estimated GFR POC Glucose 255 H 186 H Random Glucose Lactic Acid Calcium Prot Corrected Calcium Phosphorus Magnesium Total Bilirubin AST ALT Alkaline Phosphatase Ammonia Troponin I 0.11 H Total Protein Albumin [facility] 05/22/18 05/22/18 05/22/18 05:09 08:14 12:52 Sodium 135 L Potassium 4.5 D Chloride 97 L Carbon Dioxide 27.0 Anion Gap 11 BUN 45 H Creatinine 4.38 H Estimated GFR 14 L POC Glucose 190 H 200 H Random Glucose 157 H Lactic Acid Calcium 7.6 L Prot Corrected Calcium Phosphorus 5.0 H D Magnesium 2.0 Total Bilirubin 0.8 AST 153 H ALT 82 H Alkaline Phosphatase 159 H Ammonia Troponin I Total Protein 7.5 Albumin 2.9 L [facility] 05/22/18 05/22/18 05/23/18 17:14 22:12 09:16 Sodium 129 L Potassium 4.4 Chloride 93 L Carbon Dioxide 24.3 Anion Gap 12 BUN 67 H Creatinine 6.03 H Estimated GFR 9 L POC Glucose 201 H 212 H Random Glucose 122 H Lactic Acid Calcium 6.9 L* Prot Corrected Calcium 7.3 L* Phosphorus 7.2 H D Magnesium 2.2 Total Bilirubin 0.6 AST 141 H ALT 91 H Alkaline Phosphatase 130 H Ammonia Troponin I Total Protein 6.4 D Albumin 2.6 L TSH 05/23/18 09:24 Sodium Potassium Chloride Carbon Dioxide Anion Gap BUN Creatinine Estimated GFR POC Glucose 127 H Random Glucose Lactic Acid Calcium Prot Corrected Calcium Phosphorus Magnesium Total Bilirubin AST ALT Alkaline Phosphatase Ammonia Troponin I Total Protein Albumin TSH Imaging: ITS Impressions Chest CTA 05/21/18 00:00 CONCLUSION: 1. No evidence of pulmonary embolism. 2. Minimal scattered ground-glass densities are noted consistent with minimal pulmonary vascular congestion versus atelectatic changes. 3. Coronary artery calcifications. 4. Tiny bilateral pleural effusions. 5. Splenomegaly. 6. Pneumobilia. 7. 13 mm right thyroid lobe nodule. 8. Degenerative changes throughout the thoracic spine. Chest X-Ray 05/21/18 00:28 CONCLUSION: Small lung volumes with an elevated right hemidiaphragm. Right subclavian bipolar pacer Extremity Arterial Study 05/22/18 00:00 CONCLUSION: 1. There is significant decrease in the ankle-brachial index on the right suggesting severe peripheral vascular disease. The left ankle-brachial index could not be obtained, but the toe brachial index on the left is significantly decreased suggesting severe peripheral vascular disease on the left also. Head CT 05/22/18 00:00 CONCLUSION: 1. Negative CT Head non contrast. . Lower Extremity Ultrasound 05/22/18 00:00 CONCLUSION: 1. Saphenous vein mapping/measurements as described above. Venous Doppler Study 05/23/18 00:00 CONCLUSION: No evidence of deep venous thrombosis. Physical Exam: GENERAL: Patient is an obese, well-developed male, awake and alert, not in respiratory distress. SKIN: Cool and dry. No generalized rash, no ecchymoses and no evidence of embolic lesions. Has multiple dry wounds in both LE HEAD: Atraumatic. Normocephalic. No temporal wasting, or tenderness. EYES: [place] conjunctiva. No petechia or hemorrhage. Pupils equal, round and reactive to light. Extraocular movements full and intact. No scleral icterus. No injection or drainage. EARS, NOSE AND THROAT: Nose without bleeding or purulent nasal discharge. No sinus tenderness. Mucous membranes pink and moist. No oral lesions noted. No exudate. No oral thrush. NECK: Trachea midline. Supple and not tender, no meningeal signs CARDIOVASCULAR: Regular rate and rhythm. No murmurs, rubs or gallops heard. Pacer in R upper chest has well healed incision, not red, not swollen, not tender RESPIRATORY: Clear to auscultation. Breath sounds equal bilaterally. No rales , wheezing or rhonchi ABDOMEN: Soft, globular, non-tender, nondistended. Bowel sounds present and normoactive. No guarding. No rebound. EXTREMITIES: No clubbing, cyanosis. Skin tight in both LE. Has multiple dry wounds on both legs, no evidence of infection. L foot - S/P amp 2-4 toes, there is a dry ulcer plantar aspect over 2nd and 3rd MT, and there is a wet L heel ulcer. R foot he has dry wounds over the remaining 2nd and 3rd toes, ? partial amputation. it also looks like he had ray resection of 5th MT and there is a dry scab or ulcer present, some mild erythema on dorsum of that R foot. Healed partial amp of his R big toe. No calf tenderness. Tight skin on both feet, cool, no pulses appreciated. He has AVG in LUE and does not look infected on exam NEUROLOGICAL: Awake and alert. Cranial nerves grossly intact. Motor grossly within normal limits. PSYCHIATRIC: Normal affect, calm and cooperative. LINE: No evidence of infection Assessment and Plan - Plan Impression MRSA sepsis, source? - has pacer recently placed, site looks ok - has LUE AVG, looks ok; not sure significance of fluid seen on doppler, ?early infection; per report had redness on admission - has multiple wounds both feet - ?endocarditis ESRD on HD Encephalopathy due to sepsis, better Prob with PVD Recommendation IV Vancomycin - level is low, will give another dose today Repeat BC to document clearing Continue GNR coverage for the feet ulcers - get records from [facility] - podiatry evaluation PVD work-up Follow temps Echo Follow C/S May need ANANT Monitor progress
[2018-05-23 11:41] LABS: Eosinophils 1 % (0-4); Lymphocytes 4 % (9-44); Monocytes 27 % (0-8)
[2018-05-23] MEDS ORDERED: Vancomycin Inj 1,000 MG in Sodium Chlor 0.9% Inj 250 ML IV.SIG ONE (12:00)
--- NOTE | 2018-05-23 12:33 | P.PNVS ---
Subjective Subjective/Hospital Course: Pt w/o complaints Wounds to B LE stable L UE AVG w/ + thrill L UE w/o swelling I saw and examined the patient, agree with SEARCH AND RESCUE OFFICER A/P: date of service 05/23/18 MRSA bacteremia, unknown source ? LUE AVG infection, PE is unremarkable for graft infection continue with workup per ID, will follow Non-healing BLE wounds with decreased ACN/TBI CTA pending Casper Collins MD [id number] Objective Vital Signs / I&O: Vital Signs 05/22/18 12:30 05/22/18 13:00 05/22/18 13:30 Temperature Pulse Rate 69 75 68 Respiratory Rate 11 L 12 21 Blood Pressure 127/57 L 124/59 L 125/61 Pulse Oximetry 99 100 96 05/22/18 14:00 05/22/18 14:30 05/22/18 15:00 Temperature Pulse Rate 63 66 64 Respiratory Rate 25 H 23 12 Blood Pressure 116/54 L 111/53 L 121/58 L Pulse Oximetry 100 100 100 05/22/18 15:30 05/22/18 16:00 05/22/18 16:30 Temperature 98.4 F Pulse Rate 69 68 69 Respiratory Rate 11 L 12 15 Blood Pressure 127/60 133/62 127/58 L Pulse Oximetry 100 100 100 05/22/18 17:00 05/22/18 17:30 05/22/18 18:00 Temperature Pulse Rate 74 72 65 Respiratory Rate 12 12 13 Blood Pressure 125/60 125/60 117/56 L Pulse Oximetry 100 100 100 05/22/18 18:30 05/22/18 19:00 05/22/18 19:30 Temperature Pulse Rate 85 81 78 Respiratory Rate 16 21 23 Blood Pressure 128/61 142/63 H 140/65 Pulse Oximetry 100 100 100 05/22/18 20:00 05/22/18 20:30 05/22/18 21:00 Temperature Pulse Rate 79 79 80 Respiratory Rate 21 16 14 Blood Pressure 142/61 H 142/63 H 152/69 H Pulse Oximetry 100 100 97 05/22/18 21:30 05/22/18 22:00 05/22/18 22:30 Temperature Pulse Rate 80 79 79 Respiratory Rate 14 15 24 Blood Pressure 142/64 H 137/59 L 133/59 L Pulse Oximetry 96 100 100 05/22/18 23:00 05/22/18 23:30 05/23/18 00:00 Temperature Pulse Rate 71 75 77 Respiratory Rate 23 25 H 24 Blood Pressure 127/58 L 121/56 L 122/56 L Pulse Oximetry 99 99 99 05/23/18 00:30 05/23/18 01:00 05/23/18 01:30 Temperature Pulse Rate 77 79 78 Respiratory Rate 14 15 14 Blood Pressure 123/59 L 122/59 L 132/62 Pulse Oximetry 99 99 100 05/23/18 02:00 05/23/18 02:30 05/23/18 03:00 Temperature Pulse Rate 77 75 75 Respiratory Rate 12 14 16 Blood Pressure 135/60 129/58 L 120/56 L Pulse Oximetry 100 100 100 05/23/18 03:30 05/23/18 04:00 05/23/18 04:30 Temperature Pulse Rate 75 75 77 Respiratory Rate 10 L 9 L 13 Blood Pressure 119/55 L 122/56 L 139/62 Pulse Oximetry 100 98 100 05/23/18 05:00 05/23/18 05:30 05/23/18 06:00 Temperature Pulse Rate 75 75 76 Respiratory Rate 13 15 13 Blood Pressure 125/56 L 112/54 L 124/52 L Pulse Oximetry 99 99 05/23/18 06:15 05/23/18 06:30 05/23/18 07:00 Temperature Pulse Rate 79 78 78 Respiratory Rate 19 17 11 L Blood Pressure 117/56 L 132/56 L 119/53 L Pulse Oximetry 05/23/18 07:30 05/23/18 08:00 05/23/18 08:30 Temperature Pulse Rate 79 79 79 Respiratory Rate 11 L 16 18 Blood Pressure 119/53 L 109/51 L 109/52 L Pulse Oximetry 100 05/23/18 09:00 05/23/18 09:30 05/23/18 10:00 Temperature Pulse Rate 78 79 77 Respiratory Rate 16 14 19 Blood Pressure 113/53 L 118/57 L 120/58 L Pulse Oximetry 05/23/18 10:30 05/23/18 10:51 05/23/18 11:00 Temperature Pulse Rate 76 78 Respiratory Rate 8 L 14 15 Blood Pressure 120/56 L 116/58 L Pulse Oximetry 05/23/18 11:30 05/23/18 12:00 Temperature Pulse Rate 78 79 Respiratory Rate 9 L Blood Pressure 111/53 L Pulse Oximetry Intake & Output 05/22/18 05/23/18 05/23/18 18:59 06:59 18:59 Intake Total 50 / 50 50 / 50 Balance 50 / 50 50 / 50 Weight 134.5 kg Intake: IV 50 / 50 50 / 50 Zosyn 2.25 GM Premix 50 ML @ 50 / 50 50 / 50 100 mls/hr IV.SIG Q12H [facility] Rx#: [id number] Other: Date of Last Bowel Movement 05/20/18 05/20/18 05/20/18 Physical Exam: L UE w/o swelling Multiple bilateral toe wounds stable LE warm w/ motor intact Palpable femoral pulses noted [employer]ICER distal pulses noted Laboratory Results - last 24 hr 05/22/18 05/22/18 05/22/18 12:52 17:14 22:12 WBC RBC Hgb Hct MCV MCH MCHC RDW Plt Count MPV Prelim Diff (Auto) Neut % (Auto) Lymph % (Auto) [place] % (Auto) Eos % (Auto) Baso % (Auto) Neut # (Auto) Lymph # (Auto) [place] # (Auto) Eos # (Auto) Baso # (Auto) WBC Differential Seg Neuts % (Manual) Band Neuts % (Manual) Lymphocytes % (Manual) Monocytes % (Manual) Eosinophils % (Manual) Abs Neuts (Manual) Differential Comment Platelet Estimate Platelet Morphology Hematology Comments Sodium Potassium Chloride Carbon Dioxide Anion Gap BUN Creatinine Estimated GFR POC Glucose 200 H 201 H 212 H Random Glucose Calcium Prot Corrected Calcium Phosphorus Magnesium Total Bilirubin AST ALT Alkaline Phosphatase Total Protein Albumin Random Vancomycin 05/23/18 05/23/18 05/23/18 09:16 09:16 09:24 WBC 5.0 RBC 3.00 L Hgb 10.0 L Hct 28.8 L MCV 95.9 MCH 33.2 MCHC 34.6 RDW 15.0 Plt Count 111 L MPV 9.2 Prelim Diff (Auto) Slide review pending Neut % (Auto) 56.5 Lymph % (Auto) 10.5 [place] % (Auto) 31.0 H Eos % (Auto) 1.5 Baso % (Auto) 0.5 Neut # (Auto) 2.8 Lymph # (Auto) 0.5 L [place] # (Auto) 1.5 H Eos # (Auto) 0.1 Baso # (Auto) 0.0 WBC Differential Manual diff final Seg Neuts % (Manual) 38 Band Neuts % (Manual) 30 H Lymphocytes % (Manual) 4 L Monocytes % (Manual) 27 H Eosinophils % (Manual) 1 Abs Neuts (Manual) 3.4 Differential Comment . Platelet Estimate Low L Platelet Morphology Enlarged H Hematology Comments Sodium 129 L Potassium 4.4 Chloride 93 L Carbon Dioxide 24.3 Anion Gap 12 BUN 67 H Creatinine 6.03 H Estimated GFR 9 L POC Glucose 127 H Random Glucose 122 H Calcium 6.9 L* Prot Corrected Calcium 7.3 L* Phosphorus 7.2 H D Magnesium 2.2 Total Bilirubin 0.6 AST 141 H ALT 91 H Alkaline Phosphatase 130 H Total Protein 6.4 D Albumin 2.6 L Random Vancomycin 15.6 Microbiology 05/22/18 13:28 Aerobic Blood Culture - Preliminary Blood - Peripheral No growth in 1 day Anaerobic Blood Culture - Preliminary No growth in 1 day 05/22/18 13:41 Aerobic Blood Culture - Preliminary Blood - Peripheral No growth in 1 day Anaerobic Blood Culture - Preliminary No growth in 1 day 05/21/18 09:51 Urine Culture - Final Catheterized Urine No growth in 48 hours 05/21/18 09:56 Aerobic Blood Culture - Preliminary Blood - Peripheral S. aureus MRSA Anaerobic Blood Culture - Preliminary S. aureus MRSA 05/21/18 09:56 Aerobic Blood Culture - Preliminary Blood - Peripheral S. aureus MRSA Anaerobic Blood Culture - Preliminary S. aureus MRSA 05/22/18 09:50 Influenza Types A,B Antigen - Final Nasal Wash Negative for FLU A and B antigen Infection due to influenza A or B cannot be ruled out since the antigen present in the sample may be below the detection limit of the test. Impressions Chest CTA 05/21/18 00:00 CONCLUSION: 1. No evidence of pulmonary embolism. 2. Minimal scattered ground-glass densities are noted consistent with minimal pulmonary vascular congestion versus atelectatic changes. 3. Coronary artery calcifications. 4. Tiny bilateral pleural effusions. 5. Splenomegaly. 6. Pneumobilia. 7. 13 mm right thyroid lobe nodule. 8. Degenerative changes throughout the thoracic spine. Venous Doppler Study 05/21/18 15:48 CONCLUSION: 1. No evidence of deep venous thrombosis. 2. A-V graft is patent and demonstrates flow. The amount of fluid surrounds the region of the distal graft Extremity Arterial Study 05/22/18 00:00 CONCLUSION: 1. There is significant decrease in the ankle-brachial index on the right suggesting severe peripheral vascular disease. The left ankle-brachial index could not be obtained, but the toe brachial index on the left is significantly decreased suggesting severe peripheral vascular disease on the left also. Head CT 05/22/18 00:00 CONCLUSION: 1. Negative CT Head non contrast. . Lower Extremity Ultrasound 05/22/18 00:00 CONCLUSION: 1. Saphenous vein mapping/measurements as described above. Venous Doppler Study 05/22/18 00:00 CONCLUSION: 1. The study is negative for bilateral lower extremity deep venous thrombosis. Venous Doppler Study 05/23/18 00:00 CONCLUSION: No evidence of deep venous thrombosis. Assessment and Plan - Assessment (1) Fever Code(s): R50.9 - Fever, unspecified Status: Acute - Plan 63 yo male with fever and now bacteremia Pt w/ a Left Upper Extremity ArterioVenous Graft. Clinically, it looks ok and I am underwhelmed by the small fluid on the duplex. However given the bacteremia, this may need to be excised He also has cellulitis around B toe and heel ulcers and I don't feel pedal pulses Plan CAN reviewed- Severe arterial occlusive disease Continue Broad antibiotics CTA runoff ordered for further dx review- once resulted recommendations to follow Candace Smith SEARCH AND RESCUE OFFICER Coub/Fundology [phone] (1) Fever Qualifiers: Fever type: unspecified Qualified Code(s): R50.9 - Fever, unspecified
[2018-05-23] MEDS ORDERED: Calcium Gluconate Inj 1 GM in Dextrose 5% in Water Inj 100 ML IV.SIG ONE ×2 (14:00)
--- NOTE | 2018-05-23 21:20 | P.CONPOD ---
History of Present Illness Service: Podiatry Consult date: 05/23/18 Primary Care Provider: No Primary Care Physician Chief Complaint: Chest Pain History of Present Illness: Patient has history of multiple foot surgeries. he says he has had wounds on his feet for over a year, and has had vascular procedures in the past with Dr Hdz. He has neuropathy and feels no pain, currently. Review of Systems All other systems reviewed negative except as stated in HPI [facility] - History History Provided By: Patient - Medical History Medical History: Medical History (Last Updated 05/23/18 @ 08:48 by Oneyda Ta) Neuropathy (Acute) AV fistula (Chronic) Coronary artery disease History of MRSA infection Onset Date: ~05/21/18 Diabetes End stage renal disease History of amputation of great toe of both feet Seizure - Surgical History Surgical History: Surgical History (Last Reviewed 05/22/18 @ 10:08 by Wesley Maynard MD) Knee joint replacement status (Acute) History of cholecystectomy - Tobacco History Second Hand Smoke Exposure: Yes Tobacco Use In Past 30 Days: No Smoking Status: Never smoker - Alcohol History How Often Do You Have a Drink Containing Alcohol: Never - Substance Use History Substance History: No History of Abuse - Travel History Recent Travel in the [place] Within the Last 8 Weeks: No Recent Travel Out of the Country Within the Last 8 Weeks: No - Immunization History Tetanus Immunization: <5 Years Medications and Allergies Active Medications: Active Medications Acetaminophen (Tylenol) 650 mg PO Q4H PRN PRN Reason: Temp > 100.4 Last Admin: 05/21/18 08:42 Dose: 650 mg Acetaminophen (Tylenol) 650 mg PO UNSCH PRN PRN Reason: SEE LABEL COMMENTS Hydrocodone Bitart/Acetaminophen ([place] 5/325) 1 tab PO Q4H PRN PRN Reason: PAIN SCALE 3 TO 5 Last Admin: 05/23/18 09:17 Dose: 1 tab Amlodipine Besylate (Norvasc) 5 mg PO DAILY [facility] Last Admin: 05/23/18 09:17 Dose: 5 mg Aspirin (Aspirin Chew) 81 mg PO DAILY [facility] Last Admin: 05/23/18 09:17 Dose: 81 mg Atorvastatin Calcium (Lipitor) 20 mg PO HS [facility] Last Admin: 05/23/18 20:35 Dose: 20 mg Bisacodyl (Dulcolax Supp) 10 mg RECTAL DAILY PRN PRN Reason: SEVERE CONSITIPATION Chlorhexidine Gluconate (Chlorhexidine 2% Cloth) 3 pack TOPICAL DAILY@0400 [facility] Stop: 05/27/18 03:59 Last Admin: 05/23/18 07:17 Dose: 3 pack Chlorhexidine Gluconate (Chlorhexidine 2% Cloth) 3 pack TOPICAL DAILY@0400 PRN PRN Reason: Extra cloth needed Stop: 05/27/18 03:59 Clonidine HCl (Catapres) 0.1 mg PO UNSCH PRN PRN Reason: SEE LABEL COMMENTS Dextrose (D50w Vial) 50 ml IV.PUSH UNSCH PRN PRN Reason: PER HYPOGLYCEMIA PROTOCOL Diphenhydramine HCl (Benadryl) 25 mg PO UNSCH PRN PRN Reason: SEE LABEL COMMENTS Epoetin Stefano (Epogen Inj) 6,000 unit IV.PUSH UNSCH PRN PRN Reason: SEE LABEL COMMENTS Last Admin: 05/21/18 20:35 Dose: 6,000 unit Gabapentin (Neurontin) 300 mg PO BID [facility] Last Admin: 05/23/18 20:35 Dose: 300 mg Gelatin (Gelfoam 12 Mm/7 Mm Topical) 1 foam TOPICAL PRN PRN PRN Reason: help stop bleeding from site Gentamicin Sulfate (Gentamicin Inj) 20 mg OTHER WITH DIALYSIS PRN PRN Reason: Dwell Gentamycin Lock Glucagon (Glucagon Inj) 1 mg OTHER PRN PRN PRN Reason: for Hypoglycemia Protocol Heparin Sodium (Porcine) (Heparin Inj) 8,000 units OTHER WITH DIALYSIS PRN PRN Reason: for machine prime Heparin Sodium (Porcine) (Heparin Inj) 1,000 units OTHER WITH DIALYSIS PRN PRN Reason: Dwell Heparin to Fill Catheter Hydralazine HCl (Apresoline Inj) 20 mg IV.PUSH Q4H PRN PRN Reason: SBP> OR = 180, DBP> OR = 100 Last Admin: 05/22/18 00:41 Dose: 20 mg Piperacillin/Tazobactam/Dextrose (Zosyn 2.25 Gm Premix) 50 mls @ 100 mls/hr IV.SIG Q12H [facility] Last Admin: 05/23/18 12:49 Dose: 100 mls/hr Albumin Human (Flexbumin 25% Inj) 100 mls @ 60 mls/hr IV.SIG WITH DIALYSIS PRN PRN Reason: hypotension / volume replace Sodium Chloride (Ns Inj) 1,000 mls @ 0 mls/hr OTHER .Q0M PRN PRN Reason: for prime and rinse back Sodium Chloride (Ns Inj) 1,000 mls @ 200 mls/hr OTHER .Q5H PRN PRN Reason: for dialyzer flush PRN Sodium Chloride (Ns Inj) 1,000 mls @ 0 mls/hr IV.CONT .Q0M PRN PRN Reason: hypotension / volume replace Acetaminophen (Ofirmev Inj) 1,000 mg in 100 mls @ 300 mls/hr IV.SIG Q6H PRN PRN Reason: FEVER Last Infusion: 05/21/18 17:00 Dose: Infused Vancomycin HCl 1,000 mg/ (Sodium Chloride) 250 mls @ 250 mls/hr IV.SIG WITH DIALYSIS [facility] Insulin Aspart (Novolog Insulin Correctional Sugar Inj) 0 unit SQ ACHS [facility]; Protocol Last Admin: 05/23/18 20:53 Dose: 3 unit Labetalol HCl (Trandate Inj) 10 mg IV.PUSH Q4H PRN PRN Reason: SBP>180, DBP>100, HR>65 Lactulose (Lactulose Liq) 30 ml PO DAILY PRN PRN Reason: SEVERE CONSITIPATION Mannitol (Mannitol Inj) 12.5 gm IV.PUSH UNSCH PRN PRN Reason: hypotension / volume replace Methocarbamol (Robaxin) 500 mg PO QID [facility] Last Admin: 05/23/18 20:34 Dose: 500 mg Metoprolol Tartrate (Lopressor) 25 mg PO BID [facility] Last Admin: 05/23/18 20:34 Dose: 25 mg Morphine Sulfate (Morphine Inj) 2 mg IV.PUSH Q3H PRN PRN Reason: PAIN 6-10 Last Admin: 05/23/18 20:37 Dose: 2 mg Nitroglycerin (Nitro-Bid 2% Oint) 1 inch TOPICAL Q6HR [facility] Last Admin: 05/23/18 17:50 Dose: 1 inch Nitroglycerin (Nitrostat Sl) 0.4 mg SL Q5M PRN PRN Reason: CHEST PAIN Ondansetron HCl (Zofran Inj) 4 mg IV.PUSH Q6H PRN PRN Reason: NAUSEA OR VOMITING Ondansetron HCl (Zofran Inj) 4 mg IV.PUSH UNSCH PRN PRN Reason: NAUSEA OR VOMITING Phenytoin Sodium (Dilantin) 200 mg PO BID [facility] Last Admin: 05/23/18 20:35 Dose: 200 mg Senna/Docusate Sodium (Winifred-Colace) 1 tab PO BID [facility] Last Admin: 05/23/18 20:35 Dose: 1 tab Sennosides (Senokot) 17.2 mg PO Q12H PRN PRN Reason: Moderate Constipation Sodium Chloride (Ns Flush) 2 ml IV.FLUSH BID [facility] Last Admin: 05/23/18 20:54 Dose: 2 ml Sodium Chloride (Ns Flush) 2 ml IV.FLUSH PRN PRN PRN Reason: FLUSH AFTER USING IV ACCESS Sodium Chloride (Ns Flush) 5 ml IV.FLUSH PRN PRN PRN Reason: flush each lumen during HD Ticagrelor (Brilinta) 90 mg PO BID [facility] Last Admin: 05/23/18 20:35 Dose: 90 mg Allergies Allergy/AdvReac Type Severity Reaction Status Date / Time *MDRO Multi-Drug Resistant AdvReac Intermediate Abdominal Uncoded 05/21/18 00:22 Organism Pain Home Medications Medication Instructions Recorded Confirmed Type aspirin 81 mg PO DAILY 02/20/18 05/21/18 History enalapril maleate 5 mg PO DAILY 02/20/18 05/21/18 History gabapentin 300 mg PO BID 02/20/18 05/21/18 History lisinopril 10 mg PO DAILY 02/20/18 05/21/18 History metoclopramide HCl 5 mg PO TID 02/20/18 05/21/18 History phenytoin sodium extended 200 mg PO BID 02/20/18 05/21/18 History [Phenytek] insulin detemir U-100 [Levemir 34 units SUB-Q DAILY 03/15/18 05/21/18 History U-100 Insulin] Physical Exam Vital signs: Vital Signs 05/22/18 21:30 05/22/18 22:00 05/22/18 22:30 Temperature Pulse Rate 80 79 79 Respiratory Rate 14 15 24 Blood Pressure 142/64 H 137/59 L 133/59 L Pulse Oximetry 96 100 100 05/22/18 23:00 05/22/18 23:30 05/23/18 00:00 Temperature Pulse Rate 71 75 77 Respiratory Rate 23 25 H 24 Blood Pressure 127/58 L 121/56 L 122/56 L Pulse Oximetry 99 99 99 05/23/18 00:30 05/23/18 01:00 05/23/18 01:30 Temperature Pulse Rate 77 79 78 Respiratory Rate 14 15 14 Blood Pressure 123/59 L 122/59 L 132/62 Pulse Oximetry 99 99 100 05/23/18 02:00 05/23/18 02:30 05/23/18 03:00 Temperature Pulse Rate 77 75 75 Respiratory Rate 12 14 16 Blood Pressure 135/60 129/58 L 120/56 L Pulse Oximetry 100 100 100 05/23/18 03:30 05/23/18 04:00 05/23/18 04:30 Temperature Pulse Rate 75 75 77 Respiratory Rate 10 L 9 L 13 Blood Pressure 119/55 L 122/56 L 139/62 Pulse Oximetry 100 98 100 05/23/18 05:00 05/23/18 05:30 05/23/18 06:00 Temperature Pulse Rate 75 75 76 Respiratory Rate 13 15 13 Blood Pressure 125/56 L 112/54 L 124/52 L Pulse Oximetry 99 99 05/23/18 06:15 05/23/18 06:30 05/23/18 07:00 Temperature Pulse Rate 79 78 78 Respiratory Rate 19 17 11 L Blood Pressure 117/56 L 132/56 L 119/53 L Pulse Oximetry 05/23/18 07:30 05/23/18 08:00 05/23/18 08:30 Temperature Pulse Rate 79 79 79 Respiratory Rate 11 L 16 18 Blood Pressure 119/53 L 109/51 L 109/52 L Pulse Oximetry 100 05/23/18 09:00 05/23/18 09:30 05/23/18 10:00 Temperature Pulse Rate 78 79 77 Respiratory Rate 16 14 19 Blood Pressure 113/53 L 118/57 L 120/58 L Pulse Oximetry 05/23/18 10:30 05/23/18 10:51 05/23/18 11:00 Temperature Pulse Rate 76 78 Respiratory Rate 8 L 14 15 Blood Pressure 120/56 L 116/58 L Pulse Oximetry 05/23/18 11:30 05/23/18 12:00 05/23/18 12:30 Temperature 100.5 F H Pulse Rate 78 78 78 Respiratory Rate 9 L 14 12 Blood Pressure 111/53 L 109/51 L 112/53 L Pulse Oximetry 05/23/18 13:00 05/23/18 13:30 05/23/18 14:00 Temperature Pulse Rate 83 90 87 Respiratory Rate 16 15 11 L Blood Pressure 117/56 L 126/56 L 130/56 L Pulse Oximetry 05/23/18 14:30 05/23/18 15:00 05/23/18 15:30 Temperature Pulse Rate 87 87 87 Respiratory Rate 10 L 11 L 18 Blood Pressure 116/52 L 119/56 L 121/58 L Pulse Oximetry 05/23/18 16:00 05/23/18 16:30 05/23/18 17:00 Temperature Pulse Rate 88 89 90 Respiratory Rate 15 13 17 Blood Pressure 126/56 L 128/61 134/60 Pulse Oximetry 05/23/18 17:30 05/23/18 18:00 05/23/18 18:30 Temperature Pulse Rate 91 H 93 H 92 H Respiratory Rate 15 24 23 Blood Pressure 152/65 H 151/70 H 166/72 H Pulse Oximetry 97 05/23/18 19:50 Temperature Pulse Rate Respiratory Rate Blood Pressure Pulse Oximetry 99 Intake & Output 05/23/18 05/23/18 05/24/18 06:59 18:59 06:59 Intake Total 50 / 50 Balance 50 / 50 Weight 134.5 kg Intake: IV 50 / 50 Zosyn 2.25 GM Premix 50 ML @ 50 / 50 100 mls/hr IV.SIG Q12H [facility] Rx#: [id number] Other: Date of Last Bowel Movement 05/20/18 05/20/18 Narrative: Right foot with residual 2nd and 3rd digits with necrotic tissue to distal aspects and bone exposed to residual 2nd digit. Mild purulence from the area. No malodor. Left foot with hallux and 5th toe present, all others previously amputated. Tendon exposed with purulence to plantar 1st metatarsal head area. No malodor noted. Left heel with eschar and mild serous drainage. Nonpalpable pedal pulses, but warm skin temperature. Light touch sensation absent. Results - Labs CBC & Chem 7: 05/23/18 09:16 05/23/18 09:16 Laboratory Results - last 24 hr 05/22/18 05/23/18 05/23/18 22:12 09:16 09:16 WBC 5.0 RBC 3.00 L Hgb 10.0 L Hct 28.8 L MCV 95.9 MCH 33.2 MCHC 34.6 RDW 15.0 Plt Count 111 L MPV 9.2 Prelim Diff (Auto) Slide review pending Neut % (Auto) 56.5 Lymph % (Auto) 10.5 [place] % (Auto) 31.0 H Eos % (Auto) 1.5 Baso % (Auto) 0.5 Neut # (Auto) 2.8 Lymph # (Auto) 0.5 L [place] # (Auto) 1.5 H Eos # (Auto) 0.1 Baso # (Auto) 0.0 WBC Differential Manual diff final Seg Neuts % (Manual) 38 Band Neuts % (Manual) 30 H Lymphocytes % (Manual) 4 L Monocytes % (Manual) 27 H Eosinophils % (Manual) 1 Abs Neuts (Manual) 3.4 Differential Comment . Platelet Estimate Low L Platelet Morphology Enlarged H Hematology Comments Sodium 129 L Potassium 4.4 Chloride 93 L Carbon Dioxide 24.3 Anion Gap 12 BUN 67 H Creatinine 6.03 H Estimated GFR 9 L POC Glucose 212 H Random Glucose 122 H Calcium 6.9 L* Prot Corrected Calcium 7.3 L* Phosphorus 7.2 H D Magnesium 2.2 Total Bilirubin 0.6 AST 141 H ALT 91 H Alkaline Phosphatase 130 H Total Protein 6.4 D Albumin 2.6 L Random Vancomycin 15.6 05/23/18 05/23/18 05/23/18 09:24 12:42 17:43 WBC RBC Hgb Hct MCV MCH MCHC RDW Plt Count MPV Prelim Diff (Auto) Neut % (Auto) Lymph % (Auto) [place] % (Auto) Eos % (Auto) Baso % (Auto) Neut # (Auto) Lymph # (Auto) [place] # (Auto) Eos # (Auto) Baso # (Auto) WBC Differential Seg Neuts % (Manual) Band Neuts % (Manual) Lymphocytes % (Manual) Monocytes % (Manual) Eosinophils % (Manual) Abs Neuts (Manual) Differential Comment Platelet Estimate Platelet Morphology Hematology Comments Sodium Potassium Chloride Carbon Dioxide Anion Gap BUN Creatinine Estimated GFR POC Glucose 127 H 139 H 166 H Random Glucose Calcium Prot Corrected Calcium Phosphorus Magnesium Total Bilirubin AST ALT Alkaline Phosphatase Total Protein Albumin Random Vancomycin 05/23/18 20:25 WBC RBC Hgb Hct MCV MCH MCHC RDW Plt Count MPV Prelim Diff (Auto) Neut % (Auto) Lymph % (Auto) [place] % (Auto) Eos % (Auto) Baso % (Auto) Neut # (Auto) Lymph # (Auto) [place] # (Auto) Eos # (Auto) Baso # (Auto) WBC Differential Seg Neuts % (Manual) Band Neuts % (Manual) Lymphocytes % (Manual) Monocytes % (Manual) Eosinophils % (Manual) Abs Neuts (Manual) Differential Comment Platelet Estimate Platelet Morphology Hematology Comments Sodium Potassium Chloride Carbon Dioxide Anion Gap BUN Creatinine Estimated GFR POC Glucose 231 H Random Glucose Calcium Prot Corrected Calcium Phosphorus Magnesium Total Bilirubin AST ALT Alkaline Phosphatase Total Protein Albumin Random Vancomycin Microbiology 05/22/18 13:28 Blood - Peripheral Aerobic Blood Culture - Preliminary No growth in 1 day 05/22/18 13:28 Blood - Peripheral Anaerobic Blood Culture - Preliminary No growth in 1 day 05/22/18 13:41 Blood - Peripheral Aerobic Blood Culture - Preliminary No growth in 1 day 05/22/18 13:41 Blood - Peripheral Anaerobic Blood Culture - Preliminary No growth in 1 day 05/21/18 09:51 Catheterized Urine Urine Culture - Final No growth in 48 hours 05/21/18 09:56 Blood - Peripheral Aerobic Blood Culture - Preliminary S. aureus MRSA 05/21/18 09:56 Blood - Peripheral Anaerobic Blood Culture - Preliminary S. aureus MRSA 05/21/18 09:56 Blood - Peripheral Aerobic Blood Culture - Preliminary S. aureus MRSA 05/21/18 09:56 Blood - Peripheral Anaerobic Blood Culture - Preliminary S. aureus MRSA - Imaging Impressions Venous Doppler Study 05/23/18 00:00 CONCLUSION: No evidence of deep venous thrombosis. Assessment and Plan - Assessment (1) Osteomyelitis of right foot Code(s): M86.9 - Osteomyelitis, unspecified Status: Acute (2) Osteomyelitis of left foot Code(s): M86.9 - Osteomyelitis, unspecified Status: Acute - Plan Ordered XR bilateral feet and MRI bilateral feet. Continue with vascular workup to determine options available for foot based on results.
--- NOTE | 2018-05-23 22:45 | XR ---
EXAM DATE: 05/23/2018 10:39 PM EST AGE/SEX: 63 years / Male INDICATIONS: Ulcers of bilateral feet, hx of diabetes. CLINICAL DATA: This is the patient's initial encounter. Patient reports that signs and symptoms have been present for 2 days and indicates a pain score of 2/10. MEDICAL/SURGICAL HISTORY: . diabetes, hypertension . [place]ole[place] [facility] [place][id number] 01/11/2015. . FINDINGS: The patient is status post amputation at the second through fourth digits at the metatarsal levels. T here appears to be postoperative change at the fifth metatarsal. There is medial subluxation of the f irst phalanx at the first MTP joint. There does appear to be an ulcer seen distal to the first metata rsal head. An area of acute bony destruction is not seen. There is a calcaneal spur at the plantar ap oneurosis attachment site. There is chronic appearing calcification seen at the distal Achilles regio n. Vascular calcifications are seen. CONCLUSION: Right bony change as described above. Ulcer seen adjacent to the distal aspect of first metatarsal. Electronically signed by: Bautista Lester MD 05/23/2018 10:44 PM EST
--- NOTE | 2018-05-23 22:47 | XR ---
EXAM DATE: 05/23/2018 10:39 PM EST AGE/SEX: 63 years / Male INDICATIONS: Ulcers to bilateral feet with history of diabetes. CLINICAL DATA: This is the patient's initial encounter. Patient reports that signs and symptoms have been present for 2 days and indicates a pain score of 3/10. MEDICAL/SURGICAL HISTORY: . diabetes, hypertension . Cholecystectomy COMPARISON: No prior exams available for comparison. 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 There is some chronic hypertrophic gonzalez ge at the base of the second proximal phalanx at the second MTP joint. There is chronic hypertrophic change seen adjacent to the distal aspects of the fourth and fifth metatarsals. An area of acute bony destruction or periosteal reaction is not seen. Vascular calcifications are seen. There is a calcane al spur at the Achilles attachment site. CONCLUSION: Chronic change. Electronically signed by: Bautista Lester MD 05/23/2018 10:46 PM EST
--- NOTE | 2018-05-23 23:01 | ECHRPT ---
Indication: Sepsis Possible Endocarditis CONCLUSIONS Normal left ventricular size. Mild concentric left ventricular hypertrophy. The left ventricular systolic function is low normal with an estimated ejection fraction in the rang e of 50- 55%. Normal atrial septal thickness. There is trace tricuspid valve regurgitation. BP: 121 / 58 HR: 88 Rhythm: MEASUREMENTS (Male / Female) Normal Values Technical Quality:Technically difficult study 2D ECHO LV Diastolic Diameter PLAX 4.8 cm 4.2 - 5.9 / 3.9 - 5.3 cm LV Systolic Diameter PLAX 3.4 cm IVS Diastolic Thickness 1.2 cm 0.6 - 1.0 / 0.6 - 0.9 cm LVPW Diastolic Thickness 1.1 cm 0.6 - 1.0 / 0.6 - 0.9 cm LV Relative Wall Thickness 0.5 RV Internal Dim ED PLAX 4.0 cm LVOT Diameter 2.3 cm Aortic Root Diameter 3.4 cm LA Systolic Diameter LX 3.8 cm 3.0 - 4.0 / 2.7 - 3.8 cm M-MODE AV Cusp Separation MM 2.4 cm DOPPLER AV Peak Velocity 106.0 cm/s AV Peak Gradient 4.5 mmHg LVOT Peak Velocity 79.5 cm/s LVOT Peak Gradient 2.5 mmHg AV Area Cont Eq pk 3.1 cm Mitral E Point Velocity 68.6 cm/s Mitral A Point Velocity 81.4 cm/s Mitral E to A Ratio 0.8 LV E' Lateral Velocity 11.7 cm/s Mitral E to LV E' Lateral Ratio 5.9 LV E' Septal Velocity 6.1 cm/s Mitral E to LV E' Septal Ratio 11.2 TR Peak Velocity 285.0 cm/s TR Peak Gradient 32.5 mmHg Right Atrial Pressure 10.0 mmHg Pulmonary Artery Systolic Pressu 42.5 mmHg Right Ventricular Systolic Press 42.5 mmHg PV Peak Velocity 86.9 cm/s PV Peak Gradient 3.0 mmHg FINDINGS LEFT VENTRICLE Normal left ventricular size. Mild concentric left ventricular hypertrophy. The left ventricular systolic function is low normal with an estimated ejection fraction in the rang e of 50- 55%. RIGHT VENTRICLE Normal right ventricular size and systolic function. LEFT ATRIUM The left atrial size is normal. RIGHT ATRIUM The right atrial size is normal. ATRIAL SEPTUM Normal atrial septal thickness. AORTA The aortic root and proximal ascending aorta are normal in size on limited imaging. MITRAL VALVE Structurally normal mitral valve. AORTIC VALVE Trileaflet aortic valve. TRICUSPID VALVE There is trace tricuspid valve regurgitation. PULMONARY VALVE The pulmonary valve is not well visualized. VESSELS The inferior vena cava was not well visualized. PERICARDIUM No pericardial effusion. Henrry Gamez MD, FACC (Electronically Signed) Final Date:23 May 2018 23:00
[2018-05-24 06:08] LABS: Hematocrit 24.6 % (39.0-51.0); Hemoglobin 8.4 gm/dL (13.0-17.0); Mean Corpuscular HGB Conc 34.2 % (32.0-36.0); Mean Corpuscular Hemoglobin 32.7 pg (27.0-34.0); Mean Corpuscular Volume 95.6 fL (80.0-100.0); Mean Platelet Volume 8.7 fL (7.0-11.0); Platelet Count 106 th/mm3 (150-450); Red Blood Count 2.57 mil/mm3 (4.50-5.90); Red Cell Distribution Width 14.8 % (11.6-17.2); White Blood Count 4.5 th/mm3 (4.0-11.0)
[2018-05-24] MEDS: Chlorhexidine Gluconate 2% 1 Pack (2 Cloths) TOPICAL SCH (06:23)
[2018-05-24 06:37] LABS: Albumin 2.5 g/dL (3.4-5.0); Calcium 6.6 mg/dL (8.5-10.1); Carbon Dioxide 26.4 meq/L (21.0-32.0); Magnesium 2.1 mg/dL (1.5-2.5); Phosphorus 6.8 mg/dL (2.5-4.9); Potassium 4.1 meq/L (3.5-5.1); Total Protein 6.4 g/dL (6.4-8.2)
--- NOTE | 2018-05-24 07:11 | P.PNCC ---
Subjective Subjective Remarks/Hospital Course: 63yM [place] [facility] [place] [facility] [place] for sepsis. The patient presented to the ED via EMS yesterday for chest pain which he described as intermittent "discomfort", radiating to his left arm, similar to anginal-type pain he had in the past. The patient was admitted to [facility] service overnight for further evaluation of his chest pain, has had negative trop x 3, but again reported chest pain this morning around 8 AM. He had a CTA chest which was negative for PE. Throughout the course of the day, he has been noted to be confused, febrile to 103F, and developed redness and warmth to his left arm overlying the AVF. He is scheduled for HD today. [place] arrival [place] [facility] [place] was sleepy but arousable to loud voice/ tactile stimuli, is unable to provide any meaningful contribution to HPI during my exam. The patient was last admitted in February for chest pain and underwent PCI with stent to proximal obtuse marginal (maintained on chronic Brillinta/ aspirin) as well as dual chamber right-sided PPM for symptomatic bradycardia. Director Of Product Development is Dr. Rizo. He additionally has a PMH of ESRD on HD , last dialyzed 2 days ago, receives HD via LUE AV graft. 05/22: Patient dialyzed yesterday evening for potassium of 7.2, 3500 cc removed. Fever curve improved overnight. US duplex of LUE shows small fluid collections around distal end of graft. Aerobic and anaerobic blood cultures positive x 2 for GPCs in pairs and clusters. Mental status is much improved this morning as compared to yesterday. 05/23: No overnight events. Patient says "I just don't feel well". MRSA growing in blood cultures. No encephalopathy since admission. 05/24: Stable overnight, afebrile, scheduled for HD today. No new issues. Objective Vital Signs / I&O: Vital Signs 05/23/18 07:30 05/23/18 08:00 05/23/18 08:30 Temperature Pulse Rate 79 79 79 Respiratory Rate 11 L 16 18 Blood Pressure 119/53 L 109/51 L 109/52 L Pulse Oximetry 100 05/23/18 09:00 05/23/18 09:30 05/23/18 10:00 Temperature Pulse Rate 78 79 77 Respiratory Rate 16 14 19 Blood Pressure 113/53 L 118/57 L 120/58 L Pulse Oximetry 05/23/18 10:30 05/23/18 10:51 05/23/18 11:00 Temperature Pulse Rate 76 78 Respiratory Rate 8 L 14 15 Blood Pressure 120/56 L 116/58 L Pulse Oximetry 05/23/18 11:30 05/23/18 12:00 05/23/18 12:30 Temperature 100.5 F H Pulse Rate 78 78 78 Respiratory Rate 9 L 14 12 Blood Pressure 111/53 L 109/51 L 112/53 L Pulse Oximetry 05/23/18 13:00 05/23/18 13:30 05/23/18 14:00 Temperature Pulse Rate 83 90 87 Respiratory Rate 16 15 11 L Blood Pressure 117/56 L 126/56 L 130/56 L Pulse Oximetry 05/23/18 14:30 05/23/18 15:00 05/23/18 15:30 Temperature Pulse Rate 87 87 87 Respiratory Rate 10 L 11 L 18 Blood Pressure 116/52 L 119/56 L 121/58 L Pulse Oximetry 05/23/18 16:00 05/23/18 16:30 05/23/18 17:00 Temperature Pulse Rate 88 89 90 Respiratory Rate 15 13 17 Blood Pressure 126/56 L 128/61 134/60 Pulse Oximetry 05/23/18 17:30 05/23/18 18:00 05/23/18 18:30 Temperature Pulse Rate 91 H 93 H 92 H Respiratory Rate 15 24 23 Blood Pressure 152/65 H 151/70 H 166/72 H Pulse Oximetry 97 05/23/18 19:50 05/23/18 20:00 05/23/18 22:00 Temperature 98.5 F 99 F Pulse Rate 87 87 Respiratory Rate 13 14 Blood Pressure 168/70 H 160/59 H Pulse Oximetry 99 97 97 05/24/18 00:00 05/24/18 02:00 05/24/18 04:00 Temperature 99.0 F 99.0 F 99.0 F Pulse Rate 80 77 78 Respiratory Rate 11 L 12 13 Blood Pressure 140/63 151/65 H 152/67 H Pulse Oximetry 98 98 98 05/24/18 06:00 Temperature 99.0 F Pulse Rate 78 Respiratory Rate 15 Blood Pressure 147/63 H Pulse Oximetry 98 Intake & Output 05/23/18 05/24/18 05/24/18 18:59 06:59 18:59 Intake Total 100 / 100 Balance 100 / 100 Weight 134 kg Intake: IV 100 / 100 Zosyn 2.25 GM Premix 50 ML @ 100 / 100 100 mls/hr IV.SIG Q12H SKIP Rx#: [id number] Other: Date of Last Bowel Movement 05/20/18 05/20/18 Result Diagrams: 05/24/18 04:40 05/24/18 04:40 Objective Remarks: GEN: Awake and alert, no distress HEENT: NCAT, PERRL NECK: Trachea midline CARDIO: Regular rate and rhythm PULM: Clear to auscultation bilaterally ABD/GI: Obese, soft, non-tender in all quadrants EXT/MSK: AVF in LUE with palpable bruit, (+) thrill. Trace peripheral edema. SKIN: Unchanged from previous, no new rashes or lesions NEURO: AA&Ox3, answers all questions appropriately PSYCH: Calm, no agitation Assessment and Plan - Problem List (1) Hyperkalemia Code(s): E87.5 - Hyperkalemia Status: Acute (2) Encephalopathy acute Code(s): G93.40 - Encephalopathy, unspecified Status: Acute (3) DM (diabetes mellitus) Code(s): E11.9 - Type 2 diabetes mellitus without complications Status: Chronic (4) Chest pain Code(s): R07.9 - Chest pain, unspecified Status: Acute (5) Sepsis Code(s): A41.9 - Sepsis, unspecified organism Status: Acute (6) CAD (coronary artery disease) Code(s): I25.10 - Atherosclerotic heart disease of telida coronary artery without angina pectoris Status: Chronic (7) AV fistula Code(s): I77.0 - Arteriovenous fistula, acquired Status: Chronic (8) Gram-positive bacteremia Code(s): R78.81 - Bacteremia Status: Acute - Assessment and Plan Plan: 63yM with history of ESRD on HD, CAD s/p recent stents, bradycardia s/p AICD, now with sepsis and concern for cellulitis/ AVG infection NEURO: -Mental status at baseline, no deficits -Delirium precautions CARDIO: -BP control- continue home meds (can continue MARIBETH if OK with nephrology) -Continue Brilinta and ASA, continue statin RESP: -Incentive spirometer F/E/N: -Renal/ cardiac/ diabetic diet * Sodium 130, likely hypervolemic hyponatremia -HD today ID: -Concern for possible AVG infection vs cellulitis adjacent to AVG; duplex US shows small fluid collection at distal end of AVG, vascular recs appreciated -Podiatry following for chronic bilateral foot osteomyelitis, pending MRI -Patient on renally dosed vanco/ zosyn, hutton-cultures sent and pending -No pneumonia seen on CXR or CT scan, no UTI -Flu swab pending -MRSA bacteremia, ID following, repeat cultures negative at 1 day PROPHY: -SCDs, Brilinta -No indication for PPI OVERALL: Stable/ improving sepsis, resolved encephalopathy, acute on chronic renal disease back on regular HD schedule. Patient can be transferred to hospitalist service in AM. Level 2 follow up To help prompt me to consider important information that might be impacting today's encounter and assessment, information from prior notes written by myself or my colleagues may have been "brought forward" into today's note. My signature on this note, however, is an attestation that I personally performed the exam, history, and/or decision-making noted today, and, unless otherwise indicated, the interactions with patient, family, and staff as well as the review of records all occurred today. I also attest that the listed assessment and stated plan reflect my best clinical judgment today based on the combination of historical information, prior notes, and today's exam/ interactions. Code Status: Full
[2018-05-24] MEDS ORDERED: Calcium Gluconate Inj 2 GM in Dextrose 5% in Water Inj 100 ML IV.SIG ONE ×2 (07:15)
--- NOTE | 2018-05-24 07:16 | CT ---
EXAM DATE: 05/24/2018 12:55 AM EST AGE/SEX: 63 years / Male INDICATIONS: Peripheral vascular disease; abnormal arterial Doppler of left ankle. CLINICAL DATA: This is the patient's subsequent encounter. Patient reports that signs and symptoms h ave been present for 3 days and indicates a pain score of 0/10. MEDICAL/SURGICAL HISTORY: Diabetes. Cardiovascular disease. Renal disease, end stage. Dialysis p atient Cholecystectomy. Hip and knee replacement RADIATION DOSE: 9.66 CTDI (mGy) COMPARISON: No prior exams available for comparison. TECHNIQUE: Volumetric scanning was performed using a multi-row detector CT scanner during bolus infu helen of 100 ml Omnipaque 350 (iohexol) nonionic water-soluble contrast as a single exam dose. The data was post processed with a variety of visualization algorithms including full volume maximum inte nsity projection, multi-planar sliding thin slab reformation, curved planar reformation, and surface rendering techniques. Using automated exposure control and adjustment of the mA and/or kV according to patient size, radiation dose was kept as low as reasonably achievable to obtain optimal diagnostic quality images. DICOM format image data is available electronically for review and comparison. FINDINGS: AORTA: The abdominal aorta and inflow vessels are widely patent. The celiac, SMA, YASMINE, and renal faith delia are patent. RIGHT LOWER EXTREMITY: Diffuse calcified atheromatous plaque throughout the outflow and runoff vesse ls. No hemodynamically significant stenosis involving the outflow vessels. The heavily calcified natu re of the trifurcation vessels generates beam hardening artifact limiting their patency evaluation. T he posterior tibial artery is felt chronically occluded beginning at its origin. The patency of the a nterior tibial artery and peroneal artery cannot be confirmed. There is a dorsalis pedis contrast opa cification as well as opacification of the plantar vessels at least suggesting reconstitution if not straight line patency from the anterior tibial artery and peroneal artery. LEFT LOWER EXTREMITY: Diffuse calcified atheromatous plaque throughout the outflow and runoff vessel s. A left hip prosthesis and left knee prosthesis generates beam hardening artifact obscuring some of the vessels. This is most pronounced involving the popliteal artery. The visualized outflow vessels are patent. The trifurcation vessels are heavily calcified. This calcified nature generates beam hard ening artifact limiting their patency evaluation. 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 There is reconstitution of the plantar vessels. The anterior tibial artery and peroneal artery are difficult to ascertain whether there patent through their entirety. There are areas of contrast opacification suggesting at least reconstitution. No dorsalis pedis artery observe d. OTHER STRUCTURES: Soft tissue swelling involving the ankles bilaterally but more pronounced on the le ft. The kidneys are atrophic bilaterally. The spleen is enlarged measuring 17.6 cm. CONCLUSION: 1. Patent inflow and outflow bilaterally. 2. Heavily calcified trifurcation vessels limits their patency evaluation. On the right there is pos sible straight-line flow through the anterior tibial artery and peroneal artery. The posterior tibial artery is clearly occluded. On the left there is a similar appearance. 3. Atrophic kidneys. 4. Splenomegaly. Electronically signed by: Les Wallace MD 05/24/2018 7:15 AM EST
--- NOTE | 2018-05-24 08:00 | P.PNCA ---
Subjective Interval history: Looks well, still notes some atypical chest pain (sharp/pleuritic) Medications and Allergies Active Medications: Active Medications Acetaminophen (Tylenol) 650 mg PO Q4H PRN PRN Reason: Temp > 100.4 Last Admin: 05/21/18 08:42 Dose: 650 mg Acetaminophen (Tylenol) 650 mg PO UNSCH PRN PRN Reason: SEE LABEL COMMENTS Hydrocodone Bitart/Acetaminophen (Treece 5/325) 1 tab PO Q4H PRN PRN Reason: PAIN SCALE 3 TO 5 Last Admin: 05/23/18 09:17 Dose: 1 tab Amlodipine Besylate (Norvasc) 5 mg PO DAILY [facility] Last Admin: 05/23/18 09:17 Dose: 5 mg Aspirin (Aspirin Chew) 81 mg PO DAILY [facility] Last Admin: 05/23/18 09:17 Dose: 81 mg Atorvastatin Calcium (Lipitor) 20 mg PO HS [facility] Last Admin: 05/23/18 20:35 Dose: 20 mg Bisacodyl (Dulcolax Supp) 10 mg RECTAL DAILY PRN PRN Reason: SEVERE CONSITIPATION Chlorhexidine Gluconate (Chlorhexidine 2% Cloth) 3 pack TOPICAL DAILY@0400 [facility] Stop: 05/27/18 03:59 Last Admin: 05/24/18 06:23 Dose: 3 pack Chlorhexidine Gluconate (Chlorhexidine 2% Cloth) 3 pack TOPICAL DAILY@0400 PRN PRN Reason: Extra cloth needed Stop: 05/27/18 03:59 Clonidine HCl (Catapres) 0.1 mg PO UNSCH PRN PRN Reason: SEE LABEL COMMENTS Dextrose (D50w Vial) 50 ml IV.PUSH UNSCH PRN PRN Reason: PER HYPOGLYCEMIA PROTOCOL Diphenhydramine HCl (Benadryl) 25 mg PO UNSCH PRN PRN Reason: SEE LABEL COMMENTS Epoetin Stefano (Epogen Inj) 6,000 unit IV.PUSH UNSCH PRN PRN Reason: SEE LABEL COMMENTS Last Admin: 05/21/18 20:35 Dose: 6,000 unit Gabapentin (Neurontin) 300 mg PO BID [facility] Last Admin: 05/23/18 20:35 Dose: 300 mg Gelatin (Gelfoam 12 Mm/7 Mm Topical) 1 foam TOPICAL PRN PRN PRN Reason: help stop bleeding from site Gentamicin Sulfate (Gentamicin Inj) 20 mg OTHER WITH DIALYSIS PRN PRN Reason: Dwell Gentamycin Lock Glucagon (Glucagon Inj) 1 mg OTHER PRN PRN PRN Reason: for Hypoglycemia Protocol Heparin Sodium (Porcine) (Heparin Inj) 8,000 units OTHER WITH DIALYSIS PRN PRN Reason: for machine prime Heparin Sodium (Porcine) (Heparin Inj) 1,000 units OTHER WITH DIALYSIS PRN PRN Reason: Dwell Heparin to Fill Catheter Hydralazine HCl (Apresoline Inj) 20 mg IV.PUSH Q4H PRN PRN Reason: SBP> OR = 180, DBP> OR = 100 Last Admin: 05/22/18 00:41 Dose: 20 mg Piperacillin/Tazobactam/Dextrose (Zosyn 2.25 Gm Premix) 50 mls @ 100 mls/hr IV.SIG Q12H SKIP Last Infusion: 05/24/18 01:33 Dose: Infused Albumin Human (Flexbumin 25% Inj) 100 mls @ 60 mls/hr IV.SIG WITH DIALYSIS PRN PRN Reason: hypotension / volume replace Sodium Chloride (Ns Inj) 1,000 mls @ 0 mls/hr OTHER .Q0M PRN PRN Reason: for prime and rinse back Sodium Chloride (Ns Inj) 1,000 mls @ 200 mls/hr OTHER .Q5H PRN PRN Reason: for dialyzer flush PRN Sodium Chloride (Ns Inj) 1,000 mls @ 0 mls/hr IV.CONT .Q0M PRN PRN Reason: hypotension / volume replace Acetaminophen (Ofirmev Inj) 1,000 mg in 100 mls @ 300 mls/hr IV.SIG Q6H PRN PRN Reason: FEVER Last Infusion: 05/21/18 17:00 Dose: Infused Vancomycin HCl 1,000 mg/ (Sodium Chloride) 250 mls @ 250 mls/hr IV.SIG WITH DIALYSIS SKIP Calcium Gluconate 2 gm/ (Dextrose) 120 mls @ 120 mls/hr IV.SIG ONCE ONE Stop: 05/24/18 08:14 Insulin Aspart (Novolog Insulin Correctional Sugar Inj) 0 unit SQ ACHS SKIP; Protocol Last Admin: 05/23/18 20:53 Dose: 3 unit Labetalol HCl (Trandate Inj) 10 mg IV.PUSH Q4H PRN PRN Reason: SBP>180, DBP>100, HR>65 Lactulose (Lactulose Liq) 30 ml PO DAILY PRN PRN Reason: SEVERE CONSITIPATION Mannitol (Mannitol Inj) 12.5 gm IV.PUSH UNSCH PRN PRN Reason: hypotension / volume replace Methocarbamol (Robaxin) 500 mg PO QID [facility] Last Admin: 05/23/18 20:34 Dose: 500 mg Metoprolol Tartrate (Lopressor) 25 mg PO BID [facility] Last Admin: 05/23/18 20:34 Dose: 25 mg Morphine Sulfate (Morphine Inj) 2 mg IV.PUSH Q3H PRN PRN Reason: PAIN 6-10 Last Admin: 05/23/18 20:37 Dose: 2 mg Nitroglycerin (Nitro-Bid 2% Oint) 1 inch TOPICAL Q6HR [facility] Last Admin: 05/24/18 06:24 Dose: 1 inch Nitroglycerin (Nitrostat Sl) 0.4 mg SL Q5M PRN PRN Reason: CHEST PAIN Ondansetron HCl (Zofran Inj) 4 mg IV.PUSH Q6H PRN PRN Reason: NAUSEA OR VOMITING Ondansetron HCl (Zofran Inj) 4 mg IV.PUSH UNSCH PRN PRN Reason: NAUSEA OR VOMITING Phenytoin Sodium (Dilantin) 200 mg PO BID [facility] Last Admin: 05/23/18 20:35 Dose: 200 mg Senna/Docusate Sodium (Winifred-Colace) 1 tab PO BID [facility] Last Admin: 05/23/18 20:35 Dose: 1 tab Sennosides (Senokot) 17.2 mg PO Q12H PRN PRN Reason: Moderate Constipation Sodium Chloride (Ns Flush) 2 ml IV.FLUSH BID [facility] Last Admin: 05/23/18 20:54 Dose: 2 ml Sodium Chloride (Ns Flush) 2 ml IV.FLUSH PRN PRN PRN Reason: FLUSH AFTER USING IV ACCESS Sodium Chloride (Ns Flush) 5 ml IV.FLUSH PRN PRN PRN Reason: flush each lumen during HD Ticagrelor (Brilinta) 90 mg PO BID [facility] Last Admin: 05/23/18 20:35 Dose: 90 mg Allergies Allergy/AdvReac Type Severity Reaction Status Date / Time *MDRO Multi-Drug Resistant AdvReac Intermediate Abdominal Uncoded 05/21/18 00:22 Organism Pain Home Medications Medication Instructions Recorded Confirmed Type aspirin 81 mg PO DAILY 02/20/18 05/21/18 History enalapril maleate 5 mg PO DAILY 02/20/18 05/21/18 History gabapentin 300 mg PO BID 02/20/18 05/21/18 History lisinopril 10 mg PO DAILY 02/20/18 05/21/18 History metoclopramide HCl 5 mg PO TID 02/20/18 05/21/18 History phenytoin sodium extended 200 mg PO BID 02/20/18 05/21/18 History [Phenytek] insulin detemir U-100 [Levemir 34 units SUB-Q DAILY 03/15/18 05/21/18 History U-100 Insulin] Physical Exam Vital signs: Vital Signs 05/23/18 08:00 05/23/18 08:30 05/23/18 09:00 Temperature Pulse Rate 79 79 78 Respiratory Rate 16 18 16 Blood Pressure 109/51 L 109/52 L 113/53 L Pulse Oximetry 100 05/23/18 09:30 05/23/18 10:00 05/23/18 10:30 Temperature Pulse Rate 79 77 76 Respiratory Rate 14 19 8 L Blood Pressure 118/57 L 120/58 L 120/56 L Pulse Oximetry 05/23/18 10:51 05/23/18 11:00 05/23/18 11:30 Temperature Pulse Rate 78 78 Respiratory Rate 14 15 9 L Blood Pressure 116/58 L 111/53 L Pulse Oximetry 05/23/18 12:00 05/23/18 12:30 05/23/18 13:00 Temperature 100.5 F H Pulse Rate 78 78 83 Respiratory Rate 14 12 16 Blood Pressure 109/51 L 112/53 L 117/56 L Pulse Oximetry 05/23/18 13:30 05/23/18 14:00 05/23/18 14:30 Temperature Pulse Rate 90 87 87 Respiratory Rate 15 11 L 10 L Blood Pressure 126/56 L 130/56 L 116/52 L Pulse Oximetry 05/23/18 15:00 05/23/18 15:30 05/23/18 16:00 Temperature Pulse Rate 87 87 88 Respiratory Rate 11 L 18 15 Blood Pressure 119/56 L 121/58 L 126/56 L Pulse Oximetry 05/23/18 16:30 05/23/18 17:00 05/23/18 17:30 Temperature Pulse Rate 89 90 91 H Respiratory Rate 13 17 15 Blood Pressure 128/61 134/60 152/65 H Pulse Oximetry 05/23/18 18:00 05/23/18 18:30 05/23/18 19:50 Temperature Pulse Rate 93 H 92 H Respiratory Rate 24 23 Blood Pressure 151/70 H 166/72 H Pulse Oximetry 97 99 05/23/18 20:00 05/23/18 22:00 05/24/18 00:00 Temperature 98.5 F 99 F 99.0 F Pulse Rate 87 87 80 Respiratory Rate 13 14 11 L Blood Pressure 168/70 H 160/59 H 140/63 Pulse Oximetry 97 97 98 05/24/18 02:00 05/24/18 04:00 05/24/18 06:00 Temperature 99.0 F 99.0 F 99.0 F Pulse Rate 77 78 78 Respiratory Rate 12 13 15 Blood Pressure 151/65 H 152/67 H 147/63 H Pulse Oximetry 98 98 98 05/24/18 07:00 Temperature Pulse Rate 77 Respiratory Rate Blood Pressure Pulse Oximetry Intake & Output 05/23/18 05/24/18 05/24/18 18:59 06:59 18:59 Intake Total 200 / 200 100 / 100 Output Total 0 / 0 0 / 0 Balance 200 / 200 100 / 100 Weight 134 kg Intake: IV 100 / 100 Zosyn 2.25 GM Premix 50 ML @ 100 / 100 100 mls/hr IV.SIG Q12H [facility] Rx#: [id number] Oral 100 / 100 100 / 100 Output: Urine 0 / 0 0 / 0 Stool 0 / 0 0 / 0 Urine/Stool Mix 0 / 0 0 / 0 Other: Date of Last Bowel Movement 05/20/18 05/20/18 # Bowel Movements 0 0 # Incontinent Bowel Movements 0 0 - Constitutional no acute distress - Routine HEENT Exam Head: Present: normocephalic Eye: Present: EOMI ENT: Present: mucous membranes moist - Routine Neck Exam Present: supple - Routine Respiratory Exam Present: CTA bilaterally. Absent: accessory muscle use - Routine Cardiovascular Exam Present: RRR - Routine Abdominal Exam Present: soft - Routine Extremities Exam Absent: edema Results 05/24/18 04:40 05/24/18 04:40 Cardiac Enzymes 05/23/18 05/24/18 Range/Units 09:16 04:40 AST 141 H 89 H (15-37) U/L CBC 05/23/18 05/24/18 Range/Units 09:16 04:40 WBC 5.0 4.5 (4.0-11.0) th/mm3 RBC 3.00 L 2.57 L (4.50-5.90) mil/mm3 Hgb 10.0 L 8.4 L (13.0-17.0) gm/dL Hct 28.8 L 24.6 L (39.0-51.0) % Plt Count 111 L 106 L (150-450) th/mm3 Neut # (Auto) 2.8 (1.8-7.7) th/mm3 Lymph # (Auto) 0.5 L (1.0-4.8) th/mm3 [place] # (Auto) 1.5 H (0.0-0.9) th/mm3 Eos # (Auto) 0.1 (0.0-0.4) th/mm3 Baso # (Auto) 0.0 (0.0-0.2) th/mm3 Comprehensive Metabolic Panel 05/23/18 05/24/18 Range/Units 09:16 04:40 Sodium 129 L 130 L (136-145) meq/L Potassium 4.4 4.1 (3.5-5.1) meq/L Chloride 93 L 91 L (98-107) meq/L Carbon Dioxide 24.3 26.4 (21.0-32.0) meq/L BUN 67 H 76 H (7-18) mg/dL Creatinine 6.03 H 7.28 H (0.60-1.30) mg/dL Calcium 6.9 L* 6.6 L* (8.5-10.1) mg/dL AST 141 H 89 H (15-37) U/L ALT 91 H 69 (12-78) U/L Alkaline Phosphatase 130 H 134 H (45-117) U/L Total Protein 6.4 D 6.4 (6.4-8.2) g/dL Albumin 2.6 L 2.5 L (3.4-5.0) g/dL Intake and Output 05/23/18 05/24/18 05/24/18 22:59 06:59 14:59 Intake Total 100 / 100 100 / 100 100 / 100 Output Total 0 / 0 0 / 0 Balance 100 / 100 100 / 100 100 / 100 Intake: IV 100 / 100 Zosyn 2.25 GM Premix 50 ML @ 100 / 100 100 mls/hr IV.SIG Q12H [facility] Rx#: [id number] Oral 100 / 100 100 / 100 Output: Urine 0 / 0 0 / 0 Stool 0 / 0 0 / 0 Urine/Stool Mix 0 / 0 0 / 0 Other: Date of Last Bowel Movement 05/20/18 05/20/18 # Bowel Movements 0 0 # Incontinent Bowel Movements 0 0 Weight 134 kg - Imaging and Cardiology Imaging: Impressions Extremity Arterial Study 05/22/18 00:00 CONCLUSION: 1. There is significant decrease in the ankle-brachial index on the right suggesting severe peripheral vascular disease. The left ankle-brachial index could not be obtained, but the toe brachial index on the left is significantly decreased suggesting severe peripheral vascular disease on the left also. Head CT 05/22/18 00:00 CONCLUSION: 1. Negative CT Head non contrast. . Lower Extremity Ultrasound 05/22/18 00:00 CONCLUSION: 1. Saphenous vein mapping/measurements as described above. Venous Doppler Study 05/22/18 00:00 CONCLUSION: 1. The study is negative for bilateral lower extremity deep venous thrombosis. Aorta w/Runoff CTA 05/23/18 00:00 CONCLUSION: 1. Patent inflow and outflow bilaterally. 2. Heavily calcified trifurcation vessels limits their patency evaluation. On the right there is possible straight-line flow through the anterior tibial artery and peroneal artery. The posterior tibial artery is clearly occluded. On the left there is a similar appearance. 3. Atrophic kidneys. 4. Splenomegaly. Foot X-Ray 05/23/18 00:00 CONCLUSION: Right bony change as described above. Ulcer seen adjacent to the distal aspect of first metatarsal. Foot X-Ray 05/23/18 00:00 CONCLUSION: Chronic change. Venous Doppler Study 05/23/18 00:00 CONCLUSION: No evidence of deep venous thrombosis. Assessment and Plan - Assessment (1) Fever Code(s): R50.9 - Fever, unspecified Status: Acute Plan: MRSA bacteremia; ID on board; seems to have several potential sources, so not sure if ANANT necessary since TTE didn't show any significant valvular regurg/ or any veg; if ID requests I will perform (2) CAD (coronary artery disease) Code(s): I25.10 - Atherosclerotic heart disease of [place] coronary artery without angina pectoris Status: Chronic Plan: w/ atypical chest pain, nonspecific trop elev. in setting of ESRD, will plan on medical mgt at this point as his continuous sx seem unlikely to be cardiac at this point, but will order another trop. - Plan chest pain; vague part of essentially total body pain, worse abdm; trop increased slightly in ESRD so very nonspecific; given fevers and no clear cardiac sx would continue medical mgt for now (1) Fever Qualifiers: Fever type: unspecified Qualified Code(s): R50.9 - Fever, unspecified
[2018-05-24 08:14] LABS: Lymphocytes 11 % (9-44); Monocytes 5 % (0-8); Ovalocytes 1+; Platelet Morphology Normal (Normal)
[2018-05-24] MEDS: Insulin NovoLOG Aspart Correctional Sugar Inj SQ SCH ×4 (08:39→20:34)
[2018-05-24] MEDS: Gabapentin 300 MG Capsule PO SCH ×2 (08:40→20:17)
[2018-05-24] MEDS: Morphine Sulfate Inj 2 MG/ML Vial IV.PUSH PRN ×3 (08:40→20:18)
[2018-05-24] MEDS: Sodium Chloride 0.9% 2 ML Flush BID IV.FLUSH SCH ×2 (08:40→20:17)
[2018-05-24] MEDS: Methocarbamol 500 MG Tablet PO SCH ×4 (08:40→20:16)
--- NOTE | 2018-05-24 09:07 | US ---
EXAM DATE: 05/23/2018 11:05 AM EST AGE/SEX: 63 years / Male INDICATIONS: AVF planning. CLINICAL DATA: This is the patient's subsequent encounter. Patient reports that signs and symptoms h ave been present for 1 day and indicates a pain score of 6/10. MEDICAL/SURGICAL HISTORY: . Diabetes. Seizures. End stage renal disease. Neuropathy. . AV fist oj. CAD. Cholecystectomy. Bilateral knee joint replacements. COMPARISON: [facility] – [place] VENOUS DOPPLER ARM BI, 05/23/2018. . MEASUREMENTS: RIGHT: CEPHALIC: Origin:__4 mm Mid-Arm:__1 mm Elbow:__2 mm Forearm:__1 mm Wrist:__Non-visualized BASILIC: Origin:__3 mm Mid-Arm:__2 mm Elbow:__3 mm ARTERIES: Brachial:__4 mm Ulnar:__2 mm Radial:__1 mm VEINS: Radial:__2 mm Ulnar:__1 mm LEFT: CEPHALIC: Origin:__2 mm Mid-Arm:__3 mm Elbow:__2 mm Forearm:__2 mm Wrist:__Non-visualized BASILIC: Origin:__Non-visualized Mid-Arm:__Non-visualized Elbow:__Non-visualized ARTERIES: Brachial:__4 mm Ulnar:__1 mm Radial:__3 mm VEINS: Radial:__2 mm Ulnar:__1 mm FINDINGS: The venous system of the upper extremities are patent by color Doppler imaging. Measurements of the arm veins (in mm) are listed above. CONCLUSION: 1. Venous mapping as detailed above. Electronically signed by: Les Wallace MD 05/23/2018 11:26 AM EST
--- NOTE | 2018-05-24 09:44 | P.PNNP ---
Subjective Interval history: Seen during hemodialysis tolerating well. Reports that he still not feeling well , chest and left arm pain. <Christa Velasquez - Last Filed: 05/24/18 15:37> Physical Exam Vital signs: Vital Signs 05/23/18 10:00 05/23/18 10:30 05/23/18 10:51 Temperature Pulse Rate 77 76 Respiratory Rate 19 8 L 14 Blood Pressure 120/58 L 120/56 L Pulse Oximetry 05/23/18 11:00 05/23/18 11:30 05/23/18 12:00 Temperature 100.5 F H Pulse Rate 78 78 78 Respiratory Rate 15 9 L 14 Blood Pressure 116/58 L 111/53 L 109/51 L Pulse Oximetry 05/23/18 12:30 05/23/18 13:00 05/23/18 13:30 Temperature Pulse Rate 78 83 90 Respiratory Rate 12 16 15 Blood Pressure 112/53 L 117/56 L 126/56 L Pulse Oximetry 05/23/18 14:00 05/23/18 14:30 05/23/18 15:00 Temperature Pulse Rate 87 87 87 Respiratory Rate 11 L 10 L 11 L Blood Pressure 130/56 L 116/52 L 119/56 L Pulse Oximetry 05/23/18 15:30 05/23/18 16:00 05/23/18 16:30 Temperature Pulse Rate 87 88 89 Respiratory Rate 18 15 13 Blood Pressure 121/58 L 126/56 L 128/61 Pulse Oximetry 05/23/18 17:00 05/23/18 17:30 05/23/18 18:00 Temperature Pulse Rate 90 91 H 93 H Respiratory Rate 17 15 24 Blood Pressure 134/60 152/65 H 151/70 H Pulse Oximetry 05/23/18 18:30 05/23/18 19:00 05/23/18 19:30 Temperature Pulse Rate 92 H 86 86 Respiratory Rate 23 11 L 11 L Blood Pressure 166/72 H 156/66 H 160/65 H Pulse Oximetry 97 98 97 05/23/18 19:50 05/23/18 20:00 05/23/18 20:30 Temperature 98.5 F Pulse Rate 87 87 Respiratory Rate 13 12 Blood Pressure 167/70 H 173/72 H Pulse Oximetry 99 77 L 99 05/23/18 21:00 05/23/18 21:30 05/23/18 22:00 Temperature 99 F Pulse Rate 87 85 87 Respiratory Rate 16 14 14 Blood Pressure 169/67 H 160/59 H 160/59 H Pulse Oximetry 92 L 97 97 05/23/18 23:00 05/23/18 23:30 05/24/18 00:00 Temperature 99.0 F Pulse Rate 81 80 80 Respiratory Rate 9 L 13 11 L Blood Pressure 144/63 H 154/63 H 140/63 Pulse Oximetry 98 98 99 05/24/18 00:30 05/24/18 01:00 05/24/18 01:30 Temperature Pulse Rate 79 77 88 Respiratory Rate 17 16 19 Blood Pressure 147/63 H 142/60 H 153/67 H Pulse Oximetry 99 99 98 05/24/18 02:00 05/24/18 02:30 05/24/18 03:00 Temperature 99.0 F Pulse Rate 77 77 77 Respiratory Rate 12 20 14 Blood Pressure 151/65 H 151/66 H 153/68 H Pulse Oximetry 98 98 98 05/24/18 03:30 05/24/18 04:00 05/24/18 04:30 Temperature 99.0 F Pulse Rate 77 78 78 Respiratory Rate 12 13 13 Blood Pressure 159/67 H 152/67 H 149/66 H Pulse Oximetry 98 98 98 05/24/18 05:00 05/24/18 06:00 05/24/18 06:30 Temperature 99.0 F Pulse Rate 78 78 78 Respiratory Rate 22 16 14 Blood Pressure 153/67 H 147/63 H 152/65 H Pulse Oximetry 98 92 L 93 L 05/24/18 07:00 05/24/18 07:30 05/24/18 08:00 Temperature 98.9 F Pulse Rate 77 78 76 Respiratory Rate 14 15 18 Blood Pressure 144/63 H 144/63 H 139/58 L Pulse Oximetry 94 L 100 99 05/24/18 09:36 Temperature Pulse Rate Respiratory Rate Blood Pressure Pulse Oximetry 99 Intake & Output 05/23/18 05/24/18 05/24/18 18:59 06:59 18:59 Intake Total 200 / 200 100 / 100 Output Total 0 / 0 0 / 0 Balance 200 / 200 100 / 100 Weight 134 kg Intake: IV 100 / 100 Zosyn 2.25 GM Premix 50 ML @ 100 / 100 100 mls/hr IV.SIG Q12H [facility] Rx#: [id number] Oral 100 / 100 100 / 100 Output: Urine 0 / 0 0 / 0 Stool 0 / 0 0 / 0 Urine/Stool Mix 0 / 0 0 / 0 Other: Date of Last Bowel Movement 05/20/18 05/20/18 # Bowel Movements 0 0 # Incontinent Bowel Movements 0 0 Narrative: GEN: Chronically ill-appearing, not in distress. CARDIO: Rapid, irregular PULM: Diminished breath sounds at bases bilaterally ABD/GI: Obese, soft, non-tender in all quadrants EXT/MSK: AVF in LUE with palpable bruit, (+) thrill, surrounding erythema and warmth, blanchable, no blisters or crepitus, minimal tenderness. Multiple previous toe amputations. Multiple scaling crusting chronic-appearing sores to bilateral lower legs. Trace peripheral edema. NEURO: Alert, oriented times 2, not in distress. <Christa Velasquez - Last Filed: 05/24/18 15:37> Vital signs: Vital Signs 05/25/18 21:00 05/25/18 21:21 05/25/18 22:00 Temperature Pulse Rate 79 81 78 Respiratory Rate 15 14 17 Blood Pressure 190/79 H 193/79 H 193/78 H Pulse Oximetry 98 98 98 05/25/18 23:00 05/26/18 00:00 05/26/18 01:00 Temperature 99.0 F Pulse Rate 72 77 74 Respiratory Rate 17 17 19 Blood Pressure 162/67 H 165/67 H 167/71 H Pulse Oximetry 97 96 97 05/26/18 02:00 05/26/18 03:00 05/26/18 04:00 Temperature 98.3 F Pulse Rate 75 76 73 Respiratory Rate 14 14 12 Blood Pressure 166/70 H 165/71 H 183/77 H Pulse Oximetry 97 92 L 98 05/26/18 05:00 05/26/18 06:00 05/26/18 07:00 Temperature Pulse Rate 73 72 72 Respiratory Rate 22 12 14 Blood Pressure 173/73 H 175/72 H 180/77 H Pulse Oximetry 96 97 93 L 05/26/18 08:00 05/26/18 08:05 05/26/18 08:44 Temperature 98.7 F Pulse Rate 72 75 Respiratory Rate 12 22 Blood Pressure 186/76 H 183/74 H Pulse Oximetry 96 99 95 05/26/18 09:00 05/26/18 09:01 05/26/18 10:00 Temperature Pulse Rate 75 75 72 Respiratory Rate 28 H 17 17 Blood Pressure 190/78 H 185/78 H Pulse Oximetry 99 98 96 05/26/18 12:00 05/26/18 16:00 05/26/18 19:40 Temperature 97.8 F 97.2 F L Pulse Rate 74 67 Respiratory Rate 18 18 Blood Pressure 152/67 H 152/68 H Pulse Oximetry 97 94 L 96 Intake & Output 05/26/18 05/26/18 05/27/18 06:59 18:59 06:59 Intake Total 110 / 110 50 / 50 Output Total 40 / 40 Balance 70 / 70 50 / 50 Weight 130 kg Intake: IV 50 / 50 50 / 50 Zosyn 2.25 GM Premix 50 ML @ 50 / 50 50 / 50 100 mls/hr IV.SIG Q12H [facility] Rx#: [id number] Oral 60 / 60 Output: Urine 40 / 40 Stool 0 / 0 Urine/Stool Mix 0 / 0 Other: Date of Last Bowel Movement 05/24/18 05/24/18 # Bowel Movements 0 # Incontinent Bowel Movements 0 <Moni Alvarado - Last Filed: 05/26/18 20:51> Assessment and Plan - Assessment (1) ESRD (end stage renal disease) on dialysis Code(s): N18.6 - End stage renal disease; Z99.2 - Dependence on renal dialysis Status: Acute Plan: Patient with end stage renal disease on HD TTS. Epogen with dialysis. Hypocalcemia, replacement given, oral added Pt w/ a Left Upper Extremity ArterioVenous Graft given the bacteremia, this may need to be excised Hemodialysis today, UF of 3 liters, 2 K bath (2) DM (diabetes mellitus) Code(s): E11.9 - Type 2 diabetes mellitus without complications Status: Chronic Plan: Recommend to maintain blood sugars between 140 mg/dl to 180 mg/dl while hospitalized. (3) Anemia Code(s): D64.9 - Anemia, unspecified Status: Acute Plan: Epogen ordered with dialysis. HGB 8.4 (4) Sepsis Code(s): A41.9 - Sepsis, unspecified organism Status: Acute Plan: Blood cultures positive for MRSA. Antibiotics per ID recommendations. <Christa Velasquez - Last Filed: 05/24/18 15:37> - Assessment (1) ESRD (end stage renal disease) on dialysis Code(s): N18.6 - End stage renal disease; Z99.2 - Dependence on renal dialysis Status: Acute Plan: Patient seen and examined, agree with above. HD will be in AM again due to holiday. Angiogram noted. Follow the Hgb. (2) DM (diabetes mellitus) Code(s): E11.9 - Type 2 diabetes mellitus without complications Status: Chronic (3) Anemia Code(s): D64.9 - Anemia, unspecified Status: Acute (4) Sepsis Code(s): A41.9 - Sepsis, unspecified organism Status: Acute <Moni Alvarado - Last Filed: 05/26/18 20:51>
[2018-05-24] MEDS: Calcitriol 0.25 MCG Capsule PO SCH (12:14)
[2018-05-24] MEDS: amLODIPine 5 MG Tablet PO SCH (12:14)
[2018-05-24] MEDS: Metoprolol Tartrate 25 MG Tablet PO SCH ×2 (12:14→20:17)
[2018-05-24] MEDS: Phenytoin Sodium 100 MG Capsule PO SCH ×2 (12:15→20:16)
[2018-05-24] MEDS: Senna/Docusate Sodium 8.6/50 MG Tablet PO SCH ×2 (12:15→20:17)
--- NOTE | 2018-05-24 12:36 | P.PNVS ---
Subjective Subjective/Hospital Course: Pt w/o complaints Received any modality Objective Vital Signs / I&O: Vital Signs 05/23/18 12:30 05/23/18 13:00 05/23/18 13:30 Temperature Pulse Rate 78 83 90 Respiratory Rate 12 16 15 Blood Pressure 112/53 L 117/56 L 126/56 L Pulse Oximetry 05/23/18 14:00 05/23/18 14:30 05/23/18 15:00 Temperature Pulse Rate 87 87 87 Respiratory Rate 11 L 10 L 11 L Blood Pressure 130/56 L 116/52 L 119/56 L Pulse Oximetry 05/23/18 15:30 05/23/18 16:00 05/23/18 16:30 Temperature Pulse Rate 87 88 89 Respiratory Rate 18 15 13 Blood Pressure 121/58 L 126/56 L 128/61 Pulse Oximetry 05/23/18 17:00 05/23/18 17:30 05/23/18 18:00 Temperature Pulse Rate 90 91 H 93 H Respiratory Rate 17 15 24 Blood Pressure 134/60 152/65 H 151/70 H Pulse Oximetry 05/23/18 18:30 05/23/18 19:00 05/23/18 19:30 Temperature Pulse Rate 92 H 86 86 Respiratory Rate 23 11 L 11 L Blood Pressure 166/72 H 156/66 H 160/65 H Pulse Oximetry 97 98 97 05/23/18 19:50 05/23/18 20:00 05/23/18 20:30 Temperature 98.5 F Pulse Rate 87 87 Respiratory Rate 13 12 Blood Pressure 167/70 H 173/72 H Pulse Oximetry 99 77 L 99 05/23/18 21:00 05/23/18 21:30 05/23/18 22:00 Temperature 99 F Pulse Rate 87 85 87 Respiratory Rate 16 14 14 Blood Pressure 169/67 H 160/59 H 160/59 H Pulse Oximetry 92 L 97 97 05/23/18 23:00 05/23/18 23:30 05/24/18 00:00 Temperature 99.0 F Pulse Rate 81 80 80 Respiratory Rate 9 L 13 11 L Blood Pressure 144/63 H 154/63 H 140/63 Pulse Oximetry 98 98 99 05/24/18 00:30 05/24/18 01:00 05/24/18 01:30 Temperature Pulse Rate 79 77 88 Respiratory Rate 17 16 19 Blood Pressure 147/63 H 142/60 H 153/67 H Pulse Oximetry 99 99 98 05/24/18 02:00 05/24/18 02:30 05/24/18 03:00 Temperature 99.0 F Pulse Rate 77 77 77 Respiratory Rate 12 20 14 Blood Pressure 151/65 H 151/66 H 153/68 H Pulse Oximetry 98 98 98 05/24/18 03:30 05/24/18 04:00 05/24/18 04:30 Temperature 99.0 F Pulse Rate 77 78 78 Respiratory Rate 12 13 13 Blood Pressure 159/67 H 152/67 H 149/66 H Pulse Oximetry 98 98 98 05/24/18 05:00 05/24/18 06:00 05/24/18 06:30 Temperature 99.0 F Pulse Rate 78 78 78 Respiratory Rate 22 16 14 Blood Pressure 153/67 H 147/63 H 152/65 H Pulse Oximetry 98 92 L 93 L 05/24/18 07:00 05/24/18 07:30 05/24/18 08:00 Temperature 98.9 F Pulse Rate 77 78 75 Respiratory Rate 14 15 18 Blood Pressure 144/63 H 144/63 H 139/58 L Pulse Oximetry 94 L 100 99 05/24/18 08:30 05/24/18 08:45 05/24/18 09:00 Temperature Pulse Rate 74 77 75 Respiratory Rate 12 17 14 Blood Pressure 139/61 145/64 H 147/61 H Pulse Oximetry 100 100 100 05/24/18 09:15 05/24/18 09:30 05/24/18 09:36 Temperature Pulse Rate 75 74 Respiratory Rate 12 12 Blood Pressure 139/60 161/58 H Pulse Oximetry 100 100 99 05/24/18 09:46 05/24/18 10:00 05/24/18 10:15 Temperature Pulse Rate 75 77 77 Respiratory Rate 14 13 12 Blood Pressure 151/62 H 159/65 H 156/63 H Pulse Oximetry 100 100 100 05/24/18 10:30 Temperature Pulse Rate 75 Respiratory Rate 13 Blood Pressure 150/65 H Pulse Oximetry 100 Intake & Output 05/23/18 05/24/18 05/24/18 18:59 06:59 18:59 Intake Total 200 / 200 580 / 580 Output Total 0 / 0 3000 / 3000 Balance 200 / 200 -2420 / -2420 Weight 134 kg Intake: IV 100 / 100 480 / 480 Calcium Gluconate Inj 2 GM In 120 / 120 D5W Inj 100 ML @ 120 mls/hr IV. SIG ONCE ONE Rx#:[id number] Zosyn 2.25 GM Premix 50 ML @ 100 / 100 100 mls/hr IV.SIG Q12H [facility] Rx#: [id number] Oral 100 / 100 100 / 100 Output: Urine 0 / 0 0 / 0 Stool 0 / 0 0 / 0 Urine/Stool Mix 0 / 0 0 / 0 Hemodialysis Amount 3000 / 3000 Other: Date of Last Bowel Movement 05/20/18 05/20/18 05/20/18 # Bowel Movements 0 0 # Incontinent Bowel Movements 0 0 Physical Exam: Left heal wound with purulent discharge Left upper extremity grafts with good thrill, no signs of infection. Monophasic pedal signals bilaterally Laboratory Results - last 24 hr 05/23/18 05/23/18 05/23/18 12:42 17:43 20:25 WBC RBC Hgb Hct MCV MCH MCHC RDW Plt Count MPV Prelim Diff (Auto) WBC Differential Seg Neuts % (Manual) Band Neuts % (Manual) Lymphocytes % (Manual) Monocytes % (Manual) Abs Neuts (Manual) Differential Comment Platelet Estimate Platelet Morphology Ovalocytes Sodium Potassium Chloride Carbon Dioxide Anion Gap BUN Creatinine Estimated GFR POC Glucose 139 H 166 H 231 H Random Glucose Calcium Prot Corrected Calcium Phosphorus Magnesium Total Bilirubin AST ALT Alkaline Phosphatase Troponin I Total Protein Albumin 05/24/18 05/24/18 05/24/18 04:40 04:40 09:38 WBC 4.5 RBC 2.57 L Hgb 8.4 L Hct 24.6 L MCV 95.6 MCH 32.7 MCHC 34.2 RDW 14.8 Plt Count 106 L MPV 8.7 Prelim Diff (Auto) Manual diff required WBC Differential Manual diff final Seg Neuts % (Manual) 56 Band Neuts % (Manual) 28 H Lymphocytes % (Manual) 11 Monocytes % (Manual) 5 Abs Neuts (Manual) 3.8 Differential Comment . Platelet Estimate Low L Platelet Morphology Normal Ovalocytes 1+ H Sodium 130 L Potassium 4.1 Chloride 91 L Carbon Dioxide 26.4 Anion Gap 13 BUN 76 H Creatinine 7.28 H Estimated GFR 8 L POC Glucose Random Glucose 163 H Calcium 6.6 L* Prot Corrected Calcium 6.9 L* Phosphorus 6.8 H Magnesium 2.1 Total Bilirubin 0.7 AST 89 H ALT 69 Alkaline Phosphatase 134 H Troponin I Less than 0.02 L Total Protein 6.4 Albumin 2.5 L 05/24/18 11:52 WBC RBC Hgb Hct MCV MCH MCHC RDW Plt Count MPV Prelim Diff (Auto) WBC Differential Seg Neuts % (Manual) Band Neuts % (Manual) Lymphocytes % (Manual) Monocytes % (Manual) Abs Neuts (Manual) Differential Comment Platelet Estimate Platelet Morphology Ovalocytes Sodium Potassium Chloride Carbon Dioxide Anion Gap BUN Creatinine Estimated GFR POC Glucose 186 H Random Glucose Calcium Prot Corrected Calcium Phosphorus Magnesium Total Bilirubin AST ALT Alkaline Phosphatase Troponin I Total Protein Albumin Microbiology 05/22/18 13:28 Aerobic Blood Culture - Preliminary Blood - Peripheral No growth in 2 days Anaerobic Blood Culture - Preliminary No growth in 2 days 05/22/18 13:41 Aerobic Blood Culture - Preliminary Blood - Peripheral No growth in 2 days Anaerobic Blood Culture - Preliminary No growth in 2 days 05/21/18 09:56 Aerobic Blood Culture - Final Blood - Peripheral S. aureus MRSA Anaerobic Blood Culture - Final S. aureus MRSA 05/21/18 09:56 Aerobic Blood Culture - Final Blood - Peripheral S. aureus MRSA Anaerobic Blood Culture - Final S. aureus MRSA 05/21/18 09:51 Urine Culture - Final Catheterized Urine No growth in 48 hours Impressions Extremity Arterial Study 05/22/18 00:00 CONCLUSION: 1. There is significant decrease in the ankle-brachial index on the right suggesting severe peripheral vascular disease. The left ankle-brachial index could not be obtained, but the toe brachial index on the left is significantly decreased suggesting severe peripheral vascular disease on the left also. Head CT 05/22/18 00:00 CONCLUSION: 1. Negative CT Head non contrast. . Lower Extremity Ultrasound 05/22/18 00:00 CONCLUSION: 1. Saphenous vein mapping/measurements as described above. Venous Doppler Study 05/22/18 00:00 CONCLUSION: 1. The study is negative for bilateral lower extremity deep venous thrombosis. Aorta w/Runoff CTA 05/23/18 00:00 CONCLUSION: 1. Patent inflow and outflow bilaterally. 2. Heavily calcified trifurcation vessels limits their patency evaluation. On the right there is possible straight-line flow through the anterior tibial artery and peroneal artery. The posterior tibial artery is clearly occluded. On the left there is a similar appearance. 3. Atrophic kidneys. 4. Splenomegaly. Foot X-Ray 05/23/18 00:00 CONCLUSION: Right bony change as described above. Ulcer seen adjacent to the distal aspect of first metatarsal. Foot X-Ray 05/23/18 00:00 CONCLUSION: Chronic change. Upper Extremity Ultrasound 05/23/18 00:00 CONCLUSION: 1. Venous mapping as detailed above. Venous Doppler Study 05/23/18 00:00 CONCLUSION: No evidence of deep venous thrombosis. Assessment and Plan - Assessment (1) Fever Code(s): R50.9 - Fever, unspecified Status: Acute - Plan 63 yo male with fever and now bacteremia Pt w/ a Left Upper Extremity ArterioVenous Graft. Clinically no signs of graft infection. Left heel wound with purulent discharge. I believe that this is the source of the current infection. I discussed the case with Dr. Burgos and we recommended a below-knee amputation to the patient but he is currently refusing. He will need an extensive debridement which may require prolonged healing time. I reviewed the CT angiography, there is extensive tibial disease bilaterally. I will perform a diagnostic angiography of the left lower extremity to improve his blood supply and make adequate for wound healing. Casper Collins MD [phone] (1) Fever Qualifiers: Fever type: unspecified Qualified Code(s): R50.9 - Fever, unspecified
[2018-05-24] MEDS: Piperacil/Tazo 2.25 GM Premix 50 ML IV.SIG SCH ×2 (13:28→23:40)
[2018-05-24] MEDS ORDERED: Lidocaine PF 1% Inj 30 ML Vial ONE (14:00)
[2018-05-24] MEDS ORDERED: Heparin/NS PF Inj 1,500 ML ONE (14:37)
--- NOTE | 2018-05-24 15:14 | CATHPROC ---
[employer] HIS Report Study Information Study Number Admission Scheduled Start Study Start [id number] May 21 2018 11:11AM 05/24/2018 May 24 2018 1:30PM [place] [facility] Cardiac Catheterization Admit Source Facility Department Emergency department [facility] - Electrical Instrument Maker Physician and Clinical Staff Initial Casper Merrill Warehouse Helper Fabienne Babb RN Recorder Oumou Sheridan,RT(R) (BS) ScrGordo Vazquez,RT(R) Procedures Performed Procedure Location (Site) Vessel Name Wire insertion Fem Art (right) Femoral Art Equipment Time Youth Officer Description Size Mfg Part Number Used/Scraped PERCLOSE, PRO GLIDE CLOSER 14:59 [employer] FR 6 [id number] *[id number] Used DEVICE [id number] 13:37 [employer] WIRE, SUPERCORE 190CM Used *[id number] 14:35 [employer] WIRE, SUPERCORE 300CM 300CM Used *[id number] 13:37 ANGIO-DYNAMICS OMNI FLUSH 65CM CATHETER FR 4 Used *[id number] INTRODUCER SET, 13:37 [employer] FR 5 [id number] *[id number] Used MICROPUNCTURE STIFF [id number] 13:37 [employer] PACK, CCL CUSTOM * Used *[id number] PROBE COVER, STERILE [id number] 13:37 [employer] * Used ULTRASOUND W/ GEL *[id number] 13:37 NAMIC MANIFOLD, 4 PORT * Used *[id number] 13:37 NYCOMED OMNIPAQUE, 300 MG, 150ML 150ML [id number] Used 13:37 [employer]COMED OMNIPAQUE, 300 MG, 50ML 50ML [id number] Used [id number] 13:37 TERUMO MEDICAL SHEATH, FR5 TERUMO (10CM) FR 5 Used *[id number] 14:57 [employer]UM[employer] MEDICAL/DORIS CATHETER, FR5 ANGLED 100CM FR 5 [id number] *[id number] Used WIRE, ANGLED GLIDE .035 [id number] 13:37 TERUMO MEDICAL/DORIS 260CM Used 260CM *[id number] Equipment Model, Serial, Lot Number and Expiration Data Description Model Number Serial Number Lot Number Expiration D ate PERCLOSE, PRO GLIDE CLOSER [id number] 09-02-2019 DEVICE History: Allergies Allergy Reaction *MDRO Multi-Drug Resistant Abdominal Pain Organism History: Risk Factors Hypertension Dyslipidemia Yes Yes Cerebrovascular Diabetes Disease Medication Medication Total Dose (Bolus/Oral) Medication Total Dosage/Unit 1% XYLOCAINE 10 mL Medications (Bolus/Oral) Medication Time Given Dosage/Unit Administered By Reason 1% XYLOCAINE 05/24/2018 2:30:06 PM 10 mL Casper Collins 10 mL 1% XYLOCAINE given in lab by Casper Collins in Right Groin via Subcutaneous. Medication (Drip) Medication Time Given Dosage/Unit Concentration/Unit Diluent (ml) Solution IV Solutions 05/24/2018 1:31:55 PM 0 mL (IV) 500 NaCl .9 IV Solutions given in lab by Fabienne Babb, RN via Peripheral IV. Pump/Drip Flow = 30 ml/hr using N aCl .9. Initial Case Assessment Cardiovascular HR NIBP 79 158/42 Edema Present Skin color Skin Moderate Normal Warm Dry Circulatory - Right Pulses Femoral 2 Scale (0,1,2,3,4,d) Circulatory - Left Pulses Femoral 2 Scale (0,1,2,3,4,d) Circulatory - Lower Extremities Color Lower Right Color Lower Left Normal Normal Neurological State Oriented to time-place- Alert Moves all extremities person Respiration - General Respiration Rate SpO2 (%) O2 (lpm) (B/min) 8 100 2 Chronological Log Time Study Chronological Log 13:30:28 Patient arrived via Bed. 13:30:30 Patient Name, D.O.B, / Armband Verified By R.N. 13:30:31 Consent signed by the physician and the patient and verified by the Electrical Instrument Maker staff. 13:31:41 Pre-op and post- op instructions given; patient acknowledges understanding of instructions. 13:31:44 Presedation assessment performed by Electrical Instrument Maker RN. 13:31:47 Patient has been NPO for More than 6Hrs. 13:31:49 Skin Breakdown- Numerous scabs and necrotic areas. See nursing notes 13:31:50 Patient Warmer Placed on the Table. 13:31:52 Pura Prominences Protected 13:31:54 A # 20 IV was noted in the Antecubital (right). Grade = 0 13:31:55 IV Solutions given in lab by Fabienne Babb, RN via Peripheral IV. Pump/Drip Flow = 30 ml/ hr using NaCl .9. 13:31:56 History and physical on the chart or being dictated. Assessment: Initial Case, HR=79 BPM, TBHS=425/42 mmhg, Edema=Mod, Color=Normal, Skin = Warm, Dr y Right Pulses: Femoral=2 Left Pulses: Femoral=2 13:31:57 Lower Right Extremities: Color=Normal Lower Left Extremities: Color=Normal Neurological: State=Alert, Ox3, DE DIOS Respiration: Resp=8 B/min, LtP8=614 %, O2=2 lpm Vitals capture started with the following parameters, Patient=Adult, Interval=5 min, Initial Pr aszqjr=745 mmHg, 13:49:59 Deflation Rate=5 mmHg, Cuff placed on Left Arm 13:51:31 HR=78 bpm, YELA=637/42 mmhg, SpO2=95.0 %, Resp=17 B/min, Pain=0, Zakiya=10, Ravi=2 13:56:20 HR=77 bpm, EKHY=118/43 mmhg, EqS2=491.0 %, Resp=12 B/min, Pain=0, Zakiya=10, Ravi=2 14:00:46 HR=79 bpm, YFZE=907/39 mmhg, SpO2=85.0 %, Resp=20 B/min, Pain=0, Zakiya=10, Ravi=2 14:05:47 HR=77 bpm, HSZZ=505/37 mmhg, SpO2=96.0 %, Resp=20 B/min, Pain=0, Zakiya=10, Ravi=2 14:10:44 HR=77 bpm, BRPE=339/47 mmhg, SpO2=99.0 %, Resp=11 B/min, Pain=0, Zakiya=10, Ravi=2 14:16:26 HR=78 bpm, TEWB=116/30 mmhg, SpO2=87.0 %, Resp=14 B/min, Pain=0, Zakiya=10, Ravi=2 14:19:34 Bilateral groins prepped with 2% chlorhexidine, and draped after a 3 minute waiting time. 14:20:48 HR=75 bpm, IJIW=533/42 mmhg, SpO2=98.0 %, Resp=10 B/min, Pain=0, Zakiya=10, Ravi=2 14:26:33 HR=78 bpm, CDJO=650/40 mmhg, SpO2=97.0 %, Resp=16 B/min, Pain=0, Zakiya=10, Ravi=2 Time Out. Correct patient, correct procedure, correct physician, labs, allergies, and equipment verified with cleaning laborer 14:29:30 team present. Fire risk assesment completed (see hard stop sheet for coding). Time Out Conc urred by and individual staff in procedure. 14:29:47 Case Start 14:30:06 10 mL 1% XYLOCAINE given in lab by Casper Collins in Right Groin via Subcutaneous. 14:30:49 HR=76 bpm, IFFK=230/44 mmhg, SpO2=98.0 %, Resp=15 B/min, Pain=0, Zakiya=10, Ravi=2 14:33:25 Access site was Right Femoral Artery. A INTRODUCER SET, MICROPUNCTURE STIFF FR 5 was advanced into the Fem Art (right) using the Perc utaneous 14:33:38 technique. A SHEATH, FR5 TERUMO (10CM) FR 5 was exchanged in the Fem Art (right). This was necessary in or mike to :33:44 accomodate a larger catheter. A OMNI FLUSH 65CM CATHETER FR 4 was advanced over a wire. OMNIPAQUE, 300 MG, 150ML 150ML was us ed for 14:33:57 injections. 14:35:48 HR=75 bpm, HISI=243/42 mmhg, SpO2=98.0 %, Resp=11 B/min, Pain=0, Zakiya=10, Ravi=2 14:36:21 Through a OMNI FLUSH 65CM CATHETER FR 4, The Abd Aorta (A3) was injected with 8 cc's of con trast. 14:37:46 A WIRE, ANGLED GLIDE .035 260CM 260CM was inserted via Fem Art (right). 14:37:55 After removing the current catheter a catheter was advanced over a WIRE, ANGLED GLIDE .035 260CM 260CM. 14:40:51 HR=75 bpm, VWRF=833/38 mmhg, SpO2=97.0 %, Resp=15 B/min, Pain=0, Zakiya=10, Ravi=2 14:45:52 HR=77 bpm, ZDLQ=985/36 mmhg, SpO2=95.0 %, Resp=23 B/min, Pain=0, Zakiya=10, Ravi=2 14:47:58 Catheter was removed 14:49:51 Through a catheter, The Fem L. Com (L7) was injected with 8 cc's of contrast. Injections co ntinued down the leg 14:50:49 HR=80 bpm, MAXE=889/45 mmhg, SpO2=96.0 %, Resp=16 B/min, Pain=0, Zakiya=10, Ravi=2 14:55:54 HR=75 bpm, CVNV=726/39 mmhg, SpO2=95.0 %, Resp=16 B/min, Pain=0, Zakiya=10, Ravi=2 15:00:36 PERCLOSE, PRO GLIDE CLOSER DEVICE FR 6 placement in the Fem Art (right) 15:01:34 HR=76 bpm, VOIP=399/37 mmhg, SpO2=97.0 %, Resp=11 B/min, Pain=0, Zakiya=10, Ravi=2 15:04:19 Case End (Physician broke scrub) 15:05:52 HR=76 bpm, XIAT=802/31 mmhg, SpO2=97.0 %, Resp=20 B/min, Pain=0, Zakiya=10, Ravi=2 15:06:10 Sterile dressing applied to site 15:10:36 Vitals capture stopped. 15:13:57 Catheter(s) removed without difficulty 15:14:14 No case complications noted. 15:14:17 Bedside Report will be given. 15:14:19 Implantable Device card placed in patient's chart. 15:14:52 [facility] to [facility] End Study - Contrast Media Used In Study Contrast Total Opened (mL) Total Used (mL) Total Wasted (mL) Omnipaque 300 85 85 0 End Study - Radiation Exposure Fluoro Time (minutes) 3.9 End Study - Patient Disposition Complications Transferred To Interventional Outcome No Critical Care Bed No attempt made
--- NOTE | 2018-05-24 15:24 | P.OP ---
Preoperative Diagnosis: Bilateral lower extremity critical limb ischemia with tissue loss Postoperative Diagnosis: Bilateral lower extremity critical limb ischemia with tissue loss Date of procedure: 05/24/18 Procedure: #1 ultrasound-guided access of the right common femoral artery #2 AIF angiogram #3 left lower extremity third order angiogram #4 right lower extremity second order angiogram #5 radiological supervision interpretation #6 Perclose of the right common femoral artery Anesthesia: local Surgeon: Casper Collins MD Operation and Findings: Findings #1 the infrarenal abdominal aorta bilateral common iliac artery, bilateral external iliac artery, bilateral common femoral artery, bilateral profunda femoral artery, bilateral superficial femoral artery, bilateral popliteal arteries were noted to be patent with no evidence of significant stenosis #2 the left posterior tibial artery is noted to be occluded. There is two- vessel runoff to the left foot via the peroneal artery, left anterior tibial artery. There is severe microvascular disease involving the left foot. #3 the right posterior tibial artery was noted to be occluded. There is a single vessel runoff to the right foot via the anterior tibial artery. Significantly diseased and stenotic right dorsalis pedis artery. Severe micro- vascular disease involving the left foot. Description of the procedure The patient was taken to the operating room placed supine on the OR table. Timeout was called with all members in the OR in agreement. 1% lidocaine was injected in the right groin. Using ultrasound guidance we accessed the right common femoral artery. Typical was introduced into the abdominal aorta. 5 Montserratian sheath was placed in the right common femoral artery. A catheter was introduced into the infrarenal abdominal aorta and an AIF angiogram was performed. A catheter was introduced into the left popliteal artery in the left lower extremity since third order angiogram was performed. And a catheter was introduced into the right common femoral artery and a right lower extremity second order angiogram was performed. At this point all catheter wires and sheath were removed and I closed the right common femoral artery arteriotomy using the Perclose device. The patient tolerated the procedure well and was taken to recovery unit in stable condition. Conclusion I performed a diagnostic angiography and showed two-vessel runoff to the left foot which has significant microvascular disease. I think a left below-knee amputation will be the best option for this patient. I had this discussion with him and he is currently refusing an amputation. Limb salvage could be attempted by the podiatry team but wound healing may be compromised. The right lower extremity angiogram shows a single vessel runoff to the right foot with significantly diseased dorsalis pedis artery. I will schedule the patient for a right lower extremity angiogram and possible limb salvage at a later date after his recovery.
[2018-05-25] MEDS: Morphine Sulfate Inj 2 MG/ML Vial IV.PUSH PRN ×5 (04:20→21:18)
[2018-05-25] MEDS: Chlorhexidine Gluconate 2% 1 Pack (2 Cloths) TOPICAL SCH (04:21)
[2018-05-25] MEDS: Metoprolol Tartrate 25 MG Tablet PO SCH ×2 (08:10→21:04)
[2018-05-25] MEDS: Gabapentin 300 MG Capsule PO SCH ×2 (08:10→21:04)
[2018-05-25] MEDS: Insulin NovoLOG Aspart Correctional Sugar Inj SQ SCH ×4 (08:10→21:00)
[2018-05-25] MEDS: Phenytoin Sodium 100 MG Capsule PO SCH ×2 (08:10→21:03)
[2018-05-25] MEDS: Calcitriol 0.25 MCG Capsule PO SCH (08:10)
[2018-05-25] MEDS: amLODIPine 5 MG Tablet PO SCH (08:11)
[2018-05-25] MEDS: Senna/Docusate Sodium 8.6/50 MG Tablet PO SCH ×2 (08:11→21:03)
[2018-05-25] MEDS: Methocarbamol 500 MG Tablet PO SCH ×4 (08:11→21:03)
[2018-05-25] MEDS: Sodium Chloride 0.9% 2 ML Flush BID IV.FLUSH SCH ×2 (08:17→21:04)
--- NOTE | 2018-05-25 09:42 | P.PNID ---
Subjective Remarks: Patient is a 63-year-old male, brought into the hospital complaining of chest pain. Patient has known coronary artery disease. He had prior stenting of his coronaries I believe back in August of this year. In February he was readmitted and had an HI, and at that time he had bradycardia and he underwent placement of a pacemaker. Patient on this admission started having fevers and he was encephalopathic. There was some notation that he had some redness on his left upper extremity where he has his AV graft. Patient stated he had the AV graft put in about 6 months ago and the dialysis unit started using it about 4 months ago. Patient was also noted to have multiple wounds in the right foot as well as in the left foot. He stated he was hospitalized at [facility] last April and had surgery on his toes. He could not really tell me which of the toes he had surgery on. I spoke with microbiology in [facility], and there was a toe culture that grew Morganella morganii acne. It was resistant to ampicillin, Unasyn, cefazolin, and intermediate to gentamicin. Patient was apparently given some oral antibiotic but he could not remember what it was. He was last seen by his thread clipper about a week ago and as far as he knows there was no problem with it. Patient states that he ambulates without any problem at home. Blood cultures done on this admission is now reported as growing possible MRSA. He had imaging study of the AV graft and there is a small fluid close to the AV graft. Patient currently is awake and alert and oriented. He is not short of breath, and currently no chest pain. Patient states he has neuropathy and does not really feel any pain in both feet. Infectious disease consultation has been requested to assist with evaluation and treatment of patient with positive blood culture. 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 Objective Vital Signs 05/24/18 09:46 05/24/18 10:00 05/24/18 10:15 Temperature Pulse Rate 75 77 77 Respiratory Rate 14 13 12 Blood Pressure 151/62 H 159/65 H 156/63 H Pulse Oximetry 100 100 100 05/24/18 10:30 05/24/18 10:45 05/24/18 11:00 Temperature Pulse Rate 75 75 78 Respiratory Rate 13 13 12 Blood Pressure 150/65 H 142/60 H 153/58 H Pulse Oximetry 100 100 100 05/24/18 11:15 05/24/18 11:30 05/24/18 12:00 Temperature 98.7 F Pulse Rate 75 74 77 Respiratory Rate 12 13 14 Blood Pressure 151/66 H 162/70 H 151/65 H Pulse Oximetry 100 99 99 05/24/18 13:00 05/24/18 14:00 05/24/18 15:28 Temperature Pulse Rate 75 77 77 Respiratory Rate 13 Blood Pressure 156/65 H Pulse Oximetry 99 100 05/24/18 15:29 05/24/18 15:30 05/24/18 15:45 Temperature Pulse Rate 76 75 74 Respiratory Rate 6 L 7 L 13 Blood Pressure 157/64 H 162/67 H 155/61 H Pulse Oximetry 100 100 100 05/24/18 16:00 05/24/18 16:30 05/24/18 17:00 Temperature Pulse Rate 74 71 71 Respiratory Rate 16 10 L 15 Blood Pressure 157/63 H 150/62 H Pulse Oximetry 98 100 99 05/24/18 17:01 05/24/18 17:30 05/24/18 18:00 Temperature Pulse Rate 72 70 71 Respiratory Rate 16 14 17 Blood Pressure 154/64 H 143/63 H Pulse Oximetry 100 100 100 05/24/18 18:01 05/24/18 20:00 05/24/18 22:00 Temperature 98.6 F Pulse Rate 72 70 70 Respiratory Rate 16 13 23 Blood Pressure 178/76 H 149/65 H 153/64 H Pulse Oximetry 99 99 100 05/24/18 22:12 05/25/18 00:00 05/25/18 01:01 Temperature 99 F Pulse Rate 70 Respiratory Rate 23 Blood Pressure 158/65 H Pulse Oximetry 97 100 100 05/25/18 02:00 05/25/18 04:00 05/25/18 04:28 Temperature 98.0 F 98.7 F Pulse Rate 69 70 Respiratory Rate 12 16 Blood Pressure 157/67 H 162/69 H Pulse Oximetry 100 100 94 L 05/25/18 06:00 05/25/18 06:57 05/25/18 08:20 Temperature 98.6 F Pulse Rate 69 68 Respiratory Rate 13 Blood Pressure 145/64 H Pulse Oximetry 100 96 Intake & Output 05/24/18 05/25/18 05/25/18 18:59 06:59 18:59 Intake Total 580 / 580 50 / 50 200 / 200 Output Total 3000 / 3000 0 / 0 Balance -2420 / -2420 50 / 50 200 / 200 Weight 133 kg Intake: IV 480 / 480 50 / 50 Calcium Gluconate Inj 2 GM In 120 / 120 D5W Inj 100 ML @ 120 mls/hr IV. SIG ONCE ONE Rx#:[id number] Zosyn 2.25 GM Premix 50 ML @ 50 / 50 100 mls/hr IV.SIG Q12H [facility] Rx#: [id number] Oral 100 / 100 200 / 200 Output: Urine 0 / 0 0 / 0 Stool 0 / 0 0 / 0 Urine/Stool Mix 0 / 0 0 / 0 Hemodialysis Amount 3000 / 3000 Other: Date of Last Bowel Movement 05/24/18 05/24/18 05/24/18 # Bowel Movements 0 0 # Incontinent Bowel Movements 0 0 05/22/18 13:28 Blood - Peripheral Aerobic Blood Culture - Preliminary No growth in 2 days 05/22/18 13:28 Blood - Peripheral Anaerobic Blood Culture - Preliminary No growth in 2 days 05/22/18 13:41 Blood - Peripheral Aerobic Blood Culture - Preliminary No growth in 2 days 05/22/18 13:41 Blood - Peripheral Anaerobic Blood Culture - Preliminary No growth in 2 days 05/21/18 09:56 Blood - Peripheral Aerobic Blood Culture - Final S. aureus MRSA 05/21/18 09:56 Blood - Peripheral Anaerobic Blood Culture - Final S. aureus MRSA 05/21/18 09:56 Blood - Peripheral Aerobic Blood Culture - Final S. aureus MRSA 05/21/18 09:56 Blood - Peripheral Anaerobic Blood Culture - Final S. aureus MRSA 05/21/18 09:51 Catheterized Urine Urine Culture - Final No growth in 48 hours 05/22/18 09:50 Nasal Wash Influenza Types A,B Antigen - Final Negative for FLU A and B antigen Infection due to influenza A or B cannot be ruled out since the antigen present in the sample may be below the detection limit of the test. Lab - Hematology Results 05/23/18 05/24/18 09:16 04:40 WBC 5.0 4.5 RBC 3.00 L 2.57 L Hgb 10.0 L 8.4 L Hct 28.8 L 24.6 L MCV 95.9 95.6 MCH 33.2 32.7 MCHC 34.6 34.2 RDW 15.0 14.8 Plt Count 111 L 106 L MPV 9.2 8.7 Prelim Diff (Auto) Slide review pending Manual diff required Neut % (Auto) 56.5 Lymph % (Auto) 10.5 Gates % (Auto) 31.0 H Eos % (Auto) 1.5 Baso % (Auto) 0.5 Neut # (Auto) 2.8 Lymph # (Auto) 0.5 L Gates # (Auto) 1.5 H Eos # (Auto) 0.1 Baso # (Auto) 0.0 WBC Differential Manual diff final Manual diff final Seg Neuts % (Manual) 38 56 Band Neuts % (Manual) 30 H 28 H Lymphocytes % (Manual) 4 L 11 Monocytes % (Manual) 27 H 5 Eosinophils % (Manual) 1 Abs Neuts (Manual) 3.4 3.8 Differential Comment . . Platelet Estimate Low L Low L Platelet Morphology Enlarged H Normal Ovalocytes 1+ H Hematology Comments Lab - Chemistry Results 05/23/18 05/23/18 05/23/18 09:16 12:42 17:43 Sodium 129 L Potassium 4.4 Chloride 93 L Carbon Dioxide 24.3 Anion Gap 12 BUN 67 H Creatinine 6.03 H Estimated GFR 9 L POC Glucose 139 H 166 H Random Glucose 122 H Calcium 6.9 L* Prot Corrected Calcium 7.3 L* Phosphorus 7.2 H D Magnesium 2.2 Total Bilirubin 0.6 AST 141 H ALT 91 H Alkaline Phosphatase 130 H Troponin I Total Protein 6.4 D Albumin 2.6 L 05/23/18 05/24/18 05/24/18 20:25 04:40 09:38 Sodium 130 L Potassium 4.1 Chloride 91 L Carbon Dioxide 26.4 Anion Gap 13 BUN 76 H Creatinine 7.28 H Estimated GFR 8 L POC Glucose 231 H Random Glucose 163 H Calcium 6.6 L* Prot Corrected Calcium 6.9 L* Phosphorus 6.8 H Magnesium 2.1 Total Bilirubin 0.7 AST 89 H ALT 69 Alkaline Phosphatase 134 H Troponin I Less than 0.02 L Total Protein 6.4 Albumin 2.5 L 05/24/18 05/24/18 05/24/18 11:52 16:55 20:24 Sodium Potassium Chloride Carbon Dioxide Anion Gap BUN Creatinine Estimated GFR POC Glucose 186 H 165 H 220 H Random Glucose Calcium Prot Corrected Calcium Phosphorus Magnesium Total Bilirubin AST ALT Alkaline Phosphatase Troponin I Total Protein Albumin 05/25/18 05/25/18 06:09 08:07 Sodium Potassium Chloride Carbon Dioxide Anion Gap BUN Creatinine Estimated GFR POC Glucose 179 H 187 H Random Glucose Calcium Prot Corrected Calcium Phosphorus Magnesium Total Bilirubin AST ALT Alkaline Phosphatase Troponin I Total Protein Albumin Imaging: ITS Impressions Chest CTA 05/21/18 00:00 CONCLUSION: 1. No evidence of pulmonary embolism. 2. Minimal scattered ground-glass densities are noted consistent with minimal pulmonary vascular congestion versus atelectatic changes. 3. Coronary artery calcifications. 4. Tiny bilateral pleural effusions. 5. Splenomegaly. 6. Pneumobilia. 7. 13 mm right thyroid lobe nodule. 8. Degenerative changes throughout the thoracic spine. Chest X-Ray 05/21/18 00:28 CONCLUSION: Small lung volumes with an elevated right hemidiaphragm. Right subclavian bipolar pacer Extremity Arterial Study 05/22/18 00:00 CONCLUSION: 1. There is significant decrease in the ankle-brachial index on the right suggesting severe peripheral vascular disease. The left ankle-brachial index could not be obtained, but the toe brachial index on the left is significantly decreased suggesting severe peripheral vascular disease on the left also. Head CT 05/22/18 00:00 CONCLUSION: 1. Negative CT Head non contrast. . Lower Extremity Ultrasound 05/22/18 00:00 CONCLUSION: 1. Saphenous vein mapping/measurements as described above. Aorta w/Runoff CTA 05/23/18 00:00 CONCLUSION: 1. Patent inflow and outflow bilaterally. 2. Heavily calcified trifurcation vessels limits their patency evaluation. On the right there is possible straight-line flow through the anterior tibial artery and peroneal artery. The posterior tibial artery is clearly occluded. On the left there is a similar appearance. 3. Atrophic kidneys. 4. Splenomegaly. Foot X-Ray 05/23/18 00:00 CONCLUSION: Chronic change. Upper Extremity Ultrasound 05/23/18 00:00 CONCLUSION: 1. Venous mapping as detailed above. Venous Doppler Study 05/23/18 00:00 CONCLUSION: No evidence of deep venous thrombosis. Physical Exam: GENERAL: awake and alert, not in respiratory distress. SKIN: Cool and dry. No generalized rash, no ecchymoses and no evidence of embolic lesions. Has multiple dry wounds in both LE HEAD: Atraumatic. Normocephalic. No temporal wasting, or tenderness. EYES: [place] conjunctiva. No petechia or hemorrhage. No scleral icterus. No injection or drainage. EARS, NOSE AND THROAT: Mucous membranes pink and moist. No oral lesions noted. No exudate. No oral thrush. NECK: Trachea midline. Supple and not tender, no meningeal signs CARDIOVASCULAR: Regular rate and rhythm. No murmurs, rubs or gallops heard. Pacer in R upper chest has well healed incision, not red, not swollen, not tender RESPIRATORY: Clear to auscultation. Breath sounds equal bilaterally. No rales , wheezing or rhonchi ABDOMEN: Soft, globular, non-tender, nondistended. Bowel sounds present and normoactive. No guarding. No rebound. EXTREMITIES: No clubbing, cyanosis. Skin tight in both LE. Has multiple dry wounds on both legs, no evidence of infection. L foot - S/P amp 2-4 toes, there is a dry ulcer plantar aspect over 2nd and 3rd MT, and there is L heel ulcer, getting dryer. R foot he has dry wounds over the remaining 2nd and 3rd toes, ?partial amputation. it also looks like he had ray resection of 5th MT and there is a dry scab or ulcer present, some mild erythema on dorsum of that R foot. Healed partial amp of his R big toe. No calf tenderness. Tight skin on both feet, cool, no pulses appreciated. He has AVG in LUE and does not look infected on exam NEUROLOGICAL: Awake and alert. Cranial nerves grossly intact. Motor grossly within normal limits. PSYCHIATRIC: Normal affect, calm and cooperative. LINE: No evidence of infection Assessment and Plan - Plan Impression MRSA sepsis, source? - has pacer recently placed, site looks ok - has LUE AVG, looks ok; not sure significance of fluid seen on doppler, ?early infection; per report had redness on admission - has multiple wounds both feet; L heel possibly source; has severe microvascular disease L foot - ?endocarditis ESRD on HD Encephalopathy due to sepsis, better PVD, BLE Recommendation IV Vancomycin - level is low, will give another dose today Follow repeat BC to document clearing Continue GNR coverage for the feet ulcers - get records from [facility] - podiatry evaluation Follow temps Follow C/S Monitor progress Amputation recommended by vascular - patient currently refusing Wound care
--- NOTE | 2018-05-25 10:26 | P.PNIM ---
Subjective Interval history: Patient is lying down in bed. He currently is not distress. Discussion was had with the patient regarding recommendations from vascular surgery for amputation. He is refusing amputation at this time. Physical Exam Vital signs: Vital Signs 05/24/18 10:15 05/24/18 10:30 05/24/18 10:45 Temperature Pulse Rate 77 75 75 Respiratory Rate 12 13 13 Blood Pressure 156/63 H 150/65 H 142/60 H Pulse Oximetry 100 100 100 05/24/18 11:00 05/24/18 11:15 05/24/18 11:30 Temperature 98.7 F Pulse Rate 78 75 74 Respiratory Rate 12 12 13 Blood Pressure 153/58 H 151/66 H 162/70 H Pulse Oximetry 100 100 99 05/24/18 12:00 05/24/18 13:00 05/24/18 14:00 Temperature Pulse Rate 77 75 77 Respiratory Rate 14 13 Blood Pressure 151/65 H 156/65 H Pulse Oximetry 99 99 05/24/18 15:28 05/24/18 15:29 05/24/18 15:30 Temperature Pulse Rate 77 76 75 Respiratory Rate 6 L 7 L Blood Pressure 157/64 H 162/67 H Pulse Oximetry 100 100 100 05/24/18 15:45 05/24/18 16:00 05/24/18 16:30 Temperature Pulse Rate 74 74 71 Respiratory Rate 13 16 10 L Blood Pressure 155/61 H 157/63 H 150/62 H Pulse Oximetry 100 98 100 05/24/18 17:00 05/24/18 17:01 05/24/18 17:30 Temperature Pulse Rate 71 72 70 Respiratory Rate 15 16 14 Blood Pressure 154/64 H 143/63 H Pulse Oximetry 99 100 100 05/24/18 18:00 05/24/18 18:01 05/24/18 20:00 Temperature 98.6 F Pulse Rate 71 72 70 Respiratory Rate 17 16 13 Blood Pressure 178/76 H 149/65 H Pulse Oximetry 100 99 99 05/24/18 22:00 05/24/18 22:12 05/25/18 00:00 Temperature 99 F Pulse Rate 70 70 Respiratory Rate 23 23 Blood Pressure 153/64 H 158/65 H Pulse Oximetry 100 97 100 05/25/18 01:01 05/25/18 02:00 05/25/18 04:00 Temperature 98.0 F 98.7 F Pulse Rate 69 70 Respiratory Rate 12 16 Blood Pressure 157/67 H 162/69 H Pulse Oximetry 100 100 100 05/25/18 04:28 05/25/18 06:00 05/25/18 06:57 Temperature 98.6 F Pulse Rate 69 68 Respiratory Rate 13 Blood Pressure 145/64 H Pulse Oximetry 94 L 100 05/25/18 08:20 Temperature Pulse Rate Respiratory Rate Blood Pressure Pulse Oximetry 96 Intake & Output 05/24/18 05/25/18 05/25/18 18:59 06:59 18:59 Intake Total 580 / 580 50 / 50 200 / 200 Output Total 3000 / 3000 0 / 0 Balance -2420 / -2420 50 / 50 200 / 200 Weight 133 kg Intake: IV 480 / 480 50 / 50 Calcium Gluconate Inj 2 GM In 120 / 120 D5W Inj 100 ML @ 120 mls/hr IV. SIG ONCE ONE Rx#:[id number] Zosyn 2.25 GM Premix 50 ML @ 50 / 50 100 mls/hr IV.SIG Q12H [facility] Rx#: [id number] Oral 100 / 100 200 / 200 Output: Urine 0 / 0 0 / 0 Stool 0 / 0 0 / 0 Urine/Stool Mix 0 / 0 0 / 0 Hemodialysis Amount 3000 / 3000 Other: Date of Last Bowel Movement 05/24/18 05/24/18 05/24/18 # Bowel Movements 0 0 # Incontinent Bowel Movements 0 0 Narrative: General patient in no acute distress HEENT extraocular movements are intact, clear oropharyngeal mucosa Cardiovascular S1-S2 audible, RRR Respiratory clear to auscultation bilaterally Abdomen soft, nontender, nondistended, normal bowel sounds Extremities left upper extremity AV fistula, good thrill. Slight redness around the AV fistula site. The patient has multiple ulcerations of the right velazquez, left heel. The patient has had multiple amputations of toes in bilateral feet. Neuro patient moves all 4 of his extremities. Sensation is intact bilaterally. Results - Labs CBC & Chem 7: 05/24/18 04:40 05/24/18 04:40 Laboratory Results - last 24 hr 05/24/18 05/24/18 05/24/18 09:38 11:52 16:55 POC Glucose 186 H 165 H Troponin I Less than 0.02 L 05/24/18 05/25/18 05/25/18 20:24 06:09 08:07 POC Glucose 220 H 179 H 187 H Troponin I Microbiology 05/22/18 13:28 Blood - Peripheral Aerobic Blood Culture - Preliminary No growth in 2 days 05/22/18 13:28 Blood - Peripheral Anaerobic Blood Culture - Preliminary No growth in 2 days 05/22/18 13:41 Blood - Peripheral Aerobic Blood Culture - Preliminary No growth in 2 days 05/22/18 13:41 Blood - Peripheral Anaerobic Blood Culture - Preliminary No growth in 2 days 05/21/18 09:56 Blood - Peripheral Aerobic Blood Culture - Final S. aureus MRSA 05/21/18 09:56 Blood - Peripheral Anaerobic Blood Culture - Final S. aureus MRSA 05/21/18 09:56 Blood - Peripheral Aerobic Blood Culture - Final S. aureus MRSA 05/21/18 09:56 Blood - Peripheral Anaerobic Blood Culture - Final S. aureus MRSA Assessment and Plan - Assessment (1) Chest pain Code(s): R07.9 - Chest pain, unspecified Status: Acute (2) ESRD (end stage renal disease) on dialysis Code(s): N18.6 - End stage renal disease; Z99.2 - Dependence on renal dialysis Status: Acute (3) DM (diabetes mellitus) Code(s): E11.9 - Type 2 diabetes mellitus without complications Status: Chronic - Plan This patient is a 63-year-old male with a diagnosis of hypertension, dyslipidemia, end-stage renal disease on hemodialysis Wednesday and Wednesday, coronary artery disease status post stent in the past. 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 The patient initially was brought into the emergency department with complaints of chest pain. 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 After the patient was admitted he was found to be having fevers. He was found to have left upper extremity erythema over the AV fistula. Blood cultures were drawn and the patient was started on IV antibiotics. Blood cultures grew MRSA. 1. Sepsis secondary to MRSA bacteremia 2. Acute encephalopathy likely secondary to #1 resolved Patient has remained afebrile overnight. Labs show normal WBC count however bands present Patient with multiple ulcerations of bilateral feet and left heel. Blood cultures on 05/21/18 +2/2 MRSA Repeat blood cultures are currently negative. Infectious disease following Source may be the patient's ulcerations of his feet. Vascular surgery had ordered vascular imaging of the lower extremities and recommendation of a below- knee amputation was recommended however the patient is refusing. Follow-up with recommendations from vascular surgery. MRI of the feet pending. Continue wound care. Continue IV antibiotics for now. 2. Hypertension/dyslipidemia/coronary artery disease Continue aspirin, statin, brilinta, beta-carrie 3. Seizure disorder Continue phenytoin 4. End-stage renal disease on hemodialysis Last hemodialysis was yesterday. No signs of fluid overload. Nephrology following. Patient is thrombus cytopenic, no pharmacotherapy for DVT prophylaxis. No SCDs, patient has multiple wounds of the shins and feet bilaterally. (1) Chest pain Qualifiers: Chest pain type: other chest pain Qualified Code(s): R07.89 - Other chest pain; R07.8 - Other chest pain
[2018-05-25 10:52] LABS: Baso % (Auto) 0.4 % (0.0-2.0); Eos # (Auto) 0.2 th/mm3 (0.0-0.4); Hematocrit 23.5 % (39.0-51.0); Hemoglobin 8.2 gm/dL (13.0-17.0); Lymph # (Auto) 0.5 th/mm3 (1.0-4.8); Mean Corpuscular HGB Conc 34.8 % (32.0-36.0); Mean Corpuscular Hemoglobin 33.1 pg (27.0-34.0); Mean Corpuscular Volume 95.3 fL (80.0-100.0); Mono # (Auto) 0.7 th/mm3 (0.0-0.9); Mono % (Auto) 12.5 % (0.0-8.0); Neut # (Auto) 3.8 th/mm3 (1.8-7.7); Neut % (Auto) 73.1 % (16.0-70.0); Platelet Count 100 th/mm3 (150-450); Red Blood Count 2.46 mil/mm3 (4.50-5.90); Red Cell Distribution Width 15.1 % (11.6-17.2); White Blood Count 5.3 th/mm3 (4.0-11.0)
[2018-05-25 11:28] LABS: Albumin 2.4 g/dL (3.4-5.0); Calcium 7.1 mg/dL (8.5-10.1); Magnesium 2.2 mg/dL (1.5-2.5); Phosphorus 5.9 mg/dL (2.5-4.9); Potassium 4.4 meq/L (3.5-5.1); Total Protein 6.6 g/dL (6.4-8.2)
--- NOTE | 2018-05-25 11:36 | P.PNNP ---
Subjective Interval history: Mother at bedside. Upset because he feels like no one talked to him about possible need for amputation. Continues to report pleuritic pain. No shortness of breath. <Christa Velasquez - Last Filed: 05/25/18 11:37> Physical Exam Vital signs: Vital Signs 05/24/18 12:00 05/24/18 13:00 05/24/18 14:00 Temperature Pulse Rate 77 75 77 Respiratory Rate 14 13 Blood Pressure 151/65 H 156/65 H Pulse Oximetry 99 99 05/24/18 15:28 05/24/18 15:29 05/24/18 15:30 Temperature Pulse Rate 77 76 75 Respiratory Rate 6 L 7 L Blood Pressure 157/64 H 162/67 H Pulse Oximetry 100 100 100 05/24/18 15:45 05/24/18 16:00 05/24/18 16:30 Temperature Pulse Rate 74 74 71 Respiratory Rate 13 16 10 L Blood Pressure 155/61 H 157/63 H 150/62 H Pulse Oximetry 100 98 100 05/24/18 17:00 05/24/18 17:01 05/24/18 17:30 Temperature Pulse Rate 71 72 70 Respiratory Rate 15 16 14 Blood Pressure 154/64 H 143/63 H Pulse Oximetry 99 100 100 05/24/18 18:00 05/24/18 18:01 05/24/18 20:00 Temperature 98.6 F Pulse Rate 71 72 70 Respiratory Rate 17 16 13 Blood Pressure 178/76 H 149/65 H Pulse Oximetry 100 99 99 05/24/18 22:00 05/24/18 22:12 05/25/18 00:00 Temperature 99 F Pulse Rate 70 70 Respiratory Rate 23 23 Blood Pressure 153/64 H 158/65 H Pulse Oximetry 100 97 100 05/25/18 01:01 05/25/18 02:00 05/25/18 04:00 Temperature 98.0 F 98.7 F Pulse Rate 69 70 Respiratory Rate 12 16 Blood Pressure 157/67 H 162/69 H Pulse Oximetry 100 100 100 05/25/18 04:28 05/25/18 06:00 05/25/18 06:57 Temperature 98.6 F Pulse Rate 69 68 Respiratory Rate 13 Blood Pressure 145/64 H Pulse Oximetry 94 L 100 05/25/18 08:20 Temperature Pulse Rate Respiratory Rate Blood Pressure Pulse Oximetry 96 Intake & Output 05/24/18 05/25/18 05/25/18 18:59 06:59 18:59 Intake Total 580 / 580 50 / 50 200 / 200 Output Total 3000 / 3000 0 / 0 Balance -2420 / -2420 50 / 50 200 / 200 Weight 133 kg Intake: IV 480 / 480 50 / 50 Calcium Gluconate Inj 2 GM In 120 / 120 D5W Inj 100 ML @ 120 mls/hr IV. SIG ONCE ONE Rx#:[id number] Zosyn 2.25 GM Premix 50 ML @ 50 / 50 100 mls/hr IV.SIG Q12H [facility] Rx#: [id number] Oral 100 / 100 200 / 200 Output: Urine 0 / 0 0 / 0 Stool 0 / 0 0 / 0 Urine/Stool Mix 0 / 0 0 / 0 Hemodialysis Amount 3000 / 3000 Other: Date of Last Bowel Movement 05/24/18 05/24/18 05/24/18 # Bowel Movements 0 0 # Incontinent Bowel Movements 0 0 Narrative: GENERAL: Awake and alert. Flat affect. SKIN: Warm and dry. NECK: Supple, trachea midline. No JVD. CARDIOVASCULAR: Regular rate and rhythm without murmurs, gallops, or rubs. Left arm AVF with positive thrill and bruit. RESPIRATORY: Breath sounds equal bilaterally. No accessory muscle use. GASTROINTESTINAL: Abdomen soft, Positive bowel sounds. MUSCULOSKELETAL: No cyanosis, or edema. Bilateral lower extremity redness. Multiple toe amputations. Wound on bottom of left foot, chronic. BACK: Nontender without obvious deformity. No CVA tenderness. <Christa Velasquez - Last Filed: 05/25/18 11:37> Vital signs: Vital Signs 05/25/18 21:21 05/25/18 22:00 05/25/18 23:00 Temperature Pulse Rate 81 78 72 Respiratory Rate 14 17 17 Blood Pressure 193/79 H 193/78 H 162/67 H Pulse Oximetry 98 98 97 05/26/18 00:00 05/26/18 01:00 05/26/18 02:00 Temperature 99.0 F Pulse Rate 77 74 75 Respiratory Rate 17 19 14 Blood Pressure 165/67 H 167/71 H 166/70 H Pulse Oximetry 96 97 97 05/26/18 03:00 05/26/18 04:00 05/26/18 05:00 Temperature 98.3 F Pulse Rate 76 73 73 Respiratory Rate 14 12 22 Blood Pressure 165/71 H 183/77 H 173/73 H Pulse Oximetry 92 L 98 96 05/26/18 06:00 05/26/18 07:00 05/26/18 08:00 Temperature 98.7 F Pulse Rate 72 72 72 Respiratory Rate 12 14 12 Blood Pressure 175/72 H 180/77 H 186/76 H Pulse Oximetry 97 93 L 96 05/26/18 08:05 05/26/18 08:44 05/26/18 09:00 Temperature Pulse Rate 75 75 Respiratory Rate 22 28 H Blood Pressure 183/74 H Pulse Oximetry 99 95 99 05/26/18 09:01 05/26/18 10:00 05/26/18 12:00 Temperature 97.8 F Pulse Rate 75 72 74 Respiratory Rate 17 17 18 Blood Pressure 190/78 H 185/78 H 152/67 H Pulse Oximetry 98 96 97 05/26/18 16:00 05/26/18 19:40 Temperature 97.2 F L Pulse Rate 67 Respiratory Rate 18 Blood Pressure 152/68 H Pulse Oximetry 94 L 96 Intake & Output 05/26/18 05/26/18 05/27/18 06:59 18:59 06:59 Intake Total 110 / 110 50 / 50 Output Total 40 / 40 Balance 70 / 70 50 / 50 Weight 130 kg Intake: IV 50 / 50 50 / 50 Zosyn 2.25 GM Premix 50 ML @ 50 / 50 50 / 50 100 mls/hr IV.SIG Q12H [facility] Rx#: [id number] Oral 60 / 60 Output: Urine 40 / 40 Stool 0 / 0 Urine/Stool Mix 0 / 0 Other: Date of Last Bowel Movement 05/24/18 05/24/18 # Bowel Movements 0 # Incontinent Bowel Movements 0 <Moni Alvarado - Last Filed: 05/26/18 21:02> Assessment and Plan - Assessment (1) ESRD (end stage renal disease) on dialysis Code(s): N18.6 - End stage renal disease; Z99.2 - Dependence on renal dialysis Status: Acute Plan: Patient with end stage renal disease on HD TTS. Epogen with dialysis. Hemodialysis today, as it is holiday on , will remove fluid as tolerated. Labs pending today (2) DM (diabetes mellitus) Code(s): E11.9 - Type 2 diabetes mellitus without complications Status: Chronic Plan: Recommend to maintain blood sugars between 140 mg/dl to 180 mg/dl while hospitalized. (3) Anemia Code(s): D64.9 - Anemia, unspecified Status: Acute Plan: Epogen ordered with dialysis. HGB stable at 8.2 (4) Sepsis Code(s): A41.9 - Sepsis, unspecified organism Status: Acute Plan: Blood cultures positive for MRSA. Has MRSA Bacteremia, most likely from feet infection. Antibiotics per ID recommendations, renal dose as appropriate <Christa Velasquez - Last Filed: 05/25/18 11:37> - Assessment (1) ESRD (end stage renal disease) on dialysis Code(s): N18.6 - End stage renal disease; Z99.2 - Dependence on renal dialysis Status: Acute Plan: Patient seen and examined, agree with above. HD done today due to holiday. patient agree to get left BKA. (2) DM (diabetes mellitus) Code(s): E11.9 - Type 2 diabetes mellitus without complications Status: Chronic (3) Anemia Code(s): D64.9 - Anemia, unspecified Status: Acute (4) Sepsis Code(s): A41.9 - Sepsis, unspecified organism Status: Acute <Moni Alvarado - Last Filed: 05/26/18 21:02>
[2018-05-25] MEDS: Piperacil/Tazo 2.25 GM Premix 50 ML IV.SIG SCH ×2 (12:16→23:35)
--- NOTE | 2018-05-25 13:14 | P.PNPOD ---
Physical Exam Vital signs: Vital Signs 05/24/18 13:00 05/24/18 14:00 05/24/18 15:28 Temperature Pulse Rate 75 77 77 Respiratory Rate 13 Blood Pressure 156/65 H Pulse Oximetry 99 100 05/24/18 15:29 05/24/18 15:30 05/24/18 15:45 Temperature Pulse Rate 76 75 74 Respiratory Rate 6 L 7 L 13 Blood Pressure 157/64 H 162/67 H 155/61 H Pulse Oximetry 100 100 100 05/24/18 16:00 05/24/18 16:30 05/24/18 17:00 Temperature Pulse Rate 74 71 71 Respiratory Rate 16 10 L 15 Blood Pressure 157/63 H 150/62 H Pulse Oximetry 98 100 99 05/24/18 17:01 05/24/18 17:30 05/24/18 18:00 Temperature Pulse Rate 72 70 71 Respiratory Rate 16 14 17 Blood Pressure 154/64 H 143/63 H Pulse Oximetry 100 100 100 05/24/18 18:01 05/24/18 20:00 05/24/18 22:00 Temperature 98.6 F Pulse Rate 72 70 70 Respiratory Rate 16 13 23 Blood Pressure 178/76 H 149/65 H 153/64 H Pulse Oximetry 99 99 100 05/24/18 22:12 05/25/18 00:00 05/25/18 01:01 Temperature 99 F Pulse Rate 70 Respiratory Rate 23 Blood Pressure 158/65 H Pulse Oximetry 97 100 100 05/25/18 02:00 05/25/18 04:00 05/25/18 04:28 Temperature 98.0 F 98.7 F Pulse Rate 69 70 Respiratory Rate 12 16 Blood Pressure 157/67 H 162/69 H Pulse Oximetry 100 100 94 L 05/25/18 06:00 05/25/18 06:57 05/25/18 08:20 Temperature 98.6 F Pulse Rate 69 68 Respiratory Rate 13 Blood Pressure 145/64 H Pulse Oximetry 100 96 Intake & Output 05/24/18 05/25/18 05/25/18 18:59 06:59 18:59 Intake Total 580 / 580 50 / 50 200 / 200 Output Total 3000 / 3000 0 / 0 Balance -2420 / -2420 50 / 50 200 / 200 Weight 133 kg Intake: IV 480 / 480 50 / 50 Calcium Gluconate Inj 2 GM In 120 / 120 D5W Inj 100 ML @ 120 mls/hr IV. SIG ONCE ONE Rx#:[id number] Zosyn 2.25 GM Premix 50 ML @ 50 / 50 100 mls/hr IV.SIG Q12H [facility] Rx#: [id number] Oral 100 / 100 200 / 200 Output: Urine 0 / 0 0 / 0 Stool 0 / 0 0 / 0 Urine/Stool Mix 0 / 0 0 / 0 Hemodialysis Amount 3000 / 3000 Other: Date of Last Bowel Movement 05/24/18 05/24/18 05/24/18 # Bowel Movements 0 0 # Incontinent Bowel Movements 0 0 Medications and Allergies Active Medications: Active Medications Acetaminophen (Tylenol) 650 mg PO Q4H PRN PRN Reason: Temp > 100.4 Last Admin: 05/21/18 08:42 Dose: 650 mg Acetaminophen (Tylenol) 650 mg PO UNSCH PRN PRN Reason: SEE LABEL COMMENTS Hydrocodone Bitart/Acetaminophen ([place] 5/325) 1 tab PO Q4H PRN PRN Reason: PAIN SCALE 3 TO 5 Last Admin: 05/24/18 17:33 Dose: 1 tab Amlodipine Besylate (Norvasc) 5 mg PO DAILY [facility] Last Admin: 05/25/18 08:11 Dose: 5 mg Aspirin (Aspirin Chew) 81 mg PO DAILY [facility] Last Admin: 05/25/18 08:11 Dose: 81 mg Atorvastatin Calcium (Lipitor) 20 mg PO HS [facility] Last Admin: 05/24/18 20:34 Dose: 20 mg Bisacodyl (Dulcolax Supp) 10 mg RECTAL DAILY PRN PRN Reason: SEVERE CONSITIPATION Calcitriol (Rocaltrol) 0.25 mcg PO DAILY [facility] Last Admin: 05/25/18 08:10 Dose: 0.25 mcg Chlorhexidine Gluconate (Chlorhexidine 2% Cloth) 3 pack TOPICAL DAILY@0400 [facility] Stop: 05/27/18 03:59 Last Admin: 05/25/18 04:21 Dose: 3 pack Chlorhexidine Gluconate (Chlorhexidine 2% Cloth) 3 pack TOPICAL DAILY@0400 PRN PRN Reason: Extra cloth needed Stop: 05/27/18 03:59 Clonidine HCl (Catapres) 0.1 mg PO UNSCH PRN PRN Reason: SEE LABEL COMMENTS Dextrose (D50w Vial) 50 ml IV.PUSH UNSCH PRN PRN Reason: PER HYPOGLYCEMIA PROTOCOL Diphenhydramine HCl (Benadryl) 25 mg PO UNSCH PRN PRN Reason: SEE LABEL COMMENTS Epoetin Stefano (Epogen Inj) 6,000 unit IV.PUSH UNSCH PRN PRN Reason: SEE LABEL COMMENTS Last Admin: 05/21/18 20:35 Dose: 6,000 unit Gabapentin (Neurontin) 300 mg PO BID [facility] Last Admin: 05/25/18 08:10 Dose: 300 mg Gelatin (Gelfoam 12 Mm/7 Mm Topical) 1 foam TOPICAL PRN PRN PRN Reason: help stop bleeding from site Gentamicin Sulfate (Gentamicin Inj) 20 mg OTHER WITH DIALYSIS PRN PRN Reason: Dwell Gentamycin Lock Glucagon (Glucagon Inj) 1 mg OTHER PRN PRN PRN Reason: for Hypoglycemia Protocol Heparin Sodium (Porcine) (Heparin Inj) 8,000 units OTHER WITH DIALYSIS PRN PRN Reason: for machine prime Heparin Sodium (Porcine) (Heparin Inj) 1,000 units OTHER WITH DIALYSIS PRN PRN Reason: Dwell Heparin to Fill Catheter Hydralazine HCl (Apresoline Inj) 20 mg IV.PUSH Q4H PRN PRN Reason: SBP> OR = 180, DBP> OR = 100 Last Admin: 05/22/18 00:41 Dose: 20 mg Piperacillin/Tazobactam/Dextrose (Zosyn 2.25 Gm Premix) 50 mls @ 100 mls/hr IV.SIG Q12H [facility] Last Admin: 05/25/18 12:16 Dose: 100 mls/hr Albumin Human (Flexbumin 25% Inj) 100 mls @ 60 mls/hr IV.SIG WITH DIALYSIS PRN PRN Reason: hypotension / volume replace Sodium Chloride (Ns Inj) 1,000 mls @ 0 mls/hr OTHER .Q0M PRN PRN Reason: for prime and rinse back Sodium Chloride (Ns Inj) 1,000 mls @ 200 mls/hr OTHER .Q5H PRN PRN Reason: for dialyzer flush PRN Sodium Chloride (Ns Inj) 1,000 mls @ 0 mls/hr IV.CONT .Q0M PRN PRN Reason: hypotension / volume replace Acetaminophen (Ofirmev Inj) 1,000 mg in 100 mls @ 300 mls/hr IV.SIG Q6H PRN PRN Reason: FEVER Last Infusion: 05/21/18 17:00 Dose: Infused Vancomycin HCl 1,000 mg/ (Sodium Chloride) 250 mls @ 250 mls/hr IV.SIG WITH DIALYSIS [facility] Insulin Aspart (Novolog Insulin Correctional Sugar Inj) 0 unit SQ ACHS [facility]; Protocol Last Admin: 05/25/18 12:16 Dose: 1 unit Labetalol HCl (Trandate Inj) 10 mg IV.PUSH Q4H PRN PRN Reason: SBP>180, DBP>100, HR>65 Lactulose (Lactulose Liq) 30 ml PO DAILY PRN PRN Reason: SEVERE CONSITIPATION Mannitol (Mannitol Inj) 12.5 gm IV.PUSH UNSCH PRN PRN Reason: hypotension / volume replace Methocarbamol (Robaxin) 500 mg PO QID [facility] Last Admin: 05/25/18 12:16 Dose: 500 mg Metoprolol Tartrate (Lopressor) 25 mg PO BID [facility] Last Admin: 05/25/18 08:10 Dose: 25 mg Morphine Sulfate (Morphine Inj) 2 mg IV.PUSH Q3H PRN PRN Reason: PAIN 6-10 Last Admin: 05/25/18 12:15 Dose: 2 mg Nitroglycerin (Nitro-Bid 2% Oint) 1 inch TOPICAL Q6HR [facility] Last Admin: 05/25/18 12:16 Dose: 1 inch Nitroglycerin (Nitrostat Sl) 0.4 mg SL Q5M PRN PRN Reason: CHEST PAIN Ondansetron HCl (Zofran Inj) 4 mg IV.PUSH Q6H PRN PRN Reason: NAUSEA OR VOMITING Ondansetron HCl (Zofran Inj) 4 mg IV.PUSH UNSCH PRN PRN Reason: NAUSEA OR VOMITING Phenytoin Sodium (Dilantin) 200 mg PO BID [facility] Last Admin: 05/25/18 08:10 Dose: 200 mg Senna/Docusate Sodium (Winifred-Colace) 1 tab PO BID [facility] Last Admin: 05/25/18 08:11 Dose: 1 tab Sennosides (Senokot) 17.2 mg PO Q12H PRN PRN Reason: Moderate Constipation Sodium Chloride (Ns Flush) 2 ml IV.FLUSH BID [facility] Last Admin: 05/25/18 08:17 Dose: 2 ml Sodium Chloride (Ns Flush) 2 ml IV.FLUSH PRN PRN PRN Reason: FLUSH AFTER USING IV ACCESS Sodium Chloride (Ns Flush) 5 ml IV.FLUSH PRN PRN PRN Reason: flush each lumen during HD Ticagrelor (Brilinta) 90 mg PO BID SKIP Last Admin: 05/25/18 08:11 Dose: 90 mg Allergies Allergy/AdvReac Type Severity Reaction Status Date / Time *MDRO Multi-Drug Resistant AdvReac Intermediate Abdominal Uncoded 05/21/18 00:22 Organism Pain Home Medications Medication Instructions Recorded Confirmed Type aspirin 81 mg PO DAILY 02/20/18 05/21/18 History enalapril maleate 5 mg PO DAILY 02/20/18 05/21/18 History gabapentin 300 mg PO BID 02/20/18 05/21/18 History lisinopril 10 mg PO DAILY 02/20/18 05/21/18 History metoclopramide HCl 5 mg PO TID 02/20/18 05/21/18 History phenytoin sodium extended 200 mg PO BID 02/20/18 05/21/18 History [Phenytek] insulin detemir U-100 [Levemir 34 units SUB-Q DAILY 03/15/18 05/21/18 History U-100 Insulin] Results - Labs CBC & Chem 7: 05/25/18 10:35 05/25/18 10:35 Laboratory Results - last 24 hr 05/24/18 05/24/18 05/25/18 16:55 20:24 06:09 WBC RBC Hgb Hct MCV MCH MCHC RDW Plt Count MPV Neut % (Auto) Lymph % (Auto) Isabella % (Auto) Eos % (Auto) Baso % (Auto) Neut # (Auto) Lymph # (Auto) Isabella # (Auto) Eos # (Auto) Baso # (Auto) WBC Differential Differential Comment Sodium Potassium Chloride Carbon Dioxide Anion Gap BUN Creatinine Estimated GFR POC Glucose 165 H 220 H 179 H Random Glucose Calcium Prot Corrected Calcium Phosphorus Magnesium Total Bilirubin AST ALT Alkaline Phosphatase Total Protein Albumin 05/25/18 05/25/18 05/25/18 08:07 10:35 10:35 WBC 5.3 RBC 2.46 L Hgb 8.2 L Hct 23.5 L MCV 95.3 MCH 33.1 MCHC 34.8 RDW 15.1 Plt Count 100 L MPV 8.0 Neut % (Auto) 73.1 H Lymph % (Auto) 10.0 Isabella % (Auto) 12.5 H Eos % (Auto) 4.0 Baso % (Auto) 0.4 Neut # (Auto) 3.8 Lymph # (Auto) 0.5 L Isabella # (Auto) 0.7 Eos # (Auto) 0.2 Baso # (Auto) 0.0 WBC Differential . Differential Comment Auto diff final Sodium 133 L Potassium 4.4 Chloride 94 L Carbon Dioxide 31.0 Anion Gap 8 BUN 61 H Creatinine 7.04 H Estimated GFR 8 L POC Glucose 187 H Random Glucose 145 H Calcium 7.1 L* Prot Corrected Calcium 7.4 L* Phosphorus 5.9 H Magnesium 2.2 Total Bilirubin 0.7 AST 58 H ALT 53 Alkaline Phosphatase 139 H Total Protein 6.6 Albumin 2.4 L 05/25/18 11:55 WBC RBC Hgb Hct MCV MCH MCHC RDW Plt Count MPV Neut % (Auto) Lymph % (Auto) Isabella % (Auto) Eos % (Auto) Baso % (Auto) Neut # (Auto) Lymph # (Auto) Isabella # (Auto) Eos # (Auto) Baso # (Auto) WBC Differential Differential Comment Sodium Potassium Chloride Carbon Dioxide Anion Gap BUN Creatinine Estimated GFR POC Glucose 156 H Random Glucose Calcium Prot Corrected Calcium Phosphorus Magnesium Total Bilirubin AST ALT Alkaline Phosphatase Total Protein Albumin Microbiology 05/22/18 13:28 Blood - Peripheral Aerobic Blood Culture - Preliminary No growth in 3 days 05/22/18 13:28 Blood - Peripheral Anaerobic Blood Culture - Preliminary No growth in 3 days 05/22/18 13:41 Blood - Peripheral Aerobic Blood Culture - Preliminary No growth in 3 days 05/22/18 13:41 Blood - Peripheral Anaerobic Blood Culture - Preliminary No growth in 3 days 05/21/18 09:56 Blood - Peripheral Aerobic Blood Culture - Final S. aureus MRSA 05/21/18 09:56 Blood - Peripheral Anaerobic Blood Culture - Final S. aureus MRSA 05/21/18 09:56 Blood - Peripheral Aerobic Blood Culture - Final S. aureus MRSA 05/21/18 09:56 Blood - Peripheral Anaerobic Blood Culture - Final S. aureus MRSA - Imaging MRIs R and L still pending Assessment and Plan - Assessment (1) Osteomyelitis of right foot Code(s): M86.9 - Osteomyelitis, unspecified Status: Acute (2) Osteomyelitis of left foot Code(s): M86.9 - Osteomyelitis, unspecified Status: Acute
--- NOTE | 2018-05-25 13:37 | P.PNPOD ---
Physical Exam Vital signs: Vital Signs 05/24/18 14:00 05/24/18 15:28 05/24/18 15:29 Temperature Pulse Rate 77 77 76 Respiratory Rate 6 L Blood Pressure 157/64 H Pulse Oximetry 100 100 05/24/18 15:30 05/24/18 15:45 05/24/18 16:00 Temperature Pulse Rate 75 74 74 Respiratory Rate 7 L 13 16 Blood Pressure 162/67 H 155/61 H 157/63 H Pulse Oximetry 100 100 98 05/24/18 16:30 05/24/18 17:00 05/24/18 17:01 Temperature Pulse Rate 71 71 72 Respiratory Rate 10 L 15 16 Blood Pressure 150/62 H 154/64 H Pulse Oximetry 100 99 100 05/24/18 17:30 05/24/18 18:00 05/24/18 18:01 Temperature Pulse Rate 70 71 72 Respiratory Rate 14 17 16 Blood Pressure 143/63 H 178/76 H Pulse Oximetry 100 100 99 05/24/18 20:00 05/24/18 22:00 05/24/18 22:12 Temperature 98.6 F Pulse Rate 70 70 Respiratory Rate 13 23 Blood Pressure 149/65 H 153/64 H Pulse Oximetry 99 100 97 05/25/18 00:00 05/25/18 01:01 05/25/18 02:00 Temperature 99 F 98.0 F Pulse Rate 70 69 Respiratory Rate 23 12 Blood Pressure 158/65 H 157/67 H Pulse Oximetry 100 100 100 05/25/18 04:00 05/25/18 04:28 05/25/18 06:00 Temperature 98.7 F 98.6 F Pulse Rate 70 69 Respiratory Rate 16 13 Blood Pressure 162/69 H 145/64 H Pulse Oximetry 100 94 L 100 05/25/18 06:57 05/25/18 08:20 Temperature Pulse Rate 68 Respiratory Rate Blood Pressure Pulse Oximetry 96 Intake & Output 05/24/18 05/25/18 05/25/18 18:59 06:59 18:59 Intake Total 580 / 580 50 / 50 250 / 250 Output Total 3000 / 3000 0 / 0 Balance -2420 / -2420 50 / 50 250 / 250 Weight 133 kg Intake: IV 480 / 480 50 / 50 50 / 50 Calcium Gluconate Inj 2 GM In 120 / 120 D5W Inj 100 ML @ 120 mls/hr IV. SIG ONCE ONE Rx#:[id number] Zosyn 2.25 GM Premix 50 ML @ 50 / 50 50 / 50 100 mls/hr IV.SIG Q12H [facility] Rx#: [id number] Oral 100 / 100 200 / 200 Output: Urine 0 / 0 0 / 0 Stool 0 / 0 0 / 0 Urine/Stool Mix 0 / 0 0 / 0 Hemodialysis Amount 3000 / 3000 Other: Date of Last Bowel Movement 05/24/18 05/24/18 05/24/18 # Bowel Movements 0 0 # Incontinent Bowel Movements 0 0 Medications and Allergies Active Medications: Active Medications Acetaminophen (Tylenol) 650 mg PO Q4H PRN PRN Reason: Temp > 100.4 Last Admin: 05/21/18 08:42 Dose: 650 mg Acetaminophen (Tylenol) 650 mg PO UNSCH PRN PRN Reason: SEE LABEL COMMENTS Hydrocodone Bitart/Acetaminophen ([place] 5/325) 1 tab PO Q4H PRN PRN Reason: PAIN SCALE 3 TO 5 Last Admin: 05/24/18 17:33 Dose: 1 tab Amlodipine Besylate (Norvasc) 5 mg PO DAILY [facility] Last Admin: 05/25/18 08:11 Dose: 5 mg Aspirin (Aspirin Chew) 81 mg PO DAILY [facility] Last Admin: 05/25/18 08:11 Dose: 81 mg Atorvastatin Calcium (Lipitor) 20 mg PO HS [facility] Last Admin: 05/24/18 20:34 Dose: 20 mg Bisacodyl (Dulcolax Supp) 10 mg RECTAL DAILY PRN PRN Reason: SEVERE CONSITIPATION Calcitriol (Rocaltrol) 0.25 mcg PO DAILY [facility] Last Admin: 05/25/18 08:10 Dose: 0.25 mcg Chlorhexidine Gluconate (Chlorhexidine 2% Cloth) 3 pack TOPICAL DAILY@0400 [facility] Stop: 05/27/18 03:59 Last Admin: 05/25/18 04:21 Dose: 3 pack Chlorhexidine Gluconate (Chlorhexidine 2% Cloth) 3 pack TOPICAL DAILY@0400 PRN PRN Reason: Extra cloth needed Stop: 05/27/18 03:59 Clonidine HCl (Catapres) 0.1 mg PO UNSCH PRN PRN Reason: SEE LABEL COMMENTS Dextrose (D50w Vial) 50 ml IV.PUSH UNSCH PRN PRN Reason: PER HYPOGLYCEMIA PROTOCOL Diphenhydramine HCl (Benadryl) 25 mg PO UNSCH PRN PRN Reason: SEE LABEL COMMENTS Epoetin Stefano (Epogen Inj) 6,000 unit IV.PUSH UNSCH PRN PRN Reason: SEE LABEL COMMENTS Last Admin: 05/21/18 20:35 Dose: 6,000 unit Gabapentin (Neurontin) 300 mg PO BID [facility] Last Admin: 05/25/18 08:10 Dose: 300 mg Gelatin (Gelfoam 12 Mm/7 Mm Topical) 1 foam TOPICAL PRN PRN PRN Reason: help stop bleeding from site Gentamicin Sulfate (Gentamicin Inj) 20 mg OTHER WITH DIALYSIS PRN PRN Reason: Dwell Gentamycin Lock Glucagon (Glucagon Inj) 1 mg OTHER PRN PRN PRN Reason: for Hypoglycemia Protocol Heparin Sodium (Porcine) (Heparin Inj) 8,000 units OTHER WITH DIALYSIS PRN PRN Reason: for machine prime Heparin Sodium (Porcine) (Heparin Inj) 1,000 units OTHER WITH DIALYSIS PRN PRN Reason: Dwell Heparin to Fill Catheter Hydralazine HCl (Apresoline Inj) 20 mg IV.PUSH Q4H PRN PRN Reason: SBP> OR = 180, DBP> OR = 100 Last Admin: 05/22/18 00:41 Dose: 20 mg Piperacillin/Tazobactam/Dextrose (Zosyn 2.25 Gm Premix) 50 mls @ 100 mls/hr IV.SIG Q12H [facility] Last Infusion: 05/25/18 13:10 Dose: Infused Albumin Human (Flexbumin 25% Inj) 100 mls @ 60 mls/hr IV.SIG WITH DIALYSIS PRN PRN Reason: hypotension / volume replace Sodium Chloride (Ns Inj) 1,000 mls @ 0 mls/hr OTHER .Q0M PRN PRN Reason: for prime and rinse back Sodium Chloride (Ns Inj) 1,000 mls @ 200 mls/hr OTHER .Q5H PRN PRN Reason: for dialyzer flush PRN Sodium Chloride (Ns Inj) 1,000 mls @ 0 mls/hr IV.CONT .Q0M PRN PRN Reason: hypotension / volume replace Acetaminophen (Ofirmev Inj) 1,000 mg in 100 mls @ 300 mls/hr IV.SIG Q6H PRN PRN Reason: FEVER Last Infusion: 05/21/18 17:00 Dose: Infused Vancomycin HCl 1,000 mg/ (Sodium Chloride) 250 mls @ 250 mls/hr IV.SIG WITH DIALYSIS [facility] Insulin Aspart (Novolog Insulin Correctional Sugar Inj) 0 unit SQ ACHS [facility]; Protocol Last Admin: 05/25/18 12:16 Dose: 1 unit Labetalol HCl (Trandate Inj) 10 mg IV.PUSH Q4H PRN PRN Reason: SBP>180, DBP>100, HR>65 Lactulose (Lactulose Liq) 30 ml PO DAILY PRN PRN Reason: SEVERE CONSITIPATION Mannitol (Mannitol Inj) 12.5 gm IV.PUSH UNSCH PRN PRN Reason: hypotension / volume replace Methocarbamol (Robaxin) 500 mg PO QID [facility] Last Admin: 05/25/18 12:16 Dose: 500 mg Metoprolol Tartrate (Lopressor) 25 mg PO BID [facility] Last Admin: 05/25/18 08:10 Dose: 25 mg Morphine Sulfate (Morphine Inj) 2 mg IV.PUSH Q3H PRN PRN Reason: PAIN 6-10 Last Admin: 05/25/18 12:15 Dose: 2 mg Nitroglycerin (Nitro-Bid 2% Oint) 1 inch TOPICAL Q6HR [facility] Last Admin: 05/25/18 12:16 Dose: 1 inch Nitroglycerin (Nitrostat Sl) 0.4 mg SL Q5M PRN PRN Reason: CHEST PAIN Ondansetron HCl (Zofran Inj) 4 mg IV.PUSH Q6H PRN PRN Reason: NAUSEA OR VOMITING Ondansetron HCl (Zofran Inj) 4 mg IV.PUSH UNSCH PRN PRN Reason: NAUSEA OR VOMITING Phenytoin Sodium (Dilantin) 200 mg PO BID [facility] Last Admin: 05/25/18 08:10 Dose: 200 mg Senna/Docusate Sodium (Winifred-Colace) 1 tab PO BID [facility] Last Admin: 05/25/18 08:11 Dose: 1 tab Sennosides (Senokot) 17.2 mg PO Q12H PRN PRN Reason: Moderate Constipation Sodium Chloride (Ns Flush) 2 ml IV.FLUSH BID [facility] Last Admin: 05/25/18 08:17 Dose: 2 ml Sodium Chloride (Ns Flush) 2 ml IV.FLUSH PRN PRN PRN Reason: FLUSH AFTER USING IV ACCESS Sodium Chloride (Ns Flush) 5 ml IV.FLUSH PRN PRN PRN Reason: flush each lumen during HD Ticagrelor (Brilinta) 90 mg PO BID SKIP Last Admin: 05/25/18 08:11 Dose: 90 mg Allergies Allergy/AdvReac Type Severity Reaction Status Date / Time *MDRO Multi-Drug Resistant AdvReac Intermediate Abdominal Uncoded 05/21/18 00:22 Organism Pain Home Medications Medication Instructions Recorded Confirmed Type aspirin 81 mg PO DAILY 02/20/18 05/21/18 History enalapril maleate 5 mg PO DAILY 02/20/18 05/21/18 History gabapentin 300 mg PO BID 02/20/18 05/21/18 History lisinopril 10 mg PO DAILY 02/20/18 05/21/18 History metoclopramide HCl 5 mg PO TID 02/20/18 05/21/18 History phenytoin sodium extended 200 mg PO BID 02/20/18 05/21/18 History [Phenytek] insulin detemir U-100 [Levemir 34 units SUB-Q DAILY 03/15/18 05/21/18 History U-100 Insulin] Results - Labs CBC & Chem 7: 05/25/18 10:35 05/25/18 10:35 Laboratory Results - last 24 hr 05/24/18 05/24/18 05/25/18 16:55 20:24 06:09 WBC RBC Hgb Hct MCV MCH MCHC RDW Plt Count MPV Neut % (Auto) Lymph % (Auto) [place] % (Auto) Eos % (Auto) Baso % (Auto) Neut # (Auto) Lymph # (Auto) [place] # (Auto) Eos # (Auto) Baso # (Auto) WBC Differential Differential Comment Sodium Potassium Chloride Carbon Dioxide Anion Gap BUN Creatinine Estimated GFR POC Glucose 165 H 220 H 179 H Random Glucose Calcium Prot Corrected Calcium Phosphorus Magnesium Total Bilirubin AST ALT Alkaline Phosphatase Total Protein Albumin 05/25/18 05/25/18 05/25/18 08:07 10:35 10:35 WBC 5.3 RBC 2.46 L Hgb 8.2 L Hct 23.5 L MCV 95.3 MCH 33.1 MCHC 34.8 RDW 15.1 Plt Count 100 L MPV 8.0 Neut % (Auto) 73.1 H Lymph % (Auto) 10.0 [place] % (Auto) 12.5 H Eos % (Auto) 4.0 Baso % (Auto) 0.4 Neut # (Auto) 3.8 Lymph # (Auto) 0.[address] [place] # (Auto) 0.7 Eos # (Auto) 0.2 Baso # (Auto) 0.0 WBC Differential . Differential Comment Auto diff final Sodium 133 L Potassium 4.4 Chloride 94 L Carbon Dioxide 31.0 Anion Gap 8 BUN 61 H Creatinine 7.04 H Estimated GFR 8 L POC Glucose 187 H Random Glucose 145 H Calcium 7.1 L* Prot Corrected Calcium 7.4 L* Phosphorus 5.9 H Magnesium 2.2 Total Bilirubin 0.7 AST 58 H ALT 53 Alkaline Phosphatase 139 H Total Protein 6.6 Albumin 2.4 L 05/25/18 11:55 WBC RBC Hgb Hct MCV MCH MCHC RDW Plt Count MPV Neut % (Auto) Lymph % (Auto) [place] % (Auto) Eos % (Auto) Baso % (Auto) Neut # (Auto) Lymph # (Auto) [place] # (Auto) Eos # (Auto) Baso # (Auto) WBC Differential Differential Comment Sodium Potassium Chloride Carbon Dioxide Anion Gap BUN Creatinine Estimated GFR POC Glucose 156 H Random Glucose Calcium Prot Corrected Calcium Phosphorus Magnesium Total Bilirubin AST ALT Alkaline Phosphatase Total Protein Albumin Microbiology 05/22/18 13:28 Blood - Peripheral Aerobic Blood Culture - Preliminary No growth in 3 days 05/22/18 13:28 Blood - Peripheral Anaerobic Blood Culture - Preliminary No growth in 3 days 05/22/18 13:41 Blood - Peripheral Aerobic Blood Culture - Preliminary No growth in 3 days 05/22/18 13:41 Blood - Peripheral Anaerobic Blood Culture - Preliminary No growth in 3 days 05/21/18 09:56 Blood - Peripheral Aerobic Blood Culture - Final S. aureus MRSA 05/21/18 09:56 Blood - Peripheral Anaerobic Blood Culture - Final S. aureus MRSA 05/21/18 09:56 Blood - Peripheral Aerobic Blood Culture - Final S. aureus MRSA 05/21/18 09:56 Blood - Peripheral Anaerobic Blood Culture - Final S. aureus MRSA Assessment and Plan - Assessment (1) Osteomyelitis of right foot Code(s): M86.9 - Osteomyelitis, unspecified Status: Acute (2) Osteomyelitis of left foot Code(s): M86.9 - Osteomyelitis, unspecified Status: Acute - Plan Vascular surgery present bedside to discuss, as well. Discussed I agree with awaiting further imaging before making any decisions about treatment options. Discussed I am ok with moving forward with ordering CT scan with and without contrast to R and L foot if MRI with/without bilateral feet cannot be completed due to defibrillator. Discussed with patient that right foot, at a minimum, will likely need to have complete amputation of residual 2nd/3rd digits,due to ulceration and exposed bone. Vascular present and agrees, but that may have healing complications due to 1 vessel runoff R side. Discussed with patient I do agree with vascular recommendation for BKA left side due to decreased flow, necrotic heel, and forefoot infection combined, but again will be ok with waiting on further imaging to make decision. If patient does refuse BKA, he does realize that any limb salvage attempt at the level of the foot would have a high risk of failure to right or left lower extremities due to decreased flow. Dr Rueda will be taking over care for holiday weekend to discuss treatment options based on findings of CT vs MRI in the coming days.
--- NOTE | 2018-05-25 14:18 | P.PNVS ---
Subjective Subjective/Hospital Course: Pt w/o complaints Objective Vital Signs / I&O: Vital Signs 05/24/18 15:28 05/24/18 15:29 05/24/18 15:30 Temperature Pulse Rate 77 76 75 Respiratory Rate 6 L 7 L Blood Pressure 157/64 H 162/67 H Pulse Oximetry 100 100 100 05/24/18 15:45 05/24/18 16:00 05/24/18 16:30 Temperature Pulse Rate 74 74 71 Respiratory Rate 13 16 10 L Blood Pressure 155/61 H 157/63 H 150/62 H Pulse Oximetry 100 98 100 05/24/18 17:00 05/24/18 17:01 05/24/18 17:30 Temperature Pulse Rate 71 72 70 Respiratory Rate 15 16 14 Blood Pressure 154/64 H 143/63 H Pulse Oximetry 99 100 100 05/24/18 18:00 05/24/18 18:01 05/24/18 20:00 Temperature 98.6 F Pulse Rate 71 72 70 Respiratory Rate 17 16 13 Blood Pressure 178/76 H 149/65 H Pulse Oximetry 100 99 99 05/24/18 22:00 05/24/18 22:12 05/25/18 00:00 Temperature 99 F Pulse Rate 70 70 Respiratory Rate 23 23 Blood Pressure 153/64 H 158/65 H Pulse Oximetry 100 97 100 05/25/18 01:01 05/25/18 02:00 05/25/18 04:00 Temperature 98.0 F 98.7 F Pulse Rate 69 70 Respiratory Rate 12 16 Blood Pressure 157/67 H 162/69 H Pulse Oximetry 100 100 100 05/25/18 04:28 05/25/18 06:00 05/25/18 06:57 Temperature 98.6 F Pulse Rate 69 68 Respiratory Rate 13 Blood Pressure 145/64 H Pulse Oximetry 94 L 100 05/25/18 08:00 05/25/18 08:20 05/25/18 12:00 Temperature Pulse Rate Respiratory Rate 12 12 Blood Pressure Pulse Oximetry 96 Intake & Output 05/24/18 05/25/18 05/25/18 18:59 06:59 18:59 Intake Total 580 / 580 50 / 50 250 / 250 Output Total 3000 / 3000 0 / 0 Balance -2420 / -2420 50 / 50 250 / 250 Weight 133 kg Intake: IV 480 / 480 50 / 50 50 / 50 Calcium Gluconate Inj 2 GM In 120 / 120 D5W Inj 100 ML @ 120 mls/hr IV. SIG ONCE ONE Rx#:[id number] Zosyn 2.25 GM Premix 50 ML @ 50 / 50 50 / 50 100 mls/hr IV.SIG Q12H [facility] Rx#: [id number] Oral 100 / 100 200 / 200 Output: Urine 0 / 0 0 / 0 Stool 0 / 0 0 / 0 Urine/Stool Mix 0 / 0 0 / 0 Hemodialysis Amount 3000 / 3000 Other: Date of Last Bowel Movement 05/24/18 05/24/18 05/24/18 # Bowel Movements 0 0 # Incontinent Bowel Movements 0 0 Physical Exam: Left heel wound with purulent discharge Nonhealing right toe amputation site with exposed bone Left upper extremity AV graft without signs of infection and good thrill. Laboratory Results - last 24 hr 05/24/18 05/24/18 05/25/18 16:55 20:24 06:09 WBC RBC Hgb Hct MCV MCH MCHC RDW Plt Count MPV Neut % (Auto) Lymph % (Auto) [place] % (Auto) Eos % (Auto) Baso % (Auto) Neut # (Auto) Lymph # (Auto) [place] # (Auto) Eos # (Auto) Baso # (Auto) WBC Differential Differential Comment Sodium Potassium Chloride Carbon Dioxide Anion Gap BUN Creatinine Estimated GFR POC Glucose 165 H 220 H 179 H Random Glucose Calcium Prot Corrected Calcium Phosphorus Magnesium Total Bilirubin AST ALT Alkaline Phosphatase Total Protein Albumin 05/25/18 05/25/18 05/25/18 08:07 10:35 10:35 WBC 5.3 RBC 2.46 L Hgb 8.2 L Hct 23.5 L MCV 95.3 MCH 33.1 MCHC 34.8 RDW 15.1 Plt Count 100 L MPV 8.0 Neut % (Auto) 73.1 H Lymph % (Auto) 10.0 [place] % (Auto) 12.5 H Eos % (Auto) 4.0 Baso % (Auto) 0.4 Neut # (Auto) 3.8 Lymph # (Auto) 0.5 L [place] # (Auto) 0.7 Eos # (Auto) 0.2 Baso # (Auto) 0.0 WBC Differential . Differential Comment Auto diff final Sodium 133 L Potassium 4.4 Chloride 94 L Carbon Dioxide 31.0 Anion Gap 8 BUN 61 H Creatinine 7.04 H Estimated GFR 8 L POC Glucose 187 H Random Glucose 145 H Calcium 7.1 L* Prot Corrected Calcium 7.4 L* Phosphorus 5.9 H Magnesium 2.2 Total Bilirubin 0.7 AST 58 H ALT 53 Alkaline Phosphatase 139 H Total Protein 6.6 Albumin 2.4 L 05/25/18 11:55 WBC RBC Hgb Hct MCV MCH MCHC RDW Plt Count MPV Neut % (Auto) Lymph % (Auto) [place] % (Auto) Eos % (Auto) Baso % (Auto) Neut # (Auto) Lymph # (Auto) [place] # (Auto) Eos # (Auto) Baso # (Auto) WBC Differential Differential Comment Sodium Potassium Chloride Carbon Dioxide Anion Gap BUN Creatinine Estimated GFR POC Glucose 156 H Random Glucose Calcium Prot Corrected Calcium Phosphorus Magnesium Total Bilirubin AST ALT Alkaline Phosphatase Total Protein Albumin Microbiology 05/22/18 13:28 Aerobic Blood Culture - Preliminary Blood - Peripheral No growth in 3 days Anaerobic Blood Culture - Preliminary No growth in 3 days 05/22/18 13:41 Aerobic Blood Culture - Preliminary Blood - Peripheral No growth in 3 days Anaerobic Blood Culture - Preliminary No growth in 3 days 05/21/18 09:56 Aerobic Blood Culture - Final Blood - Peripheral S. aureus MRSA Anaerobic Blood Culture - Final S. aureus MRSA 05/21/18 09:56 Aerobic Blood Culture - Final Blood - Peripheral S. aureus MRSA Anaerobic Blood Culture - Final S. aureus MRSA Impressions Aorta w/Runoff CTA 05/23/18 00:00 CONCLUSION: 1. Patent inflow and outflow bilaterally. 2. Heavily calcified trifurcation vessels limits their patency evaluation. On the right there is possible straight-line flow through the anterior tibial artery and peroneal artery. The posterior tibial artery is clearly occluded. On the left there is a similar appearance. 3. Atrophic kidneys. 4. Splenomegaly. Foot X-Ray 05/23/18 00:00 CONCLUSION: Right bony change as described above. Ulcer seen adjacent to the distal aspect of first metatarsal. Foot X-Ray 05/23/18 00:00 CONCLUSION: Chronic change. Upper Extremity Ultrasound 05/23/18 00:00 CONCLUSION: 1. Venous mapping as detailed above. Assessment and Plan - Assessment (1) Fever Code(s): R50.9 - Fever, unspecified Status: Acute - Plan 63 yo male with fever and now bacteremia I had a long discussion at the presence of Dr. Burgos with the patient and his mother. Left lower extremity limb salvage can be attempted with the understanding of high failure risk due to severe microvascular disease. Left BKA is the patient's other option. The patient would like more time to make his final decision. Casper Collins MD [phone] (1) Fever Qualifiers: Fever type: unspecified Qualified Code(s): R50.9 - Fever, unspecified
[2018-05-25] MEDS: Vancomycin Inj 1,000 MG in Sodium Chlor 0.9% Inj 250 ML IV.SIG SCH (17:54)
[2018-05-25] MEDS: hydrALAZINE HCl Inj 20 MG/ML Vial IV.PUSH PRN (20:00)
[2018-05-26] MEDS: Morphine Sulfate Inj 2 MG/ML Vial IV.PUSH PRN ×5 (05:55→21:51)
[2018-05-26] MEDS: Chlorhexidine Gluconate 2% 1 Pack (2 Cloths) TOPICAL SCH (05:56)
[2018-05-26 08:36] LABS: Baso % (Auto) 0.4 % (0.0-2.0); Eos # (Auto) 0.3 th/mm3 (0.0-0.4); Eos % (Auto) 4.4 % (0.0-4.0); Hematocrit 24.9 % (39.0-51.0); Hemoglobin 8.5 gm/dL (13.0-17.0); Lymph # (Auto) 0.8 th/mm3 (1.0-4.8); Lymph % (Auto) 12.2 % (9.0-44.0); Mean Corpuscular HGB Conc 34.1 % (32.0-36.0); Mean Corpuscular Hemoglobin 33.2 pg (27.0-34.0); Mean Corpuscular Volume 97.4 fL (80.0-100.0); Mono # (Auto) 0.5 th/mm3 (0.0-0.9); Mono % (Auto) 8.5 % (0.0-8.0); Neut # (Auto) 4.7 th/mm3 (1.8-7.7); Neut % (Auto) 74.5 % (16.0-70.0); Platelet Count 109 th/mm3 (150-450); Red Blood Count 2.56 mil/mm3 (4.50-5.90); Red Cell Distribution Width 15.1 % (11.6-17.2); White Blood Count 6.3 th/mm3 (4.0-11.0)
[2018-05-26] MEDS: Phenytoin Sodium 100 MG Capsule PO SCH ×2 (08:46→21:41)
[2018-05-26] MEDS: Sodium Chloride 0.9% 2 ML Flush BID IV.FLUSH SCH ×2 (08:47→21:43)
[2018-05-26] MEDS: Gabapentin 300 MG Capsule PO SCH ×2 (08:47→21:41)
[2018-05-26] MEDS: Metoprolol Tartrate 25 MG Tablet PO SCH ×2 (08:47→21:40)
[2018-05-26] MEDS: Senna/Docusate Sodium 8.6/50 MG Tablet PO SCH ×2 (08:48→21:41)
[2018-05-26] MEDS: Methocarbamol 500 MG Tablet PO SCH ×4 (08:48→21:41)
--- NOTE | 2018-05-26 08:48 | P.PNIM ---
Subjective Interval history: f/u; bilateral foot infection in no acute distress. afebrile. has some pain to both feet. Physical Exam Vital signs: Vital Signs 05/25/18 10:00 05/25/18 12:00 05/25/18 14:00 Temperature 98.7 F Pulse Rate 66 66 66 Respiratory Rate 12 Blood Pressure 147/65 H Pulse Oximetry 96 05/25/18 16:00 05/25/18 18:00 05/25/18 20:00 Temperature 98 F 98 F Pulse Rate 68 74 79 Respiratory Rate 11 L 18 Blood Pressure 151/63 H 213/87 H Pulse Oximetry 97 98 05/25/18 20:26 05/25/18 22:00 05/26/18 00:00 Temperature 99.0 F Pulse Rate 79 74 Respiratory Rate 17 Blood Pressure 165/67 H Pulse Oximetry 95 96 05/26/18 02:00 05/26/18 04:00 05/26/18 06:00 Temperature 98.3 F Pulse Rate 75 72 72 Respiratory Rate 12 Blood Pressure 175/72 H Pulse Oximetry 97 05/26/18 08:05 Temperature Pulse Rate Respiratory Rate Blood Pressure Pulse Oximetry 99 Intake & Output 05/25/18 05/26/18 05/26/18 18:59 06:59 18:59 Intake Total 400 / 400 110 / 110 Output Total 4000 / 4000 40 / 40 Balance -3600 / -3600 70 / 70 Weight 130 kg Intake: IV 200 / 200 50 / 50 Zosyn 2.25 GM Premix 50 ML @ 50 / 50 50 / 50 100 mls/hr IV.SIG Q12H [facility] Rx#: [id number] Vancomycin Inj 1,000 MG In NS 150 / 150 Inj 250 ML @ 250 mls/hr IV.SIG WITH DIALYSIS SKIP Rx#:[id number] Oral 200 / 200 60 / 60 Output: Urine 0 / 0 40 / 40 Stool 0 / 0 0 / 0 Urine/Stool Mix 0 / 0 0 / 0 Hemodialysis Amount 4000 / 4000 Other: Date of Last Bowel Movement 05/24/18 05/24/18 # Bowel Movements 0 0 # Incontinent Bowel Movements 0 0 - Constitutional no acute distress - Routine Respiratory Exam Present: CTA bilaterally - Routine Cardiovascular Exam Present: RRR - Routine Abdominal Exam Present: soft - Routine Extremities Exam Comments: open wound noted on the bottom of the left foot. - Routine Neurological Exam Present: alert, oriented X3 Results - Labs CBC & Chem 7: 05/26/18 08:10 05/25/18 10:35 Laboratory Results - last 24 hr 05/25/18 05/25/18 05/25/18 10:35 10:35 11:55 WBC 5.3 RBC 2.46 L Hgb 8.2 L Hct 23.5 L MCV 95.3 MCH 33.1 MCHC 34.8 RDW 15.1 Plt Count 100 L MPV 8.0 Neut % (Auto) 73.1 H Lymph % (Auto) 10.0 [place] % (Auto) 12.5 H Eos % (Auto) 4.0 Baso % (Auto) 0.4 Neut # (Auto) 3.8 Lymph # (Auto) 0.5 L [place] # (Auto) 0.7 Eos # (Auto) 0.2 Baso # (Auto) 0.0 WBC Differential . Differential Comment Auto diff final Sodium 133 L Potassium 4.4 Chloride 94 L Carbon Dioxide 31.0 Anion Gap 8 BUN 61 H Creatinine 7.04 H Estimated GFR 8 L POC Glucose 156 H Random Glucose 145 H Calcium 7.1 L* Prot Corrected Calcium 7.4 L* Phosphorus 5.9 H Magnesium 2.2 Total Bilirubin 0.7 AST 58 H ALT 53 Alkaline Phosphatase 139 H Total Protein 6.6 Albumin 2.4 L 05/25/18 05/25/18 05/26/18 17:04 21:09 08:10 WBC 6.3 RBC 2.56 L Hgb 8.5 L Hct 24.9 L MCV 97.4 MCH 33.2 MCHC 34.1 RDW 15.1 Plt Count 109 L MPV 8.0 Neut % (Auto) 74.5 H Lymph % (Auto) 12.2 [place] % (Auto) 8.5 H Eos % (Auto) 4.4 H Baso % (Auto) 0.4 Neut # (Auto) 4.7 Lymph # (Auto) 0.8 L [place] # (Auto) 0.5 Eos # (Auto) 0.3 Baso # (Auto) 0.0 WBC Differential . Differential Comment Auto diff final Sodium Potassium Chloride Carbon Dioxide Anion Gap BUN Creatinine Estimated GFR POC Glucose 114 H 237 H Random Glucose Calcium Prot Corrected Calcium Phosphorus Magnesium Total Bilirubin AST ALT Alkaline Phosphatase Total Protein Albumin Microbiology 05/22/18 13:28 Blood - Peripheral Aerobic Blood Culture - Preliminary No growth in 3 days 05/22/18 13:28 Blood - Peripheral Anaerobic Blood Culture - Preliminary No growth in 3 days 05/22/18 13:41 Blood - Peripheral Aerobic Blood Culture - Preliminary No growth in 3 days 05/22/18 13:41 Blood - Peripheral Anaerobic Blood Culture - Preliminary No growth in 3 days Assessment and Plan - Assessment (1) Chest pain Code(s): R07.9 - Chest pain, unspecified Status: Acute (2) ESRD (end stage renal disease) on dialysis Code(s): N18.6 - End stage renal disease; Z99.2 - Dependence on renal dialysis Status: Acute (3) DM (diabetes mellitus) Code(s): E11.9 - Type 2 diabetes mellitus without complications Status: Chronic - Plan This patient is a 63-year-old male with a diagnosis of hypertension, dyslipidemia, end-stage renal disease on hemodialysis Wednesday and Wednesday, coronary artery disease status post stent in the past. 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 The patient initially was brought into the emergency department with complaints of chest pain. 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 After the patient was admitted he was found to be having fevers. He was found to have left upper extremity erythema over the AV fistula. Blood cultures were drawn and the patient was started on IV antibiotics. Blood cultures grew MRSA. -Sepsis secondary to MRSA bacteremia -bilateral feet ulceration/ infection continue with IV antibiotics per ID. CT of the feet pending. continue wound care. podiatry and vascular surgery following. - Acute encephalopathy likely resolved - Hypertension/dyslipidemia/coronary artery disease Continue aspirin, statin, brilinta, beta-carrie; will increase Amlodipine to 10 mg daily. - Seizure disorder Continue phenytoin - End-stage renal disease on hemodialysis Nephrology following. Patient is thrombocytopenic, no pharmacotherapy for DVT prophylaxis. No SCDs, patient has multiple wounds of the shins and feet bilaterally. will transfer to floor. Discharge Planning: w/u in progress- awaiting podiatry/ vascular surgery f/u and recommendations. (1) Chest pain Qualifiers: Chest pain type: other chest pain Qualified Code(s): R07.89 - Other chest pain; R07.8 - Other chest pain
[2018-05-26] MEDS: Calcitriol 0.25 MCG Capsule PO SCH (08:49)
[2018-05-26 08:58] LABS: Albumin 2.5 g/dL (3.4-5.0); Calcium 7.4 mg/dL (8.5-10.1); Carbon Dioxide 28.4 meq/L (21.0-32.0); Magnesium 2.2 mg/dL (1.5-2.5); Phosphorus 4.6 mg/dL (2.5-4.9); Potassium 4.7 meq/L (3.5-5.1); Total Protein 6.9 g/dL (6.4-8.2)
[2018-05-26] MEDS: amLODIPine 5 MG Tablet PO SCH (09:31)
[2018-05-26] MEDS: Insulin NovoLOG Aspart Correctional Sugar Inj SQ SCH ×4 (09:43→22:59)
[2018-05-26] MEDS: hydrALAZINE HCl Inj 20 MG/ML Vial IV.PUSH PRN (10:48)
--- NOTE | 2018-05-26 11:06 | P.PNVS ---
Subjective Subjective/Hospital Course: Pt w/o complaints Objective Vital Signs / I&O: Vital Signs 05/25/18 12:00 05/25/18 14:00 05/25/18 16:00 Temperature 98.7 F 98 F Pulse Rate 66 66 68 Respiratory Rate 12 11 L Blood Pressure 147/65 H 151/63 H Pulse Oximetry 96 97 05/25/18 18:00 05/25/18 20:00 05/25/18 20:26 Temperature 98 F Pulse Rate 74 79 Respiratory Rate 18 Blood Pressure 213/87 H Pulse Oximetry 98 95 05/25/18 22:00 05/26/18 00:00 05/26/18 02:00 Temperature 99.0 F Pulse Rate 79 74 75 Respiratory Rate 17 Blood Pressure 165/67 H Pulse Oximetry 96 05/26/18 04:00 05/26/18 06:00 05/26/18 07:00 Temperature 98.3 F Pulse Rate 72 72 72 Respiratory Rate 12 Blood Pressure 175/72 H Pulse Oximetry 97 05/26/18 08:05 Temperature Pulse Rate Respiratory Rate Blood Pressure Pulse Oximetry 99 Intake & Output 05/25/18 05/26/18 05/26/18 18:59 06:59 18:59 Intake Total 400 / 400 110 / 110 Output Total 4000 / 4000 40 / 40 Balance -3600 / -3600 70 / 70 Weight 130 kg Intake: IV 200 / 200 50 / 50 Zosyn 2.25 GM Premix 50 ML @ 50 / 50 50 / 50 100 mls/hr IV.SIG Q12H SKIP Rx#: [id number] Vancomycin Inj 1,000 MG In NS 150 / 150 Inj 250 ML @ 250 mls/hr IV.SIG WITH DIALYSIS SKIP Rx#:[id number] Oral 200 / 200 60 / 60 Output: Urine 0 / 0 40 / 40 Stool 0 / 0 0 / 0 Urine/Stool Mix 0 / 0 0 / 0 Hemodialysis Amount 4000 / 4000 Other: Date of Last Bowel Movement 05/24/18 05/24/18 # Bowel Movements 0 0 # Incontinent Bowel Movements 0 0 Physical Exam: Left heel ulcer with purulent discharge, left first to ulcer with purulent discharge Right nonhealing toe amputation with exposed bone Laboratory Results - last 24 hr 05/25/18 05/25/18 05/25/18 10:35 11:55 17:04 WBC RBC Hgb Hct MCV MCH MCHC RDW Plt Count MPV Neut % (Auto) Lymph % (Auto) [place] % (Auto) Eos % (Auto) Baso % (Auto) Neut # (Auto) Lymph # (Auto) [place] # (Auto) Eos # (Auto) Baso # (Auto) WBC Differential Differential Comment Sodium 133 L Potassium 4.4 Chloride 94 L Carbon Dioxide 31.0 Anion Gap 8 BUN 61 H Creatinine 7.04 H Estimated GFR 8 L POC Glucose 156 H 114 H Random Glucose 145 H Calcium 7.1 L* Prot Corrected Calcium 7.4 L* Phosphorus 5.9 H Magnesium 2.2 Total Bilirubin 0.7 AST 58 H ALT 53 Alkaline Phosphatase 139 H Total Protein 6.6 Albumin 2.4 L 05/25/18 05/26/18 05/26/18 21:09 08:10 08:10 WBC 6.3 RBC 2.56 L Hgb 8.5 L Hct 24.9 L MCV 97.4 MCH 33.2 MCHC 34.1 RDW 15.1 Plt Count 109 L MPV 8.0 Neut % (Auto) 74.5 H Lymph % (Auto) 12.2 [place] % (Auto) 8.5 H Eos % (Auto) 4.4 H Baso % (Auto) 0.4 Neut # (Auto) 4.7 Lymph # (Auto) 0.8 L [place] # (Auto) 0.5 Eos # (Auto) 0.3 Baso # (Auto) 0.0 WBC Differential . Differential Comment Auto diff final Sodium 136 Potassium 4.7 Chloride 96 L Carbon Dioxide 28.4 Anion Gap 12 BUN 47 H Creatinine 5.98 H Estimated GFR 10 L POC Glucose 237 H Random Glucose 143 H Calcium 7.4 L* Prot Corrected Calcium 7.5 L Phosphorus 4.6 D Magnesium 2.2 Total Bilirubin 0.7 AST 58 H ALT 47 Alkaline Phosphatase 149 H Total Protein 6.9 Albumin 2.5 L 05/26/18 08:33 WBC RBC Hgb Hct MCV MCH MCHC RDW Plt Count MPV Neut % (Auto) Lymph % (Auto) [place] % (Auto) Eos % (Auto) Baso % (Auto) Neut # (Auto) Lymph # (Auto) [place] # (Auto) Eos # (Auto) Baso # (Auto) WBC Differential Differential Comment Sodium Potassium Chloride Carbon Dioxide Anion Gap BUN Creatinine Estimated GFR POC Glucose 152 H Random Glucose Calcium Prot Corrected Calcium Phosphorus Magnesium Total Bilirubin AST ALT Alkaline Phosphatase Total Protein Albumin Microbiology 05/22/18 13:28 Aerobic Blood Culture - Preliminary Blood - Peripheral No growth in 4 days Anaerobic Blood Culture - Preliminary No growth in 4 days 05/22/18 13:41 Aerobic Blood Culture - Preliminary Blood - Peripheral No growth in 4 days Anaerobic Blood Culture - Preliminary No growth in 4 days Assessment and Plan - Assessment (1) Fever Code(s): R50.9 - Fever, unspecified Status: Acute - Plan 63 yo male with fever and now bacteremia Patient agrees to left below-knee amputation. Risk benefits and alternatives were explained to him. Patient scheduled for surgery in [facility] Casper Collins MD [phone] (1) Fever Qualifiers: Fever type: unspecified Qualified Code(s): R50.9 - Fever, unspecified
[2018-05-26] MEDS: Piperacil/Tazo 2.25 GM Premix 50 ML IV.SIG SCH (14:21)
--- NOTE | 2018-05-26 15:00 | P.PNPOD ---
Subjective Interval history: Patient seen at bedside this am. LLE OM RLE OM Physical Exam Vital signs: Vital Signs 05/25/18 16:00 05/25/18 17:15 05/25/18 17:30 Temperature 98 F Pulse Rate 68 71 Respiratory Rate 11 L 16 Blood Pressure 151/63 H 160/68 H 174/73 H Pulse Oximetry 97 94 L 05/25/18 17:46 05/25/18 18:00 05/25/18 18:01 Temperature Pulse Rate 93 H 74 73 Respiratory Rate 13 15 13 Blood Pressure 188/72 H 191/75 H Pulse Oximetry 98 97 97 05/25/18 19:00 05/25/18 19:01 05/25/18 19:48 Temperature Pulse Rate 75 77 79 Respiratory Rate 12 11 L 13 Blood Pressure 195/78 H 218/87 H Pulse Oximetry 95 96 98 05/25/18 20:00 05/25/18 20:13 05/25/18 20:26 Temperature 98 F Pulse Rate 79 80 Respiratory Rate 18 18 Blood Pressure 213/87 H 182/74 H Pulse Oximetry 98 99 95 05/25/18 21:00 05/25/18 21:21 05/25/18 22:00 Temperature Pulse Rate 79 81 78 Respiratory Rate 15 14 17 Blood Pressure 190/79 H 193/79 H 193/78 H Pulse Oximetry 98 98 98 05/25/18 23:00 05/26/18 00:00 05/26/18 01:00 Temperature 99.0 F Pulse Rate 72 77 74 Respiratory Rate 17 17 19 Blood Pressure 162/67 H 165/67 H 167/71 H Pulse Oximetry 97 96 97 05/26/18 02:00 05/26/18 03:00 05/26/18 04:00 Temperature 98.3 F Pulse Rate 75 76 73 Respiratory Rate 14 14 12 Blood Pressure 166/70 H 165/71 H 183/77 H Pulse Oximetry 97 92 L 98 05/26/18 05:00 05/26/18 06:00 05/26/18 07:00 Temperature Pulse Rate 73 72 72 Respiratory Rate 22 12 14 Blood Pressure 173/73 H 175/72 H 180/77 H Pulse Oximetry 96 97 93 L 05/26/18 08:00 05/26/18 08:05 05/26/18 08:44 Temperature 98.7 F Pulse Rate 72 75 Respiratory Rate 12 22 Blood Pressure 186/76 H 183/74 H Pulse Oximetry 96 99 95 05/26/18 09:00 05/26/18 09:01 05/26/18 10:00 Temperature Pulse Rate 75 75 72 Respiratory Rate 28 H 17 17 Blood Pressure 190/78 H 185/78 H Pulse Oximetry 99 98 96 05/26/18 12:00 Temperature 97.8 F Pulse Rate 74 Respiratory Rate 18 Blood Pressure 152/67 H Pulse Oximetry 97 Intake & Output 05/25/18 05/26/18 05/26/18 18:59 06:59 18:59 Intake Total 400 / 400 110 / 110 Output Total 4000 / 4000 40 / 40 Balance -3600 / -3600 70 / 70 Weight 130 kg Intake: IV 200 / 200 50 / 50 Zosyn 2.25 GM Premix 50 ML @ 50 / 50 50 / 50 100 mls/hr IV.SIG Q12H COUNTS INCLUDE 234 BEDS AT THE [facility] Rx#: [id number] Vancomycin Inj 1,000 MG In NS 150 / 150 Inj 250 ML @ 250 mls/hr IV.SIG WITH DIALYSIS COUNTS INCLUDE 234 BEDS AT THE [facility] Rx#:[id number] Oral 200 / 200 60 / 60 Output: Urine 0 / 0 40 / 40 Stool 0 / 0 0 / 0 Urine/Stool Mix 0 / 0 0 / 0 Hemodialysis Amount 4000 / 4000 Other: Date of Last Bowel Movement 05/24/18 05/24/18 05/24/18 # Bowel Movements 0 0 # Incontinent Bowel Movements 0 0 Narrative: RLE + exposed bone at the 2nd digit stump and drainage from right 3rd digit stump. LE is warm to warm. NVS diminished. Medications and Allergies Active Medications: Active Medications Acetaminophen (Tylenol) 650 mg PO Q4H PRN PRN Reason: Temp > 100.4 Last Admin: 05/21/18 08:42 Dose: 650 mg Acetaminophen (Tylenol) 650 mg PO UNSCH PRN PRN Reason: SEE LABEL COMMENTS Hydrocodone Bitart/Acetaminophen ([place] 5/325) 1 tab PO Q4H PRN PRN Reason: PAIN SCALE 3 TO 5 Last Admin: 05/24/18 17:33 Dose: 1 tab Amlodipine Besylate (Norvasc) 10 mg PO DAILY COUNTS INCLUDE 234 BEDS AT THE [facility] Last Admin: 05/26/18 09:31 Dose: 10 mg Aspirin (Aspirin Chew) 81 mg PO DAILY COUNTS INCLUDE 234 BEDS AT THE [facility] Last Admin: 05/26/18 08:45 Dose: 81 mg Atorvastatin Calcium (Lipitor) 20 mg PO HS COUNTS INCLUDE 234 BEDS AT THE [facility] Last Admin: 05/25/18 21:03 Dose: 20 mg Bisacodyl (Dulcolax Supp) 10 mg RECTAL DAILY PRN PRN Reason: SEVERE CONSITIPATION Calcitriol (Rocaltrol) 0.25 mcg PO DAILY COUNTS INCLUDE 234 BEDS AT THE [facility] Last Admin: 05/26/18 08:49 Dose: 0.25 mcg Chlorhexidine Gluconate (Chlorhexidine 2% Cloth) 3 pack TOPICAL DAILY@0400 COUNTS INCLUDE 234 BEDS AT THE [facility] Stop: 05/27/18 03:59 Last Admin: 05/26/18 05:56 Dose: 3 pack Chlorhexidine Gluconate (Chlorhexidine 2% Cloth) 3 pack TOPICAL DAILY@0400 PRN PRN Reason: Extra cloth needed Stop: 05/27/18 03:59 Clonidine HCl (Catapres) 0.1 mg PO UNSCH PRN PRN Reason: SEE LABEL COMMENTS Last Admin: 05/25/18 19:28 Dose: 0.1 mg Dextrose (D50w Vial) 50 ml IV.PUSH UNSCH PRN PRN Reason: PER HYPOGLYCEMIA PROTOCOL Diphenhydramine HCl (Benadryl) 25 mg PO UNSCH PRN PRN Reason: SEE LABEL COMMENTS Epoetin Stefano (Epogen Inj) 6,000 unit IV.PUSH UNSCH PRN PRN Reason: SEE LABEL COMMENTS Last Admin: 05/25/18 17:54 Dose: 6,000 unit Gabapentin (Neurontin) 300 mg PO BID COUNTS INCLUDE 234 BEDS AT THE [facility] Last Admin: 05/26/18 08:47 Dose: 300 mg Gelatin (Gelfoam 12 Mm/7 Mm Topical) 1 foam TOPICAL PRN PRN PRN Reason: help stop bleeding from site Gentamicin Sulfate (Gentamicin Inj) 20 mg OTHER WITH DIALYSIS PRN PRN Reason: Dwell Gentamycin Lock Glucagon (Glucagon Inj) 1 mg OTHER PRN PRN PRN Reason: for Hypoglycemia Protocol Heparin Sodium (Porcine) (Heparin Inj) 8,000 units OTHER WITH DIALYSIS PRN PRN Reason: for machine prime Heparin Sodium (Porcine) (Heparin Inj) 1,000 units OTHER WITH DIALYSIS PRN PRN Reason: Dwell Heparin to Fill Catheter Hydralazine HCl (Apresoline Inj) 20 mg IV.PUSH Q4H PRN PRN Reason: SBP> OR = 180, DBP> OR = 100 Last Admin: 05/26/18 10:48 Dose: 20 mg Piperacillin/Tazobactam/Dextrose (Zosyn 2.25 Gm Premix) 50 mls @ 100 mls/hr IV.SIG Q12H SKIP Last Admin: 05/26/18 14:21 Dose: 100 mls/hr Albumin Human (Flexbumin 25% Inj) 100 mls @ 60 mls/hr IV.SIG WITH DIALYSIS PRN PRN Reason: hypotension / volume replace Sodium Chloride (Ns Inj) 1,000 mls @ 0 mls/hr OTHER .Q0M PRN PRN Reason: for prime and rinse back Sodium Chloride (Ns Inj) 1,000 mls @ 200 mls/hr OTHER .Q5H PRN PRN Reason: for dialyzer flush PRN Sodium Chloride (Ns Inj) 1,000 mls @ 0 mls/hr IV.CONT .Q0M PRN PRN Reason: hypotension / volume replace Acetaminophen (Ofirmev Inj) 1,000 mg in 100 mls @ 300 mls/hr IV.SIG Q6H PRN PRN Reason: FEVER Last Infusion: 05/21/18 17:00 Dose: Infused Vancomycin HCl 1,000 mg/ (Sodium Chloride) 250 mls @ 250 mls/hr IV.SIG WITH DIALYSIS SKIP Last Infusion: 05/25/18 18:19 Dose: Infused Insulin Aspart (Novolog Insulin Correctional Sugar Inj) 0 unit SQ ACHS COUNTS INCLUDE 234 BEDS AT THE [facility]; Protocol Last Admin: 05/26/18 14:21 Dose: 1 unit Labetalol HCl (Trandate Inj) 10 mg IV.PUSH Q4H PRN PRN Reason: SBP>180, DBP>100, HR>65 Lactulose (Lactulose Liq) 30 ml PO DAILY PRN PRN Reason: SEVERE CONSITIPATION Mannitol (Mannitol Inj) 12.5 gm IV.PUSH UNSCH PRN PRN Reason: hypotension / volume replace Methocarbamol (Robaxin) 500 mg PO QID COUNTS INCLUDE 234 BEDS AT THE [facility] Last Admin: 05/26/18 12:50 Dose: 500 mg Metoprolol Tartrate (Lopressor) 25 mg PO BID COUNTS INCLUDE 234 BEDS AT THE [facility] Last Admin: 05/26/18 08:47 Dose: 25 mg Morphine Sulfate (Morphine Inj) 2 mg IV.PUSH Q3H PRN PRN Reason: PAIN 6-10 Last Admin: 05/26/18 14:23 Dose: 2 mg Nitroglycerin (Nitro-Bid 2% Oint) 1 inch TOPICAL Q6HR COUNTS INCLUDE 234 BEDS AT THE [facility] Last Admin: 05/26/18 12:50 Dose: 1 inch Nitroglycerin (Nitrostat Sl) 0.4 mg SL Q5M PRN PRN Reason: CHEST PAIN Ondansetron HCl (Zofran Inj) 4 mg IV.PUSH Q6H PRN PRN Reason: NAUSEA OR VOMITING Ondansetron HCl (Zofran Inj) 4 mg IV.PUSH UNSCH PRN PRN Reason: NAUSEA OR VOMITING Phenytoin Sodium (Dilantin) 200 mg PO BID COUNTS INCLUDE 234 BEDS AT THE [facility] Last Admin: 05/26/18 08:46 Dose: 200 mg Senna/Docusate Sodium (Winifred-Colace) 1 tab PO BID COUNTS INCLUDE 234 BEDS AT THE [facility] Last Admin: 05/26/18 08:48 Dose: 1 tab Sennosides (Senokot) 17.2 mg PO Q12H PRN PRN Reason: Moderate Constipation Sodium Chloride (Ns Flush) 2 ml IV.FLUSH BID COUNTS INCLUDE 234 BEDS AT [facility] Last Admin: 05/26/18 08:47 Dose: 2 ml Sodium Chloride (Ns Flush) 2 ml IV.FLUSH PRN PRN PRN Reason: FLUSH AFTER USING IV ACCESS Sodium Chloride (Ns Flush) 5 ml IV.FLUSH PRN PRN PRN Reason: flush each lumen during HD Ticagrelor (Brilinta) 90 mg PO BID COUNTS INCLUDE 234 BEDS AT THE [facility] Last Admin: 05/26/18 08:46 Dose: 90 mg Allergies Allergy/AdvReac Type Severity Reaction Status Date / Time *MDRO Multi-Drug Resistant AdvReac Intermediate Abdominal Uncoded 05/21/18 00:22 Organism Pain Home Medications Medication Instructions Recorded Confirmed Type aspirin 81 mg PO DAILY 02/20/18 05/21/18 History enalapril maleate 5 mg PO DAILY 02/20/18 05/21/18 History gabapentin 300 mg PO BID 02/20/18 05/21/18 History lisinopril 10 mg PO DAILY 02/20/18 05/21/18 History metoclopramide HCl 5 mg PO TID 02/20/18 05/21/18 History phenytoin sodium extended 200 mg PO BID 02/20/18 05/21/18 History [Phenytek] insulin detemir U-100 [Levemir 34 units SUB-Q DAILY 03/15/18 05/21/18 History U-100 Insulin] Results - Labs CBC & Chem 7: 05/26/18 08:10 11/22/18 08:10 Laboratory Results - last 24 hr 05/25/18 05/25/18 05/26/18 17:04 21:09 08:10 WBC 6.3 RBC 2.56 L Hgb 8.5 L Hct 24.9 L MCV 97.4 MCH 33.2 MCHC 34.1 RDW 15.1 Plt Count 109 L MPV 8.0 Neut % (Auto) 74.5 H Lymph % (Auto) 12.2 [place] % (Auto) 8.5 H Eos % (Auto) 4.4 H Baso % (Auto) 0.4 Neut # (Auto) 4.7 Lymph # (Auto) 0.8 L [place] # (Auto) 0.5 Eos # (Auto) 0.3 Baso # (Auto) 0.0 WBC Differential . Differential Comment Auto diff final Sodium Potassium Chloride Carbon Dioxide Anion Gap BUN Creatinine Estimated GFR POC Glucose 114 H 237 H Random Glucose Calcium Prot Corrected Calcium Phosphorus Magnesium Total Bilirubin AST ALT Alkaline Phosphatase Total Protein Albumin Blood Type Blood Type Recheck Antibody Screen 05/26/18 05/26/18 05/26/18 08:10 08:33 12:13 WBC RBC Hgb Hct MCV MCH MCHC RDW Plt Count MPV Neut % (Auto) Lymph % (Auto) [place] % (Auto) Eos % (Auto) Baso % (Auto) Neut # (Auto) Lymph # (Auto) [place] # (Auto) Eos # (Auto) Baso # (Auto) WBC Differential Differential Comment Sodium 136 Potassium 4.7 Chloride 96 L Carbon Dioxide 28.4 Anion Gap 12 BUN 47 H Creatinine 5.98 H Estimated GFR 10 L POC Glucose 152 H 195 H Random Glucose 143 H Calcium 7.4 L* Prot Corrected Calcium 7.5 L Phosphorus 4.6 D Magnesium 2.2 Total Bilirubin 0.7 AST 58 H ALT 47 Alkaline Phosphatase 149 H Total Protein 6.9 Albumin 2.5 L Blood Type Blood Type Recheck Antibody Screen 05/26/18 13:00 WBC RBC Hgb Hct MCV MCH MCHC RDW Plt Count MPV Neut % (Auto) Lymph % (Auto) [place] % (Auto) Eos % (Auto) Baso % (Auto) Neut # (Auto) Lymph # (Auto) [place] # (Auto) Eos # (Auto) Baso # (Auto) WBC Differential Differential Comment Sodium Potassium Chloride Carbon Dioxide Anion Gap BUN Creatinine Estimated GFR POC Glucose Random Glucose Calcium Prot Corrected Calcium Phosphorus Magnesium Total Bilirubin AST ALT Alkaline Phosphatase Total Protein Albumin Blood Type A Negative Blood Type Recheck Not needed Antibody Screen Negative Microbiology 05/22/18 13:28 Blood - Peripheral Aerobic Blood Culture - Preliminary No growth in 4 days 05/22/18 13:28 Blood - Peripheral Anaerobic Blood Culture - Preliminary No growth in 4 days 05/22/18 13:41 Blood - Peripheral Aerobic Blood Culture - Preliminary No growth in 4 days 05/22/18 13:41 Blood - Peripheral Anaerobic Blood Culture - Preliminary No growth in 4 days Assessment and Plan - Assessment (1) Osteomyelitis of right foot Code(s): M86.9 - Osteomyelitis, unspecified Status: Acute (2) Osteomyelitis of left foot Code(s): M86.9 - Osteomyelitis, unspecified Status: Acute - Plan LE BK per Dominick on 05/27/18 Plan for right 2nd and 3rd digit stump revision in the OR when medically stable per Team Possibly 05/28 or 05/29 and will discussed with Dr Glass.
--- NOTE | 2018-05-26 20:39 | P.PNNP ---
Subjective Interval history: Patient seen in the afternoon, alert, no SOB, eating better. Physical Exam Vital signs: Vital Signs 05/25/18 21:00 05/25/18 21:21 05/25/18 22:00 Temperature Pulse Rate 79 81 78 Respiratory Rate 15 14 17 Blood Pressure 190/79 H 193/79 H 193/78 H Pulse Oximetry 98 98 98 05/25/18 23:00 05/26/18 00:00 05/26/18 01:00 Temperature 99.0 F Pulse Rate 72 77 74 Respiratory Rate 17 17 19 Blood Pressure 162/67 H 165/67 H 167/71 H Pulse Oximetry 97 96 97 05/26/18 02:00 05/26/18 03:00 05/26/18 04:00 Temperature 98.3 F Pulse Rate 75 76 73 Respiratory Rate 14 14 12 Blood Pressure 166/70 H 165/71 H 183/77 H Pulse Oximetry 97 92 L 98 05/26/18 05:00 05/26/18 06:00 05/26/18 07:00 Temperature Pulse Rate 73 72 72 Respiratory Rate 22 12 14 Blood Pressure 173/73 H 175/72 H 180/77 H Pulse Oximetry 96 97 93 L 05/26/18 08:00 05/26/18 08:05 05/26/18 08:44 Temperature 98.7 F Pulse Rate 72 75 Respiratory Rate 12 22 Blood Pressure 186/76 H 183/74 H Pulse Oximetry 96 99 95 05/26/18 09:00 05/26/18 09:01 05/26/18 10:00 Temperature Pulse Rate 75 75 72 Respiratory Rate 28 H 17 17 Blood Pressure 190/78 H 185/78 H Pulse Oximetry 99 98 96 05/26/18 12:00 05/26/18 16:00 05/26/18 19:40 Temperature 97.8 F 97.2 F L Pulse Rate 74 67 Respiratory Rate 18 18 Blood Pressure 152/67 H 152/68 H Pulse Oximetry 97 94 L 96 Intake & Output 05/26/18 05/26/18 05/27/18 06:59 18:59 06:59 Intake Total 110 / 110 50 / 50 Output Total 40 / 40 Balance 70 / 70 50 / 50 Weight 130 kg Intake: IV 50 / 50 50 / 50 Zosyn 2.25 GM Premix 50 ML @ 50 / 50 50 / 50 100 mls/hr IV.SIG Q12H SKIP Rx#: [id number] Oral 60 / 60 Output: Urine 40 / 40 Stool 0 / 0 Urine/Stool Mix 0 / 0 Other: Date of Last Bowel Movement 05/24/18 05/24/18 # Bowel Movements 0 # Incontinent Bowel Movements 0 Narrative: GENERAL: Awake and alert. Flat affect. SKIN: Warm and dry. NECK: Supple, trachea midline. No JVD. CARDIOVASCULAR: Regular rate and rhythm without murmurs, gallops, or rubs. Left arm AVF with positive thrill and bruit. RESPIRATORY: Breath sounds equal bilaterally. No accessory muscle use. GASTROINTESTINAL: Abdomen soft, Positive bowel sounds. MUSCULOSKELETAL: No cyanosis, or edema. Bilateral lower extremity redness. Multiple toe amputations. Wound on bottom of left foot, chronic. BACK: Nontender without obvious deformity. No CVA tenderness. Assessment and Plan - Assessment (1) ESRD (end stage renal disease) on dialysis Code(s): N18.6 - End stage renal disease; Z99.2 - Dependence on renal dialysis Status: Acute Plan: Patient with end stage renal disease on HD TTS. Epogen with dialysis. Hemodialysis done yesterday, as it is holiday on . Patient will need left BKA. HD will be on Sat. (2) DM (diabetes mellitus) Code(s): E11.9 - Type 2 diabetes mellitus without complications Status: Chronic Plan: Recommend to maintain blood sugars between 140 mg/dl to 180 mg/dl while hospitalized. (3) Anemia Code(s): D64.9 - Anemia, unspecified Status: Acute Plan: Epogen ordered with dialysis. HGB stable at 8.2 (4) Sepsis Code(s): A41.9 - Sepsis, unspecified organism Status: Acute Plan: Blood cultures positive for MRSA. Has MRSA Bacteremia, most likely from feet infection. Antibiotics per ID recommendations, renal dose as appropriate
[2018-05-27] MEDS: Piperacil/Tazo 2.25 GM Premix 50 ML IV.SIG SCH ×3 (00:26→23:23)
[2018-05-27] MEDS ORDERED: Metoprolol Tartrate 25 MG Tablet PO ONE (05:42)
[2018-05-27] MEDS ORDERED: Chlorhexidine Gluconate 2% 1 Pack (2 Cloths) TOPICAL ONE (05:42)
[2018-05-27] MEDS: Morphine Sulfate Inj 2 MG/ML Vial IV.PUSH PRN ×4 (05:43→22:22)
[2018-05-27] MEDS ORDERED: Sodium Chlor 0.9% Inj 500 ML IV.SIG SCH (06:00)
[2018-05-27 07:37] LABS: Baso % (Auto) 0.4 % (0.0-2.0); Eos # (Auto) 0.3 th/mm3 (0.0-0.4); Eos % (Auto) 4.8 % (0.0-4.0); Hematocrit 25.5 % (39.0-51.0); Hemoglobin 8.9 gm/dL (13.0-17.0); Lymph # (Auto) 0.8 th/mm3 (1.0-4.8); Lymph % (Auto) 11.2 % (9.0-44.0); Mean Corpuscular Hemoglobin 33.5 pg (27.0-34.0); Mean Corpuscular Volume 95.6 fL (80.0-100.0); Mono # (Auto) 0.5 th/mm3 (0.0-0.9); Mono % (Auto) 7.6 % (0.0-8.0); Neut # (Auto) 5.2 th/mm3 (1.8-7.7); Platelet Count 125 th/mm3 (150-450); Red Blood Count 2.66 mil/mm3 (4.50-5.90); Red Cell Distribution Width 15.2 % (11.6-17.2); White Blood Count 6.9 th/mm3 (4.0-11.0)
[2018-05-27] MEDS ORDERED: Glycopyrrolate Inj 1 MG/5 ML Syringe IV.PUSH ONE (07:39)
[2018-05-27] MEDS ORDERED: Phenylephrine/NS 1000 MCG/10ML Syringe IV.PUSH ONE (07:39)
[2018-05-27] MEDS ORDERED: Lidocaine PF 1% Inj 5 ML Syringe OTHER ONE (07:39)
[2018-05-27] MEDS ORDERED: Neostigmine Inj 5 MG/5 ML Syringe IV.PUSH ONE (07:39)
[2018-05-27 07:48] LABS: Calcium 7.7 mg/dL (8.5-10.1); Carbon Dioxide 32.7 meq/L (21.0-32.0); Potassium 4.7 meq/L (3.5-5.1)
--- NOTE | 2018-05-27 10:10 | P.OP ---
Preoperative Diagnosis: Nonsalvageable left foot with osteomyelitis Postoperative Diagnosis: Nonsalvageable left foot with ostium mellitus Date of procedure: 05/27/18 Procedure: Left below-knee amputation Surgeon: Casper Collins MD Estimated blood loss (mL): 500 Tourniquet time (min): 30 Operation and Findings: Description of procedure The patient was taken to the operating room placed supine on the OR table. After general trach anesthesia the patient was prepped and draped in the standard sterile fashion. Timeout was called with all members in the OR in agreement. An incision was made just fourth finger breath below the tibial tuberosity. Dissection was taken down through the subcu tendon tissues and electrocautery. The tibia was divided. The fibula was dissected and divided. The vascular bundle was identified ligated and divided. The posterior flap was created. Amputation was completed. Hemostasis was achieved. The wound was closed approximating the fascia using 2-0 Vicryl suture in the interrupted fashion. Skin was closed using nylon suture. Sterile dressing was applied. The patient tolerated the procedure well and taken to recovery in stable condition.
[2018-05-27] MEDS ORDERED: fentaNYL Citrate Inj 100 MCG/2 ML Ampul ONE (10:24)
--- NOTE | 2018-05-27 11:14 | P.PNWCN ---
Wound Care Nurse Consult Additional information: Patient not seen today for BLE wound management. Patient is being followed by Podiatry and Vascular. Patient is in OR for L BKA. Per RN patient had wounds on LLE and RLE has missing toes, but no open wound. Please Defer to vascular or podiatry for wound care orders and any issues that arise with L stump. Wound care inpatient is signing off.
[2018-05-27] MEDS: Gabapentin 300 MG Capsule PO SCH ×2 (13:06→20:44)
[2018-05-27] MEDS: Metoprolol Tartrate 25 MG Tablet PO SCH ×2 (13:06→20:45)
[2018-05-27] MEDS: amLODIPine 5 MG Tablet PO SCH (13:06)
[2018-05-27] MEDS: Phenytoin Sodium 100 MG Capsule PO SCH ×2 (13:06→20:45)
[2018-05-27] MEDS: Insulin NovoLOG Aspart Correctional Sugar Inj SQ SCH ×4 (13:06→20:49)
[2018-05-27] MEDS: Senna/Docusate Sodium 8.6/50 MG Tablet PO SCH ×2 (13:07→20:44)
[2018-05-27] MEDS: Calcitriol 0.25 MCG Capsule PO SCH (13:07)
[2018-05-27] MEDS: Methocarbamol 500 MG Tablet PO SCH ×4 (13:07→20:45)
[2018-05-27] MEDS: Sodium Chloride 0.9% 2 ML Flush BID IV.FLUSH SCH ×2 (13:07→20:45)
[2018-05-27] MEDS ORDERED: ceFAZolin 2 GM Premix Inj 2 GM/50 ML PIGGYBACK IV.SIG ONE (13:13)
--- NOTE | 2018-05-27 13:55 | P.PNID ---
Subjective Remarks: Patient is a 63-year-old male, brought into the hospital complaining of chest pain. Patient has known coronary artery disease. He had prior stenting of his coronaries I believe back in August of this year. In February he was readmitted and had an [place], and at that time he had bradycardia and he underwent placement of a pacemaker. Patient on this admission started having fevers and he was encephalopathic. There was some notation that he had some redness on his left upper extremity where he has his AV graft. Patient stated he had the AV graft put in about 6 months ago and the dialysis unit started using it about 4 months ago. Patient was also noted to have multiple wounds in the right foot as well as in the left foot. He stated he was hospitalized at [facility] last April and had surgery on his toes. He could not really tell me which of the toes he had surgery on. I spoke with microbiology in [facility], and there was a toe culture that grew Morganella morganii acne. It was resistant to ampicillin, Unasyn, cefazolin, and intermediate to gentamicin. Patient was apparently given some oral antibiotic but he could not remember what it was. He was last seen by his family services manager about a week ago and as far as he knows there was no problem with it. Patient states that he ambulates without any problem at home. Blood cultures done on this admission is now reported as growing possible MRSA. He had imaging study of the AV graft and there is a small fluid close to the AV graft. Patient currently is awake and alert and oriented. He is not short of breath, and currently no chest pain. Patient states he has neuropathy and does not really feel any pain in both feet. Infectious disease consultation has been requested to assist with evaluation and treatment of patient with positive blood culture. Notes reviewed Had LBKA this morning Temps ok BC with MRSA Repeat BC negative so far Last HD 05/25 - got dose of vanco Next HD tomorrow 05/28, he gets TTHSA Antibiotics: Zosyn Vancomycin Past Medical History: Neuropathy (Acute) AV fistula (Chronic) Coronary artery disease Diabetes End stage renal disease History of amputation of great toe of both feet Seizure Knee joint replacement status (Acute) History of cholecystectomy Allergies/Adverse Reactions: Allergies *MDRO Multi-Drug Resistant Organism Adverse Reaction (Intermediate, Uncoded 00:22) Abdominal Pain 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 Objective Vital Signs 05/26/18 16:00 05/26/18 19:40 05/26/18 20:00 Temperature 97.2 F L 98.3 F Pulse Rate 67 75 Respiratory Rate 18 18 Blood Pressure 152/68 H 178/73 H Pulse Oximetry 94 L 96 98 05/26/18 22:58 05/27/18 00:00 05/27/18 04:00 Temperature 97.9 F 97.8 F Pulse Rate 69 69 Respiratory Rate 20 18 18 Blood Pressure 162/69 H 170/65 H Pulse Oximetry 98 98 05/27/18 10:15 05/27/18 10:30 05/27/18 10:45 Temperature 98 F Pulse Rate 65 62 61 Respiratory Rate 18 18 18 Blood Pressure 120/56 L 115/58 L 117/55 L Pulse Oximetry 96 05/27/18 11:00 05/27/18 11:25 05/27/18 12:00 Temperature 97.5 F L 97.7 F Pulse Rate 78 78 77 Respiratory Rate 18 18 18 Blood Pressure 123/59 L 127/58 L 122/58 L Pulse Oximetry 96 Intake & Output 05/26/18 05/27/18 05/27/18 18:59 06:59 18:59 Intake Total 50 / 50 960 / 960 Output Total 525 / 525 Balance 50 / 50 435 / 435 Weight 133.7 kg Intake: IV 50 / 50 100 / 100 Zosyn 2.25 GM Premix 50 ML @ 50 / 50 50 / 50 100 mls/hr IV.SIG Q12H [facility] Rx#: [id number] Ancef 2 GM Premix Inj 2 gm In 50 / 50 50 ml @ 100 mls/hr IV.SIG ONCE ONE Rx#:[id number] Oral 60 / 60 Anesthesia Amount 800 / 800 Output: Urine 25 / 25 Estimated Blood Loss 500 / 500 Other: Date of Last Bowel Movement 05/24/18 Weight On Admission 130 kg 05/22/18 13:28 Blood - Peripheral Aerobic Blood Culture - Final No growth in 5 days 05/22/18 13:28 Blood - Peripheral Anaerobic Blood Culture - Final No growth in 5 days 05/22/18 13:41 Blood - Peripheral Aerobic Blood Culture - Final No growth in 5 days 05/22/18 13:41 Blood - Peripheral Anaerobic Blood Culture - Final No growth in 5 days 05/21/18 09:56 Blood - Peripheral Aerobic Blood Culture - Final S. aureus MRSA 05/21/18 09:56 Blood - Peripheral Anaerobic Blood Culture - Final S. aureus MRSA 05/21/18 09:56 Blood - Peripheral Aerobic Blood Culture - Final S. aureus MRSA 05/21/18 09:56 Blood - Peripheral Anaerobic Blood Culture - Final S. aureus MRSA Lab - Hematology Results 05/26/18 05/27/18 08:10 07:15 WBC 6.3 6.9 RBC 2.56 L 2.66 L Hgb 8.5 L 8.9 L Hct 24.9 L 25.5 L MCV 97.4 95.6 MCH 33.2 33.5 MCHC 34.1 35.0 RDW 15.1 15.2 Plt Count 109 L 125 L MPV 8.0 8.0 Neut % (Auto) 74.5 H 76.0 H Lymph % (Auto) 12.2 11.2 [place] % (Auto) 8.5 H 7.6 Eos % (Auto) 4.4 H 4.8 H Baso % (Auto) 0.4 0.4 Neut # (Auto) 4.7 5.2 Lymph # (Auto) 0.8 L 0.8 L [place] # (Auto) 0.5 0.5 Eos # (Auto) 0.3 0.3 Baso # (Auto) 0.0 0.0 WBC Differential . . Differential Comment Auto diff final Auto diff final Lab - Chemistry Results 05/25/18 05/25/18 05/26/18 17:04 21:09 08:10 Sodium 136 Potassium 4.7 Chloride 96 L Carbon Dioxide 28.4 Anion Gap 12 BUN 47 H Creatinine 5.98 H Estimated GFR 10 L POC Glucose 114 H 237 H Random Glucose 143 H Calcium 7.4 L* Prot Corrected Calcium 7.5 L Phosphorus 4.6 D Magnesium 2.2 Total Bilirubin 0.7 AST 58 H ALT 47 Alkaline Phosphatase 149 H Total Protein 6.9 Albumin 2.5 L 05/26/18 05/26/18 05/26/18 08:33 12:13 17:14 Sodium Potassium Chloride Carbon Dioxide Anion Gap BUN Creatinine Estimated GFR POC Glucose 152 H 195 H 227 H Random Glucose Calcium Prot Corrected Calcium Phosphorus Magnesium Total Bilirubin AST ALT Alkaline Phosphatase Total Protein Albumin 05/26/18 05/27/18 05/27/18 21:40 07:15 08:12 Sodium 133 L Potassium 4.7 Chloride 94 L Carbon Dioxide 32.7 H Anion Gap 6 BUN 59 H Creatinine 6.92 H Estimated GFR 8 L POC Glucose 198 H 183 H Random Glucose 177 H Calcium 7.7 L Prot Corrected Calcium Phosphorus Magnesium Total Bilirubin AST ALT Alkaline Phosphatase Total Protein Albumin 05/27/18 05/27/18 10:18 12:59 Sodium Potassium Chloride Carbon Dioxide Anion Gap BUN Creatinine Estimated GFR POC Glucose 216 H 250 H Random Glucose Calcium Prot Corrected Calcium Phosphorus Magnesium Total Bilirubin AST ALT Alkaline Phosphatase Total Protein Albumin Imaging: ITS Impressions Chest CTA 05/21/18 00:00 CONCLUSION: 1. No evidence of pulmonary embolism. 2. Minimal scattered ground-glass densities are noted consistent with minimal pulmonary vascular congestion versus atelectatic changes. 3. Coronary artery calcifications. 4. Tiny bilateral pleural effusions. 5. Splenomegaly. 6. Pneumobilia. 7. 13 mm right thyroid lobe nodule. 8. Degenerative changes throughout the thoracic spine. Chest X-Ray 05/21/18 00:28 CONCLUSION: Small lung volumes with an elevated right hemidiaphragm. Right subclavian bipolar pacer Extremity Arterial Study 05/22/18 00:00 CONCLUSION: 1. There is significant decrease in the ankle-brachial index on the right suggesting severe peripheral vascular disease. The left ankle-brachial index could not be obtained, but the toe brachial index on the left is significantly decreased suggesting severe peripheral vascular disease on the left also. Head CT 05/22/18 00:00 CONCLUSION: 1. Negative CT Head non contrast. . Lower Extremity Ultrasound 05/22/18 00:00 CONCLUSION: 1. Saphenous vein mapping/measurements as described above. Aorta w/Runoff CTA 05/23/18 00:00 CONCLUSION: 1. Patent inflow and outflow bilaterally. 2. Heavily calcified trifurcation vessels limits their patency evaluation. On the right there is possible straight-line flow through the anterior tibial artery and peroneal artery. The posterior tibial artery is clearly occluded. On the left there is a similar appearance. 3. Atrophic kidneys. 4. Splenomegaly. Foot X-Ray 05/23/18 00:00 CONCLUSION: Chronic change. Upper Extremity Ultrasound 05/23/18 00:00 CONCLUSION: 1. Venous mapping as detailed above. Venous Doppler Study 05/23/18 00:00 CONCLUSION: No evidence of deep venous thrombosis. Physical Exam: GENERAL: awakens easily, not in respiratory distress. SKIN: Cool and dry. No generalized rash HEAD: Atraumatic. Normocephalic. No temporal wasting, or tenderness. EYES: Bruning conjunctiva. No petechia or hemorrhage. No scleral icterus. No injection or drainage. EARS, NOSE AND THROAT: Mucous membranes pink and moist. No oral lesions noted. No exudate. No oral thrush. NECK: Trachea midline. Supple and not tender, no meningeal signs CARDIOVASCULAR: Regular rate and rhythm. No murmurs, rubs or gallops heard. Pacer in R upper chest has well healed incision, not red, not swollen, not tender RESPIRATORY: Clear to auscultation. Breath sounds equal bilaterally. No rales , wheezing or rhonchi ABDOMEN: Soft, globular, non-tender, nondistended. Bowel sounds present and normoactive. No guarding. No rebound. EXTREMITIES: No clubbing, cyanosis. Skin tight in both LE. Intact dressing to LLE. He has AVG in LUE and does not look infected on exam NEUROLOGICAL: Non-focal PSYCHIATRIC: Normal affect, calm and cooperative. LINE: No evidence of infection Assessment and Plan - Plan Impression MRSA sepsis, source? - has pacer recently placed, site looks ok - has LUE AVG, looks ok; not sure significance of fluid seen on doppler, ?early infection; per report had redness on admission - has multiple wounds both feet; L heel possibly source; has severe microvascular disease L foot - ?endocarditis ESRD on HD Encephalopathy due to sepsis, better PVD, BLE Recommendation IV Vancomycin - plan total 2 weeks for his bacteremia - give IV vanco with HD, last dose Dec 1 Stop Zosyn Follow temps Follow C/S Monitor progress
--- NOTE | 2018-05-27 18:39 | P.PNIM ---
Subjective Interval history: 62yo m admitted with chest pain and fevers, MRSA bacteremia due to diabetic foot wounds for which he underwent L BKA today pt seen and examined post op, he is sedated but opens eyes and follows some commands, deneis sob, no cp, no fever noted Physical Exam Vital signs: Last Vital Signs Temp 97.9 F 05/27/18 16:00 Pulse 71 05/27/18 16:00 Resp 8 L 05/27/18 17:49 BP 124/58 L 05/27/18 16:00 Pulse Ox 97 05/27/18 16:00 Intake & Output 05/25/18 05/26/18 05/27/18 05/28/18 06:59 06:59 06:59 06:59 Intake Total 630 / 630 510 / 510 50 / 50 1730 / 1730 Output Total 3000 / 3000 4040 / 4040 525 / 525 Balance -2370 / -2370 -3530 / -3530 50 / 50 1205 / 1205 Weight 133 kg 130 kg 133.7 kg obese 63yo w m sedated pleasant nad heart s1s2 reg lungs decreased bs bl no wrr abd obese soft nondt pos bs ext Left bka, right multiple to amputations mild edema Results Labs CBC & Chem 7: 05/27/18 07:15 05/27/18 07:15 Labs: Microbiology 05/22/18 13:28 Blood - Peripheral Aerobic Blood Culture - Final No growth in 5 days 05/22/18 13:28 Blood - Peripheral Anaerobic Blood Culture - Final No growth in 5 days 05/22/18 13:41 Blood - Peripheral Aerobic Blood Culture - Final No growth in 5 days 05/22/18 13:41 Blood - Peripheral Anaerobic Blood Culture - Final No growth in 5 days Assessment and Plan (1) Chest pain: Code(s): R07.9 - Chest pain, unspecified Status: Acute (2) ESRD (end stage renal disease) on dialysis: Code(s): N18.6 - End stage renal disease; Z99.2 - Dependence on renal dialysis Status: Acute (3) DM (diabetes mellitus): Code(s): E11.9 - Type 2 diabetes mellitus without complications Status: Chronic Plan -MRSA SEPSIS - source is uncertain, multiple risk factors including recent PPM , LUE AVG, multiple diabetic foot wounds with osteomyelitis cont abx vancomycin for 2 weeks w dialysis -OSTEOMYELITIS LEFT FOOT s/p L BKA 05/27/18 -R FOOT NONHEALING TOE AMPUTATION w EXPOSED BONE - for revision of R 2nd and 3rd digit stumps in OR per podiatry when stable -ESRD on dialysis chronic w AVG cont as per nephrology -PVD s/p angiogram 05/24/18 w both R and L Posterior tibial artery occlusion and severe microvascular dz of both L and R feet, will require followup angiogram of RLE and possible limb salvage after recovery per vascular surgery., cont statin and bilinta, asa -DM II insulin dependent with diabetic peripheral neuropathy, nephropathy -HTN cont norvasc -DYSLIPIDEMIA cont statin -ATYPICAL CP w no acs, non cardiac trop elevation, cardiology following -ACUTE METABOLIC ENCEPHALOPATHY - resolving -SEIZURE DO - s table on home meds -THROMBOCYTOPENIA - chronic stable -OBESITY BMI 37 - diet activity when stable -ANEMIA w drop in HH , prob has chronic anemia due to ckd, will monitor, transfuse prn, chekc iron studies, epo per nephrology Progress Note: Quality VTE Deep Vein Thrombosis/Pulmonary Embolism Present on Admission: No _ (1) DM (diabetes mellitus) Qualifiers: Chronic kidney disease stage: Diabetes mellitus complication detail: Diabetes mellitus complication status: Diabetes mellitus nursing home insulin use : Diabetes mellitus macular edema: Diabetes mellitus type: Diabetic retinopathy severity: Laterality: Proliferative retinopathy type: (2) Chest pain Qualifiers: Chest pain type: other chest pain Ischemic chest pain type: Qualified Code( s): R07.89 - Other chest pain; R07.8 - Other chest pain
--- NOTE | 2018-05-27 19:15 | P.PNNP ---
Subjective Interval history: Patient seen in the afternoon, after the surgery, alert mild pain at surgical site, no SOB. Physical Exam Vital signs: Vital Signs 05/26/18 19:40 05/26/18 20:00 05/26/18 22:58 Temperature 98.3 F Pulse Rate 75 Respiratory Rate 18 20 Blood Pressure 178/73 H Pulse Oximetry 96 98 05/27/18 00:00 05/27/18 04:00 05/27/18 10:15 Temperature 97.9 F 97.8 F 98 F Pulse Rate 69 69 65 Respiratory Rate 18 18 18 Blood Pressure 162/69 H 170/65 H 120/56 L Pulse Oximetry 98 98 96 05/27/18 10:30 05/27/18 10:45 05/27/18 11:00 Temperature Pulse Rate 62 61 78 Respiratory Rate 18 18 18 Blood Pressure 115/58 L 117/55 L 123/59 L Pulse Oximetry 05/27/18 11:25 05/27/18 12:00 05/27/18 16:00 Temperature 97.5 F L 97.7 F 97.9 F Pulse Rate 78 77 71 Respiratory Rate 18 18 19 Blood Pressure 127/58 L 122/58 L 124/58 L Pulse Oximetry 96 97 05/27/18 17:49 Temperature Pulse Rate Respiratory Rate 8 L Blood Pressure Pulse Oximetry Intake & Output 05/27/18 05/27/18 05/28/18 06:59 18:59 06:59 Intake Total 1730 / 1730 Output Total 525 / 525 Balance 1205 / 1205 Weight 133.7 kg Intake: IV 150 / 150 Zosyn 2.25 GM Premix 50 ML @ 100 / 100 100 mls/hr IV.SIG Q12H [facility] Rx#: [id number] Ancef 2 GM Premix Inj 2 gm In 50 / 50 50 ml @ 100 mls/hr IV.SIG ONCE ONE Rx#:[id number] Oral 780 / 780 Anesthesia Amount 800 / 800 Output: Urine 25 / 25 Estimated Blood Loss 500 / 500 Other: # Voids 1 Weight On Admission 130 kg Narrative: GENERAL: Awake and alert. Flat affect. SKIN: Warm and dry. NECK: Supple, trachea midline. No JVD. CARDIOVASCULAR: Regular rate and rhythm without murmurs, gallops, or rubs. Left arm AVF with positive thrill and bruit. RESPIRATORY: Breath sounds equal bilaterally. No accessory muscle use. GASTROINTESTINAL: Abdomen soft, Positive bowel sounds. MUSCULOSKELETAL: No cyanosis, or edema. Bilateral lower extremity redness. Multiple toe amputations. Wound on bottom of left foot, chronic. BACK: Nontender without obvious deformity. No CVA tenderness. Assessment and Plan - Assessment (1) ESRD (end stage renal disease) on dialysis Code(s): N18.6 - End stage renal disease; Z99.2 - Dependence on renal dialysis Status: Acute Plan: Patient with end stage renal disease and PVD. Now has Left BKA done. BP is stable, Hgb. low, on Epogen. HD will be done in AM. (2) DM (diabetes mellitus) Code(s): E11.9 - Type 2 diabetes mellitus without complications Status: Chronic Plan: Recommend to maintain blood sugars between 140 mg/dl to 180 mg/dl while hospitalized. (3) Anemia Code(s): D64.9 - Anemia, unspecified Status: Acute Plan: Epogen ordered with dialysis. HGB stable at 8.2 (4) Sepsis Code(s): A41.9 - Sepsis, unspecified organism Status: Acute Plan: Blood cultures positive for MRSA. Has MRSA Bacteremia, most likely from feet infection. Antibiotics per ID recommendations, renal dose as appropriate
[2018-05-28] MEDS: Morphine Sulfate Inj 2 MG/ML Vial IV.PUSH PRN ×3 (07:45→14:55)
--- NOTE | 2018-05-28 10:20 | P.PNNP ---
Subjective Interval history: Patient seen at hemodialysis has AVG cellulitis lower portion has redness and swelling patient has MRSA Physical Exam Vital signs: Vital Signs 05/27/18 10:15 05/27/18 10:30 05/27/18 10:45 Temperature 98 F Pulse Rate 65 62 61 Respiratory Rate 18 18 18 Blood Pressure 120/56 L 115/58 L 117/55 L Pulse Oximetry 96 05/27/18 11:00 05/27/18 11:25 05/27/18 12:00 Temperature 97.5 F L 97.7 F Pulse Rate 78 78 77 Respiratory Rate 18 18 18 Blood Pressure 123/59 L 127/58 L 122/58 L Pulse Oximetry 96 05/27/18 16:00 05/27/18 17:49 05/27/18 20:00 Temperature 97.9 F 97.7 F Pulse Rate 71 69 Respiratory Rate 19 8 L 18 Blood Pressure 124/58 L 100/50 L Pulse Oximetry 97 100 05/27/18 21:19 05/28/18 00:00 05/28/18 04:00 Temperature 98.5 F 98.1 F Pulse Rate 66 72 Respiratory Rate 18 18 Blood Pressure 113/55 L 119/56 L Pulse Oximetry 95 99 99 05/28/18 08:00 Temperature 98.1 F Pulse Rate 72 Respiratory Rate 17 Blood Pressure 134/62 Pulse Oximetry 98 Intake & Output 05/27/18 05/28/18 05/28/18 18:59 06:59 18:59 Intake Total 1730 / 1730 50 / 50 Output Total 525 / 525 Balance 1205 / 1205 50 / 50 Weight 130.6 kg Intake: IV 150 / 150 50 / 50 Zosyn 2.25 GM Premix 50 ML @ 100 / 100 50 / 50 100 mls/hr IV.SIG Q12H [facility] Rx#: [id number] Ancef 2 GM Premix Inj 2 gm In 50 / 50 50 ml @ 100 mls/hr IV.SIG ONCE ONE Rx#:[id number] Oral 780 / 780 Anesthesia Amount 800 / 800 Output: Urine 25 / 25 Estimated Blood Loss 500 / 500 Other: # Voids 1 Narrative: GENERAL: Awake and alert. Flat affect. SKIN: Warm and dry. NECK: Supple, trachea midline. No JVD. CARDIOVASCULAR: Regular rate and rhythm without murmurs, gallops, or rubs. Left arm AVF with positive thrill and bruit. RESPIRATORY: Breath sounds equal bilaterally. No accessory muscle use. GASTROINTESTINAL: Abdomen soft, Positive bowel sounds. MUSCULOSKELETAL: Left leg BKA wound, AVG red and swollen left arm BACK: Nontender without obvious deformity. No CVA tenderness. Assessment and Plan - Assessment (1) ESRD (end stage renal disease) on dialysis Code(s): N18.6 - End stage renal disease; Z99.2 - Dependence on renal dialysis Status: Acute Plan: Patient with end stage renal disease and PVD. Now has Left BKA done. MRSA Sepsis AVG red and swollen attempted to access above it was unsuccessful dark blood need vascath insertion HD Later MRSA in graft Vascular to see for possible excision of AVG (2) DM (diabetes mellitus) Code(s): E11.9 - Type 2 diabetes mellitus without complications Status: Chronic Plan: Recommend to maintain blood sugars between 140 mg/dl to 180 mg/dl while hospitalized. (3) Anemia Code(s): D64.9 - Anemia, unspecified Status: Acute Plan: Epogen ordered with dialysis. HGB stable at 8.2 (4) Sepsis Code(s): A41.9 - Sepsis, unspecified organism Status: Acute Plan: Blood cultures positive for MRSA. Has MRSA Bacteremia, most likely from feet infection. Antibiotics per ID recommendations, renal dose as appropriate
[2018-05-28] MEDS: Insulin NovoLOG Aspart Correctional Sugar Inj SQ SCH ×4 (11:02→21:29)
[2018-05-28] MEDS: Senna/Docusate Sodium 8.6/50 MG Tablet PO SCH ×2 (11:03→21:23)
[2018-05-28] MEDS: Methocarbamol 500 MG Tablet PO SCH ×4 (11:03→21:23)
[2018-05-28] MEDS: Metoprolol Tartrate 25 MG Tablet PO SCH ×2 (11:15→21:23)
[2018-05-28] MEDS: Calcitriol 0.25 MCG Capsule PO SCH (11:15)
[2018-05-28] MEDS: Phenytoin Sodium 100 MG Capsule PO SCH ×2 (11:16→21:22)
[2018-05-28] MEDS: Gabapentin 300 MG Capsule PO SCH ×2 (11:18→21:23)
[2018-05-28] MEDS: amLODIPine 5 MG Tablet PO SCH (11:23)
[2018-05-28] MEDS: Sodium Chloride 0.9% 2 ML Flush BID IV.FLUSH SCH ×2 (11:23→21:23)
[2018-05-28] MEDS: Piperacil/Tazo 2.25 GM Premix 50 ML IV.SIG SCH (12:03)
[2018-05-28] MEDS ORDERED: *Heparin 10,000 UNITS/10 ML Vial Periprocedural ONLY ONE (12:56)
--- NOTE | 2018-05-28 14:15 | IR ---
EXAM DATE: 05/28/2018 1:59 PM EST AGE/SEX: 63 years / Male INDICATIONS: Patient with a history of end stage renal disease. CLINICAL DATA: This is the patient's initial encounter. Patient reports that signs and symptoms have been present for 2 days and indicates a pain score of 2/10. MEDICAL/SURGICAL HISTORY: Left AV fistulaCADNeuropathySeizure Cholecystectomy. Great toe amputationB ilateral knee joint replacement. COMPARISON: No prior exams available for comparison. FLUORO TIME (min): 0.5 IMAGE SERIES: 2 ACCESS SITE: Left internal jugular vein MEDICATION(S): 2500units Heparin IV DEVICE(S): 14 Romanian double lumen Vas Cath . . PROCEDURE : 1. Ultrasound guided venipuncture. 2. Fluoroscopic guidance. 3. Central line placement. The risks, benefits and alternatives to the procedure were explained and verbal and written consent w as obtained. The site was prepped in sterile fashion. Full sterile technique was used, including ca p, mask, sterile gloves and gown and a large sterile sheet. Hand hygiene and 2% chlorhexidine prep w as utilized per protocol for cutaneous antisepsis with appropriate dry time for site. Sterile gel an d sterile probe cover were utilized for ultrasound guidance. The skin and subcutaneous tissues were infiltrated with local anesthetic solution. A suitable site a katia the vein was selected with ultrasound and fluoroscopic guidance. A small incision was made. Th e vein was accessed under direct ultrasound visualization using the micropuncture technique. The jose ropuncture set was exchanged for a 0.035 wire. The tract was dilated. The catheter was advanced int o position under direct fluoroscopic visualization, and was advanced with the tip at the junction of the superior vena cava and rt atrium. The catheter was fixed in place with suture and a sterile dres sing was applied. The patient tolerated the procedure well and there were no complications. CONCLUSION: 1. 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 2. Uncomplicated line placement as above. Electronically signed by: Carlso Victoria MD 05/28/2018 2:13 PM EST
--- NOTE | 2018-05-28 14:18 | P.RAD ---
Post Procedure Progress Note - Procedure Information Procedure Date: 05/28/18 Supervising Radiologist: Carlos Victoria MD Estimated blood loss (mL): 5 Anesthesia: Local - Plan of Activity Patient to Unit: ROPU Patient Condition: Good See PACS Report for procedural detail/treatment.
--- NOTE | 2018-05-28 14:34 | P.PNVS ---
Subjective Post Op Day #: 1 Subjective/Hospital Course: Pt w/o complaints, pain controlled Objective Vital Signs / I&O: Vital Signs 05/27/18 16:00 05/27/18 17:49 05/27/18 20:00 Temperature 97.9 F 97.7 F Pulse Rate 71 69 Respiratory Rate 19 8 L 18 Blood Pressure 124/58 L 100/50 L Pulse Oximetry 97 100 05/27/18 21:19 05/28/18 00:00 05/28/18 04:00 Temperature 98.5 F 98.1 F Pulse Rate 66 72 Respiratory Rate 18 18 Blood Pressure 113/55 L 119/56 L Pulse Oximetry 95 99 99 05/28/18 08:00 05/28/18 11:17 05/28/18 12:00 Temperature 98.1 F 97.4 F L Pulse Rate 72 76 Respiratory Rate 17 18 19 Blood Pressure 134/62 126/60 Pulse Oximetry 98 97 05/28/18 12:27 Temperature Pulse Rate Respiratory Rate Blood Pressure Pulse Oximetry 95 Intake & Output 05/27/18 05/28/18 05/28/18 18:59 06:59 18:59 Intake Total 1730 / 1730 50 / 50 50 / 50 Output Total 525 / 525 Balance 1205 / 1205 50 / 50 50 / 50 Weight 130.6 kg Intake: IV 150 / 150 50 / 50 50 / 50 Zosyn 2.25 GM Premix 50 ML @ 100 / 100 50 / 50 50 / 50 100 mls/hr IV.SIG Q12H [facility] Rx#: [id number] Ancef 2 GM Premix Inj 2 gm In 50 / 50 50 ml @ 100 mls/hr IV.SIG ONCE ONE Rx#:[id number] Oral 780 / 780 Anesthesia Amount 800 / 800 Output: Urine 25 / 25 Estimated Blood Loss 500 / 500 Other: # Voids 1 Exam: Left BKA wound clean dry intact Left upper extremity with increased erythema at the graft site. No discharge Laboratory Results - last 24 hr 05/27/18 05/27/18 05/28/18 17:23 20:48 08:00 POC Glucose 186 H 177 H 195 H 05/28/18 11:32 POC Glucose 200 H Microbiology 05/22/18 13:28 Aerobic Blood Culture - Final Blood - Peripheral No growth in 5 days Anaerobic Blood Culture - Final No growth in 5 days 05/22/18 13:41 Aerobic Blood Culture - Final Blood - Peripheral No growth in 5 days Anaerobic Blood Culture - Final No growth in 5 days Assessment and Plan - Assessment (1) Fever Code(s): R50.9 - Fever, unspecified Status: Acute - Plan 63 yo male with fever and now bacteremia Status post left BKA postop day #1 Increased erythema of the left upper extremity surrounding the AV graft. I performed a bedside duplex ultrasound and there was evidence of pseudoaneurysm with surrounding fluid which is consistent with graft infection. Continue with IV antibiotics We will schedule the patient for graft explantation on Wednesday. Vas-Cath to be placed per IR. Casper Collins MD [phone] (1) Fever Qualifiers: Fever type: unspecified Qualified Code(s): R50.9 - Fever, unspecified
--- NOTE | 2018-05-28 14:54 | CT ---
EXAM DATE: 05/28/2018 2:40 PM EST AGE/SEX: 63 years / Male INDICATIONS: Right foot pain. CLINICAL DATA: This is the patient's initial encounter. Patient reports that signs and symptoms have been present for 4 - 6 days and indicates a pain score of 6/10. MEDICAL/SURGICAL HISTORY: Diabetes. Seizures. . AV fistula RADIATION DOSE: 7.29 CTDI (mGy) [place] [facility] [place]. . TECHNIQUE: Multiple contiguous axial images were acquired using a multirow detector CT scanner after the intravenous administration of 94 ml Omnipaque 350 (iohexol) nonionic water-soluble contrast as a single exam dose. Multiplanar reconstruction was performed in the sagittal and coronal planes. Us ing automated exposure control and adjustment of the mA and/or kV according to patient size, radiatio n dose was kept as low as reasonably achievable to obtain optimal diagnostic quality images. DICOM f ormat image data is available electronically for review and comparison. FINDINGS: Bones: Patient is status post transmetatarsal amputation of the fourth and fifth digits and status p ost transphalangeal amputations of the first second and third digits. There is a punctate subcutaneo us focus of air overlying the dorsal second digit amputation stump. There is very subtle potential er osive change at the amputation site in this regionh. Remaining osseous structures are intact without evidence for acute fracture or erosive change at the amputation sites. Joints: Diffuse degenerative change with subchondral cyst formation involving the cuneiforms and nolan cular. Soft Tissues: Mild diffuse soft tissue swelling overlying the forefoot amputation site. No radiopaqu e foreign bodies. Other: Diffuse vascular calcifications. CONCLUSION: 1. Status post transmetatarsal amputation of the fourth and fifth digits. 2. Status post transphalangeal amputation of the first, second and third digits. 3. Punctate subcutaneous focus of air overlying the dorsal second digit amputation stump with very s ubtle potential erosive change at the amputation site. 4. Mild diffuse soft tissue swelling overlying the forefoot amputation stump. Electronically signed by: Carlos Victoria MD 05/28/2018 2:52 PM EST
--- NOTE | 2018-05-28 17:03 | P.PNIM ---
Subjective Interval history: 62yo m admitted with chest pain and fevers, found to have MRSA bacteremia due to diabetic foot wounds for which he underwent L BKA today. He was unable to complete HD via his avf, and found to have a pseudoaneurysm cw graft infection, underwent vas cath placement for dialysis today, planned for graft explantation on wednesday pt seen and examined doing ok, states still has a lot of pain, no sob,n o cp, no nv Physical Exam Vital signs: Last Vital Signs Temp 99.2 F 05/28/18 16:30 Pulse 65 05/28/18 16:30 Resp 18 05/28/18 16:30 BP 140/61 05/28/18 16:30 Pulse Ox 96 05/28/18 16:30 Intake & Output 05/26/18 05/27/18 05/28/18 05/29/18 06:59 06:59 06:59 06:59 Intake Total 510 / 510 50 / 50 1780 / 1780 50 / 50 Output Total 4040 / 4040 525 / 525 Balance -3530 / -3530 50 / 50 1255 / 1255 50 / 50 Weight 130 kg 133.7 kg 130.6 kg wdwn 63yo m appears older than stated age, heart s1s2 regl lungs decreased bs at bases no wheeze abd obese soft nondt pos bs ext L bka, R foot toe stump wound bandaged. Results Labs CBC & Chem 7: 05/27/18 07:15 05/27/18 07:15 Imaging Imaging: Impressions Catheter Placement 05/28/18 00:00 CONCLUSION: 1. 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 2. Uncomplicated line placement as above. Foot CT 05/28/18 00:00 CONCLUSION: 1. Status post transmetatarsal amputation of the fourth and fifth digits. 2. Status post transphalangeal amputation of the first, second and third digits. 3. Punctate subcutaneous focus of air overlying the dorsal second digit amputation stump with very subtle potential erosive change at the amputation site. 4. Mild diffuse soft tissue swelling overlying the forefoot amputation stump. Assessment and Plan (1) Chest pain: Code(s): R07.9 - Chest pain, unspecified Status: Acute (2) ESRD (end stage renal disease) on dialysis: Code(s): N18.6 - End stage renal disease; Z99.2 - Dependence on renal dialysis Status: Acute (3) DM (diabetes mellitus): Code(s): E11.9 - Type 2 diabetes mellitus without complications Status: Chronic Plan -MRSA SEPSIS - source is uncertain, multiple risk factors including recent PPM , LUE AVG, multiple diabetic foot wounds with osteomyelitis cont abx vancomycin for 2 weeks w dialysis -AVF infection/ pseudoaneurysm, malfunction, for vas cath placement by IR and graft explantation on wednesday by vascular. -OSTEOMYELITIS LEFT FOOT s/p L BKA 05/27/18 - cont wound care and pt, iv abx per ID. -R FOOT NONHEALING TOE STUMP WOUND w EXPOSED BONE - for revision of R 2nd and 3rd digit stumps in OR per podiatry when stable -ESRD on dialysis chronic w AVG cont as per nephrology, infected avg management as above -PVD s/p angiogram 05/24/18 w both R and L Posterior tibial artery occlusion and severe microvascular dz of both L and R feet, will require followup angiogram of RLE and possible limb salvage after recovery per vascular surgery. , cont statin brilinta -DM II insulin dependent with diabetic peripheral neuropathy, nephropathy -HTN cont norvasc -DYSLIPIDEMIA cont statin -ATYPICAL CP w no acs, non cardiac trop elevation, cardiology following -ACUTE METABOLIC ENCEPHALOPATHY - resolving -SEIZURE DO - s table on home meds -THROMBOCYTOPENIA - improving -OBESITY BMI 37 - diet activity when stable -ANEMIA w drop in HH , prob has chronic anemia due to ckd, will monitor, transfuse prn, chekc iron studies, epo per nephrology DVT PROPHYLAXIS - scd DISPO - planning for rehab, [facility] Note: Quality VTE Deep Vein Thrombosis/Pulmonary Embolism Present on Admission: No _ (1) Chest pain Qualifiers: Chest pain type: other chest pain Ischemic chest pain type: Qualified Code( s): R07.89 - Other chest pain; R07.8 - Other chest pain (2) DM (diabetes mellitus) Qualifiers: Diabetes mellitus 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
[2018-05-29] MEDS: Piperacil/Tazo 2.25 GM Premix 50 ML IV.SIG SCH ×2 (00:29→12:39)
[2018-05-29] MEDS: Metoprolol Tartrate 25 MG Tablet PO SCH ×3 (07:11→21:29)
[2018-05-29] MEDS: Insulin NovoLOG Aspart Correctional Sugar Inj SQ SCH ×4 (07:25→21:30)
[2018-05-29] MEDS ORDERED: Phenylephrine/NS 1000 MCG/10ML Syringe IV.PUSH ONE (08:11)
[2018-05-29] MEDS ORDERED: Lidocaine PF 1% Inj 5 ML Syringe OTHER ONE (08:11)
[2018-05-29] MEDS ORDERED: Bupivacaine 0.25% Inj 50 ML MDV Vial ONE (08:25)
[2018-05-29] MEDS: amLODIPine 5 MG Tablet PO SCH (09:37)
[2018-05-29] MEDS: Phenytoin Sodium 100 MG Capsule PO SCH ×2 (09:37→21:29)
[2018-05-29] MEDS: Sodium Chloride 0.9% 2 ML Flush BID IV.FLUSH SCH ×2 (09:37→21:31)
[2018-05-29] MEDS: Gabapentin 300 MG Capsule PO SCH ×2 (09:37→21:28)
[2018-05-29] MEDS: Methocarbamol 500 MG Tablet PO SCH ×4 (09:38→21:28)
[2018-05-29] MEDS: Calcitriol 0.25 MCG Capsule PO SCH (09:38)
[2018-05-29] MEDS: Senna/Docusate Sodium 8.6/50 MG Tablet PO SCH ×2 (09:38→21:28)
[2018-05-29] MEDS ORDERED: Heparin - SQ 10,000 UNITS/ML Vial ONE (09:54)
[2018-05-29] MEDS ORDERED: SODIUM CHLOR 0.9% IV.SIG ONE (10:00)
[2018-05-29] MEDS ORDERED: DESMOPRESSIN IV.SIG ONE (10:00)
--- NOTE | 2018-05-29 10:05 | P.BOP ---
- Preoperative Diagnosis (1) Osteomyelitis of right foot (2) DM (diabetes mellitus) Date of procedure: 05/29/18 Procedure: 1) Right 2nd digit proximal phalanx amputation 2) Right 3rd digit proximal phalanx amputation 3) Right 2nd digit proximal phalanx bone biopsy 4) Right 3rd digit proximal phalanx bone biopsy Anesthesia: MAC Surgeon: Casie Rueda DPM Estimated blood loss (mL): 3 Pathology: none sent Condition: stable Disposition: other (After podiatry proceedure completed. Patient continued in the OR with Dr Collins for left arm surgery.)
[2018-05-29] MEDS ORDERED: Bisacodyl 10 MG Supp RECTAL PRN (10:06)
[2018-05-29] MEDS ORDERED: Promethazine 25 MG Supp RECTAL PRN (10:06)
[2018-05-29] MEDS ORDERED: Misc Info for Pharmacy OTHER STA (10:06)
[2018-05-29] MEDS ORDERED: fentaNYL Citrate Inj 100 MCG/2 ML Ampul ONE (10:58)
--- NOTE | 2018-05-29 12:12 | XR ---
EXAM DATE: 05/29/2018 12:07 PM EST AGE/SEX: 63 years / Male INDICATIONS: Post op. CLINICAL DATA: This is the patient's initial encounter. Patient reports that signs and symptoms have been present for 1 day and indicates a pain score of Nonresponsive. MEDICAL/SURGICAL HISTORY: . Diabetes. Seizures. AV fistula . Toe and metatarsal amputations. COMPARISON: [facility] – [place], FOOT COMPLETE RIGHT 3V, 05/23/2018. . FINDINGS: The patient is status post amputation at the mid first metatarsal region, at the proximal phalanx lev el at the second and third digits with minimal bony fragment seen at the proximal phalanges, and at t he mid metatarsal level at the fourth and fifth digits. When compared to the prior exam, the new find ing is near total removal of the remaining portions of the proximal phalanges at the second and third digits. There is hypertrophic spurring seen at the dorsal aspect of the midfoot and at the posterior calcaneus at the Achilles and plantar aponeurosis attachment sites. CONCLUSION: Status post removal of much of the remaining portions of the second and third proximal phalanges with small bony fragments still seen over these regions. Electronically signed by: Bautista Lester MD 05/29/2018 12:11 PM EST
--- NOTE | 2018-05-29 13:51 | P.OP ---
Preoperative Diagnosis: Infected left upper extremity AVG Postoperative Diagnosis: Infect left upper extremity AVG Date of procedure: 05/29/18 Procedure: Explantation of infected left upper extremity AV graft Anesthesia: GETA Surgeon: Casper Collins MD Estimated blood loss (mL): 300 Pathology: none sent (Infected left upper extremity AV graft) Operation and Findings: Findings Infected upper extremity AV graft with infected pseudoaneurysm. I excised the entire AV graft leaving a small cuff at the arterial and venous anastomosis. Cultures and tissue were obtained and sent for microbiology and pathology. Description of procedure The patient was taken to the operating room placed spine and on the OR table. After general trach anesthesia the patient was prepped and draped in the standard sterile fashion. Timeout was called with all members and they are in agreement. An incision was made directly above the AV graft. Dissection was taken down through the subcutaneous tissue electrocautery. The graft was dissected and proximal control was obtained. Similar process was followed to obtain distal control. Then the skin overlying the infected area with the pseudoaneurysm was incised. The graft was dissected circumferentially all the way to the venous and arterial anastomosis. The graft was excised cultures were sent to microbiology and pathology. The wound was irrigated using antibiotic solution. Hemostasis achieved. #19 STEVEN drain was placed into the wound and brought through the skin using a different stab wound and secured using nylon suture. The wound was closed in multiple layers and Vicryl suture followed by nylon suture. Ferriday were used to close the axillary incision. Sterile dressing was applied. The patient tolerated the procedure well and was taken to recovery unit in stable condition.
--- NOTE | 2018-05-29 15:50 | P.PNNP ---
Subjective Interval history: Patient had AV graft removal with pseudoaneurysm and appeared infected he feels okay Physical Exam Vital signs: Vital Signs 05/28/18 16:30 05/28/18 18:04 05/28/18 20:00 Temperature 99.2 F 99 F Pulse Rate 65 84 Respiratory Rate 18 18 Blood Pressure 140/61 151/57 H Pulse Oximetry 96 96 99 05/29/18 00:00 05/29/18 08:00 05/29/18 10:50 Temperature 99 F 98.7 F 98.7 F Pulse Rate 81 83 63 Respiratory Rate 18 18 17 Blood Pressure 156/67 H 130/51 L 116/58 L Pulse Oximetry 98 98 96 05/29/18 11:00 05/29/18 11:15 05/29/18 11:30 Temperature Pulse Rate 67 73 79 Respiratory Rate 22 22 22 Blood Pressure 127/60 131/63 114/54 L Pulse Oximetry 96 96 96 05/29/18 11:45 05/29/18 12:00 Temperature 98.7 F Pulse Rate 74 74 Respiratory Rate 15 18 Blood Pressure 116/58 L 117/55 L Pulse Oximetry 97 94 L Intake & Output 05/28/18 05/29/18 05/29/18 18:59 06:59 18:59 Intake Total 350 / 350 50 / 50 209.75 / 209.75 Output Total 0 / 0 3000 / 3000 165 / 165 Balance 350 / 350 -2950 / -2950 44.75 / 44.75 Weight 129.9 kg Intake: IV 50 / 50 50 / 50 59.75 / 59.75 DDAVP Inj 39 MCG In NS Inj 50 59.75 / 59.75 ML @ 119.5 mls/hr IV.SIG ONCE ONE Rx#:[id number] Zosyn 2.25 GM Premix 50 ML @ 50 / 50 50 / 50 100 mls/hr IV.SIG Q12H SKIP Rx#: [id number] Oral 300 / 300 Anesthesia Amount 150 / 150 Output: Urine 0 / 0 Hemodialysis Amount 3000 / 3000 Estimated Blood Loss 155 / 155 Wound Drainage # 1 Left Anterior Arm Bartolo Other: # Incontinent Voids 2 # Bowel Movements 0 Narrative: GENERAL: Awake and alert. Flat affect. SKIN: Warm and dry. NECK: Supple, trachea midline. No JVD. CARDIOVASCULAR: Regular rate and rhythm without murmurs, gallops, or rubs. Left arm AVF with positive thrill and bruit. RESPIRATORY: Breath sounds equal bilaterally. No accessory muscle use. GASTROINTESTINAL: Abdomen soft, Positive bowel sounds. MUSCULOSKELETAL: Left leg BKA wound, AVG removed status post surgical excision BACK: Nontender without obvious deformity. No CVA tenderness. Assessment and Plan - Assessment (1) ESRD (end stage renal disease) on dialysis Code(s): N18.6 - End stage renal disease; Z99.2 - Dependence on renal dialysis Status: Acute Plan: Patient with end stage renal disease and PVD. Now has Left BKA done. MRSA Sepsis AVG red and swollen attempted to access above it was unsuccessful dark blood vascath inserted hemodialysis was done yesterday 3 L removed MRSA in graft Vascular following had an excision of AVG Follow cultures Dr. Alvarado to follow (2) DM (diabetes mellitus) Code(s): E11.9 - Type 2 diabetes mellitus without complications Status: Chronic Plan: Recommend to maintain blood sugars between 140 mg/dl to 180 mg/dl while hospitalized. (3) Anemia Code(s): D64.9 - Anemia, unspecified Status: Acute Plan: Epogen ordered with dialysis. HGB stable at 8.2 (4) Sepsis Code(s): A41.9 - Sepsis, unspecified organism Status: Acute Plan: Blood cultures positive for MRSA. Has MRSA Bacteremia, most likely from feet infection. Antibiotics per ID recommendations, renal dose as appropriate
--- NOTE | 2018-05-29 15:52 | P.PNIM ---
Subjective Interval history: 62yo m admitted with chest pain and fevers, found to have MRSA bacteremia thought possibly due to diabetic foot wounds for which he underwent L BKA. He was unable to complete HD via his avf, and found to have a pseudoaneurysm cw graft infection, underwent vas cath placement for dialysis today, seen s/p AVG explantation and R toe stump revision. pt seen and examined doing ok, doing ok denies sob, no cp, no nv, pain fair control Physical Exam Vital signs: Last Vital Signs Temp 98.7 F 05/29/18 12:00 Pulse 74 05/29/18 12:00 Resp 18 05/29/18 12:00 BP 117/55 L 05/29/18 12:00 Pulse Ox 94 L 05/29/18 12:00 Intake & Output 05/27/18 05/28/18 05/29/18 05/30/18 06:59 06:59 06:59 06:59 Intake Total 50 / 50 1780 / 1780 400 / 400 209.75 / 209.75 Output Total 525 / 525 3000 / 3000 165 / 165 Balance 50 / 50 1255 / 1255 -2600 / -2600 44.75 / 44.75 Weight 133.7 kg 130.6 kg 129.9 kg wdwn 63yo w m aaox3 nad pleasant heart s1s2 reg lungs no wrr, vas cath left sup clav abd soft nondt pos bs ext left ue bandaged, right hand edema, LLE bka bandaged, R LE foot bandaged, no edema Results Labs CBC & Chem 7: 05/27/18 07:15 05/27/18 07:15 Imaging Imaging: Impressions Foot X-Ray 05/29/18 00:00 CONCLUSION: Status post removal of much of the remaining portions of the second and third proximal phalanges with small bony fragments still seen over these regions. Assessment and Plan (1) Chest pain: Code(s): R07.9 - Chest pain, unspecified Status: Acute (2) ESRD (end stage renal disease) on dialysis: Code(s): N18.6 - End stage renal disease; Z99.2 - Dependence on renal dialysis Status: Acute (3) DM (diabetes mellitus): Code(s): E11.9 - Type 2 diabetes mellitus without complications Status: Chronic Plan -MRSA SEPSIS - source is possible LUE AVG infection and or multiple diabetic foot wounds with osteomyelitis cont abx vancomycin for 2 weeks w dialysis, s/p avg explantation and amputations, cont abx per ID rec, await cxs. -AVF infection/ pseudoaneurysm, malfunction, s/p vas cath placement by IR and graft explantation by vascular today. -OSTEOMYELITIS LEFT FOOT s/p L BKA 05/27/18 - cont wound care and pt, iv abx per ID. 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 , cont statin brilinta -DM II insulin dependent with diabetic peripheral neuropathy, nephropathy -HTN cont norvasc -DYSLIPIDEMIA cont statin -ATYPICAL CP w no acs, non cardiac trop elevation, cardiology following -ACUTE METABOLIC ENCEPHALOPATHY - resolving -SEIZURE DO - s table on home meds -THROMBOCYTOPENIA - improving -OBESITY BMI 37 - diet activity when stable -ANEMIA w drop in HH , prob has chronic anemia due to ckd, will monitor, transfuse prn, chekc iron studies, epo per nephrology DVT PROPHYLAXIS - scd DISPO - planning for rehab, [facility] would like [facility] Note: Quality VTE Deep Vein Thrombosis/Pulmonary Embolism Present on Admission: No _ (1) Chest pain Qualifiers: Chest pain type: other chest pain Ischemic chest pain type: Qualified Code( s): R07.89 - Other chest pain; R07.8 - Other chest pain (2) DM (diabetes mellitus) Qualifiers: 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
[2018-05-29] MEDS: Morphine Sulfate Inj 2 MG/ML Vial IV.PUSH PRN ×2 (16:04→21:40)
[2018-05-29 18:10] LABS: Baso % (Auto) 0.3 % (0.0-2.0); Eos # (Auto) 0.1 th/mm3 (0.0-0.4); Eos % (Auto) 1.2 % (0.0-4.0); Hemoglobin 7.3 gm/dL (13.0-17.0); Lymph # (Auto) 0.8 th/mm3 (1.0-4.8); Lymph % (Auto) 7.1 % (9.0-44.0); Mean Corpuscular Hemoglobin 35.1 pg (27.0-34.0); Mean Corpuscular Volume 96.8 fL (80.0-100.0); Mean Platelet Volume 7.5 fL (7.0-11.0); Mono # (Auto) 1.2 th/mm3 (0.0-0.9); Mono % (Auto) 10.8 % (0.0-8.0); Neut # (Auto) 8.7 th/mm3 (1.8-7.7); Neut % (Auto) 80.6 % (16.0-70.0); Platelet Count 175 th/mm3 (150-450); Red Blood Count 2.08 mil/mm3 (4.50-5.90); Red Cell Distribution Width 15.3 % (11.6-17.2); White Blood Count 10.8 th/mm3 (4.0-11.0)
[2018-05-29 18:16] LABS: Mean Corpuscular HGB Conc 36.3 % (32.0-36.0)
[2018-05-29 18:18] LABS: Hematocrit 20.1 % (39.0-51.0)
--- NOTE | 2018-05-29 18:53 | P.PN ---
Subjective Interval history: NOT seen Physical Exam Vital signs: Vital Signs 05/28/18 20:00 05/29/18 00:00 05/29/18 08:00 Temperature 99 F 99 F 98.7 F Pulse Rate 84 81 83 Respiratory Rate 18 18 18 Blood Pressure 151/57 H 156/67 H 130/51 L Pulse Oximetry 99 98 98 05/29/18 10:50 05/29/18 11:00 05/29/18 11:15 Temperature 98.7 F Pulse Rate 63 67 73 Respiratory Rate 17 22 22 Blood Pressure 116/58 L 127/60 131/63 Pulse Oximetry 96 96 96 05/29/18 11:30 05/29/18 11:45 05/29/18 12:00 Temperature 98.7 F Pulse Rate 79 74 74 Respiratory Rate 22 15 18 Blood Pressure 114/54 L 116/58 L 117/55 L Pulse Oximetry 96 97 94 L 05/29/18 16:00 05/29/18 16:06 05/29/18 17:46 Temperature 97.5 F L Pulse Rate 68 Respiratory Rate 18 18 Blood Pressure 111/54 L Pulse Oximetry 100 100 Intake & Output 05/28/18 05/29/18 05/29/18 18:59 06:59 18:59 Intake Total 350 / 350 50 / 50 1059.75 / 1059.75 Output Total 0 / 0 3000 / 3000 165 / 165 Balance 350 / 350 -2950 / -2950 894.75 / 894.75 Weight 129.9 kg Intake: IV 50 / 50 50 / 50 109.75 / 109.75 DDAVP Inj 39 MCG In NS Inj 50 59.75 / 59.75 ML @ 119.5 mls/hr IV.SIG ONCE ONE Rx#:[id number] Zosyn 2.25 GM Premix 50 ML @ 50 / 50 50 / 50 50 / 50 100 mls/hr IV.SIG Q12H [facility] Rx#: [id number] Oral 300 / 300 800 / 800 Anesthesia Amount 150 / 150 Output: Urine 0 / 0 Hemodialysis Amount 3000 / 3000 Estimated Blood Loss 155 / 155 Wound Drainage # 1 Left Anterior Arm Bartolo Other: # Incontinent Voids 2 # Bowel Movements 0 Narrative: wdwn 63yo w m aaox3 nad pleasant heart s1s2 reg lungs no wrr, vas cath left sup clav abd soft nondt pos bs ext left ue bandaged, right hand edema, LLE bka bandaged, R LE foot bandaged, no edema Results - Labs CBC & Chem 7: 05/29/18 17:48 05/27/18 07:15 Laboratory Results - last 24 hr 05/27/18 05/28/18 05/29/18 06:52 21:28 07:10 WBC RBC Hgb Hct MCV MCH MCHC RDW Plt Count MPV Prelim Diff (Auto) Neut % (Auto) Lymph % (Auto) [place] % (Auto) Eos % (Auto) Baso % (Auto) Neut # (Auto) Lymph # (Auto) [place] # (Auto) Eos # (Auto) Baso # (Auto) Differential Comment POC Glucose 194 H 158 H MTS Gel Crossmatch See Detail 05/29/18 05/29/18 05/29/18 10:57 12:29 16:30 WBC RBC Hgb Hct MCV MCH MCHC RDW Plt Count MPV Prelim Diff (Auto) Neut % (Auto) Lymph % (Auto) [place] % (Auto) Eos % (Auto) Baso % (Auto) Neut # (Auto) Lymph # (Auto) [place] # (Auto) Eos # (Auto) Baso # (Auto) Differential Comment POC Glucose 223 H 251 H 219 H MTS Gel Crossmatch 05/29/18 17:48 WBC 10.8 RBC 2.08 L Hgb 7.3 L Hct 20.1 L* MCV 96.8 MCH 35.1 H MCHC 36.3 H RDW 15.3 Plt Count 175 D MPV 7.5 Prelim Diff (Auto) Slide review pending Neut % (Auto) 80.6 H Lymph % (Auto) 7.1 L [place] % (Auto) 10.8 H Eos % (Auto) 1.2 Baso % (Auto) 0.3 Neut # (Auto) 8.7 H Lymph # (Auto) 0.8 L [place] # (Auto) 1.2 H Eos # (Auto) 0.1 Baso # (Auto) 0.0 Differential Comment . POC Glucose MTS Gel Crossmatch - Imaging ITS Impressions Chest CTA 05/21/18 00:00 CONCLUSION: 1. No evidence of pulmonary embolism. 2. Minimal scattered ground-glass densities are noted consistent with minimal pulmonary vascular congestion versus atelectatic changes. 3. Coronary artery calcifications. 4. Tiny bilateral pleural effusions. 5. Splenomegaly. 6. Pneumobilia. 7. 13 mm right thyroid lobe nodule. 8. Degenerative changes throughout the thoracic spine. Chest X-Ray 05/21/18 00:28 CONCLUSION: Small lung volumes with an elevated right hemidiaphragm. Right subclavian bipolar pacer Extremity Arterial Study 05/22/18 00:00 CONCLUSION: 1. There is significant decrease in the ankle-brachial index on the right suggesting severe peripheral vascular disease. The left ankle-brachial index could not be obtained, but the toe brachial index on the left is significantly decreased suggesting severe peripheral vascular disease on the left also. Head CT 05/22/18 00:00 CONCLUSION: 1. Negative CT Head non contrast. . Lower Extremity Ultrasound 05/22/18 00:00 CONCLUSION: 1. Saphenous vein mapping/measurements as described above. Aorta w/Runoff CTA 05/23/18 00:00 CONCLUSION: 1. Patent inflow and outflow bilaterally. 2. Heavily calcified trifurcation vessels limits their patency evaluation. On the right there is possible straight-line flow through the anterior tibial artery and peroneal artery. The posterior tibial artery is clearly occluded. On the left there is a similar appearance. 3. Atrophic kidneys. 4. Splenomegaly. Upper Extremity Ultrasound 05/23/18 00:00 CONCLUSION: 1. Venous mapping as detailed above. Venous Doppler Study 05/23/18 00:00 CONCLUSION: No evidence of deep venous thrombosis. Catheter Placement 05/28/18 00:00 CONCLUSION: 1. 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 2. Uncomplicated line placement as above. Foot CT 05/28/18 00:00 CONCLUSION: 1. Status post transmetatarsal amputation of the fourth and fifth digits. 2. Status post transphalangeal amputation of the first, second and third digits. 3. Punctate subcutaneous focus of air overlying the dorsal second digit amputation stump with very subtle potential erosive change at the amputation site. 4. Mild diffuse soft tissue swelling overlying the forefoot amputation stump. Foot X-Ray 05/29/18 00:00 CONCLUSION: Status post removal of much of the remaining portions of the second and third proximal phalanges with small bony fragments still seen over these regions. - Procedures Left BKA Vascath AVG explantation s/p revision 05/29/18 of R 2nd and 3rd digit stumps Angiogram Assessment and Plan - Assessment (1) Chest pain Code(s): R07.9 - Chest pain, unspecified Status: Acute (2) ESRD (end stage renal disease) on dialysis Code(s): N18.6 - End stage renal disease; Z99.2 - Dependence on renal dialysis Status: Acute (3) DM (diabetes mellitus) Code(s): E11.9 - Type 2 diabetes mellitus without complications Status: Chronic - Plan -MRSA SEPSIS - source is possible LUE AVG infection and or multiple diabetic foot wounds with osteomyelitis cont abx vancomycin for 2 weeks w dialysis til 06/04, s/p avg explantation and amputations, cont abx per ID rec, await cxs. -AVF infection/ pseudoaneurysm, malfunction, s/p vas cath placement by IR and graft explantation by vascular -OSTEOMYELITIS LEFT FOOT s/p L BKA 05/27/18 - cont wound care and pt, iv abx per ID. -R FOOT NONHEALING TOE STUMP WOUNDs w EXPOSED BONE - s/p revision 05/29/18 of R 2nd and 3rd digit stumps in OR per podiatry -ESRD on dialysis chronic cont as per nephrology, infected avg management as above -PVD s/p angiogram 05/24/18 w both R and L Posterior tibial artery occlusion and severe microvascular dz of both L and R feet, will require followup angiogram of RLE and possible limb salvage after recovery per vascular surgery, cont statin brilinta -DM II insulin dependent with diabetic peripheral neuropathy, nephropathy -HTN cont norvasc -DYSLIPIDEMIA cont statin -ATYPICAL CP w no acs, non cardiac trop elevation, cardiology following -ACUTE METABOLIC ENCEPHALOPATHY - resolving -SEIZURE DO - stable on home meds -THROMBOCYTOPENIA - improving -OBESITY BMI 37 - diet activity when stable -ANEMIA w drop in HH , prob has chronic anemia due to ckd, will monitor, transfuse prn, iron studies, epo per nephrology DVT PROPHYLAXIS - scd DISPO - planning for rehab, he would like [facility] (1) Chest pain Qualifiers: Chest pain type: other chest pain Qualified Code(s): R07.89 - Other chest pain; R07.8 - Other chest pain
[2018-05-30] MEDS: Morphine Sulfate Inj 2 MG/ML Vial IV.PUSH PRN ×4 (00:42→12:13)
[2018-05-30] MEDS: Sodium Chloride 0.9% 2 ML Flush PRN IV.FLUSH ×2 (00:43→03:43)
--- NOTE | 2018-05-30 01:50 | MP ---
cc: Casie Rueda [facility] DATE OF OPERATION: 05/29/2018 PREOPERATIVE DIAGNOSIS: Right second and third digit osteomyelitis. POSTOPERATIVE DIAGNOSIS: Right second and third digit osteomyelitis. PROCEDURE PERFORMED: 1. Right second digit proximal phalanx resection. 2. Right second digit bone biopsy. 3. Right third digit proximal phalanx resection. 4. Right third digit bone biopsy ANESTHESIOLOGIST: ANESTHESIA: General. HEMOSTASIS: Right ankle tourniquet applied, but never inflated. ESTIMATED BLOOD LOSS: 3 mL. MATERIALS: 2-0 Vicryl, 3-0 nylon. INJECTABLES: Postoperatively 20 mL of 0.25% Marcaine plain. BRIEF HISTORY: The patient is a 63-year-old male who presented to the hospital with multiple comorbidities. He was seen by vascular for the left foot, which incorporated osteomyelitis, underwent a left BKA. With regards to the right foot, he had exposed right second and third digit proximal phalanx with drainage. Risks, benefits, pros and cons were discussed. The patient freely consented to surgical intervention. No guarantees were given nor implied. PROCEDURE IN DETAIL: The patient was brought to the operating room and place on the operating room table in the supine position. Today's procedure was carried out in conjunction with Dr. Casper Collins, who carried out the left arm procedure during the right foot surgical intervention. Consent was read and verbalized and identified the correct site for both procedures and both surgeons. Right ankle and foot was prepped and draped in the usual sterile aseptic manner. Attention was directed to the right second ray, where a dorsal incision was carried out through skin and soft tissue down to the level of the periosteum and bone. A rongeur was used to take a bone biopsy, passed off the field. Rongeur was also used to take a bone culture, which was passed off the field. The distal phalanx was resected and disarticulated at the MP joint and passed off the field. The incision was copiously irrigated with normal sterile saline impregnated with . Primary closed with 2-0 Vicryl and 3-0 nylon. The exact procedure was repeated on the right third digit. The patient tolerated the procedure to completion. There is a lateral wound which is open, which was debrided and primarily closed in conjunction with the procedure today. Dry sterile dressings were applied using Xeroform, 4 x 4, Kiran, ABD and a light Gamal wrap. The patient tolerated the right foot procedure to completion. He continued in the OR under Dr. Collins's procedure. The patient will be followed appropriately while in-house. Casie Rueda DPM SR/delmis/yahaira , 10:53 PM , 11:02 PM
[2018-05-30 07:23] LABS: Baso % (Auto) 0.3 % (0.0-2.0); Eos # (Auto) 0.2 th/mm3 (0.0-0.4); Eos % (Auto) 2.7 % (0.0-4.0); Lymph # (Auto) 0.7 th/mm3 (1.0-4.8); Lymph % (Auto) 9.6 % (9.0-44.0); Mean Corpuscular HGB Conc 34.4 % (32.0-36.0); Mean Corpuscular Hemoglobin 33.2 pg (27.0-34.0); Mean Corpuscular Volume 96.5 fL (80.0-100.0); Mean Platelet Volume 7.4 fL (7.0-11.0); Mono # (Auto) 0.8 th/mm3 (0.0-0.9); Mono % (Auto) 11.6 % (0.0-8.0); Neut # (Auto) 5.5 th/mm3 (1.8-7.7); Neut % (Auto) 75.8 % (16.0-70.0); Platelet Count 151 th/mm3 (150-450); Red Cell Distribution Width 15.4 % (11.6-17.2); White Blood Count 7.2 th/mm3 (4.0-11.0)
[2018-05-30 07:46] LABS: Hematocrit 17.3 % (39.0-51.0)
[2018-05-30 07:51] LABS: Albumin 2.3 g/dL (3.4-5.0); Calcium 7.2 mg/dL (8.5-10.1); Magnesium 2.4 mg/dL (1.5-2.5); Potassium 5.2 meq/L (3.5-5.1); Total Protein 6.4 g/dL (6.4-8.2)
[2018-05-30] MEDS: Sodium Chloride 0.9% 2 ML Flush BID IV.FLUSH SCH ×2 (08:19→20:25)
[2018-05-30] MEDS: Phenytoin Sodium 100 MG Capsule PO SCH ×2 (08:24→22:47)
[2018-05-30] MEDS: Calcitriol 0.25 MCG Capsule PO SCH (08:24)
[2018-05-30] MEDS: Gabapentin 300 MG Capsule PO SCH ×2 (08:24→22:46)
[2018-05-30] MEDS: Methocarbamol 500 MG Tablet PO SCH ×4 (08:24→22:49)
[2018-05-30] MEDS: Metoprolol Tartrate 25 MG Tablet PO SCH ×2 (08:26→22:48)
[2018-05-30] MEDS: amLODIPine 5 MG Tablet PO SCH (08:26)
[2018-05-30] MEDS: Senna/Docusate Sodium 8.6/50 MG Tablet PO SCH ×2 (08:26→22:48)
[2018-05-30] MEDS: Insulin NovoLOG Aspart Correctional Sugar Inj SQ SCH ×4 (08:27→22:46)
[2018-05-30 09:11] LABS: % Iron Saturation 13.4 % (20-50)
--- NOTE | 2018-05-30 12:27 | P.PNID ---
Subjective Remarks: Patient is a 63-year-old male, brought into the hospital complaining of chest pain. Patient has known coronary artery disease. He had prior stenting of his coronaries I believe back in August of this year. In February he was readmitted and had an NV, and at that time he had bradycardia and he underwent placement of a pacemaker. Patient on this admission started having fevers and he was encephalopathic. There was some notation that he had some redness on his left upper extremity where he has his AV graft. Patient stated he had the AV graft put in about 6 months ago and the dialysis unit started using it about 4 months ago. Patient was also noted to have multiple wounds in the right foot as well as in the left foot. He stated he was hospitalized at [facility] last April and had surgery on his toes. He could not really tell me which of the toes he had surgery on. I spoke with microbiology in [facility], and there was a toe culture that grew Morganella morganii acne. It was resistant to ampicillin, Unasyn, cefazolin, and intermediate to gentamicin. Patient was apparently given some oral antibiotic but he could not remember what it was. He was last seen by his cath lab about a week ago and as far as he knows there was no problem with it. Patient states that he ambulates without any problem at home. Blood cultures done on this admission is now reported as growing possible MRSA. He had imaging study of the AV graft and there is a small fluid close to the AV graft. Patient currently is awake and alert and oriented. He is not short of breath, and currently no chest pain. Patient states he has neuropathy and does not really feel any pain in both feet. Infectious disease consultation has been requested to assist with evaluation and treatment of patient with positive blood culture. Notes reviewed [facility] ok S/P [facility]KA Had surgery on his R foot Had surgery on his AVG C/S from R foot and path all pending C/S from AVG pending BC with MRSA Repeat BC negative so far Last HD 05/28 - got dose of vanco 05/29 Antibiotics: Vancomycin Past Medical History: Neuropathy (Acute) AV fistula (Chronic) Coronary artery disease Diabetes End stage renal disease History of amputation of great toe of both feet Seizure Knee joint replacement status (Acute) History of cholecystectomy Allergies/Adverse Reactions: Allergies *MDRO Multi-Drug Resistant Organism Adverse Reaction (Intermediate, Uncoded 00:22) Abdominal Pain 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 Objective Vital Signs 05/29/18 16:00 05/29/18 16:06 05/29/18 17:46 Temperature 97.5 F L Pulse Rate 68 Respiratory Rate 18 18 Blood Pressure 111/54 L Pulse Oximetry 100 100 05/29/18 20:00 05/30/18 00:00 05/30/18 04:00 Temperature 98.4 F 98.6 F 99.3 F Pulse Rate 72 78 80 Respiratory Rate 18 18 18 Blood Pressure 155/68 H 101/61 146/66 H Pulse Oximetry 100 100 97 05/30/18 08:00 05/30/18 11:07 Temperature 100.2 F H Pulse Rate 81 Respiratory Rate 18 Blood Pressure 152/60 H Pulse Oximetry 98 98 Intake & Output 05/29/18 05/30/18 05/30/18 18:59 06:59 18:59 Intake Total 1059.75 / 1059.75 320 / 320 Output Total 165 / 165 Balance 894.75 / 894.75 295 / 295 Weight 131.3 kg Intake: IV 109.75 / 109.75 DDAVP Inj 39 MCG In NS Inj 50 59.75 / 59.75 ML @ 119.5 mls/hr IV.SIG ONCE ONE Rx#:[id number] Zosyn 2.25 GM Premix 50 ML @ 50 / 50 100 mls/hr IV.SIG Q12H [facility] Rx#: [id number] Oral 800 / 800 320 / 320 Anesthesia Amount 150 / 150 Output: Estimated Blood Loss 155 / 155 Wound Drainage # 1 Left Anterior Arm Bartolo Other: # Incontinent Voids 2 05/29/18 09:12 Wound - Toe Acid Fast Bacilli Smear - Pending 05/29/18 09:12 Wound - Toe Mycobacterial Culture - Pending 05/29/18 09:12 Wound - Toe Fungal Smear - Pending 05/29/18 09:12 Wound - Toe Fungal Culture - Pending 05/29/18 09:12 Wound - Toe Gram Stain - Pending 05/29/18 09:12 Wound - Toe Wound Culture - Pending 05/29/18 09:03 Tissue - Toe Acid Fast Bacilli Smear - Pending 05/29/18 09:03 Tissue - Toe Mycobacterial Culture - Pending 05/29/18 09:03 Wound - Toe Fungal Smear - Pending 05/29/18 09:03 Wound - Toe Fungal Culture - Pending 05/29/18 09:03 Tissue - Toe Gram Stain - Pending 05/29/18 09:03 Tissue - Toe Wound Culture - Pending 05/29/18 08:59 Wound - Foot Gram Stain - Pending 05/29/18 08:59 Wound - Foot Wound Culture - Pending 05/29/18 08:59 Wound - Foot Fungal Smear - Pending 05/29/18 08:59 Wound - Foot Fungal Culture - Pending 05/29/18 08:59 Wound - Foot Acid Fast Bacilli Smear - Pending 05/29/18 08:59 Wound - Foot Mycobacterial Culture - Pending 05/29/18 09:21 Tissue - Toe Fungal Smear - Pending 05/29/18 09:21 Tissue - Toe Fungal Culture - Pending 05/29/18 09:21 Tissue - Toe Acid Fast Bacilli Smear - Pending 05/29/18 09:21 Tissue - Toe Mycobacterial Culture - Pending 05/29/18 09:21 Tissue - Toe Gram Stain - Pending 05/29/18 09:21 Tissue - Toe Wound Culture - Pending 05/29/18 09:30 Other Fungal Smear - Pending 05/29/18 09:30 Other Fungal Culture - Pending 05/29/18 09:30 Other Acid Fast Bacilli Smear - Pending 05/29/18 09:30 Other Mycobacterial Culture - Pending 05/29/18 09:30 Wound - Toe Gram Stain - Pending 05/29/18 09:30 Wound - Toe Wound Culture - Pending 05/29/18 10:30 Wound - Arm Gram Stain - Pending 05/29/18 10:30 Wound - Arm Wound Culture - Pending 05/29/18 10:30 Wound - Arm Fungal Smear - Pending 05/29/18 10:30 Wound - Arm Fungal Culture - Pending 05/29/18 10:30 Wound - Arm Acid Fast Bacilli Smear - Pending 05/29/18 10:30 Wound - Arm Mycobacterial Culture - Pending 05/29/18 10:30 Wound - Arm Acid Fast Bacilli Smear - Pending 05/29/18 10:30 Wound - Arm Mycobacterial Culture - Pending 05/29/18 10:30 Wound - Arm Fungal Smear - Pending 05/29/18 10:30 Wound - Arm Fungal Culture - Pending 05/29/18 10:30 Wound - Arm Gram Stain - Pending 05/29/18 10:30 Wound - Arm Wound Culture - Pending 05/22/18 13:28 Blood - Peripheral Aerobic Blood Culture - Final No growth in 5 days 05/22/18 13:28 Blood - Peripheral Anaerobic Blood Culture - Final No growth in 5 days 05/22/18 13:41 Blood - Peripheral Aerobic Blood Culture - Final No growth in 5 days 05/22/18 13:41 Blood - Peripheral Anaerobic Blood Culture - Final No growth in 5 days Lab - Hematology Results 05/29/18 05/30/18 17:48 07:09 WBC 10.8 7.2 RBC 2.08 L 1.80 L Hgb 7.3 L 6.0 L* Hct 20.1 L* 17.3 L* MCV 96.8 96.5 MCH 35.1 H 33.2 MCHC 36.3 H 34.4 RDW 15.3 15.4 Plt Count 175 D 151 MPV 7.5 7.4 Prelim Diff (Auto) Slide review pending Peanut Butter Maker Neut % (Auto) 80.6 H 75.8 H Lymph % (Auto) 7.1 L 9.6 [place] % (Auto) 10.8 H 11.6 H Eos % (Auto) 1.2 2.7 Baso % (Auto) 0.3 0.3 Neut # (Auto) 8.7 H 5.5 Lymph # (Auto) 0.8 L 0.7 L [place] # (Auto) 1.2 H 0.8 Eos # (Auto) 0.1 0.2 Baso # (Auto) 0.0 0.0 WBC Differential . . Diff Scan Auto diff confirmed Differential Comment . Auto diff final Lab - Chemistry Results 05/28/18 05/28/18 05/29/18 16:39 21:28 07:10 Sodium Potassium Chloride Carbon Dioxide Anion Gap BUN Creatinine Estimated GFR POC Glucose 192 H 194 H 158 H Random Glucose Calcium Prot Corrected Calcium Magnesium Iron TIBC % Saturation Ferritin Total Bilirubin AST ALT Alkaline Phosphatase Total Protein Albumin 05/29/18 05/29/18 05/29/18 10:57 12:29 16:30 Sodium Potassium Chloride Carbon Dioxide Anion Gap BUN Creatinine Estimated GFR POC Glucose 223 H 251 H 219 H Random Glucose Calcium Prot Corrected Calcium Magnesium Iron TIBC % Saturation Ferritin Total Bilirubin AST ALT Alkaline Phosphatase Total Protein Albumin 05/29/18 05/29/18 05/30/18 20:13 23:42 07:09 Sodium 133 L Potassium 5.2 H Chloride 96 L Carbon Dioxide 28.0 Anion Gap 9 BUN 61 H Creatinine 7.72 H Estimated GFR 7 L POC Glucose 266 H 245 H Random Glucose 185 H Calcium 7.2 L* Prot Corrected Calcium 7.6 L Magnesium 2.4 Iron TIBC % Saturation Ferritin Total Bilirubin 0.6 AST 76 H ALT 14 Alkaline Phosphatase 123 H Total Protein 6.4 Albumin 2.3 L 05/30/18 05/30/18 07:09 08:22 Sodium Potassium Chloride Carbon Dioxide Anion Gap BUN Creatinine Estimated GFR POC Glucose 227 H Random Glucose Calcium Prot Corrected Calcium Magnesium Iron 23 L TIBC 172 L % Saturation 13.4 L Ferritin 387 Total Bilirubin AST ALT Alkaline Phosphatase Total Protein Albumin Imaging: ITS Impressions Chest CTA 05/21/18 00:00 CONCLUSION: 1. No evidence of pulmonary embolism. 2. Minimal scattered ground-glass densities are noted consistent with minimal pulmonary vascular congestion versus atelectatic changes. 3. Coronary artery calcifications. 4. Tiny bilateral pleural effusions. 5. Splenomegaly. 6. Pneumobilia. 7. 13 mm right thyroid lobe nodule. 8. Degenerative changes throughout the thoracic spine. Chest X-Ray 05/21/18 00:28 CONCLUSION: Small lung volumes with an elevated right hemidiaphragm. Right subclavian bipolar pacer Extremity Arterial Study 05/22/18 00:00 CONCLUSION: 1. There is significant decrease in the ankle-brachial index on the right suggesting severe peripheral vascular disease. The left ankle-brachial index could not be obtained, but the toe brachial index on the left is significantly decreased suggesting severe peripheral vascular disease on the left also. Head CT 05/22/18 00:00 CONCLUSION: 1. Negative CT Head non contrast. . Lower Extremity Ultrasound 05/22/18 00:00 CONCLUSION: 1. Saphenous vein mapping/measurements as described above. Aorta w/Runoff CTA 05/23/18 00:00 CONCLUSION: 1. Patent inflow and outflow bilaterally. 2. Heavily calcified trifurcation vessels limits their patency evaluation. On the right there is possible straight-line flow through the anterior tibial artery and peroneal artery. The posterior tibial artery is clearly occluded. On the left there is a similar appearance. 3. Atrophic kidneys. 4. Splenomegaly. Upper Extremity Ultrasound 05/23/18 00:00 CONCLUSION: 1. Venous mapping as detailed above. Venous Doppler Study 05/23/18 00:00 CONCLUSION: No evidence of deep venous thrombosis. Catheter Placement 05/28/18 00:00 CONCLUSION: 1. 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 2. Uncomplicated line placement as above. Foot CT 05/28/18 00:00 CONCLUSION: 1. Status post transmetatarsal amputation of the fourth and fifth digits. 2. Status post transphalangeal amputation of the first, second and third digits. 3. Punctate subcutaneous focus of air overlying the dorsal second digit amputation stump with very subtle potential erosive change at the amputation site. 4. Mild diffuse soft tissue swelling overlying the forefoot amputation stump. Foot X-Ray 05/29/18 00:00 CONCLUSION: Status post removal of much of the remaining portions of the second and third proximal phalanges with small bony fragments still seen over these regions. Physical Exam: GENERAL: awakens easily, not in respiratory distress. SKIN: Cool and dry. No generalized rash EYES: Hersey conjunctiva. No petechia or hemorrhage. No scleral icterus. No injection or drainage. EARS, NOSE AND THROAT: Mucous membranes pink and moist. No oral lesions noted. No exudate. No oral thrush. NECK: Trachea midline. Supple and not tender, no meningeal signs CARDIOVASCULAR: Regular rate and rhythm. No murmurs, rubs or gallops heard. Pacer in R upper chest has well healed incision, not red, not swollen, not tender RESPIRATORY: Clear to auscultation. Breath sounds equal bilaterally. No rales , wheezing or rhonchi ABDOMEN: Soft, globular, non-tender, nondistended. Bowel sounds present and normoactive. No guarding. No rebound. EXTREMITIES: No clubbing, cyanosis. Intact dressing to both LE. Intact dressing to his LUE, has STEVEN drain in place NEUROLOGICAL: Non-focal PSYCHIATRIC: Normal affect, calm and cooperative. LINE: No evidence of infection Assessment and Plan - Plan Impression MRSA sepsis, source? Infected AVG, S/P surgery 05/29 Multiple ulcers toes R foot, S/P surgery 05/29 ESRD on HD Encephalopathy due to sepsis, better PVD, BLE Recommendation Continue IV vancomycin S/P surgery to R foot - C/S and path pending Follow all new C/S May need to make changes on plan of Rx once C/S and biopsy results available Follow temps Follow C/S Monitor progress
--- NOTE | 2018-05-30 12:57 | P.PNVS ---
Subjective Subjective/Hospital Course: Pt w/o complaints, pain controlled Objective Vital Signs / I&O: Vital Signs 05/29/18 16:00 05/29/18 16:06 05/29/18 17:46 Temperature 97.5 F L Pulse Rate 68 Respiratory Rate 18 18 Blood Pressure 111/54 L Pulse Oximetry 100 100 05/29/18 20:00 05/30/18 00:00 05/30/18 04:00 Temperature 98.4 F 98.6 F 99.3 F Pulse Rate 72 78 80 Respiratory Rate 18 18 18 Blood Pressure 155/68 H 101/61 146/66 H Pulse Oximetry 100 100 97 05/30/18 08:00 05/30/18 11:07 Temperature 100.2 F H Pulse Rate 81 Respiratory Rate 18 Blood Pressure 152/60 H Pulse Oximetry 98 98 Intake & Output 05/29/18 05/30/18 05/30/18 18:59 06:59 18:59 Intake Total 1059.75 / 1059.75 320 / 320 Output Total 165 / 165 Balance 894.75 / 894.75 295 / 295 Weight 131.3 kg Intake: IV 109.75 / 109.75 DDAVP Inj 39 MCG In NS Inj 50 59.75 / 59.75 ML @ 119.5 mls/hr IV.SIG ONCE ONE Rx#:[id number] Zosyn 2.25 GM Premix 50 ML @ 50 / 50 100 mls/hr IV.SIG Q12H SKIP Rx#: [id number] Oral 800 / 800 320 / 320 Anesthesia Amount 150 / 150 Output: Estimated Blood Loss 155 / 155 Wound Drainage # 1 Left Anterior Arm Bartolo Other: # Incontinent Voids 2 Exam: Left upper extremity wound is clean dry intact. STEVEN drain with bloody output Left BKA wound is clean dry intact. Laboratory Results - last 24 hr 05/29/18 05/29/18 05/29/18 16:30 17:48 20:13 WBC 10.8 RBC 2.08 L Hgb 7.3 L Hct 20.1 L* MCV 96.8 MCH 35.1 H MCHC 36.3 H RDW 15.3 Plt Count 175 D MPV 7.5 Prelim Diff (Auto) Slide review pending Neut % (Auto) 80.6 H Lymph % (Auto) 7.1 L [place] % (Auto) 10.8 H Eos % (Auto) 1.2 Baso % (Auto) 0.3 Neut # (Auto) 8.7 H Lymph # (Auto) 0.8 L [place] # (Auto) 1.2 H Eos # (Auto) 0.1 Baso # (Auto) 0.0 WBC Differential . Diff Scan Auto diff confirmed Differential Comment . Sodium Potassium Chloride Carbon Dioxide Anion Gap BUN Creatinine Estimated GFR POC Glucose 219 H 266 H Random Glucose Calcium Prot Corrected Calcium Magnesium Iron TIBC % Saturation Ferritin Total Bilirubin AST ALT Alkaline Phosphatase Total Protein Albumin Blood Type Antibody Screen MTS Gel Crossmatch 05/29/18 05/30/18 05/30/18 23:42 07:09 07:09 WBC 7.2 RBC 1.80 L Hgb 6.0 L* Hct 17.3 L* MCV 96.5 MCH 33.2 MCHC 34.4 RDW 15.4 Plt Count 151 MPV 7.4 Prelim Diff (Auto) Candy Attendant Neut % (Auto) 75.8 H Lymph % (Auto) 9.6 [place] % (Auto) 11.6 H Eos % (Auto) 2.7 Baso % (Auto) 0.3 Neut # (Auto) 5.5 Lymph # (Auto) 0.7 L [place] # (Auto) 0.8 Eos # (Auto) 0.2 Baso # (Auto) 0.0 WBC Differential . Diff Scan Differential Comment Auto diff final Sodium 133 L Potassium 5.2 H Chloride 96 L Carbon Dioxide 28.0 Anion Gap 9 BUN 61 H Creatinine 7.72 H Estimated GFR 7 L POC Glucose 245 H Random Glucose 185 H Calcium 7.2 L* Prot Corrected Calcium 7.6 L Magnesium 2.4 Iron TIBC % Saturation Ferritin Total Bilirubin 0.6 AST 76 H ALT 14 Alkaline Phosphatase 123 H Total Protein 6.4 Albumin 2.3 L Blood Type Antibody Screen MTS Gel Crossmatch 05/30/18 05/30/18 05/30/18 07:09 08:22 10:05 WBC RBC Hgb Hct MCV MCH MCHC RDW Plt Count MPV Prelim Diff (Auto) Neut % (Auto) Lymph % (Auto) [place] % (Auto) Eos % (Auto) Baso % (Auto) Neut # (Auto) Lymph # (Auto) [place] # (Auto) Eos # (Auto) Baso # (Auto) WBC Differential Diff Scan Differential Comment Sodium Potassium Chloride Carbon Dioxide Anion Gap BUN Creatinine Estimated GFR POC Glucose 227 H Random Glucose Calcium Prot Corrected Calcium Magnesium Iron 23 L TIBC 172 L % Saturation 13.4 L Ferritin 387 Total Bilirubin AST ALT Alkaline Phosphatase Total Protein Albumin Blood Type A Negative Antibody Screen Negative MTS Gel Crossmatch See Detail 05/30/18 12:07 WBC RBC Hgb Hct MCV MCH MCHC RDW Plt Count MPV Prelim Diff (Auto) Neut % (Auto) Lymph % (Auto) [place] % (Auto) Eos % (Auto) Baso % (Auto) Neut # (Auto) Lymph # (Auto) [place] # (Auto) Eos # (Auto) Baso # (Auto) WBC Differential Diff Scan Differential Comment Sodium Potassium Chloride Carbon Dioxide Anion Gap BUN Creatinine Estimated GFR POC Glucose 230 H Random Glucose Calcium Prot Corrected Calcium Magnesium Iron TIBC % Saturation Ferritin Total Bilirubin AST ALT Alkaline Phosphatase Total Protein Albumin Blood Type Antibody Screen MTS Gel Crossmatch Assessment and Plan - Assessment (1) Fever Code(s): R50.9 - Fever, unspecified Status: Acute - Plan 63 yo male with fever and now bacteremia Status post left BKA postop day #2, explantation of the left AV graft postop day 1 Hemoglobin 6, transfused 2 packed RBCs Continue with local wound care Consult PT Casper Collins MD [phone] (1) Fever Qualifiers: Fever type: unspecified Qualified Code(s): R50.9 - Fever, unspecified
--- NOTE | 2018-05-30 13:47 | P.PN ---
Subjective Interval history: Follow-up anemia hemoglobin of 6. Agrees with blood transfusion denies gross bleeding does not recall having endoscopy. States he takes aspirin and Brilinta status post cardiac stent in August of 2017. Physical Exam Vital signs: Vital Signs 05/29/18 16:00 05/29/18 16:06 05/29/18 17:46 Temperature 97.5 F L Pulse Rate 68 Respiratory Rate 18 18 Blood Pressure 111/54 L Pulse Oximetry 100 100 05/29/18 20:00 05/30/18 00:00 05/30/18 04:00 Temperature 98.4 F 98.6 F 99.3 F Pulse Rate 72 78 80 Respiratory Rate 18 18 18 Blood Pressure 155/68 H 101/61 146/66 H Pulse Oximetry 100 100 97 05/30/18 08:00 05/30/18 11:07 05/30/18 13:00 Temperature 100.2 F H 99 F Pulse Rate 81 79 Respiratory Rate 18 18 Blood Pressure 152/60 H 132/59 L Pulse Oximetry 98 98 98 05/30/18 13:16 Temperature 99 F Pulse Rate 76 Respiratory Rate 18 Blood Pressure 131/59 L Pulse Oximetry 97 Intake & Output 05/29/18 05/30/18 05/30/18 18:59 06:59 18:59 Intake Total 1059.75 / 1059.75 320 / 320 0 / 0 Output Total 165 / 165 Balance 894.75 / 894.75 295 / 295 0 / 0 Weight 131.3 kg Intake: IV 109.75 / 109.75 DDAVP Inj 39 MCG In NS Inj 50 59.75 / 59.75 ML @ 119.5 mls/hr IV.SIG ONCE ONE Rx#:[id number] Zosyn 2.25 GM Premix 50 ML @ 50 / 50 100 mls/hr IV.SIG Q12H SKIP Rx#: [id number] Oral 800 / 800 320 / 320 Anesthesia Amount 150 / 150 Intake (Blood Product) Amt 0 / 0 Rbc As-3 Leukoreduced Unit 0 / 0 [id number] Output: Estimated Blood Loss 155 / 155 Wound Drainage # 1 Left Anterior Arm Bartolo Other: # Incontinent Voids 2 Narrative: wdwn 63yo w m aaox3 nad pleasant heart s1s2 reg lungs no wrr, vas cath left sup clav abd soft nondt pos bs ext left ue bandaged, right hand edema, LLE bka bandaged, R LE foot bandaged, no edema Skin is warm no lesions Results - Labs CBC & Chem 7: 05/30/18 07:09 05/30/18 07:09 Laboratory Results - last 24 hr 05/29/18 05/29/18 05/29/18 16:30 17:48 20:13 WBC 10.8 RBC 2.08 L Hgb 7.3 L Hct 20.1 L* MCV 96.8 MCH 35.1 H MCHC 36.3 H RDW 15.3 Plt Count 175 D MPV 7.5 Prelim Diff (Auto) Slide review pending Neut % (Auto) 80.6 H Lymph % (Auto) 7.1 L [place] % (Auto) 10.8 H Eos % (Auto) 1.2 Baso % (Auto) 0.3 Neut # (Auto) 8.7 H Lymph # (Auto) 0.8 L [place] # (Auto) 1.2 H Eos # (Auto) 0.1 Baso # (Auto) 0.0 WBC Differential . Diff Scan Auto diff confirmed Differential Comment . Sodium Potassium Chloride Carbon Dioxide Anion Gap BUN Creatinine Estimated GFR POC Glucose 219 H 266 H Random Glucose Calcium Prot Corrected Calcium Magnesium Iron TIBC % Saturation Ferritin Total Bilirubin AST ALT Alkaline Phosphatase Total Protein Albumin Blood Type Antibody Screen MTS Gel Crossmatch 05/29/18 05/30/18 05/30/18 23:42 07:09 07:09 WBC 7.2 RBC 1.80 L Hgb 6.0 L* Hct 17.3 L* MCV 96.5 MCH 33.2 MCHC 34.4 RDW 15.4 Plt Count 151 MPV 7.4 Prelim Diff (Auto) [facility] Neut % (Auto) 75.8 H Lymph % (Auto) 9.6 [place] % (Auto) 11.6 H Eos % (Auto) 2.7 Baso % (Auto) 0.3 Neut # (Auto) 5.5 Lymph # (Auto) 0.7 L [place] # (Auto) 0.8 Eos # (Auto) 0.2 Baso # (Auto) 0.0 WBC Differential . Diff Scan Differential Comment Auto diff final Sodium 133 L Potassium 5.2 H Chloride 96 L Carbon Dioxide 28.0 Anion Gap 9 BUN 61 H Creatinine 7.72 H Estimated GFR 7 L POC Glucose 245 H Random Glucose 185 H Calcium 7.2 L* Prot Corrected Calcium 7.6 L Magnesium 2.4 Iron TIBC % Saturation Ferritin Total Bilirubin 0.6 AST 76 H ALT 14 Alkaline Phosphatase 123 H Total Protein 6.4 Albumin 2.3 L Blood Type Antibody Screen MTS Gel Crossmatch 05/30/18 05/30/18 05/30/18 07:09 08:22 10:05 WBC RBC Hgb Hct MCV MCH MCHC RDW Plt Count MPV Prelim Diff (Auto) Neut % (Auto) Lymph % (Auto) [place] % (Auto) Eos % (Auto) Baso % (Auto) Neut # (Auto) Lymph # (Auto) [place] # (Auto) Eos # (Auto) Baso # (Auto) WBC Differential Diff Scan Differential Comment Sodium Potassium Chloride Carbon Dioxide Anion Gap BUN Creatinine Estimated GFR POC Glucose 227 H Random Glucose Calcium Prot Corrected Calcium Magnesium Iron 23 L TIBC 172 L % Saturation 13.4 L Ferritin 387 Total Bilirubin AST ALT Alkaline Phosphatase Total Protein Albumin Blood Type A Negative Antibody Screen Negative MTS Gel Crossmatch See Detail 05/30/18 12:07 WBC RBC Hgb Hct MCV MCH MCHC RDW Plt Count MPV Prelim Diff (Auto) Neut % (Auto) Lymph % (Auto) [place] % (Auto) Eos % (Auto) Baso % (Auto) Neut # (Auto) Lymph # (Auto) [place] # (Auto) Eos # (Auto) Baso # (Auto) WBC Differential Diff Scan Differential Comment Sodium Potassium Chloride Carbon Dioxide Anion Gap BUN Creatinine Estimated GFR POC Glucose 230 H Random Glucose Calcium Prot Corrected Calcium Magnesium Iron TIBC % Saturation Ferritin Total Bilirubin AST ALT Alkaline Phosphatase Total Protein Albumin Blood Type Antibody Screen MTS Gel Crossmatch - Procedures Left BKA Vascath AVG explantation s/p revision 05/29/18 of R 2nd and 3rd digit stumps Angiogram Assessment and Plan - Assessment (1) Chest pain Code(s): R07.9 - Chest pain, unspecified Status: Acute (2) ESRD (end stage renal disease) on dialysis Code(s): N18.6 - End stage renal disease; Z99.2 - Dependence on renal dialysis Status: Acute (3) DM (diabetes mellitus) Code(s): E11.9 - Type 2 diabetes mellitus without complications Status: Chronic - Plan -MRSA SEPSIS - source is possible LUE AVG infection and or multiple diabetic foot wounds with osteomyelitis cont abx vancomycin for 2 weeks w dialysis til 06/04, s/p avg explantation and amputations, cont abx per ID rec, await cxs. -AVF infection/ pseudoaneurysm, malfunction, s/p vas cath placement by IR and graft explantation by vascular -OSTEOMYELITIS LEFT FOOT s/p L BKA 05/27/18 - cont wound care and pt, iv abx per ID. 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 Hyperglycemic restart Lantus at a lower dose -HTN cont norvasc -DYSLIPIDEMIA cont statin -ATYPICAL CP w no acs, non cardiac trop elevation, cardiology following -ACUTE METABOLIC ENCEPHALOPATHY - resolving -SEIZURE DO - stable on home meds -THROMBOCYTOPENIA - improving -OBESITY BMI 37 - diet activity when stable -ANEMIA w drop in HH , prob has chronic anemia due to ckd, will monitor, transfuse prn keep hemoglobin at least 8, epo per nephrology. Agree with 2 units packed RBC transfusion hemoglobin of 6 today. Hemoccult stools if negative may resume antiplatelets DVT PROPHYLAXIS - scd. Chemical prophylaxis if negative guaiac DISPO - planning for rehab, he would like [facility] Discharge Planning: Consult case management (1) Chest pain Qualifiers: Chest pain type: other chest pain Qualified Code(s): R07.89 - Other chest pain; R07.8 - Other chest pain
--- NOTE | 2018-05-30 16:02 | P.PNNP ---
Subjective Interval history: Resting comfortably with no complaints. HGB low today at 6.0, receiving blood transfusion. <ChaloivetteChrista díaz - Last Filed: 05/30/18 15:53> Physical Exam Vital signs: Vital Signs 05/29/18 16:00 05/29/18 16:06 05/29/18 17:46 Temperature 97.5 F L Pulse Rate 68 Respiratory Rate 18 18 Blood Pressure 111/54 L Pulse Oximetry 100 100 05/29/18 20:00 05/30/18 00:00 05/30/18 04:00 Temperature 98.4 F 98.6 F 99.3 F Pulse Rate 72 78 80 Respiratory Rate 18 18 18 Blood Pressure 155/68 H 101/61 146/66 H Pulse Oximetry 100 100 97 05/30/18 08:00 05/30/18 11:07 05/30/18 12:00 Temperature 100.2 F H 99 F Pulse Rate 81 79 Respiratory Rate 18 18 Blood Pressure 152/60 H 132/59 L Pulse Oximetry 98 98 98 05/30/18 13:00 05/30/18 13:16 05/30/18 13:17 Temperature 99 F 99 F 98.4 F Pulse Rate 79 76 77 Respiratory Rate 18 18 17 Blood Pressure 132/59 L 131/59 L 141/63 H Pulse Oximetry 98 97 Intake & Output 05/29/18 05/30/18 05/30/18 18:59 06:59 18:59 Intake Total 1059.75 / 1059.75 320 / 320 0 / 0 Output Total 165 / 165 Balance 894.75 / 894.75 295 / 295 0 / 0 Weight 131.3 kg Intake: IV 109.75 / 109.75 DDAVP Inj 39 MCG In NS Inj 50 59.75 / 59.75 ML @ 119.5 mls/hr IV.SIG ONCE ONE Rx#:[id number] Zosyn 2.25 GM Premix 50 ML @ 50 / 50 100 mls/hr IV.SIG Q12H [facility] Rx#: [id number] Oral 800 / 800 320 / 320 Anesthesia Amount 150 / 150 Intake (Blood Product) Amt 0 / 0 Rbc As-3 Leukoreduced Unit 0 / 0 [id number] Output: Estimated Blood Loss 155 / 155 Wound Drainage # 1 Left Anterior Arm Bart[place] Other: # Incontinent Voids 2 Narrative: GENERAL: Awake and alert. NAD SKIN: Warm and dry. NECK: Supple, trachea midline. No JVD. CARDIOVASCULAR: Regular rate and rhythm without murmurs, gallops, or rubs. RESPIRATORY: Breath sounds equal bilaterally. No accessory muscle use. GASTROINTESTINAL: Abdomen soft, non-tender, nondistended. MUSCULOSKELETAL: No cyanosis, or edema. Right lower extremity with MARIBETH. Left upper arm with MARIBETH wrap and STEVEN drain. Left lower extremity BKA, MARIBETH on. BACK: Nontender without obvious deformity. No CVA tenderness. <Christa Velasquez - Last Filed: 05/30/18 15:53> Vital signs: Vital Signs 05/31/18 21:00 06/01/18 00:00 06/01/18 08:00 Temperature 98.7 F 98.6 F Pulse Rate 73 70 Respiratory Rate 17 17 Blood Pressure 165/72 H 190/79 H Pulse Oximetry 98 97 100 06/01/18 11:20 06/01/18 12:00 06/01/18 16:00 Temperature 98.3 F 98.8 F Pulse Rate 73 72 Respiratory Rate 18 16 Blood Pressure 176/76 H 136/61 Pulse Oximetry 99 97 95 Intake & Output 06/01/18 06/01/18 06/02/18 06:59 18:59 06:59 Intake Total 480 / 480 960 / 960 Output Total 100 / 100 210 / 210 Balance 380 / 380 750 / 750 -10 10 Weight 133.2 kg Intake: Oral 480 / 480 960 / 960 Output: Urine 100 / 100 200 / 200 Wound Drainage # 1 Left Anterior Arm Bartolo Other: # Voids 1 <Moni Alvarado - Last Filed: 06/01/18 20:27> Assessment and Plan - Assessment (1) ESRD (end stage renal disease) on dialysis Code(s): N18.6 - End stage renal disease; Z99.2 - Dependence on renal dialysis Status: Acute Plan: Patient with end stage renal disease on HD TTS. Epogen with dialysis. Vas cath in left IJ MRSA in graft, Excision of AVG, STEVEN drain present. Plan for HD tomorrow. (2) DM (diabetes mellitus) Code(s): E11.9 - Type 2 diabetes mellitus without complications Status: Chronic Plan: Recommend to maintain blood sugars between 140 mg/dl to 180 mg/dl while hospitalized. (3) Anemia Code(s): D64.9 - Anemia, unspecified Status: Acute Plan: Epogen ordered with dialysis. HGB stable at 6.0 Being transfused with PRBC (4) Sepsis Code(s): A41.9 - Sepsis, unspecified organism Status: Acute Plan: Blood cultures positive for MRSA. Has MRSA Bacteremia, most likely from feet infection. Antibiotics per ID recommendations, renal dose as appropriate (5) Osteomyelitis of left foot Code(s): M86.9 - Osteomyelitis, unspecified Status: Acute Plan: PVD with osteomyelitis Left BKA on . <Christa Velasquez - Last Filed: 05/30/18 15:53> - Assessment (1) ESRD (end stage renal disease) on dialysis Code(s): N18.6 - End stage renal disease; Z99.2 - Dependence on renal dialysis Status: Acute Plan: Patient seen and examined, agree with above. Post Excision of AVG due to sepsis. Has Vascath for HD. (2) DM (diabetes mellitus) Code(s): E11.9 - Type 2 diabetes mellitus without complications Status: Chronic (3) Anemia Code(s): D64.9 - Anemia, unspecified Status: Acute (4) Sepsis Code(s): A41.9 - Sepsis, unspecified organism Status: Acute (5) Osteomyelitis of left foot Code(s): M86.9 - Osteomyelitis, unspecified Status: Acute <Moni Alvarado - Last Filed: 06/01/18 20:27>
--- NOTE | 2018-05-30 17:45 | P.PNPOD ---
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, Dr Rueda, 05/29/18 Physical Exam Vital signs: Vital Signs 05/29/18 17:46 05/29/18 20:00 05/30/18 00:00 Temperature 98.4 F 98.6 F Pulse Rate 72 78 Respiratory Rate 18 18 Blood Pressure 155/68 H 101/61 Pulse Oximetry 100 100 100 05/30/18 04:00 05/30/18 08:00 05/30/18 11:07 Temperature 99.3 F 100.2 F H Pulse Rate 80 81 Respiratory Rate 18 18 Blood Pressure 146/66 H 152/60 H Pulse Oximetry 97 98 98 05/30/18 12:00 05/30/18 13:00 05/30/18 13:16 Temperature 99 F 99 F 99 F Pulse Rate 79 79 76 Respiratory Rate 18 18 18 Blood Pressure 132/59 L 132/59 L 131/59 L Pulse Oximetry 98 98 97 05/30/18 13:17 05/30/18 16:00 05/30/18 16:29 Temperature 98.4 F 98.3 F Pulse Rate 77 68 67 Respiratory Rate 17 18 17 Blood Pressure 141/63 H 134/63 115/54 L Pulse Oximetry 97 99 05/30/18 16:54 05/30/18 17:35 Temperature 98.7 F 98.8 F Pulse Rate 68 70 Respiratory Rate 18 17 Blood Pressure 118/58 L 117/58 L Pulse Oximetry 100 100 Intake & Output 05/29/18 05/30/18 05/30/18 18:59 06:59 18:59 Intake Total 1059.75 / 1059.75 320 / 320 20 Output Total 165 / 165 Balance 894.75 / 894.75 295 / 295 Weight 131.3 kg Intake: IV 109.75 / 109.75 DDAVP Inj 39 MCG In NS Inj 50 59.75 / 59.75 ML @ 119.5 mls/hr IV.SIG ONCE ONE Rx#:[id number] Zosyn 2.25 GM Premix 50 ML @ 50 / 50 100 mls/hr IV.SIG Q12H SKIP Rx#: [id number] Oral 800 / 800 320 / 320 Anesthesia Amount 150 / 150 Other 20 / 20 Rbc As-3 Leukoreduced Unit [id number] Intake (Blood Product) Amt 0 / 0 Rbc As-3 Leukoreduced Unit 0 / 0 [id number] Rbc As-3 Leukoreduced Unit 0 / 0 [id number] Output: Estimated Blood Loss 155 / 155 Wound Drainage # 1 Left Anterior Arm Bartolo Other: # Incontinent Voids 2 Narrative: sutures intact right foot digit amputation sites. Medications and Allergies Active Medications: Active Medications Acetaminophen (Tylenol) 650 mg PO Q4H PRN PRN Reason: Temp > 100.4 Last Admin: 05/21/18 08:42 Dose: 650 mg Acetaminophen (Tylenol) 650 mg PO UNSCH PRN PRN Reason: SEE LABEL COMMENTS Hydrocodone Bitart/Acetaminophen (Katy 5/325) 1 tab PO Q4H PRN PRN Reason: PAIN SCALE 1 TO 10 Last Admin: 05/30/18 16:51 Dose: 1 tab Amlodipine Besylate (Norvasc) 10 mg PO DAILY ON LICENSE OF [facility] Last Admin: 05/30/18 08:26 Dose: 10 mg Aspirin (Aspirin Chew) 81 mg PO DAILY ON LICENSE OF [facility] Last Admin: 05/30/18 08:27 Dose: Not Given Atorvastatin Calcium (Lipitor) 20 mg PO [facility] Last Admin: 05/29/18 21:29 Dose: 20 mg Bisacodyl (Dulcolax Supp) 10 mg RECTAL DAILY PRN PRN Reason: SEVERE CONSITIPATION Bisacodyl (Dulcolax Supp) 10 mg RECTAL DAILY PRN PRN Reason: SEVERE CONSITIPATION Calcitriol (Rocaltrol) 0.25 mcg PO DAILY ON LICENSE OF [facility] Last Admin: 05/30/18 08:24 Dose: 0.25 mcg Clonidine HCl (Catapres) 0.1 mg PO UNSCH PRN PRN Reason: SEE LABEL COMMENTS Last Admin: 05/25/18 19:28 Dose: 0.1 mg Dextrose (D50w Vial) 50 ml IV.PUSH UNSCH PRN PRN Reason: PER HYPOGLYCEMIA PROTOCOL Diphenhydramine HCl (Benadryl) 25 mg PO UNSCH PRN PRN Reason: SEE LABEL COMMENTS Epoetin Stefano (Epogen Inj) 6,000 unit IV.PUSH UNSCH PRN PRN Reason: SEE LABEL COMMENTS Last Admin: 05/25/18 17:54 Dose: 6,000 unit Gabapentin (Neurontin) 300 mg PO BID ON LICENSE OF [facility] Last Admin: 05/30/18 08:24 Dose: 300 mg Gelatin (Gelfoam 12 Mm/7 Mm Topical) 1 foam TOPICAL PRN PRN PRN Reason: help stop bleeding from site Gentamicin Sulfate (Gentamicin Inj) 20 mg OTHER WITH DIALYSIS PRN PRN Reason: Dwell Gentamycin Lock Glucagon (Glucagon Inj) 1 mg OTHER PRN PRN PRN Reason: for Hypoglycemia Protocol Heparin Sodium (Porcine) (Heparin Inj) 8,000 units OTHER WITH DIALYSIS PRN PRN Reason: for machine prime Heparin Sodium (Porcine) (Heparin Inj) 1,000 units OTHER WITH DIALYSIS PRN PRN Reason: Dwell Heparin to Fill Catheter Albumin Human (Flexbumin 25% Inj) 100 mls @ 60 mls/hr IV.SIG WITH DIALYSIS PRN PRN Reason: hypotension / volume replace Sodium Chloride (Ns Inj) 1,000 mls @ 0 mls/hr OTHER .Q0M PRN PRN Reason: for prime and rinse back Sodium Chloride (Ns Inj) 1,000 mls @ 200 mls/hr OTHER .Q5H PRN PRN Reason: for dialyzer flush PRN Sodium Chloride (Ns Inj) 1,000 mls @ 0 mls/hr IV.CONT .Q0M PRN PRN Reason: hypotension / volume replace Vancomycin HCl 1,000 mg/ (Sodium Chloride) 250 mls @ 250 mls/hr IV.SIG WITH DIALYSIS ON LICENSE OF [facility] Last Infusion: 05/25/18 18:19 Dose: Infused Sodium Chloride (Ns Inj) 500 mls @ 30 mls/hr IV.SIG .Q10H ON LICENSE OF [facility] Last Admin: 05/27/18 13:08 Dose: Not Given Insulin Aspart (Novolog Insulin Correctional Sugar Inj) 0 unit SQ ACHS ON LICENSE OF [facility]; Protocol Last Admin: 05/30/18 16:52 Dose: 3 unit Insulin Detemir (Levemir Inj) 8 unit SQ DAILY ON LICENSE OF [facility] Lactulose (Lactulose Liq) 30 ml PO DAILY PRN PRN Reason: SEVERE CONSITIPATION Mannitol (Mannitol Inj) 12.5 gm IV.PUSH UNSCH PRN PRN Reason: hypotension / volume replace Methocarbamol (Robaxin) 500 mg PO QID ON LICENSE OF [facility] Last Admin: 05/30/18 17:07 Dose: 500 mg Metoprolol Tartrate (Lopressor) 25 mg PO BID ON LICENSE OF [facility] Last Admin: 05/30/18 08:26 Dose: 25 mg Morphine Sulfate (Morphine Inj) 2 mg IV.PUSH Q3H PRN PRN Reason: BREAKTHROUGH PAIN Last Admin: 05/30/18 12:13 Dose: 2 mg Nitroglycerin (Nitro-Bid 2% Oint) 1 inch TOPICAL Q6HR ON LICENSE OF [facility] Last Admin: 05/30/18 17:07 Dose: 1 inch Nitroglycerin (Nitrostat Sl) 0.4 mg SL Q5M PRN PRN Reason: CHEST PAIN Ondansetron HCl (Zofran Inj) 4 mg IV.PUSH Q6H PRN PRN Reason: NAUSEA OR VOMITING Ondansetron HCl (Zofran Inj) 4 mg IV.PUSH UNSCH PRN PRN Reason: NAUSEA OR VOMITING Ondansetron HCl (Zofran Odt) 4 mg PO Q6H PRN PRN Reason: NAUSEA OR VOMITING Phenytoin Sodium (Dilantin) 200 mg PO BID ON LICENSE OF [facility] Last Admin: 05/30/18 08:24 Dose: 200 mg Promethazine HCl (Phenergan Supp) 25 mg RECTAL Q6H PRN PRN Reason: NAUSEA OR VOMITING Senna/Docusate Sodium (Winifred-Colace) 1 tab PO BID ON LICENSE OF [facility] Last Admin: 05/30/18 08:26 Dose: 1 tab Sennosides (Senokot) 17.2 mg PO Q12H PRN PRN Reason: Moderate Constipation Sodium Chloride (Ns Flush) 2 ml IV.FLUSH BID ON LICENSE OF [facility] Last Admin: 05/30/18 08:19 Dose: 2 ml Sodium Chloride (Ns Flush) 2 ml IV.FLUSH PRN PRN PRN Reason: FLUSH AFTER USING IV ACCESS Last Admin: 05/30/18 03:43 Dose: 2 ml Sodium Chloride (Ns Flush) 5 ml IV.FLUSH PRN PRN PRN Reason: flush each lumen during HD Sodium Chloride (Ns Flush) 2 ml IV.FLUSH PRN PRN PRN Reason: FLUSH AFTER USING IV ACCESS Sodium Chloride (Ns Flush) 2 ml IV.FLUSH BID ON LICENSE OF [facility] Last Admin: 05/30/18 08:29 Dose: 2 ml Ticagrelor (Brilinta) 90 mg PO BID ON LICENSE OF [facility] Last Admin: 05/30/18 08:27 Dose: Not Given Allergies Allergy/AdvReac Type Severity Reaction Status Date / Time *MDRO Multi-Drug Resistant AdvReac Intermediate Abdominal Uncoded 05/21/18 00:22 Organism Pain Home Medications Medication Instructions Recorded Confirmed Type aspirin 81 mg PO DAILY 02/20/18 05/21/18 History enalapril maleate 5 mg PO DAILY 02/20/18 05/21/18 History gabapentin 300 mg PO BID 02/20/18 05/21/18 History lisinopril 10 mg PO DAILY 02/20/18 05/21/18 History metoclopramide HCl 5 mg PO TID 02/20/18 05/21/18 History phenytoin sodium extended 200 mg PO BID 02/20/18 05/21/18 History [Phenytek] insulin detemir U-100 [Levemir 34 units SUB-Q DAILY 03/15/18 05/21/18 History U-100 Insulin] Results - Labs CBC & Chem 7: 05/30/18 07:09 05/30/18 07:09 Laboratory Results - last 24 hr 05/29/18 05/29/18 05/29/18 17:48 20:13 23:42 WBC 10.8 RBC 2.08 L Hgb 7.3 L Hct 20.1 L* MCV 96.8 MCH 35.1 H MCHC 36.3 H RDW 15.3 Plt Count 175 D MPV 7.5 Prelim Diff (Auto) Slide review pending Neut % (Auto) 80.6 H Lymph % (Auto) 7.1 L Armstrong % (Auto) 10.8 H Eos % (Auto) 1.2 Baso % (Auto) 0.3 Neut # (Auto) 8.7 H Lymph # (Auto) 0.8 L Armstrong # (Auto) 1.2 H Eos # (Auto) 0.1 Baso # (Auto) 0.0 WBC Differential . Diff Scan Auto diff confirmed Differential Comment . Sodium Potassium Chloride Carbon Dioxide Anion Gap BUN Creatinine Estimated GFR POC Glucose 266 H 245 H Random Glucose Calcium Prot Corrected Calcium Magnesium Iron TIBC % Saturation Ferritin Total Bilirubin AST ALT Alkaline Phosphatase Total Protein Albumin Blood Type Antibody Screen MTS Gel Crossmatch 05/30/18 05/30/18 05/30/18 07:09 07:09 07:09 WBC 7.2 RBC 1.80 L Hgb 6.0 L* Hct 17.3 L* MCV 96.5 MCH 33.2 MCHC 34.4 RDW 15.4 Plt Count 151 MPV 7.4 Prelim Diff (Auto) Fast [employer] Att[employer] Neut % (Auto) 75.8 H Lymph % (Auto) 9.6 Armstrong % (Auto) 11.6 H Eos % (Auto) 2.7 Baso % (Auto) 0.3 Neut # (Auto) 5.5 Lymph # (Auto) 0.7 L Armstrong # (Auto) 0.8 Eos # (Auto) 0.2 Baso # (Auto) 0.0 WBC Differential . Diff Scan Differential Comment Auto diff final Sodium 133 L Potassium 5.2 H Chloride 96 L Carbon Dioxide 28.0 Anion Gap 9 BUN 61 H Creatinine 7.72 H Estimated GFR 7 L POC Glucose Random Glucose 185 H Calcium 7.2 L* Prot Corrected Calcium 7.6 L Magnesium 2.4 Iron 23 L TIBC 172 L % Saturation 13.4 L Ferritin 387 Total Bilirubin 0.6 AST 76 H ALT 14 Alkaline Phosphatase 123 H Total Protein 6.4 Albumin 2.3 L Blood Type Antibody Screen MTS Gel Crossmatch 05/30/18 05/30/18 05/30/18 08:22 10:05 12:07 WBC RBC Hgb Hct MCV MCH MCHC RDW Plt Count MPV Prelim Diff (Auto) Neut % (Auto) Lymph % (Auto) Armstrong % (Auto) Eos % (Auto) Baso % (Auto) Neut # (Auto) Lymph # (Auto) Armstrong # (Auto) Eos # (Auto) Baso # (Auto) WBC Differential Diff Scan Differential Comment Sodium Potassium Chloride Carbon Dioxide Anion Gap BUN Creatinine Estimated GFR POC Glucose 227 H 230 H Random Glucose Calcium Prot Corrected Calcium Magnesium Iron TIBC % Saturation Ferritin Total Bilirubin AST ALT Alkaline Phosphatase Total Protein Albumin Blood Type A Negative Antibody Screen Negative MTS Gel Crossmatch See Detail Microbiology 05/29/18 09:21 Tissue - Toe Acid Fast Bacilli Smear - Final No acid fast bacilli seen 05/29/18 09:30 Other Acid Fast Bacilli Smear - Final No acid fast bacilli seen 05/29/18 09:12 Wound - Toe Acid Fast Bacilli Smear - Final No acid fast bacilli seen 05/29/18 09:03 Tissue - Toe Acid Fast Bacilli Smear - Final No acid fast bacilli seen 05/29/18 08:59 Wound - Foot Acid Fast Bacilli Smear - Final No acid fast bacilli seen 05/29/18 10:30 Wound - Arm Acid Fast Bacilli Smear - Final No acid fast bacilli seen 05/29/18 10:30 Wound - Arm Acid Fast Bacilli Smear - Final No acid fast bacilli seen 05/29/18 09:21 Tissue - Toe Gram Stain - Final 05/29/18 09:21 Tissue - Toe Wound Culture - Preliminary S. aureus MRSA gram negative rods 05/29/18 09:30 Wound - Toe Gram Stain - Final 05/29/18 09:30 Wound - Toe Wound Culture - Preliminary S. aureus MRSA gram negative rods 05/29/18 09:12 Wound - Toe Gram Stain - Final 05/29/18 09:12 Wound - Toe Wound Culture - Preliminary S. aureus MRSA gram negative rods 05/29/18 09:03 Tissue - Toe Gram Stain - Final 05/29/18 09:03 Tissue - Toe Wound Culture - Preliminary S. aureus MRSA 05/29/18 08:59 Wound - Foot Gram Stain - Final 05/29/18 08:59 Wound - Foot Wound Culture - Preliminary No growth in 24 hours 05/29/18 10:30 Wound - Arm Gram Stain - Final 05/29/18 10:30 Wound - Arm Wound Culture - Preliminary S. aureus MRSA 05/29/18 10:30 Wound - Arm Gram Stain - Final 05/29/18 10:30 Wound - Arm Wound Culture - Preliminary S. aureus MRSA Assessment and Plan - Assessment (1) Osteomyelitis of right foot Code(s): M86.9 - Osteomyelitis, unspecified Status: Acute (2) Osteomyelitis of left foot Code(s): M86.9 - Osteomyelitis, unspecified Status: Acute - Plan Dressing changed Orders in for nursing 2x/week right foot dry sterile dressing change weightbearing as tolerated right foot in surgical shoe OK Follow up with Dr Rueda 1 week after discharge for further evaluation. Re-consult if new issues arise
[2018-05-31 05:24] LABS: Baso % (Auto) 0.4 % (0.0-2.0); Eos # (Auto) 0.2 th/mm3 (0.0-0.4); Eos % (Auto) 2.9 % (0.0-4.0); Hemoglobin 7.1 gm/dL (13.0-17.0); Lymph # (Auto) 0.8 th/mm3 (1.0-4.8); Lymph % (Auto) 9.6 % (9.0-44.0); Mean Corpuscular HGB Conc 35.1 % (32.0-36.0); Mean Corpuscular Hemoglobin 33.2 pg (27.0-34.0); Mean Corpuscular Volume 94.8 fL (80.0-100.0); Mean Platelet Volume 7.5 fL (7.0-11.0); Mono # (Auto) 0.9 th/mm3 (0.0-0.9); Mono % (Auto) 10.3 % (0.0-8.0); Neut # (Auto) 6.6 th/mm3 (1.8-7.7); Neut % (Auto) 76.8 % (16.0-70.0); Platelet Count 158 th/mm3 (150-450); Red Blood Count 2.13 mil/mm3 (4.50-5.90); White Blood Count 8.5 th/mm3 (4.0-11.0)
[2018-05-31 05:50] LABS: Hematocrit 20.2 % (39.0-51.0)
[2018-05-31 05:53] LABS: Calcium 7.1 mg/dL (8.5-10.1); Carbon Dioxide 26.8 meq/L (21.0-32.0); Magnesium 2.4 mg/dL (1.5-2.5); Potassium 5.3 meq/L (3.5-5.1)
[2018-05-31 06:02] LABS: Albumin 2.2 g/dL (3.4-5.0); Calcium-Albumin Corrected 8.5 mg/dL (8.5-10.1)
[2018-05-31] MEDS: Senna/Docusate Sodium 8.6/50 MG Tablet PO SCH ×2 (08:54→20:54)
[2018-05-31] MEDS: Gabapentin 300 MG Capsule PO SCH ×2 (08:54→20:53)
[2018-05-31] MEDS: Calcitriol 0.25 MCG Capsule PO SCH (08:55)
[2018-05-31] MEDS: Methocarbamol 500 MG Tablet PO SCH ×4 (08:55→20:54)
[2018-05-31] MEDS: Phenytoin Sodium 100 MG Capsule PO SCH ×2 (08:55→20:53)
[2018-05-31] MEDS: amLODIPine 5 MG Tablet PO SCH (08:55)
[2018-05-31] MEDS: Metoprolol Tartrate 25 MG Tablet PO SCH ×2 (08:55→20:54)
[2018-05-31] MEDS: Insulin Detemir Inj 1,000 UNIT/10 ML Vial SQ SCH (08:57)
[2018-05-31] MEDS: Insulin NovoLOG Aspart Correctional Sugar Inj SQ SCH ×4 (08:58→21:07)
[2018-05-31] MEDS: Sodium Chloride 0.9% 2 ML Flush BID IV.FLUSH SCH ×2 (09:00→20:54)
[2018-05-31] MEDS ORDERED: Sodium Chlor 0.9% Inj 250 ML IV.SIG SCH (10:00)
--- NOTE | 2018-05-31 11:05 | P.PNVS ---
Subjective Subjective/Hospital Course: Pt w/o complaints, pain controlled Objective Vital Signs / I&O: Vital Signs 05/30/18 11:07 05/30/18 12:00 05/30/18 13:00 Temperature 99 F 99 F Pulse Rate 79 79 Respiratory Rate 18 18 Blood Pressure 132/59 L 132/59 L Pulse Oximetry 98 98 98 05/30/18 13:16 05/30/18 13:17 05/30/18 16:00 Temperature 99 F 98.4 F 98.3 F Pulse Rate 76 77 68 Respiratory Rate 18 17 18 Blood Pressure 131/59 L 141/63 H 134/63 Pulse Oximetry 97 97 05/30/18 16:29 05/30/18 16:54 05/30/18 17:35 Temperature 98.7 F 98.8 F Pulse Rate 67 68 70 Respiratory Rate 17 18 17 Blood Pressure 115/54 L 118/58 L 117/58 L Pulse Oximetry 99 100 100 05/30/18 20:00 05/31/18 00:00 05/31/18 08:00 Temperature 98.6 F 99.1 F 99.0 F Pulse Rate 65 66 62 Respiratory Rate 16 16 18 Blood Pressure 146/65 H 164/66 H 183/74 H Pulse Oximetry 97 98 98 05/31/18 10:22 05/31/18 10:42 Temperature 99.1 F 99.1 F Pulse Rate 73 69 Respiratory Rate 20 20 Blood Pressure 135/70 139/71 Pulse Oximetry Intake & Output 05/30/18 05/31/18 05/31/18 18:59 06:59 18:59 Intake Total 400 / 400 400 / 400 Output Total 210 / 210 Balance 190 / 190 390 / 390 Weight 132.1 kg Intake: Other Rbc As-3 Leukoreduced Unit [id number] Intake (Blood Product) Amt 0 / 0 400 / 400 400 / 400 Rbc As-3 Leukoreduced Unit 0 / 0 400 / 400 [id number] Rbc As-3 Leukoreduced Unit 400 / 400 [id number] Rbc As-3 Leukoreduced Unit 0 / 0 [id number] Output: Urine 200 / 200 Wound Drainage # 1 Left Anterior Arm Bartolo Other: # Voids 3 Physical Exam: Left upper extremity wound clean dry intact STEVEN with serous and his output Left BKA wound clean dry intact Laboratory Results - last 24 hr 05/30/18 05/30/18 05/30/18 10:05 12:07 16:50 WBC RBC Hgb Hct MCV MCH MCHC RDW Plt Count MPV Prelim Diff (Auto) Neut % (Auto) Lymph % (Auto) Rankin % (Auto) Eos % (Auto) Baso % (Auto) Neut # (Auto) Lymph # (Auto) Rankin # (Auto) Eos # (Auto) Baso # (Auto) WBC Differential Diff Scan Differential Comment Sodium Potassium Chloride Carbon Dioxide Anion Gap BUN Creatinine Estimated GFR POC Glucose 230 H 244 H Random Glucose Calcium Calcium Adj for Albumin Magnesium Albumin Blood Type A Negative Antibody Screen Negative MTS Gel Crossmatch See Detail 05/30/18 05/31/18 05/31/18 22:45 04:40 04:40 WBC 8.5 RBC 2.13 L Hgb 7.1 L Hct 20.2 L* MCV 94.8 MCH 33.2 MCHC 35.1 RDW 15.0 Plt Count 158 MPV 7.5 Prelim Diff (Auto) Slide review pending Neut % (Auto) 76.8 H Lymph % (Auto) 9.6 Rankin % (Auto) 10.3 H Eos % (Auto) 2.9 Baso % (Auto) 0.4 Neut # (Auto) 6.6 Lymph # (Auto) 0.8 L Rankin # (Auto) 0.9 Eos # (Auto) 0.2 Baso # (Auto) 0.0 WBC Differential . Diff Scan Auto diff confirmed Differential Comment . Sodium 134 L Potassium 5.3 H Chloride 97 L Carbon Dioxide 26.8 Anion Gap 10 BUN 70 H Creatinine 8.33 H Estimated GFR 6 L POC Glucose 213 H Random Glucose 153 H Calcium 7.1 L* Calcium Adj for Albumin 8.5 Magnesium 2.4 Albumin 2.2 L Blood Type Antibody Screen MTS Gel Crossmatch 05/31/18 05/31/18 07:44 09:56 WBC RBC Hgb Hct MCV MCH MCHC RDW Plt Count MPV Prelim Diff (Auto) Neut % (Auto) Lymph % (Auto) Rankin % (Auto) Eos % (Auto) Baso % (Auto) Neut # (Auto) Lymph # (Auto) Rankin # (Auto) Eos # (Auto) Baso # (Auto) WBC Differential Diff Scan Differential Comment Sodium Potassium Chloride Carbon Dioxide Anion Gap BUN Creatinine Estimated GFR POC Glucose 212 H Random Glucose Calcium Calcium Adj for Albumin Magnesium Albumin Blood Type Antibody Screen MTS Gel Crossmatch See Detail Microbiology 05/29/18 09:21 Gram Stain - Final Tissue - Toe Wound Culture - Preliminary S. aureus MRSA Enterobacter cloacae Streptococcus species 05/29/18 09:30 Gram Stain - Final Wound - Toe Wound Culture - Preliminary S. aureus MRSA Enterobacter cloacae Streptococcus species 05/29/18 09:12 Gram Stain - Final Wound - Toe Wound Culture - Preliminary S. aureus MRSA Enterobacter cloacae Streptococcus species 05/29/18 08:59 Gram Stain - Final Wound - Foot Wound Culture - Final S. aureus MRSA 05/29/18 09:03 Gram Stain - Final Tissue - Toe Wound Culture - Final S. aureus MRSA 05/29/18 10:30 Gram Stain - Final Wound - Arm Wound Culture - Final S. aureus MRSA 05/29/18 10:30 Gram Stain - Final Wound - Arm Wound Culture - Final S. aureus MRSA 05/29/18 09:21 Acid Fast Bacilli Smear - Final Tissue - Toe No acid fast bacilli seen 05/29/18 09:30 Acid Fast Bacilli Smear - Final Other No acid fast bacilli seen 05/29/18 09:12 Acid Fast Bacilli Smear - Final Wound - Toe No acid fast bacilli seen 05/29/18 09:03 Acid Fast Bacilli Smear - Final Tissue - Toe No acid fast bacilli seen 05/29/18 08:59 Acid Fast Bacilli Smear - Final Wound - Foot No acid fast bacilli seen 05/29/18 10:30 Acid Fast Bacilli Smear - Final Wound - Arm No acid fast bacilli seen 05/29/18 10:30 Acid Fast Bacilli Smear - Final Wound - Arm No acid fast bacilli seen Impressions Foot X-Ray 05/29/18 00:00 CONCLUSION: Status post removal of much of the remaining portions of the second and third proximal phalanges with small bony fragments still seen over these regions. Assessment and Plan - Assessment (1) Fever Code(s): R50.9 - Fever, unspecified Status: Acute - Plan 63 yo male with fever and now bacteremia Status post left BKA postop day #3, explantation of the left AV graft postop day 2 Hemoglobin is 7, transfuse 1 PRBC Continue with local wound care Will observe right to the wounds, if poor healing I will do right lower extremity angiogram Casper Reynosocoub MS [phone] (1) Fever Qualifiers: Fever type: unspecified Qualified Code(s): R50.9 - Fever, unspecified
--- NOTE | 2018-05-31 11:24 | P.PN ---
Subjective Interval history: Follow-up anemia. Hemoglobin up to 7.1 after 2 units of packed RBC. No gross bleeding. Discussed with vascular surgery, anemia secondary to surgical blood loss. Discussed with RN, Aristeo musa. Physical Exam Vital signs: Vital Signs 05/30/18 12:00 05/30/18 13:00 05/30/18 13:16 Temperature 99 F 99 F 99 F Pulse Rate 79 79 76 Respiratory Rate 18 18 18 Blood Pressure 132/59 L 132/59 L 131/59 L Pulse Oximetry 98 98 97 05/30/18 13:17 05/30/18 16:00 05/30/18 16:29 Temperature 98.4 F 98.3 F Pulse Rate 77 68 67 Respiratory Rate 17 18 17 Blood Pressure 141/63 H 134/63 115/54 L Pulse Oximetry 97 99 05/30/18 16:54 05/30/18 17:35 05/30/18 20:00 Temperature 98.7 F 98.8 F 98.6 F Pulse Rate 68 70 65 Respiratory Rate 18 17 16 Blood Pressure 118/58 L 117/58 L 146/65 H Pulse Oximetry 100 100 97 05/31/18 00:00 05/31/18 08:00 05/31/18 10:22 Temperature 99.1 F 99.0 F 99.1 F Pulse Rate 66 62 73 Respiratory Rate 16 18 20 Blood Pressure 164/66 H 183/74 H 135/70 Pulse Oximetry 98 98 05/31/18 10:42 Temperature 99.1 F Pulse Rate 69 Respiratory Rate 20 Blood Pressure 139/71 Pulse Oximetry Intake & Output 05/30/18 05/31/18 05/31/18 18:59 06:59 18:59 Intake Total 400 / 400 400 / 400 Output Total 210 / 210 Balance 190 / 190 390 / 390 Weight 132.1 kg Intake: Other Rbc As-3 Leukoreduced Unit [id number] Intake (Blood Product) Amt 0 / 0 400 / 400 400 / 400 Rbc As-3 Leukoreduced Unit 0 / 0 400 / 400 [id number] Rbc As-3 Leukoreduced Unit 400 / 400 [id number] Rbc As-3 Leukoreduced Unit 0 / 0 [id number] Output: Urine 200 / 200 Wound Drainage # 1 Left Anterior Arm Bartolo Other: # Voids 3 Narrative: GENERAL: Awake and alert. NAD SKIN: Warm and dry. CARDIOVASCULAR: Regular rate and rhythm without murmurs, gallops, or rubs. RESPIRATORY: Breath sounds equal bilaterally. No accessory muscle use. GASTROINTESTINAL: Abdomen soft, non-tender, nondistended. MUSCULOSKELETAL: No cyanosis, or edema. Right lower extremity with MARIBETH. Left upper arm with MARIBETH wrap and STEVEN drain. Left lower extremity BKA, MARIBETH on. BACK: Nontender without obvious deformity. No CVA tenderness. Results - Labs CBC & Chem 7: 05/31/18 04:40 05/31/18 04:40 Laboratory Results - last 24 hr 05/30/18 05/30/18 05/30/18 10:05 12:07 16:50 WBC RBC Hgb Hct MCV MCH MCHC RDW Plt Count MPV Prelim Diff (Auto) Neut % (Auto) Lymph % (Auto) [place] % (Auto) Eos % (Auto) Baso % (Auto) Neut # (Auto) Lymph # (Auto) [place] # (Auto) Eos # (Auto) Baso # (Auto) WBC Differential Diff Scan Differential Comment Sodium Potassium Chloride Carbon Dioxide Anion Gap BUN Creatinine Estimated GFR POC Glucose 230 H 244 H Random Glucose Calcium Calcium Adj for Albumin Magnesium Albumin Blood Type A Negative Antibody Screen Negative MTS Gel Crossmatch See Detail 05/30/18 05/31/18 05/31/18 22:45 04:40 04:40 WBC 8.5 RBC 2.13 L Hgb 7.1 L Hct 20.2 L* MCV 94.8 MCH 33.2 MCHC 35.1 RDW 15.0 Plt Count 158 MPV 7.5 Prelim Diff (Auto) Slide review pending Neut % (Auto) 76.8 H Lymph % (Auto) 9.6 [place] % (Auto) 10.3 H Eos % (Auto) 2.9 Baso % (Auto) 0.4 Neut # (Auto) 6.6 Lymph # (Auto) 0.8 L [place] # (Auto) 0.9 Eos # (Auto) 0.2 Baso # (Auto) 0.0 WBC Differential . Diff Scan Auto diff confirmed Differential Comment . Sodium 134 L Potassium 5.3 H Chloride 97 L Carbon Dioxide 26.8 Anion Gap 10 BUN 70 H Creatinine 8.33 H Estimated GFR 6 L POC Glucose 213 H Random Glucose 153 H Calcium 7.1 L* Calcium Adj for Albumin 8.5 Magnesium 2.4 Albumin 2.2 L Blood Type Antibody Screen MTS Gel Crossmatch 05/31/18 05/31/18 07:44 09:56 WBC RBC Hgb Hct MCV MCH MCHC RDW Plt Count MPV Prelim Diff (Auto) Neut % (Auto) Lymph % (Auto) [place] % (Auto) Eos % (Auto) Baso % (Auto) Neut # (Auto) Lymph # (Auto) [place] # (Auto) Eos # (Auto) Baso # (Auto) WBC Differential Diff Scan Differential Comment Sodium Potassium Chloride Carbon Dioxide Anion Gap BUN Creatinine Estimated GFR POC Glucose 212 H Random Glucose Calcium Calcium Adj for Albumin Magnesium Albumin Blood Type Antibody Screen MTS Gel Crossmatch See Detail Microbiology 05/29/18 09:21 Tissue - Toe Gram Stain - Final 05/29/18 09:21 Tissue - Toe Wound Culture - Preliminary S. aureus MRSA Enterobacter cloacae Streptococcus species 05/29/18 09:30 Wound - Toe Gram Stain - Final 05/29/18 09:30 Wound - Toe Wound Culture - Preliminary S. aureus MRSA Enterobacter cloacae Streptococcus species 05/29/18 09:12 Wound - Toe Gram Stain - Final 05/29/18 09:12 Wound - Toe Wound Culture - Preliminary S. aureus MRSA Enterobacter cloacae Streptococcus species 05/29/18 08:59 Wound - Foot Gram Stain - Final 05/29/18 08:59 Wound - Foot Wound Culture - Final S. aureus MRSA 05/29/18 09:03 Tissue - Toe Gram Stain - Final 05/29/18 09:03 Tissue - Toe Wound Culture - Final S. aureus MRSA 05/29/18 10:30 Wound - Arm Gram Stain - Final 05/29/18 10:30 Wound - Arm Wound Culture - Final S. aureus MRSA 05/29/18 10:30 Wound - Arm Gram Stain - Final 05/29/18 10:30 Wound - Arm Wound Culture - Final S. aureus MRSA 05/29/18 09:21 Tissue - Toe Acid Fast Bacilli Smear - Final No acid fast bacilli seen 05/29/18 09:30 Other Acid Fast Bacilli Smear - Final No acid fast bacilli seen 05/29/18 09:12 Wound - Toe Acid Fast Bacilli Smear - Final No acid fast bacilli seen 05/29/18 09:03 Tissue - Toe Acid Fast Bacilli Smear - Final No acid fast bacilli seen 05/29/18 08:59 Wound - Foot Acid Fast Bacilli Smear - Final No acid fast bacilli seen 05/29/18 10:30 Wound - Arm Acid Fast Bacilli Smear - Final No acid fast bacilli seen 05/29/18 10:30 Wound - Arm Acid Fast Bacilli Smear - Final No acid fast bacilli seen - Imaging ITS Impressions Chest CTA 05/21/18 00:00 CONCLUSION: 1. No evidence of pulmonary embolism. 2. Minimal scattered ground-glass densities are noted consistent with minimal pulmonary vascular congestion versus atelectatic changes. 3. Coronary artery calcifications. 4. Tiny bilateral pleural effusions. 5. Splenomegaly. 6. Pneumobilia. 7. 13 mm right thyroid lobe nodule. 8. Degenerative changes throughout the thoracic spine. Chest X-Ray 05/21/18 00:28 CONCLUSION: Small lung volumes with an elevated right hemidiaphragm. Right subclavian bipolar pacer Extremity Arterial Study 05/22/18 00:00 CONCLUSION: 1. There is significant decrease in the ankle-brachial index on the right suggesting severe peripheral vascular disease. The left ankle-brachial index could not be obtained, but the toe brachial index on the left is significantly decreased suggesting severe peripheral vascular disease on the left also. Head CT 05/22/18 00:00 CONCLUSION: 1. Negative CT Head non contrast. . Lower Extremity Ultrasound 05/22/18 00:00 CONCLUSION: 1. Saphenous vein mapping/measurements as described above. Aorta w/Runoff CTA 05/23/18 00:00 CONCLUSION: 1. Patent inflow and outflow bilaterally. 2. Heavily calcified trifurcation vessels limits their patency evaluation. On the right there is possible straight-line flow through the anterior tibial artery and peroneal artery. The posterior tibial artery is clearly occluded. On the left there is a similar appearance. 3. Atrophic kidneys. 4. Splenomegaly. Upper Extremity Ultrasound 05/23/18 00:00 CONCLUSION: 1. Venous mapping as detailed above. Venous Doppler Study 05/23/18 00:00 CONCLUSION: No evidence of deep venous thrombosis. Catheter Placement 05/28/18 00:00 CONCLUSION: 1. 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 2. Uncomplicated line placement as above. Foot CT 05/28/18 00:00 CONCLUSION: 1. Status post transmetatarsal amputation of the fourth and fifth digits. 2. Status post transphalangeal amputation of the first, second and third digits. 3. Punctate subcutaneous focus of air overlying the dorsal second digit amputation stump with very subtle potential erosive change at the amputation site. 4. Mild diffuse soft tissue swelling overlying the forefoot amputation stump. Foot X-Ray 05/29/18 00:00 CONCLUSION: Status post removal of much of the remaining portions of the second and third proximal phalanges with small bony fragments still seen over these regions. - Procedures Left BKA Vascath AVG explantation s/p revision 05/29/18 of R 2nd and 3rd digit stumps Angiogram Assessment and Plan - Assessment (1) Chest pain Code(s): R07.9 - Chest pain, unspecified Status: Acute (2) ESRD (end stage renal disease) on dialysis Code(s): N18.6 - End stage renal disease; Z99.2 - Dependence on renal dialysis Status: Acute (3) DM (diabetes mellitus) Code(s): E11.9 - Type 2 diabetes mellitus without complications Status: Chronic - Plan -MRSA SEPSIS - source is possible LUE AVG infection and or multiple diabetic foot wounds with osteomyelitis cont abx vancomycin for 2 weeks w dialysis til 06/04, s/p avg explantation and amputations, cont abx per ID rec, await cxs especially from lower extremity so far growing MRSA and gram-negative anali. -AVF infection/ pseudoaneurysm, malfunction, s/p vas cath placement by IR and graft explantation by vascular -OSTEOMYELITIS LEFT FOOT s/p L BKA 05/27/18 - cont wound care and pt, iv abx per ID. -R FOOT NONHEALING TOE STUMP WOUNDs w EXPOSED BONE - s/p revision 05/29/18 of R 2nd and 3rd digit stumps in OR per podiatry. -ESRD on dialysis chronic cont as per nephrology, infected avg management as above -PVD s/p angiogram 05/24/18 w both R and L Posterior tibial artery occlusion and severe microvascular dz of both L and R feet, will require followup angiogram of RLE and possible limb salvage after recovery per vascular surgery, cont statin, aspirin and Brilinta -DM II insulin dependent with diabetic peripheral neuropathy, nephropathy. Hyperglycemic restart Lantus at a lower dose -HTN cont norvasc -DYSLIPIDEMIA cont statin -ATYPICAL CP w no acs, non cardiac trop elevation, cardiology following -ACUTE METABOLIC ENCEPHALOPATHY - resolving -SEIZURE DO - stable on home meds -THROMBOCYTOPENIA - improving -OBESITY BMI 37 - diet activity when stable -ANEMIA w drop in HH , prob has chronic anemia due to ckd, will monitor, transfuse prn keep hemoglobin at least 8, epo per nephrology. Transfuse another packed RBC today. Hemoccult stools DVT PROPHYLAXIS - scd. Chemical prophylaxis if negative guaiac DISPO - planning for rehab, [facility] would [facility]charge Planning: Consult case management (1) Chest pain Qualifiers: Chest pain type: other chest pain Qualified Code(s): R07.89 - Other chest pain; R07.8 - Other chest pain
[2018-05-31] MEDS: Vancomycin Inj 1,000 MG in Sodium Chlor 0.9% Inj 250 ML IV.SIG SCH (11:25)
--- NOTE | 2018-05-31 14:12 | P.PNID ---
Subjective Remarks: Patient is a 63-year-old male, brought into the hospital complaining of chest pain. Patient has known coronary artery disease. He had prior stenting of his coronaries I believe back in August of this year. In February he was readmitted and had an VT, and at that time he had bradycardia and he underwent placement of a pacemaker. Patient on this admission started having fevers and he was encephalopathic. There was some notation that he had some redness on his left upper extremity where he has his AV graft. Patient stated he had the AV graft put in about 6 months ago and the dialysis unit started using it about 4 months ago. Patient was also noted to have multiple wounds in the right foot as well as in the left foot. He stated he was hospitalized at [facility] last April and had surgery on his toes. He could not really tell me which of the toes he had surgery on. I spoke with microbiology in [facility], and there was a toe culture that grew Morganella morganii acne. It was resistant to ampicillin, Unasyn, cefazolin, and intermediate to gentamicin. Patient was apparently given some oral antibiotic but he could not remember what it was. He was last seen by his shock absorption floor layer about a week ago and as far as he knows there was no problem with it. Patient states that he ambulates without any problem at home. Blood cultures done on this admission is now reported as growing possible MRSA. He had imaging study of the AV graft and there is a small fluid close to the AV graft. Patient currently is awake and alert and oriented. He is not short of breath, and currently no chest pain. Patient states he has neuropathy and does not really feel any pain in both feet. Infectious disease consultation has been requested to assist with evaluation and treatment of patient with positive blood culture. Notes reviewed Just had HD C/O pain BLE Temps ok S/P LBKA Had surgery on his R foot 05/29 Had surgery on his AVG 05/29 C/S from R foot MRSA, Enterobacter, Strep Path pending C/S from AVG MRSA BC with MRSA Repeat BC negative so far Got Vanco dose today Antibiotics: Vancomycin Lines: MARION jennings Past Medical History: Neuropathy (Acute) AV fistula (Chronic) Coronary artery disease Diabetes End stage renal disease History of amputation of great toe of both feet Seizure Knee joint replacement status (Acute) History of cholecystectomy Allergies/Adverse Reactions: Allergies *MDRO Multi-Drug Resistant Organism Adverse Reaction (Intermediate, Uncoded 00:22) Abdominal Pain 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 Objective Vital Signs 05/30/18 16:00 05/30/18 16:29 05/30/18 16:54 Temperature 98.3 F 98.7 F Pulse Rate 68 67 68 Respiratory Rate 18 17 18 Blood Pressure 134/63 115/54 L 118/58 L Pulse Oximetry 97 99 100 05/30/18 17:35 05/30/18 20:00 05/31/18 00:00 Temperature 98.8 F 98.6 F 99.1 F Pulse Rate 70 65 66 Respiratory Rate 17 16 16 Blood Pressure 117/58 L 146/65 H 164/66 H Pulse Oximetry 100 97 98 05/31/18 08:00 05/31/18 10:22 05/31/18 10:42 Temperature 99.0 F 99.1 F 99.1 F Pulse Rate 62 73 69 Respiratory Rate 18 20 20 Blood Pressure 183/74 H 135/70 139/71 Pulse Oximetry 98 05/31/18 13:26 Temperature Pulse Rate Respiratory Rate Blood Pressure Pulse Oximetry 95 Intake & Output 05/30/18 05/31/18 05/31/18 18:59 06:59 18:59 Intake Total 400 / 400 650 / 650 Output Total 210 / 210 3310 / 3310 Balance 190 / 190 -2660 / -2660 Weight 132.1 kg Intake: IV 250 / 250 Vancomycin Inj 1,000 MG In NS 250 / 250 Inj 250 ML @ 250 mls/hr IV.SIG WITH DIAL[facility] Rx#:[id number] Other Rbc As-3 Leukoreduced Unit [id number] Intake (Blood Product) Amt 0 / 0 400 / 400 400 / 400 Rbc As-3 Leukoreduced Unit 0 / 0 400 / 400 [id number] Rbc As-3 Leukoreduced Unit 400 / 400 [id number] Rbc As-3 Leukoreduced Unit 0 / 0 [id number] Output: Urine 200 / 200 Hemodialysis Amount 3300 / 3300 Wound Drainage # 1 Left Anterior Arm Bartolo Other: # Voids 3 Date of Last Bowel Movement 05/24/18 05/29/18 09:21 Tissue - Toe Gram Stain - Final 05/29/18 09:21 Tissue - Toe Wound Culture - Preliminary S. aureus MRSA Enterobacter cloacae Streptococcus species 05/29/18 09:30 Wound - Toe Gram Stain - Final 05/29/18 09:30 Wound - Toe Wound Culture - Preliminary S. aureus MRSA Enterobacter cloacae Streptococcus species 05/29/18 09:12 Wound - Toe Gram Stain - Final 05/29/18 09:12 Wound - Toe Wound Culture - Preliminary S. aureus MRSA Enterobacter cloacae Streptococcus species 05/29/18 08:59 Wound - Foot Gram Stain - Final 05/29/18 08:59 Wound - Foot Wound Culture - Final S. aureus MRSA 05/29/18 09:03 Tissue - Toe Gram Stain - Final 05/29/18 09:03 Tissue - Toe Wound Culture - Final S. aureus MRSA 05/29/18 10:30 Wound - Arm Gram Stain - Final 05/29/18 10:30 Wound - Arm Wound Culture - Final S. aureus MRSA 05/29/18 10:30 Wound - Arm Gram Stain - Final 05/29/18 10:30 Wound - Arm Wound Culture - Final S. aureus MRSA 05/29/18 09:21 Tissue - Toe Acid Fast Bacilli Smear - Final No acid fast bacilli seen 05/29/18 09:21 Tissue - Toe Mycobacterial Culture - Pending 05/29/18 09:30 Other Acid Fast Bacilli Smear - Final No acid fast bacilli seen 05/29/18 09:30 Other Mycobacterial Culture - Pending 05/29/18 09:12 Wound - Toe Acid Fast Bacilli Smear - Final No acid fast bacilli seen 05/29/18 09:12 Wound - Toe Mycobacterial Culture - Pending 05/29/18 09:03 Tissue - Toe Acid Fast Bacilli Smear - Final No acid fast bacilli seen 05/29/18 09:03 Tissue - Toe Mycobacterial Culture - Pending 05/29/18 08:59 Wound - Foot Acid Fast Bacilli Smear - Final No acid fast bacilli seen 05/29/18 08:59 Wound - Foot Mycobacterial Culture - Pending 05/29/18 10:30 Wound - Arm Acid Fast Bacilli Smear - Final No acid fast bacilli seen 05/29/18 10:30 Wound - Arm Mycobacterial Culture - Pending 05/29/18 10:30 Wound - Arm Acid Fast Bacilli Smear - Final No acid fast bacilli seen 05/29/18 10:30 Wound - Arm Mycobacterial Culture - Pending 05/29/18 09:12 Wound - Toe Fungal Smear - Pending 05/29/18 09:12 Wound - Toe Fungal Culture - Pending 05/29/18 09:03 Wound - Toe Fungal Smear - Pending 05/29/18 09:03 Wound - Toe Fungal Culture - Pending 05/29/18 08:59 Wound - Foot Fungal Smear - Pending 05/29/18 08:59 Wound - Foot Fungal Culture - Pending 05/29/18 09:21 Tissue - Toe Fungal Smear - Pending 05/29/18 09:21 Tissue - Toe Fungal Culture - Pending 05/29/18 09:30 Other Fungal Smear - Pending 05/29/18 09:30 Other Fungal Culture - Pending 05/29/18 10:30 Wound - Arm Fungal Smear - Pending 05/29/18 10:30 Wound - Arm Fungal Culture - Pending 05/29/18 10:30 Wound - Arm Fungal Smear - Pending 05/29/18 10:30 Wound - Arm Fungal Culture - Pending Lab - Hematology Results 05/29/18 05/30/18 05/31/18 17:48 07:09 04:40 WBC 10.8 7.2 8.5 RBC 2.08 L 1.80 L 2.13 L Hgb 7.3 L 6.0 L* 7.1 L Hct 20.1 L* 17.3 L* 20.2 L* MCV 96.8 96.5 94.8 MCH 35.1 H 33.2 33.2 MCHC 36.3 H 34.4 35.1 RDW 15.3 15.4 15.0 Plt Count 175 D 151 158 MPV 7.5 7.4 7.5 Prelim Diff (Auto) Slide review pending [employer] Slide review pending Neut % (Auto) 80.6 H 75.8 H 76.8 H Lymph % (Auto) 7.1 L 9.6 9.6 [place] % (Auto) 10.8 H 11.6 H 10.3 H Eos % (Auto) 1.2 2.7 2.9 Baso % (Auto) 0.3 0.3 0.4 Neut # (Auto) 8.7 H 5.5 6.6 Lymph # (Auto) 0.8 L 0.7 L 0.8 L [place] # (Auto) 1.2 H 0.8 0.9 Eos # (Auto) 0.1 0.2 0.2 Baso # (Auto) 0.0 0.0 0.0 WBC Differential . . . Diff Scan Auto diff confirmed Auto diff confirmed Differential Comment . Auto diff final . Lab - Chemistry Results 05/29/18 05/29/18 05/29/18 16:30 20:13 23:42 Sodium Potassium Chloride Carbon Dioxide Anion Gap BUN Creatinine Estimated GFR POC Glucose 219 H 266 H 245 H Random Glucose Calcium Prot Corrected Calcium Calcium Adj for Albumin Magnesium Iron TIBC % Saturation Ferritin Total Bilirubin AST ALT Alkaline Phosphatase Total Protein Albumin 05/30/18 05/30/18 05/30/18 07:09 07:09 08:22 Sodium 133 L Potassium 5.2 H Chloride 96 L Carbon Dioxide 28.0 Anion Gap 9 BUN 61 H Creatinine 7.72 H Estimated GFR 7 L POC Glucose 227 H Random Glucose 185 H Calcium 7.2 L* Prot Corrected Calcium 7.6 L Calcium Adj for Albumin Magnesium 2.4 Iron 23 L TIBC 172 L % Saturation 13.4 L Ferritin 387 Total Bilirubin 0.6 AST 76 H ALT 14 Alkaline Phosphatase 123 H Total Protein 6.4 Albumin 2.3 L 05/30/18 05/30/18 05/30/18 12:07 16:50 22:45 Sodium Potassium Chloride Carbon Dioxide Anion Gap BUN Creatinine Estimated GFR POC Glucose 230 H 244 H 213 H Random Glucose Calcium Prot Corrected Calcium Calcium Adj for Albumin Magnesium Iron TIBC % Saturation Ferritin Total Bilirubin AST ALT Alkaline Phosphatase Total Protein Albumin 05/31/18 05/31/18 05/31/18 04:40 07:44 12:15 Sodium 134 L Potassium 5.3 H Chloride 97 L Carbon Dioxide 26.8 Anion Gap 10 BUN 70 H Creatinine 8.33 H Estimated GFR 6 L POC Glucose 212 H 130 H Random Glucose 153 H Calcium 7.1 L* Prot Corrected Calcium Calcium Adj for Albumin 8.5 Magnesium 2.4 Iron TIBC % Saturation Ferritin Total Bilirubin AST ALT Alkaline Phosphatase Total Protein Albumin 2.2 L Imaging: ITS Impressions Chest CTA 05/21/18 00:00 CONCLUSION: 1. No evidence of pulmonary embolism. 2. Minimal scattered ground-glass densities are noted consistent with minimal pulmonary vascular congestion versus atelectatic changes. 3. Coronary artery calcifications. 4. Tiny bilateral pleural effusions. 5. Splenomegaly. 6. Pneumobilia. 7. 13 mm right thyroid lobe nodule. 8. Degenerative changes throughout the thoracic spine. Chest X-Ray 05/21/18 00:28 CONCLUSION: Small lung volumes with an elevated right hemidiaphragm. Right subclavian bipolar pacer Extremity Arterial Study 05/22/18 00:00 CONCLUSION: 1. There is significant decrease in the ankle-brachial index on the right suggesting severe peripheral vascular disease. The left ankle-brachial index could not be obtained, but the toe brachial index on the left is significantly decreased suggesting severe peripheral vascular disease on the left also. Head CT 05/22/18 00:00 CONCLUSION: 1. Negative CT Head non contrast. . Lower Extremity Ultrasound 05/22/18 00:00 CONCLUSION: 1. Saphenous vein mapping/measurements as described above. Aorta w/Runoff CTA 05/23/18 00:00 CONCLUSION: 1. Patent inflow and outflow bilaterally. 2. Heavily calcified trifurcation vessels limits their patency evaluation. On the right there is possible straight-line flow through the anterior tibial artery and peroneal artery. The posterior tibial artery is clearly occluded. On the left there is a similar appearance. 3. Atrophic kidneys. 4. Splenomegaly. Upper Extremity Ultrasound 05/23/18 00:00 CONCLUSION: 1. Venous mapping as detailed above. Venous Doppler Study 05/23/18 00:00 CONCLUSION: No evidence of deep venous thrombosis. Catheter Placement 05/28/18 00:00 CONCLUSION: 1. 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 2. Uncomplicated line placement as above. Foot CT 05/28/18 00:00 CONCLUSION: 1. Status post transmetatarsal amputation of the fourth and fifth digits. 2. Status post transphalangeal amputation of the first, second and third digits. 3. Punctate subcutaneous focus of air overlying the dorsal second digit amputation stump with very subtle potential erosive change at the amputation site. 4. Mild diffuse soft tissue swelling overlying the forefoot amputation stump. Foot X-Ray 05/29/18 00:00 CONCLUSION: Status post removal of much of the remaining portions of the second and third proximal phalanges with small bony fragments still seen over these regions. Physical Exam: GENERAL: awake and alert, not in respiratory distress. SKIN: Cool and dry. No generalized rash EYES: [place] conjunctiva. No petechia or hemorrhage. No scleral icterus. No injection or drainage. EARS, NOSE AND THROAT: Mucous membranes pink and moist. No oral lesions noted. No exudate. No oral thrush. NECK: Trachea midline. Supple and not tender, no meningeal signs CARDIOVASCULAR: Regular rate and rhythm. No murmurs, rubs or gallops heard. Pacer in R upper chest has well healed incision, not red, not swollen, not tender RESPIRATORY: Clear to auscultation. Breath sounds equal bilaterally. No rales , wheezing or rhonchi ABDOMEN: Soft, globular, non-tender, nondistended. Bowel sounds present and normoactive. No guarding. No rebound. EXTREMITIES: No clubbing, cyanosis. Intact dressing to both LE. Intact dressing to his LUE, has STEVEN drain in place NEUROLOGICAL: Non-focal PSYCHIATRIC: Normal affect, calm and cooperative. LINE: No evidence of infection Assessment and Plan - Plan Impression MRSA sepsis, source? Infected AVG, S/P surgery 05/29 Multiple ulcers toes R foot, S/P surgery 05/29 ESRD on HD Encephalopathy due to sepsis, better PVD, BLE Recommendation Continue IV vancomycin Follow all new C/S Add Levaquin Will need longer course of Abx Follow temps Monitor progress
[2018-05-31] MEDS: levoFLOXacin 250 MG Tablet PO SCH (15:28)
--- NOTE | 2018-05-31 16:22 | OTSOAPIP ---
TIME SESSION COMPLETED: AM/PM TREATMENT TIME: 0 MINS. CHART REVIEWED. INTERDISCIPLINARY COMMUNICATION: PATIENT WAS NOT AVAILABLE DUE TO BEING OFF THE UNIT FOR DIALYSIS. PLAN: WILL SEE PATIENT NEXT TREATMENT DAY. Therapist: Harpreet Rogers Signature on file
[2018-05-31] MEDS: Morphine Sulfate Inj 2 MG/ML Vial IV.PUSH PRN (16:28)
--- NOTE | 2018-05-31 16:41 | P.PNNP ---
Subjective Interval history: Awake and alert, mother at bedside. Hemodialysis done today. HGB improved but continues to be low at 7.1 <Christa Velasquez - Last Filed: 05/31/18 16:31> Physical Exam Vital signs: Vital Signs 05/30/18 16:54 05/30/18 17:35 05/30/18 20:00 Temperature 98.7 F 98.8 F 98.6 F Pulse Rate 68 70 65 Respiratory Rate 18 17 16 Blood Pressure 118/58 L 117/58 L 146/65 H Pulse Oximetry 100 100 97 05/31/18 00:00 05/31/18 08:00 05/31/18 10:22 Temperature 99.1 F 99.0 F 99.1 F Pulse Rate 66 62 73 Respiratory Rate 16 18 20 Blood Pressure 164/66 H 183/74 H 135/70 Pulse Oximetry 98 98 05/31/18 10:42 05/31/18 13:26 Temperature 99.1 F Pulse Rate 69 Respiratory Rate 20 Blood Pressure 139/71 Pulse Oximetry 95 Intake & Output 05/30/18 05/31/18 05/31/18 18:59 06:59 18:59 Intake Total 400 / 400 650 / 650 Output Total 210 / 210 3310 / 3310 Balance 190 / 190 -2660 / -2660 Weight 132.1 kg Intake: IV 250 / 250 Vancomycin Inj 1,000 MG In NS 250 / 250 Inj 250 ML @ 250 mls/hr IV.SIG WITH DIALYSIS [facility] Rx#:[id number] Other Rbc As-3 Leukoreduced Unit [id number] Intake (Blood Product) Amt 0 / 0 400 / 400 400 / 400 Rbc As-3 Leukoreduced Unit 0 / 0 400 / 400 [id number] Rbc As-3 Leukoreduced Unit 400 / 400 [id number] Rbc As-3 Leukoreduced Unit 0 / 0 [id number] Output: Urine 200 / 200 Hemodialysis Amount 3300 / 3300 Wound Drainage # 1 Left Anterior Arm Bartolo Other: # Voids 3 Date of Last Bowel Movement 05/24/18 Narrative: GENERAL: Awake and alert. NAD SKIN: Warm and dry. CARDIOVASCULAR: Regular rate and rhythm without murmurs, gallops, or rubs. RESPIRATORY: Breath sounds equal bilaterally. No accessory muscle use. GASTROINTESTINAL: Abdomen soft, non-tender, nondistended. MUSCULOSKELETAL: No cyanosis, or edema. Right lower extremity with MARIBETH. Left upper arm with MARIBETH wrap and STEVEN drain. Left lower extremity BKA, MARIBETH on. BACK: Nontender without obvious deformity. No CVA tenderness. <Christa Velasquez - Last Filed: 05/31/18 16:31> Vital signs: Vital Signs 06/05/18 00:00 06/05/18 08:00 06/05/18 11:00 Temperature 98.0 F 98.0 F Pulse Rate 61 60 Respiratory Rate 17 16 16 Blood Pressure 122/58 L 122/59 L Pulse Oximetry 96 98 06/05/18 15:55 06/05/18 16:00 Temperature 98.1 F Pulse Rate 65 Respiratory Rate 16 16 Blood Pressure 87/43 L Pulse Oximetry 96 Intake & Output 06/05/18 06/05/18 06/06/18 06:59 18:59 06:59 Intake Total 1450 / 1450 Output Total 250 / 250 1999 Balance -250 / -250 -550 / -550 Weight 125.9 kg Intake: IV 250 / 250 Vancomycin Inj 1,000 MG In NS 250 / 250 Inj 250 ML @ 250 mls/hr IV.SIG WITH DIALYSIS SKIP Rx#:[id number] Oral 1200 / 1200 Output: Urine 250 / 250 Hemodialysis Amount 1999 Other: # Voids 4 Date of Last Bowel Movement 06/03/18 # Bowel Movements 1 <Moni Alvarado - Last Filed: 06/05/18 21:17> Assessment and Plan - Assessment (1) ESRD (end stage renal disease) on dialysis Code(s): N18.6 - End stage renal disease; Z99.2 - Dependence on renal dialysis Status: Acute Plan: Patient with end stage renal disease on HD TTS. Epogen with dialysis. Vas cath in left IJ MRSA in graft, Excision of AVG, STEVEN drain present. HD today with UF 3.[address] consult for interventional for permacath placement. (2) DM (diabetes mellitus) Code(s): E11.9 - Type 2 diabetes mellitus without complications Status: Chronic Plan: Recommend to maintain blood sugars between 140 mg/dl to 180 mg/dl while hospitalized. (3) Anemia Code(s): D64.9 - Anemia, unspecified Status: Acute Plan: Epogen ordered with dialysis. HGB stable at 7.1 Stool for hemocult pending. (4) Sepsis Code(s): A41.9 - Sepsis, unspecified organism Status: Acute Plan: Blood cultures positive for MRSA. Has MRSA Bacteremia, source ? AVG removed; Antibiotics per ID recommendations, renal dose as appropriate (5) Osteomyelitis of left foot Code(s): M86.9 - Osteomyelitis, unspecified Status: Acute Plan: PVD with osteomyelitis Left BKA on . <Christa Velasquez - Last Filed: 05/31/18 16:31> - Assessment (1) ESRD (end stage renal disease) on dialysis Code(s): N18.6 - End stage renal disease; Z99.2 - Dependence on renal dialysis Status: Acute Plan: Patient seen and examined, agree with above. Patient with sepsis, and post AVG excision. Will need a PermCath. (2) DM (diabetes mellitus) Code(s): E11.9 - Type 2 diabetes mellitus without complications Status: Chronic (3) Anemia Code(s): D64.9 - Anemia, unspecified Status: Acute (4) Sepsis Code(s): A41.9 - Sepsis, unspecified organism Status: Acute (5) Osteomyelitis of left foot Code(s): M86.9 - Osteomyelitis, unspecified Status: Acute <Moni Alvarado - Last Filed: 06/05/18 21:17>
[2018-06-01] MEDS: Morphine Sulfate Inj 2 MG/ML Vial IV.PUSH PRN ×4 (06:05→22:28)
[2018-06-01 06:25] LABS: Baso % (Auto) 0.5 % (0.0-2.0); Eos # (Auto) 0.2 th/mm3 (0.0-0.4); Eos % (Auto) 3.2 % (0.0-4.0); Hematocrit 25.9 % (39.0-51.0); Hemoglobin 8.8 gm/dL (13.0-17.0); Lymph # (Auto) 0.6 th/mm3 (1.0-4.8); Mean Corpuscular HGB Conc 33.8 % (32.0-36.0); Mean Corpuscular Hemoglobin 31.8 pg (27.0-34.0); Mean Platelet Volume 7.4 fL (7.0-11.0); Mono # (Auto) 0.8 th/mm3 (0.0-0.9); Mono % (Auto) 10.8 % (0.0-8.0); Neut # (Auto) 5.4 th/mm3 (1.8-7.7); Neut % (Auto) 76.5 % (16.0-70.0); Platelet Count 173 th/mm3 (150-450); Red Blood Count 2.76 mil/mm3 (4.50-5.90); Red Cell Distribution Width 15.4 % (11.6-17.2); White Blood Count 7.1 th/mm3 (4.0-11.0)
[2018-06-01 07:22] LABS: Calcium 7.8 mg/dL (8.5-10.1); Carbon Dioxide 28.6 meq/L (21.0-32.0); Magnesium 2.3 mg/dL (1.5-2.5); Potassium 4.5 meq/L (3.5-5.1)
[2018-06-01] MEDS: Insulin NovoLOG Aspart Correctional Sugar Inj SQ SCH ×4 (08:52→22:29)
[2018-06-01] MEDS: levoFLOXacin 250 MG Tablet PO SCH (08:52)
[2018-06-01] MEDS: Insulin Detemir Inj 1,000 UNIT/10 ML Vial SQ SCH (08:52)
[2018-06-01] MEDS: amLODIPine 5 MG Tablet PO SCH (08:54)
[2018-06-01] MEDS: Gabapentin 300 MG Capsule PO SCH ×2 (08:55→20:52)
[2018-06-01] MEDS: Senna/Docusate Sodium 8.6/50 MG Tablet PO SCH ×2 (08:55→20:51)
[2018-06-01] MEDS: Methocarbamol 500 MG Tablet PO SCH ×4 (08:55→20:52)
[2018-06-01] MEDS: Calcitriol 0.25 MCG Capsule PO SCH (08:55)
[2018-06-01] MEDS: Metoprolol Tartrate 25 MG Tablet PO SCH ×2 (08:55→20:52)
--- NOTE | 2018-06-01 08:55 | P.PN ---
Subjective Interval history: Follow-up anemia and MRSA bacteremia. No gross bleeding still no bowel movement guaiac ordered. Hemoglobin improved after packed RBC transfusion Physical Exam Vital signs: Vital Signs 05/31/18 10:22 05/31/18 10:42 05/31/18 13:26 Temperature 99.1 F 99.1 F Pulse Rate 73 69 Respiratory Rate 20 20 Blood Pressure 135/70 139/71 Pulse Oximetry 95 05/31/18 16:00 05/31/18 18:00 05/31/18 20:00 Temperature 97.9 F 98.3 F Pulse Rate 73 73 Respiratory Rate 18 16 Blood Pressure 170/76 H 157/75 H Pulse Oximetry 99 99 98 05/31/18 21:00 06/01/18 00:00 Temperature 98.7 F Pulse Rate 73 Respiratory Rate 17 Blood Pressure 165/72 H Pulse Oximetry 98 97 Intake & Output 05/31/18 06/01/18 06/01/18 18:59 06:59 18:59 Intake Total 650 / 650 480 / 480 Output Total 3310 / 3310 100 / 100 Balance -2660 / -2660 380 / 380 - Weight 133.2 kg Intake: IV 250 / 250 Vancomycin Inj 1,000 MG In NS 250 / 250 Inj 250 ML @ 250 mls/hr IV.SIG WITH DIALYSIS SKIP Rx#:[id number] Oral 480 / 480 Intake (Blood Product) Amt 400 / 400 Rbc As-3 Leukoreduced Unit 400 / 400 [id number] Output: Urine 100 / 100 Hemodialysis Amount 3300 / 3300 Wound Drainage # 1 Left Anterior Arm Bartolo Other: # Voids 1 Date of Last Bowel Movement 05/24/18 Narrative: GENERAL: Awake and alert. NAD SKIN: Warm and dry. CARDIOVASCULAR: Regular rate and rhythm without murmurs, gallops, or rubs. RESPIRATORY: Breath sounds equal bilaterally. No accessory muscle use. GASTROINTESTINAL: Abdomen soft, non-tender, nondistended. MUSCULOSKELETAL: No cyanosis, or edema. Right lower extremity with MARIBETH. Left upper arm with MARIBETH wrap. Left lower extremity BKA, MARIBETH on. BACK: Nontender without obvious deformity. No CVA tenderness. Results - Labs CBC & Chem 7: 06/01/18 05:06 06/01/18 05:06 Laboratory Results - last 24 hr 05/31/18 05/31/18 05/31/18 09:56 12:15 16:53 WBC RBC Hgb Hct MCV MCH MCHC RDW Plt Count MPV Neut % (Auto) Lymph % (Auto) [place] % (Auto) Eos % (Auto) Baso % (Auto) Neut # (Auto) Lymph # (Auto) Page # (Auto) Eos # (Auto) Baso # (Auto) WBC Differential Differential Comment Sodium Potassium Chloride Carbon Dioxide Anion Gap BUN Creatinine Estimated GFR POC Glucose 130 H 231 H Random Glucose Calcium Magnesium MTS Gel Crossmatch See Detail 05/31/18 06/01/18 06/01/18 21:02 05:06 05:06 WBC 7.1 RBC 2.76 L Hgb 8.8 L Hct 25.9 L MCV 94.0 MCH 31.8 MCHC 33.8 RDW 15.4 Plt Count 173 MPV 7.4 Neut % (Auto) 76.5 H Lymph % (Auto) 9.0 [place] % (Auto) 10.8 H Eos % (Auto) 3.2 Baso % (Auto) 0.5 Neut # (Auto) 5.4 Lymph # (Auto) 0.6 L [place] # (Auto) 0.8 Eos # (Auto) 0.2 Baso # (Auto) 0.0 WBC Differential . Differential Comment Auto diff final Sodium 135 L Potassium 4.5 D Chloride 98 Carbon Dioxide 28.6 Anion Gap 8 BUN 44 H Creatinine 5.60 H Estimated GFR 10 L POC Glucose 178 H Random Glucose 141 H Calcium 7.8 L Magnesium 2.3 MTS Gel Crossmatch 06/01/18 08:00 WBC RBC Hgb Hct MCV MCH MCHC RDW Plt Count MPV Neut % (Auto) Lymph % (Auto) [place] % (Auto) Eos % (Auto) Baso % (Auto) Neut # (Auto) Lymph # (Auto) [place] # (Auto) Eos # (Auto) Baso # (Auto) WBC Differential Differential Comment Sodium Potassium Chloride Carbon Dioxide Anion Gap BUN Creatinine Estimated GFR POC Glucose 187 H Random Glucose Calcium Magnesium MTS Gel Crossmatch Microbiology 05/29/18 09:21 Tissue - Toe Gram Stain - Final 05/29/18 09:21 Tissue - Toe Wound Culture - Final S. aureus MRSA Enterobacter cloacae Enterococcus faecalis 05/29/18 09:30 Wound - Toe Gram Stain - Final 05/29/18 09:30 Wound - Toe Wound Culture - Final S. aureus MRSA Enterobacter cloacae Enterococcus faecalis 05/29/18 09:12 Wound - Toe Gram Stain - Final 05/29/18 09:12 Wound - Toe Wound Culture - Final S. aureus MRSA Enterobacter cloacae Enterococcus faecalis 05/29/18 09:21 Tissue - Toe Fungal Smear - Final No fungal elements seen 05/29/18 09:30 Other Fungal Smear - Final No fungal elements seen 05/29/18 09:12 Wound - Toe Fungal Smear - Final No fungal elements seen 05/29/18 09:03 Wound - Toe Fungal Smear - Final No fungal elements seen 05/29/18 08:59 Wound - Foot Fungal Smear - Final No fungal elements seen 05/29/18 10:30 Wound - Arm Fungal Smear - Final No fungal elements seen 05/29/18 10:30 Wound - Arm Fungal Smear - Final No fungal elements seen 05/29/18 08:59 Wound - Foot Gram Stain - Final 05/29/18 08:59 Wound - Foot Wound Culture - Final S. aureus MRSA 05/29/18 09:03 Tissue - Toe Gram Stain - Final 05/29/18 09:03 Tissue - Toe Wound Culture - Final S. aureus MRSA 05/29/18 10:30 Wound - Arm Gram Stain - Final 05/29/18 10:30 Wound - Arm Wound Culture - Final S. aureus MRSA 05/29/18 10:30 Wound - Arm Gram Stain - Final 05/29/18 10:30 Wound - Arm Wound Culture - Final S. aureus MRSA - Imaging ITS Impressions Chest CTA 05/21/18 00:00 CONCLUSION: 1. No evidence of pulmonary embolism. 2. Minimal scattered ground-glass densities are noted consistent with minimal pulmonary vascular congestion versus atelectatic changes. 3. Coronary artery calcifications. 4. Tiny bilateral pleural effusions. 5. Splenomegaly. 6. Pneumobilia. 7. 13 mm right thyroid lobe nodule. 8. Degenerative changes throughout the thoracic spine. Chest X-Ray 05/21/18 00:28 CONCLUSION: Small lung volumes with an elevated right hemidiaphragm. Right subclavian bipolar pacer Extremity Arterial Study 05/22/18 00:00 CONCLUSION: 1. There is significant decrease in the ankle-brachial index on the right suggesting severe peripheral vascular disease. The left ankle-brachial index could not be obtained, but the toe brachial index on the left is significantly decreased suggesting severe peripheral vascular disease on the left also. Head CT 05/22/18 00:00 CONCLUSION: 1. Negative CT Head non contrast. . Lower Extremity Ultrasound 05/22/18 00:00 CONCLUSION: 1. Saphenous vein mapping/measurements as described above. Aorta w/Runoff CTA 05/23/18 00:00 CONCLUSION: 1. Patent inflow and outflow bilaterally. 2. Heavily calcified trifurcation vessels limits their patency evaluation. On the right there is possible straight-line flow through the anterior tibial artery and peroneal artery. The posterior tibial artery is clearly occluded. On the left there is a similar appearance. 3. Atrophic kidneys. 4. Splenomegaly. Upper Extremity Ultrasound 05/23/18 00:00 CONCLUSION: 1. Venous mapping as detailed above. Venous Doppler Study 05/23/18 00:00 CONCLUSION: No evidence of deep venous thrombosis. Catheter Placement 05/28/18 00:00 CONCLUSION: 1. 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 2. Uncomplicated line placement as above. Foot CT 05/28/18 00:00 CONCLUSION: 1. Status post transmetatarsal amputation of the fourth and fifth digits. 2. Status post transphalangeal amputation of the first, second and third digits. 3. Punctate subcutaneous focus of air overlying the dorsal second digit amputation stump with very subtle potential erosive change at the amputation site. 4. Mild diffuse soft tissue swelling overlying the forefoot amputation stump. Foot X-Ray 05/29/18 00:00 CONCLUSION: Status post removal of much of the remaining portions of the second and third proximal phalanges with small bony fragments still seen over these regions. - Procedures Left BKA Vascath AVG explantation s/p revision 05/29/18 of R 2nd and 3rd digit stumps Angiogram Assessment and Plan - Assessment (1) Chest pain Code(s): R07.9 - Chest pain, unspecified Status: Acute (2) ESRD (end stage renal disease) on dialysis Code(s): N18.6 - End stage renal disease; Z99.2 - Dependence on renal dialysis Status: Acute (3) DM (diabetes mellitus) Code(s): E11.9 - Type 2 diabetes mellitus without complications Status: Chronic - Plan -MRSA SEPSIS - source is possible LUE AVG infection and or multiple diabetic foot wounds with osteomyelitis. Repeat blood cultures negative. cont abx vancomycin w dialysis ID to determine stop date, s/p avg explantation and amputations, await cxs especially from lower extremity so far growing MRSA and Enterococcus faecalis and Enterobacter cloacae sensitivity pending. Levaquin added -AVF infection/ pseudoaneurysm, malfunction, s/p vas cath placement by IR and graft explantation by vascular -OSTEOMYELITIS LEFT FOOT s/p L BKA 05/27/18 - cont wound care and pt, iv abx per ID. -R FOOT NONHEALING TOE STUMP WOUNDs w EXPOSED BONE - s/p revision 05/29/18 of R 2nd and 3rd digit stumps in OR per podiatry. Path with OM involving r 3rd prox phalanx dw ID -ESRD on dialysis chronic cont as per nephrology, infected avg management as above. Permacath by IR requested. Vein mapping per vasc -PVD s/p angiogram 05/24/18 w both R and L Posterior tibial artery occlusion and severe microvascular dz of both L and R feet, will require followup angiogram of RLE and possible limb salvage after recovery per vascular surgery, cont statin, aspirin and Brilinta -DM II insulin dependent with diabetic peripheral neuropathy, nephropathy. Hyperglycemic restart Lantus at a lower dose -HTN cont norvasc added hydralazine for better control -DYSLIPIDEMIA cont statin -ATYPICAL CP w no acs, non cardiac trop elevation, cardiology following -ACUTE METABOLIC ENCEPHALOPATHY - resolving -SEIZURE DO - stable on home meds -THROMBOCYTOPENIA - improving -OBESITY BMI 37 - diet activity when stable -ANEMIA w drop in HH secondary to acute blood loss from surgery, prob has chronic anemia due to ckd, will monitor, transfuse prn keep hemoglobin at least 8, epo per nephrology. Improved after 3 units of packed RBC. Hemoccult stools DVT PROPHYLAXIS - scd. Chemical prophylaxis if negative guaiac DISPO - planning for rehab, [facility] would like [facility] Discharge Planning: Discharge when cleared byRenal, Vasc, podiatry, ID and snf arranged pending insurance authorization (1) Chest pain Qualifiers: Chest pain type: other chest pain Qualified Code(s): R07.89 - Other chest pain; R07.8 - Other chest pain
[2018-06-01] MEDS: Phenytoin Sodium 100 MG Capsule PO SCH ×2 (08:56→20:52)
[2018-06-01] MEDS: Sodium Chloride 0.9% 2 ML Flush BID IV.FLUSH SCH ×2 (10:26→20:52)
[2018-06-01] MEDS: hydrALAZINE 25 MG Tablet PO SCH ×2 (10:37→20:52)
--- NOTE | 2018-06-01 11:00 | P.PNNP ---
Subjective Interval history: No acute events overnight. Denies any shortness of breath, chest pain, nausea, or vomiting. Pain is well controlled. <Christa Velasquez - Last Filed: 06/01/18 16:13> Physical Exam Vital signs: Vital Signs 05/31/18 13:26 05/31/18 16:00 05/31/18 18:00 Temperature 97.9 F Pulse Rate 73 Respiratory Rate 18 Blood Pressure 170/76 H Pulse Oximetry 95 99 99 05/31/18 20:00 05/31/18 21:00 06/01/18 00:00 Temperature 98.3 F 98.7 F Pulse Rate 73 73 Respiratory Rate 16 17 Blood Pressure 157/75 H 165/72 H Pulse Oximetry 98 98 97 06/01/18 08:00 Temperature 98.6 F Pulse Rate 70 Respiratory Rate 17 Blood Pressure 190/79 H Pulse Oximetry 100 Intake & Output 05/31/18 06/01/18 06/01/18 18:59 06:59 18:59 Intake Total 650 / 650 480 / 480 Output Total 3310 / 3310 100 / 100 Balance -2660 / -2660 380 / 380 -10 Weight 133.2 kg Intake: IV 250 / 250 Vancomycin Inj 1,000 MG In NS 250 / 250 Inj 250 ML @ 250 mls/hr IV.SIG WITH DIALYSIS SKIP Rx#:[id number] Oral 480 / 480 Intake (Blood Product) Amt 400 / 400 Rbc As-3 Leukoreduced Unit 400 / 400 [id number] Output: Urine 100 / 100 Hemodialysis Amount 3300 / 3300 Wound Drainage # 1 Left Anterior Arm Bartolo Other: # Voids 1 Date of Last Bowel Movement 05/24/18 Narrative: GENERAL: Awake and alert. NAD SKIN: Warm and dry. CARDIOVASCULAR: Regular rate and rhythm without murmurs, gallops, or rubs. RESPIRATORY: Breath sounds equal bilaterally. No accessory muscle use. GASTROINTESTINAL: Abdomen soft, non-tender, nondistended. MUSCULOSKELETAL: No cyanosis, or edema. Right lower extremity with MARIBETH. Left upper arm with MARIBETH wrap. Left lower extremity BKA, MARIBETH on. BACK: Nontender without obvious deformity. No CVA tenderness. <Christa Velasquez - Last Filed: 06/01/18 16:13> Vital signs: Vital Signs 12/02/18 00:00 06/05/18 08:00 06/05/18 11:00 Temperature 98.0 F 98.0 F Pulse Rate 61 60 Respiratory Rate 17 16 16 Blood Pressure 122/58 L 122/59 L Pulse Oximetry 96 98 06/05/18 15:55 06/05/18 16:00 Temperature 98.1 F Pulse Rate 65 Respiratory Rate 16 16 Blood Pressure 87/43 L Pulse Oximetry 96 Intake & Output 06/05/18 06/05/18 06/06/18 06:59 18:59 06:59 Intake Total 1450 / 1450 Output Total 250 / 250 1999 Balance -250 / -250 -550 / -550 Weight 125.9 kg Intake: IV 250 / 250 Vancomycin Inj 1,000 MG In NS 250 / 250 Inj 250 ML @ 250 mls/hr IV.SIG WITH DIALYSIS SKIP Rx#:[id number] Oral 1200 / 1200 Output: Urine 250 / 250 Hemodialysis Amount 1999 Other: # Voids 4 Date of Last Bowel Movement 06/03/18 # Bowel Movements 1 <Moni Alvarado - Last Filed: 06/05/18 21:41> Assessment and Plan - Assessment (1) ESRD (end stage renal disease) on dialysis Code(s): N18.6 - End stage renal disease; Z99.2 - Dependence on renal dialysis Status: Acute Plan: Patient with end stage renal disease on HD TTS. Epogen with dialysis. Vas cath in left IJ MRSA in graft, Excision of AVG, STEVEN drain present. Patient needs permacath placement prior to discharge. Consult for interventional for placement however is currently on Brilinta which needs to be held for 5 days prior to insertion. Recommend cardiology consult for recommendations on holding Brilinta. Hemodialysis planned for tomorrow will remove fluid as tolerated. (2) DM (diabetes mellitus) Code(s): E11.9 - Type 2 diabetes mellitus without complications Status: Chronic Plan: Recommend to maintain blood sugars between 140 mg/dl to 180 mg/dl while hospitalized. (3) Anemia Code(s): D64.9 - Anemia, unspecified Status: Acute Plan: Epogen ordered with dialysis. HGB stable improved at 8.8, s/p blood transfusions. (4) Sepsis Code(s): A41.9 - Sepsis, unspecified organism Status: Acute Plan: Blood cultures positive for MRSA. Has MRSA Bacteremia, source ? AVG removed; Antibiotics per ID recommendations, renal dose as appropriate (5) Osteomyelitis of left foot Code(s): M86.9 - Osteomyelitis, unspecified Status: Acute Plan: PVD with osteomyelitis Left BKA on . <Christa Velasquez - Last Filed: 06/01/18 16:13> - Assessment (1) ESRD (end stage renal disease) on dialysis Code(s): N18.6 - End stage renal disease; Z99.2 - Dependence on renal dialysis Status: Acute Plan: Patient seen and examined, agree with above. Continue HD as schedule, need PermCath. (2) DM (diabetes mellitus) Code(s): E11.9 - Type 2 diabetes mellitus without complications Status: Chronic (3) Anemia Code(s): D64.9 - Anemia, unspecified Status: Acute (4) Sepsis Code(s): A41.9 - Sepsis, unspecified organism Status: Acute (5) Osteomyelitis of left foot Code(s): M86.9 - Osteomyelitis, unspecified Status: Acute <Moni Alvarado - Last Filed: 06/05/18 21:41>
--- NOTE | 2018-06-01 14:41 | P.PNVS ---
Subjective Subjective/Hospital Course: Pt w/o complaints, pain controlled Objective Vital Signs / I&O: Vital Signs 05/31/18 16:00 05/31/18 18:00 05/31/18 20:00 Temperature 97.9 F 98.3 F Pulse Rate 73 73 Respiratory Rate 18 16 Blood Pressure 170/76 H 157/75 H Pulse Oximetry 99 99 98 05/31/18 21:00 06/01/18 00:00 06/01/18 08:00 Temperature 98.7 F 98.6 F Pulse Rate 73 70 Respiratory Rate 17 17 Blood Pressure 165/72 H 190/79 H Pulse Oximetry 98 97 100 06/01/18 11:20 06/01/18 12:00 Temperature 98.3 F Pulse Rate 73 Respiratory Rate 18 Blood Pressure 176/76 H Pulse Oximetry 99 97 Intake & Output 05/31/18 06/01/18 06/01/18 18:59 06:59 18:59 Intake Total 650 / 650 480 / 480 Output Total 3310 / 3310 100 / 100 Balance -2660 / -2660 380 / 380 -10 Weight 133.2 kg Intake: IV 250 / 250 Vancomycin Inj 1,000 MG In NS 250 / 250 Inj 250 ML @ 250 mls/hr IV.SIG WITH DIALYSIS SKIP Rx#:[id number] Oral 480 / 480 Intake (Blood Product) Amt 400 / 400 Rbc As-3 Leukoreduced Unit 400 / 400 [id number] Output: Urine 100 / 100 Hemodialysis Amount 3300 / 3300 Wound Drainage # 1 Left Anterior Arm Bartolo Other: # Voids 1 Date of Last Bowel Movement 05/24/18 Physical Exam: LUE wound CDI L BKA wound CDI Laboratory Results - last 24 hr 05/31/18 05/31/18 06/01/18 16:53 21:02 05:06 WBC 7.1 RBC 2.76 L Hgb 8.8 L Hct 25.9 L MCV 94.0 MCH 31.8 MCHC 33.8 RDW 15.4 Plt Count 173 MPV 7.4 Neut % (Auto) 76.5 H Lymph % (Auto) 9.0 [place] % (Auto) 10.8 H Eos % (Auto) 3.2 Baso % (Auto) 0.5 Neut # (Auto) 5.4 Lymph # (Auto) 0.6 L [place] # (Auto) 0.8 Eos # (Auto) 0.2 Baso # (Auto) 0.0 WBC Differential . Differential Comment Auto diff final Sodium Potassium Chloride Carbon Dioxide Anion Gap BUN Creatinine Estimated GFR POC Glucose 231 H 178 H Random Glucose Calcium Magnesium 06/01/18 06/01/18 06/01/18 05:06 08:00 11:38 WBC RBC Hgb Hct MCV MCH MCHC RDW Plt Count MPV Neut % (Auto) Lymph % (Auto) [place] % (Auto) Eos % (Auto) Baso % (Auto) Neut # (Auto) Lymph # (Auto) [place] # (Auto) Eos # (Auto) Baso # (Auto) WBC Differential Differential Comment Sodium 135 L Potassium 4.5 D Chloride 98 Carbon Dioxide 28.6 Anion Gap 8 BUN 44 H Creatinine 5.60 H Estimated GFR 10 L POC Glucose 187 H 258 H Random Glucose 141 H Calcium 7.8 L Magnesium 2.3 Microbiology 05/29/18 09:21 Gram Stain - Final Tissue - Toe Wound Culture - Final S. aureus MRSA Enterobacter cloacae Enterococcus faecalis 05/29/18 09:30 Gram Stain - Final Wound - Toe Wound Culture - Final S. aureus MRSA Enterobacter cloacae Enterococcus faecalis 05/29/18 09:12 Gram Stain - Final Wound - Toe Wound Culture - Final S. aureus MRSA Enterobacter cloacae Enterococcus faecalis 05/29/18 09:21 Fungal Smear - Final Tissue - Toe No fungal elements seen 05/29/18 09:30 Fungal Smear - Final Other No fungal elements seen 05/29/18 09:12 Fungal Smear - Final Wound - Toe No fungal elements seen 05/29/18 09:03 Fungal Smear - Final Wound - Toe No fungal elements seen 05/29/18 08:59 Fungal Smear - Final Wound - Foot No fungal elements seen 05/29/18 10:30 Fungal Smear - Final Wound - Arm No fungal elements seen 05/29/18 10:30 Fungal Smear - Final Wound - Arm No fungal elements seen 05/29/18 08:59 Gram Stain - Final Wound - Foot Wound Culture - Final S. aureus MRSA 05/29/18 09:03 Gram Stain - Final Tissue - Toe Wound Culture - Final S. aureus MRSA 05/29/18 10:30 Gram Stain - Final Wound - Arm Wound Culture - Final S. aureus MRSA 05/29/18 10:30 Gram Stain - Final Wound - Arm Wound Culture - Final S. aureus MRSA Assessment and Plan - Assessment (1) Fever Code(s): R50.9 - Fever, unspecified Status: Acute - Plan 63 yo male with fever and now bacteremia Status post left BKA postop day #, explantation of the left AV graft postop day 3 Will need PCath for HD Vein mapping for new access Keep STEVEN drain for one more day Watch RLE wounds to access wound healing , may need RLE angio Casper Collins MD [phone] (1) Fever Qualifiers: Fever type: unspecified Qualified Code(s): R50.9 - Fever, unspecified
--- NOTE | 2018-06-02 06:49 | P.DCO ---
Post Hospital Infusion Therapy - Infusion Therapy Location of Infusion Therapy: Dialysis Center - Patient Information Patient Weight: 133.2 kg - Diagnosis (1) MRSA (methicillin resistant Staphylococcus aureus) septicemia Code(s): A41.02 - Sepsis due to Methicillin resistant Staphylococcus aureus - Administer Medication Vancomycin Dose: 1 gram IV Directions: q 48 hours with Hemodialysis / Stop Treatment: 07/09/18 - Additional Information Additional Instructions: [x] Peripheral flush and dressing changes per protocol [x] Implanted port and central flight line mechanic: * Implanted port: 10 ml Normal Saline followed by 5 ml Heparin 100 units/ml Heparin flush after each use and monthly to maintain. [] May leave port accessed during therapy. [] May leave peripheral site accessed for duration of therapy. [x] If patient has SOB or respiratory distress, check oxygen saturation. If less than 90% or clinical signs of respiratory distress, administer oxygen at 2 L/min. via nasal cannula and notify physician. [x] Anaphylaxis/Reaction orders: * Stop infusion. * Keep IV line open with saline flush. * Notify physician. * Monitor vital signs every 15 minutes until symptoms resolve. * Check Oxygen saturation; Oxygen at 2 L/min. via nasal cannula if less than 90% or clinical signs of respiratory distress. * Administer diphenhydramine (Benadryl) 25 mg IV STAT, (unless patient has received as pre-med). May repeat once, if necessary. * Solu-Cortef 250 mg IVP over 30-60 seconds, use 100 mg vials for each dissolution. * Epinephrine (1mg/1 ml) 0.3 mg subcutaneously or IVP now with any signs of respiratory distress. * Check with physician for new additional pre-med orders if patient is re- challenged or re-treated. [x] May remove PICC line when treatment complete, after confirming with Physician. [x] If the patient is admitted to the hospital, the ED, or transferred via [facility] , complete transfer form including medication reconciliation order sheet. Weekly Labs: CBC w/diff (every Wednesday) - Case Management Consult Case Management Consult-IVF: Yes (arrange for IV Abx in the HD center) - Patient Information Allergies *MDRO Multi-Drug Resistant Organism Adverse Reaction (Intermediate, Uncoded 00:22) Abdominal Pain 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
--- NOTE | 2018-06-02 07:50 | P.PN ---
Subjective Interval history: Follow-up graft infection and diabetes mellitus. Seen during hemodialysis. Patient has no complaints Physical Exam Vital signs: Vital Signs 06/01/18 08:00 06/01/18 11:20 06/01/18 12:00 Temperature 98.6 F 98.3 F Pulse Rate 70 73 Respiratory Rate 17 18 Blood Pressure 190/79 H 176/76 H Pulse Oximetry 100 99 97 06/01/18 16:00 06/01/18 20:00 06/02/18 00:00 Temperature 98.8 F 98.7 F 98.5 F Pulse Rate 72 71 68 Respiratory Rate 16 17 18 Blood Pressure 136/61 167/74 H 143/69 H Pulse Oximetry 95 92 L 95 Intake & Output 06/01/18 06/02/18 06/02/18 18:59 06:59 18:59 Intake Total 960 / 960 600 / 600 Output Total 210 / 210 Balance 750 / 750 590 / 590 Weight 133.2 kg Intake: Oral 960 / 960 600 / 600 Output: Urine 200 / 200 Wound Drainage # 1 Left Anterior Arm Bartolo Other: # Voids 1 Narrative: GENERAL: Awake and alert. NAD SKIN: Warm and dry. CARDIOVASCULAR: Regular rate and rhythm RESPIRATORY: Breath sounds equal bilaterally. GASTROINTESTINAL: Abdomen soft, non-tender, nondistended. MUSCULOSKELETAL: No cyanosis, or edema. Right lower extremity with MARIBETH. Left upper arm with MARIBETH wrap. Left lower extremity BKA, MARIBETH on. BACK: Nontender without obvious deformity. No CVA tenderness. Results - Labs CBC & Chem 7: 06/01/18 05:06 06/01/18 05:06 Laboratory Results - last 24 hr 06/01/18 06/01/18 06/01/18 08:00 11:38 16:37 POC Glucose 187 H 258 H 381 H 06/01/18 20:55 POC Glucose 292 H Microbiology 05/29/18 09:21 Tissue - Toe Gram Stain - Final 05/29/18 09:21 Tissue - Toe Wound Culture - Final S. aureus MRSA Enterobacter cloacae Enterococcus faecalis 05/29/18 09:30 Wound - Toe Gram Stain - Final 05/29/18 09:30 Wound - Toe Wound Culture - Final S. aureus MRSA Enterobacter cloacae Enterococcus faecalis 05/29/18 09:12 Wound - Toe Gram Stain - Final 05/29/18 09:12 Wound - Toe Wound Culture - Final S. aureus MRSA Enterobacter cloacae Enterococcus faecalis 05/29/18 09:21 Tissue - Toe Fungal Smear - Final No fungal elements seen 05/29/18 09:30 Other Fungal Smear - Final No fungal elements seen 05/29/18 09:12 Wound - Toe Fungal Smear - Final No fungal elements seen 05/29/18 09:03 Wound - Toe Fungal Smear - Final No fungal elements seen 05/29/18 08:59 Wound - Foot Fungal Smear - Final No fungal elements seen 05/29/18 10:30 Wound - Arm Fungal Smear - Final No fungal elements seen 05/29/18 10:30 Wound - Arm Fungal Smear - Final No fungal elements seen - Procedures Left BKA Vascath AVG explantation s/p revision 05/29/18 of R 2nd and 3rd digit stumps Angiogram Assessment and Plan - Assessment (1) Chest pain Code(s): R07.9 - Chest pain, unspecified Status: Acute (2) ESRD (end stage renal disease) on dialysis Code(s): N18.6 - End stage renal disease; Z99.2 - Dependence on renal dialysis Status: Acute (3) DM (diabetes mellitus) Code(s): E11.9 - Type 2 diabetes mellitus without complications Status: Chronic - Plan -MRSA SEPSIS - source is possible LUE AVG infection and or multiple diabetic foot wounds with osteomyelitis. Repeat blood cultures negative. cont abx vancomycin w dialysis stop date 07/09/18, s/p avg explantation and amputations, cxs especially from lower extremity with MRSA and Enterococcus faecalis and Enterobacter cloacae - Levaquin added for 10 days -AVF infection/ pseudoaneurysm, malfunction, s/p vas cath placement by IR and graft explantation by vascular -OSTEOMYELITIS LEFT FOOT s/p L BKA 05/27/18 - cont wound care and pt, iv abx per ID. -R FOOT NONHEALING TOE STUMP WOUNDs w EXPOSED BONE - s/p revision 05/29/18 of R 2nd and 3rd digit stumps in OR per podiatry. Path with OM involving r 3rd prox phalanx dw ID, per podiatry all infected bones removed -ESRD on dialysis chronic cont as per nephrology, infected avg management as above. Permacath by IR requested. 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 Hyperglycemic increase Levemir to 18 units with sliding scale, -HTN cont norvasc added hydralazine for better control. Improved -DYSLIPIDEMIA cont statin -ATYPICAL CP w no acs, non cardiac trop elevation, cardiology following -ACUTE METABOLIC ENCEPHALOPATHY - resolving -SEIZURE DO - stable on home meds -THROMBOCYTOPENIA - improving -OBESITY BMI 37 - diet activity when stable -ANEMIA w drop in HH secondary to acute blood loss from surgery, prob has chronic anemia due to ckd, will monitor, transfuse prn keep hemoglobin at least 8, epo per nephrology. Improved after 3 units of packed RBC. Hemoccult stools -Constipation. Patient on bowel regimen. Nursing to provide as needed medication. DVT PROPHYLAXIS - scd. Chemical prophylaxis if negative guaiac DISPO - planning for rehab, he would like [facility] Discharge Planning: Discharge when cleared by Renal and Vasc. Permacath has to be placed prior to discharge unless patient is transferred to [facility] (1) Chest pain Qualifiers: Chest pain type: other chest pain Qualified Code(s): R07.89 - Other chest pain; R07.8 - Other chest pain
[2018-06-02] MEDS: Metoprolol Tartrate 25 MG Tablet PO SCH ×2 (08:53→21:30)
[2018-06-02] MEDS: Senna/Docusate Sodium 8.6/50 MG Tablet PO SCH ×2 (08:53→21:30)
[2018-06-02] MEDS: Methocarbamol 500 MG Tablet PO SCH ×4 (08:53→21:30)
[2018-06-02] MEDS: Gabapentin 300 MG Capsule PO SCH ×2 (08:53→21:30)
[2018-06-02] MEDS: Calcitriol 0.25 MCG Capsule PO SCH (08:53)
[2018-06-02] MEDS: Morphine Sulfate Inj 2 MG/ML Vial IV.PUSH PRN (08:53)
[2018-06-02] MEDS: levoFLOXacin 250 MG Tablet PO SCH (08:53)
[2018-06-02] MEDS: amLODIPine 5 MG Tablet PO SCH (08:54)
[2018-06-02] MEDS: Phenytoin Sodium 100 MG Capsule PO SCH ×2 (08:54→21:30)
[2018-06-02] MEDS: hydrALAZINE 25 MG Tablet PO SCH ×2 (08:54→21:29)
[2018-06-02] MEDS: Insulin NovoLOG Aspart Correctional Sugar Inj SQ SCH ×4 (09:00→21:31)
[2018-06-02] MEDS: Sodium Chloride 0.9% 2 ML Flush BID IV.FLUSH SCH ×2 (09:01→21:30)
--- NOTE | 2018-06-02 09:52 | P.PNNP ---
Subjective Interval history: Resting comfortably, flat affect. Plan for hemodialysis today. <Christa Velasquez - Last Filed: 06/02/18 12:15> Physical Exam Vital signs: Vital Signs 06/01/18 11:20 06/01/18 12:00 06/01/18 16:00 Temperature 98.3 F 98.8 F Pulse Rate 73 72 Respiratory Rate 18 16 Blood Pressure 176/76 H 136/61 Pulse Oximetry 99 97 95 06/01/18 20:00 06/02/18 00:00 06/02/18 08:00 Temperature 98.7 F 98.5 F 98.0 F Pulse Rate 71 68 66 Respiratory Rate 17 18 19 Blood Pressure 167/74 H 143/69 H 156/75 H Pulse Oximetry 92 L 95 97 Intake & Output 06/01/18 06/02/18 06/02/18 18:59 06:59 18:59 Intake Total 960 / 960 600 / 600 Output Total 210 / 210 10 0 / 0 Balance 750 / 750 590 / 590 0 / 0 Weight 133.2 kg Intake: Oral 960 / 960 600 / 600 Output: Urine 200 / 200 Wound Drainage 0 / 0 # 1 Left Anterior Arm Bartolo 0 / 0 Other: # Voids 1 1 Narrative: GENERAL: Awake and alert. NAD SKIN: Warm and dry. CARDIOVASCULAR: Regular rate and rhythm. Left IJ vas cath RESPIRATORY: Breath sounds equal bilaterally. No accessory muscle use. GASTROINTESTINAL: Abdomen soft, non-tender, nondistended. MUSCULOSKELETAL: No cyanosis, or edema. Right lower extremity with MARIBETH. Left upper arm with MARIBETH wrap. Left lower extremity BKA, MARIBETH on. BACK: Nontender without obvious deformity. No CVA tenderness. <Christa Velasquez - Last Filed: 06/02/18 12:15> Vital signs: Vital Signs 06/05/18 00:00 06/05/18 08:00 06/05/18 11:00 Temperature 98.0 F 98.0 F Pulse Rate 61 60 Respiratory Rate 17 16 16 Blood Pressure 122/58 L 122/59 L Pulse Oximetry 96 98 06/05/18 15:55 06/05/18 16:00 Temperature 98.1 F Pulse Rate 65 Respiratory Rate 16 16 Blood Pressure 87/43 L Pulse Oximetry 96 Intake & Output 06/05/18 06/05/18 06/06/18 06:59 18:59 06:59 Intake Total 1450 / 1450 Output Total 250 / 250 1999 Balance -250 / -250 -550 / -550 Weight 125.9 kg Intake: IV 250 / 250 Vancomycin Inj 1,000 MG In NS 250 / 250 Inj 250 ML @ 250 mls/hr IV.SIG WITH DIALYSIS SKIP Rx#:[id number] Oral 1200 / 1200 Output: Urine 250 / 250 Hemodialysis Amount 1999 Other: # Voids 4 Date of Last Bowel Movement 06/03/18 # Bowel Movements 1 <Moni Alvarado - Last Filed: 06/05/18 22:08> Assessment and Plan - Assessment (1) ESRD (end stage renal disease) on dialysis Code(s): N18.6 - End stage renal disease; Z99.2 - Dependence on renal dialysis Status: Acute Plan: Patient with end stage renal disease on HD TTS. Epogen with dialysis. Vas cath in left IJ MRSA in graft, Excision of AVG, STEVEN drain present. Patient needs permacath placement prior to discharge. Consult for interventional for placement however is currently on Brilinta which needs to be held for 5 days prior to insertion. Per cardiology brilinta can not be held. Call out to interventional radiology for plan Hemodialysis planned for today , 3 K bath, will remove fluid as tolerated. (2) DM (diabetes mellitus) Code(s): E11.9 - Type 2 diabetes mellitus without complications Status: Chronic Plan: Recommend to maintain blood sugars between 140 mg/dl to 180 mg/dl while hospitalized. (3) Anemia Code(s): D64.9 - Anemia, unspecified Status: Acute Plan: Epogen ordered with dialysis. HGB has been stable, s/p blood transfusions. (4) Sepsis Code(s): A41.9 - Sepsis, unspecified organism Status: Acute Plan: Blood cultures positive for MRSA. Has MRSA Bacteremia, source ? AVG removed; Antibiotics per ID recommendations, renal dose as appropriate (5) Osteomyelitis of left foot Code(s): M86.9 - Osteomyelitis, unspecified Status: Acute Plan: PVD with osteomyelitis Left BKA on . <Christa Velasquez - Last Filed: 06/02/18 12:15> - Assessment (1) ESRD (end stage renal disease) on dialysis Code(s): N18.6 - End stage renal disease; Z99.2 - Dependence on renal dialysis Status: Acute Plan: Patient seen and examined, agree with above. To get PermCath. Continue antibiotics as per ID. (2) DM (diabetes mellitus) Code(s): E11.9 - Type 2 diabetes mellitus without complications Status: Chronic (3) Anemia Code(s): D64.9 - Anemia, unspecified Status: Acute (4) Sepsis Code(s): A41.9 - Sepsis, unspecified organism Status: Acute (5) Osteomyelitis of left foot Code(s): M86.9 - Osteomyelitis, unspecified Status: Acute <Moni Alvarado - Last Filed: 06/05/18 22:08>
[2018-06-02] MEDS: Insulin Detemir Inj 1,000 UNIT/10 ML Vial SQ SCH (10:50)
--- NOTE | 2018-06-02 12:29 | P.PNVS ---
Subjective Subjective/Hospital Course: Pt w/o complaints, pain controlled Objective Vital Signs / I&O: Vital Signs 06/01/18 16:00 06/01/18 20:00 06/02/18 00:00 Temperature 98.8 F 98.7 F 98.5 F Pulse Rate 72 71 68 Respiratory Rate 16 17 18 Blood Pressure 136/61 167/74 H 143/69 H Pulse Oximetry 95 92 L 95 06/02/18 08:00 Temperature 98.0 F Pulse Rate 66 Respiratory Rate 19 Blood Pressure 156/75 H Pulse Oximetry 97 Intake & Output 06/01/18 06/02/18 06/02/18 18:59 06:59 18:59 Intake Total 960 / 960 600 / 600 Output Total 210 / 210 10 10 0 / 0 Balance 750 / 750 590 / 590 0 / 0 Weight 133.2 kg Intake: Oral 960 / 960 600 / 600 Output: Urine 200 / 200 Wound Drainage 10 10 0 / 0 # 1 Left Anterior Arm Bartolo 0 / 0 Other: # Voids 1 1 Exam: LUE Wound CDI LLE wound CDI Right toe amputation site CDI Laboratory Results - last 24 hr 06/01/18 06/01/18 06/02/18 16:37 20:55 08:04 POC Glucose 381 H 292 H 208 H 06/02/18 12:24 POC Glucose 160 H Microbiology 05/29/18 09:21 Gram Stain - Final Tissue - Toe Wound Culture - Final S. aureus MRSA Enterobacter cloacae Enterococcus faecalis 05/29/18 09:30 Gram Stain - Final Wound - Toe Wound Culture - Final S. aureus MRSA Enterobacter cloacae Enterococcus faecalis 05/29/18 09:12 Gram Stain - Final Wound - Toe Wound Culture - Final S. aureus MRSA Enterobacter cloacae Enterococcus faecalis 05/29/18 09:21 Fungal Smear - Final Tissue - Toe No fungal elements seen 05/29/18 09:30 Fungal Smear - Final Other No fungal elements seen 05/29/18 09:12 Fungal Smear - Final Wound - Toe No fungal elements seen 05/29/18 09:03 Fungal Smear - Final Wound - Toe No fungal elements seen 05/29/18 08:59 Fungal Smear - Final Wound - Foot No fungal elements seen 05/29/18 10:30 Fungal Smear - Final Wound - Arm No fungal elements seen 05/29/18 10:30 Fungal Smear - Final Wound - Arm No fungal elements seen Assessment and Plan - Assessment (1) Fever Code(s): R50.9 - Fever, unspecified Status: Acute - Plan 63 yo male with fever and now bacteremia Status post left BKA postop day #5, explantation of the left AV graft postop day 6 Continue with local wound care RACHEL HARRIS in am Casper Collins MD [phone] (1) Fever Qualifiers: Fever type: unspecified Qualified Code(s): R50.9 - Fever, unspecified
[2018-06-02] MEDS: Vancomycin Inj 1,000 MG in Sodium Chlor 0.9% Inj 250 ML IV.SIG SCH (12:32)
[2018-06-02] MEDS ORDERED: fentaNYL Citrate Inj 250 MCG/5 ML Ampul ONE (13:29)
[2018-06-02] MEDS ORDERED: *Heparin 10,000 UNITS/10 ML Vial Periprocedural ONLY ONE (13:38)
[2018-06-02] MEDS ORDERED: Lidocaine 1%/Epinephrine 1:100,000 Inj 30 ML Vial ONE (13:39)
--- NOTE | 2018-06-02 14:46 | P.RAD ---
Post Procedure Progress Note - Procedure Information Procedure Date: 06/02/18 Supervising Radiologist: CHARLY Bahena Assisting Physician: Carlos Victoria Estimated blood loss (mL): 1 Anesthesia: Local - Plan of Activity Patient to Unit: ROPU Patient Condition: Good See PACS Report for procedural detail/treatment.
--- NOTE | 2018-06-02 16:02 | IR ---
EXAM DATE: 06/02/2018 2:51 PM EST AGE/SEX: 63 years / Male INDICATIONS: Patient presents with history of end-stage renal disease in need of temporary dialysis catheter exchange to tunneled catheter. CLINICAL DATA: This is the patient's subsequent encounter. Patient reports that signs and symptoms h ave been present for 4 - 6 days and indicates a pain score of 0/10. MEDICAL/SURGICAL HISTORY: . ESRD, HTN, Diabetes, Dyslipidemia, Dialysis, Cardiovascular disease . . Left AV fistula, Cholecystectomy, Great toe amputation, Bilateral knee joint replacement. COMPARISON: No prior exams available for comparison. FLUORO TIME (min): 2.23 IMAGE SERIES: 1 SEDATION TIME (min): 30 MEDICATION(S): 2 mg midazolam (Versed) IV 100 mcg fentanyl (Sublimaze) IV Vancomycin within 2 hrs of procedure, Ancef (or alternative) within 1 hr of procedure. DEVICE(S): 27cm 15 Spanish double lumen Witt II Plus Catheter . . PROCEDURE: 1. Dialysis catheter placement. 2. Conscious sedation with continuous EKG and oximetry monitoring. The risks, benefits and alternatives to the procedure were explained and verbal and written consent w as obtained. The site was prepped in sterile fashion. Full sterile technique was used, including ca p, mask, sterile gloves and gown and a large sterile sheet. Hand hygiene and 2% chlorhexidine and/or betadine/alcohol prep was utilized per protocol for cutaneous antisepsis. The skin and subcutaneous tissues were infiltrated with local anesthetic solution. With fluoroscopic guidance a dermatotomy was created using the existing venous access. A subcutaneou s tunnel was created in a retrograde fashion the catheter was pulled through the tunnel. The cathete r was flushed and assembled and locked with heparin. The catheter was sutured in place. Conscious sedation was performed with the prescribed dosages and duration as above in the presence of an independent trained radiology nurse to assist in the monitoring of the patient. EKG and oximetry remained stable throughout the procedure. The patient tolerated the procedure well and there were n o complications. The patient was sent to post anesthesia recovery in stable condition. CONCLUSION: 1. Uncomplicated Dialysis catheter placement as above. Electronically signed by: Carlos Victoria MD 06/02/2018 4:00 PM EST
--- NOTE | 2018-06-02 18:07 | P.PNID ---
Subjective Remarks: Patient is a 63-year-old male, brought into the hospital complaining of chest pain. Patient has known coronary artery disease. He had prior stenting of his coronaries I believe back in August of this year. In February he was readmitted and had an UT, and at that time he had bradycardia and he underwent placement of a pacemaker. Patient on this admission started having fevers and he was encephalopathic. There was some notation that he had some redness on his left upper extremity where he has his AV graft. Patient stated he had the AV graft put in about 6 months ago and the dialysis unit started using it about 4 months ago. Patient was also noted to have multiple wounds in the right foot as well as in the left foot. He stated he was hospitalized at [facility] last April and had surgery on his toes. He could not really tell me which of the toes he had surgery on. I spoke with microbiology in [facility], and there was a toe culture that grew Morganella morganii acne. It was resistant to ampicillin, Unasyn, cefazolin, and intermediate to gentamicin. Patient was apparently given some oral antibiotic but he could not remember what it was. He was last seen by his crts about a week ago and as far as he knows there was no problem with it. Patient states that he ambulates without any problem at home. Blood cultures done on this admission is now reported as growing possible MRSA. He had imaging study of the AV graft and there is a small fluid close to the AV graft. Patient currently is awake and alert and oriented. He is not short of breath, and currently no chest pain. Patient states he has neuropathy and does not really feel any pain in both feet. Infectious disease consultation has been requested to assist with evaluation and treatment of patient with positive blood culture. Notes reviewed Temps ok S/P LBKA Had surgery on his R foot Had surgery on his AVG D/W podiatry - all infected bones removed C/S from AVG MRSA BC with MRSA Repeat BC negative so far Getting Vanco with HD Antibiotics: Vancomycin Lines: MARION jennings Past Medical History: Neuropathy (Acute) AV fistula (Chronic) Coronary artery disease Diabetes End stage renal disease History of amputation of great toe of both feet Seizure Knee joint replacement status (Acute) History of cholecystectomy Allergies/Adverse Reactions: Allergies *MDRO Multi-Drug Resistant Organism Adverse Reaction (Intermediate, Uncoded 00:22) Abdominal Pain MDR-Acinetobacter baumannii 2004 foot wound MRSA 2007, 09/2013, and 01/2015 in foot wound MRSA PCR Screen positive 01/11/15. Objective Vital Signs 06/01/18 20:00 06/02/18 00:00 06/02/18 08:00 Temperature 98.7 F 98.5 F 98.0 F Pulse Rate 71 68 66 Respiratory Rate 17 18 19 Blood Pressure 167/74 H 143/69 H 156/75 H Pulse Oximetry 92 L 95 97 06/02/18 13:43 06/02/18 14:25 06/02/18 14:40 Temperature 99 F Pulse Rate 75 74 Respiratory Rate 20 20 Blood Pressure 124/63 120/64 Pulse Oximetry 92 L 94 L 98 06/02/18 15:10 06/02/18 16:00 Temperature 97.6 F Pulse Rate 76 80 Respiratory Rate 20 18 Blood Pressure 136/68 132/59 L Pulse Oximetry 93 L 96 Intake & Output 06/01/18 06/02/18 06/02/18 18:59 06:59 18:59 Intake Total 960 / 960 600 / 600 Output Total 210 / 210 3000 / 3000 Balance 750 / 750 590 / 590 -3000 / -3000 Weight 133.2 kg Intake: Oral 960 / 960 600 / 600 Output: Urine 200 / 200 Hemodialysis Amount 3000 / 3000 Wound Drainage 0 / 0 # 1 Left Anterior Arm Bartolo 0 / 0 Other: # Voids 1 1 05/29/18 09:21 Tissue - Toe Gram Stain - Final 05/29/18 09:21 Tissue - Toe Wound Culture - Final S. aureus MRSA Enterobacter cloacae Enterococcus faecalis 05/29/18 09:30 Wound - Toe Gram Stain - Final 05/29/18 09:30 Wound - Toe Wound Culture - Final S. aureus MRSA Enterobacter cloacae Enterococcus faecalis 05/29/18 09:12 Wound - Toe Gram Stain - Final 05/29/18 09:12 Wound - Toe Wound Culture - Final S. aureus MRSA Enterobacter cloacae Enterococcus faecalis 05/29/18 09:21 Tissue - Toe Fungal Smear - Final No fungal elements seen 05/29/18 09:21 Tissue - Toe Fungal Culture - Pending 05/29/18 09:30 Other Fungal Smear - Final No fungal elements seen 05/29/18 09:30 Other Fungal Culture - Pending 05/29/18 09:12 Wound - Toe Fungal Smear - Final No fungal elements seen 05/29/18 09:12 Wound - Toe Fungal Culture - Pending 05/29/18 09:03 Wound - Toe Fungal Smear - Final No fungal elements seen 05/29/18 09:03 Wound - Toe Fungal Culture - Pending 05/29/18 08:59 Wound - Foot Fungal Smear - Final No fungal elements seen 05/29/18 08:59 Wound - Foot Fungal Culture - Pending 05/29/18 10:30 Wound - Arm Fungal Smear - Final No fungal elements seen 05/29/18 10:30 Wound - Arm Fungal Culture - Pending 05/29/18 10:30 Wound - Arm Fungal Smear - Final No fungal elements seen 05/29/18 10:30 Wound - Arm Fungal Culture - Pending 05/29/18 08:59 Wound - Foot Gram Stain - Final 05/29/18 08:59 Wound - Foot Wound Culture - Final S. aureus MRSA 05/29/18 09:03 Tissue - Toe Gram Stain - Final 05/29/18 09:03 Tissue - Toe Wound Culture - Final S. aureus MRSA 05/29/18 10:30 Wound - Arm Gram Stain - Final 05/29/18 10:30 Wound - Arm Wound Culture - Final S. aureus MRSA 05/29/18 10:30 Wound - Arm Gram Stain - Final 05/29/18 10:30 Wound - Arm Wound Culture - Final S. aureus MRSA 05/29/18 09:21 Tissue - Toe Acid Fast Bacilli Smear - Final No acid fast bacilli seen 05/29/18 09:21 Tissue - Toe Mycobacterial Culture - Pending 05/29/18 09:30 Other Acid Fast Bacilli Smear - Final No acid fast bacilli seen 05/29/18 09:30 Other Mycobacterial Culture - Pending 05/29/18 09:12 Wound - Toe Acid Fast Bacilli Smear - Final No acid fast bacilli seen 05/29/18 09:12 Wound - Toe Mycobacterial Culture - Pending 05/29/18 09:03 Tissue - Toe Acid Fast Bacilli Smear - Final No acid fast bacilli seen 05/29/18 09:03 Tissue - Toe Mycobacterial Culture - Pending 05/29/18 08:59 Wound - Foot Acid Fast Bacilli Smear - Final No acid fast bacilli seen 05/29/18 08:59 Wound - Foot Mycobacterial Culture - Pending 05/29/18 10:30 Wound - Arm Acid Fast Bacilli Smear - Final No acid fast bacilli seen 05/29/18 10:30 Wound - Arm Mycobacterial Culture - Pending 05/29/18 10:30 Wound - Arm Acid Fast Bacilli Smear - Final No acid fast bacilli seen 05/29/18 10:30 Wound - Arm Mycobacterial Culture - Pending Lab - Hematology Results 06/01/18 05:06 WBC 7.1 RBC 2.76 L Hgb 8.8 L Hct 25.9 L MCV 94.0 MCH 31.8 MCHC 33.8 RDW 15.4 Plt Count 173 MPV 7.4 Neut % (Auto) 76.5 H Lymph % (Auto) 9.0 [place] % (Auto) 10.8 H Eos % (Auto) 3.2 Baso % (Auto) 0.5 Neut # (Auto) 5.4 Lymph # (Auto) 0.6 L [place] # (Auto) 0.8 Eos # (Auto) 0.2 Baso # (Auto) 0.0 WBC Differential . Differential Comment Auto diff final Lab - Chemistry Results 05/31/18 06/01/18 06/01/18 21:02 05:06 08:00 Sodium 135 L Potassium 4.5 D Chloride 98 Carbon Dioxide 28.6 Anion Gap 8 BUN 44 H Creatinine 5.60 H Estimated GFR 10 L POC Glucose 178 H 187 H Random Glucose 141 H Calcium 7.8 L Magnesium 2.3 06/01/18 06/01/18 06/01/18 11:38 16:37 20:55 Sodium Potassium Chloride Carbon Dioxide Anion Gap BUN Creatinine Estimated GFR POC Glucose 258 H 381 H 292 H Random Glucose Calcium Magnesium 06/02/18 06/02/18 06/02/18 08:04 12:24 17:22 Sodium Potassium Chloride Carbon Dioxide Anion Gap BUN Creatinine Estimated GFR POC Glucose 208 H 160 H 244 H Random Glucose Calcium Magnesium Imaging: ITS Impressions Chest CTA 05/21/18 00:00 CONCLUSION: 1. No evidence of pulmonary embolism. 2. Minimal scattered ground-glass densities are noted consistent with minimal pulmonary vascular congestion versus atelectatic changes. 3. Coronary artery calcifications. 4. Tiny bilateral pleural effusions. 5. Splenomegaly. 6. Pneumobilia. 7. 13 mm right thyroid lobe nodule. 8. Degenerative changes throughout the thoracic spine. Chest X-Ray 05/21/18 00:28 CONCLUSION: Small lung volumes with an elevated right hemidiaphragm. Right subclavian bipolar pacer Extremity Arterial Study 05/22/18 00:00 CONCLUSION: 1. There is significant decrease in the ankle-brachial index on the right suggesting severe peripheral vascular disease. The left ankle-brachial index could not be obtained, but the toe brachial index on the left is significantly decreased suggesting severe peripheral vascular disease on the left also. Head CT 05/22/18 00:00 CONCLUSION: 1. Negative CT Head non contrast. . Lower Extremity Ultrasound 05/22/18 00:00 CONCLUSION: 1. Saphenous vein mapping/measurements as described above. Aorta w/Runoff CTA 05/23/18 00:00 CONCLUSION: 1. Patent inflow and outflow bilaterally. 2. Heavily calcified trifurcation vessels limits their patency evaluation. On the right there is possible straight-line flow through the anterior tibial artery and peroneal artery. The posterior tibial artery is clearly occluded. On the left there is a similar appearance. 3. Atrophic kidneys. 4. Splenomegaly. Upper Extremity Ultrasound 05/23/18 00:00 CONCLUSION: 1. Venous mapping as detailed above. Venous Doppler Study 05/23/18 00:00 CONCLUSION: No evidence of deep venous thrombosis. Foot CT 05/28/18 00:00 CONCLUSION: 1. Status post transmetatarsal amputation of the fourth and fifth digits. 2. Status post transphalangeal amputation of the first, second and third digits. 3. Punctate subcutaneous focus of air overlying the dorsal second digit amputation stump with very subtle potential erosive change at the amputation site. 4. Mild diffuse soft tissue swelling overlying the forefoot amputation stump. Foot X-Ray 05/29/18 00:00 CONCLUSION: Status post removal of much of the remaining portions of the second and third proximal phalanges with small bony fragments still seen over these regions. Catheter Placement 06/02/18 00:00 CONCLUSION: 1. Uncomplicated Dialysis catheter placement as above. Physical Exam: GENERAL: awakens easily, not in respiratory distress. SKIN: Cool and dry. No generalized rash EYES: [place] conjunctiva. No petechia or hemorrhage. No scleral icterus. No injection or drainage. EARS, NOSE AND THROAT: Mucous membranes pink and moist. No oral lesions noted. No exudate. No oral thrush. NECK: Trachea midline. Supple and not tender, no meningeal signs CARDIOVASCULAR: Regular rate and rhythm. No murmurs, rubs or gallops heard. Pacer in R upper chest has well healed incision, not red, not swollen, not tender RESPIRATORY: Clear to auscultation. Breath sounds equal bilaterally. No rales , wheezing or rhonchi ABDOMEN: Soft, globular, non-tender, nondistended. Bowel sounds present and normoactive. No guarding. No rebound. EXTREMITIES: No clubbing, cyanosis. Intact dressing to both LE. Intact dressing to his LUE, has STEVEN drain in place NEUROLOGICAL: Non-focal PSYCHIATRIC: Normal affect, calm and cooperative. LINE: No evidence of infection Assessment and Plan (1) MRSA (methicillin resistant Staphylococcus aureus) septicemia Status: Acute Code(s): A41.02 - Sepsis due to Methicillin resistant Staphylococcus aureus - Plan Impression MRSA sepsis, source? Infected AVG, S/P surgery 05/29 Multiple ulcers toes R foot, S/P surgery 05/29 ESRD on HD Encephalopathy due to sepsis, better PVD, BLE Recommendation Continue IV vancomycin - plan 6 weeks IV vanco from date of AVG surgery - I filled out Abx form PO Levaquin x 7-10 days Monitor progress Clinically doing well from ID standpoint
[2018-06-03] MEDS: Insulin NovoLOG Aspart Correctional Sugar Inj SQ SCH ×4 (08:32→21:04)
[2018-06-03] MEDS: Insulin Detemir Inj 1,000 UNIT/10 ML Vial SQ SCH (08:33)
[2018-06-03] MEDS: amLODIPine 5 MG Tablet PO SCH (09:56)
[2018-06-03] MEDS: Methocarbamol 500 MG Tablet PO SCH ×4 (09:57→20:51)
[2018-06-03] MEDS: Calcitriol 0.25 MCG Capsule PO SCH (09:57)
[2018-06-03] MEDS: Senna/Docusate Sodium 8.6/50 MG Tablet PO SCH ×2 (09:57→20:51)
[2018-06-03] MEDS: Phenytoin Sodium 100 MG Capsule PO SCH ×2 (09:57→20:51)
[2018-06-03] MEDS: Gabapentin 300 MG Capsule PO SCH ×2 (09:57→20:51)
[2018-06-03] MEDS: Metoprolol Tartrate 25 MG Tablet PO SCH ×2 (09:57→20:51)
[2018-06-03] MEDS: hydrALAZINE 25 MG Tablet PO SCH ×2 (09:57→20:51)
[2018-06-03] MEDS: levoFLOXacin 250 MG Tablet PO SCH (09:57)
[2018-06-03] MEDS: Sodium Chloride 0.9% 2 ML Flush BID IV.FLUSH SCH ×2 (10:00→20:52)
--- NOTE | 2018-06-03 10:35 | P.PNVS ---
Subjective Subjective/Hospital Course: Pt w/o complaints, pain controlled Objective Vital Signs / I&O: Vital Signs 06/02/18 13:43 06/02/18 14:25 06/02/18 14:40 Temperature 99 F Pulse Rate 75 74 Respiratory Rate 20 20 Blood Pressure 124/63 120/64 Pulse Oximetry 92 L 94 L 98 06/02/18 15:10 06/02/18 16:00 06/02/18 19:53 Temperature 97.6 F Pulse Rate 76 80 Respiratory Rate 20 18 Blood Pressure 136/68 132/59 L Pulse Oximetry 93 L 96 94 L 06/02/18 20:00 06/02/18 22:04 06/03/18 00:00 Temperature 98.9 F 98.4 F Pulse Rate 79 72 Respiratory Rate 15 16 17 Blood Pressure 124/60 113/69 Pulse Oximetry 96 98 06/03/18 08:00 Temperature 98.3 F Pulse Rate 78 Respiratory Rate 19 Blood Pressure 158/74 H Pulse Oximetry 96 Intake & Output 06/02/18 06/03/18 06/03/18 18:59 06:59 18:59 Intake Total 250 / 250 240 / 240 Output Total 3000 / 3000 5 / 5 Balance -2750 / -2750 235 / 235 Weight 123.2 kg Intake: IV 250 / 250 Vancomycin Inj 1,000 MG In NS 250 / 250 Inj 250 ML @ 250 mls/hr IV.SIG WITH DIALYSIS SKIP Rx#:[id number] Oral 240 / 240 Output: Hemodialysis Amount 3000 / 3000 Wound Drainage 0 / 0 5 / 5 # 1 Left Anterior Arm Bartolo 0 / 0 5 / 5 Other: # Voids 1 Date of Last Bowel Movement 05/24/18 Exam: LUE wound CDI Left BKA wound CDI Right foot wound, showing ischemic changes on the planter aspect of the right foot. incision CDI Laboratory Results - last 24 hr 06/02/18 06/02/18 06/02/18 12:24 17:22 21:28 POC Glucose 160 H 244 H 224 H 06/03/18 07:53 POC Glucose 201 H Assessment and Plan - Assessment (1) Fever Code(s): R50.9 - Fever, unspecified Status: Acute - Plan 63 yo male with fever and now bacteremia Status post left BKA postop day #7, explantation of the left AV graft postop day 6 Continue with local wound care DC STEVEN right foot with signs of ischemia, plan angio on Wednesday Casper Streeterub MD [phone] (1) Fever Qualifiers: Fever type: unspecified Qualified Code(s): R50.9 - Fever, unspecified
[2018-06-03] MEDS: Morphine Sulfate Inj 2 MG/ML Vial IV.PUSH PRN ×3 (11:50→22:39)
--- NOTE | 2018-06-03 12:39 | P.PNID ---
Subjective Remarks: Patient is a 63-year-old male, brought into the hospital complaining of chest pain. Patient has known coronary artery disease. He had prior stenting of his coronaries I believe back in August of this year. In February he was readmitted and had an [place], and at that time he had bradycardia and he underwent placement of a pacemaker. Patient on this admission started having fevers and he was encephalopathic. There was some notation that he had some redness on his left upper extremity where he has his AV graft. Patient stated he had the AV graft put in about 6 months ago and the dialysis unit started using it about 4 months ago. Patient was also noted to have multiple wounds in the right foot as well as in the left foot. He stated he was hospitalized at [facility] last April and had surgery on his toes. He could not really tell me which of the toes he had surgery on. I spoke with microbiology in [facility], and there was a toe culture that grew Morganella morganii acne. It was resistant to ampicillin, Unasyn, cefazolin, and intermediate to gentamicin. Patient was apparently given some oral antibiotic but he could not remember what it was. He was last seen by his hairspring adjuster about a week ago and as far as he knows there was no problem with it. Patient states that he ambulates without any problem at home. Blood cultures done on this admission is now reported as growing possible MRSA. He had imaging study of the AV graft and there is a small fluid close to the AV graft. Patient currently is awake and alert and oriented. He is not short of breath, and currently no chest pain. Patient states he has neuropathy and does not really feel any pain in both feet. Infectious disease consultation has been requested to assist with evaluation and treatment of patient with positive blood culture. Notes reviewed Vascular notes reviewed Ischemic changes R foot - angio plans for Wednesday ok S/P LBKA Had surgery on his R foot Had surgery on his AVG C/S from AVG MRSA BC with MRSA Repeat BC negative so far Getting Vanco with HD Antibiotics: Levaquin Vancomycin Lines: MARION jennings Past Medical History: Neuropathy (Acute) AV fistula (Chronic) Coronary artery disease Diabetes End stage renal disease History of amputation of great toe of both feet Seizure Knee joint replacement status (Acute) History of cholecystectomy Allergies/Adverse Reactions: Allergies *MDRO Multi-Drug Resistant Organism Adverse Reaction (Intermediate, Uncoded 11/ 17/18 00:22) Abdominal Pain 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 Objective Vital Signs 06/02/18 13:43 06/02/18 14:25 06/02/18 14:40 Temperature 99 F Pulse Rate 75 74 Respiratory Rate 20 20 Blood Pressure 124/63 120/64 Pulse Oximetry 92 L 94 L 98 06/02/18 15:10 06/02/18 16:00 06/02/18 19:53 Temperature 97.6 F Pulse Rate 76 80 Respiratory Rate 20 18 Blood Pressure 136/68 132/59 L Pulse Oximetry 93 L 96 94 L 06/02/18 20:00 06/02/18 22:04 06/03/18 00:00 Temperature 98.9 F 98.4 F Pulse Rate 79 72 Respiratory Rate 15 16 17 Blood Pressure 124/60 113/69 Pulse Oximetry 96 98 06/03/18 08:00 06/03/18 12:00 Temperature 98.3 F 97.9 F Pulse Rate 78 78 Respiratory Rate 19 19 Blood Pressure 158/74 H 141/67 H Pulse Oximetry 96 97 Intake & Output 06/02/18 06/03/18 06/03/18 18:59 06:59 18:59 Intake Total 250 / 250 240 / 240 Output Total 3000 / 3000 5 / 5 Balance -2750 / -2750 235 / 235 Weight 123.2 kg Intake: IV 250 / 250 Vancomycin Inj 1,000 MG In NS 250 / 250 Inj 250 ML @ 250 mls/hr IV.SIG WITH DIALYSIS ON LICENSE OF [facility] Rx#:[id number] Oral 240 / 240 Output: Hemodialysis Amount 3000 / 3000 Wound Drainage 0 / 0 5 / 5 # 1 Left Anterior Arm Bartolo 0 / 0 5 / 5 Other: # Voids 1 Date of Last Bowel Movement 05/24/18 05/29/18 09:21 Tissue - Toe Gram Stain - Final 05/29/18 09:21 Tissue - Toe Wound Culture - Final S. aureus MRSA Enterobacter cloacae Enterococcus faecalis 05/29/18 09:30 Wound - Toe Gram Stain - Final 05/29/18 09:30 Wound - Toe Wound Culture - Final S. aureus MRSA Enterobacter cloacae Enterococcus faecalis 05/29/18 09:12 Wound - Toe Gram Stain - Final 05/29/18 09:12 Wound - Toe Wound Culture - Final S. aureus MRSA Enterobacter cloacae Enterococcus faecalis 05/29/18 09:21 Tissue - Toe Fungal Smear - Final No fungal elements seen 05/29/18 09:21 Tissue - Toe Fungal Culture - Pending 05/29/18 09:30 Other Fungal Smear - Final No fungal elements seen 05/29/18 09:30 Other Fungal Culture - Pending 05/29/18 09:12 Wound - Toe Fungal Smear - Final No fungal elements seen 05/29/18 09:12 Wound - Toe Fungal Culture - Pending 05/29/18 09:03 Wound - Toe Fungal Smear - Final No fungal elements seen 05/29/18 09:03 Wound - Toe Fungal Culture - Pending 05/29/18 08:59 Wound - Foot Fungal Smear - Final No fungal elements seen 05/29/18 08:59 Wound - Foot Fungal Culture - Pending 05/29/18 10:30 Wound - Arm Fungal Smear - Final No fungal elements seen 05/29/18 10:30 Wound - Arm Fungal Culture - Pending 05/29/18 10:30 Wound - Arm Fungal Smear - Final No fungal elements seen 05/29/18 10:30 Wound - Arm Fungal Culture - Pending 05/29/18 08:59 Wound - Foot Gram Stain - Final 05/29/18 08:59 Wound - Foot Wound Culture - Final S. aureus MRSA 05/29/18 09:03 Tissue - Toe Gram Stain - Final 05/29/18 09:03 Tissue - Toe Wound Culture - Final S. aureus MRSA 05/29/18 10:30 Wound - Arm Gram Stain - Final 05/29/18 10:30 Wound - Arm Wound Culture - Final S. aureus MRSA 05/29/18 10:30 Wound - Arm Gram Stain - Final 05/29/18 10:30 Wound - Arm Wound Culture - Final S. aureus MRSA Lab - Chemistry Results 06/01/18 06/01/18 06/02/18 16:37 20:55 08:04 POC Glucose 381 H 292 H 208 H 06/02/18 06/02/18 06/02/18 12:24 17:22 21:28 POC Glucose 160 H 244 H 224 H 06/03/18 06/03/18 07:53 11:57 POC Glucose 201 H 214 H Imaging: ITS Impressions Chest CTA 05/21/18 00:00 CONCLUSION: 1. No evidence of pulmonary embolism. 2. Minimal scattered ground-glass densities are noted consistent with minimal pulmonary vascular congestion versus atelectatic changes. 3. Coronary artery calcifications. 4. Tiny bilateral pleural effusions. 5. Splenomegaly. 6. Pneumobilia. 7. 13 mm right thyroid lobe nodule. 8. Degenerative changes throughout the thoracic spine. Chest X-Ray 05/21/18 00:28 CONCLUSION: Small lung volumes with an elevated right hemidiaphragm. Right subclavian bipolar pacer Extremity Arterial Study 05/22/18 00:00 CONCLUSION: 1. There is significant decrease in the ankle-brachial index on the right suggesting severe peripheral vascular disease. The left ankle-brachial index could not be obtained, but the toe brachial index on the left is significantly decreased suggesting severe peripheral vascular disease on the left also. Head CT 05/22/18 00:00 CONCLUSION: 1. Negative CT Head non contrast. . Lower Extremity Ultrasound 05/22/18 00:00 CONCLUSION: 1. Saphenous vein mapping/measurements as described above. Aorta w/Runoff CTA 05/23/18 00:00 CONCLUSION: 1. Patent inflow and outflow bilaterally. 2. Heavily calcified trifurcation vessels limits their patency evaluation. On the right there is possible straight-line flow through the anterior tibial artery and peroneal artery. The posterior tibial artery is clearly occluded. On the left there is a similar appearance. 3. Atrophic kidneys. 4. Splenomegaly. Upper Extremity Ultrasound 05/23/18 00:00 CONCLUSION: 1. Venous mapping as detailed above. Venous Doppler Study 05/23/18 00:00 CONCLUSION: No evidence of deep venous thrombosis. Foot CT 05/28/18 00:00 CONCLUSION: 1. Status post transmetatarsal amputation of the fourth and fifth digits. 2. Status post transphalangeal amputation of the first, second and third digits. 3. Punctate subcutaneous focus of air overlying the dorsal second digit amputation stump with very subtle potential erosive change at the amputation site. 4. Mild diffuse soft tissue swelling overlying the forefoot amputation stump. Foot X-Ray 05/29/18 00:00 CONCLUSION: Status post removal of much of the remaining portions of the second and third proximal phalanges with small bony fragments still seen over these regions. Catheter Placement 06/02/18 00:00 CONCLUSION: 1. Uncomplicated Dialysis catheter placement as above. Physical Exam: GENERAL: awakens easily, NAD SKIN: Cool and dry. No generalized rash EYES: [place] conjunctiva. No petechia or hemorrhage. No scleral icterus. No injection or drainage. EARS, NOSE AND THROAT: Mucous membranes pink and moist. No oral lesions noted. No exudate. No oral thrush. NECK: Trachea midline. Supple and not tender, no meningeal signs CARDIOVASCULAR: Regular rate and rhythm. No murmurs, rubs or gallops heard. Pacer in R upper chest looks ok. RESPIRATORY: Clear to auscultation. Breath sounds equal bilaterally. No rales , wheezing or rhonchi ABDOMEN: Soft, globular, non-tender, nondistended. Bowel sounds present and normoactive. No guarding. No rebound. EXTREMITIES: No clubbing, cyanosis. Intact dressing to both LE. Intact dressing to his LUE NEUROLOGICAL: Non-focal PSYCHIATRIC: Normal affect, calm and cooperative. LINE: No evidence of infection Assessment and Plan (1) MRSA (methicillin resistant Staphylococcus aureus) septicemia Status: Acute Code(s): A41.02 - Sepsis due to Methicillin resistant Staphylococcus aureus - Plan Impression MRSA sepsis, source? Infected AVG, S/P surgery 05/29 Multiple ulcers toes R foot, S/P surgery 05/29 ESRD on HD Encephalopathy due to sepsis, better PVD, BLE Recommendation Continue IV vancomycin - plan 6 weeks IV vanco from date of AVG surgery - I filled out Abx form PO Levaquin x 7-10 days Monitor progress Clinically doing well from ID standpoint ANgio plans noted for Wednesday D/W Dr Gonzalez
--- NOTE | 2018-06-03 14:05 | P.PN ---
Subjective Interval history: Follow-up PAD. Discussed with vascular surgery, hold discharge as he plans to do angiogram of the right lower extremity because of nonhealing wound. He complains of dizziness sitting up being attended by physical therapy Physical Exam Vital signs: Vital Signs 06/02/18 14:25 06/02/18 14:40 06/02/18 15:10 Temperature 99 F Pulse Rate 75 74 76 Respiratory Rate 20 20 20 Blood Pressure 124/63 120/64 136/68 Pulse Oximetry 94 L 98 93 L 06/02/18 16:00 06/02/18 19:53 06/02/18 20:00 Temperature 97.6 F 98.9 F Pulse Rate 80 79 Respiratory Rate 18 15 Blood Pressure 132/59 L 124/60 Pulse Oximetry 96 94 L 96 06/02/18 22:04 06/03/18 00:00 06/03/18 08:00 Temperature 98.4 F 98.3 F Pulse Rate 72 78 Respiratory Rate 16 17 19 Blood Pressure 113/69 158/74 H Pulse Oximetry 98 96 06/03/18 12:00 Temperature 97.9 F Pulse Rate 78 Respiratory Rate 19 Blood Pressure 141/67 H Pulse Oximetry 97 Intake & Output 06/02/18 06/03/18 06/03/18 18:59 06:59 18:59 Intake Total 250 / 250 240 / 240 Output Total 3000 / 3000 5 / 5 Balance -2750 / -2750 235 / 235 Weight 123.2 kg Intake: IV 250 / 250 Vancomycin Inj 1,000 MG In NS 250 / 250 Inj 250 ML @ 250 mls/hr IV.SIG WITH DIALYSIS SKIP Rx#:[id number] Oral 240 / 240 Output: Hemodialysis Amount 3000 / 3000 Wound Drainage 0 / 0 5 / 5 # 1 Left Anterior Arm Bartolo 0 / 0 5 / 5 Other: # Voids 1 Date of Last Bowel Movement 05/24/18 Narrative: GENERAL: Awake and alert. NAD SKIN: Warm and dry. CARDIOVASCULAR: Regular rate and rhythm RESPIRATORY: Breath sounds equal bilaterally. GASTROINTESTINAL: Abdomen soft, non-tender, nondistended. MUSCULOSKELETAL: No cyanosis, or edema. Right lower extremity with MARIBETH. Left upper arm with MARIBETH wrap. Left lower extremity BKA, MARIBETH on. BACK: Nontender without obvious deformity. No CVA tenderness. Results - Labs CBC & Chem 7: 06/01/18 05:06 06/01/18 05:06 Laboratory Results - last 24 hr 06/02/18 06/02/18 06/03/18 17:22 21:28 07:53 POC Glucose 244 H 224 H 201 H 06/03/18 11:57 POC Glucose 214 H - Imaging Impressions Catheter Placement 06/02/18 00:00 CONCLUSION: 1. Uncomplicated Dialysis catheter placement as above. - Procedures Left BKA Vascath AVG explantation s/p revision 05/29/18 of R 2nd and 3rd digit stumps Angiogram Permacath Assessment and Plan - Assessment (1) Chest pain Code(s): R07.9 - Chest pain, unspecified Status: Acute (2) ESRD (end stage renal disease) on dialysis Code(s): N18.6 - End stage renal disease; Z99.2 - Dependence on renal dialysis Status: Acute (3) DM (diabetes mellitus) Code(s): E11.9 - Type 2 diabetes mellitus without complications Status: Chronic - Plan -MRSA SEPSIS - source is possible LUE AVG infection and or multiple diabetic foot wounds with osteomyelitis. Repeat blood cultures negative. cont abx vancomycin w dialysis stop date 07/09/18, s/p avg explantation and amputations, cxs especially from lower extremity with MRSA and Enterococcus faecalis and Enterobacter cloacae - Levaquin added for 10 days -AVF infection/ pseudoaneurysm, malfunction, s/p vas cath placement by IR and graft explantation by vascular -OSTEOMYELITIS LEFT FOOT s/p L BKA 05/27/18 - cont wound care and pt, iv abx per ID. -R FOOT NONHEALING TOE STUMP WOUNDs w EXPOSED BONE - s/p revision 05/29/18 of R 2nd and 3rd digit stumps in OR per podiatry. Path with OM involving r 3rd prox phalanx dw ID, per podiatry all infected bones removed -ESRD on dialysis chronic cont as per nephrology, infected avg management as above. Permacath by IR requested. Per cardiology Brilinta cannot be stopped -PVD s/p angiogram 05/24/18 w both R and L Posterior tibial artery occlusion and severe microvascular dz of both L and R feet, will require followup angiogram of RLE this coming Wednesday and possible limb salvage after recovery per vascular surgery, cont statin, aspirin and Brilinta -DM II insulin dependent with diabetic peripheral neuropathy, nephropathy. Hyperglycemic increase Levemir to 18 units with sliding scale, -HTN cont norvasc added hydralazine for better control. Improved -DYSLIPIDEMIA cont statin -ATYPICAL CP w no acs, non cardiac trop elevation, cardiology following -ACUTE METABOLIC ENCEPHALOPATHY - resolving -SEIZURE DO - stable on home meds -THROMBOCYTOPENIA - improving -OBESITY BMI 37 - diet activity when stable -ANEMIA w drop in HH secondary to acute blood loss from surgery, prob has chronic anemia due to ckd, will monitor, transfuse prn keep hemoglobin at least 8, epo per nephrology. Improved after 3 units of packed RBC. Hemoccult stools -Constipation. Patient on bowel regimen. Nursing to provide as needed medication. DVT PROPHYLAXIS - scd. Chemical prophylaxis if negative guaiac DISPO - planning for rehab, he would like [facility] Discharge Planning: Discharge when cleared by Renal and Vasc. (1) Chest pain Qualifiers: Chest pain type: other chest pain Qualified Code(s): R07.89 - Other chest pain; R07.8 - Other chest pain
--- NOTE | 2018-06-03 21:50 | P.PNNP ---
Subjective Interval history: Patient seen in the afternoon, no SOB, mild pain in left leg. Physical Exam Vital signs: Vital Signs 06/02/18 22:04 06/03/18 00:00 06/03/18 08:00 Temperature 98.4 F 98.3 F Pulse Rate 72 78 Respiratory Rate 16 17 19 Blood Pressure 113/69 158/74 H Pulse Oximetry 98 93 L 06/03/18 11:17 06/03/18 11:52 06/03/18 12:00 Temperature 97.9 F Pulse Rate 78 Respiratory Rate 18 18 19 Blood Pressure 141/67 H Pulse Oximetry 97 06/03/18 16:00 06/03/18 20:00 Temperature 98.5 F 98.6 F Pulse Rate 72 64 Respiratory Rate 19 22 Blood Pressure 140/64 138/65 Pulse Oximetry 96 95 Intake & Output 06/03/18 06/03/18 06/04/18 06:59 18:59 06:59 Intake Total 240 / 240 700 / 700 Output Total 5 / 5 Balance 235 / 235 700 / 700 Weight 123.2 kg Intake: Oral 240 / 240 700 / 700 Output: Wound Drainage 5 / 5 # 1 Left Anterior Arm Bartolo 5 / 5 Other: # Voids 3 Date of Last Bowel Movement 05/24/18 06/03/18 # Bowel Movements 1 Narrative: GENERAL: Awake and alert. NAD SKIN: Warm and dry. CARDIOVASCULAR: Regular rate and rhythm RESPIRATORY: Breath sounds equal bilaterally. GASTROINTESTINAL: Abdomen soft, non-tender, nondistended. MUSCULOSKELETAL: No cyanosis, or edema. Right lower extremity with MARIBETH. Left upper arm with MARIBETH wrap. Left lower extremity BKA, MARIBETH on. BACK: Nontender without obvious deformity. No CVA tenderness. Assessment and Plan - Assessment (1) ESRD (end stage renal disease) on dialysis Code(s): N18.6 - End stage renal disease; Z99.2 - Dependence on renal dialysis Status: Acute Plan: Patient with end stage renal disease on HD TTS. Epogen with dialysis. Vas cath in left IJ MRSA in graft, Excision of AVG, STEVEN drain present. Patient needs permacath placement prior to discharge. Consult for interventional for placement however is currently on Brilinta which needs to be held for 5 days prior to insertion. Per cardiology brilinta can not be held. Call out to interventional radiology for plan Hemodialysis done yesterday. Will need to continue HD for 6 weeks as per ID. Post PermCath placement. (2) DM (diabetes mellitus) Code(s): E11.9 - Type 2 diabetes mellitus without complications Status: Chronic Plan: Recommend to maintain blood sugars between 140 mg/dl to 180 mg/dl while hospitalized. (3) Anemia Code(s): D64.9 - Anemia, unspecified Status: Acute Plan: Epogen ordered with dialysis. HGB has been stable, s/p blood transfusions. (4) Sepsis Code(s): A41.9 - Sepsis, unspecified organism Status: Acute Plan: Blood cultures positive for MRSA. Has MRSA Bacteremia, source ? AVG removed; Antibiotics per ID recommendations, renal dose as appropriate (5) Osteomyelitis of left foot Code(s): M86.9 - Osteomyelitis, unspecified Status: Acute Plan: PVD with osteomyelitis Left BKA on .
[2018-06-04] MEDS: Morphine Sulfate Inj 2 MG/ML Vial IV.PUSH PRN ×3 (08:20→20:22)
[2018-06-04] MEDS: Methocarbamol 500 MG Tablet PO SCH ×4 (08:22→20:22)
[2018-06-04] MEDS: Phenytoin Sodium 100 MG Capsule PO SCH ×2 (08:22→20:22)
[2018-06-04] MEDS: levoFLOXacin 250 MG Tablet PO SCH (08:22)
[2018-06-04] MEDS: Metoprolol Tartrate 25 MG Tablet PO SCH ×2 (08:22→20:22)
[2018-06-04] MEDS: amLODIPine 5 MG Tablet PO SCH (08:22)
[2018-06-04] MEDS: Sodium Chloride 0.9% 2 ML Flush BID IV.FLUSH SCH ×2 (08:22→20:22)
[2018-06-04] MEDS: Gabapentin 300 MG Capsule PO SCH ×2 (08:22→20:22)
[2018-06-04] MEDS: Senna/Docusate Sodium 8.6/50 MG Tablet PO SCH ×2 (08:23→20:22)
[2018-06-04] MEDS: Insulin Detemir Inj 1,000 UNIT/10 ML Vial SQ SCH ×2 (08:23→14:51)
[2018-06-04] MEDS: Calcitriol 0.25 MCG Capsule PO SCH (08:23)
[2018-06-04] MEDS: hydrALAZINE 25 MG Tablet PO SCH ×2 (08:23→20:22)
[2018-06-04] MEDS: Insulin NovoLOG Aspart Correctional Sugar Inj SQ SCH ×4 (08:23→20:23)
--- NOTE | 2018-06-04 09:35 | P.PNNP ---
Subjective Interval history: Denies any shortness of breath, chest pain, nausea, or vomiting. Reports pain in left arm and left lower extremity. Hemodialysis today, however PermCath is malfunctioning. <Christa Velasquez - Last Filed: 06/04/18 09:30> Physical Exam Vital signs: Vital Signs 06/03/18 11:17 06/03/18 11:52 06/03/18 12:00 Temperature 97.9 F Pulse Rate 78 Respiratory Rate 18 18 19 Blood Pressure 141/67 H Pulse Oximetry 97 06/03/18 16:00 06/03/18 20:00 06/04/18 00:00 Temperature 98.5 F 98.6 F 98.2 F Pulse Rate 72 64 64 Respiratory Rate 19 22 20 Blood Pressure 140/64 138/65 117/59 L Pulse Oximetry 96 95 97 06/04/18 04:00 Temperature 99.1 F Pulse Rate 65 Respiratory Rate 20 Blood Pressure 128/61 Pulse Oximetry 94 L Intake & Output 06/03/18 06/04/18 06/04/18 18:59 06:59 18:59 Intake Total 700 / 700 240 / 240 Balance 700 / 700 240 / 240 Weight 123.5 kg Intake: Oral 700 / 700 240 / 240 Other: # Voids 3 # Incontinent Voids 2 Date of Last Bowel Movement 06/03/18 06/03/18 # Bowel Movements 1 # Incontinent Bowel Movements 1 Narrative: GENERAL: Awake and alert. NAD SKIN: Warm and dry. CARDIOVASCULAR: Regular rate and rhythm. Left IJ permacath RESPIRATORY: Breath sounds equal bilaterally. GASTROINTESTINAL: Abdomen soft, non-tender, nondistended. MUSCULOSKELETAL: No cyanosis, or edema. Right lower extremity with MARIBETH. Left upper arm with MARIBETH wrap. Left lower extremity BKA, MARIBETH on. BACK: Nontender without obvious deformity. No CVA tenderness. <Christa Velasquez - Last Filed: 06/04/18 09:30> Vital signs: Vital Signs 06/05/18 00:00 06/05/18 08:00 06/05/18 11:00 Temperature 98.0 F 98.0 F Pulse Rate 61 60 Respiratory Rate 17 16 16 Blood Pressure 122/58 L 122/59 L Pulse Oximetry 96 98 06/05/18 15:55 06/05/18 16:00 Temperature 98.1 F Pulse Rate 65 Respiratory Rate 16 16 Blood Pressure 87/43 L Pulse Oximetry 96 Intake & Output 06/05/18 06/05/18 06/06/18 06:59 18:59 06:59 Intake Total 1450 / 1450 Output Total 250 / 250 1999 Balance -250 / -250 -550 / -550 Weight 125.9 kg Intake: IV 250 / 250 Vancomycin Inj 1,000 MG In NS 250 / 250 Inj 250 ML @ 250 mls/hr IV.SIG WITH DIALYSIS SKIP Rx#:[id number] Oral 1200 / 1200 Output: Urine 250 / 250 Hemodialysis Amount 1999 Other: # Voids 4 Date of Last Bowel Movement 06/03/18 # Bowel Movements 1 <Moni Alvarado - Last Filed: 06/05/18 20:40> Assessment and Plan - Assessment (1) ESRD (end stage renal disease) on dialysis Code(s): N18.6 - End stage renal disease; Z99.2 - Dependence on renal dialysis Status: Acute Plan: Patient with end stage renal disease on HD TTS. Epogen with dialysis. MRSA in graft, Excision of AVG. Will need to continue antibiotics for 6 weeks as per ID. Post PermCath placement yesterday. Hemodialysis today and perma cath has malfunctioned unable to do HD. Interventional consulted for possible replacement. Labs ordered for tomorrow (2) DM (diabetes mellitus) Code(s): E11.9 - Type 2 diabetes mellitus without complications Status: Chronic Plan: Recommend to maintain blood sugars between 140 mg/dl to 180 mg/dl while hospitalized. (3) Anemia Code(s): D64.9 - Anemia, unspecified Status: Acute Plan: Epogen ordered with dialysis. HGB has been stable, s/p blood transfusions. (4) Sepsis Code(s): A41.9 - Sepsis, unspecified organism Status: Acute Plan: Blood cultures positive for MRSA. Has MRSA Bacteremia, source ? AVG removed; Antibiotics per ID recommendations, renal dose as appropriate (5) Osteomyelitis of left foot Code(s): M86.9 - Osteomyelitis, unspecified Status: Acute Plan: PVD with osteomyelitis Left BKA on . Need to have angiogram of right leg for non healing wounds <Christa Velasquez - Last Filed: 06/04/18 09:30> - Assessment (1) ESRD (end stage renal disease) on dialysis Code(s): N18.6 - End stage renal disease; Z99.2 - Dependence on renal dialysis Status: Acute Plan: Patient seen and examined, agree with above. Patient has air bubble in the arterial port, need PermCath change, not in fluid overload. Will need HD after PermCath change. (2) DM (diabetes mellitus) Code(s): E11.9 - Type 2 diabetes mellitus without complications Status: Chronic (3) Anemia Code(s): D64.9 - Anemia, unspecified Status: Acute (4) Sepsis Code(s): A41.9 - Sepsis, unspecified organism Status: Acute (5) Osteomyelitis of left foot Code(s): M86.9 - Osteomyelitis, unspecified Status: Acute <Moni Alvarado - Last Filed: 06/05/18 20:40>
--- NOTE | 2018-06-04 14:12 | P.PN ---
Subjective Interval history: Follow-up end-stage renal disease. Hemodialysis on hold due nonfunctional permacath nephrology following denies shortness of breath. He is not oliguric Physical Exam Vital signs: Vital Signs 06/03/18 16:00 06/03/18 20:00 06/04/18 00:00 Temperature 98.5 F 98.6 F 98.2 F Pulse Rate 72 64 64 Respiratory Rate 19 22 20 Blood Pressure 140/64 138/65 117/59 L Pulse Oximetry 96 95 97 06/04/18 04:00 06/04/18 08:00 06/04/18 12:00 Temperature 99.1 F 97.8 F 98.2 F Pulse Rate 65 60 60 Respiratory Rate 20 16 18 Blood Pressure 128/61 141/63 H 116/56 L Pulse Oximetry 94 L 95 97 Intake & Output 06/03/18 06/04/18 06/04/18 18:59 06:59 18:59 Intake Total 700 / 700 240 / 240 Balance 700 / 700 240 / 240 Weight 123.5 kg Intake: Oral 700 / 700 240 / 240 Other: # Voids 3 # Incontinent Voids 2 Date of Last Bowel Movement 06/03/18 06/03/18 # Bowel Movements 1 # Incontinent Bowel Movements 1 Narrative: GENERAL: Awake and alert. NAD SKIN: Warm and dry. CARDIOVASCULAR: Regular rate and rhythm. Left IJ permacath (non-functional) RESPIRATORY: Breath sounds equal bilaterally. GASTROINTESTINAL: Abdomen soft, non-tender, nondistended. MUSCULOSKELETAL: No cyanosis, or edema. Right lower extremity with MARIBETH. Left upper arm with MARIBETH wrap. Left lower extremity BKA, MARIBETH on. BACK: Nontender without obvious deformity. No CVA tenderness. Results - Labs CBC & Chem 7: 06/01/18 05:06 06/01/18 05:06 Laboratory Results - last 24 hr 06/03/18 06/03/18 06/04/18 16:53 20:59 08:11 POC Glucose 334 H 245 H 182 H 06/04/18 11:33 POC Glucose 224 H - Procedures Left BKA Vascath AVG explantation s/p revision 05/29/18 of R 2nd and 3rd digit stumps Angiogram Permacath Assessment and Plan - Assessment (1) Chest pain Code(s): R07.9 - Chest pain, unspecified Status: Acute (2) ESRD (end stage renal disease) on dialysis Code(s): N18.6 - End stage renal disease; Z99.2 - Dependence on renal dialysis Status: Acute (3) DM (diabetes mellitus) Code(s): E11.9 - Type 2 diabetes mellitus without complications Status: Chronic - Plan -MRSA SEPSIS - source is possible LUE AVG infection and or multiple diabetic foot wounds with osteomyelitis. Repeat blood cultures negative. cont abx vancomycin w dialysis stop date 07/09/18, s/p avg explantation and amputations, cxs especially from lower extremity with MRSA and Enterococcus faecalis and Enterobacter cloacae - Levaquin added for 10 days -AVF infection/ pseudoaneurysm, malfunction, s/p vas cath placement by IR and graft explantation by vascular -OSTEOMYELITIS LEFT FOOT s/p L BKA 05/27/18 - cont wound care and pt, iv abx per ID. -R FOOT NONHEALING TOE STUMP WOUNDs w EXPOSED BONE - s/p revision 05/29/18 of R 2nd and 3rd digit stumps in OR per podiatry. Path with OM involving r 3rd prox phalanx dw ID, per podiatry all infected bones removed -ESRD on dialysis chronic cont as per nephrology, infected avg management as above. Permacath not working mgt per renal. Per cardiology Brilinta cannot be stopped -PVD s/p angiogram 05/24/18 w both R and L Posterior tibial artery occlusion and severe microvascular dz of both L and R feet, will require followup angiogram of RLE this Wednesday and possible limb salvage after recovery per vascular surgery, cont statin, aspirin and Brilinta -DM II insulin dependent with diabetic peripheral neuropathy, nephropathy. Hyperglycemic increase Levemir to 26 units with sliding scale, -HTN cont norvasc added hydralazine for better control. Improved -DYSLIPIDEMIA cont statin -ATYPICAL CP w no acs, non cardiac trop elevation, cardiology following -ACUTE METABOLIC ENCEPHALOPATHY - resolving -SEIZURE DO - stable on home meds -THROMBOCYTOPENIA - improving -OBESITY BMI 37 - diet activity when stable -ANEMIA w drop in HH secondary to acute blood loss from surgery, prob has chronic anemia due to ckd, will monitor, transfuse prn keep hemoglobin at least 8, epo per nephrology. Improved after 3 units of packed RBC. Hemoccult stools -Constipation. Patient on bowel regimen. Nursing to provide as needed medication. DVT PROPHYLAXIS - scd. Chemical prophylaxis if negative guaiac DISPO - planning for rehab, he would like [facility] Discharge Planning: Discharge when cleared by Renal and Vasc. (1) Chest pain Qualifiers: Chest pain type: other chest pain Qualified Code(s): R07.89 - Other chest pain; R07.8 - Other chest pain
[2018-06-04 14:15] LABS: Calcium 8.2 mg/dL (8.5-10.1); Carbon Dioxide 25.5 meq/L (21.0-32.0); Potassium 4.7 meq/L (3.5-5.1)
[2018-06-04] MEDS ORDERED: *Heparin 10,000 UNITS/10 ML Vial Periprocedural ONLY ONE (16:57)
[2018-06-04] MEDS ORDERED: Lidocaine 1%/Epinephrine 1:100,000 Inj 20 ML Vial ONE (16:57)
[2018-06-04] MEDS ORDERED: fentaNYL Citrate Inj 100 MCG/2 ML Ampul ONE (17:13)
[2018-06-04] MEDS ORDERED: Heparin Central Flush 100 UNIT/ML 5 ML Vial IV.FLUSH PRN (17:31)
--- NOTE | 2018-06-04 17:34 | P.RAD ---
Post Procedure Progress Note - Pre Procedure Diagnosis (1) Encounter for dialysis catheter care - Post Procedure Diagnosis (1) Encounter for dialysis catheter care - Procedure Information Procedure Date: 06/04/18 Supervising Radiologist: Les Wallace Jr, MD Proceduralist/Assist: Ulises Marquez Anesthesia: Conscious Sedation - Plan of Activity Patient to Unit: PACU Patient Condition: Good See PACS Report for procedural detail/treatment. [facility] Radiology Procedures left Internal Jugular Hemodialysis Catheter Tunneled Exchange Device: dual lumen Syrian: 15 - Additional Detail Findings: Original Permcath drawing air secondary to malfunctioning seal on hub. Replaced with new catheter that functions well. Plan: To PACU
--- NOTE | 2018-06-04 19:10 | IR ---
EXAM DATE: 06/04/2018 6:55 PM EST AGE/SEX: 63 years / Male INDICATIONS: Patient presents with malfunctioning Tunneled Central Venous Catheter in need of a repl acement. CLINICAL DATA: This is the patient's initial encounter. Patient reports that signs and symptoms have been present for 1 day and indicates a pain score of 9/10. MEDICAL/SURGICAL HISTORY: Hypertension. Diabetes. ESRD, Dyslipidemia, Dialysis, Cardiovascular Disease. Cholecystectomy. Left AV Fistula, Great toe amputation, Bilateral knee joint replacement. COMPARISON: No prior exams available for comparison. FLUORO TIME (min): 1.12 IMAGE SERIES: 3 ACCESS SITE: Left internal jugular vein SEDATION TIME (min): 30 MEDICATION(S): 1 mg midazolam (Versed) IV 50 mcg fentanyl (Sublimaze) IV DEVICE(S): Witt 15 Fr x 31 cm Double Lumen . . PROCEDURE : 1. Fluoroscopically-guided venipuncture. 2. PermaCath placement. 3. Conscious sedation with continuous EKG and oximetry monitoring. The risks, benefits and alternatives to the procedure were explained and verbal and written consent w as obtained. The site was prepped in sterile fashion. Full sterile technique was used, including ca p, mask, sterile gloves and gown and a large sterile sheet. Hand hygiene and 2% chlorhexidine Betadi ne was utilized per protocol for cutaneous antisepsis with appropriate dry time for site. The skin a nd subcutaneous tissues were infiltrated with local anesthetic solution. Aspiration on the original catheter draws back air. The dysfunction is felt relating to the hub. The catheter tip is also in the SVC. Exchange of the catheter felt prudent. Existing catheter was removed over a wire. A 31 cm Witt perm catheter was passed over the wire and appropriately positioned with the tips in the right atrium. The catheter flushes and aspirates well. The catheter was flushed and assembled and locked with heparin. The catheter was sutured in place. Conscious sedation was performed with the prescribed dosages and duration as above in the presence of an independent trained radiology nurse to assist in the monitoring of the patient. EKG and oximetry remained stable throughout the procedure. The patient tolerated the procedure well and there were n o complications. The patient was sent to post anesthesia recovery in stable condition. CONCLUSION: 1. Uncomplicated PermaCath replacement as above. Electronically signed by: Les Wallace MD 06/04/2018 7:08 PM EST
[2018-06-05] MEDS: Morphine Sulfate Inj 2 MG/ML Vial IV.PUSH PRN ×4 (00:12→21:26)
[2018-06-05] MEDS: amLODIPine 5 MG Tablet PO SCH (08:39)
[2018-06-05] MEDS: Calcitriol 0.25 MCG Capsule PO SCH (08:39)
[2018-06-05] MEDS: Methocarbamol 500 MG Tablet PO SCH ×4 (08:40→20:16)
[2018-06-05] MEDS: Senna/Docusate Sodium 8.6/50 MG Tablet PO SCH ×2 (08:40→20:16)
[2018-06-05] MEDS: Metoprolol Tartrate 25 MG Tablet PO SCH ×2 (08:40→20:16)
[2018-06-05] MEDS: Gabapentin 300 MG Capsule PO SCH ×2 (08:40→20:16)
[2018-06-05] MEDS: Insulin Detemir Inj 1,000 UNIT/10 ML Vial SQ SCH (08:41)
[2018-06-05] MEDS: levoFLOXacin 250 MG Tablet PO SCH (08:41)
[2018-06-05] MEDS: hydrALAZINE 25 MG Tablet PO SCH ×2 (08:41→20:16)
[2018-06-05] MEDS: Phenytoin Sodium 100 MG Capsule PO SCH ×2 (08:41→20:15)
[2018-06-05] MEDS: Insulin NovoLOG Aspart Correctional Sugar Inj SQ SCH ×4 (08:42→20:20)
[2018-06-05] MEDS: Sodium Chloride 0.9% 2 ML Flush BID IV.FLUSH SCH ×2 (08:42→20:18)
[2018-06-05 09:04] LABS: Baso # (Auto) 0.1 th/mm3 (0.0-0.2); Baso % (Auto) 0.9 % (0.0-2.0); Eos # (Auto) 0.5 th/mm3 (0.0-0.4); Eos % (Auto) 6.9 % (0.0-4.0); Hematocrit 26.4 % (39.0-51.0); Mean Corpuscular HGB Conc 34.2 % (32.0-36.0); Mean Corpuscular Hemoglobin 32.5 pg (27.0-34.0); Mean Corpuscular Volume 95.1 fL (80.0-100.0); Mean Platelet Volume 7.3 fL (7.0-11.0); Mono # (Auto) 0.5 th/mm3 (0.0-0.9); Mono % (Auto) 7.6 % (0.0-8.0); Neut # (Auto) 4.6 th/mm3 (1.8-7.7); Neut % (Auto) 69.6 % (16.0-70.0); Platelet Count 223 th/mm3 (150-450); Red Blood Count 2.77 mil/mm3 (4.50-5.90); Red Cell Distribution Width 15.5 % (11.6-17.2); White Blood Count 6.7 th/mm3 (4.0-11.0)
--- NOTE | 2018-06-05 09:17 | P.PN ---
Subjective Interval history: Follow-up renal failure. Permacath replaced yesterday. Patient has no complaints for hemodialysis today Physical Exam Vital signs: Vital Signs 06/04/18 12:00 06/04/18 16:00 06/04/18 17:45 Temperature 98.2 F 97.7 F 97.8 F Pulse Rate 60 60 64 Respiratory Rate 18 16 15 Blood Pressure 116/56 L 112/57 L 108/58 L Pulse Oximetry 97 95 100 06/04/18 18:00 06/04/18 18:15 06/04/18 18:20 Temperature 97.8 F Pulse Rate 60 60 60 Respiratory Rate 15 16 16 Blood Pressure 96/49 L 106/52 L 116/55 L Pulse Oximetry 95 94 L 94 L 06/04/18 18:45 06/04/18 20:00 06/05/18 00:00 Temperature 98.1 F 97.5 F L 98.0 F Pulse Rate 61 64 61 Respiratory Rate 18 17 17 Blood Pressure 118/56 L 162/70 H 122/58 L Pulse Oximetry 98 99 96 06/05/18 08:00 Temperature 98.0 F Pulse Rate 60 Respiratory Rate 16 Blood Pressure 122/59 L Pulse Oximetry 98 Intake & Output 06/04/18 06/05/18 06/05/18 18:59 06:59 18:59 Intake Total 240 / 240 Output Total 250 / 250 Balance 240 / 240 -250 / -250 Weight 125.9 kg Intake: Oral 240 / 240 Output: Urine 250 / 250 Other: # Incontinent Voids 2 Date of Last Bowel Movement 06/03/18 Narrative: GENERAL: Awake and alert. NAD SKIN: Warm and dry. CARDIOVASCULAR: Regular rate and rhythm. New IJ permacath RESPIRATORY: Breath sounds equal bilaterally. GASTROINTESTINAL: Abdomen soft, non-tender, nondistended. MUSCULOSKELETAL: No cyanosis, or edema. Right lower extremity with MARIBETH. Left upper arm with MARIBETH wrap. Left lower extremity BKA, MARIBETH on. BACK: Nontender without obvious deformity. No CVA tenderness. Results - Labs CBC & Chem 7: 06/05/18 08:13 06/05/18 08:13 Laboratory Results - last 24 hr 06/04/18 06/04/18 06/04/18 11:33 12:34 17:49 WBC RBC Hgb Hct MCV MCH MCHC RDW Plt Count MPV Neut % (Auto) Lymph % (Auto) [place] % (Auto) Eos % (Auto) Baso % (Auto) Neut # (Auto) Lymph # (Auto) [place] # (Auto) Eos # (Auto) Baso # (Auto) WBC Differential Differential Comment Sodium 129 L Potassium 4.7 Chloride 94 L Carbon Dioxide 25.5 Anion Gap 10 BUN 51 H Creatinine 6.52 H Estimated GFR 9 L POC Glucose 224 H 148 H Random Glucose 179 H Calcium 8.2 L 06/04/18 06/05/18 06/05/18 20:19 07:38 08:13 WBC 6.7 RBC 2.77 L Hgb 9.0 L Hct 26.4 L MCV 95.1 MCH 32.5 MCHC 34.2 RDW 15.5 Plt Count 223 MPV 7.3 Neut % (Auto) 69.6 Lymph % (Auto) 15.0 [place] % (Auto) 7.6 Eos % (Auto) 6.9 H Baso % (Auto) 0.9 Neut # (Auto) 4.6 Lymph # (Auto) 1.0 [place] # (Auto) 0.5 Eos # (Auto) 0.5 H Baso # (Auto) 0.1 WBC Differential . Differential Comment Auto diff final Sodium Potassium Chloride Carbon Dioxide Anion Gap BUN Creatinine Estimated GFR POC Glucose 161 H 195 H Random Glucose Calcium - Imaging Impressions Central Venous Line 06/04/18 00:00 CONCLUSION: 1. Uncomplicated PermaCath replacement as above. - Procedures Left BKA Vascath AVG explantation s/p revision 05/29/18 of R 2nd and 3rd digit stumps Angiogram Permacath x 2 Assessment and Plan - Assessment (1) Chest pain Code(s): R07.9 - Chest pain, unspecified Status: Acute (2) ESRD (end stage renal disease) on dialysis Code(s): N18.6 - End stage renal disease; Z99.2 - Dependence on renal dialysis Status: Acute (3) DM (diabetes mellitus) Code(s): E11.9 - Type 2 diabetes mellitus without complications Status: Chronic - Plan -MRSA SEPSIS - source is possible LUE AVG infection and or multiple diabetic foot wounds with osteomyelitis. Repeat blood cultures negative. cont abx vancomycin w dialysis stop date 07/09/18, s/p avg explantation and amputations, cxs especially from lower extremity with MRSA and Enterococcus faecalis and Enterobacter cloacae - Levaquin added for 10 days -AVF infection/ pseudoaneurysm, malfunction, s/p vas cath placement by IR and graft explantation by vascular -OSTEOMYELITIS LEFT FOOT s/p L BKA 05/27/18 - cont wound care and pt, iv abx per ID. -R FOOT NONHEALING TOE STUMP WOUNDs w EXPOSED BONE - s/p revision 05/29/18 of R 2nd and 3rd digit stumps in OR per podiatry. Path with OM involving r 3rd prox phalanx dw ID, per podiatry all infected bones removed -ESRD on dialysis chronic cont as per nephrology, infected avg management as above. New permacath by IR. Per cardiology Brilinta cannot be stopped -PVD s/p angiogram 05/24/18 w both R and L Posterior tibial artery occlusion and severe microvascular dz of both L and R feet, will require followup angiogram of RLE tomorrow and possible limb salvage after recovery per vascular surgery, cont statin, aspirin and Brilinta -DM II insulin dependent with diabetic peripheral neuropathy, nephropathy. Improving continue Levemir 26 units with sliding scale, -HTN cont norvasc added hydralazine for better control. Improved -DYSLIPIDEMIA cont statin -ATYPICAL CP w no acs, non cardiac trop elevation, cardiology following -ACUTE METABOLIC ENCEPHALOPATHY - resolving -SEIZURE DO - stable on home meds -THROMBOCYTOPENIA - improving -OBESITY BMI 37 - diet activity when stable -ANEMIA w drop in HH secondary to acute blood loss from surgery, prob has chronic anemia due to ckd, will monitor, transfuse prn keep hemoglobin at least 8, epo per nephrology. Improved after 3 units of packed RBC. Hemoccult stools discussed with nursing again -Constipation. Patient on bowel regimen. Nursing to provide as needed medication. DVT PROPHYLAXIS - scd. Chemical prophylaxis if negative guaiac DISPO - planning for rehab, [facility] would like [facility] Discharge Planning: Discharge when cleared by Renal and Vasc. (1) Chest pain Qualifiers: Chest pain type: other chest pain Qualified Code(s): R07.89 - Other chest pain; R07.8 - Other chest pain
[2018-06-05 09:33] LABS: Albumin 2.3 g/dL (3.4-5.0); Calcium 7.8 mg/dL (8.5-10.1); Carbon Dioxide 27.4 meq/L (21.0-32.0); Phosphorus 6.4 mg/dL (2.5-4.9); Potassium 5.1 meq/L (3.5-5.1)
[2018-06-05] MEDS: Vancomycin Inj 1,000 MG in Sodium Chlor 0.9% Inj 250 ML IV.SIG SCH (13:15)
--- NOTE | 2018-06-05 20:04 | P.PNPOD ---
Subjective Interval history: Patient seen bedside. No concerns at this time. Denies any N,V, F, CH. Reports pain to RLE and L BKA stump. Physical Exam Vital signs: Vital Signs 06/04/18 20:00 06/05/18 00:00 06/05/18 08:00 Temperature 97.5 F L 98.0 F 98.0 F Pulse Rate 64 61 60 Respiratory Rate 17 17 16 Blood Pressure 162/70 H 122/58 L 122/59 L Pulse Oximetry 99 96 98 06/05/18 11:00 06/05/18 15:55 06/05/18 16:00 Temperature 98.1 F Pulse Rate 65 Respiratory Rate 16 16 16 Blood Pressure 87/43 L Pulse Oximetry 96 Intake & Output 06/05/18 06/05/18 06/06/18 06:59 18:59 06:59 Intake Total 1450 / 1450 Output Total 250 / 250 1999 Balance -250 / -250 -550 / -550 Weight 125.9 kg Intake: IV 250 / 250 Vancomycin Inj 1,000 MG In NS 250 / 250 Inj 250 ML @ 250 mls/hr IV.SIG WITH DIALYSIS [facility] Rx#:[id number] Oral 1200 / 1200 Output: Urine 250 / 250 Hemodialysis Amount 1999 Other: # Voids 4 Date of Last Bowel Movement 06/03/18 # Bowel Movements 1 Narrative: Sutures intact with skin well coapted to dorsal right foot. Dorsal right foot necrosis with eschar present, present to posterior heel and Achilles. Non palpable pulses. Cyanosis noted to previous hallux amputation site. Medications and Allergies Active Medications: Active Medications Acetaminophen (Tylenol) 650 mg PO Q4H PRN PRN Reason: Temp > 100.4 Last Admin: 05/21/18 08:42 Dose: 650 mg Acetaminophen (Tylenol) 650 mg PO UNSCH PRN PRN Reason: SEE LABEL COMMENTS Hydrocodone Bitart/Acetaminophen ([place] 5/325) 1 tab PO Q4H PRN PRN Reason: PAIN SCALE 1 TO 10 Last Admin: 06/05/18 15:23 Dose: 1 tab Amlodipine Besylate (Norvasc) 10 mg PO DAILY [facility] Last Admin: 06/05/18 08:39 Dose: 10 mg Aspirin (Aspirin Chew) 81 mg PO DAILY [facility] Last Admin: 06/05/18 08:40 Dose: 81 mg Atorvastatin Calcium (Lipitor) 20 mg PO HS [facility] Last Admin: 06/04/18 20:22 Dose: 20 mg Bisacodyl (Dulcolax Supp) 10 mg RECTAL DAILY PRN PRN Reason: SEVERE CONSITIPATION Calcitriol (Rocaltrol) 0.25 mcg PO DAILY [facility] Last Admin: 06/05/18 08:39 Dose: 0.25 mcg Clonidine HCl (Catapres) 0.1 mg PO UNSCH PRN PRN Reason: SEE LABEL COMMENTS Last Admin: 05/25/18 19:28 Dose: 0.1 mg Clonidine HCl (Catapres) 0.1 mg PO Q6H PRN PRN Reason: SEE LABEL COMMENTS Dextrose (D50w Vial) 50 ml IV.PUSH UNSCH PRN PRN Reason: PER HYPOGLYCEMIA PROTOCOL Diphenhydramine HCl (Benadryl) 25 mg PO UNSCH PRN PRN Reason: SEE LABEL COMMENTS Epoetin Stefano (Epogen Inj) 6,000 unit IV.PUSH UNSCH PRN PRN Reason: SEE LABEL COMMENTS Last Admin: 06/05/18 14:08 Dose: 6,000 unit Gabapentin (Neurontin) 300 mg PO BID [facility] Last Admin: 06/05/18 08:40 Dose: 300 mg Gelatin (Gelfoam 12 Mm/7 Mm Topical) 1 foam TOPICAL PRN PRN PRN Reason: help stop bleeding from site Gentamicin Sulfate (Gentamicin Inj) 20 mg OTHER WITH DIALYSIS PRN PRN Reason: Dwell Gentamycin Lock Last Admin: 06/05/18 14:08 Dose: 20 mg Glucagon (Glucagon Inj) 1 mg OTHER PRN PRN PRN Reason: for Hypoglycemia Protocol Heparin Sodium (Porcine) (Heparin Inj) 8,000 units OTHER WITH DIALYSIS PRN PRN Reason: for machine prime Heparin Sodium (Porcine) (Heparin Inj) 1,000 units OTHER WITH DIALYSIS PRN PRN Reason: Dwell Heparin to Fill Catheter Heparin Sodium (Porcine) (Heparin Central Flush) 0 unit IV.FLUSH DAILY PRN PRN Reason: SEE DOSE INSTRUCTIONS Hydralazine HCl (Apresoline) 25 mg PO BID [facility] Last Admin: 06/05/18 08:41 Dose: 25 mg Albumin Human (Flexbumin 25% Inj) 100 mls @ 60 mls/hr IV.SIG WITH DIALYSIS PRN PRN Reason: hypotension / volume replace Sodium Chloride (Ns Inj) 1,000 mls @ 0 mls/hr OTHER .Q0M PRN PRN Reason: for prime and rinse back Sodium Chloride (Ns Inj) 1,000 mls @ 200 mls/hr OTHER .Q5H PRN PRN Reason: for dialyzer flush PRN Sodium Chloride (Ns Inj) 1,000 mls @ 0 mls/hr IV.CONT .Q0M PRN PRN Reason: hypotension / volume replace Vancomycin HCl 1,000 mg/ (Sodium Chloride) 250 mls @ 250 mls/hr IV.SIG WITH DIALYSIS [facility] Last Infusion: 06/05/18 14:15 Dose: Infused Sodium Chloride (Ns Inj) 500 mls @ 30 mls/hr IV.SIG .Q10H [facility] Last Admin: 05/27/18 13:08 Dose: Not Given Insulin Aspart (Novolog Insulin Correctional Sugar Inj) 0 unit SQ ACHS [facility]; Protocol Last Admin: 06/05/18 17:07 Dose: 3 unit Insulin Detemir (Levemir Inj) 26 unit SQ DAILY [facility] Last Admin: 06/05/18 08:41 Dose: 26 unit Lactulose (Lactulose Liq) 30 ml PO DAILY [facility] Last Admin: 06/05/18 08:41 Dose: 30 ml Levofloxacin (Levaquin) 250 mg PO DAILY [facility] Last Admin: 06/05/18 08:41 Dose: 250 mg Mannitol (Mannitol Inj) 12.5 gm IV.PUSH UNSCH PRN PRN Reason: hypotension / volume replace Methocarbamol (Robaxin) 500 mg PO QID [facility] Last Admin: 06/05/18 17:07 Dose: 500 mg Metoprolol Tartrate (Lopressor) 25 mg PO BID [facility] Last Admin: 06/05/18 08:40 Dose: 25 mg Morphine Sulfate (Morphine Inj) 2 mg IV.PUSH Q3H PRN PRN Reason: BREAKTHROUGH PAIN Last Admin: 06/05/18 16:40 Dose: 2 mg Nitroglycerin (Nitro-Bid 2% Oint) 1 inch TOPICAL Q6HR [facility] Last Admin: 06/05/18 17:07 Dose: 1 inch Nitroglycerin (Nitrostat Sl) 0.4 mg SL Q5M PRN PRN Reason: CHEST PAIN Ondansetron HCl (Zofran Inj) 4 mg IV.PUSH Q6H PRN PRN Reason: NAUSEA OR VOMITING Ondansetron HCl (Zofran Inj) 4 mg IV.PUSH UNSCH PRN PRN Reason: NAUSEA OR VOMITING Ondansetron HCl (Zofran Odt) 4 mg PO Q6H PRN PRN Reason: NAUSEA OR VOMITING Phenytoin Sodium (Dilantin) 200 mg PO BID [facility] Last Admin: 06/05/18 08:41 Dose: 200 mg Promethazine HCl (Phenergan Supp) 25 mg RECTAL Q6H PRN PRN Reason: NAUSEA OR VOMITING Senna/Docusate Sodium (Winifred-Colace) 1 tab PO BID [facility] Last Admin: 06/05/18 08:40 Dose: 1 tab Sennosides (Senokot) 17.2 mg PO Q12H PRN PRN Reason: Moderate Constipation Last Admin: 06/01/18 22:29 Dose: 17.2 mg Sodium Chloride (Ns Flush) 2 ml IV.FLUSH BID [facility] Last Admin: 06/05/18 08:42 Dose: 2 ml Sodium Chloride (Ns Flush) 2 ml IV.FLUSH PRN PRN PRN Reason: FLUSH AFTER USING IV ACCESS Last Admin: 05/30/18 03:43 Dose: 2 ml Sodium Chloride (Ns Flush) 5 ml IV.FLUSH PRN PRN PRN Reason: flush each lumen during HD Ticagrelor (Brilinta) 90 mg PO BID [facility] Last Admin: 06/05/18 08:41 Dose: 90 mg Allergies Allergy/AdvReac Type Severity Reaction Status Date / Time *MDRO Multi-Drug Resistant AdvReac Intermediate Abdominal Uncoded 05/21/18 00:22 Organism Pain Home Medications Medication Instructions Recorded Confirmed Type aspirin 81 mg PO DAILY 02/20/18 05/21/18 History enalapril maleate 5 mg PO DAILY 02/20/18 05/21/18 History gabapentin 300 mg PO BID 02/20/18 05/21/18 History lisinopril 10 mg PO DAILY 02/20/18 05/21/18 History metoclopramide HCl 5 mg PO TID 02/20/18 05/21/18 History phenytoin sodium extended 200 mg PO BID 02/20/18 05/21/18 History [Phenytek] insulin detemir U-100 [Levemir 34 units SUB-Q DAILY 03/15/18 05/21/18 History U-100 Insulin] Results - Labs CBC & Chem 7: 06/05/18 08:13 06/05/18 08:13 Laboratory Results - last 24 hr 06/04/18 06/05/18 06/05/18 20:19 07:38 08:13 WBC 6.7 RBC 2.77 L Hgb 9.0 L Hct 26.4 L MCV 95.1 MCH 32.5 MCHC 34.2 RDW 15.5 Plt Count 223 MPV 7.3 Neut % (Auto) 69.6 Lymph % (Auto) 15.0 [place] % (Auto) 7.6 Eos % (Auto) 6.9 H Baso % (Auto) 0.9 Neut # (Auto) 4.6 Lymph # (Auto) 1.0 [place] # (Auto) 0.5 Eos # (Auto) 0.5 H Baso # (Auto) 0.1 WBC Differential . Differential Comment Auto diff final Sodium Potassium Chloride Carbon Dioxide Anion Gap BUN Creatinine Estimated GFR POC Glucose 161 H 195 H Random Glucose Calcium Phosphorus Albumin 06/05/18 06/05/18 06/05/18 08:13 11:55 14:03 WBC RBC Hgb Hct MCV MCH MCHC RDW Plt Count MPV Neut % (Auto) Lymph % (Auto) [place] % (Auto) Eos % (Auto) Baso % (Auto) Neut # (Auto) Lymph # (Auto) [place] # (Auto) Eos # (Auto) Baso # (Auto) WBC Differential Differential Comment Sodium 131 L Potassium 5.1 Chloride 95 L Carbon Dioxide 27.4 Anion Gap 9 BUN 59 H Creatinine 7.28 H Estimated GFR 8 L POC Glucose 209 H 179 H Random Glucose 162 H Calcium 7.8 L Phosphorus 6.4 H Albumin 2.3 L 06/05/18 16:42 WBC RBC Hgb Hct MCV MCH MCHC RDW Plt Count MPV Neut % (Auto) Lymph % (Auto) [place] % (Auto) Eos % (Auto) Baso % (Auto) Neut # (Auto) Lymph # (Auto) [place] # (Auto) Eos # (Auto) Baso # (Auto) WBC Differential Differential Comment Sodium Potassium Chloride Carbon Dioxide Anion Gap BUN Creatinine Estimated GFR POC Glucose 203 H Random Glucose Calcium Phosphorus Albumin Microbiology 05/29/18 09:12 Wound - Toe Acid Fast Bacilli Smear - Final No acid fast bacilli seen 05/29/18 09:12 Wound - Toe Mycobacterial Culture - Preliminary No growth in 1 week 05/29/18 09:12 Wound - Toe Fungal Smear - Final No fungal elements seen 05/29/18 09:12 Wound - Toe Fungal Culture - Preliminary No growth in 1 week 05/29/18 09:21 Tissue - Toe Fungal Smear - Final No fungal elements seen 05/29/18 09:21 Tissue - Toe Fungal Culture - Preliminary No growth in 1 week 05/29/18 09:21 Tissue - Toe Acid Fast Bacilli Smear - Final No acid fast bacilli seen 05/29/18 09:21 Tissue - Toe Mycobacterial Culture - Preliminary No growth in 1 week 05/29/18 08:59 Wound - Foot Acid Fast Bacilli Smear - Final No acid fast bacilli seen 05/29/18 08:59 Wound - Foot Mycobacterial Culture - Preliminary No growth in 1 week 05/29/18 08:59 Wound - Foot Fungal Smear - Final No fungal elements seen 05/29/18 08:59 Wound - Foot Fungal Culture - Preliminary No growth in 1 week 05/29/18 09:03 Tissue - Toe Acid Fast Bacilli Smear - Final No acid fast bacilli seen 05/29/18 09:03 Tissue - Toe Mycobacterial Culture - Preliminary No growth in 1 week 05/29/18 09:03 Wound - Toe Fungal Smear - Final No fungal elements seen 05/29/18 09:03 Wound - Toe Fungal Culture - Preliminary No growth in 1 week 05/29/18 09:30 Other Fungal Smear - Final No fungal elements seen 05/29/18 09:30 Other Fungal Culture - Preliminary No growth in 1 week 05/29/18 09:30 Other Acid Fast Bacilli Smear - Final No acid fast bacilli seen 05/29/18 09:30 Other Mycobacterial Culture - Preliminary No growth in 1 week 05/29/18 10:30 Wound - Arm Fungal Smear - Final No fungal elements seen 05/29/18 10:30 Wound - Arm Fungal Culture - Preliminary No growth in 1 week 05/29/18 10:30 Wound - Arm Acid Fast Bacilli Smear - Final No acid fast bacilli seen 05/29/18 10:30 Wound - Arm Mycobacterial Culture - Preliminary No growth in 1 week 05/29/18 10:30 Wound - Arm Acid Fast Bacilli Smear - Final No acid fast bacilli seen 05/29/18 10:30 Wound - Arm Mycobacterial Culture - Preliminary No growth in 1 week 05/29/18 10:30 Wound - Arm Fungal Smear - Final No fungal elements seen 05/29/18 10:30 Wound - Arm Fungal Culture - Preliminary No growth in 1 week - Procedures Left BKA Vascath AVG explantation s/p revision 05/29/18 of R 2nd and 3rd digit stumps Angiogram Permacath x 2 Assessment and Plan - Assessment (1) Osteomyelitis of right foot Code(s): M86.9 - Osteomyelitis, unspecified Status: Acute (2) Osteomyelitis of left foot Code(s): M86.9 - Osteomyelitis, unspecified Status: Acute - Plan Discussed Condition With: 63 year old male Patient examined and evaluated Nurse present bedside Discussed daily dressing changes with nurse RLE cyanosis and early necrosis noted to dorsal foot and posterior heel/achilles Discussed offloading with protective heel boots Will continue to monitor Signing off to Dr. Wynne will have team follow closely
--- NOTE | 2018-06-05 20:42 | P.PNNP ---
Subjective Interval history: Patient seen in the afternoon, feeling better, no SOB. Physical Exam Vital signs: Vital Signs 06/05/18 00:00 06/05/18 08:00 06/05/18 11:00 Temperature 98.0 F 98.0 F Pulse Rate 61 60 Respiratory Rate 17 16 16 Blood Pressure 122/58 L 122/59 L Pulse Oximetry 96 98 06/05/18 15:55 06/05/18 16:00 Temperature 98.1 F Pulse Rate 65 Respiratory Rate 16 16 Blood Pressure 87/43 L Pulse Oximetry 96 Intake & Output 06/05/18 06/05/18 06/06/18 06:59 18:59 06:59 Intake Total 1450 / 1450 Output Total 250 / 250 1999 Balance -250 / -250 -550 / -550 Weight 125.9 kg Intake: IV 250 / 250 Vancomycin Inj 1,000 MG In NS 250 / 250 Inj 250 ML @ 250 mls/hr IV.SIG WITH DIALYSIS [facility] Rx#:[id number] Oral 1200 / 1200 Output: Urine 250 / 250 Hemodialysis Amount 1999 Other: # Voids 4 Date of Last Bowel Movement 06/03/18 # Bowel Movements 1 Narrative: GENERAL: Awake and alert. NAD SKIN: Warm and dry. CARDIOVASCULAR: Regular rate and rhythm. New IJ permacath RESPIRATORY: Breath sounds equal bilaterally. GASTROINTESTINAL: Abdomen soft, non-tender, nondistended. MUSCULOSKELETAL: No cyanosis, or edema. Right lower extremity with MARIBETH. Left upper arm with MARIBETH wrap. Left lower extremity BKA, MARIBETH on. BACK: Nontender without obvious deformity. No CVA tenderness. Assessment and Plan - Assessment (1) ESRD (end stage renal disease) on dialysis Code(s): N18.6 - End stage renal disease; Z99.2 - Dependence on renal dialysis Status: Acute Plan: Patient with end stage renal disease and on HD, 3 times a week. HD was not done yesterday. Patient had air bubble in the arterial port, PermCath changed yesterday, Will do HD today. (2) DM (diabetes mellitus) Code(s): E11.9 - Type 2 diabetes mellitus without complications Status: Chronic Plan: Recommend to maintain blood sugars between 140 mg/dl to 180 mg/dl while hospitalized. (3) Anemia Code(s): D64.9 - Anemia, unspecified Status: Acute Plan: Epogen ordered with dialysis. HGB has been stable, s/p blood transfusions. (4) Sepsis Code(s): A41.9 - Sepsis, unspecified organism Status: Acute Plan: Blood cultures positive for MRSA. Has MRSA Bacteremia, source ? AVG removed; Antibiotics per ID recommendations, renal dose as appropriate (5) Osteomyelitis of left foot Code(s): M86.9 - Osteomyelitis, unspecified Status: Acute Plan: PVD with osteomyelitis Left BKA on . Need to have angiogram of right leg for non healing wounds
[2018-06-06] MEDS ORDERED: Heparin/NS PF Inj 1,000 ML ONE (08:27)
[2018-06-06] MEDS ORDERED: Heparin 10,000 UNITS/10 ML Vial (for IV use) ONE (08:28)
[2018-06-06] MEDS ORDERED: fentaNYL Citrate Inj 100 MCG/2 ML Ampul ONE (08:28)
[2018-06-06] MEDS ORDERED: Lidocaine 2% Inj 50 ML Vial ONE (08:45)
[2018-06-06] MEDS: Insulin Detemir Inj 1,000 UNIT/10 ML Vial SQ SCH (09:08)
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
--- NOTE | 2018-06-06 10:28 | CATHPROC ---
[employer] HIS Report Study Information Study Number Admission Scheduled Start Study Start [id number] May 21 2018 11:11AM 06/06/2018 Jun 06 2018 8:06AM [facility] Service Cath Endovascular Study Admit Source Facility Department Emergency department [facility] - Functional Mental Disability Teacher Physician and Clinical Staff Initial Casper Merrill Store Clerk Chidi Olmos RN Recorder María Millard,OPTICAL SYSTEMS ENGINEER TECH2 Scrub Hosterman, Jordan,RT(R) Procedures Performed Procedure Location (Site) Vessel Name Angiogram (manual) Fem Sup. (left) Femoral Art Angiogram (manual) Fem Sup. (right) Femoral Art Angiogram (manual) PELVIS Angiogram (manual) Popliteal R (R10) Popliteal Angiogram (manual) Tib, Ant. (right) Popliteal Wire insertion Fem Art (left) Femoral Art Equipment Time [employer] Pilot Description Size Mfg Part Number Used/Scraped PERCLOSE, PRO GLIDE CLOSER 09:49 [employer] FR 6 [id number] *[id number] Used DEVICE [id number] 09:17 [employer] WIRE, SPARTACORE 5*300CM 300CM Used *[id number] 08:08 [employer] WIRE, SUPERCORE 190CM Used *[id number] 08:08 ANGIO-DYNAMICS OMNI FLUSH 65CM CATHETER FR 4 Used *[id number] INTRODUCER SET, 08:08 [employer] FR 5 [id number] *[id number] Used MICROPUNCTURE STIFF CXI-4.0-35-135- 09:17 COOK/DORIS CATHETER, FR4 CXI SUPPORT .035 Used P-NS-0 *[id number] CATHETER, CXI SUPPORT 09:35 COOK/DORIS .014 [id number] Used STRAIGHT .014 150CM WIRE, GUIDE APPROACH HYDRO [id number] 09:39 COOK/DORIS 300CM Used ST *[id number] DERMABOND, ADHESIVE SKIN [id number] 10:10 CORDIS/PACER * Used GLUE MINI *[id number] 09:19 [employer] WIRE, CHOICE PT FLOPPY 300CM 300CM Used *[id number] 08:08 [employer] PACK, CCL CUSTOM * Used *[id number] 09:20 CLOUD SYSTEMS 30 JAGRUTI INDEFLATOR Used *[id number] PROBE COVER, STERILE [id number] 08:08 [employer] * Used ULTRASOUND W/ GEL *[id number] 08:08 NAMIC MANIFOLD, 4 PORT * Used *[id number] 09:07 NAMIC TUBING, HIGH PRESSURE 48" 48" Used *[id number] 08:08 [employer]COMED OMNIPAQUE, 300 MG, 150ML 150ML [id number] Used 08:08 [employer] OMNIPAQUE, 300 MG, 50ML 50ML [id number] Used SUTURE, 2-0 VICRYL [CT1] ([id number]) [id number] 08:08 TERUMO MEDICAL SHEATH, FR5 TERUMO (10CM) FR 5 Used *[id number] 09:22 TERUMO MEDICAL/DORIS CATHETER, FR5 ANGLED 100CM FR 5 [id number] *[id number] Used SHEATH, FR6 PINNACLE 09:09 TERUMO MEDICAL/DORIS FR 6 [id number] Used DESTINATION 65CM WIRE, ANGLED GLIDE .035 [id number] 08:08 TERUMO MEDICAL/DORIS 260CM Used 260CM *[id number] Equipment Model, Serial, Lot Number and Expiration Data Description Model Number Serial Number Lot Number Expiration Date CATHETER, FR4 CXI SUPPORT [id number] 02-21-2021 CATHETER, CXI SUPPORT [id number] 05-04-2020 STRAIGHT .014 150CM WIRE, CHOICE PT FLOPPY 300CM [id number] 05-10-2019 WIRE, GUIDE APPROACH HYDRO [id number] 12-21-2020 ST History: Current Medications Medication Dosage/Unit Route Frequency Last Date/Time Taken ASA NORVASC LISINOPRIL Insulin Statins (any) BRILINTA Imdur Neurontin HYDRALAZINE VASOTEC LOPRESSOR History: Allergies Allergy Reaction *MDRO Multi-Drug Resistant Abdominal Pain Organism History: Risk Factors Hypertension Dyslipidemia Yes Yes Peripheral Artery On Dialysis Diabetes Diabetes Therapy Disease History: CV Disease Selection Items Known CAD History: Other Current Smoker No Labs Hgb (g/dl) Hct (%) WBC (l/cumm) Platelets (thousands) 11.60-17.00 35.00-51.00 4.00-11.00 150.00-450.00 9.0 26.4 6.7 223 Glucose (mg/dl) BUN (mg/dl) Creatinine (mg/dl) BUN:Creatinine (1:x) 74.00-106.00 7.00-18.00 0.50-1.30 10.00-20.00 228 59 7.2 8.2 Na (meq/l) K (meq/l) CO2 (mmol/L) Ca (mg/dl) 136.00-145.00 3.50-5.10 21.00-32.00 8.50-10.10 131 5.1 27.4 7.8 CPK-MB (ng/ML) 0.50-3.60 Not Drawn Medication Medication Total Dose (Bolus/Oral) Medication Total Dosage/Unit 1% XYLOCAINE 20 mL HEPARIN 5000 units Medications (Bolus/Oral) Medication Time Given Dosage/Unit Administered By Reason 1% XYLOCAINE 06/06/2018 9:03:19 AM 20 mL Casper Collins 20 mL 1% XYLOCAINE given in lab by Casper Collins in Left Groin via Subcutaneous. Ordered by Casper Collins. HEPARIN 06/06/2018 9:13:43 AM 3000 units Chidi Olmos 3000 units HEPARIN given in lab by Chidi Olmos RN in Right Forearm via Peripheral IV. Ordered by Casper Collins. HEPARIN 06/06/2018 9:30:56 AM 2000 units Chidi Olmos 2000 units HEPARIN given in lab by Chidi Olmos RN in Right Forearm via Peripheral IV. Ordered by Casper Collins. Medication (Drip) Medication Time Given Dosage/Unit Concentration/Unit Diluent (ml) Solution IV Solutions 06/06/2018 8:32:39 AM 0 mL (IV) 500 NaCl .9 IV Solutions given in lab by Chidi Olmos RN in Right Forearm via Peripheral IV. Pump/Drip Flow = 20 ml/hr using NaCl .9. Ordered by Casper Collins. Initial Case Assessment Cardiovascular HR Rhythm NIBP 59 sr 108/42 Circulatory - Right Pulses Dorsalis Pedis Posterior Tibial Femoral 0 d 3 Scale (0,1,2,3,4,d) Circulatory - Left Pulses Dorsalis Pedis Posterior Tibial Femoral 3 Scale (0,1,2,3,4,d) Neurological State Oriented to time-place- Alert Moves all extremities person Respiration - General Respiration Rate SpO2 (%) (B/min) 18 95 Final Case Assessment Cardiovascular HR Rhythm NIBP 61 sr 125/56 Circulatory - Right Pulses Dorsalis Pedis Posterior Tibial Femoral 0 d 3 Scale (0,1,2,3,4,d) Circulatory - Left Pulses Dorsalis Pedis Posterior Tibial Femoral 3 Scale (0,1,2,3,4,d) Neurological State Oriented to time-place- Alert Moves all extremities person Respiration - General Respiration Rate SpO2 (%) (B/min) 11 96 Chronological Log Time Study Chronological Log 8:22:29 Patient arrived via Bed. 8:22:34 Patient Name, D.O.B, / Armband Verified By R.N. 8:25:41 Pre-op and post- op instructions given; patient acknowledges understanding of instructions. 8:31:40 Consent signed by the physician and the patient and verified by the Functional Mental Disability Teacher staff. 8:31:51 Verbal Stimulation=2 Physical Stimulation=2 Airway=2 Respiration=2 TOTAL=8. (0=absent, 1=forbes ited, 2=present) 8:32:06 Presedation assessment performed by Functional Mental Disability Teacher RN. 8:32:09 Patient has been NPO for More than 6Hrs. 8:32:10 Skin Breakdown-MRSA infection in rt foot and left arm, left BKA 8:32:13 Pura Prominences Protected 8:32:14 A # 20 IV was noted in the Forearm (right). Grade = 0 IV Solutions given in lab by Chidi Olmos, HAMIDA in Right Forearm via Peripheral IV. Pump/Drip Fl ow = 20 ml/hr using NaCl 8:32:39 .9. Ordered by Casper Collins. 8:33:03 History and physical on the chart or being dictated. Vitals capture started with the following parameters, Patient=Adult, Interval=5 min, Initial Pre czyjd=376 mmHg, 8:33:10 Deflation Rate=5 mmHg, Cuff placed on Right Arm 8:33:42 Reference ECG taken 8:33:58 HR=59 bpm, PIYO=540/42 mmhg, SpO2=95.0 %, Resp=18 B/min Assessment: Initial Case, HR=59 BPM, Rhythm=sr, DZTB=445/42 mmhg Right Pulses: Shabbir Ped=0, Post Tib=d, Femoral=3 8:34:30 Left Pulses: Femoral=3 Neurological: State=Alert, Ox3, DE DIOS Respiration: Resp=18 B/min, SpO2=95 % 8:38:51 HR=60 bpm, QGPG=147/52 mmhg, SpO2=89.0 %, Resp=19 B/min 8:42:31 Bilateral groins prepped with 2% chlorhexidine, and draped after a 3 minute waiting time. 8:43:52 ZX=163 bpm, TSHI=016/55 mmhg, SpO2=95.0 %, Resp=24 B/min 8:48:03 Pressure channel 2 zeroed. 8:48:55 HR=63 bpm, XSVC=419/47 mmhg, SpO2=94.0 %, Resp=17 B/min 8:52:45 MD paged 8:54:23 HR=60 bpm, UJFW=698/53 mmhg, SpO2=97.0 %, Resp=10 B/min 8:58:53 HR=59 bpm, EAUN=843/49 mmhg, SpO2=97.0 %, Resp=14 B/min 9:02:27 MD arrived. Time Out. Correct patient, correct procedure, correct physician, labs, allergies, and equipment verified with shop laborer 9:03:11 team present. Fire risk assesment completed (see hard stop sheet for coding). Time Out Concu rred by MD and individual staff in procedure. 9:03:17 Case Start 9:03:19 20 mL 1% XYLOCAINE given in lab by Casper Collins in Left Groin via Subcutaneous. Ordered b y Casper Collins. 9:03:54 HR=59 bpm, YQTC=963/54 mmhg, SpO2=98.0 %, Resp=26 B/min 9:04:21 Access site was Left Femoral Artery. Under ultrasound guidance A INTRODUCER SET, MICROPUNCTURE STIFF FR 5 was advanced into the Fem Art (left) using the Percut aneous 9:04:49 technique. 9:05:02 A WIRE, SUPERCORE 190CM was inserted via Fem Art (left). A SHEATH, FR5 TERUMO (10CM) FR 5 was exchanged in the Fem Art (left). This was necessary in orde r to 9:05:04 accomodate a larger catheter. A OMNI FLUSH 65CM CATHETER FR 4 was advanced over a wire. OMNIPAQUE, 300 MG, 150ML 150ML was use d for 9:05:41 injections. 9:06:56 Wire removed 9:07:02 PELVIS angiogram, manually injected. 9:07:08 A WIRE, ANGLED GLIDE .035 260CM 260CM was inserted via Fem Art (left). advanced up and over to the left iliac 9:07:40 Wire removed 9:08:15 Fem Sup. (right) angiogram, manually injected. 9:08:55 HR=59 bpm, HBPN=104/48 mmhg, SpO2=91.0 %, Resp=22 B/min Recorded Pressure: AoAbd, HR=60, Condition=Condition 1 9:09:22 (Descending Abdominal Aorta) AoAbd 146/52/79 9:09:33 Fem Sup. (right) angiogram, manually injected. 9:10:26 Popliteal R (R10) angiogram, manually injected. 9:11:30 Tib, Ant. (right) angiogram, manually injected. 9:13:19 A WIRE, SUPERCORE 190CM was inserted via Fem Art (left). 9:13:43 3000 units HEPARIN given in lab by Chidi Olmos RN in Right Forearm via Peripheral IV. Or dered by Casper Collins. 9:13:54 HR=59 bpm, JZNA=933/56 mmhg, SpO2=95.0 %, Resp=16 B/min 9:14:25 Catheter was removed w/o difficulty A SHEATH, FR6 PINNACLE DESTINATION 65CM FR 6 was exchanged in the Fem Art (left). This was james oliva in order 9:14:31 to accomodate a larger catheter. 9:16:39 Wire removed 9:17:12 A WIRE, SPARTACORE 5*300CM 300CM was inserted via Fem Art (left). A CATHETER, FR4 CXI SUPPORT .035 was advanced over a wire. OMNIPAQUE, 300 MG, 150ML 150ML was us ed for 9:17:22 injections. 9:18:15 Wire removed 9:18:55 HR=59 bpm, LBOI=985/53 mmhg, SpO2=95.0 %, Resp=22 B/min 9:19:14 A WIRE, CHOICE PT FLOPPY 300CM 300CM was inserted via Fem Art (left). After removing the current catheter a CATHETER, FR5 ANGLED 100CM FR 5 was advanced over a WIRE, CHOICE PT 9:22:18 FLOPPY 300CM 300CM. 9:23:54 HR=61 bpm, BPFO=752/51 mmhg, SpO2=93.0 %, Resp=26 B/min 9:26:14 The previous wire was exchanged for a WIRE, ANGLED GLIDE .035 260CM 260CM. After removing the current catheter a CATHETER, FR4 CXI SUPPORT .035 was advanced over a WIRE, A NGLED GLIDE 9:28:06 .035 260CM 260CM. 9:28:54 Wire removed 9:28:55 HR=60 bpm, SJDJ=116/56 mmhg, SpO2=93.0 %, Resp=22 B/min 9:29:55 A WIRE, SPARTACORE 5*300CM 300CM was inserted via Fem Art (left). 9:30:56 2000 units HEPARIN given in lab by Chidi Olmos RN in Right Forearm via Peripheral IV. Or dered by Casper Collins. 9:33:58 HR=59 bpm, VMBD=862/51 mmhg, SpO2=97.0 %, Resp=23 B/min 9:35:25 Wire removed 9:39:00 HR=60 bpm, GUGD=187/47 mmhg, SpO2=91.0 %, Resp=16 B/min 9:40:00 Tib, Ant. (right) angiogram, manually injected. 9:40:14 A WIRE, GUIDE APPROACH HYDRO ST 300CM was inserted via Fem Art (left). 9:41:57 Wire removed 9:42:50 Tib, Ant. (right) angiogram, manually injected. 9:43:59 HR=60 bpm, FWLO=769/49 mmhg, SpO2=96 %, Resp=14 B/min 9:46:30 Catheter was removed w/o difficulty 9:47:11 A WIRE, SUPERCORE 190CM was inserted via Fem Art (left). 9:47:40 6FR sheath pulled back into the abdominal aorta. 9:48:20 Fem Sup. (left) angiogram, manually injected. 9:48:49 Sheath removed; pressure applied to access site. 9:48:55 PERCLOSE, PRO GLIDE CLOSER DEVICE FR 6 placement in the Fem Art (left) 9:48:58 HR=60 bpm, JXGM=156/57 mmhg, SpO2=95.0 %, Resp=18 B/min 9:49:54 Manual pressure held. 9:53:55 HR=59 bpm, YOMF=245/53 mmhg, SpO2=95.0 %, Resp=12 B/min 9:58:45 Right groin access site sutured closed by MD post perclose deplyment. 9:58:58 HR=59 bpm, IZSN=095/53 mmhg, SpO2=96.0 %, Resp=14 B/min 10:02:35 Case End (Physician broke scrub) 10:03:57 HR=60 bpm, FVML=762/57 mmhg, SpO2=94.0 %, Resp=16 B/min 10:05:34 Cine recording checked. 10:08:58 HR=60 bpm, HUDU=237/57 mmhg, SpO2=95.0 %, Resp=6 B/min 10:10:01 Dermabond applied to site. Hemostasis obtained. 10:12:12 Sterile dressing applied to site 10:12:32 No case complications noted. 10:13:37 Bedside Report will be given. 10:14:01 HR=59 bpm, NTDJ=869/56 mmhg, SpO2=96 %, Resp=10 B/min Assessment: Final Case, HR=61 BPM, Rhythm=sr, ISOE=909/56 mmhg Right Pulses: Shabbir Ped=0, Post Tib=d, Femoral=3 10:15:42 Left Pulses: Femoral=3 Neurological: State=Alert, Ox3, [place] DIOS Respiration: Resp=11 B/min, SpO2=96 % 10:19:35 HR=59 bpm, KUIV=943/53 mmhg, SpO2=92 %, Resp=19 B/min 10:24:35 Patient moved to bed 10:26:41 Patient transported to End Study - Contrast Media Used In Study Contrast Total Opened (mL) Total Used (mL) Total Wasted (mL) Omnipaque 300 90 90 0 End Study - Maximum Contrast Load Max Contrast Load (mL) 86.8 End Study - Radiation Exposure Fluoro Time Fluoro Dose (mGy) Cine Dose (uGym2) (minutes) 8.1 226 5892 End Study - Sheaths Sheaths Pulled By Sheath Hold Time (min) Casper Collins End Study - Patient Disposition Complications Transferred To Interventional Outcome No Telemetry Bed unsuccessful
--- NOTE | 2018-06-06 11:08 | P.OP ---
Preoperative Diagnosis: right lower extremity critical limb ischemia with tissue loss Postoperative Diagnosis: Right lower extremity critical limb ischemia with tissue loss Date of procedure: 06/06/18 Procedure: 1. Ultra sound guided access of the left common femoral artery 2. AIF angiogram 3. Right lower extremity 3rd order angiogram 4. Perclose of the left common femoral artery 5. Conscious sedation 6. Radiological supervision and interpretation Anesthesia: other (local with moderate sedation ) Surgeon: Casper Collins MD Estimated blood loss (mL): 2 Operation and Findings: Findings: 1. The infrarenal abdominal aorta, BL ALPHONSE, BL EIA, right ASSISTANT BROKER, SFA, popliteal artery are patent without significant stenosis. 2. The right anterior tibial artery, peroneal artery was noted to be patent proximally. The posterior tibial artery was noted to be occluded. 3. The anterior tibial artery and peroneal artery occlude at the level of the foot. I performed multiple angiograms I was able to identify a small, denuded dorsalis pedis vessel that reconstitute distally. I attempted to cross the occlusion but I was unsuccessful. Description of procedure The patient was taken to the operating room, laid supine on the OR table. After adequate sedation the patient was prepped and draped in the standard sterile fashion. Timeout was called to the members in the OR in agreement. 1% lidocaine was injected in the left groin. Using ultrasound guidance access we placed a 5 Maldivian sheath in the left common femoral artery. A catheter was placed in the infrarenal abdominal aorta and an AIF angiogram was performed. A catheter was placed into the right anterior tibial artery and a right lower extremity third order angiogram was performed. A 6 Mal[place]ian destination sheath was placed with the tip into the right superficial femoral artery. The patient was given 3000 units of heparin. I was able to perform the diagnostic angiography of the right foot. I attempted to cross the dorsalis pedis occlusion unsuccessfully. At this point of our catheter and sheath removed hemostasis was achieved by applying a Perclose device to the left common femoral artery. The patient tolerated the procedure well and was taken to recovery unit in stable condition. Conclusion The patient presents with a right lower extremity critical limb ischemia tissue loss status post toe amputation. He developed signs of poor wound healing and ischemia to the dorsum of the right foot. I performed a diagnostic angiography that showed significant microvascular disease involving the right foot. These lesions are not amenable to endovascular or open techniques. The patient is at high risk for limb loss.
[2018-06-06] MEDS ORDERED: Iohexol 350 MG/ML 100 ML Vial (for Cath Lab) IVCONTRAST ONE (11:42)
[2018-06-06] MEDS: Gabapentin 300 MG Capsule PO SCH ×2 (13:49→20:44)
[2018-06-06] MEDS: Phenytoin Sodium 100 MG Capsule PO SCH ×2 (13:49→20:42)
[2018-06-06] MEDS: Methocarbamol 500 MG Tablet PO SCH ×4 (13:50→20:42)
[2018-06-06] MEDS: Calcitriol 0.25 MCG Capsule PO SCH (13:50)
[2018-06-06] MEDS: Insulin NovoLOG Aspart Correctional Sugar Inj SQ SCH ×4 (14:17→20:51)
[2018-06-06] MEDS: hydrALAZINE 25 MG Tablet PO SCH ×2 (14:18→20:43)
[2018-06-06] MEDS: levoFLOXacin 250 MG Tablet PO SCH (14:18)
[2018-06-06] MEDS: amLODIPine 5 MG Tablet PO SCH (14:19)
[2018-06-06] MEDS: Sodium Chloride 0.9% 2 ML Flush BID IV.FLUSH SCH ×2 (14:19→20:44)
[2018-06-06] MEDS: Senna/Docusate Sodium 8.6/50 MG Tablet PO SCH ×2 (14:19→20:44)
[2018-06-06] MEDS: Metoprolol Tartrate 25 MG Tablet PO SCH ×2 (14:19→20:41)
[2018-06-06] MEDS: Morphine Sulfate Inj 2 MG/ML Vial IV.PUSH PRN ×2 (15:50→20:38)
[2018-06-06] MEDS: Heparin - SQ 10,000 UNITS/ML Vial SQ SCH (20:44)
[2018-06-07] MEDS: Morphine Sulfate Inj 2 MG/ML Vial IV.PUSH PRN ×4 (00:35→22:42)
--- NOTE | 2018-06-07 08:09 | P.PN ---
Subjective Interval history: Follow-up PAD and diabetes mellitus. Did not receive Levemir yesterday. Seen in hemodialysis. Patient has no complaints. Will be discharged to SNF when cleared by vascular and nephrology Physical Exam Vital signs: Vital Signs 06/06/18 12:00 06/06/18 16:00 06/06/18 17:48 Temperature 97.7 F 97.8 F Pulse Rate 61 62 Respiratory Rate 14 16 Blood Pressure 140/65 153/72 H Pulse Oximetry 96 99 96 06/06/18 20:00 06/06/18 23:49 06/07/18 01:40 Temperature 97.7 F 97.5 F L Pulse Rate 71 59 L Respiratory Rate 16 17 18 Blood Pressure 166/73 H 148/68 H Pulse Oximetry 100 96 06/07/18 04:00 Temperature 97.4 F L Pulse Rate 60 Respiratory Rate 17 Blood Pressure 154/70 H Pulse Oximetry 99 Intake & Output 06/06/18 06/07/18 06/07/18 18:59 06:59 18:59 Intake Total 500 / 500 Output Total 225 / 225 Balance 275 / 275 Weight 133.2 kg 133.6 kg Intake: Oral 500 / 500 Output: Urine 225 / 225 Other: Date of Last Bowel Movement 06/03/18 06/03/18 Narrative: GENERAL: Awake and alert. NAD SKIN: Warm and dry. CARDIOVASCULAR: Regular rate and rhythm. New IJ permacath RESPIRATORY: Breath sounds equal bilaterally. GASTROINTESTINAL: Abdomen soft, non-tender, nondistended. MUSCULOSKELETAL: No cyanosis, or edema. Right lower extremity with MARIBETH. Left upper arm with MARIBETH wrap. Left lower extremity BKA, MARIBETH on. BACK: Nontender without obvious deformity. No CVA tenderness. Results - Labs CBC & Chem 7: 06/05/18 08:13 06/05/18 08:13 Laboratory Results - last 24 hr 06/06/18 06/06/18 12:09 18:02 POC Glucose 205 H 170 H - Imaging ITS Impressions Chest CTA 05/21/18 00:00 CONCLUSION: 1. No evidence of pulmonary embolism. 2. Minimal scattered ground-glass densities are noted consistent with minimal pulmonary vascular congestion versus atelectatic changes. 3. Coronary artery calcifications. 4. Tiny bilateral pleural effusions. 5. Splenomegaly. 6. Pneumobilia. 7. 13 mm right thyroid lobe nodule. 8. Degenerative changes throughout the thoracic spine. Chest X-Ray 05/21/18 00:28 CONCLUSION: Small lung volumes with an elevated right hemidiaphragm. Right subclavian bipolar pacer Extremity Arterial Study 05/22/18 00:00 CONCLUSION: 1. There is significant decrease in the ankle-brachial index on the right suggesting severe peripheral vascular disease. The left ankle-brachial index could not be obtained, but the toe brachial index on the left is significantly decreased suggesting severe peripheral vascular disease on the left also. Head CT 05/22/18 00:00 CONCLUSION: 1. Negative CT Head non contrast. . Lower Extremity Ultrasound 05/22/18 00:00 CONCLUSION: 1. Saphenous vein mapping/measurements as described above. Aorta w/Runoff CTA 05/23/18 00:00 CONCLUSION: 1. Patent inflow and outflow bilaterally. 2. Heavily calcified trifurcation vessels limits their patency evaluation. On the right there is possible straight-line flow through the anterior tibial artery and peroneal artery. The posterior tibial artery is clearly occluded. On the left there is a similar appearance. 3. Atrophic kidneys. 4. Splenomegaly. Upper Extremity Ultrasound 05/23/18 00:00 CONCLUSION: 1. Venous mapping as detailed above. Venous Doppler Study 05/23/18 00:00 CONCLUSION: No evidence of deep venous thrombosis. Foot CT 05/28/18 00:00 CONCLUSION: 1. Status post transmetatarsal amputation of the fourth and fifth digits. 2. Status post transphalangeal amputation of the first, second and third digits. 3. Punctate subcutaneous focus of air overlying the dorsal second digit amputation stump with very subtle potential erosive change at the amputation site. 4. Mild diffuse soft tissue swelling overlying the forefoot amputation stump. Foot X-Ray 05/29/18 00:00 CONCLUSION: Status post removal of much of the remaining portions of the second and third proximal phalanges with small bony fragments still seen over these regions. Catheter Placement 06/02/18 00:00 CONCLUSION: 1. Uncomplicated Dialysis catheter placement as above. Central Venous Line 06/04/18 00:00 CONCLUSION: 1. Uncomplicated PermaCath replacement as above. - Procedures Left BKA Vascath AVG explantation s/p revision 05/29/18 of R 2nd and 3rd digit stumps Angiogram x 2 Permacath x 2 Assessment and Plan - Assessment (1) Chest pain Code(s): R07.9 - Chest pain, unspecified Status: Acute (2) ESRD (end stage renal disease) on dialysis Code(s): N18.6 - End stage renal disease; Z99.2 - Dependence on renal dialysis Status: Acute (3) DM (diabetes mellitus) Code(s): E11.9 - Type 2 diabetes mellitus without complications Status: Chronic - Plan -MRSA SEPSIS - source is possible LUE AVG infection and or multiple diabetic foot wounds with osteomyelitis. Repeat blood cultures negative. cont abx vancomycin w dialysis stop date 07/09/18, s/p avg explantation and amputations, cxs especially from lower extremity with MRSA and Enterococcus faecalis and Enterobacter cloacae - Levaquin added for 10 days -AVF infection/ pseudoaneurysm, malfunction, s/p vas cath placement by IR and graft explantation by vascular -OSTEOMYELITIS LEFT FOOT s/p L BKA 05/27/18 - cont wound care and pt, iv abx per ID. -R FOOT NONHEALING TOE STUMP WOUNDs w EXPOSED BONE - s/p revision 05/29/18 of R 2nd and 3rd digit stumps in OR per podiatry. Path with OM involving r 3rd prox phalanx dw ID, per podiatry all infected bones removed -PVD s/p angiogram 05/24/18 w both R and L Posterior tibial artery occlusion and severe microvascular dz of both L and R feet. Because of critical limb ischemia, repeat angiogram was performed which showed lesions not amenable to endovascular or open techniques. The patient is at high risk for limb loss. Patient aware cont statin, aspirin and Brilinta -ESRD on dialysis chronic cont as per nephrology, infected avg management as above. New permacath by IR. Per cardiology Brilinta cannot be stopped -DM II insulin dependent with diabetic peripheral neuropathy, nephropathy. Improving continue Levemir 26 units with sliding scale, -HTN cont norvasc added hydralazine for better control. Improved -DYSLIPIDEMIA cont statin -ATYPICAL CP w no acs, non cardiac trop elevation, cardiology following -ACUTE METABOLIC ENCEPHALOPATHY - resolving -SEIZURE DO - stable on home meds -THROMBOCYTOPENIA - improving -OBESITY BMI 37 - diet activity when stable -ANEMIA w drop in HH secondary to acute blood loss from surgery, prob has chronic anemia due to ckd, will monitor, transfuse prn keep hemoglobin at least 8, epo per nephrology. Improved after 3 units of packed RBC. Hemoccult stools discussed with nursing again -Constipation. Patient on bowel regimen. Nursing to provide as needed medication. DVT PROPHYLAXIS - scd and SQ Heparin DISPO - planning for rehab Discharge Planning: Discharge when cleared by Renal and Vasc. (1) Chest pain Qualifiers: Chest pain type: other chest pain Qualified Code(s): R07.89 - Other chest pain; R07.8 - Other chest pain
[2018-06-07] MEDS: Insulin Detemir Inj 1,000 UNIT/10 ML Vial SQ SCH (09:02)
[2018-06-07] MEDS: hydrALAZINE 25 MG Tablet PO SCH ×2 (09:08→20:49)
[2018-06-07] MEDS: Metoprolol Tartrate 25 MG Tablet PO SCH ×2 (09:09→20:48)
--- NOTE | 2018-06-07 11:10 | P.DS ---
Date of admission: 05/21/18 11:11 Primary care physician: No Primary Care Physician Brief History from admission: This is a 63-year-old male with a PMH of HTN, Hyperlipidemia, ESRD on HD T// and CAD s/p Stent who was brought to the ER by EMS for c/o chest pain. Recent admit 02/20-02/23/18 for NSTEMI w/ hypotension and bradycardia, taken emergently to Cath s/p Stent to Left OM and d/c'd on ASA/Brilinta, also underwent Pacemaker Placement 02/22/18 and following w/ Dr. Villarreal. Per patient, had sudden onset of stabbing chest pain earlier tonight, pain is severe, 04/13, w/ radiation to LUE, associated w/ SOB and diaphoresis. S/p ASA and NTG by EMS w/ no improvement. On arrival, BP 137/61, HR 80, O2 sat 99% on 2L NC, Afebrile. CBC essentially unremarkable. Chemistry at baseline. Troponin negative. BNP 254. CXR with elevated right hemidiaphragm, right subclavian bipolar pacer. DS: Diagnosis - Discharge Diagnosis (1) Chest pain Status: Acute (2) ESRD (end stage renal disease) on dialysis Status: Acute (3) DM (diabetes mellitus) Status: Chronic DS: Medications - Discharge Medications Prescriptions: amlodipine [Norvasc] 10 mg PO DAILY #30 tab calcitriol [Rocaltrol] 0.25 mcg PO DAILY #30 cap hydralazine 25 mg PO BID #60 tab isosorbide mononitrate 30 mg PO DAILY #30 tab levofloxacin 250 mg PO DAILY #2 tab metoprolol tartrate 25 mg PO BID #60 tab DS: Summary Hospital Course: -MRSA SEPSIS - source is possible LUE AVG infection and or multiple diabetic foot wounds with osteomyelitis. Repeat blood cultures negative. cont abx vancomycin w dialysis stop date 07/09/18, s/p avg explantation and amputations, cxs especially from lower extremity with MRSA and Enterococcus faecalis and Enterobacter cloacae - Levaquin added for 10 days -AVF infection/ pseudoaneurysm, malfunction, s/p vas cath placement by IR and graft explantation by vascular -OSTEOMYELITIS LEFT FOOT s/p L BKA 05/27/18 - cont wound care and pt, iv abx per ID. -R FOOT NONHEALING TOE STUMP WOUNDs w EXPOSED BONE - s/p revision 05/29/18 of R 2nd and 3rd digit stumps in OR per podiatry. Path with OM involving r 3rd prox phalanx dw ID, per podiatry all infected bones removed -PVD s/p angiogram 05/24/18 w both R and L Posterior tibial artery occlusion and severe microvascular dz of both L and R feet. Because of critical limb ischemia, repeat angiogram was performed which showed lesions not amenable to endovascular or open techniques. The patient is at high risk for limb loss. Patient aware he will likely need additional surgery. Cont statin, aspirin and Brilinta -ESRD on dialysis chronic cont as per nephrology, infected avg management as above. New permacath by IR. Per cardiology Brilinta cannot be stopped -DM II insulin dependent with diabetic peripheral neuropathy, nephropathy. Improving continue Levemir 26 units with sliding scale, -HTN cont norvasc added hydralazine for better control. Improved -DYSLIPIDEMIA cont statin -ATYPICAL CP w no acs, non cardiac trop elevation, cardiology following -ACUTE METABOLIC ENCEPHALOPATHY - resolving -SEIZURE DO - stable on home meds -THROMBOCYTOPENIA - improving -OBESITY BMI 37 - diet activity when stable -ANEMIA w drop in HH secondary to acute blood loss from surgery, prob has chronic anemia due to ckd, will monitor, transfuse prn keep hemoglobin at least 8, epo per nephrology. Improved after 3 units of packed RBC. Hemoccult stools discussed with nursing again -Constipation. Patient on bowel regimen. Nursing to provide as needed medication. DVT PROPHYLAXIS - scd and SQ Heparin DISPO - planning for rehab - Time Spent with Patient Total time spent providing and/or coordinating discharge services: Greater than 30 minutes - Quality: VTE Deep Vein Thrombosis/Pulmonary Embolism Present on Admission: No Exam Vital signs: Vital Signs 06/06/18 12:00 06/06/18 16:00 06/06/18 17:48 Temperature 97.7 F 97.8 F Pulse Rate 61 62 Respiratory Rate 14 16 Blood Pressure 140/65 153/72 H Pulse Oximetry 96 99 96 06/06/18 20:00 06/06/18 23:49 06/07/18 01:40 Temperature 97.7 F 97.5 F L Pulse Rate 71 59 L Respiratory Rate 16 17 18 Blood Pressure 166/73 H 148/68 H Pulse Oximetry 100 96 06/07/18 04:00 Temperature 97.4 F L Pulse Rate 60 Respiratory Rate 17 Blood Pressure 154/70 H Pulse Oximetry 99 Intake & Output 06/06/18 06/07/18 06/07/18 18:59 06:59 18:59 Intake Total 500 / 500 Output Total 225 / 225 Balance 275 / 275 Weight 133.2 kg 133.6 kg Intake: Oral 500 / 500 Output: Urine 225 / 225 Other: Date of Last Bowel Movement 06/03/18 06/03/18 Narrative: GENERAL: Awake and alert. NAD SKIN: Warm and dry. CARDIOVASCULAR: Regular rate and rhythm. New IJ permacath RESPIRATORY: Breath sounds equal bilaterally. GASTROINTESTINAL: Abdomen soft, non-tender, nondistended. MUSCULOSKELETAL: No cyanosis, or edema. Right lower extremity with MARIBETH. Left upper arm with MARIBETH wrap. Left lower extremity BKA, MARIBETH on. BACK: Nontender without obvious deformity. No CVA tenderness. Results Procedures completed during hospitalization: Left BKA Vascath AVG explantation s/p revision 05/29/18 of R 2nd and 3rd digit stumps Angiogram x 2 Permacath x 2 Completed studies during hospitalization: Pending at discharge 05/27/18 08:54 Surgical [PTH] Routine 05/29/18 09:58 Surgical [PTH] Routine Labs on day of discharge: Labs from last 24 hours 06/06/18 06/06/18 18:02 12:09 POC Glucose 170 H 205 H Preliminary micro results at discharge 05/29/18 09:12 Mycobacterial Culture - Preliminary Wound - Toe No growth in 1 week 05/29/18 09:12 Fungal Culture - Preliminary Wound - Toe No growth in 1 week 05/29/18 09:21 Fungal Culture - Preliminary Tissue - Toe No growth in 1 week 05/29/18 09:21 Mycobacterial Culture - Preliminary Tissue - Toe No growth in 1 week 05/29/18 08:59 Mycobacterial Culture - Preliminary Wound - Foot No growth in 1 week 05/29/18 08:59 Fungal Culture - Preliminary Wound - Foot No growth in 1 week 05/29/18 09:03 Mycobacterial Culture - Preliminary Tissue - Toe No growth in 1 week 05/29/18 09:03 Fungal Culture - Preliminary Wound - Toe No growth in 1 week 05/29/18 09:30 Fungal Culture - Preliminary Other No growth in 1 week 05/29/18 09:30 Mycobacterial Culture - Preliminary Other No growth in 1 week 05/29/18 10:30 Fungal Culture - Preliminary Wound - Arm No growth in 1 week 05/29/18 10:30 Mycobacterial Culture - Preliminary Wound - Arm No growth in 1 week 05/29/18 10:30 Mycobacterial Culture - Preliminary Wound - Arm No growth in 1 week 05/29/18 10:30 Fungal Culture - Preliminary Wound - Arm No growth in 1 week - Impressions ITS Impressions Chest CTA 05/21/18 00:00 CONCLUSION: 1. No evidence of pulmonary embolism. 2. Minimal scattered ground-glass densities are noted consistent with minimal pulmonary vascular congestion versus atelectatic changes. 3. Coronary artery calcifications. 4. Tiny bilateral pleural effusions. 5. Splenomegaly. 6. Pneumobilia. 7. 13 mm right thyroid lobe nodule. 8. Degenerative changes throughout the thoracic spine. Chest X-Ray 05/21/18 00:28 CONCLUSION: Small lung volumes with an elevated right hemidiaphragm. Right subclavian bipolar pacer Extremity Arterial Study 05/22/18 00:00 CONCLUSION: 1. There is significant decrease in the ankle-brachial index on the right suggesting severe peripheral vascular disease. The left ankle-brachial index could not be obtained, but the toe brachial index on the left is significantly decreased suggesting severe peripheral vascular disease on the left also. Head CT 05/22/18 00:00 CONCLUSION: 1. Negative CT Head non contrast. . Lower Extremity Ultrasound 05/22/18 00:00 CONCLUSION: 1. Saphenous vein mapping/measurements as described above. Aorta w/Runoff CTA 05/23/18 00:00 CONCLUSION: 1. Patent inflow and outflow bilaterally. 2. Heavily calcified trifurcation vessels limits their patency evaluation. On the right there is possible straight-line flow through the anterior tibial artery and peroneal artery. The posterior tibial artery is clearly occluded. On the left there is a similar appearance. 3. Atrophic kidneys. 4. Splenomegaly. Upper Extremity Ultrasound 05/23/18 00:00 CONCLUSION: 1. Venous mapping as detailed above. Venous Doppler Study 05/23/18 00:00 CONCLUSION: No evidence of deep venous thrombosis. Foot CT 05/28/18 00:00 CONCLUSION: 1. Status post transmetatarsal amputation of the fourth and fifth digits. 2. Status post transphalangeal amputation of the first, second and third digits. 3. Punctate subcutaneous focus of air overlying the dorsal second digit amputation stump with very subtle potential erosive change at the amputation site. 4. Mild diffuse soft tissue swelling overlying the forefoot amputation stump. Foot X-Ray 05/29/18 00:00 CONCLUSION: Status post removal of much of the remaining portions of the second and third proximal phalanges with small bony fragments still seen over these regions. Catheter Placement 06/02/18 00:00 CONCLUSION: 1. Uncomplicated Dialysis catheter placement as above. Central Venous Line 06/04/18 00:00 CONCLUSION: 1. Uncomplicated PermaCath replacement as above. Discharge Plan - Discharge Disposition Patient Disposition: Discharge to SNF - Discharge Condition Condition: Stable - Discharge Details Discharge Comment: dc when cleared by renal and vascular surg - Physicians Team Primary Care Provider: Primary Care Laura Aguilar Attending Provider: James Gonzalez Other Providers: Jaden Villarreal MD ; Lorne Pradhan ; Rolan Nielsen MD ; Moni Alvarado MD ; Wesley Maynard MD ; Casie Rueda DPM ; Radha Soriano MD ; Casper Collins MD ; [facility],Agency ; [facility], Agency ; [facility],[place]
[2018-06-07] MEDS: Vancomycin Inj 1,000 MG in Sodium Chlor 0.9% Inj 250 ML IV.SIG SCH (11:30)
[2018-06-07] MEDS: Methocarbamol 500 MG Tablet PO SCH ×4 (13:47→20:47)
[2018-06-07] MEDS: Senna/Docusate Sodium 8.6/50 MG Tablet PO SCH ×2 (13:47→20:58)
[2018-06-07] MEDS: Gabapentin 300 MG Capsule PO SCH ×2 (13:47→20:48)
[2018-06-07] MEDS: Calcitriol 0.25 MCG Capsule PO SCH (13:48)
[2018-06-07] MEDS: Heparin - SQ 10,000 UNITS/ML Vial SQ SCH ×2 (13:48→20:50)
[2018-06-07] MEDS: levoFLOXacin 250 MG Tablet PO SCH (13:49)
[2018-06-07] MEDS: amLODIPine 5 MG Tablet PO SCH (13:49)
[2018-06-07] MEDS: Phenytoin Sodium 100 MG Capsule PO SCH ×2 (13:50→20:47)
[2018-06-07] MEDS: Insulin NovoLOG Aspart Correctional Sugar Inj SQ SCH ×4 (13:50→20:57)
[2018-06-07] MEDS: Sodium Chloride 0.9% 2 ML Flush BID IV.FLUSH SCH ×2 (13:51→20:56)
--- NOTE | 2018-06-07 13:52 | P.PNVS ---
Subjective Subjective/Hospital Course: Pt w/o complaints, pain controlled Objective Vital Signs / I&O: Vital Signs 06/06/18 16:00 06/06/18 17:48 06/06/18 20:00 Temperature 97.8 F 97.7 F Pulse Rate 62 71 Respiratory Rate 16 16 Blood Pressure 153/72 H 166/73 H Pulse Oximetry 99 96 100 06/06/18 23:49 06/07/18 01:40 06/07/18 04:00 Temperature 97.5 F L 97.4 F L Pulse Rate 59 L 60 Respiratory Rate 17 18 17 Blood Pressure 148/68 H 154/70 H Pulse Oximetry 96 99 Intake & Output 06/06/18 06/07/18 06/07/18 18:59 06:59 18:59 Intake Total 500 / 500 250 / 250 Output Total 225 / 225 3000 / 3000 Balance 275 / 275 -2750 / -2750 Weight 133.2 kg 133.6 kg Intake: IV 250 / 250 Vancomycin Inj 1,000 MG In NS 250 / 250 Inj 250 ML @ 250 mls/hr IV.SIG WITH DIALYSIS SKIP Rx#:[id number] Oral 500 / 500 Output: Urine 225 / 225 Hemodialysis Amount 3000 / 3000 Other: Date of Last Bowel Movement 06/03/18 06/03/18 Physical Exam: L BKA wound CDI L Arm wound CDI Right groin CDI, no hematoma Laboratory Results - last 24 hr 06/06/18 06/07/18 18:02 11:50 POC Glucose 170 H 177 H Assessment and Plan - Assessment (1) Fever Code(s): R50.9 - Fever, unspecified Status: Acute - Plan s/p LUE AVG explantation, LBKA and RLE angiogram Right foot stable since previous exam patient is at high risk for RLE limb loss Stable for DC from vascular standpoint plan FU in 2 weeks with vein mapping to plan AVF creation (1) Fever Qualifiers: Fever type: unspecified Qualified Code(s): R50.9 - Fever, unspecified
--- NOTE | 2018-06-07 15:27 | P.PNNP ---
Subjective Interval history: Patient sleeping, hemodialysis today, tolerated well. Discharge plans underway. <Christa Velasquez - Last Filed: 06/07/18 15:23> Physical Exam Vital signs: Vital Signs 06/06/18 16:00 06/06/18 17:48 06/06/18 20:00 Temperature 97.8 F 97.7 F Pulse Rate 62 71 Respiratory Rate 16 16 Blood Pressure 153/72 H 166/73 H Pulse Oximetry 99 96 100 06/06/18 23:49 06/07/18 01:40 06/07/18 04:00 Temperature 97.5 F L 97.4 F L Pulse Rate 59 L 60 Respiratory Rate 17 18 17 Blood Pressure 148/68 H 154/70 H Pulse Oximetry 96 99 06/07/18 08:00 Temperature 97.5 F L Pulse Rate 60 Respiratory Rate 18 Blood Pressure 139/62 Pulse Oximetry 99 Intake & Output 06/06/18 06/07/18 06/07/18 18:59 06:59 18:59 Intake Total 500 / 500 250 / 250 Output Total 225 / 225 3000 / 3000 Balance 275 / 275 -2750 / -2750 Weight 133.2 kg 133.6 kg Intake: IV 250 / 250 Vancomycin Inj 1,000 MG In NS 250 / 250 Inj 250 ML @ 250 mls/hr IV.SIG WITH DIALYSIS [facility] Rx#:[id number] Oral 500 / 500 Output: Urine 225 / 225 Hemodialysis Amount 3000 / 3000 Other: Date of Last Bowel Movement 06/03/18 06/03/18 Narrative: GENERAL: Awake and alert. NAD SKIN: Warm and dry. CARDIOVASCULAR: Regular rate and rhythm. New IJ permacath RESPIRATORY: Breath sounds equal bilaterally. GASTROINTESTINAL: Abdomen soft, non-tender, nondistended. MUSCULOSKELETAL: No cyanosis, or edema. Right lower extremity with MARIBETH. Left upper arm with MARIBETH wrap. Left lower extremity BKA, MARIBETH on. BACK: Nontender without obvious deformity. No CVA tenderness. <Christa Velasquez - Last Filed: 06/07/18 15:23> Vital signs: Vital Signs 06/07/18 20:00 06/08/18 00:00 06/08/18 04:00 Temperature 98.0 F 98.2 F 98.0 F Pulse Rate 66 63 60 Respiratory Rate 20 19 19 Blood Pressure 161/69 H 129/59 L 111/51 L Pulse Oximetry 96 98 97 12/05/18 08:00 06/08/18 12:00 Temperature 97.6 F 98.1 F Pulse Rate 60 68 Respiratory Rate 16 17 Blood Pressure 132/63 122/56 L Pulse Oximetry 99 98 Intake & Output 06/07/18 06/08/18 06/08/18 18:59 06:59 18:59 Intake Total 250 / 250 700 / 700 Output Total 3000 / 3000 Balance -2750 / -2750 700 / 700 Weight 133.6 kg Intake: IV 250 / 250 Vancomycin Inj 1,000 MG In NS 250 / 250 Inj 250 ML @ 250 mls/hr IV.SIG WITH DIALYSIS SKIP Rx#:[id number] Oral 700 / 700 Output: Hemodialysis Amount 3000 / 3000 Other: Date of Last Bowel Movement 06/03/18 06/06/18 <Moni Alvarado - Last Filed: 06/08/18 18:15> Assessment and Plan - Assessment (1) ESRD (end stage renal disease) on dialysis Code(s): N18.6 - End stage renal disease; Z99.2 - Dependence on renal dialysis Status: Acute Plan: Patient with end stage renal disease on HD TTS. Epogen with dialysis. MRSA in graft, Excision of AVG. Will need to continue antibiotics for 6 weeks as per ID. Cleared per vascular for discharge, will need follow up outpatient for AVF creation. HD for UF of 3 liters. (2) DM (diabetes mellitus) Code(s): E11.9 - Type 2 diabetes mellitus without complications Status: Chronic Plan: Recommend to maintain blood sugars between 140 mg/dl to 180 mg/dl while hospitalized. (3) Anemia Code(s): D64.9 - Anemia, unspecified Status: Acute Plan: Epogen ordered with dialysis. HGB has been stable, s/p blood transfusions. (4) Sepsis Code(s): A41.9 - Sepsis, unspecified organism Status: Acute Plan: Blood cultures positive for MRSA. Has MRSA Bacteremia, source ? AVG removed; Antibiotics per ID recommendations, renal dose as appropriate (5) Osteomyelitis of left foot Code(s): M86.9 - Osteomyelitis, unspecified Status: Acute Plan: PVD with osteomyelitis Left BKA on . Need to have angiogram of right leg for non healing wounds <Christa Velasquez - Last Filed: 06/07/18 15:23> - Assessment (1) ESRD (end stage renal disease) on dialysis Code(s): N18.6 - End stage renal disease; Z99.2 - Dependence on renal dialysis Status: Acute Plan: Patient seen and examined, agree with above. HD done today, Continue antibiotics.Awaiting placement in SNF. (2) DM (diabetes mellitus) Code(s): E11.9 - Type 2 diabetes mellitus without complications Status: Chronic (3) Anemia Code(s): D64.9 - Anemia, unspecified Status: Acute (4) Sepsis Code(s): A41.9 - Sepsis, unspecified organism Status: Acute (5) Osteomyelitis of left foot Code(s): M86.9 - Osteomyelitis, unspecified Status: Acute <Moni Alvarado - Last Filed: 06/08/18 18:15>
[2018-06-08] MEDS: Morphine Sulfate Inj 2 MG/ML Vial IV.PUSH PRN ×2 (03:27→08:18)
[2018-06-08] MEDS: Insulin Detemir Inj 1,000 UNIT/10 ML Vial SQ SCH (08:19)
[2018-06-08] MEDS: Insulin NovoLOG Aspart Correctional Sugar Inj SQ SCH ×2 (08:19→12:55)
--- NOTE | 2018-06-08 09:03 | P.PNVS ---
Subjective Subjective/Hospital Course: Pt w/o complaints, pain controlled Objective Vital Signs / I&O: Vital Signs 06/07/18 16:00 06/07/18 20:00 06/08/18 00:00 Temperature 98.2 F 98.0 F 98.2 F Pulse Rate 60 66 63 Respiratory Rate 18 20 19 Blood Pressure 129/61 161/69 H 129/59 L Pulse Oximetry 98 96 98 06/08/18 04:00 Temperature 98.0 F Pulse Rate 60 Respiratory Rate 19 Blood Pressure 111/51 L Pulse Oximetry 97 Intake & Output 06/07/18 06/08/18 06/08/18 18:59 06:59 18:59 Intake Total 250 / 250 700 / 700 Output Total 3000 / 3000 Balance -2750 / -2750 700 / 700 Weight 133.6 kg Intake: IV 250 / 250 Vancomycin Inj 1,000 MG In NS 250 / 250 Inj 250 ML @ 250 mls/hr IV.SIG WITH DIALYSIS SKIP Rx#:[id number] Oral 700 / 700 Output: Hemodialysis Amount 3000 / 3000 Other: Date of Last Bowel Movement 06/03/18 06/06/18 Physical Exam: Left BKA stump CDI and healing appropriately Left foot wound stable Laboratory Results - last 24 hr 06/06/18 06/07/18 06/07/18 20:47 11:50 20:51 POC Glucose 261 H 177 H 223 H 06/08/18 07:54 POC Glucose 150 H Assessment and Plan - Assessment (1) Fever Code(s): R50.9 - Fever, unspecified Status: Acute - Plan s/p LUE AVG explantation, LBKA and RLE angiogram Stable for DC from vascular surgery standpoint FU appointment scheduled for patient (1) Fever Qualifiers: Fever type: unspecified Qualified Code(s): R50.9 - Fever, unspecified
[2018-06-08] MEDS: Methocarbamol 500 MG Tablet PO SCH (10:55)
[2018-06-08] MEDS: levoFLOXacin 250 MG Tablet PO SCH (10:55)
[2018-06-08] MEDS: Phenytoin Sodium 100 MG Capsule PO SCH (10:55)
[2018-06-08] MEDS: hydrALAZINE 25 MG Tablet PO SCH (10:55)
[2018-06-08] MEDS: Metoprolol Tartrate 25 MG Tablet PO SCH (10:55)
[2018-06-08] MEDS: amLODIPine 5 MG Tablet PO SCH (10:55)
[2018-06-08] MEDS: Heparin - SQ 10,000 UNITS/ML Vial SQ SCH (10:56)
[2018-06-08] MEDS: Gabapentin 300 MG Capsule PO SCH (10:57)
[2018-06-08] MEDS: Sodium Chloride 0.9% 2 ML Flush BID IV.FLUSH SCH (10:57)
[2018-06-08] MEDS: Senna/Docusate Sodium 8.6/50 MG Tablet PO SCH (10:57)
--- NOTE | 2018-06-08 11:03 | P.PNIM ---
Subjective Interval history: in no acute distress. pain is moderate. no fever. no new complaints. d/w the RN and no acute issues over night. Physical Exam Vital signs: Vital Signs 06/07/18 16:00 06/07/18 20:00 06/08/18 00:00 Temperature 98.2 F 98.0 F 98.2 F Pulse Rate 60 66 63 Respiratory Rate 18 20 19 Blood Pressure 129/61 161/69 H 129/59 L Pulse Oximetry 98 96 98 06/08/18 04:00 06/08/18 08:00 Temperature 98.0 F 97.6 F Pulse Rate 60 60 Respiratory Rate 19 16 Blood Pressure 111/51 L 132/63 Pulse Oximetry 97 99 Intake & Output 06/07/18 06/08/18 06/08/18 18:59 06:59 18:59 Intake Total 250 / 250 700 / 700 Output Total 3000 / 3000 Balance -2750 / -2750 700 / 700 Weight 133.6 kg Intake: IV 250 / 250 Vancomycin Inj 1,000 MG In NS 250 / 250 Inj 250 ML @ 250 mls/hr IV.SIG WITH [facility] Rx#:[id number] Oral 700 / 700 Output: Hemodialysis Amount 3000 / 3000 Other: Date of Last Bowel Movement 06/03/18 06/06/18 - Constitutional no acute distress - Routine Respiratory Exam Present: CTA bilaterally - Routine Cardiovascular Exam Present: RRR - Routine Abdominal Exam Present: soft - Routine Extremities Exam Comments: s/p left BKA. - Routine Neurological Exam Present: alert, oriented X3 Results - Labs CBC & Chem 7: 06/05/18 08:13 06/05/18 08:13 Laboratory Results - last 24 hr 06/06/18 06/07/18 06/07/18 20:47 11:50 20:51 POC Glucose 261 H 177 H 223 H 06/08/18 07:54 POC Glucose 150 H - Procedures 1. Ultra sound guided access of the left common femoral artery 2. AIF angiogram 3. Right lower extremity 3rd order angiogram 4. Perclose of the left common femoral artery Explantation of infected left upper extremity AV graft Left below-knee amputation 1. Right second digit proximal phalanx resection. 2. Right second digit bone biopsy. 3. Right third digit proximal phalanx resection. 4. Right third digit bone biopsy Assessment and Plan - Assessment (1) Chest pain Code(s): R07.9 - Chest pain, unspecified Status: Acute (2) ESRD (end stage renal disease) on dialysis Code(s): N18.6 - End stage renal disease; Z99.2 - Dependence on renal dialysis Status: Acute (3) DM (diabetes mellitus) Code(s): E11.9 - Type 2 diabetes mellitus without complications Status: Chronic - Plan -MRSA SEPSIS - source is possible LUE AVG infection and or multiple diabetic foot wounds with osteomyelitis. Repeat blood cultures negative. cont abx vancomycin w dialysis stop date 07/09/18, s/p avg explantation and amputations, cxs especially from lower extremity with MRSA and Enterococcus faecalis and Enterobacter cloacae - Levaquin added for 10 days -AVF infection/ pseudoaneurysm, malfunction, s/p vas cath placement by IR and graft explantation by vascular -OSTEOMYELITIS LEFT FOOT s/p L BKA 05/27/18 - cont wound care and pt, iv abx per ID. -R FOOT NONHEALING TOE STUMP WOUNDs w EXPOSED BONE - s/p revision 05/29/18 of R 2nd and 3rd digit stumps in OR per podiatry. Path with OM involving r 3rd prox phalanx dw ID, per podiatry all infected bones removed -PVD s/p angiogram 05/24/18 w both R and L Posterior tibial artery occlusion and severe microvascular dz of both L and R feet. Because of critical limb ischemia, repeat angiogram was performed which showed lesions not amenable to endovascular or open techniques. The patient is at high risk for limb loss. Patient aware cont statin, aspirin and Brilinta -ESRD on dialysis chronic cont as per nephrology, infected avg management as above. New permacath by IR. Per cardiology Brilinta cannot be stopped -DM II insulin dependent with diabetic peripheral neuropathy, nephropathy. Improving continue Levemir 26 units with sliding scale, -HTN cont norvasc added hydralazine for better control. Improved -DYSLIPIDEMIA cont statin -ATYPICAL CP w no acs, non cardiac trop elevation-evaluated by cardiology. -ACUTE METABOLIC ENCEPHALOPATHY - resolving -SEIZURE DO - stable on home meds -THROMBOCYTOPENIA - improving -OBESITY BMI 37 - diet activity when stable -ANEMIA w drop in HH secondary to acute blood loss from surgery, prob has chronic anemia due to ckd, will monitor, transfuse prn keep hemoglobin at least 8, epo per nephrology. Improved after 3 units of packed RBC. -Constipation. Patient on bowel regimen. Nursing to provide as needed medication. DVT PROPHYLAXIS - scd and SQ Heparin DISPO - planning for rehab Discharge Planning: rehab when authorization has been obtained. f/u; pcp,vascular surgery, podiatry, nephrology. d/w the patient,RN and case management. time spent 35 min. (1) Chest pain Qualifiers: Chest pain type: other chest pain Qualified Code(s): R07.89 - Other chest pain; R07.8 - Other chest pain
[2018-06-08] MEDS: Calcitriol 0.25 MCG Capsule PO SCH (11:07)
--- NOTE | 2018-06-08 11:33 | P.PNNP ---
Subjective Interval history: Patient is doing well. Reports that last night he was not able to sleep secondary to increased pain. Plan for discharge to SNF today. <Christa Velasquez - Last Filed: 06/08/18 15:40> Physical Exam Vital signs: Vital Signs 06/07/18 16:00 06/07/18 20:00 06/08/18 00:00 Temperature 98.2 F 98.0 F 98.2 F Pulse Rate 60 66 63 Respiratory Rate 18 20 19 Blood Pressure 129/61 161/69 H 129/59 L Pulse Oximetry 98 96 98 06/08/18 04:00 06/08/18 08:00 Temperature 98.0 F 97.6 F Pulse Rate 60 60 Respiratory Rate 19 16 Blood Pressure 111/51 L 132/63 Pulse Oximetry 97 99 Intake & Output 06/07/18 06/08/18 06/08/18 18:59 06:59 18:59 Intake Total 250 / 250 700 / 700 Output Total 3000 / 3000 Balance -2750 / -2750 700 / 700 Weight 133.6 kg Intake: IV 250 / 250 Vancomycin Inj 1,000 MG In NS 250 / 250 Inj 250 ML @ 250 mls/hr IV.SIG WITH [facility] Rx#:[id number] Oral 700 / 700 Output: Hemodialysis Amount 3000 / 3000 Other: Date of Last Bowel Movement 06/03/18 06/06/18 Narrative: GENERAL: Awake and alert. NAD SKIN: Warm and dry. CARDIOVASCULAR: Regular rate and rhythm. New IJ permacath RESPIRATORY: Breath sounds equal bilaterally. GASTROINTESTINAL: Abdomen soft, non-tender, nondistended. MUSCULOSKELETAL: No cyanosis, or edema. Right lower extremity with MARIBETH. Left upper arm with MARIBETH wrap. Left lower extremity BKA, MARIBETH on. BACK: Nontender without obvious deformity. No CVA tenderness. <Christa Velasquez - Last Filed: 06/08/18 15:40> Vital signs: Vital Signs 06/07/18 20:00 06/08/18 00:00 06/08/18 04:00 Temperature 98.0 F 98.2 F 98.0 F Pulse Rate 66 63 60 Respiratory Rate 20 19 19 Blood Pressure 161/69 H 129/59 L 111/51 L Pulse Oximetry 96 98 97 06/08/18 08:00 06/08/18 12:00 Temperature 97.6 F 98.1 F Pulse Rate 60 68 Respiratory Rate 16 17 Blood Pressure 132/63 122/56 L Pulse Oximetry 99 98 Intake & Output 06/07/18 06/08/18 06/08/18 18:59 06:59 18:59 Intake Total 250 / 250 700 / 700 Output Total 3000 / 3000 Balance -2750 / -2750 700 / 700 Weight 133.6 kg Intake: IV 250 / 250 Vancomycin Inj 1,000 MG In NS 250 / 250 Inj 250 ML @ 250 mls/hr IV.SIG [facility] Rx#:[id number] Oral 700 / 700 Output: Hemodialysis Amount 3000 / 3000 Other: Date of Last Bowel Movement 06/03/18 06/06/18 <Moni Alvarado - Last Filed: 06/08/18 18:42> Assessment and Plan - Assessment (1) ESRD (end stage renal disease) on dialysis Code(s): N18.6 - End stage renal disease; Z99.2 - Dependence on renal dialysis Status: Acute Plan: Patient with end stage renal disease on HD TTS. Epogen with dialysis. MRSA in graft, Excision of AVG. Will need to continue antibiotics for 6 weeks as per ID. Cleared per vascular for discharge, will need follow up outpatient for AVF creation. Cleared per Nephrology for discharge. (2) DM (diabetes mellitus) Code(s): E11.9 - Type 2 diabetes mellitus without complications Status: Chronic Plan: Recommend to maintain blood sugars between 140 mg/dl to 180 mg/dl while hospitalized. (3) Anemia Code(s): D64.9 - Anemia, unspecified Status: Acute Plan: Epogen ordered with dialysis. HGB has been stable, s/p blood transfusions. (4) Sepsis Code(s): A41.9 - Sepsis, unspecified organism Status: Acute Plan: Blood cultures positive for MRSA. Has MRSA Bacteremia, source ? AVG removed; Antibiotics per ID recommendations, renal dose as appropriate (5) Osteomyelitis of left foot Code(s): M86.9 - Osteomyelitis, unspecified Status: Acute Plan: PVD with osteomyelitis Left BKA on . Need to have angiogram of right leg for non healing wounds <Christa Velasquez - Last Filed: 06/08/18 15:40> - Assessment (1) ESRD (end stage renal disease) on dialysis Code(s): N18.6 - End stage renal disease; Z99.2 - Dependence on renal dialysis Status: Acute Plan: Patient seen and examined, agree with above. Patient is for discharge today. Continue HD tomorrow as out patient. (2) DM (diabetes mellitus) Code(s): E11.9 - Type 2 diabetes mellitus without complications Status: Chronic (3) Anemia Code(s): D64.9 - Anemia, unspecified Status: Acute (4) Sepsis Code(s): A41.9 - Sepsis, unspecified organism Status: Acute (5) Osteomyelitis of left foot Code(s): M86.9 - Osteomyelitis, unspecified Status: Acute <Moni Alvarado - Last Filed: 06/08/18 18:42>
== END 2018-06-08 14:38 ==
LOC: NEPE 00:15 → NEDA 00:15 → NEPGCP 04:11 → NEDA 04:11 → HIMC 15:25 → N07 05-26 11:20
PROVIDERS: ADMIT Internal Medicine; ATTEND Internal Medicine
PROC: ANGIOLE (2018-05-24 12:30)
DX: I48.91 Unspecified atrial fibrillation; E11.52 Type 2 diabetes mellitus with diabetic peripheral angiopathy with gangrene; E11.69 Type 2 diabetes mellitus with other specified complication; Z79.02 Long term (current) use of antithrombotics/antiplatelets; I70.203 Unspecified atherosclerosis of native arteries of extremities, bilateral legs; L03.032 Cellulitis of left toe; N18.6 End stage renal disease; M86.171 Other acute osteomyelitis, right ankle and foot; A41.02 Sepsis due to Methicillin resistant Staphylococcus aureus; Z95.5 Presence of coronary angioplasty implant and graft; F32.9 Major depressive disorder, single episode, unspecified; Z68.37 Body mass index [BMI] 37.0-37.9, adult; Y83.2 Surgical operation with anastomosis, bypass or graft as the cause of abnormal reaction of the patient, or of later complication, without mention of misadventure at the time of the procedure; I12.0 Hypertensive chronic kidney disease with stage 5 chronic kidney disease or end stage renal disease; E11.621 Type 2 diabetes mellitus with foot ulcer; R07.89 Other chest pain; K59.00 Constipation, unspecified; Z89.412 Acquired absence of left great toe; D62 Acute posthemorrhagic anemia; E11.42 Type 2 diabetes mellitus with diabetic polyneuropathy; Z86.14 Personal history of Methicillin resistant Staphylococcus aureus infection; Z77.22 Contact with and (suspected) exposure to environmental tobacco smoke (acute) (chronic); Z96.653 Presence of artificial knee joint, bilateral; Z99.2 Dependence on renal dialysis; I96 Gangrene, not elsewhere classified; L97.521 Non-pressure chronic ulcer of other part of left foot limited to breakdown of skin; D63.1 Anemia in chronic kidney disease; F41.9 Anxiety disorder, unspecified; G93.41 Metabolic encephalopathy; K21.9 Gastro-esophageal reflux disease without esophagitis; Z95.0 Presence of cardiac pacemaker; E87.1 Hypo-osmolality and hyponatremia; Z95.810 Presence of automatic (implantable) cardiac defibrillator; L97.424 Non-pressure chronic ulcer of left heel and midfoot with necrosis of bone; Z79.82 Long term (current) use of aspirin; R65.20 Severe sepsis without septic shock; Z89.421 Acquired absence of other right toe(s); Z89.411 Acquired absence of right great toe; E66.9 Obesity, unspecified; I25.10 Atherosclerotic heart disease of native coronary artery without angina pectoris; E78.5 Hyperlipidemia, unspecified; L03.031 Cellulitis of right toe; Z79.4 Long term (current) use of insulin; L03.114 Cellulitis of left upper limb; T82.7XXA Infection and inflammatory reaction due to other cardiac and vascular devices, implants and grafts, initial encounter; E83.51 Hypocalcemia; G40.909 Epilepsy, unspecified, not intractable, without status epilepticus; E11.65 Type 2 diabetes mellitus with hyperglycemia; M86.172 Other acute osteomyelitis, left ankle and foot; E87.5 Hyperkalemia; Z86.73 Personal history of transient ischemic attack (TIA), and cerebral infarction without residual deficits; L97.819 Non-pressure chronic ulcer of other part of right lower leg with unspecified severity; I25.2 Old myocardial infarction; D69.6 Thrombocytopenia, unspecified; E11.22 Type 2 diabetes mellitus with diabetic chronic kidney disease; E11.3519 Type 2 diabetes mellitus with proliferative diabetic retinopathy with macular edema, unspecified eye; L97.519 Non-pressure chronic ulcer of other part of right foot with unspecified severity